=== PATIENT | male | born 1940 | race Caucasian/White ===

== ENCOUNTER 2018-02-21 10:11 | Inpatient (IN) | payer MEDICARE ==
--- NOTE | 2018-02-21 11:05 | ED ---
General Adult HPI - General Chief complaint: Chest Pain Stated complaint: Abnormal EKG Time Seen by Provider: 02/21/18 10:15 Source: patient, RN notes reviewed Mode of arrival: ambulatory Limitations: no limitations - History of Present Illness Initial comments: This is a 77-year-old male who presents emergency Department complaining of shortness of breath over a week. Patient states she is no medical history. Patient states he comes in today because of shortness of breath got worse and his primary medical care doctor told him go to the hospital. Patient was also noticed increased edema in his legs. Patient states shortness of breath is much worse with exertion. Patient denies any chest pain palpitations. Patient denies any abdominal pain patient denies nausea vomiting diarrhea. Patient denies headache patient denies numbness weakness. Patient denies any near syncopal or syncopal episodes. - Related Data Home Medications Medication Instructions Recorded Confirmed Finasteride 1 mg PO DAILY 07/13/16 07/13/16 Previous Rx's Medication Instructions Recorded Cephalexin [Keflex] 500 mg PO Q12HR 7 Days cap 07/14/16 Allergies Allergy/AdvReac Type Severity Reaction Status Date / Time No Known Allergies Allergy Verified 02/21/18 10:25 Review of Systems ROS Statement: Those systems with pertinent positive or pertinent negative responses have been documented in the HPI. ROS Other: All systems not noted in ROS Statement are negative. Past Medical History Past Medical History: Prostate Disorder History of Any Multi-Drug Resistant Organisms: None Reported Past Surgical History: Appendectomy Past Psychological History: No Psychological Hx Reported Smoking Status: Never smoker Past Alcohol Use History: Rare Past Drug Use History: None Reported General Exam - General Exam Comments Initial Comments: GENERAL: Patient is well-developed and well-nourished. Patient is nontoxic and well- hydrated and is in mild distress. ENT: Neck is soft and supple. No significant lymphadenopathy is noted. Oropharynx is clear. Moist mucous membranes. Neck has full range of motion without eliciting any pain. EYES: The sclera were anicteric and conjunctiva were pink and moist. Extraocular movements were intact and pupils were equal round and reactive to light. Eyelids were unremarkable. PULMONARY: Unlabored respirations. Good breath sounds bilaterally. No audible rales rhonchi or wheezing was noted. CARDIOVASCULAR: There is a regular rate and rhythm without any murmurs gallops or rubs. ABDOMEN: Soft and nontender with normal bowel sounds. No palpable organomegaly was noted. There is no palpable pulsatile mass. SKIN: Skin is clear with no lesions or rashes and otherwise unremarkable. NEUROLOGIC: Patient is alert and oriented x3. Cranial nerves II through XII are grossly intact. Motor and sensory are also intact. Normal speech, volume and content. Symmetrical smile. MUSCULOSKELETAL: Normal extremities with adequate strength and full range of motion. 2+ bilateral edema LYMPHATICS: No significant lymphadenopathy is noted PSYCHIATRIC: Normal psychiatric evaluation. Normal interpersonal interactions appears functionally intact in deals appropriately with others. No signs of depression. No signs of anxiety. Limitations: no limitations Course Vital Signs 02/21/18 02/21/18 10:21 10:41 Temperature 97.1 F L Pulse Rate 67 65 Respiratory 24 24 Rate Blood Pressure 200/100 192/94 O2 Sat by Pulse 91 L 95 Oximetry Medical Decision Making - Medical Decision Making EKG shows normal sinus rhythm at 73 bpm NE interval 240 QRS is 114 QT interval 420 QTC is 462. Patient's EKG shows no ST segment elevation or depression or T wave abnormalities are noted. Chest x-ray shows pulmonary edema. I gave the patient Lasix and placed Nitropaste on his chest. I spoke with Dr. Lombardo he agreed to admit the patient admitted I wrote admitting orders and I gave the patient Lasix and Nitropaste on the floor as well - Lab Data Result diagrams: 02/21/18 10:30 02/21/18 10:30 Lab Results 02/21/18 02/21/18 02/21/18 Range/Units 10:30 10:30 10:30 WBC 6.8 (3.8-10.6) k/uL RBC 4.22 L (4.30-5.90) m/uL Hgb 12.8 L (13.0-17.5) gm/dL Hct 37.6 L (39.0-53.0) % MCV 89.2 (80.0-100.0) fL MCH 30.2 (25.0-35.0) pg MCHC 33.9 (31.0-37.0) g/dL RDW 14.5 (11.5-15.5) % Plt Count 232 (150-450) k/uL Neutrophils % 75 % Lymphocytes % 15 % Monocytes % 7 % Eosinophils % 1 % Basophils % 0 % Neutrophils # 5.1 (1.3-7.7) k/uL Lymphocytes # 1.0 (1.0-4.8) k/uL Monocytes # 0.5 (0-1.0) k/uL Eosinophils # 0.1 (0-0.7) k/uL Basophils # 0.0 (0-0.2) k/uL PT (9.0-12.0) sec INR (<1.2) APTT (22.0-30.0) sec Sodium 147 H (137-145) mmol/L Potassium 4.1 (3.5-5.1) mmol/L Chloride 110 H (98-107) mmol/L Carbon Dioxide 24 (22-30) mmol/L Anion Gap 13 mmol/L BUN 25 H (9-20) mg/dL Creatinine 0.78 (0.66-1.25) mg/dL Est GFR (CKD-EPI)AfAm >90 (>60 ml/min/1.73 sqM) Est GFR (CKD-EPI)NonAf 87 (>60 ml/min/1.73 sqM) Glucose 99 (74-99) mg/dL Calcium 9.4 (8.4-10.2) mg/dL Magnesium 2.0 (1.6-2.3) mg/dL Total Bilirubin 1.5 H (0.2-1.3) mg/dL AST 26 (17-59) U/L ALT 37 (21-72) U/L Alkaline Phosphatase 68 (38-126) U/L Total Creatine Kinase 331 H (55-170) U/L CK-MB (CK-2) 4.2 H* (0.0-2.4) ng/mL CK-MB (CK-2) Rel Index 1.3 Troponin I 0.047 H* (0.000-0.034) ng/mL NT-Pro-B Natriuret Pep pg/mL Total Protein 6.6 (6.3-8.2) g/dL Albumin 3.8 (3.5-5.0) g/dL 02/21/18 02/21/18 Range/Units 10:30 10:30 WBC (3.8-10.6) k/uL RBC (4.30-5.90) m/uL Hgb (13.0-17.5) gm/dL Hct (39.0-53.0) % MCV (80.0-100.0) fL MCH (25.0-35.0) pg MCHC (31.0-37.0) g/dL RDW (11.5-15.5) % Plt Count (150-450) k/uL Neutrophils % % Lymphocytes % % Monocytes % % Eosinophils % % Basophils % % Neutrophils # (1.3-7.7) k/uL Lymphocytes # (1.0-4.8) k/uL Monocytes # (0-1.0) k/uL Eosinophils # (0-0.7) k/uL Basophils # (0-0.2) k/uL PT 13.2 H (9.0-12.0) sec INR 1.4 H (<1.2) APTT 24.8 (22.0-30.0) sec Sodium (137-145) mmol/L Potassium (3.5-5.1) mmol/L Chloride (98-107) mmol/L Carbon Dioxide (22-30) mmol/L Anion Gap mmol/L BUN (9-20) mg/dL Creatinine (0.66-1.25) mg/dL Est GFR (CKD-EPI)AfAm (>60 ml/min/1.73 sqM) Est GFR (CKD-EPI)NonAf (>60 ml/min/1.73 sqM) Glucose (74-99) mg/dL Calcium (8.4-10.2) mg/dL Magnesium (1.6-2.3) mg/dL Total Bilirubin (0.2-1.3) mg/dL AST (17-59) U/L ALT (21-72) U/L Alkaline Phosphatase (38-126) U/L Total Creatine Kinase (55-170) U/L CK-MB (CK-2) (0.0-2.4) ng/mL CK-MB (CK-2) Rel Index Troponin I (0.000-0.034) ng/mL NT-Pro-B Natriuret Pep 4100 pg/mL Total Protein (6.3-8.2) g/dL Albumin (3.5-5.0) g/dL Critical Care Time Critical Care Time: Yes Total Critical Care Time: 35 Disposition Clinical Impression: Acute pulmonary edema Disposition: ADMITTED IP TO THIS HOSP Referrals: Trino Muñoz MD [Primary Care Provider] - 1-2 days Time of Disposition: 12:59
[2018-02-21 11:13] LABS: Basophils % (A) 0 %; Eosinophils # (A) 0.1 k/uL (0-0.7); Eosinophils % (A) 1 %; HCT 37.6 % (39.0-53.0); HGB 12.8 gm/dL (13.0-17.5); Lymphocytes % (A) 15 %; MCH 30.2 pg (25.0-35.0); MCHC 33.9 g/dL (31.0-37.0); MCV 89.2 fL (80.0-100.0); Mean Platelet Volume 7.5; Monocytes # (A) 0.5 k/uL (0-1.0); Monocytes % (A) 7 %; Neutrophils # (A) 5.1 k/uL (1.3-7.7); Neutrophils % (A) 75 %; Platelet Count 232 k/uL (150-450); RBC 4.22 m/uL (4.30-5.90); RDW 14.5 % (11.5-15.5); WBC 6.8 k/uL (3.8-10.6)
[2018-02-21 11:23] LABS: ALT 37 U/L (21-72); AST 26 U/L (17-59); Albumin 3.8 g/dL (3.5-5.0); Alkaline Phosphatase 68 U/L (38-126); Anion Gap 13 mmol/L; Blood Urea Nitrogen 25 mg/dL (9-20); Calcium 9.4 mg/dL (8.4-10.2); Carbon Dioxide 24 mmol/L (22-30); Chloride 110 mmol/L (98-107); Glucose 99 mg/dL (74-99); Potassium 4.1 mmol/L (3.5-5.1); Sodium 147 mmol/L (137-145); Total Bilirubin 1.5 mg/dL (0.2-1.3); Total Protein 6.6 g/dL (6.3-8.2)
[2018-02-21 11:40] LABS: Partial Thromboplastin Time 24.8 sec (22.0-30.0)
[2018-02-21 11:42] LABS: INR 1.4 (<1.2); Prothrombin Time 13.2 sec (9.0-12.0)
[2018-02-21 11:48] LABS: Creatine Kinase MB 4.2 ng/mL (0.0-2.4); Troponin I 0.047 ng/mL (0.000-0.034)
[2018-02-21] MEDS ORDERED: NITROGLYCERIN OINT 1 INCH/GM PACKET TOPICAL STA (12:16)
[2018-02-21] MEDS: FUROSEMIDE 10 MG/ML 2 ML VIAL IV STA ×2 (12:35→13:02)
[2018-02-21] MEDS ORDERED: FUROSEMIDE 10 MG/ML 2 ML VIAL IV ONE (12:39)
--- NOTE | 2018-02-21 12:41 | XR ---
EXAMINATION TYPE: XR chest 2V DATE OF EXAM: 02/21/2018 COMPARISON: Prior chest 04/03/2013 HISTORY: Difficulty breathing TECHNIQUE: Frontal and lateral views of the chest are obtained. FINDINGS: Prominent lung volumes suggest underlying COPD. There is patchy basilar density present po steriorly, the interstitium is diffusely increased. Thoracic aorta appears is dense. No evident pneum othorax. Heart size is borderline increased, there is blunting of the costophrenic angles. IMPRESSION: Correlate for pulmonary venous hypertension and interstitial edema patient with pre-exis ting COPD. Follow up recommended. There may be small effusions.
[2018-02-21] MEDS ORDERED: ASPIRIN 325 MG TAB PO STA (12:59)
[2018-02-21] MEDS ORDERED: FUROSEMIDE 10 MG/ML 4 ML VIAL IV SCH (13:00)
[2018-02-21] MEDS: NITROGLYCERIN OINT 1 INCH/GM PACKET TOPICAL SCH ×3 (13:02→22:30)
[2018-02-21] MEDS: FUROSEMIDE 10 MG/ML 4 ML VIAL IV SCH (18:00)
[2018-02-21] MEDS: TAMSULOSIN 0.4 MG CAP.ER.24H PO SCH (19:00)
[2018-02-21] MEDS ORDERED: ALBUTEROL NEBULIZED 2.5 MG/3 ML INHALATION PRN (19:14)
[2018-02-21] MEDS ORDERED: HEPARIN SODIUM,PORCINE 5,000 UNIT/ML 1 ML VIAL IV PRN (19:16)
--- NOTE | 2018-02-21 19:23 | P.HPIM ---
History of Present Illness patient is a very pleasant 77-year-old gentleman came in with complaints of shortness of breath has been going on for about a month much worse for last couple days patient was also complaining of chest pressure-like sensation for about a week denied any diaphoresis denied any nausea vomiting patient was also comparing of orthopnea for last 3 days and the proximal nocturnal dyspnea for the last 3 days. Patient is found to have pulmonary edema with elevated BNP and also JVD patient apparently complained upper lid edema which I did not see on my evaluation. Patient has minimally elevated the troponin of 0.047 patient was started on IV heparin patient was started on IV Lasix. Echocardiogram will be ordered cardiology was consulted. Patient apparently has benign prostatic hypertrophy unable to urinate with Lasix because of which only catheter was placed patient will be started on Flomax patient is being treated for bronchitis with levofloxacin which I do not believe he has on levofloxacin will be discontinued patient was never smoker but does have emphysematous changes on the chest x-ray Review of Systems REVIEW OF SYSTEMS: CONSTITUTIONAL: No fever, no malaise, no fatigue. HEENT: No recent visual problems or hearing problems. Denied any sore throat. CARDIOVASCULAR: as mentioned in HPI PULMONARY: , no cough, no hemoptysis. GASTROINTESTINAL: No diarrhea, no nausea, no vomiting, no abdominal pain. Normoactive bowel sounds. NEUROLOGICAL: No headaches, no weakness, no numbness. HEMATOLOGICAL: Denies any bleeding or petechiae. GENITOURINARY: Denies any burning micturition, frequency, or urgency. MUSCULOSKELETAL/RHEUMATOLOGICAL: Denies any joint pain, swelling, or any muscle pain. ENDOCRINE: Denies any polyuria or polydipsia. The rest of the 14-point review of systems is negative. Past Medical History Past Medical History: Prostate Disorder History of Any Multi-Drug Resistant Organisms: None Reported Past Surgical History: Appendectomy, Heart Catheterization Past Anesthesia/Blood Transfusion Reactions: No Reported Reaction Past Psychological History: No Psychological Hx Reported Smoking Status: Never smoker Past Alcohol Use History: Rare Past Drug Use History: None Reported Medications and Allergies Home Medications Medication Instructions Recorded Confirmed Type Albuterol Inhaler [Ventolin Hfa 1 - 2 puff INHALATION RT-Q4H PRN 02/21/18 History Inhaler] Finasteride [Proscar] 1 tab PO DAILY 02/21/18 02/21/18 History Fluticasone/Umeclidin/Vilanter 1 puff INHALATION RT-DAILY 02/21/18 02/21/18 History [Trelegy Ellipta 100-62.5-25] Levofloxacin [Levaquin] 500 mg PO DAILY 02/21/18 02/21/18 History Allergies Allergy/AdvReac Type Severity Reaction Status Date / Time No Known Allergies Allergy Verified 02/21/18 13:08 Physical Exam Vitals: Vital Signs Temp Pulse Pulse Resp BP BP Pulse Ox 02/21/18 18:41 98.1 F 53 L 18 148/71 96 02/21/18 17:22 98.6 F 51 L 20 154/87 98 02/21/18 16:28 58 L 16 156/80 98 02/21/18 15:00 65 16 165/78 98 02/21/18 14:00 63 16 174/91 98 02/21/18 13:00 98.0 F 65 18 153/75 96 02/21/18 10:41 65 24 192/94 95 02/21/18 10:21 97.1 F L 67 24 200/100 91 L Intake and Output 02/21/18 02/21/18 02/21/18 06:59 14:59 22:59 Output Total 1598 1800 Balance -1598 -1800 Output: Urine 800 1800 Post Void Residual 798 Stool 0 Other: Voiding Method Indwelling Catheter # Voids 0 # Bowel Movements 0 Weight 102.512 kg PHYSICAL EXAMINATION: GENERAL: The patient is alert and oriented x3, not in any acute distress. Well developed, well nourished. HEENT: Pupils are round and equally reacting to light. EOMI. No scleral icterus. No conjunctival pallor. Normocephalic, atraumatic. No pharyngeal erythema. No thyromegaly. CARDIOVASCULAR: S1 and S2 present. No murmurs, rubs, or gallops. patient does have elevated JVD PULMONARY: Chest is clear to auscultation, no wheezing, does have crackles bilateral lower lung bases. ABDOMEN: Soft, nontender, nondistended, normoactive bowel sounds. No palpable organomegaly. MUSCULOSKELETAL: No joint swelling or deformity. EXTREMITIES: No cyanosis, clubbing, or pedal edema. NEUROLOGICAL: Gross neurological examination did not reveal any focal deficits. SKIN: No rashes. Results CBC & Chem 7: 02/21/18 10:30 02/21/18 10:30 Labs: Abnormal Lab Results - Last 24 Hours (Table) 02/21/18 02/21/18 02/21/18 Range/Units 10:30 10:30 10:30 RBC 4.22 L (4.30-5.90) m/uL Hgb 12.8 L (13.0-17.5) gm/dL Hct 37.6 L (39.0-53.0) % PT (9.0-12.0) sec INR (<1.2) Sodium 147 H (137-145) mmol/L Chloride 110 H (98-107) mmol/L BUN 25 H (9-20) mg/dL Total Bilirubin 1.5 H (0.2-1.3) mg/dL Total Creatine Kinase 331 H (55-170) U/L CK-MB (CK-2) 4.2 H* (0.0-2.4) ng/mL Troponin I 0.047 H* (0.000-0.034) ng/mL 02/21/18 Range/Units 10:30 RBC (4.30-5.90) m/uL Hgb (13.0-17.5) gm/dL Hct (39.0-53.0) % PT 13.2 H (9.0-12.0) sec INR 1.4 H (<1.2) Sodium (137-145) mmol/L Chloride (98-107) mmol/L BUN (9-20) mg/dL Total Bilirubin (0.2-1.3) mg/dL Total Creatine Kinase (55-170) U/L CK-MB (CK-2) (0.0-2.4) ng/mL Troponin I (0.000-0.034) ng/mL Thrombosis Risk Factor Assmnt - Choose All That Apply Each Risk Factor Represents 3 Points: Age 75 years or older Thrombosis Risk Factor Assessment Total Risk Factor Score: 3 Thrombosis Risk Factor Assessment Level: Moderate Risk Assessment and Plan Plan: pulmonary edema: Probably related to acute systolic dysfunction with acute exacerbation. Patient was started on IV Lasix which will be continued. -possible non-ST elevation microinfarction leading to acute pulmonary edema: Echocardiogram will be obtained patient has nitro patch in place and patient will will be started on IV heparin cardiology was consulted. -Benign prostatic hypertrophy. -Acute respiratory failure secondary to congestive heart failure exacerbation.
[2018-02-21] MEDS ORDERED: HEPARIN SODIUM,PORCINE 5,000 UNIT/ML 1 ML VIAL IV ONE (19:30)
[2018-02-21 19:58] LABS: Basophils % (A) 0 %; Eosinophils # (A) 0.1 k/uL (0-0.7); Eosinophils % (A) 1 %; HCT 36.7 % (39.0-53.0); HGB 12.4 gm/dL (13.0-17.5); Lymphocytes # (A) 1.2 k/uL (1.0-4.8); Lymphocytes % (A) 14 %; MCH 30.2 pg (25.0-35.0); MCHC 33.8 g/dL (31.0-37.0); MCV 89.5 fL (80.0-100.0); Mean Platelet Volume 7.6; Monocytes # (A) 0.7 k/uL (0-1.0); Monocytes % (A) 7 %; Neutrophils # (A) 6.7 k/uL (1.3-7.7); Neutrophils % (A) 76 %; Platelet Count 232 k/uL (150-450); RDW 14.4 % (11.5-15.5); WBC 8.8 k/uL (3.8-10.6)
[2018-02-21 20:23] LABS: INR 1.4 (<1.2); Partial Thromboplastin Time 25.5 sec (22.0-30.0); Prothrombin Time 13.3 sec (9.0-12.0)
[2018-02-21] MEDS: HEPARIN SOD,PORK IN 0.45% NACL 25,000 UNIT in 0.45% NACL 1 500ML.BAG IV SCH (21:13)
[2018-02-22 04:00] LABS: Basophils % (A) 0 %; Eosinophils # (A) 0.2 k/uL (0-0.7); Eosinophils % (A) 2 %; HCT 37.5 % (39.0-53.0); HGB 11.8 gm/dL (13.0-17.5); Lymphocytes # (A) 1.2 k/uL (1.0-4.8); Lymphocytes % (A) 16 %; MCH 28.4 pg (25.0-35.0); MCHC 31.5 g/dL (31.0-37.0); MCV 90.3 fL (80.0-100.0); Mean Platelet Volume 8.1; Monocytes # (A) 0.6 k/uL (0-1.0); Monocytes % (A) 8 %; Neutrophils # (A) 5.3 k/uL (1.3-7.7); Neutrophils % (A) 72 %; Platelet Count 220 k/uL (150-450); RBC 4.16 m/uL (4.30-5.90); RDW 14.5 % (11.5-15.5); WBC 7.3 k/uL (3.8-10.6)
[2018-02-22 04:16] LABS: Anion Gap 10 mmol/L; Blood Urea Nitrogen 22 mg/dL (9-20); Calcium 9.4 mg/dL (8.4-10.2); Carbon Dioxide 28 mmol/L (22-30); Chloride 105 mmol/L (98-107); Glucose 102 mg/dL (74-99); Potassium 3.9 mmol/L (3.5-5.1); Sodium 143 mmol/L (137-145)
[2018-02-22] MEDS: FUROSEMIDE 10 MG/ML 4 ML VIAL IV SCH ×2 (05:09→18:42)
[2018-02-22] MEDS: UMECLIDIN INHALATION SCH (08:03)
[2018-02-22] MEDS: VILANTER INHALATION SCH (08:03)
[2018-02-22] MEDS: FLUTICASONE INHALATION SCH (08:03)
[2018-02-22] MEDS: NITROGLYCERIN OINT 1 INCH/GM PACKET TOPICAL SCH ×4 (08:17→20:52)
[2018-02-22] MEDS: ASPIRIN 325 MG TAB PO SCH (08:17)
[2018-02-22] MEDS: FINASTERIDE 5 MG TAB PO SCH (08:17)
[2018-02-22 09:09] LABS: Cholesterol 147 mg/dL (<200); HDL Cholesterol 40 mg/dL (40-60); LDL Cholesterol,Calculated 95 mg/dL (0-99); Triglycerides 61 mg/dL (<150)
--- NOTE | 2018-02-22 09:22 | CONS ---
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 He also has intermittent episodes of chest pressure. His shortness of breath is moderate in intensity, comes on with exertion and is relieved with rest. Over the last 24-48 hours, this has gotten worse. He was evaluated by his primary care physician who felt that the patient had a recent myocardial infarction and hence sent him to hospital. EKG shows sinus rhythm with evidence of anteroseptal myocardial infarction. Cardiac enzymes are elevated with troponin of 0.04, 06 and 06. BNP is elevated at 4100. His potassium is 3.9, creatinine is 0.9. Hemoglobin is 11.8. His clinical presentation is consistent with acute onset congestive heart failure, probably secondary to LV systolic dysfunction in a patient with myocardial infarction and ischemic heart disease. I advised the patient to undergo cardiac catheterization to evaluate his coronary anatomy and streamline his management. I am going to do this tomorrow. I will obtain a 2D echo on him to document his LV function. In the meantime, I will treat him with aspirin, intravenous Lasix, heparin, continue the nitro paste that he is currently on. Blood pressure is poorly controlled. I am going to add RAIZA inhibitors and we will obtain a lipid profile and start him on statins. PAST MEDICAL HISTORY: Negative for hypertension, diabetes, dyslipidemia. CURRENT MEDICATIONS: Include inhaler, Levaquin, Proscar and Proscar is the only medicine that he regularly takes and the others have been recently started. ALLERGIES: No known drug allergies. FAMILY HISTORY: Negative for premature coronary artery disease. SOCIAL HISTORY: Negative for smoking, ETOH abuse and drug abuse. REVIEW OF SYSTEMS: HEENT is unremarkable. Cardiac as described above. RESPIRATORY: As described above. GI negative. negative. Allergy none. Skin negative. Musculoskeletal significant for arthritis. Hematological: Negative. Endocrine: Negative. CONSTITUTIONAL: Negative. Derm: Negative. ONCOLOGICAL: Negative. Rest of the system review is not relevant. PHYSICAL EXAM: Heart rate is 50 beats per minute, blood pressure is 156/74, respirations 18. There is no jugular venous distention. Carotid upstroke is diminished. There is no bruit. Chest exam reveals good air entry bilaterally. Heart exam reveals first and second heart sounds. No gallop. No murmur. No rub. Abdomen is soft, nontender. Exam of the extremities did not reveal any edema. Pulses palpable. Extremities reveals bilateral 1+ edema. Peripheral pulses are felt. LAB: Showed a hemoglobin of 11.8, potassium is 3.9, creatinine is 0.9. Three sets of tropes are mildly elevated. BNP is elevated at 4100. EKG is abnormal, shows evidence of prior anteroseptal myocardial infarction. Chest x-ray shows pulmonary congestion. ASSESSMENT: 1. Acute onset congestive heart failure, probably systolic. 2. Non ST-segment elevation myocardial infarction. 3. Hypertension. 4. History of pulmonary embolism. PLAN: I am going to treat the patient with aspirin, nitrates, RAIZA inhibitors, statins, intravenous heparin and continue the IV Lasix. Schedule him for cardiac catheterization tomorrow. Obtain a 2D echo. I am not going to start him on beta blockers given the bradycardia that the patient has. Thank you for allowing us to participate in the care of this pleasant gentleman. MMMERCEDL / IJN: [id number] /
--- NOTE | 2018-02-22 12:44 | P.PN ---
Subjective Patient was admitted for acute systolic dysfunction from possible acute myocardial infarction. Patient's creatinine remained stable patient is receiving IV Lasix which will be continued possibly of cardiac catheterization tomorrow. Patient is feeling much better today patient respiratory status improved significantly compared to yesterday. Constitutional: Denied any fatigue denied any fever. Cardio vascular: denied any chest pain, palpitations Gastrointestinal denied any nausea vomiting Pulmonary: Denied any shortness of breath cough Neurologic denied any new focal deficits Objective - Vital Signs Vital signs: Vital Signs Temp 98.2 F 02/22/18 12:00 Pulse 56 L 02/22/18 12:00 Resp 18 02/22/18 12:00 BP 166/69 02/22/18 12:00 Pulse Ox 96 02/22/18 12:00 Intake & Output 02/21/18 02/22/18 02/22/18 18:59 06:59 18:59 Intake Total 145.667 433.924 Output Total 3398 2950 5700 Balance -3398 -2804.333 -5266.076 Weight 102.512 kg 101.2 kg Intake: Intake, IV Titration 145.667 193.924 Amount Heparin Sod,Pork in 0.45% 145.667 193.924 NaCl 25,000 unit In 0.45 % NaCl 1 500ml.bag @ 9. 755 UNITS/KG/HR 20 mls/hr IV .Q24H [facility] Rx#: [id number] Oral 240 Output: Urine 2600 2950 5700 Post Void Residual 798 Stool 0 0 0 Other: Voiding Method Indwelling Catheter Indwelling Catheter Indwelling Catheter # Voids 0 0 0 # Bowel Movements 0 - Exam PHYSICAL EXAMINATION: GENERAL: The patient is alert and oriented x3, not in any acute distress. Well developed, well nourished. HEENT: Pupils are round and equally reacting to light. EOMI. No scleral icterus. No conjunctival pallor. Normocephalic, atraumatic. No pharyngeal erythema. No thyromegaly. CARDIOVASCULAR: S1 and S2 present. No murmurs, rubs, still has elevated JVD PULMONARY: Patient still has bibasilar crackles fairly good air entry into bilateral lung woodson ABDOMEN: Soft, nontender, nondistended, normoactive bowel sounds. No palpable organomegaly. MUSCULOSKELETAL: No joint swelling or deformity. EXTREMITIES: No cyanosis, clubbing, or pedal edema. NEUROLOGICAL: Gross neurological examination did not reveal any focal deficits. SKIN: No rashes. - Labs CBC & Chem 7: 02/22/18 03:43 02/22/18 03:43 Labs: Abnormal Lab Results - Last 24 Hours (Table) 02/21/18 02/21/18 02/21/18 Range/Units 19:28 19:28 19:28 RBC 4.10 L (4.30-5.90) m/uL Hgb 12.4 L (13.0-17.5) gm/dL Hct 36.7 L (39.0-53.0) % PT 13.3 H (9.0-12.0) sec INR 1.4 H (<1.2) APTT (22.0-30.0) sec BUN (9-20) mg/dL Glucose (74-99) mg/dL Troponin I 0.063 H* (0.000-0.034) ng/mL 02/22/18 02/22/18 02/22/18 Range/Units 00:39 03:43 03:43 RBC 4.16 L (4.30-5.90) m/uL Hgb 11.8 L (13.0-17.5) gm/dL Hct 37.5 L (39.0-53.0) % PT (9.0-12.0) sec INR (<1.2) APTT (22.0-30.0) sec BUN 22 H (9-20) mg/dL Glucose 102 H (74-99) mg/dL Troponin I 0.063 H* (0.000-0.034) ng/mL 02/22/18 Range/Units 10:44 RBC (4.30-5.90) m/uL Hgb (13.0-17.5) gm/dL Hct (39.0-53.0) % PT (9.0-12.0) sec INR (<1.2) APTT 30.3 H (22.0-30.0) sec BUN (9-20) mg/dL Glucose (74-99) mg/dL Troponin I (0.000-0.034) ng/mL Assessment and Plan Plan: pulmonary edema: Probably related to acute systolic dysfunction with acute exacerbation. Patient is on IV Lasix which will be continued. -possible non-ST elevation microinfarction leading to acute pulmonary edema: Echocardiogram will be obtained patient has nitro patch in place and patient will will be started on IV heparin cardiology was consulted. -Benign prostatic hypertrophy. -Acute respiratory failure secondary to congestive heart failure exacerbation.
[2018-02-22] MEDS: FAMOTIDINE 20 MG TAB PO SCH ×2 (13:41→20:51)
[2018-02-22] MEDS: ATORVASTATIN 20 MG TAB PO SCH (13:41)
[2018-02-22] MEDS: TAMSULOSIN 0.4 MG CAP.ER.24H PO SCH (18:43)
[2018-02-22] MEDS: HEPARIN SOD,PORK IN 0.45% NACL 25,000 UNIT in 0.45% NACL 1 500ML.BAG IV SCH (20:52)
[2018-02-23 06:20] LABS: Basophils % (A) 0 %; Eosinophils # (A) 0.2 k/uL (0-0.7); Eosinophils % (A) 2 %; HCT 40.7 % (39.0-53.0); HGB 13.7 gm/dL (13.0-17.5); Lymphocytes # (A) 1.3 k/uL (1.0-4.8); Lymphocytes % (A) 17 %; MCH 29.8 pg (25.0-35.0); MCHC 33.6 g/dL (31.0-37.0); MCV 88.7 fL (80.0-100.0); Mean Platelet Volume 7.3; Monocytes # (A) 0.7 k/uL (0-1.0); Monocytes % (A) 9 %; Neutrophils # (A) 5.4 k/uL (1.3-7.7); Neutrophils % (A) 70 %; Platelet Count 245 k/uL (150-450); RBC 4.59 m/uL (4.30-5.90); RDW 14.2 % (11.5-15.5); WBC 7.8 k/uL (3.8-10.6)
[2018-02-23 06:30] LABS: Calcium 9.5 mg/dL (8.4-10.2); Potassium 4.3 mmol/L (3.5-5.1)
[2018-02-23] MEDS: FUROSEMIDE 10 MG/ML 4 ML VIAL IV SCH (06:41)
[2018-02-23] MEDS ORDERED: ALPRAZolam 0.25 MG TAB PO PRN (07:53)
[2018-02-23] MEDS ORDERED: ATORVASTATIN 80 MG TAB PO STA (07:53)
[2018-02-23] MEDS ORDERED: SODIUM CHLORIDE 0.9% 1,000 ML in EMPTY BAG 1 BAG IV ONE (07:53)
[2018-02-23] MEDS ORDERED: ASPIRIN 325 MG TAB PO STA (07:53)
[2018-02-23] MEDS ORDERED: NITROGLYCERIN SL TABS 0.4 MG TAB SUBLINGUAL PRN ×2 (07:53→13:26)
[2018-02-23] MEDS ORDERED: ALPRAZolam 0.5 MG TAB PO PRN (07:53)
[2018-02-23] MEDS: FINASTERIDE 5 MG TAB PO SCH (08:10)
[2018-02-23] MEDS: FAMOTIDINE 20 MG TAB PO SCH ×2 (08:10→21:51)
[2018-02-23] MEDS: ATORVASTATIN 20 MG TAB PO SCH (08:10)
[2018-02-23] MEDS: ASPIRIN 325 MG TAB PO SCH (08:11)
[2018-02-23] MEDS: NITROGLYCERIN OINT 1 INCH/GM PACKET TOPICAL SCH (08:12)
[2018-02-23] MEDS: UMECLIDIN INHALATION SCH (08:18)
[2018-02-23] MEDS: FLUTICASONE INHALATION SCH (08:18)
[2018-02-23] MEDS: VILANTER INHALATION SCH (08:18)
[2018-02-23] MEDS ORDERED: MIDAZOLAM 2 MG/2 ML VIAL IV ONE (10:42)
[2018-02-23] MEDS ORDERED: IV FLUID CONTINUATION 1,000 ML IV ONE (10:47)
[2018-02-23] MEDS ORDERED: LIDOCAINE 2% INJ 20 MG/ML SQ ONE (10:47)
[2018-02-23] MEDS ORDERED: fentaNYL (PF) 50 MCG/ML 2 ML AMP IV ONE (11:25)
--- NOTE | 2018-02-23 12:05 | CC ---
CARDIAC CATHETERIZATION REPORT INDICATION: Non ST-segment elevation myocardial infarction. After obtaining informed consent, left heart catheterization, coronary angiogram are performed via the right femoral artery using standard Napoleon catheters. The patient tolerated the procedure well without any obvious immediate complications. Patient received moderate conscious sedation. Total sedation time was 30 minutes. The patient has a very tortuous aorta. I could not engage the left coronary artery using the size 4 or size 5 Napoleon catheter, but was able to engage it using a multipurpose catheter. Right coronary artery was engaged using a Agustin posterior catheter after trying Napoleon and bill catheters. FINDINGS: 1. RIGHT CORONARY ARTERY: Right coronary artery is a large dominant vessel and is free of significant stenosis. There is a mild atherosclerotic plaque in its proximal portion. 2. Left main coronary artery is a normal-sized vessel and is free of stenosis appears calcified, but is free of significant disease. Divides into circumflex coronary artery and left anterior descending coronary artery. 3. and its branches are free of significant stenosis. Left anterior descending coronary artery appears subtotally occluded just after the origin of the large septal can washer, but is the large vessel that seems to wrap around the apex of the heart. CONCLUSIONS: 1. 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 2. 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 PLAN: I am going to have Dr. Hurtado the on-call hospital orderly attempt angioplasty of the LAD. MMMERCEDL / ROBERTN: [id number] /
[2018-02-23] MEDS ORDERED: BIVALIRUDIN BOLUS 250 MG/50 ML IV ONE (12:44)
[2018-02-23] MEDS ORDERED: BIVALIRUDIN 250 MG in SODIUM CHLORIDE 0.9% 50 ML IV ONE (12:45)
[2018-02-23] MEDS ORDERED: CLOPIDOGREL 75 MG TAB PO ONE (12:47)
[2018-02-23] MEDS ORDERED: NITROGLYCERIN 1000MCG/10ML SYRINGE INTRACORON ONE (12:52)
--- NOTE | 2018-02-23 12:52 | ECHOF ---
Referral Reason:CHF MEASUREMENTS -------- HEIGHT: 180.3 cm WEIGHT: 101.2 kg BP: 128/82 IVSd: 1.2 cm (0.6 - 1.1) LVIDd: 4.4 cm (3.9 - 5.3) LVPWd: 1.2 cm (0.6 - 1.1) IVSs: 1.6 cm LVIDs: 3.5 cm LVPWs: 1.5 cm LAESV Index (A-L): 24.67 ml/m Ao Diam: 3.8 cm (2.0 - 3.7) AV Cusp: 1.9 cm (1.5 - 2.6) LA Diam: 4.6 cm (2.7 - 3.8) MV EXCURSION: 14.577 mm (> 18.000) MV EF SLOPE: 30 mm/s (70 - 150) EPSS: 2.7 cm MV E Pool: 0.45 m/s MV DecT: 215 ms MV A Pool: 0.68 m/s MV E/A Ratio: 0.66 AR PHT: 652 ms RAP: 5.00 mmHg RVSP: 9.86 mmHg FINDINGS -------- Sinus rhythm. Resting bradycardia (HR<60bpm). This was a technically good study. The left ventricular size is normal. There is mild concentric left ventricular hypertrophy. Overa ll left ventricular systolic function is mild-moderately impaired with, an EF between 40 - 45 %. Ap ical anterior LV wall motion is hypokinetic. Apical inferior LV wall motion is hypokinetic. The right ventricle is normal in size and function. The left atrium is mildly dilated. The right atrium is normal in size. Aortic valve is trileaflet and is mildly thickened. There is mild aortic regurgitation. The mitral valve leaflets are mildly thickened. There is trace mitral regurgitation. Trace tricuspid regurgitation present. The right ventricular systolic pressure, as measured by Dopp ler, is 9.86mmHg. Pulmonic valve appears structurally normal. The aortic root is mildy dilated. Normal inferior vena cava with normal inspiratory collapse consistent with estimated right atrial pre ssure of 5 mmHg. The pericardium is normal. CONCLUSIONS -------- 1. Sinus rhythm. 2. Resting bradycardia (HR<60bpm). 3. This was a technically good study. 4. The left ventricular size is normal. 5. There is mild concentric left ventricular hypertrophy. 6. Overall left ventricular systolic function is mild-moderately impaired with, an EF between 40 - 45 %. 7. The right ventricle is normal in size and function. 8. The left atrium is mildly dilated. 9. The right atrium is normal in size. 10. Aortic valve is trileaflet and is mildly thickened. 11. There is mild aortic regurgitation. 12. The mitral valve leaflets are mildly thickened. 13. There is trace mitral regurgitation. 14. Trace tricuspid regurgitation present. 15. The right ventricular systolic pressure, as measured by Doppler, is 9.86mmHg. 16. Pulmonic valve appears structurally normal. 17. The aortic root is mildy dilated. 18. Normal inferior vena cava with normal inspiratory collapse consistent with estimated right atrial pressure of 5 mmHg. 19. The pericardium is normal. TECHNICAL PUBLICATIONS WRITER: Re Lagos RDCS
--- NOTE | 2018-02-23 13:06 | P.PN ---
Subjective Patient was admitted for acute systolic dysfunction from possible acute myocardial infarction. Patient's creatinine remained stable patient is receiving IV Lasix which will be continued possibly of cardiac catheterization tomorrow. Patient is feeling much better today patient respiratory status improved significantly compared to yesterday. 02/23/2018 Patient has genitourinary bleeding because of which heparin was discontinued. Patient has ejection fraction of 40-45% underwent cardiac catheterization showed LAD occlusion will undergo stenting of proximal LAD today. Constitutional: Denied any fatigue denied any fever. Cardio vascular: denied any chest pain, palpitations Gastrointestinal denied any nausea vomiting Pulmonary: Denied any shortness of breath cough Neurologic denied any new focal deficits Objective - Vital Signs Vital signs: Vital Signs Temp 97.1 F L 02/23/18 08:00 Pulse 57 L 02/23/18 08:00 Resp 24 02/23/18 08:00 BP 120/69 02/23/18 08:00 Pulse Ox 92 L 02/23/18 08:00 Intake & Output 02/22/18 02/23/18 02/23/18 18:59 06:59 18:59 Intake Total 910.924 160 Output Total 6300 2600 800 Balance -5389.076 -2600 -640 Weight 103.2 kg Intake: IV 160 Sodium Chloride 0.9% 1, 160 000 ml In Empty Bag 1 bag @ 1 ML/KG/HR 103.2 mls/ hr IV .Q9H42M ONE Rx#: [id number] Intake, IV Titration 193.924 Amount Heparin Sod,Pork in 0.45% 193.924 NaCl 25,000 unit In 0.45 % NaCl 1 500ml.bag @ 9. 755 UNITS/KG/HR 20 mls/hr IV .Q24H [facility] Rx#: [id number] Oral 717 Output: Urine 6300 2600 800 Uretheral (Hair) 750 Stool 0 0 Other: Voiding Method Indwelling Catheter Indwelling Catheter Indwelling Catheter # Voids 0 - Exam PHYSICAL EXAMINATION: GENERAL: The patient is alert and oriented x3, not in any acute distress. Well developed, well nourished. HEENT: Pupils are round and equally reacting to light. EOMI. No scleral icterus. No conjunctival pallor. Normocephalic, atraumatic. No pharyngeal erythema. No thyromegaly. CARDIOVASCULAR: S1 and S2 present. No murmurs, rubs, still has elevated JVD PULMONARY: Patient still has bibasilar crackles fairly good air entry into bilateral lung woodson ABDOMEN: Soft, nontender, nondistended, normoactive bowel sounds. No palpable organomegaly. MUSCULOSKELETAL: No joint swelling or deformity. EXTREMITIES: No cyanosis, clubbing, or pedal edema. NEUROLOGICAL: Gross neurological examination did not reveal any focal deficits. SKIN: No rashes. - Labs CBC & Chem 7: 02/23/18 05:52 02/23/18 05:52 Labs: Abnormal Lab Results - Last 24 Hours (Table) 02/23/18 Range/Units 05:52 Carbon Dioxide 33 H (22-30) mmol/L BUN 25 H (9-20) mg/dL Glucose 109 H (74-99) mg/dL Assessment and Plan Plan: pulmonary edema: Probably related to acute systolic dysfunction with acute exacerbation. Patient is on IV Lasix which will be continued. And has EF of 40-45% -possible non-ST elevation microinfarction leading to acute pulmonary edema: Patient has occlusion of LAD will undergo stenting of LAD today -Benign prostatic hypertrophy. -Acute respiratory failure secondary to congestive heart failure exacerbation.
[2018-02-23] MEDS ORDERED: IOHEXOL 350 MG/ML 125ML BOTTLE INJ ONE (13:17)
[2018-02-23] MEDS ORDERED: ATROPINE SULFATE 0.1 MG/ML 10ML SYRINGE IV PRN (13:26)
[2018-02-23] MEDS ORDERED: ZOLPIDEM 5 MG TAB PO PRN (13:26)
[2018-02-23] MEDS ORDERED: RX INFO: IV CONTRAST WAS GIVEN 1 EACH MISC MISCELLANE PRN (13:26)
[2018-02-23] MEDS ORDERED: MAG HYDROX/AL HYDROX/SIMETH 30 ML CUP PO PRN (13:26)
[2018-02-23] MEDS ORDERED: SODIUM CHLORIDE 0.9% 1,000 ML IV SCH (13:30)
[2018-02-23 13:55] VITALS: BMI 32.6
[2018-02-23] MEDS ORDERED: LISINOPRIL 5 MG TAB PO STA (14:16)
--- NOTE | 2018-02-23 14:56 | AN ---
ANGIOGRAPHY REPORT CORONARY ANGIOPLASTY PROCEDURE NOTE: Mr. Cook is a 77-year-old male who presented with symptoms of dyspnea and mild elevation of the troponin. He is also complaining of chest discomfort that he has been having for a while. He underwent cardiac catheterization by Dr. Alejo and was found to have subtotally occluded mid LAD at the takeoff of the first septal fixed interest dealer. In view of that, recommendation made regarding angioplasty and stenting. The procedures, risks and complication were discussed with the patient who is in full understanding and agreement. PROCEDURE: Initially a 6-Danish EBU 3.75 guiding catheter introduced into the system. That catheter was exchanged to a 6-Danish LBU 4 and after cannulating the left main, a 0.014 advanced medium weight J-wire was advanced in the vessel but could not cross the lesion. That wire was removed and subsequently 0.014 whisper J-wire with the addition of a Fine Cross catheter were used to cross the total occlusion. After crossing the total occlusion, the Fine Cross catheter was removed and a 2.5 x 12 mm Trek balloon was advanced. Multiple inflations at 10 atmospheres were done, following that the balloon was removed and a 2.5 x 23 mm Xience Alpine stent was deployed, postdilated to 16 atmospheres. Following that, a 2.5 x 12 mm Xience Alpine stent was deployed proximal to the first one, post-dilated at 16 atmospheres. Following that, an inflation in the overlap segment at 16 atmospheres were done. Following that, the wire and the balloon was removed back in the guiding catheter. Images were obtained, repeated. Those images reveal stable successful stenting. At that point, the guiding catheter, the balloon and the guidewire were removed. The sheath was sutured in place. The patient is returned to his room in stable condition. Of note, the patient received Angiomax per protocol as well as oral loading dose of clopidogrel. He had chest discomfort with the inflation that improved at the end of the procedure. RESULT: Successful stenting of the totally occluded mid left anterior descending artery at the takeoff of the first septal fixed interest dealer with reduction of stenosis from 90% to 0%. RECOMMENDATION: The patient will be continued on aspirin, Plavix RAIZA inhibitor, and statin. The importance of dual antiplatelet treatment was discussed with the patient and he is in full understanding and agreement. Duration of the procedure is 55 minutes. MMODL / IJN: [id number] /
--- NOTE | 2018-02-23 14:59 | LTR ---
DATE OF SERVICE: 02/23/2018 RE: Rafiq Cook Dear Dr. Muñoz; I had the pleasure to perform coronary angioplasty on Mr. Cook at [facility] on February 23, 2018 and a full copy of the procedure note will be forwarded to you. In brief, he underwent successful stenting of his totally occluded LAD. I am hopeful that this procedure will stabilize his status and thank you again for allowing me to participate in this patient's care. Please feel free to call for any questions. Sincerely yours, Marine Hurtado MD MMMERCEDL / IJN: [id number] /
--- NOTE | 2018-02-23 16:45 | P.GSCN ---
History of Present Illness Consult date: 02/23/18 History of present illness: This 77-year-old gentleman is in the hospital with acute pulmonary edema, congestive heart failure and coronary artery blockage. He ended up having a cardiac cath with stent placement today. He went into urinary retention during his initial hospitalization during diuresis for his pulmonary edema. The patient admits to some difficulty with urination over the last week. He has had frequency and urgency as well as an increased nighttime urination. He is a patient urologically of Dr. Donnie Mckee at [facility]. He has been on finasteride. He recently was placed on tamsulosin during this hospitalization. He has not had previous urologic surgery. There is been no hematuria or incontinence. Review of Systems - Respiratory Reports dyspnea - Genitourinary Reports as per HPI - Musculoskeletal bilateral: ankle swelling Past Medical History Past Medical History: Prostate Disorder History of Any Multi-Drug Resistant Organisms: None Reported Past Surgical History: Appendectomy, Heart Catheterization Past Anesthesia/Blood Transfusion Reactions: No Reported Reaction Past Psychological History: No Psychological Hx Reported Smoking Status: Never smoker Past Alcohol Use History: Rare Past Drug Use History: None Reported Medications and Allergies Home Medications Medication Instructions Recorded Confirmed Type Albuterol Inhaler [Ventolin Hfa 1 - 2 puff INHALATION RT-Q4H PRN 02/21/18 History Inhaler] Finasteride [Proscar] 1 tab PO DAILY 02/21/18 02/21/18 History Fluticasone/Umeclidin/Vilanter 1 puff INHALATION RT-DAILY 02/21/18 02/21/18 History [Trelegy Ellipta 100-62.5-25] Levofloxacin [Levaquin] 500 mg PO DAILY 02/21/18 02/21/18 History Allergies Allergy/AdvReac Type Severity Reaction Status Date / Time No Known Allergies Allergy Verified 02/21/18 13:08 Surgical - Exam Vital Signs Temp Pulse Resp BP Pulse Ox 97.1 F L 67 24 200/100 91 L 02/21/18 10:21 02/21/18 10:21 02/21/18 10:21 02/21/18 10:21 02/21/18 10:21 - General well developed, well nourished, no distress - Eyes PERRL - ENT no hearing loss - Neck no masses - Respiratory normal expansion, normal respiratory effort - Abdomen Abdomen: soft, non tender - Genitourinary Indwelling catheter, normal scrotum testes epididymis. The 30-50 g soft benign prostate - Neurologic normal coordination, normal sensation - Musculoskeletal normal posture - Psychiatric oriented to time, oriented to person, oriented to place, speech is normal, memory intact Results - Labs 02/23/18 05:52 02/23/18 05:52 Abnormal Lab Results - Last 24 Hours (Table) 02/23/18 Range/Units 05:52 Carbon Dioxide 33 H (22-30) mmol/L BUN 25 H (9-20) mg/dL Glucose 109 H (74-99) mg/dL Diabetes panel 02/23/18 Range/Units 05:52 Sodium 142 (137-145) mmol/L Potassium 4.3 (3.5-5.1) mmol/L Chloride 99 (98-107) mmol/L Carbon Dioxide 33 H (22-30) mmol/L BUN 25 H (9-20) mg/dL Creatinine 1.00 (0.66-1.25) mg/dL Glucose 109 H (74-99) mg/dL Calcium 9.5 (8.4-10.2) mg/dL Calcium panel 02/23/18 Range/Units 05:52 Calcium 9.5 (8.4-10.2) mg/dL Pituitary panel 02/23/18 Range/Units 05:52 Sodium 142 (137-145) mmol/L Potassium 4.3 (3.5-5.1) mmol/L Chloride 99 (98-107) mmol/L Carbon Dioxide 33 H (22-30) mmol/L BUN 25 H (9-20) mg/dL Creatinine 1.00 (0.66-1.25) mg/dL Glucose 109 H (74-99) mg/dL Calcium 9.5 (8.4-10.2) mg/dL Adrenal panel 02/23/18 Range/Units 05:52 Sodium 142 (137-145) mmol/L Potassium 4.3 (3.5-5.1) mmol/L Chloride 99 (98-107) mmol/L Carbon Dioxide 33 H (22-30) mmol/L BUN 25 H (9-20) mg/dL Creatinine 1.00 (0.66-1.25) mg/dL Glucose 109 H (74-99) mg/dL Calcium 9.5 (8.4-10.2) mg/dL Assessment and Plan Assessment: Impression: Acute pulmonary edema with coronary artery blockage. Acute urinary retention during diuretic phase of pulmonary edema. BPH with obstruction Recommendations: The patient obviously has enlarged prostate by the fact that he has been on fast tried for some time. His urine retention was during the diuretic phase of his pulmonary edema. It is quite common see urine retention during this period of time especially in gentleman with large prostates. He has been started on tamsulosin. Soon as he is stable medically the catheter can be removed for a voiding trial. If is unable to go he may need an indwelling catheter with a second voiding trial as an outpatient either here in [place] or by his urologist at [facility]. Hopefully he won't need a surgical procedure. I'll follow this patient with you.
[2018-02-23] MEDS: TAMSULOSIN 0.4 MG CAP.ER.24H PO SCH (17:31)
[2018-02-23] MEDS ORDERED: ATORVASTATIN 80 MG TAB PO SCH (21:00)
[2018-02-24 04:33] VITALS: RESP 16
[2018-02-24] MEDS: NITROGLYCERIN OINT 1 INCH/GM PACKET TOPICAL SCH (04:49)
[2018-02-24 06:57] LABS: Basophils % (A) 0 %; Eosinophils # (A) 0.1 k/uL (0-0.7); Eosinophils % (A) 1 %; HGB 13.4 gm/dL (13.0-17.5); Lymphocytes # (A) 0.9 k/uL (1.0-4.8); Lymphocytes % (A) 11 %; MCH 29.1 pg (25.0-35.0); MCHC 32.7 g/dL (31.0-37.0); MCV 89.1 fL (80.0-100.0); Mean Platelet Volume 7.4; Monocytes # (A) 0.7 k/uL (0-1.0); Monocytes % (A) 9 %; Neutrophils # (A) 6.3 k/uL (1.3-7.7); Neutrophils % (A) 76 %; Platelet Count 268 k/uL (150-450); RDW 14.1 % (11.5-15.5); WBC 8.3 k/uL (3.8-10.6)
[2018-02-24 07:24] LABS: Calcium 8.9 mg/dL (8.4-10.2)
[2018-02-24] MEDS: FAMOTIDINE 20 MG TAB PO SCH (08:10)
[2018-02-24] MEDS: FINASTERIDE 5 MG TAB PO SCH (08:10)
[2018-02-24 08:17] VITALS: TEMP 97.6
[2018-02-24] MEDS ORDERED: LISINOPRIL 5 MG TAB PO SCH (09:00)
[2018-02-24] MEDS ORDERED: ASPIRIN 81 MG PO SCH (09:00)
[2018-02-24 12:33] VITALS: BP 111/68; PULSE 65
[2018-02-24] MEDS: FLUTICASONE INHALATION SCH (13:22)
[2018-02-24] MEDS: VILANTER INHALATION SCH (13:22)
[2018-02-24] MEDS: UMECLIDIN INHALATION SCH (13:22)
[2018-02-24] MEDS ORDERED: CLOPIDOGREL 75 MG TAB PO SCH (13:27)
--- NOTE | 2018-02-24 14:02 | P.DS ---
Providers Date of admission: 02/21/18 12:59 Attending physician: Emmie Lombardo Consults: 02/21/18 12:59 Consult Physician Routine Consulting Provider: Gail Toscano Consult Reason/Comments: Acute pulmonary edema Do you want consulting provider notified?: Yes 02/23/18 12:23 Consult Physician Routine Consulting Provider: Rafat Wills Reason/Comments: urine retention required peralta Do you want consulting provider notified?: Yes 02/23/18 13:26 Consult Physician Routine Consulting Provider: Gail Toscano Consult Reason/Comments: Post Interventional patient Do you want consulting provider notified?: Already Contacted Primary care physician: Wanda Ferreira [facility] Course: Patient was admitted for acute systolic dysfunction from possible acute myocardial infarction. Patient's creatinine remained stable patient is receiving IV Lasix which will be continued possibly of cardiac catheterization tomorrow. Patient is feeling much better today patient respiratory status improved significantly compared to yesterday. 02/23/2018 Patient has genitourinary bleeding because of which heparin was discontinued. Patient has ejection fraction of 40-45% underwent cardiac catheterization showed LAD occlusion will undergo stenting of proximal LAD today 02/24/2018 Patient had stenting of LAD patient is clinically doing well will be discharged today neurology evaluated the patient because of urinary retention patient was started on Flomax voiding trail today before discharge. Patient has EF of 40-45 % PHYSICAL EXAMINATION: GENERAL: The patient is alert and oriented x3, not in any acute distress. Well developed, well nourished. HEENT: Pupils are round and equally reacting to light. EOMI. No scleral icterus. No conjunctival pallor. Normocephalic, atraumatic. No pharyngeal erythema. No thyromegaly. CARDIOVASCULAR: S1 and S2 present. No murmurs, rubs, or gallops. PULMONARY: Chest is clear to auscultation, no wheezing or crackles. ABDOMEN: Soft, nontender, nondistended, normoactive bowel sounds. No palpable organomegaly. MUSCULOSKELETAL: No joint swelling or deformity. EXTREMITIES: No cyanosis, clubbing, or pedal edema. NEUROLOGICAL: Gross neurological examination did not reveal any focal deficits. SKIN: No rashes. pulmonary edema: Due to to acute systolic dysfunction with acute exacerbation. Patient is being discharged on lisinopril and Lasix . And has EF of 40-45% -possible non-ST elevation microinfarction leading to acute pulmonary edema: Patient has occlusion of LAD will undergo stenting of LAD today -Benign prostatic hypertrophy. -Acute respiratory failure secondary to congestive heart failure exacerbation. Plan - Discharge Summary Discharge Rx Participant: Yes New Discharge Prescriptions: New Aspirin 81 mg PO DAILY #30 chew Atorvastatin [Lipitor] 80 mg PO HS #30 tab Clopidogrel [Plavix] 75 mg PO DAILY #30 tab Furosemide [Lasix] 40 mg PO DAILY #30 tablet Lisinopril [Zestril] 5 mg PO DAILY #30 tab Nitroglycerin Sl Tabs [Nitrostat] 0.4 mg SUBLINGUAL Q5M PRN #30 tab PRN Reason: Chest Pain Tamsulosin [Flomax] 0.4 mg PO PC-SUPPER #30 cap.er.24h Continue Finasteride [Proscar] 1 tab PO DAILY Albuterol Inhaler [Ventolin Hfa Inhaler] 1 - 2 puff INHALATION RT-Q4H PRN PRN Reason: Shortness Of Breath Fluticasone/Umeclidin/Vilanter [Trelegy Ellipta 100-62.5-25] 1 puff INHALATION RT-DAILY Discontinued Levofloxacin [Levaquin] 500 mg PO DAILY Discharge Medication List Albuterol Inhaler [Ventolin Hfa Inhaler] 1 - 2 puff INHALATION RT-Q4H PRN [History] Finasteride [Proscar] 1 tab PO DAILY 02/21/18 [History] Fluticasone/Umeclidin/Vilanter [Trelegy Ellipta 100-62.5-25] 1 puff INHALATION RT-DAILY 02/21/18 [History] Aspirin 81 mg PO DAILY #30 chew 02/24/18 [Rx] Atorvastatin [Lipitor] 80 mg PO HS #30 tab 02/24/18 [Rx] Clopidogrel [Plavix] 75 mg PO DAILY #30 tab 02/24/18 [Rx] Furosemide [Lasix] 40 mg PO DAILY #30 tablet 02/24/18 [Rx] Lisinopril [Zestril] 5 mg PO DAILY #30 tab 02/24/18 [Rx] Nitroglycerin Sl Tabs [Nitrostat] 0.4 mg SUBLINGUAL Q5M PRN #30 tab 02/24/18 [Rx ] Tamsulosin [Flomax] 0.4 mg PO PC-SUPPER #30 cap.er.24h 02/24/18 [Rx] Follow up Appointment(s)/Referral(s): Trino Muñoz MD [Primary Care Provider] - 03/10/18 1:00 pm (Friday) Tera Alejo MD [STAFF PHYSICIAN] - 03/04/18 4:30 pm (friday) Ambulatory/Diagnostic Orders: Basic Metabolic Panel [LAB.AMB] Time Frame: 3 Days, Location: Determined By Patient Patient Instructions/Handouts: *Surgery [facility] - After Heart Catheterization - Sack Sewer Machine Instructions, Left Heart Catheterization (DC) Discharge Disposition: HOME SELF-CARE
--- NOTE | 2018-02-24 14:52 | P.PN ---
Subjective Progress Note Date: 02/24/18 This is a pleasant 77-year-old gentleman who presented with symptoms of dyspnea on mild elevation of troponin. He was also complaining of some chest discomfort. Underwent cardiac catheterization by Dr. Lancaster was found to have subtotally occluded mid LAD. He subsequently underwent successful stenting of the totally occluded mid LAD at the takeoff of the first septal body liner with reduction of stenosis from 90% to 0% by Dr. Hurtado. Patient did have some urinary retention and was seen by urology. He currently has a Hair catheter in place which is to be discontinued and if patient is unable to void he will currently be discharged with a catheter in place. From cardiac standpoint he's feeling well. Denies complaints of shortness of breath or chest discomfort. Objective - Vital Signs Vital signs: Vital Signs Temp 97.6 F 02/24/18 12:00 Pulse 65 02/24/18 12:00 Resp 16 02/24/18 12:00 BP 111/68 02/24/18 12:00 Pulse Ox 98 02/24/18 12:00 Intake & Output 02/23/18 02/24/18 02/24/18 18:59 06:59 18:59 Intake Total 930.84 402 Output Total 800 5400 600 Balance 130.84 -5400 -198 Weight 103.2 kg 101 kg Intake: IV 708.84 Sodium Chloride 0.9% 1, 572 000 ml In Empty Bag 1 bag @ 1 ML/KG/HR 103.2 mls/ hr IV .Q9H42M ONE Rx#: [id number] Oral 222 402 Output: Urine 800 5400 600 Uretheral (Hair) 600 Stool 0 0 Other: Voiding Method Indwelling Catheter Indwelling Catheter Indwelling Catheter # Voids 0 - Exam PHYSICAL EXAMINATION: HEENT: Head is atraumatic, normocephalic. Pupils equal, round. Neck is supple. There is no elevated jugular venous pressure. HEART EXAMINATION: Heart sounds regular, S1 and S2 normal. No murmur or gallop heard. CHEST EXAMINATION: Lungs are clear to auscultation and precussion. No chest wall tenderness is noted on palpation or with deep breathing. ABDOMEN: Soft, nontender. Bowel sounds are heard. No organomegaly noted. Hair catheter in place at the time of my exam. EXTREMITIES: 2+ peripheral pulses with no evidence of peripheral edema and no calf tenderness noted. NEUROLOGIC patient is awake, alert and oriented x3. . - Labs CBC & Chem 7: 02/24/18 06:08 02/24/18 06:08 Labs: Abnormal Lab Results - Last 24 Hours (Table) 02/24/18 02/24/18 Range/Units 06:08 06:08 Lymphocytes # 0.9 L (1.0-4.8) k/uL BUN 29 H (9-20) mg/dL Glucose 103 H (74-99) mg/dL Assessment and Plan Assessment: #1 acute on chronic systolic congestive heart failure #[address] elevation [place], status post stenting of the mid LAD 3 hypertension #4 history of PE Plan: From cardiology perspective, patient is stable for discharge home. Continue aspirin 81 mg by mouth daily, Lipitor 80 mg by mouth daily at bedtime, Plavix 75 mg by mouth daily and lisinopril 5 mg by mouth daily. Follow-up in the office with Dr. Alejo in about a week. The above dictated assessment and findings were discussed with signing physician. The impression and plan of care have been directed as dictated. Charo Trevizo, Nurse Practitioner, acting as scribe for signing physician.
== END 2018-02-24 17:02 | disposition home or self-care (01) | DRG 246 ==
LOC: EC 10:11 → 6SEL 12:59
PROVIDERS: ADMIT Internal Medicine; ATTEND Internal Medicine
PROC: 027035Z Dilation of Coronary Artery, One Artery with Two Drug-eluting Intraluminal Devices, Percutaneous Approach (ICD-10-PCS; principal; 2018-02-23 10:30)
PROC: B2111ZZ Fluoroscopy of Multiple Coronary Arteries using Low Osmolar Contrast (ICD-10-PCS; 2018-02-23 10:30)
PROC: 4A023N7 Measurement of Cardiac Sampling and Pressure, Left Heart, Percutaneous Approach (ICD-10-PCS; 2018-02-23 10:30)
DX: I21.4 Non-ST elevation (NSTEMI) myocardial infarction (principal); I50.23 Acute on chronic systolic (congestive) heart failure; N13.8 Other obstructive and reflux uropathy; R06.03 Acute respiratory distress; J43.9 Emphysema, unspecified; I11.0 Hypertensive heart disease with heart failure; J40 Bronchitis, not specified as acute or chronic; N40.1 Benign prostatic hyperplasia with lower urinary tract symptoms; I25.10 Atherosclerotic heart disease of native coronary artery without angina pectoris; Z86.711 Personal history of pulmonary embolism; Z90.49 Acquired absence of other specified parts of digestive tract; Z79.899 Other long term (current) drug therapy
CPT/HCPCS: 36415; 51702; 51798; 71046; 80048; 80053; 80061; 82550; 82553; 83735; 83880; 84484; 85025; 85610; 85730; 93005; 93306; 93458; 96374; 99291

== ENCOUNTER 2018-03-30 09:10 | Emergency (ER) | payer MEDICARE ==
--- NOTE | 2018-03-30 10:19 | ED ---
Male Urogenital HPI - General Chief complaint: Urogenital Stated complaint: Catheter needs to be removed Time Seen by Provider: 03/30/18 09:41 Source: patient, RN notes reviewed Mode of arrival: ambulatory Limitations: no limitations - History of Present Illness Initial comments: This a 77-year-old male presents emergency Department with chief complaint of needing Hair catheter removed. Patient states he had a placed on Friday in [place]. Patient states that he's had problem with urinary retention the past. He states he does take BPH medications. Patient states he feels well at this time is no complaints. Patient wants PCP who sent him here to have the Hair removed. - Related Data Home Medications Medication Instructions Recorded Confirmed Albuterol Inhaler [Ventolin Hfa 1 - 2 puff INHALATION RT-Q4H PRN 02/21/18 Inhaler] Finasteride [Proscar] 5 mg PO DAILY 02/21/18 03/30/18 Fluticasone/Umeclidin/Vilanter 1 puff INHALATION RT-DAILY 02/21/18 03/30/18 [Trelegy Ellipta 100-62.5-25] Previous Rx's Medication Instructions Recorded Aspirin 81 mg PO DAILY #30 chew 02/24/18 Atorvastatin [Lipitor] 80 mg PO HS #30 tab 02/24/18 Clopidogrel [Plavix] 75 mg PO DAILY #30 tab 02/24/18 Furosemide [Lasix] 40 mg PO DAILY #30 tablet 02/24/18 Lisinopril [Zestril] 5 mg PO DAILY #30 tab 02/24/18 Nitroglycerin Sl Tabs [Nitrostat] 0.4 mg SUBLINGUAL Q5M PRN #30 tab 02/24/18 Tamsulosin [Flomax] 0.4 mg PO PC-SUPPER #30 cap.er.24h 02/24/18 Allergies Allergy/AdvReac Type Severity Reaction Status Date / Time No Known Allergies Allergy Verified 03/30/18 10:57 Review of Systems ROS Statement: Those systems with pertinent positive or pertinent negative responses have been documented in the HPI. ROS Other: All systems not noted in ROS Statement are negative. Past Medical History Past Medical History: Prostate Disorder History of Any Multi-Drug Resistant Organisms: None Reported Past Surgical History: Appendectomy, Heart Catheterization Past Anesthesia/Blood Transfusion Reactions: No Reported Reaction Past Psychological History: No Psychological Hx Reported Smoking Status: Never smoker Past Alcohol Use History: Rare Past Drug Use History: None Reported General Exam Limitations: no limitations General appearance: alert, in no apparent distress Head exam: Present: atraumatic, normocephalic, normal inspection Eye exam: Present: normal appearance, PERRL, EOMI. Absent: scleral icterus, conjunctival injection, periorbital swelling ENT exam: Present: normal exam, normal oropharynx, mucous membranes moist Neck exam: Present: normal inspection, full ROM. Absent: tenderness, meningismus, lymphadenopathy Respiratory exam: Present: normal lung sounds bilaterally. Absent: respiratory distress, wheezes, rales, rhonchi, stridor Cardiovascular Exam: Present: regular rate, normal rhythm, normal heart sounds. Absent: systolic murmur, diastolic murmur, rubs, gallop, clicks GI/Abdominal exam: Present: soft, normal bowel sounds. Absent: distended, tenderness, guarding, rebound, rigid exam: Absent: normal inspection (Hair catheter in place) Back exam: Absent: CVA tenderness (R), CVA tenderness (L) Skin exam: Present: warm, dry, intact, normal color. Absent: rash Course Vital Signs 03/30/18 09:19 Temperature 96.7 F L Pulse Rate 57 L Respiratory 18 Rate Blood Pressure 122/85 O2 Sat by Pulse 98 Oximetry Medical Decision Making - Medical Decision Making 77-year-old male present to have his Hair catheter removed. Patient's Hair catheter is removed return parameters were discussed. No complications. Disposition Clinical Impression: Encounter for Hair catheter removal, Urinary retention Disposition: HOME SELF-CARE Condition: Stable Instructions: Urinary Retention in Men (ED) Additional Instructions: Please return to the Emergency Department if symptoms worsen or any other concerns. Is patient prescribed a controlled substance at d/c from ED?: No Referrals: Trino Muñoz MD [Primary Care Provider] - 1-2 days
[2018-03-30 11:22] VITALS: BP 134/56; PULSE 77; RESP 15; TEMP 98.3
== END 2018-03-30 11:20 | disposition home or self-care (01) ==
LOC: EC 09:10
DX: Z46.6 Encounter for fitting and adjustment of urinary device (principal); R33.9 Retention of urine, unspecified; N40.0 Benign prostatic hyperplasia without lower urinary tract symptoms; Z95.818 Presence of other cardiac implants and grafts; Z79.899 Other long term (current) drug therapy; Z79.51 Long term (current) use of inhaled steroids
CPT/HCPCS: 99283

== ENCOUNTER 2018-04-29 21:58 | Inpatient (IN) | payer MEDICARE ==
[2018-04-29] MEDS ORDERED: RX INFO: IV CONTRAST WAS GIVEN 1 EACH MISC MISCELLANE PRN (22:53)
[2018-04-29] MEDS ORDERED: SODIUM CHLORIDE 0.9% 500 ML IV STA (22:53)
[2018-04-29] MEDS ORDERED: MORPHINE SULFATE 2 MG/ML SYRINGE IV STA (22:53)
[2018-04-29] MEDS ORDERED: SODIUM CHLORIDE 0.9% 1,000 ML IV STA (22:53)
[2018-04-29] MEDS ORDERED: cefTRIAXone 2,000 MG in SODIUM CHLORIDE 0.9% 100 ML IVPB STA (22:57)
[2018-04-29] MEDS ORDERED: cefTRIAXone IN SWFI 2,000 MG/20 ML SYRINGE IVP ONE (23:15)
[2018-04-29 23:27] LABS: Appearance,Urine Cloudy (Clear); Bacteria,Urine Rare /hpf; Bilirubin,Urine Negative (Negative); Blood,Urine Large (Negative); Color,Urine Yellow; Glucose,Urine (UA) Negative (Negative); Ketones,Urine Trace (Negative); Leukocyte Esterase,Urine Large (Negative); Mucus,Urine Rare /hpf; Nitrite,Urine Positive (Negative); Protein,Urine 1+ (Negative); RBC,Urine 179 /hpf (0-5); Specific Gravity,Urine 1.014 (1.001-1.035); Urobilinogen,Urine <2.0 mg/dL (<2.0); WBC,Urine >182 /hpf (0-5)
[2018-04-29 23:49] LABS: Basophils % (A) 0 %; Eosinophils % (A) 0 %; HCT 32.7 % (39.0-53.0); HGB 10.9 gm/dL (13.0-17.5); Lymphocytes # (A) 0.4 k/uL (1.0-4.8); Lymphocytes % (A) 6 %; MCH 29.6 pg (25.0-35.0); MCHC 33.2 g/dL (31.0-37.0); MCV 89.1 fL (80.0-100.0); Mean Platelet Volume 7.5; Monocytes # (A) 0.5 k/uL (0-1.0); Monocytes % (A) 8 %; Neutrophils # (A) 5.5 k/uL (1.3-7.7); Neutrophils % (A) 85 %; Platelet Count 180 k/uL (150-450); RBC 3.67 m/uL (4.30-5.90); RDW 15.2 % (11.5-15.5); WBC 6.4 k/uL (3.8-10.6)
[2018-04-30] LABS: INR 1.4 (<1.2); Partial Thromboplastin Time 23.4 sec (22.0-30.0); Prothrombin Time 13.1 sec (9.0-12.0)
[2018-04-30 00:04] LABS: Albumin 3.9 g/dL (3.5-5.0); Calcium 9.5 mg/dL (8.4-10.2); Potassium 3.2 mmol/L (3.5-5.1); Total Bilirubin 1.5 mg/dL (0.2-1.3); Total Protein 6.5 g/dL (6.3-8.2)
[2018-04-30] MEDS ORDERED: POTASSIUM BICARBONATE/CIT AC 20 MEQ TABLET.EFF PO ONE (00:24)
--- NOTE | 2018-04-30 00:27 | ED ---
Male Urogenital HPI - General Chief complaint: Urogenital Stated complaint: trouble urinating Time Seen by Provider: 04/29/18 22:46 Source: patient Mode of arrival: ambulatory Limitations: no limitations - History of Present Illness Initial comments: 77 years old male presents with a fever chills or shakes in the lower abdominal pain, he has not been able to void well for the last year and a half he feels his bladder is distended he does have a history of firm urinary retention in the past he denies any bladder cancer he denies any radiation he denies any bladder tumor. Denies any headache no neck stiffness no chest pain or shortness of breath , eyes any sinus symptoms of TIA or CVA - Related Data Home Medications Medication Instructions Recorded Confirmed Albuterol Inhaler [Ventolin Hfa 1 - 2 puff INHALATION RT-Q4H PRN 02/21/18 Inhaler] Finasteride [Proscar] 5 mg PO DAILY 02/21/18 04/29/18 Fluticasone/Umeclidin/Vilanter 1 puff INHALATION RT-DAILY 02/21/18 04/29/18 [Trelegy Ellipta 100-62.5-25] Previous Rx's Medication Instructions Recorded Aspirin 81 mg PO DAILY #30 chew 02/24/18 Atorvastatin [Lipitor] 80 mg PO HS #30 tab 02/24/18 Clopidogrel [Plavix] 75 mg PO DAILY #30 tab 02/24/18 Furosemide [Lasix] 40 mg PO DAILY #30 tablet 02/24/18 Lisinopril [Zestril] 5 mg PO DAILY #30 tab 02/24/18 Nitroglycerin Sl Tabs [Nitrostat] 0.4 mg SUBLINGUAL Q5M PRN #30 tab 02/24/18 Tamsulosin [Flomax] 0.4 mg PO PC-SUPPER #30 cap.er.24h 02/24/18 Allergies Allergy/AdvReac Type Severity Reaction Status Date / Time No Known Allergies Allergy Verified 04/29/18 23:01 Review of Systems ROS Statement: Those systems with pertinent positive or pertinent negative responses have been documented in the HPI. ROS Other: All systems not noted in ROS Statement are negative. Past Medical History Past Medical History: Prostate Disorder History of Any Multi-Drug Resistant Organisms: None Reported Past Surgical History: Appendectomy, Heart Catheterization, Heart Catheterization With Stent Past Anesthesia/Blood Transfusion Reactions: No Reported Reaction Past Psychological History: No Psychological Hx Reported Smoking Status: Never smoker Past Alcohol Use History: None Reported, Rare Past Drug Use History: None Reported General Exam Limitations: no limitations Course Vital Signs 04/29/18 04/30/18 22:14 00:29 Temperature 101.5 F H 100.1 F H Pulse Rate 77 61 Respiratory 20 18 Rate Blood Pressure 204/92 153/70 O2 Sat by Pulse 96 97 Oximetry Noticed a troponin is elevated, though he had no chest pain he did complain about abdominal pain but is to be admitted regardless with the fever with a cystitis. Urosepsis Medical Decision Making - Lab Data Result diagrams: 04/29/18 23:20 04/29/18 23:20 Lab Results 04/29/18 04/29/18 04/29/18 Range/Units 23:11 23:20 23:20 WBC 6.4 (3.8-10.6) k/uL RBC 3.67 L (4.30-5.90) m/uL Hgb 10.9 L (13.0-17.5) gm/dL Hct 32.7 L (39.0-53.0) % MCV 89.1 (80.0-100.0) fL MCH 29.6 (25.0-35.0) pg MCHC 33.2 (31.0-37.0) g/dL RDW 15.2 (11.5-15.5) % Plt Count 180 (150-450) k/uL Neutrophils % 85 % Lymphocytes % 6 % Monocytes % 8 % Eosinophils % 0 % Basophils % 0 % Neutrophils # 5.5 (1.3-7.7) k/uL Lymphocytes # 0.4 L (1.0-4.8) k/uL Monocytes # 0.5 (0-1.0) k/uL Eosinophils # 0.0 (0-0.7) k/uL Basophils # 0.0 (0-0.2) k/uL PT (9.0-12.0) sec INR (<1.2) APTT (22.0-30.0) sec Sodium 149 H (137-145) mmol/L Potassium 3.2 L (3.5-5.1) mmol/L Chloride 112 H (98-107) mmol/L Carbon Dioxide 22 (22-30) mmol/L Anion Gap 15 mmol/L BUN 31 H (9-20) mg/dL Creatinine 1.30 H (0.66-1.25) mg/dL Est GFR (CKD-EPI)AfAm 61 (>60 ml/min/1.73 sqM) Est GFR (CKD-EPI)NonAf 53 (>60 ml/min/1.73 sqM) Glucose 133 H (74-99) mg/dL Plasma Lactic Acid Jensen (0.7-2.0) mmol/L Calcium 9.5 (8.4-10.2) mg/dL Total Bilirubin 1.5 H (0.2-1.3) mg/dL AST 47 (17-59) U/L ALT 50 (21-72) U/L Alkaline Phosphatase 58 (38-126) U/L Troponin I (0.000-0.034) ng/mL Total Protein 6.5 (6.3-8.2) g/dL Albumin 3.9 (3.5-5.0) g/dL Urine Color Yellow Urine Appearance Cloudy (Clear) Urine pH 7.0 (5.0-8.0) Ur Specific [place] 1.014 (1.001-1.035) Urine Protein 1+ H (Negative) Urine Glucose (UA) Negative (Negative) Urine Ketones Trace H (Negative) Urine Blood Large H (Negative) Urine Nitrite Positive (Negative) Urine Bilirubin Negative (Negative) Urine Urobilinogen <2.0 (<2.0) mg/dL Ur Leukocyte Esterase Large H (Negative) Urine RBC 179 H (0-5) /hpf Urine WBC >182 H (0-5) /hpf Urine Bacteria Rare H (None) /hpf Urine Mucus Rare H (None) /hpf 04/29/18 04/29/18 04/29/18 Range/Units 23:20 23:20 23:20 WBC (3.8-10.6) k/uL RBC (4.30-5.90) m/uL Hgb (13.0-17.5) gm/dL Hct (39.0-53.0) % MCV (80.0-100.0) fL MCH (25.0-35.0) pg MCHC (31.0-37.0) g/dL RDW (11.5-15.5) % Plt Count (150-450) k/uL Neutrophils % % Lymphocytes % % Monocytes % % Eosinophils % % Basophils % % Neutrophils # (1.3-7.7) k/uL Lymphocytes # (1.0-4.8) k/uL Monocytes # (0-1.0) k/uL Eosinophils # (0-0.7) k/uL Basophils # (0-0.2) k/uL PT 13.1 H (9.0-12.0) sec INR 1.4 H (<1.2) APTT 23.4 (22.0-30.0) sec Sodium (137-145) mmol/L Potassium (3.5-5.1) mmol/L Chloride (98-107) mmol/L Carbon Dioxide (22-30) mmol/L Anion Gap mmol/L BUN (9-20) mg/dL Creatinine (0.66-1.25) mg/dL Est GFR (CKD-EPI)AfAm (>60 ml/min/1.73 sqM) Est GFR (CKD-EPI)NonAf (>60 ml/min/1.73 sqM) Glucose (74-99) mg/dL Plasma Lactic Acid Jensen 1.0 (0.7-2.0) mmol/L Calcium (8.4-10.2) mg/dL Total Bilirubin (0.2-1.3) mg/dL AST (17-59) U/L ALT (21-72) U/L Alkaline Phosphatase (38-126) U/L Troponin I 0.130 H* (0.000-0.034) ng/mL Total Protein (6.3-8.2) g/dL Albumin (3.5-5.0) g/dL Urine Color Urine Appearance (Clear) Urine pH (5.0-8.0) Ur Specific [place] (1.001-1.035) Urine Protein (Negative) Urine Glucose (UA) (Negative) Urine Ketones (Negative) Urine Blood (Negative) Urine Nitrite (Negative) Urine Bilirubin (Negative) Urine Urobilinogen (<2.0) mg/dL Ur Leukocyte Esterase (Negative) Urine RBC (0-5) /hpf Urine WBC (0-5) /hpf Urine Bacteria (None) /hpf Urine Mucus (None) /hpf Disposition Clinical Impression: Fever, Urine retention, Hypertension, Troponin level elevated Disposition: ADMITTED IP TO THIS HOSP Condition: Good Referrals: Trino Muñoz MD [Primary Care Provider] - 1-2 days
[2018-04-30] MEDS: SODIUM CHLORIDE 0.9% 500 ML IV SCH ×3 (00:31→06:09)
[2018-04-30] MEDS ORDERED: MORPHINE SULFATE 2 MG/ML SYRINGE IVP PRN (00:57)
[2018-04-30] MEDS ORDERED: NITROGLYCERIN SL TABS 0.4 MG TAB SUBLINGUAL PRN ×2 (00:57→11:58)
[2018-04-30] MEDS ORDERED: ALBUTEROL NEBULIZED 2.5 MG/3 ML INHALATION PRN (01:01)
[2018-04-30 06:04] VITALS: BMI 29.3
[2018-04-30] MEDS ORDERED: ACETAMINOPHEN TAB 325 MG TAB PO PRN (06:23)
[2018-04-30] MEDS ORDERED: ONDANSETRON 4 MG/2 ML VIAL IVP PRN (06:24)
--- NOTE | 2018-04-30 06:25 | CT ---
EXAM: CT Abdomen and Pelvis With Intravenous Contrast CLINICAL HISTORY: Lower abd pain, catheter problems. TECHNIQUE: Axial computed tomography images of the abdomen and pelvis with intravenous contrast. Coronal and sagittal reformatted images were created and reviewed. CTDI is 15.15, 15.50 mGy and DLP is 1255.30 mGy-cm. This CT exam was performed using one or more of the following dose reduction techniques: automated exposure control, adjustment of the mA and/or kV according to patient size, and/or use of iterative reconstruction technique. CONTRAST: 30 mL of Isovue 300 administered intravenously. COMPARISON: No prior imaging available for comparison. FINDINGS: Visualized lower chest: No mass. No consolidation. Mild cardiomegaly. ABDOMEN: Liver: Multiple hypodense liver lesions, largest measuring 6.7 cm. Gallbladder and bile ducts: No radiopaque calculi. No biliary ductal dilation. Pancreas: Unremarkable. No ductal dilation. No mass. No adjacent inflammatory changes. Spleen: Unremarkable. No splenomegaly. Adrenals: Unremarkable. No mass. Kidneys and ureters: Right renal cyst. Mild nonspecific perinephric stranding. No hydronephrosis or ureteral calculus. Mild right periureteral stranding. Stomach and bowel: Colonic diverticula without evidence of acute diverticulitis. No evidence of bowel obstruction. No evidence of significant bowel wall thickening. PELVIS: Appendix: No findings to suggest acute appendicitis. Bladder: Hair catheter is present within the bladder. Bladder is decompressed with thickened wall and adjacent stranding. Coarse calcifications/calculi are present in the posterior aspect of the bladder surrounding Hair balloon. Reproductive: Marked prostatomegaly. ABDOMEN and PELVIS: Intraperitoneal space: No free air. No significant fluid collection. Bones/joints: Osseous degenerative changes. No acute fracture. No dislocation. Soft tissues: Unremarkable. Vasculature: Scattered atherosclerosis. No abdominal aortic aneurysm. Lymph nodes: Unremarkable. No enlarged lymph nodes. IMPRESSION: 1. Hair catheter within decompressed, thick-walled bladder with mild adjacent stranding. Coarse calcifications/calculi are present in the posterior aspect of the bladder surrounding Hair balloon. Correlate with urinalysis to exclude cystitis. 2. Marked prostatomegaly. 3. Colonic diverticula without evidence of acute diverticulitis. 4. Multiple hypodense liver lesions, largest measuring 6.7 cm. These may represent hepatic cysts although other etiologies are not excluded. 5. Nonspecific perinephric stranding and mild right periureteral stranding. No hydronephrosis or ureteral calculus. Recommend clinical correlation and correlation with urinalysis to exclude ascending infection on the right.
[2018-04-30 06:54] LABS: HCT 30.7 % (39.0-53.0); MCH 29.3 pg (25.0-35.0); MCHC 32.7 g/dL (31.0-37.0); MCV 89.8 fL (80.0-100.0); Mean Platelet Volume 7.8; Platelet Count 167 k/uL (150-450); RBC 3.42 m/uL (4.30-5.90); RDW 15.4 % (11.5-15.5); WBC 5.5 k/uL (3.8-10.6)
[2018-04-30 07:17] LABS: Anion Gap 10 mmol/L; Blood Urea Nitrogen 25 mg/dL (9-20); Calcium 8.7 mg/dL (8.4-10.2); Carbon Dioxide 26 mmol/L (22-30); Chloride 111 mmol/L (98-107); Glucose 119 mg/dL (74-99); Potassium 3.6 mmol/L (3.5-5.1); Sodium 147 mmol/L (137-145)
[2018-04-30 07:44] LABS: Troponin I 0.192 ng/mL (0.000-0.034)
[2018-04-30] MEDS ORDERED: NON-FORMULARY DRUG (Fluticasone/Umeclidin/Vilanter [Trelegy Ellipta 100-62.5-25] 1 PUFF) INHALATION SCH (08:00)
[2018-04-30] MEDS: FINASTERIDE 5 MG TAB PO SCH (08:11)
[2018-04-30] MEDS: FUROSEMIDE 40 MG TAB PO SCH (08:11)
[2018-04-30] MEDS: LISINOPRIL 5 MG TAB PO SCH (08:11)
[2018-04-30] MEDS: CLOPIDOGREL 75 MG TAB PO SCH (08:11)
--- NOTE | 2018-04-30 09:02 | P.CRDCN ---
History of Present Illness Consult date: 04/30/18 Requesting physician: Melissa Dubon Consult reason: chest pain Chief complaint: Inability to urinate, abdominal pain, chest discomfort History of present illness: Is a pleasant 77-year-old gentleman who follows regularly with Dr. Alejo in the office. He has a known history of coronary artery disease and most recently was in the hospital in January of this year at which time he underwent successful stenting of the totally occluded mid LAD by Dr. Hurtado. Cardiac catheterization at that time also showed mild nonobstructive disease in the right coronary artery. Patient does have chronic issues with his prostate for which she follows at [facility], he has to self catheterize himself frequently. Since Friday, patient has had an incredibly difficult time urinating, has had to straight cath himself with not much urine residual. He presents to the hospital on this occasion with symptoms of lower abdominal discomfort with inability to urinate, patient also has been experiencing chest pressure and heaviness. Cardiology consultation was requested because of symptoms of chest heaviness, pressure, and shortness of breath. A CAT scan of the abdomen and pelvis was performed on admission here which revealed marked prostate or megaly, multiple hypodense liver lesions largest measuring 6.7, these may represent hepatic cysts. No hydronephrosis or ureteral calculus noted. EKG on presentation here showed a normal sinus rhythm with incomplete right bundle branch block pattern, nonspecific ST-T wave changes. Subsequent EKG performed this morning showed normal sinus rhythm with nonspecific ST-T wave changes in the anterior lateral leads. No chest x-ray was performed. Blood pressure on arrival here 204/92, temperature 101.5. Blood pressure this morning 158/80 with a heart rate in the 50s, afebrile this morning. White blood cell count is normal, hemoglobin 10.0, platelet count 167. The patient's hemoglobin in January when he was discharge was 13.4. Sodium 147, potassium 3.6, it was 3.2 on admission, BUN 25, creatinine 0.9. BUN on admission 31 and creatinine 1.3. Troponins 0.13, 0.19. Urine shows large amount leukocyte Estrace. Patient was initiated on IV antibiotics on admission here, no heparin was initiated. He is currently on aspirin 325 mg daily, Lipitor 80 mg daily, Plavix 75 mg daily, Lasix 40 mg daily, lisinopril 5 mg daily, Flomax 0.4 mg daily. Patient is not on a beta brendan at this time, likely secondary to bradycardia. At the time of my examination this morning, patient does complain of mild chest pressure, he states it comes and goes, much worse with exertion, subsides with rest. Past Medical History Past Medical History: Heart Failure, Deep Vein Thrombosis (DVT), Pneumonia, Prostate Disorder, Pulmonary Embolus (PE) History of Any Multi-Drug Resistant Organisms: None Reported Past Surgical History: Appendectomy, Heart Catheterization, Heart Catheterization With Stent Past Anesthesia/Blood Transfusion Reactions: No Reported Reaction Date of Last Stent Placement:: January 2018 Past Psychological History: No Psychological Hx Reported Smoking Status: Never smoker Past Alcohol Use History: None Reported, Rare Past Drug Use History: None Reported Medications and Allergies Home Medications Medication Instructions Recorded Confirmed Type Albuterol Inhaler [Ventolin Hfa 1 - 2 puff INHALATION RT-Q4H PRN 02/21/18 History Inhaler] Finasteride [Proscar] 5 mg PO DAILY 02/21/18 04/29/18 History Fluticasone/Umeclidin/Vilanter 1 puff INHALATION RT-DAILY 02/21/18 04/29/18 History [Trelegy Ellipta 100-62.5-25] Aspirin 81 mg PO DAILY #30 chew 02/24/18 04/29/18 Rx Atorvastatin [Lipitor] 80 mg PO HS #30 tab 02/24/18 04/29/18 Rx Clopidogrel [Plavix] 75 mg PO DAILY #30 tab 02/24/18 04/29/18 Rx Furosemide [Lasix] 40 mg PO DAILY #30 tablet 02/24/18 04/29/18 Rx Lisinopril [Zestril] 5 mg PO DAILY #30 tab 02/24/18 04/29/18 Rx Nitroglycerin Sl Tabs [Nitrostat] 0.4 mg SUBLINGUAL Q5M PRN #30 tab 02/24/18 Rx Tamsulosin [Flomax] 0.4 mg PO PC-SUPPER #30 cap.er.24h 02/24/18 04/29/18 Rx Allergies Allergy/AdvReac Type Severity Reaction Status Date / Time No Known Allergies Allergy Verified 04/29/18 23:01 Physical Exam Vitals: Vital Signs Temp Pulse Pulse Resp BP BP Pulse Ox 04/30/18 05:49 56 L 20 159/80 96 04/30/18 00:29 100.1 F H 61 18 153/70 97 04/29/18 22:14 101.5 F H 77 20 204/92 96 Intake and Output 04/29/18 04/30/18 04/30/18 22:59 06:59 14:59 Output Total 400 Balance -400 Output: Urine 400 Other: Weight 92.986 kg 99.4 kg PHYSICAL EXAMINATION: GENERAL: This is a 77-year-old gentleman, complaining of mild chest pressure at the time of my examination. No abdominal discomfort. HEENT: Head is atraumatic, normocephalic. Pupils equal, round. Sclera anicteric. Conjunctiva are clear. Mucous membranes of the mouth are moist. Neck is supple. There is no elevated jugular venous pressure.] bruit is heard. HEART EXAMINATION: Heart S1, S2 normal. No murmur or gallop heard. CHEST EXAMINATION: Lungs reveal mild diminished air entry to the bases. ABDOMEN: Soft, nontender. Bowel sounds are heard. No organomegaly noted. EXTREMITIES: 2+ peripheral pulses with trace evidence of peripheral edema and no calf tenderness noted. NEUROLOGIC patient is awake, alert and oriented -3. . Results 04/30/18 06:34 04/30/18 06:34 Cardiac Enzymes 04/29/18 04/29/18 04/30/18 Range/Units 23:20 23:20 06:34 AST 47 (17-59) U/L CK-MB (CK-2) 4.0 H* (0.0-2.4) ng/mL Troponin I 0.130 H* 0.192 H* (0.000-0.034) ng/mL Coagulation 04/29/18 Range/Units 23:20 PT 13.1 H (9.0-12.0) sec APTT 23.4 (22.0-30.0) sec CBC 04/29/18 04/30/18 Range/Units 23:20 06:34 WBC 6.4 5.5 (3.8-10.6) k/uL RBC 3.67 L 3.42 L (4.30-5.90) m/uL Hgb 10.9 L 10.0 L (13.0-17.5) gm/dL Hct 32.7 L 30.7 L (39.0-53.0) % Plt Count 180 167 (150-450) k/uL Comprehensive Metabolic Panel 04/29/18 04/30/18 Range/Units 23:20 06:34 Sodium 149 H 147 H (137-145) mmol/L Potassium 3.2 L 3.6 (3.5-5.1) mmol/L Chloride 112 H 111 H (98-107) mmol/L Carbon Dioxide 22 26 (22-30) mmol/L BUN 31 H 25 H (9-20) mg/dL Creatinine 1.30 H 0.93 (0.66-1.25) mg/dL Glucose 133 H 119 H (74-99) mg/dL Calcium 9.5 8.7 (8.4-10.2) mg/dL AST 47 (17-59) U/L ALT 50 (21-72) U/L Alkaline Phosphatase 58 (38-126) U/L Total Protein 6.5 (6.3-8.2) g/dL Albumin 3.9 (3.5-5.0) g/dL Current Medications Generic Name Dose Route Start Last Admin Trade Name Freq PRN Reason Stop Dose Admin Acetaminophen 650 mg 04/30/18 06:23 Tylenol Tab PO Q6HR PRN Fever and/ or Pain Albuterol Sulfate 2.5 mg 04/30/18 01:01 Ventolin Nebulized INHALATION RT-Q4H PRN Shortness Of Breath Aspirin 325 mg 05/01/18 09:00 Aspirin PO DAILY MARTÍN Atorvastatin Calcium 80 mg 04/30/18 21:00 Lipitor PO HS MARTÍN Clopidogrel Bisulfate 75 mg 04/30/18 09:00 04/30/18 08:11 Plavix PO 75 mg DAILY MARTÍN Administration Finasteride 5 mg 04/30/18 09:00 04/30/18 08:11 Proscar PO 5 mg DAILY MARTÍN Administration Furosemide 40 mg 04/30/18 09:00 04/30/18 08:11 Lasix PO 40 mg DAILY MARTÍN Administration Sodium Chloride 1,000 mls @ 100 mls/hr 04/29/18 22:53 04/30/18 06:08 Saline 0.9% IV 04/30/18 08:52 Not Given .Q10H STA Lisinopril 5 mg 04/30/18 09:00 04/30/18 08:11 Zestril PO 5 mg DAILY MARTÍN Administration Miscellaneous Information 1 each 04/29/18 22:53 Rx Info: Iv Contrast Was Given MISCELLANE 05/01/18 22:56 DAILY PRN Per Protocol Morphine Sulfate 2 mg 04/30/18 00:57 Morphine Sulfate (Inj) IVP Q5M PRN Chest Pain Nitroglycerin 0.4 mg 04/30/18 00:57 Nitrostat SUBLINGUAL Q5M PRN Chest Pain Non-Formulary Medication 1 puff 04/30/18 08:00 Fluticasone/Umeclidin/Vilanter [Trelegy Ellipta 100-62.5-25] INHALATION RT-DAILY MARTÍN Ondansetron HCl 4 mg 04/30/18 06:24 Zofran IVP Q24HR PRN Nausea And Vomiting Tamsulosin HCl 0.4 mg 04/30/18 18:30 Flomax PO PC-SUPPER MARTÍN Intake and Output 04/29/18 04/30/18 04/30/18 22:59 06:59 14:59 Output Total 400 Balance -400 Output: Urine 400 Other: Weight 92.986 kg 99.4 kg 04/30/18 06:34 04/30/18 06:34 EKG Interpretations (text) EKG shows normal sinus rhythm with ST-T wave changes noted in the anterior lateral leads. Assessment and Plan Plan: Assessment and plan #1 symptoms of chest pressure and heaviness, mostly exertional in nature, however occurring at rest as well. Troponins 0.13, 0.19. EKG shows normal sinus rhythm with anterior lateral ST-T wave changes, clinical picture suggesting acute coronary syndrome. Patient has known history of coronary artery disease with recent LAD stenting in January of this year #2 history of enlarged prostate #3 inability to urinate with associated abdominal pain, Hair catheter in place at this time. Febrile on admission, 101 temperature. Afebrile this morning, positive UTI, on antibiotics #4 anemia # 5 hyperlipidemia #6 hypokalemia, replaced #7 accelerated hypertension Plan We will repeat an echocardiogram with Doppler study. We will also initiate IV heparin and obtain a chest x-ray. Decrease aspirin 81 mg daily, continue Plavix , lisinopril, and Lipitor. Patient not currently on beta brendan secondary to bradycardia Patient does currently have an active urinary tract infection is being treated, he may require repeat cardiac catheterization. Further recommendations to follow. DNP note has been reviewed, I agree with a documented findings and plan of care. Patient was seen and examined.
[2018-04-30] MEDS ORDERED: HEPARIN SODIUM,PORCINE 5,000 UNIT/ML 1 ML VIAL IV PRN ×2 (09:06→17:20)
[2018-04-30] MEDS ORDERED: HEPARIN SODIUM,PORCINE/D5W PMX 25,000 UNIT in DEXTROSE/WATER 1 500ML.BAG IV SCH (09:30)
--- NOTE | 2018-04-30 09:31 | XR ---
EXAMINATION TYPE: XR chest 2V DATE OF EXAM: 04/30/2018 COMPARISON: Prior chest x-ray 02/21/[address] scan 04/30/2018 HISTORY: Chest pain TECHNIQUE: Frontal and lateral views of the chest are obtained. FINDINGS: The heart is enlarged. There is no pneumothorax or pleural effusion. Interstitium is incre ased. Prominence of the pulmonary artery could be indicative of pulmonary artery hypertension. Increa sed AP diameter chest could be indicative of COPD. Aorta is dense. Patient is rotated and there are o verlying cardiac leads. IMPRESSION: Cardiomegaly. There may be component of interstitial lung disease. Additional findings a mona.
[2018-04-30] MEDS: ASPIRIN 81 MG PO SCH (10:49)
[2018-04-30] MEDS ORDERED: SODIUM CHLORIDE 0.9% 1,000 ML in EMPTY BAG 1 BAG IV ONE (11:58)
[2018-04-30] MEDS ORDERED: ASPIRIN 325 MG TAB PO STA (11:58)
[2018-04-30] MEDS ORDERED: ATORVASTATIN 80 MG TAB PO STA (11:58)
[2018-04-30] MEDS ORDERED: ALPRAZolam 0.25 MG TAB PO PRN (11:58)
[2018-04-30] MEDS ORDERED: ALPRAZolam 0.5 MG TAB PO PRN (11:58)
[2018-04-30 13:14] LABS: Creatine Kinase MB 5.3 ng/mL (0.0-2.4)
[2018-04-30 13:15] LABS: Troponin I 0.168 ng/mL (0.000-0.034)
--- NOTE | 2018-04-30 13:20 | P.HPIM ---
History of Present Illness 77-year-old that came in with a high-grade fever last night fever chills patient does straight catheterize himself denied any chest pain cough runny nose chest x-ray did not show any significant abnormality urine is significant abnormal no previous cultures are available patient was started on Rocephin. Patient was also complaining of pressure-like chest pain which started yesterday on and off exertional, which is heaviness 5/in severity nonradiating substernal Association shortness of breath. CAT scan of the abdomen was obtained which showed hepatic cysts prostatomegaly. Patient follows up with the urology outside of the town. Patient is found to have minimally elevated troponins of 0.13 and 0.19. EKG did not show any significant ST-T wave changes. Review of Systems REVIEW OF SYSTEMS: CONSTITUTIONAL: no malaise, no fatigue. HEENT: No recent visual problems or hearing problems. Denied any sore throat. CARDIOVASCULAR: No orthopnea, PND, no palpitations, no syncope. PULMONARY: No shortness of breath, no cough, no hemoptysis. GASTROINTESTINAL: No diarrhea, no nausea, no vomiting, no abdominal pain. Normoactive bowel sounds. NEUROLOGICAL: No headaches, no weakness, no numbness. HEMATOLOGICAL: Denies any bleeding or petechiae. GENITOURINARY: Denies any burning micturition, frequency, or urgency. MUSCULOSKELETAL/RHEUMATOLOGICAL: Denies any joint pain, swelling, or any muscle pain. ENDOCRINE: Denies any polyuria or polydipsia. The rest of the 14-point review of systems is negative. Past Medical History Past Medical History: Heart Failure, Deep Vein Thrombosis (DVT), Pneumonia, Prostate Disorder, Pulmonary Embolus (PE) History of Any Multi-Drug Resistant Organisms: None Reported Past Surgical History: Appendectomy, Heart Catheterization, Heart Catheterization With Stent Past Anesthesia/Blood Transfusion Reactions: No Reported Reaction Date of Last Stent Placement:: January 2018 Past Psychological History: No Psychological Hx Reported Smoking Status: Never smoker Past Alcohol Use History: None Reported, Rare Past Drug Use History: None Reported Medications and Allergies Home Medications Medication Instructions Recorded Confirmed Type Albuterol Inhaler [Ventolin Hfa 1 - 2 puff INHALATION RT-Q4H PRN 02/21/18 History Inhaler] Finasteride [Proscar] 5 mg PO DAILY 02/21/18 04/29/18 History Fluticasone/Umeclidin/Vilanter 1 puff INHALATION RT-DAILY 02/21/18 04/29/18 History [Janki Milner 100-62.5-25] Aspirin 81 mg PO DAILY #30 chew 02/24/18 04/29/18 Rx Atorvastatin [Lipitor] 80 mg PO HS #30 tab 02/24/18 04/29/18 Rx Clopidogrel [Plavix] 75 mg PO DAILY #30 tab 02/24/18 04/29/18 Rx Furosemide [Lasix] 40 mg PO DAILY #30 tablet 02/24/18 04/29/18 Rx Lisinopril [Zestril] 5 mg PO DAILY #30 tab 02/24/18 04/29/18 Rx Nitroglycerin Sl Tabs [Nitrostat] 0.4 mg SUBLINGUAL Q5M PRN #30 tab 02/24/18 Rx Tamsulosin [Flomax] 0.4 mg PO PC-SUPPER #30 cap.er.24h 02/24/18 04/29/18 Rx Allergies Allergy/AdvReac Type Severity Reaction Status Date / Time No Known Allergies Allergy Verified 04/29/18 23:01 Physical Exam Vitals: Vital Signs Temp Pulse Pulse Resp BP BP Pulse Ox 04/30/18 12:00 97.4 F L 52 L 18 168/78 99 04/30/18 11:56 52 L 04/30/18 08:39 95 04/30/18 08:00 97.9 F 51 L 18 145/63 100 04/30/18 05:49 56 L 20 159/80 96 04/30/18 00:29 100.1 F H 61 18 153/70 97 04/29/18 22:14 101.5 F H 77 20 204/92 96 Intake and Output 04/29/18 04/30/18 04/30/18 22:59 06:59 14:59 Intake Total 480 Output Total 400 Balance -400 480 Intake: Oral 480 Output: Urine 400 Other: Weight 92.986 kg 99.4 kg PHYSICAL EXAMINATION: GENERAL: The patient is alert and oriented x3, not in any acute distress. Well developed, well nourished. HEENT: Pupils are round and equally reacting to light. EOMI. No scleral icterus. No conjunctival pallor. Normocephalic, atraumatic. No pharyngeal erythema. No thyromegaly. CARDIOVASCULAR: S1 and S2 present. No murmurs, rubs, or gallops. PULMONARY: Chest is clear to auscultation, no wheezing or crackles. ABDOMEN: Soft, nontender, nondistended, normoactive bowel sounds. No palpable organomegaly. MUSCULOSKELETAL: No joint swelling or deformity. EXTREMITIES: No cyanosis, clubbing, or pedal edema. Patient has a Hair catheter in place which will be continued NEUROLOGICAL: Gross neurological examination did not reveal any focal deficits. SKIN: No rashes. Results CBC & Chem 7: 04/30/18 06:34 04/30/18 06:34 Labs: Abnormal Lab Results - Last 24 Hours (Table) 04/29/18 04/29/18 04/29/18 Range/Units 23:11 23:20 23:20 RBC 3.67 L (4.30-5.90) m/uL Hgb 10.9 L (13.0-17.5) gm/dL Hct 32.7 L (39.0-53.0) % Lymphocytes # 0.4 L (1.0-4.8) k/uL PT (9.0-12.0) sec INR (<1.2) Sodium 149 H (137-145) mmol/L Potassium 3.2 L (3.5-5.1) mmol/L Chloride 112 H (98-107) mmol/L BUN 31 H (9-20) mg/dL Creatinine 1.30 H (0.66-1.25) mg/dL Glucose 133 H (74-99) mg/dL Total Bilirubin 1.5 H (0.2-1.3) mg/dL Total Creatine Kinase (55-170) U/L CK-MB (CK-2) (0.0-2.4) ng/mL Troponin I (0.000-0.034) ng/mL Urine Protein 1+ H (Negative) Urine Ketones Trace H (Negative) Urine Blood Large H (Negative) Ur Leukocyte Esterase Large H (Negative) Urine RBC 179 H (0-5) /hpf Urine WBC >182 H (0-5) /hpf Urine Bacteria Rare H (None) /hpf Urine Mucus Rare H (None) /hpf 04/29/18 04/29/1818 Range/Units 23:20 23:20 06:34 RBC (4.30-5.90) m/uL Hgb (13.0-17.5) gm/dL Hct (39.0-53.0) % Lymphocytes # (1.0-4.8) k/uL PT 13.1 H (9.0-12.0) sec INR 1.4 H (<1.2) Sodium (137-145) mmol/L Potassium (3.5-5.1) mmol/L Chloride (98-107) mmol/L BUN (9-20) mg/dL Creatinine (0.66-1.25) mg/dL Glucose (74-99) mg/dL Total Bilirubin (0.2-1.3) mg/dL Total Creatine Kinase 585 H (55-170) U/L CK-MB (CK-2) 4.0 H* (0.0-2.4) ng/mL Troponin I 0.130 H* 0.192 H* (0.000-0.034) ng/mL Urine Protein (Negative) Urine Ketones (Negative) Urine Blood (Negative) Ur Leukocyte Esterase (Negative) Urine RBC (0-5) /hpf Urine WBC (0-5) /hpf Urine Bacteria (None) /hpf Urine Mucus (None) /hpf 04/30/18 04/30/18 Range/Units 06:34 06:34 RBC 3.42 L (4.30-5.90) m/uL Hgb 10.0 L (13.0-17.5) gm/dL Hct 30.7 L (39.0-53.0) % Lymphocytes # (1.0-4.8) k/uL PT (9.0-12.0) sec INR (<1.2) Sodium 147 H (137-145) mmol/L Potassium (3.5-5.1) mmol/L Chloride 111 H (98-107) mmol/L BUN 25 H (9-20) mg/dL Creatinine (0.66-1.25) mg/dL Glucose 119 H (74-99) mg/dL Total Bilirubin (0.2-1.3) mg/dL Total Creatine Kinase (55-170) U/L CK-MB (CK-2) (0.0-2.4) ng/mL Troponin I (0.000-0.034) ng/mL Urine Protein (Negative) Urine Ketones (Negative) Urine Blood (Negative) Ur Leukocyte Esterase (Negative) Urine RBC (0-5) /hpf Urine WBC (0-5) /hpf Urine Bacteria (None) /hpf Urine Mucus (None) /hpf Microbiology - Last 24 Hours (Table) 04/30/18 06:30 Urine Culture - Preliminary Urine,Catheterized Thrombosis Risk Factor Assmnt - Choose All That Apply Each Factor Represents 1 point: Medical pt on bed rest, Obesity (BMI >25), Sepsis (< 1month) Other Risk Factors: Yes Each Risk Factor Represents 3 Points: Age 75 years or older, History of DVT/PE Other congenital or acquired thrombophilia - If yes, enter type in comment: No Thrombosis Risk Factor Assessment Total Risk Factor Score: 9 Thrombosis Risk Factor Assessment Level: High Risk Assessment and Plan Plan: -Possible sepsis secondary to urinary tract infection patient does do straight catheterization at home patient does have benign prostatic hypertrophic Rocephin will be continued awaiting urine cultures. -Possibility of non-ST elevation microinfarction: Elevated troponins can be from sepsis considering his symptoms cardiology was consulted and further management depending on their evaluation. Patient had stenting to LAD in the past -Benign prostatic hypertrophy -Hyperlipidemia -Hypertension -Congestive heart failure chronic systolic dysfunction without any acute exacerbation patient is fairly euvolemic IV fluids were discontinued and patient is on oral Lasix which will be continued.
[2018-04-30] MEDS: TAMSULOSIN 0.4 MG CAP.ER.24H PO SCH (17:33)
--- NOTE | 2018-04-30 19:47 | ECHOF ---
Referral Reason:chest pain MEASUREMENTS -------- HEIGHT: 177.8 cm WEIGHT: 99.3 kg BP: 159/80 RVIDd: 3.9 cm (< 3.3) IVSd: 1.6 cm (0.6 - 1.1) LVIDd: 5.1 cm (3.9 - 5.3) LVPWd: 1.5 cm (0.6 - 1.1) IVSs: 2.1 cm LVIDs: 3.6 cm LVPWs: 1.9 cm LA Diam: 4.1 cm (2.7 - 3.8) LAESV Index (A-L): 48.65 ml/m Ao Diam: 4.1 cm (2.0 - 3.7) AV Cusp: 2.2 cm (1.5 - 2.6) MV EXCURSION: 15.488 mm (> 18.000) MV EF SLOPE: 16 mm/s (70 - 150) EPSS: 1.4 cm MV E Pool: 0.76 m/s MV DecT: 465 ms MV A Pool: 0.44 m/s MV E/A Ratio: 1.71 AR PHT: 630 ms RAP: 15.00 mmHg RVSP: 47.62 mmHg FINDINGS -------- Sinus rhythm. This was a technically good study. The left ventricular size is normal. There is moderate concentric left ventricular hypertrophy. O verall left ventricular systolic function is normal with, an EF between 55 - 60 %. The right ventricle is moderately enlarged. LA is severely dilated >40 ml/m2 The right atrium is normal in size. Aortic valve is trileaflet and is mildly thickened. There is mild aortic regurgitation. The mitral valve leaflets are mildly thickened. Mild mitral regurgitation is present. Mild tricuspid regurgitation present. There is moderate pulmonary hypertension. The right ventric ular systolic pressure, as measured by Doppler, is 47.62mmHg. Trace/mild (physiologic) pulmonic regurgitation. The aortic root is dilated measuring 4.1cm. The inferior vena cava is dilated with poor inspiratory collapse which is consistent with estimated r ight atrial pressure of 15 mmHg. There is no pericardial effusion. CONCLUSIONS -------- 1. Sinus rhythm. 2. This was a technically good study. 3. The left ventricular size is normal. 4. There is moderate concentric left ventricular hypertrophy. 5. Overall left ventricular systolic function is normal with, an EF between 55 - 60 %. 6. The right ventricle is moderately enlarged. 7. LA is severely dilated >40 ml/m2 8. Aortic valve is trileaflet and is mildly thickened. 9. There is mild aortic regurgitation. 10. The mitral valve leaflets are mildly thickened. 11. Mild mitral regurgitation is present. 12. Mild tricuspid regurgitation present. 13. There is moderate pulmonary hypertension. 14. Trace/mild (physiologic) pulmonic regurgitation. 15. The aortic root is dilated measuring 4.1cm. 16. The inferior vena cava is dilated with poor inspiratory collapse which is consistent with estimat ed right atrial pressure of 15 mmHg. 17. There is no pericardial effusion. NURSES' REGISTRY DIRECTOR: Kelsie Zhou RDCS
[2018-04-30] MEDS: cefTRIAXone IN SWFI 2,000 MG/20 ML SYRINGE IVP SCH (22:20)
[2018-04-30 23:02] LABS: Cholesterol 103 mg/dL (<200); HDL Cholesterol 39 mg/dL (40-60); LDL Cholesterol,Calculated 56 mg/dL (0-99); Triglycerides 41 mg/dL (<150)
[2018-05-01] MEDS ORDERED: SODIUM CHLORIDE 0.9% 1,000 ML in EMPTY BAG 1 BAG IV ONE (06:00)
[2018-05-01] MEDS ORDERED: ATORVASTATIN 80 MG TAB PO ONE (06:00)
[2018-05-01] MEDS ORDERED: ASPIRIN 325 MG TAB PO ONE (06:00)
[2018-05-01] MEDS: ASPIRIN 81 MG PO SCH (06:15)
[2018-05-01] MEDS: FINASTERIDE 5 MG TAB PO SCH (06:15)
[2018-05-01] MEDS: LISINOPRIL 5 MG TAB PO SCH (06:15)
[2018-05-01] MEDS: CLOPIDOGREL 75 MG TAB PO SCH (06:15)
[2018-05-01] MEDS ORDERED: MIDAZOLAM 2 MG/2 ML VIAL ONE (07:40)
[2018-05-01] MEDS ORDERED: diphenhydrAMINE 50 MG/ML 1 ML VIAL ONE (07:40)
[2018-05-01] MEDS ORDERED: IV FLUID CONTINUATION 875 ML IV ONE (07:52)
[2018-05-01] MEDS ORDERED: diphenhydrAMINE 50 MG/ML 1 ML VIAL IVP ONE (07:53)
[2018-05-01] MEDS ORDERED: MIDAZOLAM 2 MG/2 ML VIAL IVP ONE (07:53)
[2018-05-01] MEDS ORDERED: LIDOCAINE 2% INJ 20 MG/ML SQ ONE (07:58)
[2018-05-01] MEDS ORDERED: RX INFO: IV CONTRAST WAS GIVEN 1 EACH MISC MISCELLANE PRN (08:29)
[2018-05-01] MEDS ORDERED: IOPAMIDOL-370 125ML BTL INJ ONE (08:34)
[2018-05-01] MEDS ORDERED: ASPIRIN 325 MG TAB PO SCH (09:00)
--- NOTE | 2018-05-01 09:03 | CC ---
CARDIAC CATHETERIZATION REPORT INDICATION: [id number] elevation IN. PROCEDURE NOTE: After obtaining informed consent, left heart catheterization, coronary angiogram are performed via the right femoral artery using standard Napoleon catheters. The left coronary artery was engaged using a size 5 Napoleon catheter after being unsuccessful with size 4 and multipurpose catheter. The right coronary artery was engaged using a Agustin posterior catheter. The patient tolerated the procedure well without any obvious immediate complications. He received moderate conscious sedation and total sedation time was 20 minutes. FINDINGS: 1. HEMODYNAMICS: Left ventricular end-diastolic pressure is 16 mm. There is no significant gradient across the aortic valve. 2. LEFT VENTRICULOGRAM: Left ventriculogram is not performed. 3. ANGIOGRAPHIC DATA: 4. Left Main Coronary Artery: Left main coronary artery is a normal-sized vessel and is free of stenosis. Divides into left anterior descending coronary artery and circumflex coronary artery. LAD was previously stented in the midportion, appears patent. There is a diagonal branch coming off the stent that appears jailed and has an ostial stenosis. Right coronary artery is a large dominant vessel and is free of significant disease. CONCLUSIONS: Patent stent within the left anterior descending artery, ostial stenosis involving the diagonal branch. PLAN: The elevated troponin is of unclear clinical significance. The patient will continue with optimal medical therapy. MMODL / IJN: [id number] /
[2018-05-01] MEDS: SODIUM CHLORIDE 0.9% 1,000 ML IV SCH ×2 (09:35→22:30)
[2018-05-01] MEDS: FUROSEMIDE 40 MG TAB PO SCH (10:27)
--- NOTE | 2018-05-01 15:18 | PN ---
PROGRESS NOTE Mr. Cook is doing well today, underwent cardiac cath by Dr. Alejo which did not reveal any significant obstructive CAD. He is resting comfortably without symptoms. His right groin is clean and dry. Vital signs are stable. S1-S2 heard normally. Lungs are clear. Abdomen and lower exam is unchanged. Plan is to continue current medications. Increase activity. Hopefully can be discharged soon from a cardiac standpoint. MMODL / IJN: [id number] /
--- NOTE | 2018-05-01 15:44 | P.PN ---
Subjective 77-year-old gentleman is being treated for sepsis secondary to urinary tract infection and patient does straight catheterizations urine microbiology and urine cultures are pending. Patient had minimally elevated troponins because of which underwent cardiac catheterization which did not show any significant atherosclerotic stentable vascular disease. Constitutional: Denied any fatigue denied any fever. Cardio vascular: denied any chest pain, palpitations Gastrointestinal denied any nausea vomiting Pulmonary: Denied any shortness of breath cough Neurologic denied any new focal deficits Objective - Vital Signs Vital signs: Vital Signs Temp 97.3 F L 05/01/18 12:14 Pulse 43 L 05/01/18 12:14 Resp 18 05/01/18 12:14 BP 127/62 05/01/18 12:14 Pulse Ox 95 05/01/18 12:14 Intake & Output 04/30/18 05/01/18 05/01/18 18:59 06:59 18:59 Intake Total 855.667 831.741 415 Output Total 2177 600 1250 Balance -1321.333 231.741 -835 Weight 99.6 kg Intake: IV 75 Intake, IV Titration 135.667 181.741 100 Amount Heparin Sodium,Porcine/ 135.667 181.741 D5w Pmx 25,000 unit In Dextrose/Water 1 500ml. bag @ 10.061 UNITS/KG/HR 20 mls/hr IV .Q24H [facility] Rx #:[id number] Sodium Chloride 0.9% 1, 100 000 ml In Empty Bag 1 bag @ 1 ML/KG/HR 99.4 mls/hr IV .Q10H4M ONE Rx#: [id number] Oral 720 650 240 Output: Urine 2177 600 1250 Uretheral (Hair) 600 Other: Voiding Method Indwelling Catheter Indwelling Catheter Indwelling Catheter # Voids 550 - Exam PHYSICAL EXAMINATION: GENERAL: The patient is alert and oriented x3, not in any acute distress. Well developed, well nourished. HEENT: Pupils are round and equally reacting to light. EOMI. No scleral icterus. No conjunctival pallor. Normocephalic, atraumatic. No pharyngeal erythema. No thyromegaly. CARDIOVASCULAR: S1 and S2 present. No murmurs, rubs, or gallops. PULMONARY: Chest is clear to auscultation, no wheezing or crackles. ABDOMEN: Soft, nontender, nondistended, normoactive bowel sounds. No palpable organomegaly. MUSCULOSKELETAL: No joint swelling or deformity. EXTREMITIES: No cyanosis, clubbing, or pedal edema. Patient has a Hair catheter in place which will be continued NEUROLOGICAL: Gross neurological examination did not reveal any focal deficits. SKIN: No rashes. - Labs CBC & Chem 7: 04/30/18 06:34 04/30/18 06:34 Labs: Abnormal Lab Results - Last 24 Hours (Table) 04/30/18 04/30/18 Range/Units 06:23 23:25 APTT 31.7 H (22.0-30.0) sec HDL Cholesterol 39 L (40-60) mg/dL Microbiology - Last 24 Hours (Table) 04/30/18 12:09 Blood Culture - Preliminary Blood No Growth after 24 hours 04/30/18 06:30 Urine Culture - Preliminary Urine,Catheterized Coagulase Negative Staph 04/29/18 23:20 Blood Culture - Preliminary Blood No Growth after 24 hours Assessment and Plan Plan: -Possible sepsis secondary to urinary tract infection patient does do straight catheterization at home patient does have benign prostatic hypertrophic Rocephin will be continued awaiting urine cultures. - Elevated troponins can be from sepsis considering his symptoms, patient underwent cardia catheterization patient had previous stenting to LAD which was patent -Benign prostatic hypertrophy -Hyperlipidemia -Hypertension -Congestive heart failure chronic systolic dysfunction without any acute exacerbation patient is fairly euvolemic IV fluids were discontinued and patient is on oral Lasix which will be continued.
[2018-05-01] MEDS: TAMSULOSIN 0.4 MG CAP.ER.24H PO SCH (16:10)
[2018-05-01] MEDS: cefTRIAXone IN SWFI 2,000 MG/20 ML SYRINGE IVP SCH (20:29)
[2018-05-01] MEDS ORDERED: ATORVASTATIN 80 MG TAB PO SCH (21:00)
[2018-05-02 06:33] LABS: HCT 29.8 % (39.0-53.0); HGB 9.5 gm/dL (13.0-17.5); MCV 90.7 fL (80.0-100.0); Mean Platelet Volume 7.5; Platelet Count 167 k/uL (150-450); RBC 3.29 m/uL (4.30-5.90); RDW 15.4 % (11.5-15.5); WBC 5.7 k/uL (3.8-10.6)
[2018-05-02 06:43] LABS: Anion Gap 9 mmol/L; Blood Urea Nitrogen 17 mg/dL (9-20); Calcium 8.2 mg/dL (8.4-10.2); Carbon Dioxide 28 mmol/L (22-30); Chloride 105 mmol/L (98-107); Glucose 106 mg/dL (74-99); Potassium 3.4 mmol/L (3.5-5.1); Sodium 142 mmol/L (137-145)
[2018-05-02 08:15] VITALS: RESP 18
[2018-05-02] MEDS: ASPIRIN 81 MG PO SCH (09:06)
[2018-05-02] MEDS: FUROSEMIDE 40 MG TAB PO SCH (09:06)
[2018-05-02] MEDS: LISINOPRIL 5 MG TAB PO SCH (09:06)
[2018-05-02] MEDS: FINASTERIDE 5 MG TAB PO SCH (09:06)
[2018-05-02] MEDS: CLOPIDOGREL 75 MG TAB PO SCH (09:06)
[2018-05-02] MEDS ORDERED: Potassium Replacement Protocol 1 EACH MISC MISCELLANE PRN (10:16)
[2018-05-02] MEDS ORDERED: FUROSEMIDE 10 MG/ML 4 ML VIAL IV STA (10:40)
[2018-05-02] MEDS: POTASSIUM CHLORIDE ER 20 MEQ TAB.ER PO SCH ×2 (11:13→12:15)
[2018-05-02 11:50] VITALS: BP 152/85; PULSE 48; TEMP 97
--- NOTE | 2018-05-02 13:53 | P.DS ---
Providers Date of admission: 04/30/18 02:20 Attending physician: Melissa Dubon Consults: 04/30/18 00:57 Consult Physician Urgent Consulting Provider: Tera Alejo Consult Reason/Comments: Elevated troponin Do you want consulting provider notified?: Yes Primary care physician: Wanda Jameson [facility] Course: 77-year-old gentleman is being treated for sepsis secondary to urinary tract infection and patient does straight catheterizations urine microbiology and urine cultures are pending. Patient had minimally elevated troponins because of which underwent cardiac catheterization which did not show any significant atherosclerotic stentable vascular disease. 05/02/2018 Urine cultures are showing coagulase-negative staph, this finding is insignificant as patient improved with the Rocephin patient will be discharged on Ceftin for a week Hair catheter will be removed and patient will lead to the straight catheterizations. Patient does have some crackles in the lung exam although patient does have pulmonary fibrosis crackles may be related to pulmonary fibrosis but patient is EF is low clinically patient does not have any elevated JVD. We'll give an additional dose of Lasix before discharge in IV form. PHYSICAL EXAMINATION: GENERAL: The patient is alert and oriented x3, not in any acute distress. Well developed, well nourished. HEENT: Pupils are round and equally reacting to light. EOMI. No scleral icterus. No conjunctival pallor. Normocephalic, atraumatic. No pharyngeal erythema. No thyromegaly. CARDIOVASCULAR: S1 and S2 present. No murmurs, rubs, or gallops. PULMONARY: Crackles in the left lower lung bases ABDOMEN: Soft, nontender, nondistended, normoactive bowel sounds. No palpable organomegaly. MUSCULOSKELETAL: No joint swelling or deformity. EXTREMITIES: No cyanosis, clubbing, or pedal edema. Patient has a Hair catheter in place which will be continued NEUROLOGICAL: Gross neurological examination did not reveal any focal deficits. SKIN: No rashes. Assessment and Plan Plan: -Possible sepsis secondary to urinary tract infection patient does do straight catheterization at home patient does have benign prostatic hypertrophic hypertrophy and patient will follow with Dr. Zuñiga. - Elevated troponins probably from sepsis patient underwent cardia catheterization which showed patent stents in LAD -Benign prostatic hypertrophy -Hyperlipidemia -Hypertension -Congestive heart failure chronic systolic dysfunction without any acute exacerbation patient is fairly euvolemic Patient Condition at Discharge: Good Plan - Discharge Summary Discharge Rx Participant: No New Discharge Prescriptions: New Cefuroxime Axetil [Ceftin] 500 mg PO BID #14 tab Continue Finasteride [Proscar] 5 mg PO DAILY Albuterol Inhaler [Ventolin Hfa Inhaler] 1 - 2 puff INHALATION RT-Q4H PRN PRN Reason: Shortness Of Breath Fluticasone/Umeclidin/Vilanter [Trelegy Ellipta 100-62.5-25] 1 puff INHALATION RT-DAILY Aspirin 81 mg PO DAILY #30 chew Atorvastatin [Lipitor] 80 mg PO HS #30 tab Clopidogrel [Plavix] 75 mg PO DAILY #30 tab Furosemide [Lasix] 40 mg PO DAILY #30 tablet Lisinopril [Zestril] 5 mg PO DAILY #30 tab Nitroglycerin Sl Tabs [Nitrostat] 0.4 mg SUBLINGUAL Q5M PRN #30 tab PRN Reason: Chest Pain Tamsulosin [Flomax] 0.4 mg PO PC-SUPPER #30 cap.er.24h Discharge Medication List Albuterol Inhaler [Ventolin Hfa Inhaler] 1 - 2 puff INHALATION RT-Q4H PRN [History] Finasteride [Proscar] 5 mg PO DAILY 02/21/18 [History] Fluticasone/Umeclidin/Vilanter [Trelegy Ellipta 100-62.5-25] 1 puff INHALATION RT-DAILY 02/21/18 [History] Aspirin 81 mg PO DAILY #30 chew 02/24/18 [Rx] Atorvastatin [Lipitor] 80 mg PO HS #30 tab 02/24/18 [Rx] Clopidogrel [Plavix] 75 mg PO DAILY #30 tab 02/24/18 [Rx] Furosemide [Lasix] 40 mg PO DAILY #30 tablet 02/24/18 [Rx] Lisinopril [Zestril] 5 mg PO DAILY #30 tab 02/24/18 [Rx] Nitroglycerin Sl Tabs [Nitrostat] 0.4 mg SUBLINGUAL Q5M PRN #30 tab 02/24/18 [Rx ] Tamsulosin [Flomax] 0.4 mg PO PC-SUPPER #30 cap.er.24h 02/24/18 [Rx] Cefuroxime Axetil [Ceftin] 500 mg PO BID #14 tab 05/02/18 [Rx] Follow up Appointment(s)/Referral(s): Trino Muñoz MD [Primary Care Provider] - 3 Days Tera Alejo MD [STAFF PHYSICIAN] - 1 Week Cam Ryan MD [STAFF PHYSICIAN] - 1 Week (office will call for appointment within 1 week.)
--- NOTE | 2018-05-02 21:57 | PN ---
PROGRESS NOTE Mr. Cook underwent cardiac cath yesterday. He sees Dr. Alejo in the outpatient setting. Cardiac cath did not reveal obstructive CAD, but this morning he is in a sinus rhythm with episodes of what seems to be 2:1 block with a narrow QRS without any symptoms. I had this patient walk up and down the hallway and heart rate went up to 70 and the heart block vanished. He is not on any rate-lowering agents. I recommended that he can be discharged today with a clear understanding that he should not be on any rate-lowering agents. He will follow up with Dr. Alejo as an outpatient in about a week. If he has any questions, concerns or problems, he was encouraged to call us. MMMERCEDL / ROBERTN: [id number] /
== END 2018-05-02 16:44 | disposition home or self-care (01) | DRG 872 ==
LOC: EC 21:58 → 6SEL 04-30 02:20
PROVIDERS: ADMIT Hospitalist; ATTEND Hospitalist
PROC: B2111ZZ Fluoroscopy of Multiple Coronary Arteries using Low Osmolar Contrast (ICD-10-PCS; principal; 2018-04-30)
PROC: 4A023N7 Measurement of Cardiac Sampling and Pressure, Left Heart, Percutaneous Approach (ICD-10-PCS; principal; 2018-04-30)
DX: A41.9 Sepsis, unspecified organism (principal); I50.22 Chronic systolic (congestive) heart failure; N39.0 Urinary tract infection, site not specified; D64.9 Anemia, unspecified; E78.5 Hyperlipidemia, unspecified; E87.6 Hypokalemia; I11.0 Hypertensive heart disease with heart failure; I25.10 Atherosclerotic heart disease of native coronary artery without angina pectoris; I45.10 Unspecified right bundle-branch block; K76.89 Other specified diseases of liver; N40.0 Benign prostatic hyperplasia without lower urinary tract symptoms; Z79.02 Long term (current) use of antithrombotics/antiplatelets; Z79.82 Long term (current) use of aspirin; Z79.899 Other long term (current) drug therapy; Z86.711 Personal history of pulmonary embolism; Z95.5 Presence of coronary angioplasty implant and graft; R77.8 Other specified abnormalities of plasma proteins
CPT/HCPCS: 36415; 71046; 74177; 80048; 80053; 80061; 81001; 82550; 82553; 83605; 84443; 84484; 85025; 85027; 85610; 85730; 87040; 87077; 87086; 87186; 93005; 93306; 93458; 94640; 94760; 96361; 96374; 99284

== ENCOUNTER → 2018-08-18 | Outpatient (CLI) | payer MEDICARE ==
--- NOTE | 2018-08-18 14:00 | XR ---
EXAM TYPE: LUMBAR SPINE X RAY SERIES COMPARISON: NONE HISTORY: Pain TECHNIQUE: 4 views are submitted. FINDINGS: Alignment is anatomic. The pedicles are intact. The transverse processes are intact. There is no s pondylolysis or spondylolisthesis. Hypertrophic and degenerative changes are seen throughout the lum bar spine with multilevel facet arthropathy. Vascular calcifications are seen. IMPRESSION: 1. Severe degenerative disc disease and hypertrophic changes at all levels.
--- NOTE | 2018-08-18 14:01 | XR ---
EXAMINATION TYPE: XR Hip Bilateral Complete DATE OF EXAM: 08/18/2018 COMPARISON: NONE HISTORY: Pain TECHNIQUE: 2 views submitted of each hip FINDINGS: There is no evidence of erosive change or acute fracture. Hypertrophic spurring involving the trochanter is noted bilaterally. There is mild to moderate axial narrowing of the joint space bilaterally. IMPRESSION: 1. 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
--- NOTE | 2018-08-18 14:04 | XR ---
EXAMINATION TYPE: XR KUB DATE OF EXAM: 08/18/2018 COMPARISON: NONE HISTORY: Pain TECHNIQUE: One view abdominal series FINDINGS: The osseous structures are intact. The bowel gas pattern is nonspecific. Hypertrophic and degenerati ve changes of the spine. Osteitis pubis condensans. Arthropathy of the hips. Vascular calcifications noted. IMPRESSION: 1. Nonspecific abdomen.
== END | disposition home or self-care (01) ==
LOC: RADXRMAIN 12:47
PROVIDERS: ATTEND Physician Assistant
DX: M51.36 Other intervertebral disc degeneration, lumbar region (principal); M53.86 Other specified dorsopathies, lumbar region; M16.0 Bilateral primary osteoarthritis of hip; N20.0 Calculus of kidney
CPT/HCPCS: 72110; 73521; 74018

== ENCOUNTER 2018-08-24 09:37 | Emergency (ER) | payer MEDICARE ==
[2018-08-24 09:45] VITALS: PULSE 60; RESP 18
[2018-08-24] MEDS ORDERED: SODIUM CHLORIDE 0.9% 1,000 ML IV STA ×2 (10:10)
[2018-08-24] MEDS ORDERED: ONDANSETRON 4 MG/2 ML VIAL IVP STA (10:10)
[2018-08-24] MEDS ORDERED: MORPHINE SULFATE 4 MG/ML SYRINGE IV STA (10:10)
--- NOTE | 2018-08-24 10:14 | ED ---
Abdominal Pain HPI - General Chief Complaint: Abdominal Pain Stated Complaint: Abd/back pain Time Seen by Provider: 08/24/18 10:02 Source: patient, RN notes reviewed, old records reviewed Mode of arrival: wheelchair Limitations: no limitations - History of Present Illness Initial Comments: 70-year-old male presents emergency room CO2 but a 6-8 weeks of intermittent progressive left-sided abdominal pain. He reports it seems after he had his bladder stone removal. He reports he's on rounds of antibiotics from his PCP and his urologist for [facility]. Patient states that he is continue to have these pains. He reports over the past week and has had multiple episodes of vomiting having a hard time keeping down fluids. He reports that he had some outpatient x-rays earlier in the week which were unremarkable. Patient states that he has pain from the left lower quadrant radiating towards his back. He states he feels like he has an "air pocket" in his abdomen. Patient states that he's had bowel movements every 3 days, this is typical for Patient. Patient reports no hematemesis or melena. Patient also reports these been having some intermittent chest discomfort, nothing recently. He reports he is an outpatient stress test For September 06. Patient states that she's had multiple stents and is currently on blood thinners. - Related Data Home Medications Medication Instructions Recorded Confirmed Finasteride [Proscar] 5 mg PO DAILY 02/21/18 08/24/18 Cephalexin [Keflex] 500 mg PO Q12HR 08/24/18 08/24/18 Gabapentin [Neurontin] 300 mg PO TID 08/24/18 08/24/18 Loratadine [Claritin] 10 mg PO DAILY 08/24/18 08/24/18 Previous Rx's Medication Instructions Recorded Aspirin 81 mg PO DAILY #30 chew 02/24/18 Atorvastatin [Lipitor] 80 mg PO HS #30 tab 02/24/18 Clopidogrel [Plavix] 75 mg PO DAILY #30 tab 02/24/18 Furosemide [Lasix] 40 mg PO DAILY #30 tablet 02/24/18 Lisinopril [Zestril] 5 mg PO DAILY #30 tab 02/24/18 Nitroglycerin Sl Tabs [Nitrostat] 0.4 mg SUBLINGUAL Q5M PRN #30 tab 02/24/18 Tamsulosin [Flomax] 0.4 mg PO PC-SUPPER #30 cap.er.24h 05/02/18 Acetaminophen-Codeine 300-30mg 1 tab PO Q4H PRN 3 Days #18 tablet 08/24/18 [Tylenol w/codeine #3] Amoxic-Pot Clav 875-125Mg 1 tab PO Q12HR #20 tablet 08/24/18 [Augmentin 875-125] Ondansetron [Zofran] 4 mg PO Q8HR PRN #12 tab 08/24/18 Allergies Allergy/AdvReac Type Severity Reaction Status Date / Time No Known Allergies Allergy Verified 08/24/18 09:40 Review of Systems ROS Statement: Those systems with pertinent positive or pertinent negative responses have been documented in the HPI. ROS Other: All systems not noted in ROS Statement are negative. Past Medical History Past Medical History: Heart Failure, Deep Vein Thrombosis (DVT), Pneumonia, Prostate Disorder, Pulmonary Embolus (PE) History of Any Multi-Drug Resistant Organisms: None Reported Past Surgical History: Appendectomy, Heart Catheterization, Heart Catheterization With Stent Additional Past Surgical History / Comment(s): Bladder stone removal Past Anesthesia/Blood Transfusion Reactions: No Reported Reaction Date of Last Stent Placement:: January 2018 Past Psychological History: No Psychological Hx Reported Smoking Status: Never smoker Past Alcohol Use History: None Reported Past Drug Use History: None Reported General Exam - General Exam Comments Initial Comments: 78-year-old male. Alert and oriented. Patient appears in no significant distress at this time. Limitations: no limitations General appearance: alert, in no apparent distress Head exam: Present: atraumatic, normocephalic, normal inspection Eye exam: Present: normal appearance, PERRL, EOMI. Absent: scleral icterus, conjunctival injection, periorbital swelling ENT exam: Present: normal exam, mucous membranes dry, mucous membranes moist. Absent: normal oropharynx Neck exam: Present: normal inspection. Absent: tenderness, meningismus, lymphadenopathy Respiratory exam: Present: normal lung sounds bilaterally. Absent: respiratory distress, wheezes, rales, rhonchi, stridor Cardiovascular Exam: Present: regular rate, normal rhythm, normal heart sounds. Absent: systolic murmur, diastolic murmur, rubs, gallop, clicks GI/Abdominal exam: Present: soft, tenderness (Left lower quadrant tenderness.), normal bowel sounds. Absent: distended, guarding, rebound, rigid Extremities exam: Present: normal inspection, full ROM, normal capillary refill. Absent: tenderness, pedal edema, joint swelling, calf tenderness Back exam: Present: normal inspection, CVA tenderness (L) Neurological exam: Present: alert, oriented X3, CN II-XII intact Psychiatric exam: Present: normal affect, normal mood Skin exam: Present: warm, dry, intact, normal color. Absent: rash Course Vital Signs 08/24/18 09:40 Temperature 98 F Pulse Rate 60 Respiratory 18 Rate Blood Pressure 145/74 O2 Sat by Pulse 97 Oximetry Medical Decision Making - Medical Decision Making 78-year-old male presents today with intermittent left-sided abdominal pain. Patient has had multiple kidney stones in the past. He does report that he's been taking Keflex recently for his urologist. Take some today. At this time patient's mother was reviewed her medical except significant hematuria and blood in his urine. Patient does report that he's had a history of chest pain, nothing recently within the past week. Does have an outpatient stress test scheduled. At this and his EKG shows no acute changes. Troponin is compared to his previous troponins and this has actually been decreased from his last troponin. Patient at this time did have a CT of his abdomen pelvis. Multiple bladder stones. Evidence of diverticulosis without diverticulitis. No evidence of any obstructing stones at this time. Most likely Patient recently passed out due to significant blood within his urine. I discussed his help with his urologist Dr. Mckee at [place]. We'll start the Patient on antibiotics, nausea medication and pain medication he does pass it. He also has a prescription for Flomax at this time. We will culture the urine. I did discuss close follow-up with PCP. All questions answered return parameters were discussed. - Lab Data Result diagrams: 08/24/18 10:00 08/24/18 10:00 Lab Results 08/24/18 08/24/18 08/24/18 Range/Units 10:00 10:00 10:00 WBC 6.5 (3.8-10.6) k/uL RBC 4.26 L (4.30-5.90) m/uL Hgb 12.5 L (13.0-17.5) gm/dL Hct 39.1 (39.0-53.0) % MCV 91.6 (80.0-100.0) fL MCH 29.3 (25.0-35.0) pg MCHC 32.0 (31.0-37.0) g/dL RDW 14.2 (11.5-15.5) % Plt Count 257 (150-450) k/uL Neutrophils % 74 % Lymphocytes % 18 % Monocytes % 6 % Eosinophils % 1 % Basophils % 0 % Neutrophils # 4.8 (1.3-7.7) k/uL Lymphocytes # 1.2 (1.0-4.8) k/uL Monocytes # 0.4 (0-1.0) k/uL Eosinophils # 0.1 (0-0.7) k/uL Basophils # 0.0 (0-0.2) k/uL PT 11.6 (9.0-12.0) sec INR 1.2 H (<1.2) APTT 25.9 (22.0-30.0) sec Sodium 143 (137-145) mmol/L Potassium 4.2 (3.5-5.1) mmol/L Chloride 108 H (98-107) mmol/L Carbon Dioxide 26 (22-30) mmol/L Anion Gap 9 mmol/L BUN 29 H (9-20) mg/dL Creatinine 0.79 (0.66-1.25) mg/dL Est GFR (CKD-EPI)AfAm >90 (>60 ml/min/1.73 sqM) Est GFR (CKD-EPI)NonAf 86 (>60 ml/min/1.73 sqM) Glucose 105 H (74-99) mg/dL Calcium 9.3 (8.4-10.2) mg/dL Total Bilirubin 1.2 (0.2-1.3) mg/dL AST 34 (17-59) U/L ALT 33 (21-72) U/L Alkaline Phosphatase 60 (38-126) U/L Troponin I (0.000-0.034) ng/mL Total Protein 7.0 (6.3-8.2) g/dL Albumin 3.8 (3.5-5.0) g/dL Amylase 32 (30-110) U/L Lipase 81 (23-300) U/L Urine Color Urine Appearance (Clear) Urine pH (5.0-8.0) Ur Specific [place] (1.001-1.035) Urine Protein (Negative) Urine Glucose (UA) (Negative) Urine Ketones (Negative) Urine Blood (Negative) Urine Nitrite (Negative) Urine Bilirubin (Negative) Urine Urobilinogen (<2.0) mg/dL Ur Leukocyte Esterase (Negative) Urine RBC (0-5) /hpf Urine WBC (0-5) /hpf Urine Mucus (None) /hpf Urine Yeast (Budding) (None) /hpf 08/24/18 08/24/18 Range/Units 10:00 10:25 WBC (3.8-10.6) k/uL RBC (4.30-5.90) m/uL Hgb (13.0-17.5) gm/dL Hct (39.0-53.0) % MCV (80.0-100.0) fL MCH (25.0-35.0) pg MCHC (31.0-37.0) g/dL RDW (11.5-15.5) % Plt Count (150-450) k/uL Neutrophils % % Lymphocytes % % Monocytes % % Eosinophils % % Basophils % % Neutrophils # (1.3-7.7) k/uL Lymphocytes # (1.0-4.8) k/uL Monocytes # (0-1.0) k/uL Eosinophils # (0-0.7) k/uL Basophils # (0-0.2) k/uL PT (9.0-12.0) sec INR (<1.2) APTT (22.0-30.0) sec Sodium (137-145) mmol/L Potassium (3.5-5.1) mmol/L Chloride (98-107) mmol/L Carbon Dioxide (22-30) mmol/L Anion Gap mmol/L BUN (9-20) mg/dL Creatinine (0.66-1.25) mg/dL Est GFR (CKD-EPI)AfAm (>60 ml/min/1.73 sqM) Est GFR (CKD-EPI)NonAf (>60 ml/min/1.73 sqM) Glucose (74-99) mg/dL Calcium (8.4-10.2) mg/dL Total Bilirubin (0.2-1.3) mg/dL AST (17-59) U/L ALT (21-72) U/L Alkaline Phosphatase (38-126) U/L Troponin I 0.036 H* (0.000-0.034) ng/mL Total Protein (6.3-8.2) g/dL Albumin (3.5-5.0) g/dL Amylase (30-110) U/L Lipase (23-300) U/L Urine Color Dark Brown Urine Appearance Cloudy (Clear) Urine pH 5.5 (5.0-8.0) Ur Specific [place] 1.020 (1.001-1.035) Urine Protein 2+ H (Negative) Urine Glucose (UA) Negative (Negative) Urine Ketones Negative (Negative) Urine Blood Large H (Negative) Urine Nitrite Negative (Negative) Urine Bilirubin Negative (Negative) Urine Urobilinogen <2.0 (<2.0) mg/dL Ur Leukocyte Esterase Small H (Negative) Urine RBC >182 H (0-5) /hpf Urine WBC 31 H (0-5) /hpf Urine Mucus Moderate H (None) /hpf Urine Yeast (Budding) Occasional H (None) /hpf 08/24/18 12:20 EKG shows atrial fib. Voltage criteria for left ventricular hypertrophy. Nonspecific ST and T-wave abnormality. Abnormal EKG. Ventricular rate 49 bpm. MS interval is undetectable. QRS duration is 114. QTQTC's 506/47. - Radiology Data Radiology results: report reviewed Prostate markedly enlarged and there are numerous bladder colliculi without evidence of hydronephrosis. Bladder wall thickening to be associated with cystitis. Mucosal lesion not excluded to correlate clinically. Nonobstructing left renal 2 mm calculus. Stable hepatic lesions compatible cyst. Diverticulosis of the colon. Disposition Clinical Impression: UTI (urinary tract infection), Bladder stone Disposition: HOME SELF-CARE Condition: Good Instructions: Bladder Stones (ED) Additional Instructions: Patient has follow-up with your urologist. Return to the emergency department if any alarming signs or symptoms occur. Prescriptions: Acetaminophen-Codeine 300-30mg [Tylenol w/codeine #3] 1 tab PO Q4H PRN 3 Days # 18 tablet PRN Reason: Pain Amoxic-Pot Clav 875-125Mg [Augmentin 875-125] 1 tab PO Q12HR #20 tablet Ondansetron [Zofran] 4 mg PO Q8HR PRN #12 tab PRN Reason: Pain Is patient prescribed a controlled substance at d/c from ED?: No Referrals: Trino Muñoz MD [Primary Care Provider] - 1-2 days Donnie Mckee MD [REFERRING] - 1-2 days Time of Disposition: 12:18
[2018-08-24 10:34] LABS: Basophils % (A) 0 %; Eosinophils # (A) 0.1 k/uL (0-0.7); Eosinophils % (A) 1 %; HCT 39.1 % (39.0-53.0); HGB 12.5 gm/dL (13.0-17.5); Lymphocytes # (A) 1.2 k/uL (1.0-4.8); Lymphocytes % (A) 18 %; MCH 29.3 pg (25.0-35.0); MCV 91.6 fL (80.0-100.0); Mean Platelet Volume 6.8; Monocytes # (A) 0.4 k/uL (0-1.0); Monocytes % (A) 6 %; Neutrophils # (A) 4.8 k/uL (1.3-7.7); Neutrophils % (A) 74 %; Platelet Count 257 k/uL (150-450); RBC 4.26 m/uL (4.30-5.90); RDW 14.2 % (11.5-15.5); WBC 6.5 k/uL (3.8-10.6)
[2018-08-24 10:39] LABS: ALT 33 U/L (21-72); AST 34 U/L (17-59); Albumin 3.8 g/dL (3.5-5.0); Alkaline Phosphatase 60 U/L (38-126); Amylase 32 U/L (30-110); Anion Gap 9 mmol/L; Blood Urea Nitrogen 29 mg/dL (9-20); Calcium 9.3 mg/dL (8.4-10.2); Carbon Dioxide 26 mmol/L (22-30); Chloride 108 mmol/L (98-107); Glucose 105 mg/dL (74-99); Lipase 81 U/L (23-300); Potassium 4.2 mmol/L (3.5-5.1); Sodium 143 mmol/L (137-145); Total Bilirubin 1.2 mg/dL (0.2-1.3)
[2018-08-24 10:44] LABS: INR 1.2 (<1.2); Partial Thromboplastin Time 25.9 sec (22.0-30.0); Prothrombin Time 11.6 sec (9.0-12.0)
[2018-08-24 11:02] LABS: Appearance,Urine Cloudy (Clear); Bilirubin,Urine Negative (Negative); Blood,Urine Large (Negative); Budding Yeast,Urine Occasional /hpf; Color,Urine Dark Brown; Glucose,Urine (UA) Negative (Negative); Ketones,Urine Negative (Negative); Leukocyte Esterase,Urine Small (Negative); Mucus,Urine Moderate /hpf; Nitrite,Urine Negative (Negative); PH, Urine 5.5 (5.0-8.0); Protein,Urine 2+ (Negative); RBC,Urine >182 /hpf (0-5); Urobilinogen,Urine <2.0 mg/dL (<2.0); WBC,Urine 31 /hpf (0-5)
--- NOTE | 2018-08-24 11:29 | CT ---
EXAMINATION TYPE: CT abdomen pelvis w con DATE OF EXAM: 08/24/2018 COMPARISON: 04/30/2018 HISTORY: LLQ pain CT DLP: 1027.9 mGycm Automated exposure control for dose reduction was used. CONTRAST: CT scan of the abdomen pelvis is performed with IV Contrast, patient injected with 100 mL of Isovue 3 00. FINDINGS- LUNG BASES- No significant abnormality is appreciated. LIVER/GB- Liver: Multiple hypodense liver lesions, largest measuring 6.7 cm. Gallbladder and bile d ucts: No radiopaque calculi. No biliary ductal dilation. PANCREAS- No gross abnormality is seen. SPLEEN- No gross abnormality is seen. ADRENALS- No gross abnormality is seen. KIDNEYS/BLADDER-no hydronephrosis. There is cortical loss involving the kidney suggestive of chronic medical renal disease. Nonobstructing 2 mm left renal calculus.. Stable right-sided renal cyst noted. . BOWEL-bowel gas pattern is nonspecific with no diagnostic evidence of obstruction. Small hiatal herni a noted. Diverticulosis of the colon. LYMPH NODES- No greater than 1cm abdominal or pelvic lymph nodes areappreciated. OSSEOUS STRUCTURES-hypertrophic and degenerative change of the spine. OTHER- fat-containing periumbilical hernia noted. Prostate markedly enlarged and there are numerous bladder calculi again noted. IMPRESSION- 1. Prostate markedly enlarged and there are numerous bladder calculi without evidence of hydronephros is. Bladder wall thickening can be associated with cystitis. Mucosal lesion is not excluded correlate clinically. 2. Nonobstructing left renal 2 mm calculus. 3. Stable hepatic lesions compatible with cysts. 4. Diverticulosis of the colon.
[2018-08-24 12:58] VITALS: BP 158/82; TEMP 98.1
== END 2018-08-24 12:57 | disposition home or self-care (01) ==
LOC: EC 09:37
DX: N21.0 Calculus in bladder (principal); N39.0 Urinary tract infection, site not specified; K57.30 Diverticulosis of large intestine without perforation or abscess without bleeding; N40.0 Benign prostatic hyperplasia without lower urinary tract symptoms; N20.0 Calculus of kidney; K76.89 Other specified diseases of liver; I48.91 Unspecified atrial fibrillation; I51.7 Cardiomegaly; R94.31 Abnormal electrocardiogram [ECG] [EKG]; Z79.899 Other long term (current) drug therapy; Z90.49 Acquired absence of other specified parts of digestive tract; Z95.5 Presence of coronary angioplasty implant and graft; Z98.890 Other specified postprocedural states
CPT/HCPCS: 36415; 93005; 80053; 82150; 83690; 84484; 85025; 85610; 85730; 81001; 87086; 74177; 99285; 96374; 96375; 96361 ×3; J2270; J2405; Q9967

== ENCOUNTER 2018-09-01 16:44 | Emergency (ER) | payer MEDICARE ==
[2018-09-01] MEDS ORDERED: SODIUM CHLORIDE 0.9% 1,000 ML IV STA (17:19)
[2018-09-01] MEDS ORDERED: MORPHINE SULFATE 2 MG/ML SYRINGE IVP STA (17:19)
[2018-09-01] MEDS ORDERED: ONDANSETRON 4 MG/2 ML VIAL IVP STA (17:19)
--- NOTE | 2018-09-01 17:26 | ED ---
General Adult HPI - General Source: patient, RN notes reviewed, old records reviewed Mode of arrival: wheelchair Limitations: no limitations <Shiv Zimmerman - Last Filed: 09/01/18 17:23> <Ihsan Pizano - Last Filed: 09/01/18 21:16> - General Chief complaint: Abdominal Pain Stated complaint: Abd pain Time Seen by Provider: 09/01/18 17:10 - History of Present Illness Initial comments: Patient 78-year-old male presented to the emergency room today with chief complaint of increased abdominal pain. Patient does admit that over the last 2 weeks been experiencing some discomfort in the lower abdomen. He has history of kidney stones. This was seen here from the emergency room had a CT performed. This was advised follow-up with his urologist. States he saw the urologist following day who advised him to see a muck miner. He states awaiting this appointment. Patient does admit that he still experiencing pain in the lower abdomen. Patient states that it starts in the left lower side radiates to the right and into the back. Patient denies any recent fever, chills, shortness of breath, chest pain, back pain, numbness or tingling, headaches or visual changes, or any other complaints. (Shiv Zimmerman) - Related Data Home Medications Medication Instructions Recorded Confirmed Finasteride [Proscar] 5 mg PO DAILY 02/21/18 09/01/18 Gabapentin [Neurontin] 300 mg PO TID 08/24/18 09/01/18 Loratadine [Claritin] 10 mg PO DAILY 08/24/18 09/01/18 Previous Rx's Medication Instructions Recorded Aspirin 81 mg PO DAILY #30 chew 02/24/18 Atorvastatin [Lipitor] 80 mg PO HS #30 tab 02/24/18 Clopidogrel [Plavix] 75 mg PO DAILY #30 tab 02/24/18 Furosemide [Lasix] 40 mg PO DAILY #30 tablet 02/24/18 Lisinopril [Zestril] 5 mg PO DAILY #30 tab 02/24/18 Nitroglycerin Sl Tabs [Nitrostat] 0.4 mg SUBLINGUAL Q5M PRN #30 tab 02/24/18 Tamsulosin [Flomax] 0.4 mg PO PC-SUPPER #30 cap.er.24h 05/02/18 Allergies Allergy/AdvReac Type Severity Reaction Status Date / Time No Known Allergies Allergy Verified 09/01/18 17:56 Review of Systems ROS Other: All systems not noted in ROS Statement are negative. <Shiv Zimmerman - Last Filed: 09/01/18 17:23> ROS Other: All systems not noted in ROS Statement are negative. <Ihsan Pizano - Last Filed: 09/01/18 21:16> ROS Statement: Those systems with pertinent positive or pertinent negative responses have been documented in the HPI. Past Medical History Past Medical History: Heart Failure, Deep Vein Thrombosis (DVT), Pneumonia, Prostate Disorder, Pulmonary Embolus (PE) History of Any Multi-Drug Resistant Organisms: None Reported Past Surgical History: Appendectomy, Heart Catheterization, Heart Catheterization With Stent Additional Past Surgical History / Comment(s): Bladder stone removal Past Anesthesia/Blood Transfusion Reactions: No Reported Reaction Date of Last Stent Placement:: January 2018 Past Psychological History: No Psychological Hx Reported Smoking Status: Never smoker Past Alcohol Use History: None Reported Past Drug Use History: None Reported <Shiv Zimmerman - Last Filed: 09/01/18 17:23> General Exam Limitations: no limitations <Shiv Zimmerman - Last Filed: 09/01/18 17:23> <Ihsan Pizano - Last Filed: 09/01/18 21:16> - General Exam Comments Initial Comments: General: The patient is awake and alert, in no distress, and does not appear acutely ill. Eye: Pupils are equal, round and reactive to light. Extra-ocular movements are intact. No nystagmus. There is normal conjunctiva bilaterally. No signs of icterus. Ears, nose, mouth and throat: There are moist mucous membranes and no oral lesions. Neck: The neck is supple, there is no tenderness or JVD. Cardiovascular: There is a regular rate and rhythm. No murmur, rub or gallop is appreciated. Respiratory: Lungs are clear to auscultation, respirations are non-labored, breath sounds are equal. No wheezes, stridor, rales, or rhonchi. Gastrointestinal: Abdomen soft on palpation. Patient does have tenderness both left and right lower quadrant. No rebound or guarding. Musculoskeletal: Normal ROM, no tenderness. Sensation intact. Strength 5/5. Pulses equal bilaterally 2+. Neurological: A&O x 3. CN II-XII intact, There are no obvious motor or sensory deficits. Coordination appears grossly intact. Speech is normal. Skin: Skin is warm and dry and no rashes or lesions are noted. Psychiatric: Cooperative, appropriate mood & affect, normal judgment. (Shiv Zimmerman) Course <Shiv Zimmerman - Last Filed: 09/01/18 17:23> <Ihsan Pizano - Last Filed: 09/01/18 21:16> Vital Signs 09/01/18 09/01/18 16:46 18:40 Temperature 98.4 F Pulse Rate 71 60 Respiratory 18 18 Rate Blood Pressure 161/73 185/99 O2 Sat by Pulse 97 99 Oximetry - Reevaluation(s) Reevaluation #1: 09/01/18 21:15 Hair catheter with approximately 600 mL output. (Ihsan Pizano) Medical Decision Making <Shiv Zimmerman - Last Filed: 09/01/18 17:23> - Lab Data Result diagrams: 09/01/18 17:35 09/01/18 17:35 - Radiology Data Radiology results: report reviewed (Computed tomography scan of the abdomen pelvis shows no definite acute process. Urinary bladder is moderately distended. Bladder calcifications. Prostate enlargement.), image reviewed ( KUB shows no acute process) <Ihsan Pizano - Last Filed: 09/01/18 21:16> - Medical Decision Making Patient reevaluated. Patient and family updated. Patient does have suprapubic fullness and tenderness. (Ihsan Pizano) - Lab Data Lab Results 09/01/18 09/01/18 09/01/18 Range/Units 17:35 17:35 17:35 WBC 6.8 (3.8-10.6) k/uL RBC 3.99 L (4.30-5.90) m/uL Hgb 11.8 L (13.0-17.5) gm/dL Hct 35.8 L (39.0-53.0) % MCV 89.9 (80.0-100.0) fL MCH 29.6 (25.0-35.0) pg MCHC 32.9 (31.0-37.0) g/dL RDW 13.7 (11.5-15.5) % Plt Count 287 (150-450) k/uL Neutrophils % 73 % Lymphocytes % 17 % Monocytes % 7 % Eosinophils % 1 % Basophils % 0 % Neutrophils # 5.0 (1.3-7.7) k/uL Lymphocytes # 1.2 (1.0-4.8) k/uL Monocytes # 0.5 (0-1.0) k/uL Eosinophils # 0.1 (0-0.7) k/uL Basophils # 0.0 (0-0.2) k/uL PT (9.0-12.0) sec INR (<1.2) APTT (22.0-30.0) sec Sodium 143 (137-145) mmol/L Potassium 3.5 (3.5-5.1) mmol/L Chloride 107 (98-107) mmol/L Carbon Dioxide 28 (22-30) mmol/L Anion Gap 8 mmol/L BUN 18 (9-20) mg/dL Creatinine 0.84 (0.66-1.25) mg/dL Est GFR (CKD-EPI)AfAm >90 (>60 ml/min/1.73 sqM) Est GFR (CKD-EPI)NonAf 84 (>60 ml/min/1.73 sqM) Glucose 104 H (74-99) mg/dL Plasma Lactic Acid [place] 1.1 (0.7-2.0) mmol/L Calcium 8.9 (8.4-10.2) mg/dL Total Bilirubin 1.0 (0.2-1.3) mg/dL AST 28 (17-59) U/L ALT 31 (21-72) U/L Alkaline Phosphatase 65 (38-126) U/L Total Protein 6.6 (6.3-8.2) g/dL Albumin 3.5 (3.5-5.0) g/dL Amylase 30 (30-110) U/L Lipase 110 (23-300) U/L Urine Color Urine Appearance (Clear) Urine pH (5.0-8.0) Ur Specific [place] (1.001-1.035) Urine Protein (Negative) Urine Glucose (UA) (Negative) Urine Ketones (Negative) Urine Blood (Negative) Urine Nitrite (Negative) Urine Bilirubin (Negative) Urine Urobilinogen (<2.0) mg/dL Ur Leukocyte Esterase (Negative) Urine RBC (0-5) /hpf Urine WBC (0-5) /hpf Hyaline Casts (0-2) /lpf Urine Mucus (None) /hpf 09/01/18 09/01/18 Range/Units 17:35 20:05 WBC (3.8-10.6) k/uL RBC (4.30-5.90) m/uL Hgb (13.0-17.5) gm/dL Hct (39.0-53.0) % MCV (80.0-100.0) fL MCH (25.0-35.0) pg MCHC (31.0-37.0) g/dL RDW (11.5-15.5) % Plt Count (150-450) k/uL Neutrophils % % Lymphocytes % % Monocytes % % Eosinophils % % Basophils % % Neutrophils # (1.3-7.7) k/uL Lymphocytes # (1.0-4.8) k/uL Monocytes # (0-1.0) k/uL Eosinophils # (0-0.7) k/uL Basophils # (0-0.2) k/uL PT 12.4 H (9.0-12.0) sec INR 1.3 H (<1.2) APTT 24.8 (22.0-30.0) sec Sodium (137-145) mmol/L Potassium (3.5-5.1) mmol/L Chloride (98-107) mmol/L Carbon Dioxide (22-30) mmol/L Anion Gap mmol/L BUN (9-20) mg/dL Creatinine (0.66-1.25) mg/dL Est GFR (CKD-EPI)AfAm (>60 ml/min/1.73 sqM) Est GFR (CKD-EPI)NonAf (>60 ml/min/1.73 sqM) Glucose (74-99) mg/dL Plasma Lactic Acid [place] (0.7-2.0) mmol/L Calcium (8.4-10.2) mg/dL Total Bilirubin (0.2-1.3) mg/dL AST (17-59) U/L ALT (21-72) U/L Alkaline Phosphatase (38-126) U/L Total Protein (6.3-8.2) g/dL Albumin (3.5-5.0) g/dL Amylase (30-110) U/L Lipase (23-300) U/L Urine Color Yellow Urine Appearance Cloudy (Clear) Urine pH 5.5 (5.0-8.0) Ur Specific [place] >1.050 H (1.001-1.035) Urine Protein Trace H (Negative) Urine Glucose (UA) Negative (Negative) Urine Ketones Negative (Negative) Urine Blood Moderate H (Negative) Urine Nitrite Negative (Negative) Urine Bilirubin Negative (Negative) Urine Urobilinogen <2.0 (<2.0) mg/dL Ur Leukocyte Esterase Small H (Negative) Urine RBC 24 H (0-5) /hpf Urine WBC 18 H (0-5) /hpf Hyaline Casts 4 H (0-2) /lpf Urine Mucus Few H (None) /hpf Disposition <Shiv Zimmerman - Last Filed: 09/01/18 17:23> Is patient prescribed a controlled substance at d/c from ED?: No Time of Disposition: 21:08 <Ihsan Pizano - Last Filed: 09/01/18 21:16> Clinical Impression: Urinary retention, Bladder stone Disposition: HOME SELF-CARE Condition: Stable Instructions: Urinary Retention in Men (ED), Enlarged Prostate (BPH) (ED) Additional Instructions: Please follow-up with urology and primary care physician in the next day or 2 for recheck. Return for fevers, increased pain, worsening symptoms or other concerns. Referrals: Trino Muñoz MD [Primary Care Provider] - 1-2 days Cam Ryan MD [STAFF PHYSICIAN] - 1-2 days
[2018-09-01 17:52] LABS: Basophils % (A) 0 %; Eosinophils # (A) 0.1 k/uL (0-0.7); Eosinophils % (A) 1 %; HCT 35.8 % (39.0-53.0); HGB 11.8 gm/dL (13.0-17.5); Lymphocytes # (A) 1.2 k/uL (1.0-4.8); Lymphocytes % (A) 17 %; MCH 29.6 pg (25.0-35.0); MCHC 32.9 g/dL (31.0-37.0); MCV 89.9 fL (80.0-100.0); Mean Platelet Volume 6.9; Monocytes # (A) 0.5 k/uL (0-1.0); Monocytes % (A) 7 %; Neutrophils % (A) 73 %; Platelet Count 287 k/uL (150-450); RBC 3.99 m/uL (4.30-5.90); RDW 13.7 % (11.5-15.5); WBC 6.8 k/uL (3.8-10.6)
[2018-09-01 18:02] LABS: ALT 31 U/L (21-72); AST 28 U/L (17-59); Albumin 3.5 g/dL (3.5-5.0); Alkaline Phosphatase 65 U/L (38-126); Amylase 30 U/L (30-110); Anion Gap 8 mmol/L; Blood Urea Nitrogen 18 mg/dL (9-20); Calcium 8.9 mg/dL (8.4-10.2); Carbon Dioxide 28 mmol/L (22-30); Chloride 107 mmol/L (98-107); Glucose 104 mg/dL (74-99); INR 1.3 (<1.2); Lipase 110 U/L (23-300); Partial Thromboplastin Time 24.8 sec (22.0-30.0); Potassium 3.5 mmol/L (3.5-5.1); Prothrombin Time 12.4 sec (9.0-12.0); Sodium 143 mmol/L (137-145); Total Protein 6.6 g/dL (6.3-8.2)
[2018-09-01] MEDS ORDERED: HYDROmorphone 0.5 MG/0.5 ML SYRINGE IVP STA (18:24)
[2018-09-01] MEDS ORDERED: HYDROmorphone 1 MG/ML 1 ML SYRINGE IVP STA (18:34)
--- NOTE | 2018-09-01 18:37 | XR ---
EXAMINATION TYPE: XR KUB-2 views DATE OF EXAM: 09/01/2018 COMPARISON: 08/18/2018 HISTORY: Pain TECHNIQUE: 2 upright views FINDINGS: There is no pneumoperitoneum or pneumatosis. The bowel gas pattern is normal. The visualized lung bases and pleural spaces are negative for definite acute findings. No definite acute abdominopelvic soft tissue or skeletal findings. IMPRESSION: Negative examination.
--- NOTE | 2018-09-01 20:24 | CT ---
EXAMINATION TYPE: CT abdomen pelvis w con DATE OF EXAM: 09/01/2018 COMPARISON: CT 08/24/2018 HISTORY: Lower abdominal pain CT DLP: 1319 mGycm Automated exposure control for dose reduction was used. TECHNIQUE: Helical acquisition of images was performed from the lung bases through the pelvis. CONTRAST: Performed without Oral Contrast and with IV Contrast, patient injected with 100ml mL of Isovue 300. FINDINGS: LUNG BASES: Moderate cardiomegaly with panchamber enlargement and marked coronary calcifications. LIVER/GB: No significant abnormality is appreciated. Multifocal hepatic cysts redemonstrated. PANCREAS: No significant abnormality is seen. SPLEEN: No significant abnormality is seen. ADRENALS: No significant abnormality is seen. KIDNEYS: No significant abnormality is seen. PERITONEAL CAVITY: No free air is visualized. ABDOMINAL ADENOPATHY: None visualized REPRODUCTIVE ORGANS: No significant abnormality is seen KIDNEYS AND URETERS AND URINARY BLADDER: Urinary bladder is moderately-marked distended - rising bertrand ost to the level of the umbilicus. Redemonstrated numerous bladder calcifications, associated with bl adder wall thickening; concurrent mucosal lesion can only be excluded clinically. Multifocal bladder wall calcifications are redemonstrated, as is massive prostate enlargement. Differential for multifoc al bladder wall calcifications includes schistosomiasis, but the calcifications are usually secondary to long-term bladder outlet obstruction. The kidneys and upper and lower collecting systems are unremarkable. PELVIC ADENOPATHY: None visualized. OSSEOUS STRUCTURES: No significant abnormality is seen. BOWEL: No significant abnormality is seen. VASCULATURE: No acute findings. However, nonaneurysmal generalized atherosclerotic changes are seen t hroughout the visualized arterial anatomy. IMPRESSION: 1. NO DEFINITE ACUTE PROCESS. 2. URINARY BLADDER FINDINGS DISCUSSED.
[2018-09-01 20:28] LABS: Appearance,Urine Cloudy (Clear); Bilirubin,Urine Negative (Negative); Blood,Urine Moderate (Negative); Color,Urine Yellow; Glucose,Urine (UA) Negative (Negative); Hyaline Casts,Urine 4 /lpf (0-2); Ketones,Urine Negative (Negative); Leukocyte Esterase,Urine Small (Negative); Mucus,Urine Few /hpf; Nitrite,Urine Negative (Negative); PH, Urine 5.5 (5.0-8.0); Protein,Urine Trace (Negative); RBC,Urine 24 /hpf (0-5); Urobilinogen,Urine <2.0 mg/dL (<2.0); WBC,Urine 18 /hpf (0-5)
[2018-09-01 21:08] LABS: Specific Gravity,Urine >1.050 (1.001-1.035)
[2018-09-01 22:35] VITALS: TEMP 98.8
[2018-09-01] MEDS ORDERED: MORPHINE SULFATE 4 MG/ML SYRINGE IVP STA (22:35)
[2018-09-01] MEDS ORDERED: HYOSCYAMINE SULFATE 0.125 MG TAB PO STA (23:16)
[2018-09-02 00:29] VITALS: BP 189/84; PULSE 51; RESP 18
== END 2018-09-02 01:00 | disposition home or self-care (01) ==
LOC: EC 16:44
DX: N21.0 Calculus in bladder (principal); R33.9 Retention of urine, unspecified; N42.9 Disorder of prostate, unspecified; Z86.711 Personal history of pulmonary embolism; Z86.718 Personal history of other venous thrombosis and embolism; Z90.49 Acquired absence of other specified parts of digestive tract; Z95.5 Presence of coronary angioplasty implant and graft; Z98.890 Other specified postprocedural states; Z79.899 Other long term (current) drug therapy
CPT/HCPCS: 51798; 36415; 80053; 82150; 83605; 83690; 85025; 85610; 85730; 81001; 87086; 74018; 74177; 99285; 51702; 96374; 96375 ×2; 96376; 96361 ×7; J2270 ×2; J2405; J1170; Q9967

== ENCOUNTER 2018-09-09 09:50 | Emergency (ER) | payer MEDICARE ==
[2018-09-09 09:55] VITALS: RESP 18
--- NOTE | 2018-09-09 10:21 | ED ---
General Adult HPI - General Chief complaint: Urogenital Stated complaint: URINE RETENTION Source: patient Mode of arrival: wheelchair Limitations: no limitations - History of Present Illness Initial comments: Dictation was produced using [employer] dictation software. please excuse any grammatical, word or spelling errors. Chief Complaint: 78-year-old male past medical history of heart failure, DVT, pneumonia, prostate disorder presents with urinary retention. History of Present Illness: She is 78-year-old male with multiple comorbidities. He has a history of prostate disease. Patient had a fully catheter placed approximately one week ago for urinary retention. He was seen by his outpatient urologist who recommended that patient keep the Hair catheter in place until the 14 of this month for possible removal. Patient has a history of prostatic disease. Patient reports that he normally drinks his Hair catheter bag 3-4 times a day. The last time he emptied his bag was approximately 8 PM last night. He does complain of suprapubic fullness. The ROS documented in this emergency department record has been reviewed and confirmed by me. Those systems with pertinent positive or negative responses have been documented in the HPI. All other systems are other negative and/or noncontributory. - Related Data Home Medications Medication Instructions Recorded Confirmed Finasteride [Proscar] 5 mg PO DAILY 02/21/18 09/09/18 Gabapentin [Neurontin] 300 mg PO TID 08/24/18 09/09/18 Loratadine [Claritin] 10 mg PO DAILY PRN 08/24/18 09/09/18 Tamsulosin [Flomax] 0.4 mg PO BID 09/09/18 09/09/18 Previous Rx's Medication Instructions Recorded Aspirin 81 mg PO DAILY #30 chew 02/24/18 Atorvastatin [Lipitor] 80 mg PO HS #30 tab 02/24/18 Clopidogrel [Plavix] 75 mg PO DAILY #30 tab 02/24/18 Furosemide [Lasix] 40 mg PO DAILY #30 tablet 02/24/18 Lisinopril [Zestril] 5 mg PO DAILY #30 tab 02/24/18 Nitroglycerin Sl Tabs [Nitrostat] 0.4 mg SUBLINGUAL Q5M PRN #30 tab 02/24/18 Allergies Allergy/AdvReac Type Severity Reaction Status Date / Time No Known Allergies Allergy Verified 10/10/18 10:14 Review of Systems ROS Statement: Those systems with pertinent positive or pertinent negative responses have been documented in the HPI. ROS Other: All systems not noted in ROS Statement are negative. Past Medical History Past Medical History: Heart Failure, Deep Vein Thrombosis (DVT), Pneumonia, Prostate Disorder, Pulmonary Embolus (PE) History of Any Multi-Drug Resistant Organisms: None Reported Past Surgical History: Appendectomy, Heart Catheterization, Heart Catheterization With Stent Additional Past Surgical History / Comment(s): Bladder stone removal Past Anesthesia/Blood Transfusion Reactions: No Reported Reaction Date of Last Stent Placement:: January 2018 Past Psychological History: No Psychological Hx Reported Smoking Status: Never smoker Past Alcohol Use History: None Reported Past Drug Use History: None Reported General Exam - General Exam Comments Initial Comments: PHYSICAL EXAM: General Impression: Alert and oriented x3, not in acute distress HEENT: Normocephalic atraumatic, extra-ocular movements intact, pupils equal and reactive to light bilaterally, mucous membranes moist. Cardiovascular: Heart regular rate and rhythm, S1&S2 audible, no murmurs, rubs or gallops Chest: Lungs clear to auscultation bilaterally, no rhonchi, no wheeze, no rales Abdomen: Mild tenderness to suprapubic region Musculoskeletal: Pulses present and equal in all extremities, no peripheral edema Motor: Power 5/5 bilaterally, no focal deficits noted Neurological: CN II-XII grossly intact, no focal motor or sensory deficits noted Skin: Intact with no visualized rashes Psych: Normal affect and mood Limitations: no limitations Course Vital Signs 09/09/18 09/09/18 09:51 12:19 Temperature 97.8 F 98.1 F Pulse Rate 62 51 L Respiratory 18 18 Rate Blood Pressure 154/71 152/78 O2 Sat by Pulse 95 98 Oximetry Medical Decision Making - Medical Decision Making ED course: 78-year-old male with past medical history prosthetic disease along with multiple other comorbidities presents with concerns of urinary retention. Signs upon arrival are within acceptable limits. Patient is no acute distress. He does have some suprapubic tenderness and fullness. Bladder scan showed retention of approximately 450 mL of urine. We'll attempt was made by myself and nurses to place Hair catheter. We were unsuccessful. Urology was consulted who placed Hair catheter. Urology recommends discharge with follow- up to outpatient neurology. Laboratory evaluation obtained showing no signs of renal failure. Pending urinalysis. Patient to be discharged. He still to follow-up with urine culture results in 2 days for follow-up of urine culture results or to possible need for antibiotics. No clear indication for antibiotics given that patient had traumatic Hair catheter placement. - Lab Data Result diagrams: 09/09/18 10:51 Lab Results 09/09/18 Range/Units 10:51 Sodium 145 (137-145) mmol/L Potassium 3.6 (3.5-5.1) mmol/L Chloride 107 (98-107) mmol/L Carbon Dioxide 30 (22-30) mmol/L Anion Gap 8 mmol/L BUN 37 H (9-20) mg/dL Creatinine 1.05 (0.66-1.25) mg/dL Est GFR (CKD-EPI)AfAm 79 (>60 ml/min/1.73 sqM) Est GFR (CKD-EPI)NonAf 68 (>60 ml/min/1.73 sqM) Glucose 98 (74-99) mg/dL Calcium 9.0 (8.4-10.2) mg/dL Disposition Clinical Impression: Urinary retention Disposition: HOME SELF-CARE Condition: Good Instructions: Urinary Retention in Men (ED) Is patient prescribed a controlled substance at d/c from ED?: No Referrals: Trino Muñoz MD [Primary Care Provider] - 1-2 days Cam Ryan MD [STAFF PHYSICIAN] - 1-2 days Time of Disposition: 13:14
[2018-09-09 11:51] LABS: Potassium 3.6 mmol/L (3.5-5.1)
--- NOTE | 2018-09-09 12:45 | P.GSCN ---
History of Present Illness Consult date: 09/09/18 History of present illness: The patient is a 78-year-old gentleman in urinary retention. This is gone on a few weeks. He was seen by Dr. Wendie Mckee at [facility] and placed on intermittent catheterization. He had problems with that and last Friday had an indwelling catheter. The indwelling catheter is at work since last night. For that reason he came in the emergency room. In the emergency room the nursing staff was unable irrigate or replace the catheter. I've been asked to see the patient. The patient was seen by me last spring for urine retention while in the hospital for pulmonary edema. He ended up following at [facility] with his urologist there that he is seen for many years. Apparently the patient has bladder stones. I reviewed his computed tomography scan here and indeed he does. He does have a notably enlarged prostate. I will change his catheter. He did have stopped cardiac stents placed in January. Review of Systems - Constitutional Reports chronic pain, Reports lethargy Past Medical History Past Medical History: Heart Failure, Deep Vein Thrombosis (DVT), Pneumonia, Prostate Disorder, Pulmonary Embolus (PE) History of Any Multi-Drug Resistant Organisms: None Reported Past Surgical History: Appendectomy, Heart Catheterization, Heart Catheterization With Stent Additional Past Surgical History / Comment(s): Bladder stone removal Past Anesthesia/Blood Transfusion Reactions: No Reported Reaction Date of Last Stent Placement:: January 2018 Past Psychological History: No Psychological Hx Reported Smoking Status: Never smoker Past Alcohol Use History: None Reported Past Drug Use History: None Reported Medications and Allergies Home Medications Medication Instructions Recorded Confirmed Type Finasteride [Proscar] 5 mg PO DAILY 02/21/18 09/09/18 History Aspirin 81 mg PO DAILY #30 chew 02/24/18 09/09/18 Rx Atorvastatin [Lipitor] 80 mg PO HS #30 tab 02/24/18 09/09/18 Rx Clopidogrel [Plavix] 75 mg PO DAILY #30 tab 02/24/18 09/09/18 Rx Furosemide [Lasix] 40 mg PO DAILY #30 tablet 02/24/18 09/09/18 Rx Lisinopril [Zestril] 5 mg PO DAILY #30 tab 02/24/18 09/09/18 Rx Nitroglycerin Sl Tabs [Nitrostat] 0.4 mg SUBLINGUAL Q5M PRN #30 tab 02/24/1809/17 Rx Gabapentin [Neurontin] 300 mg PO TID 08/24/18 09/09/18 History Loratadine [Claritin] 10 mg PO DAILY PRN 08/24/18 09/09/18 History Tamsulosin [Flomax] 0.4 mg PO BID 09/09/18 09/09/18 History Allergies Allergy/AdvReac Type Severity Reaction Status Date / Time No Known Allergies Allergy Verified 09/09/18 10:14 Surgical - Exam Vital Signs Temp Pulse Resp BP Pulse Ox 97.8 F 62 18 154/71 95 09/09/18 09:51 09/09/18 09:51 09/09/18 09:51 09/09/18 09:51 09/09/18 09:51 - General well developed, well nourished, no distress - Eyes PERRL - ENT no hearing loss - Neck no masses - Respiratory normal expansion, normal respiratory effort - Abdomen Abdomen: soft, non tender - Genitourinary normal penis with no external lesions, testicles present - Integumentary no rash, no growths - Neurologic normal coordination, normal sensation - Musculoskeletal normal posture - Psychiatric oriented to time, oriented to person, oriented to place, speech is normal, memory intact Results - Labs 09/09/18 10:51 Abnormal Lab Results - Last 24 Hours (Table) 09/09/18 Range/Units 10:51 BUN 37 H (9-20) mg/dL Diabetes panel 09/09/18 Range/Units 10:51 Sodium 145 (137-145) mmol/L Potassium 3.6 (3.5-5.1) mmol/L Chloride 107 (98-107) mmol/L Carbon Dioxide 30 (22-30) mmol/L BUN 37 H (9-20) mg/dL Creatinine 1.05 (0.66-1.25) mg/dL Glucose 98 (74-99) mg/dL Calcium 9.0 (8.4-10.2) mg/dL Calcium panel 09/09/18 Range/Units 10:51 Calcium 9.0 (8.4-10.2) mg/dL Pituitary panel 09/09/18 Range/Units 10:51 Sodium 145 (137-145) mmol/L Potassium 3.6 (3.5-5.1) mmol/L Chloride 107 (98-107) mmol/L Carbon Dioxide 30 (22-30) mmol/L BUN 37 H (9-20) mg/dL Creatinine 1.05 (0.66-1.25) mg/dL Glucose 98 (74-99) mg/dL Calcium 9.0 (8.4-10.2) mg/dL Adrenal panel 09/09/18 Range/Units 10:51 Sodium 145 (137-145) mmol/L Potassium 3.6 (3.5-5.1) mmol/L Chloride 107 (98-107) mmol/L Carbon Dioxide 30 (22-30) mmol/L BUN 37 H (9-20) mg/dL Creatinine 1.05 (0.66-1.25) mg/dL Glucose 98 (74-99) mg/dL Calcium 9.0 (8.4-10.2) mg/dL - Imaging CT scan - abdomen: report reviewed, image reviewed CT scan - pelvis: report reviewed, image reviewed Assessment and Plan Assessment: Impression: Urine retention secondary to enlarged prostate. Bladder stone secondary to urine retention and large prostate. Cardiac disease. Recommendations replace Hair catheter.
--- NOTE | 2018-09-09 12:46 | P.PCN ---
Date of Procedure: 09/09/18 Preoperative Diagnosis: Urine retention secondary to enlarged prostate, inability to replace catheter Postoperative Diagnosis: Same Procedure(s) Performed: Difficult catheterization Anesthesia: local Surgeon: Cam Ryan Estimated Blood Loss (ml): 0 Indications for Procedure: The patient has been in urine retention. He has an indwelling catheter that is unable to drain. The nursing staff is been unable to irrigate it or exchange it. I will place a catheter. Description of Procedure: The patient is prepped and draped sterilely. A 16 coud-tip catheters passed into the bladder. The prostate is enlarged noted by the amount of catheter emanating from the bladder. It then irrigate freely with a 16 coud-tip catheter.
--- NOTE | 2018-09-09 12:47 | P.PN ---
Subjective Progress Note Date: 09/09/18 The patient can be discharged home. He'll go home with an indwelling catheter. I'll make an appointment for him to see me here in [place] next week as he prefers not to go down to [place]. We'll proceed with assessment for possible lower urinary tract prostate workup. We'll have to discuss with Dr. Alejo when it is appropriate with regards to his cardiac status. Objective - Vital Signs Vital signs: Vital Signs Temp 98.1 F 09/09/18 12:19 Pulse 51 L 09/09/18 12:19 Resp 18 09/09/18 12:19 BP 152/78 09/09/18 12:19 Pulse Ox 98 09/09/18 12:19 Intake & Output 09/08/18 09/09/18 09/09/18 18:59 06:59 18:59 Weight 90.718 kg - Labs CBC & Chem 7: 09/09/18 10:51 Labs: Abnormal Lab Results - Last 24 Hours (Table) 09/09/18 Range/Units 10:51 BUN 37 H (9-20) mg/dL
[2018-09-09 14:42] VITALS: BP 159/83; PULSE 50; TEMP 98.5
== END 2018-09-09 14:41 | disposition home or self-care (01) ==
LOC: EC 09:50
DX: R33.9 Retention of urine, unspecified (principal); I50.9 Heart failure, unspecified; N42.9 Disorder of prostate, unspecified; Z86.73 Personal history of transient ischemic attack (TIA), and cerebral infarction without residual deficits; Z86.711 Personal history of pulmonary embolism; Z87.01 Personal history of pneumonia (recurrent); Z90.49 Acquired absence of other specified parts of digestive tract; Z95.5 Presence of coronary angioplasty implant and graft; Z98.890 Other specified postprocedural states; Z79.899 Other long term (current) drug therapy
CPT/HCPCS: 36415; 51702; 80048; 99284

== ENCOUNTER 2018-09-24 02:46 | Emergency (ER) | payer MEDICARE ==
[2018-09-24 03:08] VITALS: BP 144/69; PULSE 57; RESP 20; TEMP 97.7
--- NOTE | 2018-09-24 03:49 | ED ---
Male Urogenital HPI - General Chief complaint: Urogenital Stated complaint: Male Time Seen by Provider: 09/24/18 03:08 Source: patient Mode of arrival: ambulatory Limitations: no limitations - History of Present Illness Initial comments: This patient is 78-year-old man who presents to be evaluated for a problem with his indwelling Hair catheter. The patient states that he stopped having drainage and is having an intense urge to urinate as well as suprapubic pressure type pain. He denied any preceding fever or chills. No other symptoms. MD Complaint: other -: hour(s) Location: abdomen (Suprapubic) Severity: moderate Quality: other (Sure) Consistency: constant Improves with: none Worsens with: palpation indwelling catheter Reports: blood in urine - Related Data Home Medications Medication Instructions Recorded Confirmed Finasteride [Proscar] 5 mg PO DAILY 02/21/18 09/24/18 Gabapentin [Neurontin] 300 mg PO TID 08/24/18 09/24/18 Loratadine [Claritin] 10 mg PO DAILY PRN 08/24/18 09/24/18 Tamsulosin [Flomax] 0.4 mg PO BID 09/09/18 09/24/18 Previous Rx's Medication Instructions Recorded Aspirin 81 mg PO DAILY #30 chew 02/24/18 Atorvastatin [Lipitor] 80 mg PO HS #30 tab 02/24/18 Clopidogrel [Plavix] 75 mg PO DAILY #30 tab 02/24/18 Furosemide [Lasix] 40 mg PO DAILY #30 tablet 02/24/18 Lisinopril [Zestril] 5 mg PO DAILY #30 tab 02/24/18 Nitroglycerin Sl Tabs [Nitrostat] 0.4 mg SUBLINGUAL Q5M PRN #30 tab 02/24/18 Allergies Allergy/AdvReac Type Severity Reaction Status Date / Time No Known Allergies Allergy Verified 09/09/18 10:14 Review of Systems ROS Statement: Those systems with pertinent positive or pertinent negative responses have been documented in the HPI. ROS Other: All systems not noted in ROS Statement are negative. Constitutional: Denies: fever, chills Respiratory: Denies: cough, dyspnea Cardiovascular: Denies: chest pain, palpitations, edema Gastrointestinal: Reports: as per HPI, abdominal pain Genitourinary: Reports: as per HPI Musculoskeletal: Denies: back pain Skin: Denies: rash Past Medical History Past Medical History: Heart Failure, Deep Vein Thrombosis (DVT), Pneumonia, Prostate Disorder, Pulmonary Embolus (PE) History of Any Multi-Drug Resistant Organisms: None Reported Past Surgical History: Appendectomy, Heart Catheterization, Heart Catheterization With Stent Additional Past Surgical History / Comment(s): Bladder stone removal Past Anesthesia/Blood Transfusion Reactions: No Reported Reaction Date of Last Stent Placement:: January 2018 Past Psychological History: No Psychological Hx Reported Smoking Status: Never smoker Past Alcohol Use History: None Reported Past Drug Use History: None Reported General Exam Limitations: no limitations General appearance: alert, in no apparent distress Head exam: Present: atraumatic, normocephalic Respiratory exam: Present: normal lung sounds bilaterally. Absent: respiratory distress, wheezes, rales, rhonchi, stridor Cardiovascular Exam: Present: regular rate, normal rhythm, normal heart sounds. Absent: systolic murmur, diastolic murmur, rubs, gallop GI/Abdominal exam: Present: soft, tenderness, guarding, other (The patient has suprapubic fullness and guarding, consistent with bladder) exam: Present: other (Hair catheter present) Extremities exam: Present: normal inspection Back exam: Absent: CVA tenderness (R), CVA tenderness (L) Skin exam: Present: warm, dry, intact, normal color. Absent: rash Course Vital Signs 09/24/18 03:03 Temperature 97.7 F Pulse Rate 57 L Respiratory 20 Rate Blood Pressure 144/69 O2 Sat by Pulse 96 Oximetry Medical Decision Making - Medical Decision Making Patient's Hair catheter was irrigated by nursing staff and then he did have drainage. The patient had resolution of his symptoms, stating he feels better and wants go home. Will follow with urology, we discussed return parameters. Disposition Clinical Impression: Hair catheter problem Disposition: HOME SELF-CARE Condition: Good Instructions: Urinary Retention in Men (ED) Is patient prescribed a controlled substance at d/c from ED?: No Referrals: Trino Muñoz MD [Primary Care Provider] - 1-2 days Cam Ryan MD [STAFF PHYSICIAN] - 1-2 days
--- NOTE | 2018-09-25 06:05 | CDI ---
Documentation Clarification OP Dear Dr. Paxton Sears Please do addendum to ED report for missing HPI and Physical examination. Thank you, Karena Rose [employer] If you have any questions, please contact [employer] at [phone] [facility]
== END 2018-09-24 03:56 | disposition home or self-care (01) ==
LOC: EC 02:46
DX: T83.098A Other mechanical complication of other urinary catheter, initial encounter (principal); R39.15 Urgency of urination; R31.9 Hematuria, unspecified; Z87.438 Personal history of other diseases of male genital organs; Z90.49 Acquired absence of other specified parts of digestive tract; Z95.5 Presence of coronary angioplasty implant and graft; Z95.818 Presence of other cardiac implants and grafts; Z79.899 Other long term (current) drug therapy; Y84.6 Urinary catheterization as the cause of abnormal reaction of the patient, or of later complication, without mention of misadventure at the time of the procedure
CPT/HCPCS: 99283

== ENCOUNTER → 2018-10-16 | Outpatient (CLI) | payer MEDICARE ==
--- NOTE | 2018-10-16 12:23 | US ---
EXAMINATION TYPE: US kidneys/renal and bladder DATE OF EXAM: 10/16/2018 COMPARISON: CT 2018 CLINICAL HISTORY: N40.1 BPH. BPH, history of kidney stones EXAM MEASUREMENTS: Right Kidney: 10.1 x 4.7 x 5.2 cm Left Kidney: 10.8 x 6.1 x 4.5 cm Right Kidney: 2.3 x 1.9 x 2.2cm cyst inferior pole Left Kidney: 0.5cm echogenic focus inferior pole Bladder: limited evaluation, not fully distended, peralta catheter in place Liver: 5.0 x 4.3 x 4.1cm cyst right lobe Prostate: enlarged at 5.7 x 4.7 x 6.2cm IMPRESSION: 1. 5 mm nonobstructing left lower renal calculus. 2. 2.3 cm right renal cyst. 3. Prostate is enlarged and heterogeneous correlate clinically. 4. Incidental note made of a hepatic cyst. 5. Bladder is decompressed containing a Peralta catheter and not adequately evaluated by ultrasound
--- NOTE | 2018-10-16 12:36 | US ---
EXAMINATION TYPE: US prostate transrectal DATE OF EXAM: 10/16/2018 COMPARISON: CT 2018 CLINICAL HISTORY: N40.1 BPH. BPH This examination was performed using the transrectal probe. EXAM MEASUREMENTS: Gland Size: 7.0 x 5.2 x 6.8cm Volume: 128.1ml Predicted PSA: 15.4 Enlarged heterogeneous gland without any definite lesions seen at this time. IMPRESSION: Prostate glandular enlargement without suspicious lesion identified. Predicted PSA = volume x 0.12 ng/ml Calculated Volume = 0.5236 x L x W x H
== END | disposition home or self-care (01) ==
LOC: RADUSMAIN 11:20
PROVIDERS: ATTEND Urology
DX: N40.0 Benign prostatic hyperplasia without lower urinary tract symptoms (principal); N20.0 Calculus of kidney; N28.1 Cyst of kidney, acquired; N32.89 Other specified disorders of bladder
CPT/HCPCS: 76770; 76872

== ENCOUNTER 2019-02-16 06:51 | Inpatient (IN) | payer MEDICARE ==
[2019-02-16] MEDS ORDERED: ACETAMINOPHEN TAB 500 MG TAB PO STA (07:26)
--- NOTE | 2019-02-16 07:29 | ED ---
General Adult HPI - General Chief complaint: Chest Pain Stated complaint: Chest Pain Time Seen by Provider: 02/16/19 07:03 Source: patient, RN notes reviewed Mode of arrival: wheelchair Limitations: no limitations - History of Present Illness Initial comments: Patient is a pleasant 78-year-old male presenting to the emergency department with fever and chest discomfort. Patient had some chest discomfort around midnight. Patient has had subjective fever since this morning. Patient does agree that he feels somewhat short of breath. No significant cough. No history of chronic lung problems. Patient did have cardiac stent placement around 1 month ago. Patient was recently placed on Macrobid for urinary tract infection approximately 3 days ago. - Related Data Home Medications Medication Instructions Recorded Confirmed Gabapentin [Neurontin] 300 mg PO TID 08/24/18 02/16/19 Loratadine [Claritin] 10 mg PO DAILY PRN 08/24/18 02/16/19 Tamsulosin [Flomax] 0.4 mg PO BID 09/09/18 02/16/19 Nitrofurantoin Monohyd/M-Cryst 100 mg PO Q12HR 02/16/19 02/16/19 [Macrobid] Previous Rx's Medication Instructions Recorded Aspirin 81 mg PO DAILY #30 chew 02/24/18 Atorvastatin [Lipitor] 80 mg PO HS #30 tab 02/24/18 Clopidogrel [Plavix] 75 mg PO DAILY #30 tab 02/24/18 Nitroglycerin Sl Tabs [Nitrostat] 0.4 mg SUBLINGUAL Q5M PRN #30 tab 02/24/18 Allergies Allergy/AdvReac Type Severity Reaction Status Date / Time No Known Allergies Allergy Verified 02/16/19 08:18 Review of Systems ROS Statement: Those systems with pertinent positive or pertinent negative responses have been documented in the HPI. ROS Other: All systems not noted in ROS Statement are negative. Constitutional: Reports: fever, chills Eyes: Denies: eye pain ENT: Denies: ear pain Respiratory: Reports: dyspnea Cardiovascular: Reports: chest pain Endocrine: Reports: fatigue Gastrointestinal: Denies: abdominal pain Genitourinary: Denies: dysuria Musculoskeletal: Denies: back pain Skin: Denies: rash Neurological: Denies: weakness Past Medical History Past Medical History: Heart Failure, Deep Vein Thrombosis (DVT), Pneumonia, Prostate Disorder, Pulmonary Embolus (PE) History of Any Multi-Drug Resistant Organisms: None Reported Past Surgical History: Appendectomy, Heart Catheterization, Heart Catheterization With Stent, Prostate Surgery Additional Past Surgical History / Comment(s): Bladder stone removal Past Anesthesia/Blood Transfusion Reactions: No Reported Reaction Date of Last Stent Placement:: January 2018 Past Psychological History: No Psychological Hx Reported Smoking Status: Never smoker Past Alcohol Use History: None Reported Past Drug Use History: None Reported General Exam Limitations: no limitations General appearance: alert Head exam: Present: atraumatic Eye exam: Present: normal appearance, PERRL ENT exam: Present: mucous membranes dry Neck exam: Present: normal inspection Respiratory exam: Present: normal lung sounds bilaterally Cardiovascular Exam: Present: regular rate, normal rhythm GI/Abdominal exam: Present: soft. Absent: tenderness Extremities exam: Present: pedal edema (Trace bilateral). Absent: calf tenderness Back exam: Present: normal inspection Neurological exam: Present: alert Psychiatric exam: Present: normal affect, normal mood Skin exam: Present: normal color Course Vital Signs 02/16/19 02/16/19 02/16/19 06:53 07:07 07:17 Temperature 98.5 F 101.6 F H Pulse Rate 91 86 Respiratory 22 45 H Rate Blood Pressure 167/77 O2 Sat by Pulse 91 L 86 L Oximetry 02/16/19 02/16/19 02/16/19 07:30 07:41 08:00 Temperature Pulse Rate 78 82 84 Respiratory 45 H 30 H 43 H Rate Blood Pressure 157/68 151/84 151/84 O2 Sat by Pulse 95 98 93 L Oximetry 02/16/19 02/16/19 02/16/19 08:30 09:00 09:30 Temperature Pulse Rate 85 82 79 Respiratory 15 39 H 39 H Rate Blood Pressure 150/78 157/84 132/64 O2 Sat by Pulse 89 L 96 98 Oximetry 02/16/19 09:49 Temperature 98.6 F Pulse Rate Respiratory Rate Blood Pressure O2 Sat by Pulse Oximetry EKG Findings - EKG Comments: EKG Findings:: Sinus rhythm with an 89. NC 166. QRS 122. QT 410. QTc 498. Left axis. LVH. Repolarization changes. Medical Decision Making - Medical Decision Making Patient reevaluated and somewhat improved. Patient still appears somewhat short of breath following fever control. D-dimer will be added. Patient and family updated. Dr. Dubon has been paged for admission for Dr. camara. - Lab Data Result diagrams: 02/16/19 07:10 02/16/19 07:10 Lab Results 02/16/19 02/16/19 02/16/19 Range/Units 07:10 07:10 07:10 WBC 15.3 H (3.8-10.6) k/uL RBC 3.89 L (4.30-5.90) m/uL Hgb 11.0 L (13.0-17.5) gm/dL Hct 33.8 L (39.0-53.0) % MCV 87.1 (80.0-100.0) fL MCH 28.2 (25.0-35.0) pg MCHC 32.4 (31.0-37.0) g/dL RDW 15.6 H (11.5-15.5) % Plt Count 221 (150-450) k/uL Neutrophils % 91 % Lymphocytes % 3 % Monocytes % 4 % Eosinophils % 1 % Basophils % 0 % Neutrophils # 13.9 H (1.3-7.7) k/uL Lymphocytes # 0.5 L (1.0-4.8) k/uL Monocytes # 0.6 (0-1.0) k/uL Eosinophils # 0.2 (0-0.7) k/uL Basophils # 0.0 (0-0.2) k/uL PT (9.0-12.0) sec INR (<1.2) APTT (22.0-30.0) sec Sodium 143 (137-145) mmol/L Potassium 3.7 (3.5-5.1) mmol/L Chloride 106 (98-107) mmol/L Carbon Dioxide 27 (22-30) mmol/L Anion Gap 10 mmol/L BUN 31 H (9-20) mg/dL Creatinine 1.05 (0.66-1.25) mg/dL Est GFR (CKD-EPI)AfAm 79 (>60 ml/min/1.73 sqM) Est GFR (CKD-EPI)NonAf 68 (>60 ml/min/1.73 sqM) Glucose 149 H (74-99) mg/dL Plasma Lactic Acid Jensen (0.7-2.0) mmol/L Calcium 9.2 (8.4-10.2) mg/dL Total Bilirubin 1.5 H (0.2-1.3) mg/dL AST 22 (17-59) U/L ALT 26 (21-72) U/L Alkaline Phosphatase 88 (38-126) U/L Creatine Kinase 239 H (55-170) U/L CK-MB (CK-2) 1.8 (0.0-2.4) ng/mL Troponin I 0.067 H* (0.000-0.034) ng/mL NT-Pro-B Natriuret Pep pg/mL Total Protein 7.4 (6.3-8.2) g/dL Albumin 4.1 (3.5-5.0) g/dL Urine Color Urine Appearance (Clear) Urine pH (5.0-8.0) Ur Specific [place] (1.001-1.035) Urine Protein (Negative) Urine Glucose (UA) (Negative) Urine Ketones (Negative) Urine Blood (Negative) Urine Nitrite (Negative) Urine Bilirubin (Negative) Urine Urobilinogen (<2.0) mg/dL Ur Leukocyte Esterase (Negative) Urine RBC (0-5) /hpf Urine WBC (0-5) /hpf Urine WBC Clumps (None) /hpf Hyaline Casts (0-2) /lpf Urine Mucus (None) /hpf Influenza Type A RNA (Not Detectd) Influenza Type B (PCR) (Not Detectd) 02/16/19 02/16/19 02/16/19 Range/Units 07:10 07:10 07:10 WBC (3.8-10.6) k/uL RBC (4.30-5.90) m/uL Hgb (13.0-17.5) gm/dL Hct (39.0-53.0) % MCV (80.0-100.0) fL MCH (25.0-35.0) pg MCHC (31.0-37.0) g/dL RDW (11.5-15.5) % Plt Count (150-450) k/uL Neutrophils % % Lymphocytes % % Monocytes % % Eosinophils % % Basophils % % Neutrophils # (1.3-7.7) k/uL Lymphocytes # (1.0-4.8) k/uL Monocytes # (0-1.0) k/uL Eosinophils # (0-0.7) k/uL Basophils # (0-0.2) k/uL PT 12.6 H (9.0-12.0) sec INR 1.2 H (<1.2) APTT 24.0 (22.0-30.0) sec Sodium (137-145) mmol/L Potassium (3.5-5.1) mmol/L Chloride (98-107) mmol/L Carbon Dioxide (22-30) mmol/L Anion Gap mmol/L BUN (9-20) mg/dL Creatinine (0.66-1.25) mg/dL Est GFR (CKD-EPI)AfAm (>60 ml/min/1.73 sqM) Est GFR (CKD-EPI)NonAf (>60 ml/min/1.73 sqM) Glucose (74-99) mg/dL Plasma Lactic Acid Jensen 1.8 (0.7-2.0) mmol/L Calcium (8.4-10.2) mg/dL Total Bilirubin (0.2-1.3) mg/dL AST (17-59) U/L ALT (21-72) U/L Alkaline Phosphatase (38-126) U/L Creatine Kinase (55-170) U/L CK-MB (CK-2) (0.0-2.4) ng/mL Troponin I (0.000-0.034) ng/mL NT-Pro-B Natriuret Pep pg/mL Total Protein (6.3-8.2) g/dL Albumin (3.5-5.0) g/dL Urine Color Urine Appearance (Clear) Urine pH (5.0-8.0) Ur Specific [place] (1.001-1.035) Urine Protein (Negative) Urine Glucose (UA) (Negative) Urine Ketones (Negative) Urine Blood (Negative) Urine Nitrite (Negative) Urine Bilirubin (Negative) Urine Urobilinogen (<2.0) mg/dL Ur Leukocyte Esterase (Negative) Urine RBC (0-5) /hpf Urine WBC (0-5) /hpf Urine WBC Clumps (None) /hpf Hyaline Casts (0-2) /lpf Urine Mucus (None) /hpf Influenza Type A RNA Not Detected (Not Detectd) Influenza Type B (PCR) Not Detected (Not Detectd) 02/16/19 02/16/19 Range/Units 07:10 09:32 WBC (3.8-10.6) k/uL RBC (4.30-5.90) m/uL Hgb (13.0-17.5) gm/dL Hct (39.0-53.0) % MCV (80.0-100.0) fL MCH (25.0-35.0) pg MCHC (31.0-37.0) g/dL RDW (11.5-15.5) % Plt Count (150-450) k/uL Neutrophils % % Lymphocytes % % Monocytes % % Eosinophils % % Basophils % % Neutrophils # (1.3-7.7) k/uL Lymphocytes # (1.0-4.8) k/uL Monocytes # (0-1.0) k/uL Eosinophils # (0-0.7) k/uL Basophils # (0-0.2) k/uL PT (9.0-12.0) sec INR (<1.2) APTT (22.0-30.0) sec Sodium (137-145) mmol/L Potassium (3.5-5.1) mmol/L Chloride (98-107) mmol/L Carbon Dioxide (22-30) mmol/L Anion Gap mmol/L BUN (9-20) mg/dL Creatinine (0.66-1.25) mg/dL Est GFR (CKD-EPI)AfAm (>60 ml/min/1.73 sqM) Est GFR (CKD-EPI)NonAf (>60 ml/min/1.73 sqM) Glucose (74-99) mg/dL Plasma Lactic Acid Jensen (0.7-2.0) mmol/L Calcium (8.4-10.2) mg/dL Total Bilirubin (0.2-1.3) mg/dL AST (17-59) U/L ALT (21-72) U/L Alkaline Phosphatase (38-126) U/L Creatine Kinase (55-170) U/L CK-MB (CK-2) (0.0-2.4) ng/mL Troponin I (0.000-0.034) ng/mL NT-Pro-B Natriuret Pep 2530 pg/mL Total Protein (6.3-8.2) g/dL Albumin (3.5-5.0) g/dL Urine Color Yellow Urine Appearance Turbid (Clear) Urine pH 5.0 (5.0-8.0) Ur Specific [place] 1.013 (1.001-1.035) Urine Protein 1+ H (Negative) Urine Glucose (UA) Negative (Negative) Urine Ketones Negative (Negative) Urine Blood Moderate H (Negative) Urine Nitrite Negative (Negative) Urine Bilirubin Negative (Negative) Urine Urobilinogen <2.0 (<2.0) mg/dL Ur Leukocyte Esterase Large H (Negative) Urine RBC 53 H (0-5) /hpf Urine WBC >182 H (0-5) /hpf Urine WBC Clumps Few H (None) /hpf Hyaline Casts 10 H (0-2) /lpf Urine Mucus Occasional H (None) /hpf Influenza Type A RNA (Not Detectd) Influenza Type B (PCR) (Not Detectd) - Radiology Data Radiology results: image reviewed (Chest x-ray shows no acute process) Disposition Clinical Impression: Chest pain, Fever, Urinary tract infection Disposition: ADMITTED IP TO THIS HOSP Is patient prescribed a controlled substance at d/c from ED?: No Referrals: Trino Camara MD [Primary Care Provider] - 1-2 days Decision Time: 10:55
[2019-02-16] MEDS ORDERED: SODIUM CHLORIDE 0.9% 500 ML 500 ML IV SCH (07:30)
[2019-02-16 07:40] LABS: Basophils % (A) 0 %; Eosinophils # (A) 0.2 k/uL (0-0.7); Eosinophils % (A) 1 %; HCT 33.8 % (39.0-53.0); Lymphocytes # (A) 0.5 k/uL (1.0-4.8); Lymphocytes % (A) 3 %; MCH 28.2 pg (25.0-35.0); MCHC 32.4 g/dL (31.0-37.0); MCV 87.1 fL (80.0-100.0); Mean Platelet Volume 7.1; Monocytes # (A) 0.6 k/uL (0-1.0); Monocytes % (A) 4 %; Neutrophils # (A) 13.9 k/uL (1.3-7.7); Neutrophils % (A) 91 %; Platelet Count 221 k/uL (150-450); RBC 3.89 m/uL (4.30-5.90); RDW 15.6 % (11.5-15.5); WBC 15.3 k/uL (3.8-10.6)
[2019-02-16 07:49] LABS: Albumin 4.1 g/dL (3.5-5.0); Calcium 9.2 mg/dL (8.4-10.2); INR 1.2 (<1.2); Potassium 3.7 mmol/L (3.5-5.1); Prothrombin Time 12.6 sec (9.0-12.0); Total Bilirubin 1.5 mg/dL (0.2-1.3); Total Protein 7.4 g/dL (6.3-8.2)
--- NOTE | 2019-02-16 08:10 | XR ---
EXAMINATION TYPE: XR chest 2V DATE OF EXAM: 02/16/2019 COMPARISON: Prior chest x-ray 01/21/[address] 09/01/2018 HISTORY: Fever and shortness of breath TECHNIQUE: Frontal and lateral views of the chest are obtained. FINDINGS: Prominent lung volumes and increased AP diameter of the chest are suggestive of underlying COPD. 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 No pneumothorax or pleural effusion. Cardiomediastinal silhouette, pulm onary vascularity and ambrocio are stable. There are cardiac leads. Prominence of the pulmonary arteries may be indicative of pulmonary artery hypertension. IMPRESSION: No acute cardiopulmonary process. Additional findings above.
[2019-02-16 08:18] LABS: Creatine Kinase MB 1.8 ng/mL (0.0-2.4)
[2019-02-16 08:23] LABS: Troponin I 0.067 ng/mL (0.000-0.034)
[2019-02-16 10:22] LABS: Appearance,Urine Turbid (Clear); Bilirubin,Urine Negative (Negative); Blood,Urine Moderate (Negative); Color,Urine Yellow; Glucose,Urine (UA) Negative (Negative); Hyaline Casts,Urine 10 /lpf (0-2); Ketones,Urine Negative (Negative); Leukocyte Esterase,Urine Large (Negative); Mucus,Urine Occasional /hpf; Nitrite,Urine Negative (Negative); Protein,Urine 1+ (Negative); RBC,Urine 53 /hpf (0-5); Specific Gravity,Urine 1.013 (1.001-1.035); Urobilinogen,Urine <2.0 mg/dL (<2.0); WBC,Urine >182 /hpf (0-5)
[2019-02-16] MEDS ORDERED: NITROGLYCERIN SL TABS 0.4 MG TAB SUBLINGUAL PRN ×2 (10:55→14:43)
[2019-02-16] MEDS ORDERED: ASPIRIN 81 MG PO STA (10:55)
[2019-02-16] MEDS ORDERED: cefTRIAXone IN SWFI 1,000 MG/10 ML SYRINGE IVP STA ×2 (10:57→11:46)
[2019-02-16] MEDS ORDERED: IPRATROPIUM-ALBUTEROL 3 ML NEB INHALATION STA (11:36)
[2019-02-16] MEDS ORDERED: VANCOMYCIN IV PER PHARMACY 1 EACH MISC MISCELLANE PRN (11:46)
--- NOTE | 2019-02-16 11:51 | CT ---
"EXAMINATION TYPE: CT angio chest DATE OF EXAM: 02/16/2019 COMPARISON: Prior CT chest 04/03/2013 HISTORY: SOB, elevated d dimer, history of PE CT DLP: 322.1 mGycm Automated exposure control for dose reduction was used. CONTRAST: CTA scan of the thorax is performed with IV Contrast, patient injected with 100 mL of Isovue 370, pul monary embolism protocol. MIP images are created and reviewed. 3D reconstructed images are created on an independent workstation and reviewed. FINDINGS: LUNGS: The lungs are stable, there is nodularity present within the left upper lobe similar to prior exam consistent with old granulomatous disease. There is no pleural effusion or pneumothorax seen. T he tracheobronchial tree is patent. AORTA: Proximal descending aorta is ectatic and 3.3 cm, atheromatous changes are present within the aorta which is tortuous. MEDIASTINUM: There is suboptimal enhancement of the pulmonary artery branches possibly due to motion and artifact, there is no CT evidence for pulmonary embolism. There are no greater than 1 cm hilar o r mediastinal lymph nodes. Prominent pulmonary artery is present, consider pulmonary artery hypertens ion. There are coronary calcifications. No pericardial effusion is seen. OTHER: Multiple cystic foci are present within the liver, largest measuring approximately 7.2 cm in t he right lobe. There is endplate erosion, sclerosis, bone destruction seen at the disc space of what is believed to be T11-12 IMPRESSION: CORRELATE FOR POSSIBLE DISCITIS T11-12. NO EVIDENT PULMONARY EMBOLISM. Exam somewhat limited to exclu de pulmonary embolism, pulmonary embolism is not evident however. Exam discussed with referring clini liliya at the time of interpretation. Additional findings above. A Document Only message has been documented for Ihsan Pizano in the [employer] | Critical Result s ystem on 02/16/2019 11:47 AM, Message ID [id number]."
[2019-02-16] MEDS ORDERED: VANCOMYCIN 1,500 MG in SODIUM CHLORIDE 0.9% 250 ML IVPB ONE (12:00)
[2019-02-16] MEDS: NITROGLYCERIN OINT 1 INCH/GM PACKET TOPICAL SCH ×3 (12:48→22:52)
[2019-02-16] MEDS ORDERED: LORATADINE 10 MG TAB PO PRN (14:43)
[2019-02-16] MEDS: ONDANSETRON 4 MG/2 ML VIAL IVP PRN (14:44)
[2019-02-16] MEDS: IPRATROPIUM-ALBUTEROL 3 ML NEB INHALATION SCH ×3 (15:24→23:46)
--- NOTE | 2019-02-16 15:39 | P.CRDCN ---
History of Present Illness Consult date: 02/16/19 Reason for Consult (text): Shortness of breath/elevated troponins. Chief complaint: Shortness of breath/elevated troponins History of present illness: HISTORY OF PRESENT ILLNESS AND PLAN: This is a 78-year-old [male] with history of CAD with PCI to the mid LAD on 02/23/2018, DVT, PE, elevated cholesterol, atrial fibrillation, kidney stones, BPH. Presents in the emergency department for [fever, shortness of breath and chest pain. Patient follows with Dr. Alejo in the office in a regular basis. Most recent cath 01/21/2019, by Dr. Hurtado, shows patent mid LAD stent. Patient recently being treated for urinary tract infection placed on Macrobid approxi mately re-days ago. She currently complaints of severe shortness of breath and chest pain with ambulation. SIGNIFICANT PAST MEDICAL HISTORY: [CAD with PCI to the mid LAD on 02/23/2018, DVT, PE, elevated cholesterol, atrial fibrillation, kidney stones, BPH] PAST SURGICAL HISTORY: See list. EKG shows [SR], heart rate [76] beats per minute. Troponins positive x [2]. 0.067, 0.1-1 SIGNIFICANT LABORATORY VALUES: [Negative flu swab. CBC WNL except for white blood cell count 15.3. BMP WNL. D-dimer = 3.22. BNP = 2430]. Chest x-ray [ Negative. Positive for COPD]. CTa chest = old granulomatous disease. Proximal descending aorta is ectactic, 3.3cm. Suboptimal views but negative for PE. Discitis T11 through T12. CAD with PCI to the mid LAD on 02/23/2018. Most recent cath 01/21/2019 patent stent of LAD. Most recent echo dated = [04/30/18] indicates [EF 55-60%, right ventricle moderately enlarged. Left atrium severely dilated. Mild aortic regurgitation. Mild MR. Mild TR. Moderate pulmonary hypertension, for 47.62. Aortic root dilated 4.1 cm]. REVIEW OF SYSTEMS: CONSTITUTIONAL: [Denies fever. Denies chills.] EYES: Denies blurred vision. [Denies blurred vision or vision changes. Denies eye pain.] EARS, NOSE, MOUTH & THROAT: [Denies headache. Denies sore throat. Denies ear pain Denies hemoptysis.] CARDIOVASCULAR: [Complains of chest pain, shortness of breath. Denies orthopnea. Denies PND. Denies palpitations.] RESPIRATORY: [Complains of cough and shortness of breath. ] GASTROINTESTINAL: [Denies abdominal pain or distention. Denies diarrhea. Denies constipation. Complains of nausea. Denies vomiting.] MUSCULOSKELETAL: [Complains of myalgias.] INTEGUMENTARY: [Denies pruitis. Denies rash.] ENDOCRINE: [Denies fatigue. Denies weight change. Denies polydipsia. Denies polyurina Denies heat/cold intolerance.] GENITOURINARY:[ Denies burning, hematuria or urgency with micturation.] HEMATOLOGIC: [Denies history of anemia. Denies bleeding.] NEUROLOGIC: [Denies numbness. Denies tingling. Denies weakness.] PSYCHIATRIC: [Denies anxiety. Denies depression.] PHYSICAL EXAM: VITAL SIGNS: 144/82, heart rate 82. RR 28. 3L NC, 97%. 98.5 TEMP GENERAL: Well developed, YES acute distress. HEENT: Head is atraumatic, normocephalic. Pupils are equal, round. Extra ocular movements intact. Mucous membranes moist. Neck supple. No JVD. No carotid bruit. No thyromegaly. LUNGS: Auscultation reveals wheezes and diminshed airway movement. No chest wall tenderness on palpation or with deep breathing. HEART: Regular rate and rhythm, no rubs or gallops. S1 and S2 heard. No murmur. Distant heart sounds ABDOMEN: Abdominal exam, WNL. Bowel sounds x4 quads. Soft, non-tender, without masses, organomegaly, or abdominal aorta enlargement. EXTREMITIES/VASCULAR: Extremities have easily palpable radial, femoral, dorsalis pedis and posterior tibial pulses. No cyanosis, calf tenderness. No BLE edema. NEUROLOGIC: Patient is awake, alert and oriented x3. No focal neurologic abnormalities. 1. UTI versus sepsis, awaiting blood cultures 2. Shortness of breath 3. Elevated troponins 4. CAD with PCI to LAD PLAN: [Second troponin elevated. Will start heparin drip/am ECG. In light of recent cardiac cath with patent stent, troponin elevation probably due to oxygen mismatch. Duo-Neb breathing treatment ordered. Pulmonary consult advised. UA versus sepsis, awaiting blood cultures. We'll follow along, please call if concerns or questions. Thannk you kindly for this consult] Nurse Practitioner note has been reviewed by Physician. Signing provider agrees with the documented findings, assessment and plan of care. Past Medical History Past Medical History: Coronary Artery Disease (CAD), Heart Failure, Deep Vein Thrombosis (DVT), Hyperlipidemia, Pneumonia, Prostate Disorder, Pulmonary Embolus (PE) Additional Past Medical History / Comment(s): R leg DVT, urinary retention, BPH with surgery, UTI with sepsis, bladder stones with surgery, chronic anemia, chronic low back pain, neuropathy R foot, recent sinus problems. History of Any Multi-Drug Resistant Organisms: None Reported Past Surgical History: Appendectomy, Heart Catheterization, Heart Catheterization With Stent, Prostate Surgery Additional Past Surgical History / Comment(s): Bladder stone removal, TURP, colonoscopy, cardiac caths with last one done 01/25/19 treat medically. Past Anesthesia/Blood Transfusion Reactions: No Reported Reaction Date of Last Stent Placement:: February 23, 2018 Smoking Status: Never smoker - Past Family History Father Family Medical History: No Reported History Additional Family Medical History / Comment(s): Father was healthy and lived to be 95 yrs old. Mother Family Medical History: Hypertension Additional Family Medical History / Comment(s): Mother of a brain tumor at the age of 75yrs. Pt states they never found out if it was cancerous. Medications and Allergies Home Medications Medication Instructions Recorded Confirmed Type Aspirin 81 mg PO DAILY #30 chew 02/24/18 02/16/19 Rx Atorvastatin [Lipitor] 80 mg PO HS #30 tab 02/24/18 02/16/19 Rx Clopidogrel [Plavix] 75 mg PO DAILY #30 tab 02/24/18 02/16/19 Rx Nitroglycerin Sl Tabs [Nitrostat] 0.4 mg SUBLINGUAL Q5M PRN #30 tab 02/24/18 02/16/19 Rx Gabapentin [Neurontin] 300 mg PO TID 08/24/18 02/16/19 History Loratadine [Claritin] 10 mg PO DAILY PRN 08/24/18 02/16/19 History Tamsulosin [Flomax] 0.4 mg PO BID 09/09/18 02/16/19 History Nitrofurantoin Monohyd/M-Cryst 100 mg PO Q12HR 02/16/19 02/16/19 History [Macrobid] Allergies Allergy/AdvReac Type Severity Reaction Status Date / Time No Known Allergies Allergy Verified 02/16/19 08:18 Physical Exam Vitals: Vital Signs Temp Pulse Pulse Resp BP BP Pulse Ox 02/16/19 12:35 97.5 F L 81 20 138/65 96 02/16/19 12:14 84 02/16/19 12:02 77 02/16/19 11:29 98.5 F 82 28 H 144/82 97 02/16/19 10:46 81 30 H 132/81 96 02/16/19 09:49 98.6 F 02/16/19 09:30 79 39 H 132/64 98 02/16/19 09:00 82 39 H 157/84 96 02/16/19 08:30 85 15 150/78 89 L 02/16/19 08:00 84 43 H 151/84 93 L 02/16/19 07:41 82 30 H 151/84 98 02/16/19 07:30 78 45 H 157/68 95 02/16/19 07:17 101.6 F H 02/16/19 07:07 86 45 H 86 L 02/16/19 06:53 98.5 F 91 22 167/77 91 L Intake and Output 02/15/19 02/16/19 02/16/19 22:59 06:59 14:59 Intake Total 472 Output Total 600 Balance -128 Intake: Intake, IV Titration 250 Amount Vancomycin 1,500 mg In 250 Sodium Chloride 0.9% 250 ml @ 125 mls/hr IVPB Q16H [facility] Rx#:[id number] Oral 222 Output: Urine 600 Other: Weight 90.718 kg 93 kg Results 02/16/19 07:10 02/16/19 07:10 Cardiac Enzymes 02/16/19 02/16/19 02/16/19 Range/Units 07:10 07:10 13:19 AST 22 (17-59) U/L CK-MB (CK-2) 1.8 (0.0-2.4) ng/mL Troponin I 0.067 H* 0.121 H* (0.000-0.034) ng/mL Coagulation 02/16/19 Range/Units 07:10 PT 12.6 H (9.0-12.0) sec APTT 24.0 (22.0-30.0) sec CBC 02/16/19 Range/Units 07:10 WBC 15.3 H (3.8-10.6) k/uL RBC 3.89 L (4.30-5.90) m/uL Hgb 11.0 L (13.0-17.5) gm/dL Hct 33.8 L (39.0-53.0) % Plt Count 221 (150-450) k/uL Comprehensive Metabolic Panel 02/16/19 Range/Units 07:10 Sodium 143 (137-145) mmol/L Potassium 3.7 (3.5-5.1) mmol/L Chloride 106 (98-107) mmol/L Carbon Dioxide 27 (22-30) mmol/L BUN 31 H (9-20) mg/dL Creatinine 1.05 (0.66-1.25) mg/dL Glucose 149 H (74-99) mg/dL Calcium 9.2 (8.4-10.2) mg/dL AST 22 (17-59) U/L ALT 26 (21-72) U/L Alkaline Phosphatase 88 (38-126) U/L Total Protein 7.4 (6.3-8.2) g/dL Albumin 4.1 (3.5-5.0) g/dL Current Medications Generic Name Dose Route Start Last Admin Trade Name Freq PRN Reason Stop Dose Admin Albuterol/Ipratropium 3 ml 02/16/19 16:00 Duoneb 0.5 Mg-3 Mg/3 Ml Soln INHALATION RT-Q4H [facility] Aspirin 325 mg 02/17/19 09:00 Aspirin PO DAILY [facility] Atorvastatin Calcium 80 mg 02/16/19 21:00 Lipitor PO HS [facility] Clopidogrel Bisulfate 75 mg 02/17/19 09:00 Plavix PO DAILY [facility] Gabapentin 300 mg 02/16/19 16:00 Neurontin PO TID [facility] Ceftriaxone Sodium 1 gm/ 50 mls @ 100 mls/hr 02/16/19 21:00 Sodium Chloride IVPB Q12HR [facility] Vancomycin HCl 1,500 mg/ 250 mls @ 125 mls/hr 02/17/19 00:00 Sodium Chloride IVPB Q16H [facility] Loratadine 10 mg 02/16/19 14:43 Claritin PO DAILY PRN Allergy Symptoms Nitroglycerin 1 inch 02/16/19 12:00 02/16/19 12:48 Nitro-Bid Oint TOPICAL 1 inch Q6HR [facility] Administration Nitroglycerin 0.4 mg 02/16/19 10:55 Nitrostat SUBLINGUAL Q5M PRN Chest Pain Ondansetron HCl 4 mg 02/16/19 14:34 02/16/19 14:44 Zofran IVP 4 mg Q6HR PRN Administration Nausea And Vomiting Tamsulosin HCl 0.4 mg 02/16/19 21:00 Flomax PO BID [facility] Intake and Output 02/15/19 02/16/19 02/16/19 22:59 06:59 14:59 Intake Total 472 Output Total 600 Balance -128 Intake: Intake, IV Titration 250 Amount Vancomycin 1,500 mg In 250 Sodium Chloride 0.9% 250 ml @ 125 mls/hr IVPB Q16H [facility] Rx#:[id number] Oral 222 Output: Urine 600 Other: Weight 90.718 kg 93 kg Patient Weight 02/17/19 06:59 Weight 93 kg 02/16/19 07:10 02/16/19 07:10 - EKG Interpretation EKG: sinus rhythm (, HR 70's)
[2019-02-16] MEDS ORDERED: HEPARIN SODIUM,PORCINE 5,000 UNIT/ML 1 ML VIAL IV PRN (15:41)
[2019-02-16] MEDS ORDERED: HEPARIN SODIUM,PORCINE 5,000 UNIT/ML 1 ML VIAL IV ONE (15:41)
[2019-02-16] MEDS ORDERED: traMADol 50 MG TAB PO PRN (16:27)
--- NOTE | 2019-02-16 16:34 | P.HPIM ---
History of Present Illness Patient is a very pleasant 78-year-old gentleman came in with complaints of fever high-grade was recently treated for urinary tract infection patient is comparing of UTI symptoms including dysuria patient was treated with Macrobid pa tient in the past enterococcus in the urine . Patient was also complaining of shortness of breath denied any orthopnea paroxysmal nocturnal dyspnea was complaining of chest pain sharp in nature patient has one set of troponin that was 0.06 and the second one 0.121 patient had recent cardiac catheterization at that time patient is found to have patent stents in LAD. Cardiology evaluated the patient regarding his chest pain. Patient apparently had some wheezing earlier today which improved with breathing treatments, and I evaluated there is no significant wheezing at but since he is still complaining of shortness of breath there is no evidence of pulmonary embolism or pulmonary edema, ordered the inhaled steroids. Patient had a CAT scan of the chest rule out pulmonary embolism because of elevated d-dimer which showed possible discitis at T11-T12 level because of which I consulted infectious disease blood cultures were obtained patient is already in vancomycin patient is already also on Rocephin was of which will be continued at this time. Patient did complain of increasing back pain although denied any increased weakness. Patient denied any cough. Does have urinary retention does follow with urology as an outpatient. Review of Systems REVIEW OF SYSTEMS: CONSTITUTIONAL: No fever, no malaise, no fatigue. HEENT: No recent visual problems or hearing problems. Denied any sore throat. CARDIOVASCULAR: No , orthopnea, PND, no palpitations, no syncope. PULMONARY: , no cough, no hemoptysis. GASTROINTESTINAL: No diarrhea, no nausea, no vomiting, no abdominal pain. NEUROLOGICAL: No headaches, no weakness, no numbness. HEMATOLOGICAL: Denies any bleeding or petechiae. GENITOURINARY: As mentioned in HPI MUSCULOSKELETAL/RHEUMATOLOGICAL: Denies any joint pain, swelling, or any muscle pain. ENDOCRINE: Denies any polyuria or polydipsia. The rest of the 14-point review of systems is negative. Past Medical History Past Medical History: Coronary Artery Disease (CAD), Heart Failure, Deep Vein Thrombosis (DVT), Hyperlipidemia, Pneumonia, Prostate Disorder, Pulmonary Embolus (PE) Additional Past Medical History / Comment(s): R leg DVT, urinary retention, BPH with surgery, UTI with sepsis, bladder stones with surgery, chronic anemia, chronic low back pain, neuropathy R foot, recent sinus problems. History of Any Multi-Drug Resistant Organisms: None Reported Past Surgical History: Appendectomy, Heart Catheterization, Heart Catheterization With Stent, Prostate Surgery Additional Past Surgical History / Comment(s): Bladder stone removal, TURP, colonoscopy, cardiac caths with last one done 01/25/19 treat medically. Past Anesthesia/Blood Transfusion Reactions: No Reported Reaction Date of Last Stent Placement:: February 23, 2018 Smoking Status: Never smoker - Past Family History Father Family Medical History: No Reported History Additional Family Medical History / Comment(s): Father was healthy and lived to be 95 yrs old. Mother Family Medical History: Hypertension Additional Family Medical History / Comment(s): Mother of a brain tumor at the age of 75yrs. Pt states they never found out if it was cancerous. Medications and Allergies Home Medications Medication Instructions Recorded Confirmed Type Aspirin 81 mg PO DAILY #30 chew 02/24/18 02/16/19 Rx Atorvastatin [Lipitor] 80 mg PO HS #30 tab 02/24/18 02/16/19 Rx Clopidogrel [Plavix] 75 mg PO DAILY #30 tab 02/24/18 02/16/19 Rx Nitroglycerin Sl Tabs [Nitrostat] 0.4 mg SUBLINGUAL Q5M PRN #30 tab 02/24/18 02/16/19 Rx Gabapentin [Neurontin] 300 mg PO TID 08/24/18 02/16/19 History Loratadine [Claritin] 10 mg PO DAILY PRN 08/24/18 02/16/19 History Tamsulosin [Flomax] 0.4 mg PO BID 09/09/18 02/16/19 History Nitrofurantoin Monohyd/M-Cryst 100 mg PO Q12HR 02/16/19 02/16/19 History [Macrobid] Allergies Allergy/AdvReac Type Severity Reaction Status Date / Time No Known Allergies Allergy Verified 02/16/19 08:18 Physical Exam Vitals: Vital Signs Temp Pulse Pulse Resp BP BP Pulse Ox 02/16/19 15:34 80 02/16/19 15:26 80 02/16/19 14:57 24 02/16/19 14:56 24 140/78 94 L 02/16/19 12:35 97.5 F L 81 20 138/65 96 02/16/19 12:14 84 02/16/19 12:02 77 02/16/19 11:29 98.5 F 82 28 H 144/82 97 02/16/19 10:46 81 30 H 132/81 96 02/16/19 09:49 98.6 F 02/16/19 09:30 79 39 H 132/64 98 02/16/19 09:00 82 39 H 157/84 96 02/16/19 08:30 85 15 150/78 89 L 02/16/19 08:00 84 43 H 151/84 93 L 02/16/19 07:41 82 30 H 151/84 98 02/16/19 07:30 78 45 H 157/68 95 02/16/19 07:17 101.6 F H 02/16/19 07:07 86 45 H 86 L 02/16/19 06:53 98.5 F 91 22 167/77 91 L Intake and Output 02/16/19 02/16/19 02/16/19 06:59 14:59 22:59 Intake Total 472 Output Total 600 Balance -128 Intake: Intake, IV Titration 250 Amount Vancomycin 1,500 mg In 250 Sodium Chloride 0.9% 250 ml @ 125 mls/hr IVPB Q16H [facility] Rx#:[id number] Oral 222 Output: Urine 600 Other: Weight 90.718 kg 93 kg PHYSICAL EXAMINATION: GENERAL: The patient is alert and oriented x3, not in any acute distress. Well developed, well nourished. HEENT: Pupils are round and equally reacting to light. EOMI. No scleral icterus. No conjunctival pallor. Normocephalic, atraumatic. No pharyngeal erythema. No thyromegaly. CARDIOVASCULAR: S1 and S2 present. No murmurs, rubs, or gallops. PULMONARY: Chest is clear to auscultation, no wheezing or crackles. ABDOMEN: Soft, nontender, nondistended, normoactive bowel sounds. No palpable organomegaly. MUSCULOSKELETAL: No joint swelling or deformity. EXTREMITIES: No cyanosis, clubbing, or pedal edema. NEUROLOGICAL: Gross neurological examination did not reveal any focal deficits. SKIN: No rashes. Results CBC & Chem 7: 02/16/19 07:10 02/16/19 07:10 Labs: Abnormal Lab Results - Last 24 Hours (Table) 02/16/19 02/16/1919 Range/Units 07:10 07:10 07:10 WBC 15.3 H (3.8-10.6) k/uL RBC 3.89 L (4.30-5.90) m/uL Hgb 11.0 L (13.0-17.5) gm/dL Hct 33.8 L (39.0-53.0) % RDW 15.6 H (11.5-15.5) % Neutrophils # 13.9 H (1.3-7.7) k/uL Lymphocytes # 0.5 L (1.0-4.8) k/uL PT (9.0-12.0) sec INR (<1.2) D-Dimer (<0.60) mg/L FEU BUN 31 H (9-20) mg/dL Glucose 149 H (74-99) mg/dL Total Bilirubin 1.5 H (0.2-1.3) mg/dL Creatine Kinase 239 H (55-170) U/L Troponin I 0.067 H* (0.000-0.034) ng/mL Urine Protein (Negative) Urine Blood (Negative) Ur Leukocyte Esterase (Negative) Urine RBC (0-5) /hpf Urine WBC (0-5) /hpf Urine WBC Clumps (None) /hpf Hyaline Casts (0-2) /lpf Urine Mucus (None) /hpf 02/16/19 02/16/19 02/16/19 Range/Units 07:10 07:10 09:32 WBC (3.8-10.6) k/uL RBC (4.30-5.90) m/uL Hgb (13.0-17.5) gm/dL Hct (39.0-53.0) % RDW (11.5-15.5) % Neutrophils # (1.3-7.7) k/uL Lymphocytes # (1.0-4.8) k/uL PT 12.6 H (9.0-12.0) sec INR 1.2 H (<1.2) D-Dimer 3.22 H (<0.60) mg/L FEU BUN (9-20) mg/dL Glucose (74-99) mg/dL Total Bilirubin (0.2-1.3) mg/dL Creatine Kinase (55-170) U/L Troponin I (0.000-0.034) ng/mL Urine Protein 1+ H (Negative) Urine Blood Moderate H (Negative) Ur Leukocyte Esterase Large H (Negative) Urine RBC 53 H (0-5) /hpf Urine WBC >182 H (0-5) /hpf Urine WBC Clumps Few H (None) /hpf Hyaline Casts 10 H (0-2) /lpf Urine Mucus Occasional H (None) /hpf 02/16/19 Range/Units 13:19 WBC (3.8-10.6) k/uL RBC (4.30-5.90) m/uL Hgb (13.0-17.5) gm/dL Hct (39.0-53.0) % RDW (11.5-15.5) % Neutrophils # (1.3-7.7) k/uL Lymphocytes # (1.0-4.8) k/uL PT (9.0-12.0) sec INR (<1.2) D-Dimer (<0.60) mg/L FEU BUN (9-20) mg/dL Glucose (74-99) mg/dL Total Bilirubin (0.2-1.3) mg/dL Creatine Kinase (55-170) U/L Troponin I 0.121 H* (0.000-0.034) ng/mL Urine Protein (Negative) Urine Blood (Negative) Ur Leukocyte Esterase (Negative) Urine RBC (0-5) /hpf Urine WBC (0-5) /hpf Urine WBC Clumps (None) /hpf Hyaline Casts (0-2) /lpf Urine Mucus (None) /hpf Thrombosis Risk Factor Assmnt - Choose All That Apply Any of the Below Risk Factors Present?: Yes Each Factor Represents 1 point: Abnormal pulmonary function (COPD), Obesity (BMI >25), Swollen legs (current) Other Risk Factors: Yes Each Risk Factor Represents 3 Points: Age 75 years or older Other congenital or acquired thrombophilia - If yes, enter type in comment: No Thrombosis Risk Factor Assessment Total Risk Factor Score: 6 Thrombosis Risk Factor Assessment Level: High Risk Assessment and Plan Plan: Sepsis: Secondary to possible urinary tract infection and discitis from enterococcal bacteriuria from urinary tract infection. Infectious disease was consulted continued vancomycin also continued the Rocephin until we get the cultures sensitivities. Patient may need an MRI -Possible non-ST elevation myocardial infarction: Cardiology evaluated the patient patient is on IV heparin at this time -Chronic urinary retention: Patient will be resumed on Flomax, patient may need a Hair catheter. Follow-up with urology as an outpatient -Coronary Artery disease -DVT in the past presently not on any anticoagulation as an outpatient -Hyperlipidemia -Benign prostatic hypertrophy Patient will need oncology prophylaxis and is on IV heparin for non-ST elevation myocardial infarction.
[2019-02-16] MEDS: HEPARIN SOD,PORK IN 0.45% NACL 25,000 UNIT in 0.45% NACL 1 250ML.BAG IV SCH (17:45)
[2019-02-16] MEDS: GABAPENTIN 300 MG CAP PO SCH ×2 (17:45→20:06)
[2019-02-16] MEDS: ACETAMINOPHEN TAB 325 MG TAB PO PRN (18:10)
[2019-02-16] MEDS: SYMBICORT 160-4.5 MCG INHALER INHALATION SCH ×2 (19:41→19:55)
[2019-02-16] MEDS: ATORVASTATIN 80 MG TAB PO SCH (20:06)
[2019-02-16] MEDS: TAMSULOSIN 0.4 MG CAP.ER.24H PO SCH (20:06)
[2019-02-17] MEDS ORDERED: VANCOMYCIN 1,500 MG in SODIUM CHLORIDE 0.9% 250 ML IVPB SCH ×2
[2019-02-17] MEDS: IPRATROPIUM-ALBUTEROL 3 ML NEB INHALATION SCH ×5 (04:15→20:27)
[2019-02-17] MEDS: HYDROcodone/APAP 5-325MG 1 EACH TAB PO PRN (04:42)
[2019-02-17] MEDS: NITROGLYCERIN OINT 1 INCH/GM PACKET TOPICAL SCH ×3 (06:26→17:04)
[2019-02-17 08:25] LABS: Cholesterol 107 mg/dL (<200); HDL Cholesterol 42 mg/dL (40-60); LDL Cholesterol,Calculated 55 mg/dL (0-99); Triglycerides 48 mg/dL (<150)
[2019-02-17 08:26] LABS: Basophils % (A) 0 %; Eosinophils # (A) 0.3 k/uL (0-0.7); Eosinophils % (A) 3 %; HCT 29.2 % (39.0-53.0); Hypochromasia Slight; Lymphocytes # (A) 0.5 k/uL (1.0-4.8); Lymphocytes % (A) 6 %; MCH 27.9 pg (25.0-35.0); MCV 89.8 fL (80.0-100.0); Mean Platelet Volume 7.3; Monocytes # (A) 0.5 k/uL (0-1.0); Monocytes % (A) 6 %; Neutrophils # (A) 7.1 k/uL (1.3-7.7); Neutrophils % (A) 85 %; Platelet Count 185 k/uL (150-450); RBC 3.25 m/uL (4.30-5.90); RDW 15.8 % (11.5-15.5); WBC 8.3 k/uL (3.8-10.6)
[2019-02-17 08:27] LABS: HGB 9.1 gm/dL (13.0-17.5)
[2019-02-17] MEDS: SYMBICORT 160-4.5 MCG INHALER INHALATION SCH ×3 (08:45→20:40)
[2019-02-17] MEDS: CLOPIDOGREL 75 MG TAB PO SCH (09:36)
[2019-02-17] MEDS: SENNOSIDES-DOCUSATE SODIUM 1 EACH TAB PO SCH (09:36)
[2019-02-17] MEDS: ASPIRIN 325 MG TAB PO SCH (09:36)
[2019-02-17] MEDS: GABAPENTIN 300 MG CAP PO SCH ×3 (09:36→21:21)
[2019-02-17] MEDS: TAMSULOSIN 0.4 MG CAP.ER.24H PO SCH ×2 (09:37→21:21)
[2019-02-17] MEDS: ACETAMINOPHEN TAB 325 MG TAB PO PRN (09:39)
--- NOTE | 2019-02-17 09:49 | MR ---
EXAMINATION TYPE: MR thoracic spine wo/w con DATE OF EXAM: 02/17/2019 COMPARISON: Correlation CT chest 02/16/2019 and abdomen pelvis 09/01/2018 HISTORY: 78-year-old male T11/T12 discitis seen on CT Technique: Multiplanar, multisequence images of the thoracic spine were obtained before and after adm inistration of 9.5 mL intravenous Gadavist gadolinium contrast. FINDINGS: We note that the disc and endplate changes centered at T11-T12 are new from the 09/01/2018 CT. There is extensive corresponding endplate erosion and irregularity with some fluid in the intervening space. There is associated sclerosis along the margins of erosion and only mild associated enhanceme nt. Aside from a large anterior endplate spur, no significant paraspinal abnormality is seen. There is mild posterior disc bulge at T11-T12 with impression on the ventral thecal sac but additiona l levels of small posterior disc protrusion such as at T5-T6, T12-L1, and L1-L2. No spinal canal sten osis. No abnormal enhancement within the spinal canal. Dependent bilateral opacities in the lungs appear to have increased from the patient's recent CT. Mild multilevel degenerative disc disease with accentuated midthoracic kyphosis. On the right, there is moderate neuroforaminal narrowing at T1-T2, T2-T3, and mild at T10-T11 and T11 -T12. On the left, there is mild neuroforaminal narrowing at T1-T2 and T11-T12. There is normal cord signal. No abnormal enhancement within the spinal canal. IMPRESSION: 1. T11-T12 endplate erosions, intradiscal fluid, and associated mild endplate enhancement. Findings a re new from the patient's 09/01/2018 CT. No paravertebral or epidural abscess. Findings suggestive of discitis osteomyelitis. 2. Mild posterior disc bulge at T11-12 mildly narrowing the spinal canal. 3. Additional levels of mild degenerative disc disease and variable mild neuroforaminal narrowing as outlined above. More moderate on the right at T1-T2, T2-T3, T10-T11, and T11-T12. 4. Dependent opacities in the lungs have increased from the patient's CT performed yesterday. Promine nt atelectasis or underlying pneumonitis are considerations.
[2019-02-17] MEDS: HEPARIN SOD,PORK IN 0.45% NACL 25,000 UNIT in 0.45% NACL 1 250ML.BAG IV SCH (11:52)
[2019-02-17] MEDS: AMPICILLIN 2,000 MG in SODIUM CHLORIDE 0.9% 100 ML IVPB SCH ×3 (11:57→20:09)
--- NOTE | 2019-02-17 12:01 | ECHOF ---
Referral Reason: MEASUREMENTS -------- HEIGHT: 172.7 cm WEIGHT: 95.3 kg BP: IVSd: 1.6 cm (0.6 - 1.1) LVIDd: 2.3 cm (3.9 - 5.3) LVPWd: 1.6 cm (0.6 - 1.1) IVSs: 2.0 cm LVIDs: 1.3 cm LVPWs: 1.9 cm LAESV Index (A-L): 38.44 ml/m Ao Diam: 3.5 cm (2.0 - 3.7) AV Cusp: 2.1 cm (1.5 - 2.6) LA Diam: 3.8 cm (2.7 - 3.8) MV EXCURSION: 19.913 mm (> 18.000) MV EF SLOPE: 55 mm/s (70 - 150) EPSS: 0.8 cm MV E Pool: 0.72 m/s MV DecT: 254 ms MV A Pool: 0.85 m/s MV E/A Ratio: 0.85 AR PHT: 352 ms RAP: 5.00 mmHg RVSP: 33.18 mmHg FINDINGS -------- Sinus rhythm. This was a technically good study. The left ventricular size is normal. There is moderate concentric left ventricular hypertrophy. O verall left ventricular systolic function is normal with, an EF between 55 - 60 %. The right ventricle is normal in size. LA is moderately dilated 34-39 ml/m2 The right atrial size is normal. Aortic valve is trileaflet and is mildly thickened. There is mild aortic regurgitation. Mild mitral annular calcification present. There is trace mitral regurgitation. Trace tricuspid regurgitation present. The right ventricular systolic pressure, as measured by Dopp ler, is 33.18mmHg. Pulmonic valve appears structurally normal. The aortic root size is normal. IVC Not well visulized. There is no pericardial effusion. CONCLUSIONS -------- 1. Sinus rhythm. 2. This was a technically good study. 3. The left ventricular size is normal. 4. There is moderate concentric left ventricular hypertrophy. 5. Overall left ventricular systolic function is normal with, an EF between 55 - 60 %. 6. The right ventricle is normal in size. 7. LA is moderately dilated 34-39 ml/m2 8. The right atrial size is normal. 9. Aortic valve is trileaflet and is mildly thickened. 10. There is mild aortic regurgitation. 11. Mild mitral annular calcification present. 12. There is trace mitral regurgitation. 13. Trace tricuspid regurgitation present. 14. The right ventricular systolic pressure, as measured by Doppler, is 33.18mmHg. 15. Pulmonic valve appears structurally normal. 16. The aortic root size is normal. 17. IVC Not well visulized. 18. There is no pericardial effusion. [employer]: Re Lagos RDCS
--- NOTE | 2019-02-17 12:24 | CONS ---
CONSULTATION DATE OF SERVICE: 02/16/2019 REASON FOR CONSULTATION: Discitis and sepsis. HISTORY OF PRESENT ILLNESS: The patient is a 78-year-old, male presenting to the ER with chief complaints of fevers and chest discomfort. Apparently the patient started having chest pain around midnight. The patient's pain has been mostly in the left lower chest area, more of a dull achy to sharp intensity of 6 to 7 out of 10 noted and no radiation with associated shortness of breath. The patient denies having cough or sputum production. The patient also had been running a fever with recent cardiac stent placement about a month ago and apparently the patient also having hematuria and was treated in outpatient by his urologist with oral Macrobid. With these multiple symptoms, the patient did present to the ER where the patient was evaluated by the ER physician. The patient did have a chest x-ray which was negative for any acute cardiopulmonary process. The patient did have a CT angiogram that was negative for PE or any pneumonia; however, did show a possible discitis T11 to T12. Patient on presentation did have a fever of 101.6 degrees Fahrenheit. Patient did have tachycardia, heart rate in the 90s and hypertensive. The patient's white count elevated to 15.3. Urine has been positive with large leukocyte esterase with more than 182 WBCs. Influenza serology was negative. The patient was started on vancomycin and Rocephin and admitted to the hospital. Infectious Disease was consulted for further management. The patient with chronic back pain mostly in the mid back area that apparently has been getting worse for the last week or two. Patient denies having any history of trauma. Pain to the mid back area described to be more of a dull aching pain with intensity about 6 to 7 out of 10, and no radiation. Patient denies having any abdominal pain or any weakness in the legs. REVIEW OF SYSTEMS: CONSTITUTIONAL: Positive for weakness along with the fever. EYES: No complaint. ENT: No complaint. RESPIRATORY: As per HPI. CARDIOVASCULAR: As per HPI. : As per HPI. GASTROINTESTINAL: No complaint. MUSCULOSKELETAL: As per HPI. PSYCHOLOGICAL: No complaint. ENDOCRINE: No complaint. NEUROLOGIC: No complaint. PAST MEDICAL HISTORY: Coronary artery disease, heart failure with DVT, pneumonia, pulmonary embolism, recurrent UTIs, and prostate disorder. PAST SURGICAL HISTORY: Appendectomy, heart catheterization with stent, prostate surgery, bladder stone removed. SOCIAL HISTORY: No history of smoking, drinking or drug use. , lives with . FAMILY HISTORY: No pertinent findings noticed. ALLERGIES: No known drug allergies. MEDICATIONS: Medications include the patient is currently on Tylenol, [place], DuoNeb, aspirin, Lipitor, Symbicort, Rocephin 1 gram daily, Plavix, Neurontin, heparin, Claritin, Nitrostat, Nitro-bid, Zofran, Senokot, Flomax, Ultram, vancomycin 1500 q.16 hours. PHYSICAL EXAMINATION: On examination, blood pressure 99/50 with a pulse of 77, temperature 98.4, T-max 101.6. He is 95% on 3 L nasal cannula. General description is an elderly male lying in bed in no distress. No tachypnea or accessory muscle of respiration use. HEENT examination shows pallor, no scleral icterus. Oral mucous membrane is dry. No pharyngeal erythema or thrush. NECK: Trachea central. No thyromegaly. LUNGS: Unlabored breathing with decreased breath sounds at the bases, no wheeze. HEART: S1, S2. Regular rate and rhythm. ABDOMEN: Soft, no tenderness. No guarding or rigidity. EXTREMITIES: No edema of feet. SKIN EXAMINATION: No rash or mass palpable. NEUROLOGICALLY: The patient is awake, alert, oriented x3. Mood and affect normal. LABS: Hemoglobin is 11, white count 15.3. Troponin has been elevated. BUN of 31, creatinine 1.05. White count has been normal. Bilirubin was 1.5. UA has been positive with large leukocyte esterase, more than 182 WBCs. Influenza serology was negative. CT angiogram report as mentioned above. DIAGNOSTIC IMPRESSION AND PLAN: Patient admitted to the hospital with sepsis in this patient who did have a fever, tachycardia and elevated white count source is likely complicated urinary tract infection; also T11-T12 for discitis as the patient has been complaining of more pain to the mid back area for the last week or two. Patient who does have a history of recurrent urinary tract infection and on review of his microbiology data, the patient has grown the same Enterococcus in his urine in October of 2018, in December and early January of 2018. Unfortunately, there were no blood cultures done during those times to see if the patient has got bacteremic of the thoracic spine. Ideally, would have requested a CT-guided aspirate of this lesion which should have been sent for culture for definitive microbiological diagnosis. Unfortunately, the patient is on Plavix which the patient needs because of recent cardiac stent placement and to significant in any of the anticoagulant that the patient is currently on. PLAN: 1. We will obtain an MRI of the thoracic spine with contrast to better define the abnormality described on the CT that revealed no evidence of any paraspinal abscess that may need surgical procedure. 2. Vancomycin pharmacy to dose, , watching his kidney function closely. 3. Blood cultures x2, repeat in addition to blood culture done yesterday. I will check baseline CRP and sed rate. 4. We will follow up on clinical condition and investigations to further adjust medication if needed. His care was discussed with the admitting physician as well as family present at the bedside. All questions were answered . MMDELLA / ROBERTN: [id number] /
--- NOTE | 2019-02-17 13:56 | P.CNPUL ---
History of Present Illness Consult date: 02/17/19 Requesting physician: Emmie Lombardo Reason for consult: dyspnea Chief complaint: Shortness of breath, chest pain History of present illness: This is a very pleasant 78-year-old gentleman who follows with Dr. Muñoz as his primary care physician. He has a history of coronary artery disease with previous stent placements most recently in December 2018, prior to that January 2018, congestive heart failure preserved left ventricular systolic function ejection fraction 55-60%, PE/DVT, frequent urinary tract infections and dysuria. He's been treated with Macrobid and has a history of enterococcus. He presented here to the emergency room yesterday with complaints of increasing shortness of breath and chest discomfort. Troponin 0.163, 0.187. ProBNP 2530. CT angiogram ruled out pulmonary embolism but there was noted discitis at T11 and 12. Influenza screen was negative. Blood and urine cultures pending. White count 8.3. Hemoglobin 9.1. Creatinine 1.05. Lactic acid 1.8. He has h ad a T-max of 100.5. He is maintaining good O2 saturations in the 90s on 3 L/m per nasal cannula. The patient is seen today in consultation on the selective care unit. He is awake and alert in no acute distress. The patient is a lifelong nonsmoker. He has not been seen by a director of planning in the past. No home oxygen. No home inhalers. Shortness of breath less likely to be pulmonary related. Chest x-ray shows no acute cardiopulmonary process. Review of Systems REVIEW OF SYSTEMS: CONSTITUTIONAL: Denies any recent significant weight loss or weight gain. EYES: Denies change in vision. EARS, NOSE, MOUTH, THROAT: Denies headaches, denies sore throat. CARDIOVASCULAR: Positive for chest pain, no palpitations or syncopal episodes. RESPIRATORY: Positive for shortness of breath, no cough, congestion or hemoptysis. GASTROINTESTINAL: Denies change in appetite, denies abdominal pain GENITOURINARY: Positive infections. Dysuria.. MUSKULOSKELETAL: Denies pain, denies swelling. INTEGUMENTARY: Denies rash, denies eczema. NEUROLOGICAL: Denies recent memory loss, no recent seizure activity. PSYCHIATRIC: Denies anxiety, denies depression. HEMATOLOGIC/LYMPHATIC: Denies anemia, denies enlarged lymph nodes. Past Medical History Past Medical History: Coronary Artery Disease (CAD), Heart Failure, Deep Vein Thrombosis (DVT), Hyperlipidemia, Pneumonia, Prostate Disorder, Pulmonary Embolus (PE) Additional Past Medical History / Comment(s): R leg DVT, urinary retention, BPH with surgery, UTI with sepsis, bladder stones with surgery, chronic anemia, chronic low back pain, neuropathy R foot, recent sinus problems. History of Any Multi-Drug Resistant Organisms: None Reported Past Surgical History: Appendectomy, Heart Catheterization, Heart Catheteriz ation With Stent, Prostate Surgery Additional Past Surgical History / Comment(s): Bladder stone removal, TURP, colonoscopy, cardiac caths with last one done 01/25/19 treat medically. Past Anesthesia/Blood Transfusion Reactions: No Reported Reaction Date of Last Stent Placement:: February 23, 2018 Smoking Status: Never smoker - Past Family History Father Family Medical History: No Reported History Additional Family Medical History / Comment(s): Father was healthy and lived to be 95 yrs old. Mother Family Medical History: Hypertension Additional Family Medical History / Comment(s): Mother of a brain tumor at the age of 75yrs. Pt states they never found out if it was cancerous. Medications and Allergies Home Medications Medication Instructions Recorded Confirmed Type Aspirin 81 mg PO DAILY #30 chew 02/24/18 02/16/19 Rx Atorvastatin [Lipitor] 80 mg PO HS #30 tab 02/24/18 02/16/19 Rx Clopidogrel [Plavix] 75 mg PO DAILY #30 tab 02/24/18 02/16/19 Rx Nitroglycerin Sl Tabs [Nitrostat] 0.4 mg SUBLINGUAL Q5M PRN #30 tab 02/24/18 02/16/19 Rx Gabapentin [Neurontin] 300 mg PO TID 08/24/18 02/16/19 History Loratadine [Claritin] 10 mg PO DAILY PRN 08/24/18 02/16/19 History Tamsulosin [Flomax] 0.4 mg PO BID 09/09/18 02/16/19 History Nitrofurantoin Monohyd/M-Cryst 100 mg PO Q12HR 02/16/19 02/16/19 History [Macrobid] Allergies Allergy/AdvReac Type Severity Reaction Status Date / Time No Known Allergies Allergy Verified 02/16/19 08:18 Physical Exam Vitals: Vital Signs Temp Pulse Pulse Resp BP Pulse Ox 02/17/19 11:42 64 02/17/19 11:34 62 02/17/19 11:29 99 F 65 18 125/61 97 02/17/19 08:00 99.6 F 74 18 111/58 93 L 02/17/19 07:54 72 18 02/17/19 04:48 99.4 F 72 18 122/56 97 02/17/19 04:24 72 02/17/19 04:15 76 02/16/19 23:55 68 02/16/19 23:47 68 02/16/19 22:55 98.2 F 66 16 96/54 95 02/16/19 20:00 98.4 F 77 18 99/50 95 02/16/19 19:55 81 02/16/19 19:43 81 02/16/19 19:20 99.2 F 02/16/19 18:12 100.5 F H 02/16/19 16:00 98.4 F 78 18 143/63 96 02/16/19 15:34 80 02/16/19 15:26 80 02/16/19 14:57 24 02/16/19 14:56 24 140/78 94 L Intake and Output 02/16/19 02/17/19 02/17/19 22:59 06:59 14:59 Intake Total 79.317 613.387 Output Total 850 Balance -850 79.317 613.387 Intake: Intake, IV Titration 79.317 133.387 Amount Heparin Sod,Pork in 0.45% 79.317 133.387 NaCl 25,000 unit In 0.45 % NaCl 1 250ml.bag @ 10. 75 UNITS/KG/HR 9.998 mls/ hr IV .Q24H [facility] Rx#: [id number] Oral 480 Output: Urine 850 Uretheral (Hair) 325 Other: Voiding Method Indwelling Catheter Indwelling Catheter Indwelling Catheter Weight 93.8 kg GENERAL EXAM: Alert, fairly comfortable in no apparent distress. On 3 L nasal cannula. HEAD: Normocephalic. EYES: Normal reaction of pupils, equal size. NOSE: Clear with pink turbinates. THROAT: No erythema or exudates. NECK: No masses, no JVD. CHEST: No chest wall deformity. LUNGS: Equal air entry with no crackles, wheeze, rhonchi or dullness. CVS: S1 and S2 normal with no audible murmur, regular rhythm. ABDOMEN: No hepatosplenomegaly, normal bowel sounds, no guarding or rigidity. SPINE: No scoliosis or deformity SKIN: No rashes CENTRAL NERVOUS SYSTEM: No focal deficits, tone is normal in all 4 extremities. EXTREMITIES: There is no peripheral edema. No clubbing, no cyanosis. Peripheral pulses are intact. Results - Laboratory Findings CBC and BMP: 02/17/19 07:26 02/16/19 07:10 PT/INR, D-dimer PT 12.6 sec (9.0-12.0) H 02/16/19 07:10 INR 1.2 (<1.2) H 02/16/19 07:10 D-Dimer 3.22 mg/L FEU (<0.60) H 02/16/19 07:10 Abnormal lab findings: Abnormal Labs 02/16/19 02/16/19 02/16/19 07:10 07:10 07:10 WBC 15.3 H RBC 3.89 L Hgb 11.0 L Hct 33.8 L RDW 15.6 H Neutrophils # 13.9 H Lymphocytes # 0.5 L ESR PT INR APTT D-Dimer BUN 31 H Glucose 149 H Total Bilirubin 1.5 H Creatine Kinase 239 H Troponin I 0.067 H* C-Reactive Protein Urine Protein Urine Blood Ur Leukocyte Esterase Urine RBC Urine WBC Urine WBC Clumps Hyaline Casts Urine Mucus 02/16/19 02/16/19 02/16/19 07:10 07:10 09:32 WBC RBC Hgb Hct RDW Neutrophils # Lymphocytes # ESR PT 12.6 H INR 1.2 H APTT D-Dimer 3.22 H BUN Glucose Total Bilirubin Creatine Kinase Troponin I C-Reactive Protein Urine Protein 1+ H Urine Blood Moderate H Ur Leukocyte Esterase Large H Urine RBC 53 H Urine WBC >182 H Urine WBC Clumps Few H Hyaline Casts 10 H Urine Mucus Occasional H 02/16/19 02/16/19 02/16/19 13:19 17:28 17:28 WBC RBC Hgb Hct RDW Neutrophils # Lymphocytes # ESR 41 H PT INR APTT D-Dimer BUN Glucose Total Bilirubin Creatine Kinase Troponin I 0.121 H* C-Reactive Protein 148.0 H Urine Protein Urine Blood Ur Leukocyte Esterase Urine RBC Urine WBC Urine WBC Clumps Hyaline Casts Urine Mucus 02/16/19 02/16/19 02/17/19 18:47 23:41 07:26 WBC RBC 3.25 L Hgb 9.1 L D Hct 29.2 L RDW 15.8 H Neutrophils # Lymphocytes # 0.5 L ESR PT INR APTT 36.9 H D-Dimer BUN Glucose Total Bilirubin Creatine Kinase Troponin I 0.163 H* C-Reactive Protein Urine Protein Urine Blood Ur Leukocyte Esterase Urine RBC Urine WBC Urine WBC Clumps Hyaline Casts Urine Mucus 02/17/19 02/17/19 07:26 07:26 WBC RBC Hgb Hct RDW Neutrophils # Lymphocytes # ESR PT INR APTT 40.8 H D-Dimer BUN Glucose Total Bilirubin Creatine Kinase Troponin I 0.187 H* C-Reactive Protein Urine Protein Urine Blood Ur Leukocyte Esterase Urine RBC Urine WBC Urine WBC Clumps Hyaline Casts Urine Mucus - Diagnostic Findings Chest x-ray: image reviewed CT scan - chest: image reviewed Assessment and Plan Assessment: Impression: #1 Sepsis secondary to suspected urinary tract infection and possible discitis noted on CT angiogram. Patient is currently on vancomycin and ceftriaxone. 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 There are endplate erosions and intradiscal fluid and associated mild endplate enhancement and T11- T12. #2 Chest pain in a patient with known history of coronary artery disease and recent stent placements. #3 Previous history of PE/DVT. Current CT angiogram ruled out acute pulmonary embolism. #4 Benign prosthetic hypertrophy. Previous TURP #5 Urinary retention requiring indwelling Hair catheter. #6 Previous history of UTI/sepsis. #7 Chronic anemia. Thank: The patient was seen and evaluated by Dr. Conde. Chest x-ray, CT angiogram and labs all reviewed. The patient is a lifelong nonsmoker. No evidence of COPD. We'll continue with his current treatment plan including antibiotics in the form of vancomycin and Rocephin. ID is on the case. Cardiology is on the case regarding possible non-ST segment elevation myocardial infarction. The patient does follow with urology in the outpatient setting regarding his urinary retention. We will continue to follow make further recommendations based on his clinical status. I, the cosigning physician, performed a history & physical examination of the patient. Lungs sounds are clear. Maintaining good O2 saturations in the 90s on 3 L/m per nasal cannula. I discussed the assessment and plan of care with my nurse practitioner, Keila Alvarez. I attest to the above note as dictated by her. Time with Patient: Greater than 30
[2019-02-17] MEDS: SIMETHICONE 80 MG CHEWABLE PO SCH ×3 (14:43→21:21)
[2019-02-17] MEDS: SODIUM CHLORIDE 0.9% 1,000 ML IV SCH (14:43)
--- NOTE | 2019-02-17 15:30 | PN ---
PROGRESS NOTE Mr. Cook is a patient who came in with shortness of breath, fever, and there is a question of some inflammation of his discs. He is having septic workup performed an MRI. He has had stent of mid LAD performed about a year ago. Recent cardiac cath in the last month revealed that this area was widely patent with a diagonal disease for which no intervention is necessary. Vitals are stable. He has no further chest pain. Breathing is easier, denies chest pain, S1-S2 heard normally, short systolic murmur noted. Lungs reveal improved air entry. Abdomen and lower extremity exam unchanged. Plan is to continue current medications and see what the MRI shows regarding this inflammation or infection of the disc. Prognosis remains guarded. MMODL / IJN: [id number] /
--- NOTE | 2019-02-17 16:58 | P.CNOR ---
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 Patient presented to the emergency department yesterday, 02/16/2019, after having increased shortness of breath and chest pain. At that time he was found to have an elevated d-dimer. CT of the chest was performed. CT was negative for pulmonary embolism. He was found to have suspected discitis at T11-12 with bony endplate changes and erosion. He was also found to have elevated level of troponin which continued to increase during his presentation to the emergency department. He does have history of recent stent placement approximately [address] Beckman. Cardiac catheterization was performed which showed patent LAD stent. Patient does have history of 2 previous stent placements performed in January [address] Alejo. Patient was also found to have a significant urinary tract infection. He states he has been battling urinary tract infections over the past 2 years. He follows with Dr. Ryan in urology. Over the past several days prior to admission he has been urinating blood. Prior to his presentation emergency department he had been placed on Macrobid. Patient has been seen and examined by cardiology during this admission as well as infectious disease. He continues to have elevated troponin which is elevated further to 0.187 this morning. He is currently on vancomycin and Rocephin. He was able to have an MRI of the thoracic spine performed this morning. Patient denies any lower extremity weakness or radiculopathy bilaterally. He states his pain is most significant at the lower lumbar spine. He is not currently complaining of significant thoracic back pain. Hair catheter is intact. Urine culture has been obtained. He does not have an elevated WBC.. Past Medical History Past Medical History: Coronary Artery Disease (CAD), Heart Failure, Deep Vein Thrombosis (DVT), Hyperlipidemia, Pneumonia, Prostate Disorder, Pulmonary Embolus (PE) Additional Past Medical History / Comment(s): R leg DVT, urinary retention, BPH with surgery, UTI with sepsis, bladder stones with surgery, chronic anemia, ch ronic low back pain, neuropathy R foot, recent sinus problems. History of Any Multi-Drug Resistant Organisms: None Reported Past Surgical History: Appendectomy, Heart Catheterization, Heart Catheterization With Stent, Prostate Surgery Additional Past Surgical History / Comment(s): Bladder stone removal, TURP, colonoscopy, cardiac caths with last one done 01/25/19 treat medically. Past Anesthesia/Blood Transfusion Reactions: No Reported Reaction Date of Last Stent Placement:: February 23, 2018 Smoking Status: Never smoker - Past Family History Father Family Medical History: No Reported History Additional Family Medical History / Comment(s): Father was healthy and lived to be 95 yrs old. Mother Family Medical History: Hypertension Additional Family Medical History / Comment(s): Mother of a brain tumor at the age of 75yrs. Pt states they never found out if it was cancerous. Medications and Allergies Home Medications Medication Instructions Recorded Confirmed Type Aspirin 81 mg PO DAILY #30 chew 02/24/18 02/16/19 Rx Atorvastatin [Lipitor] 80 mg PO HS #30 tab 02/24/18 02/16/19 Rx Clopidogrel [Plavix] 75 mg PO DAILY #30 tab 02/24/18 02/16/19 Rx Nitroglycerin Sl Tabs [Nitrostat] 0.4 mg SUBLINGUAL Q5M PRN #30 tab 02/24/18 02/16/19 Rx Gabapentin [Neurontin] 300 mg PO TID 08/24/18 02/16/19 History Loratadine [Claritin] 10 mg PO DAILY PRN 08/24/18 02/16/19 History Tamsulosin [Flomax] 0.4 mg PO BID 09/09/18 02/16/19 History Nitrofurantoin Monohyd/M-Cryst 100 mg PO Q12HR 02/16/19 02/16/19 History [Macrobid] Allergies Allergy/AdvReac Type Severity Reaction Status Date / Time No Known Allergies Allergy Verified 02/16/19 08:18 Physical Examination Physical exam: Patient is awake, alert, and oriented 3 Vital signs stable Good chest excursion with deep inspiration and expiration Examination of lumbar spine reveals skin is intact with no abrasions, lacerations, or bruises; no erythema, purulence or signs of infection No pain with palpation along the midline of the thoracic spine Mild pain with palpation along the midline of the lower lumbar spine Dorsiflexion, plantarflexion, and extensor hallucis longus positive sustained bilaterally Lower extremity strength 5/5 bilaterally Patient is able to lift legs independently off bed without significant difficulty No lower extremity hyperreflexia bilaterally Straight leg test negative bilateral lower extremities No signs or symptoms of DVT; no calf pain No pain with internal and external rotation of the hips bilaterally Neurovascularly intact Results Pertinent studies: MRI of the thoracic spine taken on 02/17/2019: T11-T12 endplate erosions, intradiscal fluid, and associated mild endplate enhancement which are new as compared to previous CT taken on 09/01/2018 in which these findings are suggestive of discitis osteomyelitis; no paravertebral or epidural abscess; multilevel thoracic mild degenerative disc disease with mild neural foraminal narrowing with narrowing more moderate at T1-2, T2-3, T10-T11, and T11-T12; opacities in the lungs have increased as compared to CT performed yesterday; prominent atelectasis or underlining pneumonitis are considerations CT of the chest performed on 02/16/2019: Correlate for possible discitis at T11- 12; no evidence of pulmonary embolism - Labs Labs: Abnormal Lab Results - Last 24 Hours (Table) 02/16/19 02/16/19 02/16/19 Range/Units 07:10 09:32 13:19 RBC (4.30-5.90) m/uL Hgb (13.0-17.5) gm/dL Hct (39.0-53.0) % RDW (11.5-15.5) % Lymphocytes # (1.0-4.8) k/uL ESR (0-15) mm/hr APTT (22.0-30.0) sec D-Dimer 3.22 H (<0.60) mg/L FEU Troponin I 0.121 H* (0.000-0.034) ng/mL C-Reactive Protein (<10.0) mg/L Urine Protein 1+ H (Negative) Urine Blood Moderate H (Negative) Ur Leukocyte Esterase Large H (Negative) Urine RBC 53 H (0-5) /hpf Urine WBC >182 H (0-5) /hpf Urine WBC Clumps Few H (None) /hpf Hyaline Casts 10 H (0-2) /lpf Urine Mucus Occasional H (None) /hpf 02/16/19 02/16/19 02/16/19 Range/Units 17:28 17:28 18:47 RBC (4.30-5.90) m/uL Hgb (13.0-17.5) gm/dL Hct (39.0-53.0) % RDW (11.5-15.5) % Lymphocytes # (1.0-4.8) k/uL ESR 41 H (0-15) mm/hr APTT (22.0-30.0) sec D-Dimer (<0.60) mg/L FEU Troponin I 0.163 H* (0.000-0.034) ng/mL C-Reactive Protein 148.0 H (<10.0) mg/L Urine Protein (Negative) Urine Blood (Negative) Ur Leukocyte Esterase (Negative) Urine RBC (0-5) /hpf Urine WBC (0-5) /hpf Urine WBC Clumps (None) /hpf Hyaline Casts (0-2) /lpf Urine Mucus (None) /hpf 02/16/19 02/17/19 02/17/19 Range/Units 23:41 07:26 07:26 RBC 3.25 L (4.30-5.90) m/uL Hgb 9.1 L D (13.0-17.5) gm/dL Hct 29.2 L (39.0-53.0) % RDW 15.8 H (11.5-15.5) % Lymphocytes # 0.5 L (1.0-4.8) k/uL ESR (0-15) mm/hr APTT 36.9 H 40.8 H (22.0-30.0) sec D-Dimer (<0.60) mg/L FEU Troponin I (0.000-0.034) ng/mL C-Reactive Protein (<10.0) mg/L Urine Protein (Negative) Urine Blood (Negative) Ur Leukocyte Esterase (Negative) Urine RBC (0-5) /hpf Urine WBC (0-5) /hpf Urine WBC Clumps (None) /hpf Hyaline Casts (0-2) /lpf Urine Mucus (None) /hpf 02/17/19 Range/Units 07:26 RBC (4.30-5.90) m/uL Hgb (13.0-17.5) gm/dL Hct (39.0-53.0) % RDW (11.5-15.5) % Lymphocytes # (1.0-4.8) k/uL ESR (0-15) mm/hr APTT (22.0-30.0) sec D-Dimer (<0.60) mg/L FEU Troponin I 0.187 H* (0.000-0.034) ng/mL C-Reactive Protein (<10.0) mg/L Urine Protein (Negative) Urine Blood (Negative) Ur Leukocyte Esterase (Negative) Urine RBC (0-5) /hpf Urine WBC (0-5) /hpf Urine WBC Clumps (None) /hpf Hyaline Casts (0-2) /lpf Urine Mucus (None) /hpf Microbiology - Last 24 Hours (Table) 02/16/19 07:35 Blood Culture - Preliminary Blood No Growth after 24 hours 02/16/19 09:32 Urine Culture - Preliminary Urine,Voided H & H 02/16/19 02/17/19 Range/Units 07:10 07:26 Hgb 11.0 L 9.1 L D (13.0-17.5) gm/dL Hct 33.8 L 29.2 L (39.0-53.0) % Coagulation 02/16/19 Range/Units 07:10 INR 1.2 H (<1.2) Result Diagrams: 02/17/19 07:26 02/16/19 07:10 Assessment and Plan Assessment: Assessment: 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 degenerative disc disease Sealy pain Urinary tract infection History of recent cardiac stent placement in January 2019 History of previous cardiac stent placement January 2018 Elevated troponin Elevated d-dimer History of prostate disorder History of hypertension History of coronary artery disease (1) Osteomyelitis of thoracic spine Current Visit: Yes Status: Acute Code(s): M46.24 - OSTEOMYELITIS OF VERTEBRA, THORACIC REGION SNOMED Code(s): 90810675 (2) Low back pain Current Visit: Yes Status: Acute Code(s): M54.5 - LOW BACK PAIN SNOMED Code(s): 287647641 (3) Thoracic degenerative disc disease Current Visit: Yes Status: Acute Code(s): M51.34 - OTHER INTERVERTEBRAL DISC DEGENERATION, THORACIC REGION SNOMED Code(s): 03105249 (4) History of heart artery stent Current Visit: Yes Status: Acute Code(s): Z95.5 - PRESENCE OF CORONARY ANGIOPLASTY IMPLANT AND GRAFT SNOMED Code(s): 610711626 (5) Chest pain Current Visit: Yes Status: Acute Code(s): R07.9 - CHEST PAIN, UNSPECIFIED SNOMED Code(s): 41305614 (6) Urinary tract infection Current Visit: Yes Status: Acute Code(s): N39.0 - URINARY TRACT INFECTION, SITE NOT SPECIFIED SNOMED Code(s): 17914496 (7) Hypertension Current Visit: No Status: Acute Code(s): I10 - ESSENTIAL (PRIMARY) HYPER TENSION SNOMED Code(s): 14641378 (8) Troponin level elevated Current Visit: No Status: Acute Code(s): R74.8 - ABNORMAL LEVELS OF OTHER SERUM ENZYMES SNOMED Code(s): 890912543 Plan: Plan: 1. Patient has been discussed in detail with Dr. Pedro Buckner. Imaging has been reviewed including CT of the chest and MRI of the thoracic spine. 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 At this time, we'll plan to continue with conservative treatment. Patient is currently being seen and examined by infectious disease and is currently on vancomycin and Rocephin. Patient does have other significant medical diagnoses including urinary tract infection and recent cardiac stent placement. During his treatment and evaluation he was found to have elevated cardiac enzymes. He continues to be seen and examined by cardiology. We are not currently planning for acute surgical intervention in regards to his thoracic discitis osteomyelitis. We did discussed if he were to fail conservative treatment options and needed to undergo surgical intervention, this would be performed at tertiary facility given the approach necessary for the appropriate surgery. At this time, we discussed patient should continue to follow with infectious disease and continue with their recommendations for IV antibiotic treatment. We will continue to follow patient. 2. Patient will continue to be seen examined by medicine and cardiology for his other medical conditions including urinary tract infection, recent cardiac stent placement, and elevated troponin levels Time with Patient: Greater than 30 (Including obtaining history, physical examination, reviewing of imaging, and dictation.) <Devante Buckner - Last Filed: 02/18/19 09:29> Physical Examination Osteopathic Statement: *. No significant issues noted on an osteopathic structural exam other than those noted in the History and Physical/Consult. Results - Labs Labs: Abnormal Lab Results - Last 24 Hours (Table) 02/17/19 02/17/19 02/18/19 Range/Units 07:26 16:03 00:22 RBC (4.30-5.90) m/uL Hgb (13.0-17.5) gm/dL Hct (39.0-53.0) % MCHC (31.0-37.0) g/dL RDW (11.5-15.5) % Lymphocytes # (1.0-4.8) k/uL APTT 45.8 H 51.1 H (22.0-30.0) sec Chloride (98-107) mmol/L BUN (9-20) mg/dL Glucose (74-99) mg/dL Calcium (8.4-10.2) mg/dL Troponin I 0.187 H* (0.000-0.034) ng/mL 02/18/19 02/18/19 02/18/19 Range/Units 06:07 06:07 06:07 RBC 3.15 L (4.30-5.90) m/uL Hgb 8.7 L (13.0-17.5) gm/dL Hct 28.2 L (39.0-53.0) % MCHC 30.9 L (31.0-37.0) g/dL RDW 15.7 H (11.5-15.5) % Lymphocytes # 0.7 L (1.0-4.8) k/uL APTT 47.9 H (22.0-30.0) sec Chloride 108 H (98-107) mmol/L BUN 24 H (9-20) mg/dL Glucose 126 H (74-99) mg/dL Calcium 8.1 L (8.4-10.2) mg/dL Troponin I (0.000-0.034) ng/mL Microbiology - Last 24 Hours (Table) 02/16/19 17:28 Blood Culture - Preliminary Blood No Growth after 24 hours 02/16/19 09:32 Urine Culture - Preliminary Urine,Voided Group D Enterococcus 02/16/19 07:35 Blood Culture - Preliminary Blood No Growth after 24 hours H & H 02/16/19 02/17/19 02/18/19 Range/Units 07:10 07:26 06:07 Hgb 11.0 L 9.1 L D 8.7 L (13.0-17.5) gm/dL Hct 33.8 L 29.2 L 28.2 L (39.0-53.0) % Coagulation 02/16/19 Range/Units 07:10 INR 1.2 H (<1.2) Result Diagrams: 02/18/19 06:07 02/18/19 06:07 Assessment and Plan Assessment: The patient is seen and examined today at bedside. I reviewed his images yesterday on 02/17/2019 and discussed the case with our physician ice cream freezer assistant and I agree with the dictation above. I reviewed his chart and saw the patient today. He is having pain over his lower back. He is not complaining of any lower extremity numbness tingling or weakness. He feels his chest tightness is improved since his been in Hospital. He still having significant troubles with his urine and he has a Hair intact with significant red blood in his urine. He is continue medical management. The computed tomography scan of the spine and the MRI of thoracic spine is reviewed. It shows significant inflammation and increased signal at T11 12 indicating discitis. There is no epidural abscess. There is no significant stenosis. There is no spinal cord signal change. There is some bony erosion at T 11 and 12. Assessment and plan T11 12 discitis without neurologic decline. No epidural abscess Thoracic and lower back pain Elevated troponins with history of coronary artery disease Chronic any tract infection with history of prostate disorder In terms of his discitis at T11 12 the plan will be to manage his medically. Infectious disease is involved and he will be on long-term IV antibiotics for his T11 12 discitis. He is not having neurologic decline and does not have an acute indication for surgical intervention for his spine at this point. We'll plan to continue conservative management and medical care for him. We do not have any surgical plans in terms of his spine. I discussed this with the patient discuss his findings and treatment plan. He's continuing medical management for his numerous other issues including his elevated troponins cardiac disease and urinary tract infection prostate disorder appropriately. We can see him essentially on an as-needed basis.
[2019-02-17] MEDS: ATORVASTATIN 80 MG TAB PO SCH (21:21)
--- NOTE | 2019-02-17 22:03 | PN ---
PROGRESS NOTE DATE OF SERVICE: 02/17/2019. REASON FOR FOLLOWUP: Sepsis, UTI, and the diskitis. INTERVAL HISTORY: The patient is currently afebrile. The patient has been breathing comfortably. The patient did have pain to the mid back area, though no worsening. No abdominal pain. No diarrhea. PHYSICAL EXAMINATION: Blood pressure 134/63 with a pulse of 74, temperature 98.2. He is 99% on 2 L nasal cannula. General description is an elderly male lying in bed in no distress. Respiratory system: Unlabored breathing. Clear to auscultation anteriorly. Heart S1, S2. Regular rate and rhythm. Abdomen soft, no tenderness. Extremities: No edema of the feet. LABS: Hemoglobin 9.1, white count 8.3. CRP is 140 sed rate is 41. Blood culture has been negative so far. Urine showing group D Enterococcus. DIAGNOSTIC IMPRESSION AND PLAN: Patient admitted to the hospital with sepsis source is a combination of urinary tract infection and also T9-12 diskitis in this patient who has grown the same Enterococcus for the last few months, questionably same pathogen. Unfortunately unable to do a biopsy or aspirate of the area for microbiological diagnosis as the patient is on Plavix. The patient antibiotic will be adjusted to ampicillin 2 g q.4 for diskitis. The patient continues to be high risk of nephrotoxicity from added gentamicin for now as the patient is not bacteremic and monitor his clinical course closely. Questions and concerns were answered. MMODL / IJN: [id number] /
[2019-02-18] MEDS: IPRATROPIUM-ALBUTEROL 3 ML NEB INHALATION SCH ×6 (00:25→20:31)
[2019-02-18] MEDS: NITROGLYCERIN OINT 1 INCH/GM PACKET TOPICAL SCH ×4 (01:05→19:05)
[2019-02-18] MEDS: AMPICILLIN 2,000 MG in SODIUM CHLORIDE 0.9% 100 ML IVPB SCH ×6 (01:05→21:28)
[2019-02-18 06:22] LABS: Basophils % (A) 0 %; Eosinophils # (A) 0.3 k/uL (0-0.7); Eosinophils % (A) 6 %; HCT 28.2 % (39.0-53.0); HGB 8.7 gm/dL (13.0-17.5); Hypochromasia Slight; Lymphocytes # (A) 0.7 k/uL (1.0-4.8); Lymphocytes % (A) 12 %; MCH 27.7 pg (25.0-35.0); MCHC 30.9 g/dL (31.0-37.0); MCV 89.8 fL (80.0-100.0); Mean Platelet Volume 8.4; Monocytes # (A) 0.4 k/uL (0-1.0); Monocytes % (A) 8 %; Neutrophils # (A) 3.8 k/uL (1.3-7.7); Neutrophils % (A) 71 %; Platelet Count 161 k/uL (150-450); RBC 3.15 m/uL (4.30-5.90); RDW 15.7 % (11.5-15.5); WBC 5.3 k/uL (3.8-10.6)
[2019-02-18 07:20] LABS: Anion Gap 5 mmol/L; Blood Urea Nitrogen 24 mg/dL (9-20); Calcium 8.1 mg/dL (8.4-10.2); Carbon Dioxide 28 mmol/L (22-30); Chloride 108 mmol/L (98-107); Glucose 126 mg/dL (74-99); Potassium 3.5 mmol/L (3.5-5.1); Sodium 141 mmol/L (137-145)
[2019-02-18] MEDS: SYMBICORT 160-4.5 MCG INHALER INHALATION SCH ×2 (07:25→20:32)
[2019-02-18] MEDS: ASPIRIN 325 MG TAB PO SCH (08:42)
[2019-02-18] MEDS: CLOPIDOGREL 75 MG TAB PO SCH (08:42)
[2019-02-18] MEDS: GABAPENTIN 300 MG CAP PO SCH ×3 (08:42→21:28)
[2019-02-18] MEDS: TAMSULOSIN 0.4 MG CAP.ER.24H PO SCH ×2 (08:42→21:28)
[2019-02-18] MEDS: SENNOSIDES-DOCUSATE SODIUM 1 EACH TAB PO SCH (08:42)
[2019-02-18] MEDS: SIMETHICONE 80 MG CHEWABLE PO SCH ×4 (08:48→21:28)
--- NOTE | 2019-02-18 12:14 | P.PN ---
Subjective Progress Note Date: 02/18/19 This is a very pleasant 78-year-old gentleman who follows with Dr. Lancaster as his doll eye setter . He has a history of coronary artery disease with previous stent placements most recently in December 2018, prior to that January 2018, congestive heart failure preserved left ventricular systolic function ejection fraction 55- 60%, PE/DVT, frequent urinary tract infections and dysuria. He's been treated with Macrobid and has a history of enterococcus. He presented here to the emergency room yesterday with complaints of increasing shortness of breath and chest discomfort. Troponin 0.163, 0.187. ProBNP 2530. CT angiogram ruled out pulmonary embolism but there was noted discitis at T11 and 12. Influenza screen was negative. Blood and urine cultures pending. Patient underwent a thoracic MRI which revealed evidence suggestive of discitis and osteomyelitis, he has been initiated on antibiotics and infectious disease is following. His troponin abnormality was not consistent with any acute coronary syndrome. He was also noted today to have some hematuria for which his IV heparin has been discontinu ed. Objective - Vital Signs Vital signs: Vital Signs Temp 98.8 F 02/18/19 11:34 Pulse 61 02/18/19 11:34 Resp 20 02/18/19 11:34 BP 122/58 02/18/19 11:34 Pulse Ox 99 02/18/19 11:34 Intake & Output 02/17/19 02/18/19 02/18/19 18:59 06:59 18:59 Intake Total 714.946 840 240 Output Total 1400 900 Balance 714.946 -560 -660 Weight 94.7 kg Intake: Intake, IV Titration 234.946 600 Amount Ampicillin 2,000 mg In 200 Sodium Chloride 0.9% 100 ml @ 200 mls/hr IVPB Q4HR [facility] Rx#:[id number] Heparin Sod,Pork in 0.45% 234.946 NaCl 25,000 unit In 0.45 % NaCl 1 250ml.bag @ 10. 75 UNITS/KG/HR 9.998 mls/ hr IV .Q24H [facility] Rx#: [id number] Sodium Chloride 0.9% 1, 400 000 ml @ 40 mls/hr IV . Q24H [facility] Rx#:[id number] Oral 480 240 240 Output: Urine 1400 900 Other: Voiding Method Indwelling Catheter Indwelling Catheter Indwelling Catheter - Exam GENERAL EXAM: Alert, fairly comfortable in no apparent distress. On 3 L nasal cannula. HEAD: Normocephalic. EYES: Normal reaction of pupils, equal size. NOSE: Clear with pink turbinates. THROAT: No erythema or exudates. NECK: No masses, no JVD. CHEST: No chest wall deformity. LUNGS: Equal air entry with no crackles, wheeze, rhonchi or dullness. CVS: S1 and S2 normal with no audible murmur, regular rhythm. ABDOMEN: No hepatosplenomegaly, normal bowel sounds, no guarding or rigidity. SPINE: No scoliosis or deformity SKIN: No rashes CENTRAL NERVOUS SYSTEM: No focal deficits, tone is normal in all 4 extremities. EXTREMITIES: There is no peripheral edema. No clubbing, no cyanosis. Sury pheral pulses are intact. - Labs CBC & Chem 7: 02/18/19 06:07 02/18/19 06:07 Labs: Abnormal Lab Results - Last 24 Hours (Table) 02/17/19 02/18/19 02/18/19 Range/Units 16:03 00:22 06:07 RBC 3.15 L (4.30-5.90) m/uL Hgb 8.7 L (13.0-17.5) gm/dL Hct 28.2 L (39.0-53.0) % MCHC 30.9 L (31.0-37.0) g/dL RDW 15.7 H (11.5-15.5) % Lymphocytes # 0.7 L (1.0-4.8) k/uL APTT 45.8 H 51.1 H (22.0-30.0) sec Chloride (98-107) mmol/L BUN (9-20) mg/dL Glucose (74-99) mg/dL Calcium (8.4-10.2) mg/dL 02/18/19 02/18/19 Range/Units 06:07 06:07 RBC (4.30-5.90) m/uL Hgb (13.0-17.5) gm/dL Hct (39.0-53.0) % MCHC (31.0-37.0) g/dL RDW (11.5-15.5) % Lymphocytes # (1.0-4.8) k/uL APTT 47.9 H (22.0-30.0) sec Chloride 108 H (98-107) mmol/L BUN 24 H (9-20) mg/dL Glucose 126 H (74-99) mg/dL Calcium 8.1 L (8.4-10.2) mg/dL Microbiology - Last 24 Hours (Table) 02/16/19 07:35 Blood Culture - Preliminary Blood No Growth after 48 hours 02/16/19 17:28 Blood Culture - Preliminary Blood No Growth after 24 hours 02/16/19 09:32 Urine Culture - Preliminary Urine,Voided Group D Enterococcus Assessment and Plan Plan: Impression: #1 Sepsis secondary to suspected urinary tract infection and discitis noted on MRI and CT angiogram. 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 There are endplate erosions and intradiscal fluid and associated mild endplate enhancement and T11-T12. #2 Chest pain in a patient with known history of coronary artery disease and recent stent placements. Stenting of the mid LAD about a year ago, recent heart cath last month revealed the stented area to be widely patent. #3 Previous history of PE/DVT. Current CT angiogram ruled out acute pulmonary embolism. #4 Benign prosthetic hypertrophy. Previous TURP #5 Urinary retention requiring indwelling Hair catheter. #6 Previous history of UTI/sepsis. #7 Chronic anemia. #8 abnormality in troponin not consistent with acute coronary syndrome. Plan We'll discontinue the IV heparin today, we will follow him along with you now on an as-needed basis only, please don't hesitate to call with any questions. DNP note has been reviewed, I agree with a documented findings and plan of care. Patient was seen and examined.
--- NOTE | 2019-02-18 13:21 | P.PN ---
Subjective 70-year-old pleasant gentleman was admitted secondary to sepsis from possible discitis as well as urinary tract infection both of which probably from enterococcus. Patient started having hematuria again today IV heparin is being discontinued and patient will be switched 81 mg of aspirin and Plavix will be continued as well. Patient did have mildly elevated troponins, no further intervention from cardiology perspective is being planned and patient had MRI of the spine which did show significant discitis with T11-T12 endplate erosions mildly narrowed spinal canal, no epidural abscess was evident on MRI. He continues to have significant back pain Constitutional: Denied any fatigue denied any fever. Cardio vascular: denied any chest pain, palpitations Gastrointestinal denied any nausea vomiting Pulmonary: Denied any shortness of breath cough Neurologic denied any new focal deficits All inpatient medications were reviewed and appropriate changes in these medications as dictated in the interval history and assessment and plan. Objective - Vital Signs Vital signs: Vital Signs Temp 98.8 F 02/18/19 11:34 Pulse 61 02/18/19 11:34 Resp 20 02/18/19 11:34 BP 122/58 02/18/19 11:34 Pulse Ox 99 02/18/19 11:34 Intake & Output 02/17/19 02/18/19 02/18/19 18:59 06:59 18:59 Intake Total 714.946 840 340 Output Total 1400 900 Balance 714.946 -560 -560 Weight 94.7 kg Intake: Intake, IV Titration 234.946 600 Amount Ampicillin 2,000 mg In 200 Sodium Chloride 0.9% 100 ml @ 200 mls/hr IVPB Q4HR [facility] Rx#:[id number] Heparin Sod,Pork in 0.45% 234.946 NaCl 25,000 unit In 0.45 % NaCl 1 250ml.bag @ 10. 75 UNITS/KG/HR 9.998 mls/ hr IV .Q24H [facility] Rx#: [id number] Sodium Chloride 0.9% 1, 400 000 ml @ 40 mls/hr IV . Q24H [facility] Rx#:[id number] Oral 480 240 340 Output: Urine 1400 900 Other: Voiding Method Indwelling Catheter Indwelling Catheter Indwelling Catheter - Exam PHYSICAL EXAMINATION: GENERAL: The patient is alert and oriented x3, not in any acute distress. Well developed, well nourished. HEENT: Pupils are round and equally reacting to light. EOMI. No scleral icterus. No conjunctival pallor. Normocephalic, atraumatic. No pharyngeal erythema. No thyromegaly. CARDIOVASCULAR: S1 and S2 present. No murmurs, rubs, or gallops. PULMONARY: Chest is clear to auscultation, no wheezing or crackles. ABDOMEN: Soft, nontender, nondistended, normoactive bowel sounds. No palpable organomegaly. MUSCULOSKELETAL: No joint swelling or deformity. EXTREMITIES: No cyanosis, clubbing, or pedal edema. NEUROLOGICAL: Gross neurological examination did not reveal any focal deficits. SKIN: No rashes. - Labs CBC & Chem 7: 02/18/19 06:07 02/18/19 06:07 Labs: Abnormal Lab Results - Last 24 Hours (Table) 02/17/19 02/18/19 02/18/19 Range/Units 16:03 00:22 06:07 RBC 3.15 L (4.30-5.90) m/uL Hgb 8.7 L (13.0-17.5) gm/dL Hct 28.2 L (39.0-53.0) % MCHC 30.9 L (31.0-37.0) g/dL RDW 15.7 H (11.5-15.5) % Lymphocytes # 0.7 L (1.0-4.8) k/uL APTT 45.8 H 51.1 H (22.0-30.0) sec Chloride (98-107) mmol/L BUN (9-20) mg/dL Glucose (74-99) mg/dL Calcium (8.4-10.2) mg/dL 02/18/19 02/18/19 Range/Units 06:07 06:07 RBC (4.30-5.90) m/uL Hgb (13.0-17.5) gm/dL Hct (39.0-53.0) % MCHC (31.0-37.0) g/dL RDW (11.5-15.5) % Lymphocytes # (1.0-4.8) k/uL APTT 47.9 H (22.0-30.0) sec Chloride 108 H (98-107) mmol/L BUN 24 H (9-20) mg/dL Glucose 126 H (74-99) mg/dL Calcium 8.1 L (8.4-10.2) mg/dL Microbiology - Last 24 Hours (Table) 02/16/19 07:35 Blood Culture - Preliminary Blood No Growth after 48 hours 02/16/19 17:28 Blood Culture - Preliminary Blood No Growth after 24 hours 02/16/19 09:32 Urine Culture - Preliminary Urine,Voided Group D Enterococcus Assessment and Plan Plan: Sepsis: Secondary urinary tract infection and discitis of T11-T12 thoracic vertebrae, continue with ampicillin 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 -Possible non-ST elevation myocardial infarction: Cardiology evaluated the patient, continued on aspirin and Plavix IV heparin is being discontinued continue with the rest of his medications for coronary artery disease -Chronic urinary retention: Patient will be resumed on Flomax, patient may need a Hair catheter. Follow-up with urology as an outpatient -Coronary Artery disease -DVT in the past presently not on any anticoagulation as an outpatient -Hyperlipidemia -Benign prostatic hypertrophy Patient will need oncology prophylaxis and is on IV heparin for non-ST elevation myocardial infarction.
--- NOTE | 2019-02-18 14:55 | P.PN ---
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 Muñoz as his primary care physician. He has a history of coronary artery disease with previous stent placements most recently in December 2018, prior to that January 2018, congestive heart failure preserved left ventricular systolic function ejection fraction 55-60%, PE/DVT, frequent urinary tract infections and dysuria. He's been treated with Macrobid and has a history of enterococcus. He presented here to the emergency room yesterday with complaints of increasing shortness of breath and chest discomfort. Troponin 0.163, 0.187. ProBNP 2530. CT angiogram ruled out pulmonary embolism but there was noted discitis at T11 and 12. Influenza screen was negative. Blood and urine cultures pending. White count 8.3. Hemoglobin 9.1. Creatinine 1.05. Lactic acid 1.8. He has had a T-max of 100.5. He is maintaining good O2 saturations in the 90s on 3 L/m per nasal cannula. The patient is seen today in consultation on the selective care unit. He is awake and alert in no acute distress. The patient is a lifelong nonsmoker. He has not been seen by a ground water pump installer in the past. No home oxygen. No home inhalers. Shortness of breath less likely to be pulmonary related. Chest x-ray shows no acute cardiopulmonary process. The patient is seen today 02/18/2019 in follow-up on the selective care unit. He is awake and alert in no acute distress. He is resting fairly comfortably in bed. He is maintaining O2 saturations in the upper 90s on 2 L/m per nasal cannula. He is afebrile. Hemodynamically stable. Urine cultures positive for group D enterococcus. The cultures are pending. There is thick MRI did reveal discitis osteomyelitis and T11-12. Count 5.3. Hemoglobin 8.7. Creatinine 0.86. He has been having hematuria and he is currently off the aspirin, Plavix and heparin drip. He is being followed by infectious disease and is currently o n ampicillin. Objective - Vital Signs Vital signs: Vital Signs Temp 98.8 F 02/18/19 11:34 Pulse 61 02/18/19 11:34 Resp 20 02/18/19 11:34 BP 122/58 02/18/19 11:34 Pulse Ox 99 02/18/19 11:34 Intake & Output 02/17/19 02/18/19 02/18/19 18:59 06:59 18:59 Intake Total 714.946 840 340 Output Total 1400 900 Balance 714.946 -560 -560 Weight 94.7 kg Intake: Intake, IV Titration 234.946 600 Amount Ampicillin 2,000 mg In 200 Sodium Chloride 0.9% 100 ml @ 200 mls/hr IVPB Q4HR [facility] Rx#:[id number] Heparin Sod,Pork in 0.45% 234.946 NaCl 25,000 unit In 0.45 % NaCl 1 250ml.bag @ 10. 75 UNITS/KG/HR 9.998 mls/ hr IV .Q24H [facility] Rx#: [id number] Sodium Chloride 0.9% 1, 400 000 ml @ 40 mls/hr IV . Q24H [facility] Rx#:[id number] Oral 480 240 340 Output: Urine 1400 900 Other: Voiding Method Indwelling Catheter Indwelling Catheter Indwelling Catheter - Exam GENERAL EXAM: Alert, fairly comfortable in no apparent distress. On 2 L nasal cannula. HEAD: Normocephalic. EYES: Normal reaction of pupils, equal size. NOSE: Clear with pink turbinates. THROAT: No erythema or exudates. NECK: No masses, no JVD. CHEST: No chest wall deformity. LUNGS: Equal air entry with no crackles, wheeze, rhonchi or dullness. CVS: S1 and S2 normal with no audible murmur, regular rhythm. ABDOMEN: No hepatosplenomegaly, normal bowel sounds, no guarding or rigidity. SPINE: No scoliosis or deformity SKIN: No rashes CENTRAL NERVOUS SYSTEM: No focal deficits, tone is normal in all 4 extremities. EXTREMITIES: There is no peripheral edema. No clubbing, no cyanosis. Peripheral pulses are intact. - Labs CBC & Chem 7: 02/18/19 06:07 02/18/19 06:07 Labs: Abnormal Lab Results - Last 24 Hours (Table) 02/17/19 02/18/19 02/18/19 Range/Units 16:03 00:22 06:07 RBC 3.15 L (4.30-5.90) m/uL Hgb 8.7 L (13.0-17.5) gm/dL Hct 28.2 L (39.0-53.0) % MCHC 30.9 L (31.0-37.0) g/dL RDW 15.7 H (11.5-15.5) % Lymphocytes # 0.7 L (1.0-4.8) k/uL APTT 45.8 H 51.1 H (22.0-30.0) sec Chloride (98-107) mmol/L BUN (9-20) mg/dL Glucose (74-99) mg/dL Calcium (8.4-10.2) mg/dL 02/18/19 02/18/19 Range/Units 06:07 06:07 RBC (4.30-5.90) m/uL Hgb (13.0-17.5) gm/dL Hct (39.0-53.0) % MCHC (31.0-37.0) g/dL RDW (11.5-15.5) % Lymphocytes # (1.0-4.8) k/uL APTT 47.9 H (22.0-30.0) sec Chloride 108 H (98-107) mmol/L BUN 24 H (9-20) mg/dL Glucose 126 H (74-99) mg/dL Calcium 8.1 L (8.4-10.2) mg/dL Microbiology - Last 24 Hours (Table) 02/16/19 07:35 Blood Culture - Preliminary Blood No Growth after 48 hours 02/16/19 17:28 Blood Culture - Preliminary Blood No Growth after 24 hours 02/16/19 09:32 Urine Culture - Preliminary Urine,Voided Group D Enterococcus Assessment and Plan Assessment: Impression: #1 Sepsis secondary to suspected group D enterococcus urinary tract infection and discitis osteomyelitis. There are endplate erosions and intradiscal fluid and associated mild endplate enhancement and T11-T12. Patient is currently on ampicillin. #2 Chest pain in a patient with known history of coronary artery disease and recent stent placements. #3 Previous history of PE/DVT. Current CT angiogram ruled out acute pulmonary embolism. #4 Benign prosthetic hypertrophy. Previous TURP #5 Urinary retention requiring indwelling Hair catheter. #6 Previous history of UTI/sepsis. #7 Chronic anemia. #8 Hematuria. Aspirin, Plavix and heparin drip on hold. Plan: The patient was seen and evaluated by Dr. Conde. He is currently off heparin drip, Plavix, aspirin due to the hematuria. He is currently on ampicillin per ID for the discitis osteomyelitis and group D enterococcus urinary tract infection. No pulmonary complaints today. We will continue to follow make further recommendations based on his clinical status. I, the cosigning physician, performed a history & physical examination of the patient. Lungs sounds are clear. Maintaining good O2 saturations in the 90s on 2 L/m per nasal cannula. I discussed the assessment and plan of care with my nurse practitioner, Keila Alvarez. I attest to the above note as dictated by her.
[2019-02-18] MEDS: SODIUM CHLORIDE 0.9% 1,000 ML IV SCH (20:25)
[2019-02-18] MEDS: ATORVASTATIN 80 MG TAB PO SCH (21:28)
[2019-02-19] MEDS: NITROGLYCERIN OINT 1 INCH/GM PACKET TOPICAL SCH ×4 (00:02→18:47)
[2019-02-19] MEDS: HYDROcodone/APAP 5-325MG 1 EACH TAB PO PRN (00:02)
--- NOTE | 2019-02-19 00:04 | PN ---
PROGRESS NOTE DATE OF SERVICE: 02/18/2019 REASON FOR FOLLOWUP: 1. Thoracic spine diskitis. 2. UTI with Enterococcus faecalis. INTERVAL HISTORY: The patient is afebrile. The patient has been breathing slightly comfortably. Denies having any chest pain. Occasional cough. Pain to the mid back is currently controlled. No nausea, no vomiting or diarrhea. Patient significant hematuria. PHYSICAL EXAMINATION: Blood pressure is 134/67 with a pulse of 83, temperature 98.4. He is 98% on 2 L nasal cannula. General description is an elderly male lying in bed in no distress. RESPIRATORY SYSTEM: Unlabored breathing. Clear to auscultation anteriorly. HEART: S1, S2. Regular rate and rhythm. ABDOMEN: Soft. No tenderness. EXTREMITIES: No edema of the feet. LABS: Hemoglobin 8.7, white count 5.3 with a BUN of 24, creatinine 0.86. Blood culture has been negative. Urine showing Enterococcus faecalis. The patient had Enterococcus faecalis in the urine on November 10, December 22 and February 03, 2019. DIAGNOSTIC IMPRESSION AND PLAN: Patient admitted to hospital with sepsis which is likely multifactorial in this patient who did have a urinary tract infection, urine showing Enterococcus faecalis. Patient also with evidence of diskitis in T11 to T12 levels. This is confirmed on the MRI with no evidence of any abscess or paraspinal fluid collection that could be drained. Unfortunately we were not able to get a microbiological diagnosis. The patient has been on Plavix and a CT-guided aspirate of the area could have been done. Antibiotic could not be withheld because the patient was in the hospital with sepsis. We are presuming that Enterococcus faecalis is the likely pathogen, as he has grown this pathogen consistently since October of 2018. This was explained to the patient and both his and his daughter in layman's terms. A significant amount of time was spent to describe all these condition. Patient is currently on ampicillin 2 grams q.4. Gentamicin was on presentation has found nephrotoxicity. Total amount of time spent was 25 minutes, with more than 50% spent [id number] and counseling. Questions and concerns were answered. MMODL / IJN: [id number] /
[2019-02-19] MEDS: AMPICILLIN 2,000 MG in SODIUM CHLORIDE 0.9% 100 ML IVPB SCH ×7 (00:05→23:39)
[2019-02-19] MEDS: IPRATROPIUM-ALBUTEROL 3 ML NEB INHALATION SCH ×6 (00:08→20:10)
[2019-02-19 07:05] LABS: Basophils % (A) 0 %; Eosinophils # (A) 0.4 k/uL (0-0.7); Eosinophils % (A) 9 %; HCT 25.6 % (39.0-53.0); HGB 8.3 gm/dL (13.0-17.5); Hypochromasia Slight; Lymphocytes # (A) 0.8 k/uL (1.0-4.8); Lymphocytes % (A) 17 %; MCHC 32.3 g/dL (31.0-37.0); MCV 89.8 fL (80.0-100.0); Mean Platelet Volume 6.8; Monocytes # (A) 0.3 k/uL (0-1.0); Monocytes % (A) 7 %; Neutrophils # (A) 2.9 k/uL (1.3-7.7); Neutrophils % (A) 64 %; Platelet Count 171 k/uL (150-450); RBC 2.85 m/uL (4.30-5.90); RDW 15.4 % (11.5-15.5); WBC 4.6 k/uL (3.8-10.6)
[2019-02-19 07:27] LABS: Anion Gap 2 mmol/L; Blood Urea Nitrogen 19 mg/dL (9-20); Calcium 8.3 mg/dL (8.4-10.2); Carbon Dioxide 28 mmol/L (22-30); Chloride 111 mmol/L (98-107); Glucose 112 mg/dL (74-99); Potassium 3.5 mmol/L (3.5-5.1); Sodium 141 mmol/L (137-145)
[2019-02-19] MEDS: SYMBICORT 160-4.5 MCG INHALER INHALATION SCH ×2 (07:34→20:11)
[2019-02-19] MEDS: GABAPENTIN 300 MG CAP PO SCH ×3 (09:13→22:03)
[2019-02-19] MEDS: SENNOSIDES-DOCUSATE SODIUM 1 EACH TAB PO SCH (09:13)
[2019-02-19] MEDS: TAMSULOSIN 0.4 MG CAP.ER.24H PO SCH ×2 (09:14→22:03)
[2019-02-19] MEDS: SIMETHICONE 80 MG CHEWABLE PO SCH ×4 (09:14→22:04)
[2019-02-19] MEDS: ASPIRIN 81 MG PO SCH (09:22)
[2019-02-19] MEDS: CLOPIDOGREL 75 MG TAB PO SCH (09:22)
--- NOTE | 2019-02-19 15:23 | PN ---
PROGRESS NOTE DATE OF SERVICE: 02/19/2019 REASON FOR FOLLOW UP: 1. Thoracic spine diskitis. 2. Urinary tract infection with Enterococcus. INTERVAL HISTORY: The patient is currently afebrile with no fever has been recorded in last 72 hours. The patient is sitting comfortably, still having pain in the mid back area, but no worsening, complaining of some shortness of breath and wheezing. No nausea, no vomiting. No abdominal pain and no diarrhea. PHYSICAL EXAMINATION: Blood pressure 144/70 with pulse of 60, temperature 97.6, he is 99% on 3 L nasal cannula description is an elderly male up in the bed in no distress. RESPIRATORY SYSTEM: Unlabored breathing, occasional wheeze. HEART: S1, S2. Regular rate and rhythm. No murmur ABDOMEN: Soft, no tenderness. EXTREMITIES: No edema of the feet. LABS: Hemoglobin 8.1, white count of 4.6, with a BUN of 19, creatinine 0.85. DIAGNOSTIC IMPRESSION AND PLAN: Patient with Enterococcus faecalis urinary tract infection, recurrent as the patient has had the same pathogen since October. The patient did have mid back pain with CT as well as MRI suspicious for the abdomen, diskitis with no evidence of any paraspinal abscess or fluid collection. Ideally, would have done a CT-guided aspirate of this area for the microbiologic diagnosis: Patient at 3 the level has to be hold for 5 days, which could not be done as the patient recently did have a cardiac stent placement. The patient is in view of the patient's fever responding to the infant more likely the same pathogen responsible for the diskitis and keep the patient on ampicillin 2 g q.4 hours. The patient is high risk of nephrotoxicity from the gentamicin that has not been put on hold. He did have baseline sedimentation rate and CRP. #3 moderate to severely total was present at bedside. Her questions and concerns were answered in layman's terms. MMODL / IJN: [id number] /
--- NOTE | 2019-02-19 15:37 | P.PN ---
Subjective 70-year-old pleasant gentleman was admitted secondary to sepsis from possible discitis as well as urinary tract infection both of which probably from enterococcus. Patient started having hematuria again today IV heparin is being discontinued and patient will be switched 81 mg of aspirin and Plavix will be continued as well. Patient did have mildly elevated troponins, no further intervention from cardiology perspective is being planned and patient had MRI of the spine which did show significant discitis with T11-T12 endplate erosions mildly narrowed spinal canal, no epidural abscess was evident on MRI. He continues to have significant back pain 02/19/2019 Patient's pain is better family has a lot of concerns and questions regarding the his clinical condition aspirin extensive length of time explaining them the plan patient can use to have which area patient's Plavix was held today patient received to his aspirin. Although we cannot hold Plavix too long I'll consult urology. If his hematuria improves patient need to be resumed on Plavix as soon as possible patient will be continued on aspirin patient had a recent stent 2 weeks ago. Patient is a high risk for in-stent stenosis. Ideally infectious disease wanted cultures from the thoracic intervertebral disc but since patient is in aspirin and Plavix, after obtaining cultures will lead to high risk for bleeding into the thoracic spine because of that reason the probable better idea is to continue antibiotics for discitis 8-12 weeks. Same thing was discussed with infectious disease and cardiology along with family. Once his hematuria improves patient need a PICC line need to be discharged to subacute rehabilitation most probably on Friday Constitutional: Denied any fatigue denied any fever. Cardio vascular: denied any chest pain, palpitations Gastrointestinal denied any nausea vomiting Pulmonary: Denied any shortness of breath cough Neurologic denied any new focal deficits All inpatient medications were reviewed and appropriate changes in these medications as dictated in the interval history and assessment and plan. Objective - Vital Signs Vital signs: Vital Signs Temp 97.6 F 02/19/19 11:15 Pulse 76 02/19/19 12:16 Resp 24 02/19/19 11:15 BP 144/71 02/19/19 11:15 Pulse Ox 99 02/19/19 11:15 Intake & Output 02/18/19 02/19/19 02/19/19 18:59 06:59 18:59 Intake Total 580 1000 340 Output Total 1475 900 Balance -895 100 340 Weight 98.5 kg Intake: Intake, IV Titration 520 100 Amount Ampicillin 2,000 mg In 200 100 Sodium Chloride 0.9% 100 ml @ 200 mls/hr IVPB Q4HR [facility] Rx#:[id number] Sodium Chloride 0.9% 1, 320 000 ml @ 40 mls/hr IV . Q24H [facility] Rx#:[id number] Oral 580 480 240 Output: Urine 1475 900 Other: Voiding Method Indwelling Catheter Indwelling Catheter Indwelling Catheter # Bowel Movements 0 - Exam PHYSICAL EXAMINATION: GENERAL: The patient is alert and oriented x3, not in any acute distress. Well developed, well nourished. HEENT: Pupils are round and equally reacting to light. EOMI. No scleral icterus. No conjunctival pallor. Normocephalic, atraumatic. No pharyngeal erythema. No thyromegaly. CARDIOVASCULAR: S1 and S2 present. No murmurs, rubs, or gallops. PULMONARY: Chest is clear to auscultation, no wheezing or crackles. ABDOMEN: Soft, nontender, nondistended, normoactive bowel sounds. No palpable organomegaly. MUSCULOSKELETAL: No joint swelling or deformity. EXTREMITIES: No cyanosis, clubbing, or pedal edema. NEUROLOGICAL: Gross neurological examination did not reveal any focal deficits. SKIN: No rashes. - Labs CBC & Chem 7: 02/19/19 06:22 02/19/19 06:22 Labs: Abnormal Lab Results - Last 24 Hours (Table) 02/19/19 02/19/19 Range/Units 06:22 06:22 RBC 2.85 L (4.30-5.90) m/uL Hgb 8.3 L (13.0-17.5) gm/dL Hct 25.6 L (39.0-53.0) % Lymphocytes # 0.8 L (1.0-4.8) k/uL Chloride 111 H (98-107) mmol/L Glucose 112 H (74-99) mg/dL Calcium 8.3 L (8.4-10.2) mg/dL Microbiology - Last 24 Hours (Table) 02/16/19 07:35 Blood Culture - Preliminary Blood No Growth after 72 hours 02/16/19 17:28 Blood Culture - Preliminary Blood No Growth after 48 hours 02/16/19 09:32 Urine Culture - Final Urine,Voided Enterococcus faecalis Assessment and Plan Plan: Sepsis: Secondary urinary tract infection and discitis of T11-T12 thoracic vertebrae, continue with ampicillin 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 Patient is presently on Unasyn Hematuria because of which heparin was discontinued and management regarding antiplatelet therapy as mentioned above -Possible non-ST elevation myocardial infarction: Patient had a recent stent because of which we cannot hold a dual antiplatelet therapy for to long -Chronic urinary retention: Patient will be resumed on Flomax, patient may need a Hair catheter. ALLERGIES being consulted because of hematuria -Coronary Artery disease -DVT in the past presently not on any anticoagulation as an outpatient -Hyperlipidemia -Benign prostatic hypertrophy No pharmacologic DVT prophylaxis at this time because of significant hematuria
[2019-02-19] MEDS: SODIUM CHLORIDE 0.9% 1,000 ML IV SCH (16:59)
[2019-02-19] MEDS: ATORVASTATIN 80 MG TAB PO SCH (22:03)
[2019-02-20] MEDS: IPRATROPIUM-ALBUTEROL 3 ML NEB INHALATION SCH ×7 (00:14→23:24)
[2019-02-20] MEDS: NITROGLYCERIN OINT 1 INCH/GM PACKET TOPICAL SCH ×4 (00:57→16:52)
[2019-02-20] MEDS: AMPICILLIN 2,000 MG in SODIUM CHLORIDE 0.9% 100 ML IVPB SCH ×5 (04:54→20:24)
[2019-02-20 06:58] LABS: Basophils % (A) 0 %; Eosinophils # (A) 0.5 k/uL (0-0.7); Eosinophils % (A) 10 %; HCT 24.7 % (39.0-53.0); HGB 7.8 gm/dL (13.0-17.5); Hypochromasia Slight; Lymphocytes % (A) 21 %; MCH 28.6 pg (25.0-35.0); MCHC 31.8 g/dL (31.0-37.0); MCV 89.9 fL (80.0-100.0); Mean Platelet Volume 6.8; Monocytes # (A) 0.4 k/uL (0-1.0); Monocytes % (A) 8 %; Neutrophils # (A) 2.9 k/uL (1.3-7.7); Neutrophils % (A) 58 %; Platelet Count 178 k/uL (150-450); RBC 2.74 m/uL (4.30-5.90); RDW 15.5 % (11.5-15.5)
[2019-02-20] MEDS: SYMBICORT 160-4.5 MCG INHALER INHALATION SCH ×3 (08:20→20:33)
[2019-02-20] MEDS: SENNOSIDES-DOCUSATE SODIUM 1 EACH TAB PO SCH (08:38)
[2019-02-20] MEDS: SIMETHICONE 80 MG CHEWABLE PO SCH ×4 (08:38→20:27)
[2019-02-20] MEDS: CLOPIDOGREL 75 MG TAB PO SCH (08:38)
[2019-02-20] MEDS: ASPIRIN 81 MG PO SCH (08:38)
[2019-02-20] MEDS: GABAPENTIN 300 MG CAP PO SCH ×3 (08:38→20:29)
[2019-02-20] MEDS: HYDROcodone/APAP 5-325MG 1 EACH TAB PO PRN ×2 (08:39→20:29)
[2019-02-20] MEDS: TAMSULOSIN 0.4 MG CAP.ER.24H PO SCH ×2 (08:39→20:29)
[2019-02-20] MEDS ORDERED: FUROSEMIDE 10 MG/ML 4 ML VIAL IV STA (09:52)
--- NOTE | 2019-02-20 09:57 | P.GSCN ---
History of Present Illness Consult date: 02/20/19 Reason for Consult: Hematuria History of present illness: The patient is a 78-year-old male admitted through the emergency room on 02/16 for evaluation of chest pain and shortness of breath. He has a history of coronary artery disease and had undergone coronary stent placement in December of this year. There was initially some concern that he might have a pulmonary embolus but a CT arteriogram of the chest showed no abnormality. The patient's shortness of breath and chest pain have improved since admission. He was voiding at the time of admission but the following day was noted to have a postvoid residual of over 400 mL and a catheter was inserted. Patient was also noted to have a fever and a urine culture has grown Enterococcus faecalis. Patient is currently on IV amoxicillin and his fever had resolved. White blood count today was 2740. The patient has a long history of BPH and bladder calculi. He underwent cystoscopy lithotripsy at [facility] in 03/2018. He developed urinary retention in 08/2018 and was evaluated by at that time. His prostate was too large to perform TURP and he was referred to Dr. Perez who performed a green light laser TUR vaporization of the prostate in 10/2018. The patient was able to void following the procedure. He was last seen by Dr. Ryan on 02/03/2019. At that time he had an Enterococcus faecalis urinary tract infection and was started on Macrobid. Since then the patient said he has had intermittent gross hematuria which was worse since he was admitted. His cathete r was changed a few days ago as it had occluded by clots but since that time his urine has gradually cleared and at the present time he is only pink tinged. The patient has had several Enterococcus faecalis urinary tract infections over the last year according to our office records. Renal ultrasound on 10/16/2018 suggested a nonobstructive calculus in the lower pole left kidney. Review of Systems - Constitutional Reports as per HPI - Cardiovascular Reports shortness of breath, Denies chest pain - Respiratory Denies wheezing - Gastrointestinal Denies abdominal pain - Genitourinary Reports as per HPI Past Medical History Past Medical History: Coronary Artery Disease (CAD), Heart Failure, Deep Vein Thrombosis (DVT), Hyperlipidemia, Pneumonia, Prostate Disorder, Pulmonary Embolus (PE) Additional Past Medical History / Comment(s): R leg DVT, urinary retention, BPH with surgery, UTI with sepsis, bladder stones with surgery, chronic anemia, chronic low back pain, neuropathy R foot, recent sinus problems. History of Any Multi-Drug Resistant Organisms: None Reported Past Surgical History: Appendectomy, Heart Catheterization, Heart Catheterization With Stent, Prostate Surgery (Laser TUR vaporization of prortate 10/2018) Additional Past Surgical History / Comment(s): Bladder stone removal 03/2018, TURVP, colonoscopy, cardiac caths with last one done 01/25/19 treat medically. Past Anesthesia/Blood Transfusion Reactions: No Reported Reaction Date of Last Stent Placement:: February 23, 2018 Smoking Status: Never smoker - Past Family History Father Family Medical History: No Reported History Additional Family Medical History / Comment(s): Father was healthy and lived to be 95 yrs old. Mother Family Medical History: Hypertension Additional Family Medical History / Comment(s): Mother of a brain tumor at the age of 75yrs. Pt states they never found out if it was cancerous. Medications and Allergies Home Medications Medication Instructions Recorded Confirmed Type Aspirin 81 mg PO DAILY #30 chew 02/24/18 02/16/19 Rx Atorvastatin [Lipitor] 80 mg PO HS #30 tab 02/24/18 02/16/19 Rx Clopidogrel [Plavix] 75 mg PO DAILY #30 tab 02/24/18 02/16/19 Rx Nitroglycerin Sl Tabs [Nitrostat] 0.4 mg SUBLINGUAL Q5M PRN #30 tab 02/24/18 02/16/19 Rx Gabapentin [Neurontin] 300 mg PO TID 08/24/18 02/16/19 History Loratadine [Claritin] 10 mg PO DAILY PRN 08/24/18 02/16/19 History Tamsulosin [Flomax] 0.4 mg PO BID 09/09/18 02/16/19 History Nitrofurantoin Monohyd/M-Cryst 100 mg PO Q12HR 02/16/19 02/16/19 History [Macrobid] Allergies Allergy/AdvReac Type Severity Reaction Status Date / Time No Known Allergies Allergy Verified 02/16/19 08:18 Surgical - Exam Vital Signs Temp Pulse Resp BP Pulse Ox 98.5 F 91 22 167/77 91 L 02/16/19 06:53 02/16/19 06:53 02/16/19 06:53 02/16/19 06:53 02/16/19 06:53 - General well developed, well nourished, no distress - ENT no hearing loss - Neck no masses, no lymphadectomy - Abdomen Abdomen: soft, non tender Hernia: none - Genitourinary normal penis with no external lesions, testicles non-tender, other (Hair catheters in place and is draining slightly pink tinged urine) Results - Labs 02/20/19 05:43 02/19/19 06:22 Abnormal Lab Results - Last 24 Hours (Table) 02/20/19 Range/Units 05:43 RBC 2.74 L (4.30-5.90) m/uL Hgb 7.8 L (13.0-17.5) gm/dL Hct 24.7 L (39.0-53.0) % Microbiology - Last 24 Hours (Table) 02/16/19 17:28 Blood Culture - Preliminary Blood No Growth after 72 hours 02/16/19 07:35 Blood Culture - Preliminary Blood No Growth after 72 hours Assessment and Plan (1) Gross hematuria Narrative/Plan: The cause of this is most likely related to a combination of the patient's enterococcus urine or tract infection, underlying BPH and the use of aspirin and Plavix. It seems to be resolving and in view of this no specific treatment is necessary at this time. The patient had been taking finasteride prior to 2 weeks ago and I suggested that he restart this is theoretically this may help reduce the likelihood of future episodes of bleeding. Current Visit: Yes Status: Acute Code(s): R31.0 - GROSS HEMATURIA SNOMED Code(s): 808549838 (2) Urinary tract infection Narrative/Plan: The patient was noted to have an Enterococcus faecalis urinary tract infection at the time of admission. He had the same organism at least 2 times in 2018. He has had bladder calculi and it is possible that he has some residual calculus debris in his bladder as he said that some calculus was removed at the time of his TUR vaporization of the prostate in 10/2018. He also had a nonobstructive calculus in the lower pole of his left kidney on renal ultrasound in 10/2018. It is possible that the persistent infection could be related to an infected calculus. Current Visit: Yes Status: Acute Code(s): N39.0 - URINARY TRACT INFECTION, SITE NOT SPECIFIED SNOMED Code(s): 68978519 (3) Urine retention Narrative/Plan: The patient most likely has had some element of incomplete bladder emptying for years. His postvoid residual checked in our office on 02/03 was 206 mL but the patient was not symptomatic at that time. His Hair catheter should be left in place until early next week when he can have another voiding trial. Dr. Ryan will reevaluate him at that time. Current Visit: No Status: Acute Code(s): R33.9 - RETENTION OF URINE, UNSPECIFIED SNOMED Code(s): 869432378
[2019-02-20] MEDS: SODIUM CHLORIDE 0.9% 1,000 ML IV SCH (14:24)
--- NOTE | 2019-02-20 16:35 | P.PN ---
Subjective 70-year-old pleasant gentleman was admitted secondary to sepsis from possible discitis as well as urinary tract infection both of which probably from enterococcus. Patient started having hematuria again today IV heparin is being discontinued and patient will be switched 81 mg of aspirin and Plavix will be continued as well. Patient did have mildly elevated troponins, no further intervention from cardiology perspective is being planned and patient had MRI of the spine which did show significant discitis with T11-T12 endplate erosions mildly narrowed spinal canal, no epidural abscess was evident on MRI. He continues to have significant back pain 02/19/2019 Patient's pain is better family has a lot of concerns and questions regarding th e his clinical condition aspirin extensive length of time explaining them the plan patient can use to have which area patient's Plavix was held today patient received to his aspirin. Although we cannot hold Plavix too long I'll consult urology. If his hematuria improves patient need to be resumed on Plavix as soon as possible patient will be continued on aspirin patient had a recent stent 2 weeks ago. Patient is a high risk for in-stent stenosis. Ideally infectious disease wanted cultures from the thoracic intervertebral disc but since patient is in aspirin and Plavix, after obtaining cultures will lead to high risk for bleeding into the thoracic spine because of that reason the probable better idea is to continue antibiotics for discitis 8-12 weeks. Same thing was discussed with infectious disease and cardiology along with family. Once his hematuria improves patient need a PICC line need to be discharged to subacute rehabilitation most probably on Friday Subjective 02/20/2019, prostate taking care of the patient Patient presents with acute back pain, which is better controlled with pain medication. Patient denies weakness in his lower extremity and he told me he went for a walk today which was normal but slow. He denies chest pain currently and his pain is rated as 0/10. Adarsh has hematuria and his been evaluated by Dr. Dubon today, his hematuria most related to enterococcus UTI, BPH as well as aspirin and Plavix. Resolving now. Restart finasteride., He recommended also to keep the Hair catheter in and follow-up with his urologist Dr. Zuñiga as an outpatient. Infectious disease team also has been consulted for his discitis and UTI Objective - Vital Signs Vital signs: Vital Signs Temp 98.1 F 02/20/19 12:00 Pulse 68 02/20/19 12:41 Resp 20 02/20/19 12:00 BP 156/59 02/20/19 12:00 Pulse Ox 98 02/20/19 12:00 Intake & Output 02/19/19 02/20/19 02/20/19 18:59 06:59 18:59 Intake Total 940 320 80 Output Total 700 1300 Balance 240 320 -1220 Weight 99.9 kg Intake: IV 320 Sodium Chloride 0.9% 1, 320 000 ml @ 40 mls/hr IV . Q24H [facility] Rx#:[id number] Intake, IV Titration 100 Amount Ampicillin 2,000 mg In 100 Sodium Chloride 0.9% 100 ml @ 200 mls/hr IVPB Q4HR [facility] Rx#:[id number] Oral 840 80 Output: Urine 700 1300 Uretheral (Hair) 650 Other: Voiding Method Indwelling Catheter Indwelling Catheter Indwelling Catheter # Bowel Movements 1 - Exam GENERAL: The patient is alert and oriented x3, not in any acute distress. Well developed, well nourished. HEENT: Pupils are round and equally reacting to light. EOMI. No scleral icterus. No conjunctival pallor. Normocephalic, atraumatic. No pharyngeal erythema. No thyromegaly. CARDIOVASCULAR: S1 and S2 present. No murmurs, rubs, or gallops. PULMONARY: Chest is clear to auscultation, no wheezing or crackles. -ABDOMEN: Soft, nontender, nondistended, normoactive bowel sounds. No palpable organomegaly. Hair catheter in place, with little dark urine in the back MUSCULOSKELETAL: No joint swelling or deformity. EXTREMITIES: No cyanosis, clubbing, or pedal edema. NEUROLOGICAL: Gross neurological examination did not reveal any focal deficits. SKIN: No rashes. 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 Patient is presently on ampicillin -Hematuria because of which heparin was discontinued -Possibly infected renal calculus. Microorganism is enterococcus. Continue with antibiotic -Recent history of Possible non-ST elevation myocardial infarction: Patient had a recent stent because of which we cannot hold a dual antiplatelet therapy for to long -Chronic urinary retention: Patient will be resumed on Flomax, patient may need a Hair catheter. -History of Coronary Artery disease -History of DVT in the past presently not on any anticoagulation as an outpatient -Hyperlipidemia -Benign prostatic hypertrophy
[2019-02-20] MEDS: ATORVASTATIN 80 MG TAB PO SCH (20:29)
[2019-02-20] MEDS: GENTAMICIN 90 MG in SODIUM CHLORIDE 0.9% 100 ML IVPB SCH (22:33)
--- NOTE | 2019-02-20 22:50 | PN ---
PROGRESS NOTE DATE OF SERVICE: 02/20/2019. REASON FOR FOLLOWUP: 1. T11/12 diskitis. 2. Enterococcus urinary tract infection. INTERVAL HISTORY: The patient is currently afebrile, has been breathing comfortably. Denies having any chest pain or shortness of breath. No cough. The patient back pain has improved. No nausea, vomiting or diarrhea. The patient's Hair catheter has been replaced and his temperature seems to have resolved. PHYSICAL EXAMINATION: Blood pressure is 127/59 with a pulse of 53, temperature 98.1. He is 95% on 2 L nasal cannula. General description is an elderly male lying in bed in no distress. Respiratory system: Unlabored breathing. Clear to auscultation anteriorly. Heart S1, S2. Regular rate and rhythm. Abdomen soft, no tenderness. Extremities: No edema of the feet. LABS: Hemoglobin 7.5, white count 5.0 with a BUN of 19, creatinine 0.85. Blood culture has been negative. Urine with enterococcus faecalis. DIAGNOSTIC IMPRESSION AND PLAN: Patient admitted to the hospital with sepsis, likely multifactorial in this patient who did have a component of Enterococcus faecalis urinary tract infection. Evidence of T11/12 diskitis in this patient who has grown the same pathogen in the urine for a couple months now with presumptive pathogen responsible for diskitis. Unfortunately, the aspirate of the area could not be done for cultures as the patient has been on aspirin, Plavix with recent cardiac stent placement. The patient seemed to have responded to in view of improvement in his kidney function. We will add gentamicin for synergistic activity while in hospital as Levaquin and monitor closely. The patient will get a PICC line for outpatient antibiotic therapy on discharge. Continue supportive care. MMODL / IJN: [id number] /
[2019-02-21] MEDS: NITROGLYCERIN OINT 1 INCH/GM PACKET TOPICAL SCH ×5 (00:26→23:15)
[2019-02-21] MEDS: AMPICILLIN 2,000 MG in SODIUM CHLORIDE 0.9% 100 ML IVPB SCH ×6 (00:30→21:38)
[2019-02-21] MEDS: IPRATROPIUM-ALBUTEROL 3 ML NEB INHALATION SCH ×5 (03:25→19:51)
[2019-02-21] MEDS: GENTAMICIN 90 MG in SODIUM CHLORIDE 0.9% 100 ML IVPB SCH ×3 (06:07→23:15)
[2019-02-21 06:47] LABS: Basophils % (A) 0 %; Eosinophils # (A) 0.5 k/uL (0-0.7); Eosinophils % (A) 10 %; HCT 25.5 % (39.0-53.0); HGB 7.8 gm/dL (13.0-17.5); Hypochromasia Slight; Lymphocytes % (A) 18 %; MCH 27.2 pg (25.0-35.0); MCHC 30.5 g/dL (31.0-37.0); MCV 88.9 fL (80.0-100.0); Mean Platelet Volume 7.5; Monocytes # (A) 0.4 k/uL (0-1.0); Monocytes % (A) 8 %; Neutrophils # (A) 3.3 k/uL (1.3-7.7); Neutrophils % (A) 62 %; Platelet Count 178 k/uL (150-450); RBC 2.87 m/uL (4.30-5.90); RDW 15.6 % (11.5-15.5); WBC 5.3 k/uL (3.8-10.6)
[2019-02-21] MEDS: SYMBICORT 160-4.5 MCG INHALER INHALATION SCH ×2 (07:56→19:51)
[2019-02-21] MEDS: HYDROcodone/APAP 5-325MG 1 EACH TAB PO PRN ×2 (08:27→21:39)
[2019-02-21] MEDS: CLOPIDOGREL 75 MG TAB PO SCH (08:27)
[2019-02-21] MEDS: SIMETHICONE 80 MG CHEWABLE PO SCH ×4 (08:27→21:38)
[2019-02-21] MEDS: TAMSULOSIN 0.4 MG CAP.ER.24H PO SCH ×2 (08:27→21:38)
[2019-02-21] MEDS: ASPIRIN 81 MG PO SCH (08:27)
[2019-02-21] MEDS: GENTAMICIN PER PHARMACY MISCELLANE SCH ×2 (08:27→22:51)
[2019-02-21] MEDS: SENNOSIDES-DOCUSATE SODIUM 1 EACH TAB PO SCH (08:27)
[2019-02-21] MEDS: GABAPENTIN 300 MG CAP PO SCH ×3 (08:27→21:38)
[2019-02-21 09:54] LABS: ALT 80 U/L (21-72); AST 58 U/L (17-59); Albumin 2.5 g/dL (3.5-5.0); Alkaline Phosphatase 64 U/L (38-126); Anion Gap 4 mmol/L; Blood Urea Nitrogen 17 mg/dL (9-20); Calcium 8.3 mg/dL (8.4-10.2); Carbon Dioxide 31 mmol/L (22-30); Chloride 106 mmol/L (98-107); Glucose 105 mg/dL (74-99); Potassium 3.5 mmol/L (3.5-5.1); Sodium 141 mmol/L (137-145); Total Bilirubin 0.4 mg/dL (0.2-1.3)
--- NOTE | 2019-02-21 11:40 | XR ---
EXAMINATION TYPE: XR chest 1V DATE OF EXAM: 02/21/2019 COMPARISON: 02/16/2019 HISTORY: 78 year-old male shortness of breath TECHNIQUE: Single frontal view of the chest is obtained. FINDINGS: Low lung volumes and crowded vascular markings. Interstitial prominence is present. Heart borderline enlarged. Patchy left basilar opacity and blunted costophrenic angle. IMPRESSION: 1. Hypoventilatory changes, possible mild pulmonary vascular congestion. 2. Some patchy left basilar opacity could represent a trace effusion with adjacent atelectasis and/or consolidation.
[2019-02-21] MEDS: FUROSEMIDE 40 MG TAB PO SCH (12:20)
[2019-02-21] MEDS: SODIUM CHLORIDE 0.9% 1,000 ML IV SCH (12:20)
--- NOTE | 2019-02-21 20:47 | P.PN ---
Subjective 70-year-old pleasant gentleman was admitted secondary to sepsis from possible discitis as well as urinary tract infection both of which probably from enterococcus. Patient started having hematuria again today IV heparin is being discontinued and patient will be switched 81 mg of aspirin and Plavix will be continued as well. Patient did have mildly elevated troponins, no further intervention from cardiology perspective is being planned and patient had MRI of the spine which did show significant discitis with T11-T12 endplate erosions mildly narrowed spinal canal, no epidural abscess was evident on MRI. He continues to have significant back pain 02/19/2019 Patient's pain is better family has a lot of concerns and questions regarding th e his clinical condition aspirin extensive length of time explaining them the plan patient can use to have which area patient's Plavix was held today patient received to his aspirin. Although we cannot hold Plavix too long I'll consult urology. If his hematuria improves patient need to be resumed on Plavix as soon as possible patient will be continued on aspirin patient had a recent stent 2 weeks ago. Patient is a high risk for in-stent stenosis. Ideally infectious disease wanted cultures from the thoracic intervertebral disc but since patient is in aspirin and Plavix, after obtaining cultures will lead to high risk for bleeding into the thoracic spine because of that reason the probable better idea is to continue antibiotics for discitis 8-12 weeks. Same thing was discussed with infectious disease and cardiology along with family. Once his hematuria improves patient need a PICC line need to be discharged to subacute rehabilitation most probably on Friday Subjective 02/20/2019, today is first day I am taking care of the patient Patient presents with acute back pain, which is better controlled with pain medication. Patient denies weakness in his lower extremity and he told me he went for a walk today which was normal but slow. He denies chest pain currently and his pain is rated as 0/10. Adarsh has hematuria and his been evaluated by Dr. Dubon today, his hematuria most related to enterococcus UTI, BPH as well as aspirin and Plavix. Resolving now. Restart finasteride., He recommended also to keep the Hair catheter in and follow-up with his urologist Dr. Zuñiga as an outpatient. Infectious disease team also has been consulted for his discitis and UTI 02/21/2019 Patient still complaining of from back pain, he still have hematuria. But is improving slightly. Vitas is stable. Hemoglobin today is stable at 7.8. 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 Recheck chest x-ray shows mild pulmonary congestion and atelectasis, he has mild bilateral leg edema, patient was started on Lasix 40 mg daily. Creatinine 0.9 today. Patient on ampicillin and gentamicin was added by infectious disease team who following the case. Hair catheter is in place. Patient is on aspirin and Plavix. Patient will be discharged to [facility] when ready Objective - Vital Signs Vital signs: Vital Signs Temp 98.3 F 02/21/19 08:00 Pulse 76 02/21/19 11:44 Resp 20 02/21/19 08:00 BP 151/73 02/21/19 08:00 Pulse Ox 96 02/21/19 08:00 Intake & Output 02/20/19 02/21/19 02/21/19 18:59 06:59 18:59 Intake Total 180 820 584 Output Total 2700 900 600 Balance -2520 -80 -16 Weight 100.1 kg Intake: IV 720 0.9 @ 20 mL 320 Ampicillin 2,000 mg In 400 Sodium Chloride 0.9% 100 ml @ 200 mls/hr IVPB Q4HR [facility] Rx#:[id number] Intake, IV Titration 100 Amount Gentamicin 90 mg In 100 Sodium Chloride 0.9% 100 ml @ 102.25 mls/hr IVPB Q8H [facility] Rx#:[id number] Oral 180 584 Output: Urine 2700 900 600 Uretheral (Hair) 2050 375 Other: Voiding Method Indwelling Catheter Indwelling Catheter Indwelling Catheter - Exam GENERAL: The patient is alert and oriented x3, not in any acute distress. Well developed, well nourished. HEENT: Pupils are round and equally reacting to light. EOMI. No scleral icterus. No conjunctival pallor. Normocephalic, atraumatic. No pharyngeal erythema. No thyromegaly. CARDIOVASCULAR: S1 and S2 present. No murmurs, rubs, or gallops. PULMONARY: Chest is clear to auscultation, no wheezing or crackles. -ABDOMEN: Soft, nontender, nondistended, normoactive bowel sounds. No palpable organomegaly. Hair catheter in place, with little dark urine in the back MUSCULOSKELETAL: No joint swelling or deformity. EXTREMITIES: No cyanosis, clubbing, or pedal edema. NEUROLOGICAL: Gross neurological examination did not reveal any focal deficits. SKIN: No rashes. - Labs CBC & Chem 7: 02/21/19 05:56 02/21/19 05:56 Labs: Abnormal Lab Results - Last 24 Hours (Table) 02/21/19 02/21/19 Range/Units 05:56 05:56 RBC 2.87 L (4.30-5.90) m/uL Hgb 7.8 L (13.0-17.5) gm/dL Hct 25.5 L (39.0-53.0) % MCHC 30.5 L (31.0-37.0) g/dL RDW 15.6 H (11.5-15.5) % Carbon Dioxide 31 H (22-30) mmol/L Glucose 105 H (74-99) mg/dL Calcium 8.3 L (8.4-10.2) mg/dL ALT 80 H (21-72) U/L Total Protein 5.0 L (6.3-8.2) g/dL Albumin 2.5 L (3.5-5.0) g/dL Microbiology - Last 24 Hours (Table) 02/16/19 07:35 Blood Culture - Preliminary Blood No Growth after 120 hours 02/16/19 17:28 Blood Culture - Preliminary Blood No Growth after 96 hours Assessment and Plan Assessment: Assessment and plan -Sepsis: Secondary urinary tract infection and discitis of T11-T12 thoracic vertebrae, continue with ampicillin 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 Patient is presently on ampicillin -Hematuria because of which heparin was discontinued -Possibly infected renal calculus. Microorganism is enterococcus. Continue with antibiotic -Recent history of Possible non-ST elevation myocardial infarction: Patient had a recent stent because of which we cannot hold a dual antiplatelet therapy for to long -Chronic urinary retention: Patient will be resumed on Flomax, patient may need a Hair catheter. -History of Coronary Artery disease -History of DVT in the past presently not on any anticoagulation as an outpatient -Hyperlipidemia -Benign prostatic hypertrophy
[2019-02-21] MEDS: ATORVASTATIN 80 MG TAB PO SCH (21:38)
--- NOTE | 2019-02-21 22:28 | PN ---
PROGRESS NOTE DATE OF SERVICE: 02/21/2019 REASON FOR FOLLOWUP: 1. Thoracic spine diskitis. 2. Enterococcus urinary tract infection. INTERVAL HISTORY: The patient is currently afebrile. Patient has been breathing more comfortably. Denies having any chest pain or cough. No abdominal pain. Back pain is currently improved and no diarrhea. No further hematuria. PHYSICAL EXAMINATION: Blood pressure 143/73 with a pulse of 52, temperature 97.7 he is 99% on room air. General description is an elderly male lying in bed in no distress. Respiratory system: Unlabored breathing, clear to auscultation anteriorly. Heart S1, S2. Regular rate and rhythm. Abdomen soft. Extremities: No edema of the feet. LABS: Hemoglobin 7.8, white count 5.3 with a BUN of 17, creatinine 0.90. DIAGNOSTIC IMPRESSION AND PLAN: 1. Patient with Enterococcus faecalis urinary tract infection, currently covered with ampicillin. 2. The patient with T11-12 diskitis without evidence of any abscess. Patient currently covered with ampicillin and ( ) Enterococcus being the likely pathogen which has grown in his urine multiple times. We will get a PICC line tomorrow for outpatient IV antibiotic therapy with weekly CBC, BMP and sed rate. His questions were answered. MMODL / IJN: [id number] /
[2019-02-22] MEDS: IPRATROPIUM-ALBUTEROL 3 ML NEB INHALATION SCH ×6 (00:10→20:27)
[2019-02-22] MEDS: AMPICILLIN 2,000 MG in SODIUM CHLORIDE 0.9% 100 ML IVPB SCH ×7 (00:51→23:09)
[2019-02-22] MEDS ORDERED: GENTAMICIN TROUGH DUE 1 EACH MISC MISCELLANE ONE (06:00)
[2019-02-22] MEDS: GENTAMICIN 90 MG in SODIUM CHLORIDE 0.9% 100 ML IVPB SCH (06:37)
[2019-02-22] MEDS: NITROGLYCERIN OINT 1 INCH/GM PACKET TOPICAL SCH ×4 (06:37→23:10)
[2019-02-22 06:50] LABS: Basophils % (A) 0 %; Eosinophils # (A) 0.5 k/uL (0-0.7); Eosinophils % (A) 9 %; HCT 26.1 % (39.0-53.0); Hypochromasia Slight; Lymphocytes # (A) 1.3 k/uL (1.0-4.8); Lymphocytes % (A) 22 %; MCH 27.5 pg (25.0-35.0); MCHC 30.6 g/dL (31.0-37.0); MCV 89.8 fL (80.0-100.0); Mean Platelet Volume 7.3; Monocytes # (A) 0.4 k/uL (0-1.0); Monocytes % (A) 7 %; Neutrophils # (A) 3.5 k/uL (1.3-7.7); Neutrophils % (A) 61 %; Platelet Count 203 k/uL (150-450); RBC 2.91 m/uL (4.30-5.90); RDW 15.7 % (11.5-15.5); WBC 5.8 k/uL (3.8-10.6)
[2019-02-22 06:58] LABS: Anion Gap 4 mmol/L; Blood Urea Nitrogen 18 mg/dL (9-20); Calcium 8.5 mg/dL (8.4-10.2); Carbon Dioxide 32 mmol/L (22-30); Chloride 102 mmol/L (98-107); Glucose 98 mg/dL (74-99); Sodium 138 mmol/L (137-145)
[2019-02-22] MEDS: SYMBICORT 160-4.5 MCG INHALER INHALATION SCH ×2 (07:26→20:27)
[2019-02-22] MEDS ORDERED: GENTAMICIN PEAK DUE 1 EACH MISC MISCELLANE ONE (08:30)
[2019-02-22] MEDS: SIMETHICONE 80 MG CHEWABLE PO SCH ×4 (09:21→23:10)
[2019-02-22] MEDS: FUROSEMIDE 40 MG TAB PO SCH (09:21)
[2019-02-22] MEDS: TAMSULOSIN 0.4 MG CAP.ER.24H PO SCH ×2 (09:21→19:55)
[2019-02-22] MEDS: CLOPIDOGREL 75 MG TAB PO SCH (09:22)
[2019-02-22] MEDS: ASPIRIN 81 MG PO SCH (09:22)
[2019-02-22] MEDS: GABAPENTIN 300 MG CAP PO SCH ×3 (09:22→23:10)
[2019-02-22] MEDS: SENNOSIDES-DOCUSATE SODIUM 1 EACH TAB PO SCH (09:22)
[2019-02-22] MEDS: HYDROcodone/APAP 5-325MG 1 EACH TAB PO PRN ×2 (09:24→19:54)
[2019-02-22] MEDS ORDERED: LIDOCAINE 1% INJ 10MG/ML (20 ML MDV) SQ ONE (13:07)
[2019-02-22] MEDS: SODIUM CHLORIDE 0.9% 1,000 ML IV SCH (15:20)
--- NOTE | 2019-02-22 17:18 | P.PN ---
Subjective Progress Note Date: 02/22/19 Interval history:70-year-old pleasant gentleman was admitted secondary to sepsis from possible discitis as well as urinary tract infection both of which probably from enterococcus. Patient started having hematuria again today IV heparin is being discontinued and patient will be switched 81 mg of aspirin and Plavix will be continued as well. Patient did have mildly elevated troponins, no further intervention from cardiology perspective is being planned and patient had MRI of the spine which did show significant discitis with T11-T12 endplate erosions mildly narrowed spinal canal, no epidural abscess was evident on MRI. He continues to have significant back pain 02/19/2019 Patient's pain is better family has a lot of concerns and questions regarding the his clinical condition aspirin extensive length of time explaining them the plan patient can use to have which area patient's Plavix was held today patient received to his aspirin. Although we cannot hold Plavix too long I'll consult urology. If his hematuria improves patient need to be resumed on Plavix as soon as possible patient will be continued on aspirin patient had a recent stent 2 weeks ago. Patient is a high risk for in-stent stenosis. Ideally infectious disease wanted cultures from the thoracic intervertebral disc but since patient is in aspirin and Plavix, after obtaining cultures will lead to high risk for bleeding into the thoracic spine because of that reason the probable better idea is to continue antibiotics for discitis 8-12 weeks. Same thing was discussed with infectious disease and cardiology along with family. Once his hematuria improves patient need a PICC line need to be discharged to subacute rehab ilitation most probably on Friday Subjective 02/20/2019, today is first day I am taking care of the patient Patient presents with acute back pain, which is better controlled with pain medication. Patient denies weakness in his lower extremity and he told me he went for a walk today which was normal but slow. He denies chest pain currently and his pain is rated as 0/10. Adarsh has hematuria and his been evaluated by Dr. Dubon today, his hematuria most related to enterococcus UTI, BPH as well as aspirin and Plavix. Resolving now. Restart finasteride., He recommended also to keep the Hair catheter in and follow-up with his urologist Dr. Zuñiga as an outpatient. Infectious disease team also has been consulted for his discitis and UTI 02/21/2019 Patient still complaining of from back pain, he still have hematuria. But is improving slightly. Vitas is stable. Hemoglobin today is stable at 7.8. Patient states he was on Lasix by his early childhood director, family at bedside insisting on patient taken Lasix. Recheck chest x-ray shows mild pulmonary congestion and atelectasis, he has mild bilateral leg edema, patient was started on Lasix 40 mg daily. Creatinine 0.9 today. Patient on ampicillin and gentamicin was added by infectious disease team who following the case. Hair catheter is in place. Patient is on aspirin and Plavix. Patient will be discharged to [facility] when ready 02/22/2019 maintained on IV antibiotics as per infectious disease. PICC line pending. Complains of back pain, mildly improved. Afebrile, normal WBC. Hematuria improving ,hemoglobin 8. Discharge planning in progress for subacute rehab. Objective - Vital Signs Vital signs: Vital Signs Temp 97.7 F 02/22/19 15:15 Pulse 58 L 02/22/19 16:49 Resp 18 02/22/19 15:15 BP 111/57 02/22/19 15:15 Pulse Ox 92 L 02/22/19 15:15 Intake & Output 02/21/19 02/22/19 02/22/19 18:59 06:59 18:59 Intake Total 644 980 Output Total 800 2100 Balance -156 -2100 980 Weight 100.1 kg Intake: IV 260 0.9 @ 20 mL 160 Ampicillin 2,000 mg In 100 Sodium Chloride 0.9% 100 ml @ 200 mls/hr IVPB Q4HR [facility] Rx#:[id number] Oral 644 720 Output: Urine 800 2100 Uretheral (Hair) 575 850 Other: Voiding Method Indwelling Catheter Indwelling Catheter Indwelling Catheter - Exam GENERAL: Sitting up at side of bed, alert and oriented x3, no acute distress. HEENT: Pupils are round and equally reacting to light. EOMI. No scleral icterus. No conjunctival pallor. Normocephalic, atraumatic. CARDIOVASCULAR: S1 and S2 present. No murmurs, rubs, or gallops. PULMONARY: Chest is clear to auscultation, no wheezing or crackles. -ABDOMEN: Soft, nontender, nondistended, normoactive bowel sounds. No palpable organomegaly. MUSCULOSKELETAL: No joint swelling or deformity. EXTREMITIES: No cyanosis, clubbing, or pedal edema. NEUROLOGICAL: Gross neurological examination did not reveal any focal deficits. SKIN: No rashes. Microbiology 02/16/19 07:35 Blood Blood Culture - Final No Growth after 144 hours 02/16/19 17:28 Blood Blood Culture - Preliminary No Growth after 120 hours 02/16/19 09:32 Urine,Voided Urine Culture - Final Enterococcus faecalis - Labs CBC & Chem 7: 02/22/19 05:17 02/22/19 05:17 Labs: Abnormal Lab Results - Last 24 Hours (Table) 02/22/19 02/22/19 Range/Units 05:17 05:17 RBC 2.91 L (4.30-5.90) m/uL Hgb 8.0 L (13.0-17.5) gm/dL Hct 26.1 L (39.0-53.0) % MCHC 30.6 L (31.0-37.0) g/dL RDW 15.7 H (11.5-15.5) % Carbon Dioxide 32 H (22-30) mmol/L Microbiology - Last 24 Hours (Table) 02/16/19 07:35 Blood Culture - Final Blood No Growth after 144 hours 02/16/19 17:28 Blood Culture - Preliminary Blood No Growth after 120 hours Assessment and Plan Assessment: -Sepsis: Secondary to enterococcus urinary tract infection and discitis of T11- T12 thoracic vertebrae -Hematuria,heparin was discontinued -Possibly infected renal calculus. Microorganism is enterococcus. -Recent history of Possible non-ST elevation myocardial infarction: Patient had a recent stent because of which we cannot hold a dual antiplatelet therapy too long -Chronic urinary retention: Patient will be resumed on Flomax, Hair catheter placed as per urology recommendations. -Coronary Artery disease -History of DVT in the past presently not on any anticoagulation as an outpa tient -Hyperlipidemia -Benign prostatic hypertrophy Plan: Continue on current medication regime ,monitoring and symptomatic treatment. Hair catheter management as per urology. Resume anticoagulation as soon as possible related to recent stent-cardiology following prn.. Maintain IV antibiotics as per ID. PICC line placement pending-scheduled for today. Discharge planning in progress for subacute rehab today pending pre- authorization. The impression and plan of care has been dictated as directed. : I performed a history and examination of this patient, discussed the same with the dictator. I agree with the dictator's note ,documented as a scribe. Any additional findings or plans will be noted.
[2019-02-22] MEDS: GENTAMICIN 120 MG in SODIUM CHLORIDE 0.9% 100 ML IVPB SCH (18:32)
[2019-02-22] MEDS: ATORVASTATIN 80 MG TAB PO SCH (19:55)
[2019-02-23] MEDS: IPRATROPIUM-ALBUTEROL 3 ML NEB INHALATION SCH ×6 (00:21→19:29)
--- NOTE | 2019-02-23 00:28 | PN ---
PROGRESS NOTE DATE OF SERVICE: 02/22/2019. REASON FOR FOLLOWUP: Enterococcus urinary tract infection, T11-12 diskitis. INTERVAL HISTORY: The patient is currently afebrile, has been breathing comfortably. Denies having any chest pain. No cough. No abdominal pain. The patient's hematuria has resolved. The mid back pain is improved. PHYSICAL EXAMINATION: Blood pressure 124/65 with a pulse of 61, temperature 98.2, he is 95% on room air. GENERAL DESCRIPTION: An elderly male lying in bed in no distress. RESPIRATORY SYSTEM: Unlabored breathing. Clear to auscultation anteriorly. HEART: S1, S2. Regular rate and rhythm. ABDOMEN: Soft. EXTREMITIES: No edema of the feet. LABS: Hemoglobin , BUN of 18, creatinine 0.83. Blood culture has been negative. DIAGNOSTIC IMPRESSION AND PLAN: 1. Patient with Enterococcus drug infection, adequately treated. 2. The patient with T11-12 diskitis. The patient is a currently on ampicillin 2 g every 4 hours as well as gentamicin. We will be planning on getting PICC line and transition to ampicillin 2 g every 6 hours for 6 weeks with weekly monitoring of CBC and BMP and sed rate. present at bedside. Questions were answered. MMODL / IJN: [id number] /
[2019-02-23] MEDS: AMPICILLIN 2,000 MG in SODIUM CHLORIDE 0.9% 100 ML IVPB SCH ×6 (03:56→23:26)
[2019-02-23] MEDS: NITROGLYCERIN OINT 1 INCH/GM PACKET TOPICAL SCH ×2 (06:21→08:20)
[2019-02-23] MEDS: GENTAMICIN 120 MG in SODIUM CHLORIDE 0.9% 100 ML IVPB SCH ×2 (06:23→18:18)
[2019-02-23 07:04] LABS: Basophils % (A) 0 %; Eosinophils # (A) 0.7 k/uL (0-0.7); Eosinophils % (A) 10 %; HCT 25.9 % (39.0-53.0); HGB 8.3 gm/dL (13.0-17.5); Hypochromasia Slight; Lymphocytes # (A) 1.3 k/uL (1.0-4.8); Lymphocytes % (A) 18 %; MCH 28.3 pg (25.0-35.0); MCHC 31.9 g/dL (31.0-37.0); MCV 88.8 fL (80.0-100.0); Mean Platelet Volume 7.5; Monocytes # (A) 0.5 k/uL (0-1.0); Monocytes % (A) 7 %; Neutrophils # (A) 4.5 k/uL (1.3-7.7); Neutrophils % (A) 63 %; Platelet Count 240 k/uL (150-450); RBC 2.92 m/uL (4.30-5.90); RDW 15.3 % (11.5-15.5)
[2019-02-23 07:15] LABS: Anion Gap 4 mmol/L; Blood Urea Nitrogen 21 mg/dL (9-20); C Reactive Protein 51.9 mg/L (<10.0); Calcium 8.6 mg/dL (8.4-10.2); Carbon Dioxide 33 mmol/L (22-30); Chloride 102 mmol/L (98-107); Glucose 94 mg/dL (74-99); Potassium 4.2 mmol/L (3.5-5.1); Sodium 139 mmol/L (137-145)
[2019-02-23] MEDS: ASPIRIN 81 MG PO SCH (08:18)
[2019-02-23] MEDS: CLOPIDOGREL 75 MG TAB PO SCH (08:18)
[2019-02-23] MEDS: SENNOSIDES-DOCUSATE SODIUM 1 EACH TAB PO SCH (08:19)
[2019-02-23] MEDS: HYDROcodone/APAP 5-325MG 1 EACH TAB PO PRN ×2 (08:19→21:04)
[2019-02-23] MEDS: FUROSEMIDE 40 MG TAB PO SCH (08:19)
[2019-02-23] MEDS: TAMSULOSIN 0.4 MG CAP.ER.24H PO SCH ×2 (08:19→21:04)
[2019-02-23] MEDS: SIMETHICONE 80 MG CHEWABLE PO SCH ×4 (08:19→22:19)
[2019-02-23] MEDS: GABAPENTIN 300 MG CAP PO SCH ×3 (08:19→22:19)
[2019-02-23] MEDS: SYMBICORT 160-4.5 MCG INHALER INHALATION SCH ×2 (08:32→19:30)
[2019-02-23 11:42] LABS: Erythrocyte Sedimentation Rate 60 mm/hr (0-15)
--- NOTE | 2019-02-23 12:04 | P.DS ---
<Rain Babcock - Last Filed: 02/23/19 12:00> Providers Expected date of discharge: 02/23/19 Attending physician: Dr. Diane Hospital Course: Final DIagnoses: -Sepsis: Secondary to enterococcus urinary tract infection and discitis of T11- T12 thoracic vertebrae -Hematuria,heparin was discontinued -Possibly infected renal calculus. Microorganism is enterococcus. -Recent history of Possible non-ST elevation myocardial infarction, recent stents -Chronic urinary retention: Patient will be resumed on Flomax, Peralta catheter management as per urology recommendations, . -Coronary Artery disease -History of DVT in the past presently not on any anticoagulation as an o utpatient -Hyperlipidemia -Benign prostatic hypertrophy Interval history:70-year-old pleasant gentleman was admitted secondary to sepsis from possible discitis as well as urinary tract infection both of which probably from enterococcus. Patient started having hematuria again today IV heparin is being discontinued and patient will be switched 81 mg of aspirin and Plavix will be continued as well. Patient did have mildly elevated troponins, no further intervention from cardiology perspective is being planned and patient had MRI of the spine which did show significant discitis with T11-T12 endplate erosions mildly narrowed spinal canal, no epidural abscess was evident on MRI. He continues to have significant back pain 02/19/2019 Patient's pain is better family has a lot of concerns and questions regarding the his clinical condition aspirin extensive length of time explaining them the plan patient can use to have which area patient's Plavix was held today patient received to his aspirin. Although we cannot hold Plavix too long I'll consult urology. If his hematuria improves patient need to be resumed on Plavix as soon as possible patient will be continued on aspirin patient had a recent stent 2 weeks ago. Patient is a high risk for in-stent stenosis. Ideally infectious disease wanted cultures from the thoracic intervertebral disc but since patient is in aspirin and Plavix, after obtaining cultures will lead to high risk for bleeding into the thoracic spine because of that reason the probable better idea is to continue antibiotics for discitis 8-12 weeks. Same thing was discussed with infectious disease and cardiology along with family. Once his hematuria improves patient need a PICC line need to be discharged to subacute rehabilitation most probably on Friday Subjective 02/20/2019, today is first day I am taking care of the patient Patient presents with acute back pain, which is better controlled with pain medication. Patient denies weakness in his lower extremity and he told me he went for a walk today which was normal but slow. He denies chest pain currently and his pain is rated as 0/10. Adarsh has hematuria and his been evaluated by Dr. Dubon today, his hematuria most related to enterococcus UTI, BPH as well as aspirin and Plavix. Resolving now. Restart finasteride., He recommended also to keep the Peralta catheter in and follow-up with his urologist Dr. Zuñiga as an outpatient. Infectious disease team also has been consulted for his discitis and UTI 02/21/2019 Patient still complaining of from back pain, he still have hematuria. But is improving slightly. Vitas is stable. Hemoglobin today is stable at 7.8. 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 Recheck chest x-ray shows mild pulmonary congestion and atelectasis, he has mild bilateral leg edema, patient was started on Lasix 40 mg daily. Creatinine 0.9 today. Patient on ampicillin and gentamicin was added by infectious disease team who following the case. Peralta catheter is in place. Patient is on aspirin and Plavix. Patient will be discharged to [facility] when ready 02/22/2019 maintained on IV antibiotics as per infectious disease. PICC line pending. Complains of back pain, mildly improved. Afebrile, normal WBC. Hematuria improving ,hemoglobin 8. Discharge planning in progress for subacute rehab. 02/23/2019 VSS. No overnight events. Discharge planning in progress for subacute rehab today pending preauthorization. Patient has been cleared by all consults for discharge. Patient is being discharged to [facility] in a stable condition with guarded prognosis. - Exam GENERAL: alert and oriented x3, no acute distress. CARDIOVASCULAR: S1 and S2 present. No murmurs, rubs, or gallops. PULMONARY: Chest is clear to auscultation, no wheezing or crackles. -ABDOMEN: Soft, nontender, nondistended, normoactive bowel sounds. No palpable organomegaly. NEUROLOGICAL: Gross neurological examination did not reveal any focal deficits. Microbiology 02/16/19 07:35 Blood Blood Culture - Final No Growth after 144 hours 02/16/19 17:28 Blood Blood Culture - Preliminary No Growth after 120 hours 02/16/19 09:32 Urine,Voided Urine Culture - Final Enterococcus faecalis The impression and plan of care has been dictated as directed. : I performed a history and examination of this patient, discussed the same with the dictator. I agree with the dictator's note ,documented as a scribe. Any additional findings or plans will be noted. Time taken: 35 minutes Patient Condition at Discharge: Stable Plan - Discharge Summary Discharge Rx Participant: No New Discharge Prescriptions: New Ipratropium-Albuterol Nebulize [Duoneb 0.5 mg-3 mg/3 ml Soln] 3 ml INHALATION RT-Q4H ampul.neb Furosemide [Lasix] 40 mg PO DAILY tab Simethicone Chew [Mylicon Chew] 80 mg PO QID chew Sennosides-Docusate Sodium [Senokot-S] 1 each PO DAILY tab Budesonide-Formot 160-4.5 Mcg [Symbicort 160-4.5 Mcg Inhaler] 2 puff INHALATION RT-BID puff HYDROcodone/APAP 5-325MG [Calion 5-325] 2 each PO Q4HR PRN #20 tab PRN Reason: Severe Pain Continue Aspirin 81 mg PO DAILY #30 chew Atorvastatin [Lipitor] 80 mg PO HS #30 tab Clopidogrel [Plavix] 75 mg PO DAILY #30 tab Nitroglycerin Sl Tabs [Nitrostat] 0.4 mg SUBLINGUAL Q5M PRN #30 tab PRN Reason: Chest Pain Loratadine [Claritin] 10 mg PO DAILY PRN PRN Reason: Allergy Symptoms Gabapentin [Neurontin] 300 mg PO TID Tamsulosin [Flomax] 0.4 mg PO BID Discharge Medication List Aspirin 81 mg PO DAILY #30 chew 02/24/18 [Rx] Atorvastatin [Lipitor] 80 mg PO HS #30 tab 02/24/18 [Rx] Clopidogrel [Plavix] 75 mg PO DAILY #30 tab 02/24/18 [Rx] Nitroglycerin Sl Tabs [Nitrostat] 0.4 mg SUBLINGUAL Q5M PRN #30 tab 02/24/18 [Rx] Gabapentin [Neurontin] 300 mg PO TID 08/24/18 [History] Loratadine [Claritin] 10 mg PO DAILY PRN 08/24/18 [History] Tamsulosin [Flomax] 0.4 mg PO BID 09/09/18 [History] Budesonide-Formot 160-4.5 Mcg [Symbicort 160-4.5 Mcg Inhaler] 2 puff INHALATION RT-BID puff 02/23/19 [Rx] Furosemide [Lasix] 40 mg PO DAILY tab 02/23/19 [Rx] HYDROcodone/APAP 5-325MG [Calion 5-325] 2 each PO Q4HR PRN #20 tab 02/23/19 [Rx] Ipratropium-Albuterol Nebulize [Duoneb 0.5 mg-3 mg/3 ml Soln] 3 ml INHALATION RT-Q4H ampul.neb 02/23/19 [Rx] Sennosides-Docusate Sodium [Senokot-S] 1 each PO DAILY tab 02/23/19 [Rx] Simethicone Chew [Mylicon Chew] 80 mg PO QID chew 02/23/19 [Rx] Follow up Appointment(s)/Referral(s): Trino Muñoz MD [Primary Care Provider] - 02/26/19 1:30 pm (Friday) Devante Buckner DO [Doctor of Osteopathic Medicine] - 03/19/19 9:00 am (Friday) Kuldeep Cooper MD [STAFF PHYSICIAN] - 03/02/19 2:45 pm (Friday) Cam Ryan MD [STAFF PHYSICIAN] - 03/08/19 8:20 am (Friday) Ambulatory/Diagnostic Orders: Basic Metabolic Panel [LAB.AMB] Location: None Selected C Reactive Protein [LAB.AMB] Location: None Selected Complete Blood Count w/diff [LAB.AMB] Location: None Selected Erythrocyte Sedimentation Rate [LAB.AMB] Location: None Selected Patient Instructions/Handouts: Peralta Catheter Placement and Care (DC) Activity/Diet/Wound Care/Special Instructions: D/C antibiotics per Dr. Cooper - Ampicillin 2grams IVPB q6hrs x 6 weeks; Weekly CMB/BMP/ESR confirm cardiology follow-up appointment prior to discharge <Benedicto,Edison E - Last Filed: 02/24/19 21:08> Providers Date of admission: 02/16/19 10:55 Attending physician: Melissa Dubon Consults: 02/16/19 10:55 Consult Physician Urgent Consulting Provider: Aldo Beckman Consult Reason/Comments: cp Do you want consulting provider notified?: Yes 02/16/19 11:46 Consult Physician Urgent Consulting Provider: Devante Buckner Consult Reason/Comments: Evaluate for discitis Do you want consulting provider notified?: Yes 02/16/19 15:57 Consult Physician Routine Consulting Provider: Kuldeep Cooper Consult Reason/Comments: diskitis Do you want consulting provider notified?: Yes 02/16/19 16:54 Consult Physician Urgent Consulting Provider: Garcia Conde Consult Reason/Comments: copd exacerbation Do you want consulting provider notified?: Yes 02/19/19 14:30 Consult Physician Routine Consulting Provider: Cam Ryan Consult Reason/Comments: Hematuria Do you want consulting provider notified?: Yes Primary care physician: Wanda Jameson [facility] Course: please consider this as progress note rather than discharge summary pt was going to be discharge. however he could not pee after his peralta catheter was removed under the recommendation of urology team . it has to be replaced back under urology supervision later on . still has hematuria
--- NOTE | 2019-02-23 15:56 | PN ---
PROGRESS NOTE DATE OF SERVICE: 02/23/2019 REASON FOR FOLLOWUP: 1. Enterococcus UTI. 2. T11-12 diskitis. INTERVAL HISTORY: The patient is currently afebrile. He is feeling better, breathing comfortably. Slightly upset, as the patient was unable to urinate after his Hair catheter was discontinued. Denies having any chest pain, shortness of breath or cough and no worsening pain in the mid back area. PHYSICAL EXAMINATION: Blood pressure 133/91 with a pulse of 64. Temperature 97.8. He is 99% on room air. General description is an elderly male lying in bed in no distress. RESPIRATORY SYSTEM: Unlabored breathing. Clear to auscultation anteriorly. HEART: S1, S2. Regular rate and rhythm. ABDOMEN: Soft. No tenderness. EXTREMITIES: No edema of the feet. LABS: Hemoglobin 8.3, white count 7.0 with a BUN of 21, creatinine 0.89. Sedimentation rate is 60. The CRP is down to 51.9 from admission high of 148. DIAGNOSTIC IMPRESSION AND PLAN: 1. Patient with Enterococcus faecalis urinary tract infection, adequately treated. 2. Patient with T11-12 diskitis, concern for possibly same pathogen that patient grew for a couple of months in his urine. Blood culture has been negative. The patient is currently on That will be transitioned to ampicillin 2 grams q.6 for 6 weeks with weekly monitoring of CBC, BMP and sed rate and close outpatient followup. Family present at the bedside. Their questions were answered. MMODL / IJN: [id number] /
[2019-02-23] MEDS: SODIUM CHLORIDE 0.9% 1,000 ML IV SCH (16:15)
[2019-02-23 20:23] LABS: HCT 26.2 % (39.0-53.0); HGB 8.4 gm/dL (13.0-17.5); Hypochromasia Moderate; MCH 28.7 pg (25.0-35.0); MCV 89.6 fL (80.0-100.0); Mean Platelet Volume 7.4; Platelet Count 253 k/uL (150-450); RBC 2.92 m/uL (4.30-5.90); RDW 15.4 % (11.5-15.5); WBC 8.7 k/uL (3.8-10.6)
[2019-02-23] MEDS: ATORVASTATIN 80 MG TAB PO SCH (22:18)
[2019-02-24 00:51] LABS: HCT 22.5 % (39.0-53.0); Hypochromasia Marked; MCHC 30.6 g/dL (31.0-37.0); MCV 91.6 fL (80.0-100.0); Mean Platelet Volume 7.4; Platelet Count 245 k/uL (150-450); RBC 2.45 m/uL (4.30-5.90); RDW 15.4 % (11.5-15.5)
[2019-02-24 01:07] LABS: HGB 6.9 gm/dL (13.0-17.5)
[2019-02-24] MEDS: IPRATROPIUM-ALBUTEROL 3 ML NEB INHALATION SCH ×6 (02:20→19:52)
[2019-02-24] MEDS: HYDROcodone/APAP 5-325MG 1 EACH TAB PO PRN ×3 (03:46→15:31)
[2019-02-24] MEDS: AMPICILLIN 2,000 MG in SODIUM CHLORIDE 0.9% 100 ML IVPB SCH ×6 (03:51→23:55)
[2019-02-24] MEDS ORDERED: GENTAMICIN TROUGH DUE 1 EACH MISC MISCELLANE ONE (05:30)
[2019-02-24] MEDS: SYMBICORT 160-4.5 MCG INHALER INHALATION SCH ×3 (05:36→19:52)
[2019-02-24] MEDS: GENTAMICIN 120 MG in SODIUM CHLORIDE 0.9% 100 ML IVPB SCH ×2 (06:52→18:06)
--- NOTE | 2019-02-24 07:01 | P.PN ---
Subjective Progress Note Date: 02/24/19 The patient has been in the hospital with an enterococcus urinary tract infection. He has a known history of urinary retention with a very large prostate. He had a green light laser prostate surgery by in [place] several weeks ago. He has remained in retention unfortunately. His catheter is removed yesterday for a voiding trial but he was unable to go and has had problems with bleeding and clot retention ever since. The nursing staff is worked aggressively trying to get him out of clot retention and this has failed. He is dropped his hemoglobin over a gram. This reason he'll be set up for cystoscopy evacuation of clot and fulguration of bleeding as well as reassessment of the prostate to determine the next step to see if we can help him with spontaneous voiding. This has been discussed with the patient and his family. Objective - Vital Signs Vital signs: Vital Signs Temp 98.1 F 02/24/19 04:40 Pulse 62 02/24/19 05:48 Resp 18 02/24/19 04:11 BP 101/57 02/24/19 04:40 Pulse Ox 94 L 02/24/19 05:38 Intake & Output 02/23/19 02/23/19 02/24/19 06:59 18:59 06:59 Intake Total 100 480 590 Output Total 7127 374 8935 Balance -8946 -420 -2081 Weight 100.1 kg Intake: IV 100 280 0.9 @ 20 mL 160 Ampicillin 2,000 mg In 100 100 Sodium Chloride 0.9% 100 ml @ 200 mls/hr IVPB Q4HR [facility] Rx#:[id number] Invasive Line 4 10 Invasive Line 5 10 Oral 480 Blood Product 310 Rc Pheresis 2 As3 Unit 310 [id number] Output: Urine 6298 718 2631 Uretheral (Hair) 425 Post Void Residual 1350 Other: Voiding Method Indwelling Catheter Urinal Indwelling Catheter # Voids 0 # Bowel Movements 1 - Labs CBC & Chem 7: 02/24/19 00:25 02/23/19 05:53 Labs: Abnormal Lab Results - Last 24 Hours (Table) 02/23/19 02/23/19 02/23/19 Range/Units 05:53 05:53 20:03 RBC 2.92 L 2.92 L (4.30-5.90) m/uL Hgb 8.3 L 8.4 L (13.0-17.5) gm/dL Hct 25.9 L 26.2 L (39.0-53.0) % MCHC (31.0-37.0) g/dL ESR 60 H (0-15) mm/hr Carbon Dioxide 33 H (22-30) mmol/L BUN 21 H (9-20) mg/dL C-Reactive Protein 51.9 H (<10.0) mg/L Crossmatch 02/24/19 02/24/19 Range/Units 00:25 01:44 RBC 2.45 L (4.30-5.90) m/uL Hgb 6.9 L* D (13.0-17.5) gm/dL Hct 22.5 L (39.0-53.0) % MCHC 30.6 L (31.0-37.0) g/dL ESR (0-15) mm/hr Carbon Dioxide (22-30) mmol/L BUN (9-20) mg/dL C-Reactive Protein (<10.0) mg/L Crossmatch See Detail
[2019-02-24] MEDS: SIMETHICONE 80 MG CHEWABLE PO SCH ×4 (07:52→23:56)
[2019-02-24] MEDS: GABAPENTIN 300 MG CAP PO SCH ×3 (07:53→20:32)
[2019-02-24] MEDS ORDERED: ISOSORBIDE MONONITRATE ER 30 MG TAB.ER.24H PO SCH (09:00)
[2019-02-24 09:51] LABS: Basophils % (A) 0 %; Eosinophils # (A) 0.6 k/uL (0-0.7); Eosinophils % (A) 9 %; HCT 22.5 % (39.0-53.0); HGB 7.2 gm/dL (13.0-17.5); Hypochromasia Slight; Lymphocytes # (A) 1.2 k/uL (1.0-4.8); Lymphocytes % (A) 19 %; MCH 28.1 pg (25.0-35.0); MCHC 31.9 g/dL (31.0-37.0); MCV 88.2 fL (80.0-100.0); Mean Platelet Volume 7.5; Monocytes # (A) 0.4 k/uL (0-1.0); Monocytes % (A) 7 %; Neutrophils # (A) 4.3 k/uL (1.3-7.7); Neutrophils % (A) 64 %; Platelet Count 247 k/uL (150-450); RBC 2.55 m/uL (4.30-5.90); RDW 15.6 % (11.5-15.5); WBC 6.7 k/uL (3.8-10.6)
[2019-02-24 10:04] LABS: Calcium 8.2 mg/dL (8.4-10.2)
[2019-02-24] MEDS ORDERED: IV FLUID CONTINUATION 1,000 ML IV ONE (11:05)
[2019-02-24] MEDS: ONDANSETRON 4 MG/2 ML VIAL IVP PRN (11:14)
[2019-02-24] MEDS ORDERED: PHENYLEPHRINE-0.9% NACL SYG 1 MG/10 ML SYRINGE ONE (11:36)
[2019-02-24] MEDS ORDERED: LIDOCAINE 1% INJ 10MG/ML (20 ML MDV) ONE (11:36)
[2019-02-24] MEDS ORDERED: PROPOFOL 10 MG/ML 20 ML VIAL IV ONE (11:36)
--- NOTE | 2019-02-24 12:54 | P.OP ---
Date of Procedure: 02/24/19 Preoperative Diagnosis: Gross hematuria with clot urinary retention, history of BPH and TURP. History of persistent urinary retention. History of urinary tract infection. History of anticoagulation Postoperative Diagnosis: Same, prostate bleeding, bladder stone Procedure(s) Performed: Cystoscopy, evacuation of large volume of clot, fulguration of prostatic bleeding, cystoscopy lithotripsy to bladder stone Anesthesia: ALTA Surgeon: Cam Ryan Estimated Blood Loss (ml): 50 Pathology: other (Stone) Condition: stable Disposition: PACU Indications for Procedure: The patient is 78. He is on anticoagulation for her stents placed a month ago. He has a history of very large prostate and underwent greenlight prostatectomy in [place] several months ago. He remains in persistent urine retention. He is on anticoagulation. He came in the hospital with a urine infection. He had his catheter removed for a voiding trial and he failed this. He then developed gross hematuria that developed into a large volume of clot urine retention. He comes for cystoscopy evacuation of clot and cauterization of bleeding. Description of Procedure: The patient is brought to the operating suite he is given a successful general endotracheal anesthesia. The catheters removed. It has not been draining. The bladder is palpably full. Cystoscopy Foroblique lens and 25 inch sheath identifies obstructing prostate apically but an open prostate proximally. There is some bleeding on the edges of the prostate as I entered the bladder. The bladder is severely trabeculated. There is a large volume of clot that has to be evacuated with the Ellik evacuator. Approximately 2 units of old blood was evacuated. At this point time the urine is relatively clear. I inspect the bladder neck in its entirety. There are multiple cellules. In one of the cellule there is a 2-1/2 cm bladder stone. There is bleeding on the edges of the prostate. I Evacuated all the clot out of the bladder. I then introduced the 500 and laser probe to break the stone into tiny pieces and flushed it out of the bladder. I then take the 8-Somali Bugbee and cauterize the prostate that is bleeding. At the end of the procedure and 18-Somali Hair catheters introduced with clear to very light pink urine return. The patient is awakened and returned recovery room good condition. He tolerated procedure well be kept in the hospital overnight.
[2019-02-24] MEDS: FUROSEMIDE 40 MG TAB PO SCH (14:25)
[2019-02-24] MEDS: SENNOSIDES-DOCUSATE SODIUM 1 EACH TAB PO SCH (14:25)
[2019-02-24] MEDS: TAMSULOSIN 0.4 MG CAP.ER.24H PO SCH ×2 (14:25→20:32)
[2019-02-24] MEDS: SODIUM CHLORIDE 0.9% 1,000 ML IV SCH (14:27)
--- NOTE | 2019-02-24 16:10 | P.PN ---
<Rain Babcock - Last Filed: 02/24/19 16:04> Subjective Progress Note Date: 02/24/19 Interval history:70-year-old pleasant gentleman was admitted secondary to sepsis from possible discitis as well as urinary tract infection both of which probably from enterococcus. Patient started having hematuria again today IV heparin is being discontinued and patient will be switched 81 mg of aspirin and Plavix will be continued as well. Patient did have mildly elevated troponins, no further intervention from cardiology perspective is being planned and patient had MRI of the spine which did show significant discitis with T11-T12 endplate erosions mildly narrowed spinal canal, no epidural abscess was evident on MRI. He con tinues to have significant back pain 02/19/2019 Patient's pain is better family has a lot of concerns and questions regarding the his clinical condition aspirin extensive length of time explaining them the plan patient can use to have which area patient's Plavix was held today patient received to his aspirin. Although we cannot hold Plavix too long I'll consult urology. If his hematuria improves patient need to be resumed on Plavix as soon as possible patient will be continued on aspirin patient had a recent stent 2 weeks ago. Patient is a high risk for in-stent stenosis. Ideally infectious disease wanted cultures from the thoracic intervertebral disc but since patient is in aspirin and Plavix, after obtaining cultures will lead to high risk for bleeding into the thoracic spine because of that reason the probable better idea is to continue antibiotics for discitis 8-12 weeks. Same thing was discussed with infectious disease and cardiology along with family. Once his hematuria i mproves patient need a PICC line need to be discharged to subacute rehabilitation most probably on Friday Subjective 02/20/2019, today is first day I am taking care of the patient Patient presents with acute back pain, which is better controlled with pain medication. Patient denies weakness in his lower extremity and he told me he went for a walk today which was normal but slow. He denies chest pain currently and his pain is rated as 0/10. Adarsh has hematuria and his been evaluated by Dr. Dubon today, his hematuria most related to enterococcus UTI, BPH as well as aspirin and Plavix. Resolving now. Restart finasteride., He recommended also to keep the Peralta catheter in and follow-up with his urologist Dr. Zuñiga as an outpatient. Infectious disease team also has been consulted for his discitis and UTI 02/21/2019 Patient still complaining of from back pain, he still have hematuria. But is improving slightly. Vitas is stable. Hemoglobin today is stable at 7.8. Patient states he was on Lasix by his manager risk, family at bedside insisting on patient taken Lasix. Recheck chest x-ray shows mild pulmonary congestion and atelectasis, he has mild bilateral leg edema, patient was started on Lasix 40 mg daily. Creatinine 0.9 today. Patient on ampicillin and gentamicin was added by infectious disease team who following the case. Peralta catheter is in place. Patient is on aspirin and Plavix. Patient will be discharged to [facility]CF when ready 02/22/2019 maintained on IV antibiotics as per infectious disease. PICC line pending. Complains of back pain, mildly improved. Afebrile, normal WBC. Hematuria improving ,hemoglobin 8. Discharge planning in progress for subacute rehab. 02/24/2019 yesterday patient failed voiding trial, peralta reinserted, developed hematuria with clots. Irrigated as recommended per urology. Gross Hematuria persists,scheduled for cystoscopy, evacuation of clots, lithotripsy of bladder stone today. Received 1 unit of packed RBCs earlier this morning for hemoglobin 6.7 ,Hemoglobin 7.4. Anticoagulation remains on hold. Continues on IV antibiotics of gentamicin. Afebrile. Objective - Vital Signs Vital signs: Vital Signs Temp 97.6 F 02/24/19 08:00 Pulse 66 02/24/19 08:00 Resp 18 02/24/19 08:00 BP 105/50 02/24/19 08:00 Pulse Ox 99 02/24/19 08:00 Intake & Output 02/23/19 02/24/19 02/24/19 18:59 06:59 18:59 Intake Total 480 590 20 Output Total 900 2675 Balance -420 -2089 20 Intake: IV 280 20 0.9 @ 20 mL 160 Ampicillin 2,000 mg In 100 Sodium Chloride 0.9% 100 ml @ 200 mls/hr IVPB Q4HR [facility] Rx#:[id number] Invasive Line 4 10 10 Invasive Line 5 10 10 Oral 480 Blood Product 310 Rc Pheresis 2 As3 Unit 310 [id number] Output: Urine 900 1325 Uretheral (Peralta) 425 Post Void Residual 1350 Other: Voiding Method Urinal Indwelling Catheter Indwelling Catheter # Voids 0 # Bowel Movements 1 - Exam GENERAL: Sitting up at in bed, alert and oriented x3, no acute distress. HEENT: Pupils are round and equally reacting to light. EOMI. No scleral icterus. No conjunctival pallor. Normocephalic, atraumatic. CARDIOVASCULAR: S1 and S2 present. No murmurs, rubs, or gallops. PULMONARY: Chest is clear to auscultation, no wheezing or crackles. -ABDOMEN: Soft, nontender, nondistended, normoactive bowel sounds. No palpable organomegaly. MUSCULOSKELETAL: No joint swelling or deformity. EXTREMITIES: No cyanosis, clubbing, or pedal edema. NEUROLOGICAL: Gross neurological examination did not reveal any focal deficits. SKIN: No rashes. Microbiology 02/16/19 07:35 Blood Blood Culture - Final No Growth after 144 hours 02/16/19 17:28 Blood Blood Culture - Preliminary No Growth after 120 hours 02/16/19 09:32 Urine,Voided Urine Culture - Final Enterococcus faecalis - Labs CBC & Chem 7: 02/24/19 09:06 02/24/19 09:06 Labs: Abnormal Lab Results - Last 24 Hours (Table) 02/23/19 02/23/19 02/24/19 Range/Units 05:53 20:03 00:25 RBC 2.92 L 2.45 L (4.30-5.90) m/uL Hgb 8.4 L 6.9 L* D (13.0-17.5) gm/dL Hct 26.2 L 22.5 L (39.0-53.0) % MCHC 30.6 L (31.0-37.0) g/dL ESR 60 H (0-15) mm/hr Crossmatch 02/24/19 Range/Units 01:44 RBC (4.30-5.90) m/uL Hgb (13.0-17.5) gm/dL Hct (39.0-53.0) % MCHC (31.0-37.0) g/dL ESR (0-15) mm/hr Crossmatch See Detail Assessment and Plan Assessment: -Sepsis: Secondary to enterococcus urinary tract infection and discitis of T11- T12 thoracic vertebrae -Hematuria,heparin was discontinued -Possibly infected renal calculus. Microorganism is enterococcus. -Recent history of Possible non-ST elevation myocardial infarction: Patient had a recent stent because of which we cannot hold a dual antiplatelet therapy too long -Chronic urinary retention: Patient will be resumed on Flomax, Peralta catheter placed as per urology recommendations. -Coronary Artery disease -History of DVT in the past presently not on any anticoagulation as an outpatient -Hyperlipidemia -Benign prostatic hypertrophy Plan: Continue on current medication regime ,monitoring and symptomatic treatment. Anticoagulation remains on hold. Scheduled for cystoscopy, evacuation of clots, lithotripsy of bladder stone. Continues on IV antibiotics as per ID. prognosis guarded given multiple complex medical issues. PT/OT. The impression and plan of care has been dictated as directed. : I performed a history and examination of this patient, discussed the same with the dictator. I agree with the dictator's note ,documented as a scribe. Any additional findings or plans will be noted. <Sheet,Edison E - Last Filed: 02/24/19 21:12> Subjective I have discussed the plan and I have reviewed the note with Reji Luevano and I agree with it except what is mentioned below Pt is seen and examined by me at bed side pt peralta was successfully reinserted ,, urology team are following the pt closely , he is resting comfortably , his residual is checked and it was 218 ml today , is aware pt needed one uint of blood transfusion for dropping hemoglobin Objective - Vital Signs Vital signs: Vital Signs Temp 97.8 F 02/24/19 12:56 Pulse 64 02/24/19 20:06 Resp 18 02/24/19 15:20 BP 108/63 02/24/19 15:20 Pulse Ox 100 02/24/19 15:20 Intake & Output 02/24/19 02/24/19 02/25/19 06:59 18:59 06:59 Intake Total 590 1060 Output Total 2675 1520 Balance -2085 -460 Weight 96.8 kg Intake: IV 280 820 0.9 @ 20 mL 160 Ampicillin 2,000 mg In 100 Sodium Chloride 0.9% 100 ml @ 200 mls/hr IVPB Q4HR [facility] Rx#:[id number] Invasive Line 4 10 10 Invasive Line 5 10 10 Oral 240 Blood Product 310 Rc Pheresis 2 As3 Unit 310 [id number] Output: Urine 1325 1500 Uretheral (Peralta) 425 50 Post Void Residual 1350 Estimated Blood Loss 20 Other: Voiding Method Indwelling Catheter Indwelling Catheter - Labs CBC & Chem 7: 02/24/19 16:35 02/24/19 09:06 Labs: Abnormal Lab Results - Last 24 Hours (Table) 02/24/19 02/24/19 02/24/19 Range/Units 00:25 01:44 09:06 RBC 2.45 L (4.30-5.90) m/uL Hgb 6.9 L* D (13.0-17.5) gm/dL Hct 22.5 L (39.0-53.0) % MCHC 30.6 L (31.0-37.0) g/dL RDW (11.5-15.5) % Carbon Dioxide 31 H (22-30) mmol/L BUN 25 H (9-20) mg/dL Calcium 8.2 L (8.4-10.2) mg/dL Crossmatch See Detail 02/24/19 02/24/19 Range/Units 09:06 16:35 RBC 2.55 L 2.58 L (4.30-5.90) m/uL Hgb 7.2 L 7.2 L (13.0-17.5) gm/dL Hct 22.5 L 23.1 L (39.0-53.0) % MCHC (31.0-37.0) g/dL RDW 15.6 H 15.9 H (11.5-15.5) % Carbon Dioxide (22-30) mmol/L BUN (9-20) mg/dL Calcium (8.4-10.2) mg/dL Crossmatch
[2019-02-24 16:52] LABS: Basophils % (A) 0 %; Eosinophils # (A) 0.5 k/uL (0-0.7); Eosinophils % (A) 6 %; HCT 23.1 % (39.0-53.0); HGB 7.2 gm/dL (13.0-17.5); Hypochromasia Moderate; Lymphocytes # (A) 1.5 k/uL (1.0-4.8); Lymphocytes % (A) 16 %; MCH 27.7 pg (25.0-35.0); MCV 89.4 fL (80.0-100.0); Mean Platelet Volume 7.7; Monocytes # (A) 0.6 k/uL (0-1.0); Monocytes % (A) 7 %; Neutrophils # (A) 6.5 k/uL (1.3-7.7); Neutrophils % (A) 70 %; Platelet Count 238 k/uL (150-450); RBC 2.58 m/uL (4.30-5.90); RDW 15.9 % (11.5-15.5); WBC 9.3 k/uL (3.8-10.6)
[2019-02-24] MEDS: ATORVASTATIN 80 MG TAB PO SCH (20:32)
--- NOTE | 2019-02-24 23:27 | PN ---
PROGRESS NOTE DATE OF SERVICE: 02/24/2019 REASON FOR FOLLOWUP: 1. Enterococcus urinary tract infection. 2. T11-12 diskitis. INTERVAL HISTORY: The patient's discharge has been put on hold; the patient has developed significant hematuria. The patient is status post cystoscopy. Patient did have evidence of large clots, status post evacuation of the bladder clots, fulguration of the prostatic bleeding and cystoscopy lithotripsy to bladder stone. The patient tolerated the procedure. Prior to the procedure, the patient was breathing comfortably. No nausea, vomiting or any diarrhea. PHYSICAL EXAMINATION: Blood pressure is 102/63 with a pulse of 65, temperature of 98. He is 100% on room air. General description is an elderly male lying in bed in no distress. RESPIRATORY SYSTEM: Unlabored breathing with decreased breath sounds at the base. No wheeze. HEART: S1, S2. Regular rate and rhythm. ABDOMEN: Soft. No tenderness. EXTREMITIES: No edema of the feet. LABS: Hemoglobin 7.2 with a white count 9.3, BUN of 25, creatinine 0.98. DIAGNOSTIC IMPRESSION AND PLAN: 1. Patient with Enterococcus faecalis urinary tract infection, currently on ampicillin and adequately treated. 2. Patient with T11-12 diskitis, possibly the same pathogen as he grew in his urine for a couple of months now, though his blood culture has been negative. The patient's fever responded to the ampicillin as well as his neck pain, more likely the same pathogen. Will continue the patient on ampicillin while in the hospital and continue ampicillin in the outpatient setting with weekly monitoring of CBC, BMP and sed rate. Family was present at the bedside. Their questions and concerns were answered. MMODL / IJN: [id number] /
[2019-02-25] MEDS: IPRATROPIUM-ALBUTEROL 3 ML NEB INHALATION SCH ×7 (00:40→23:38)
[2019-02-25] MEDS: AMPICILLIN 2,000 MG in SODIUM CHLORIDE 0.9% 100 ML IVPB SCH ×5 (04:50→20:17)
[2019-02-25] MEDS ORDERED: GENTAMICIN TROUGH DUE 1 EACH MISC MISCELLANE ONE (05:30)
[2019-02-25] MEDS: GENTAMICIN 120 MG in SODIUM CHLORIDE 0.9% 100 ML IVPB SCH ×2 (06:00→18:11)
[2019-02-25 06:57] LABS: Anisocytosis Slight; Basophils % (A) 0 %; Eosinophils # (A) 0.6 k/uL (0-0.7); Eosinophils % (A) 9 %; HCT 20.2 % (39.0-53.0); Hypochromasia Slight; Lymphocytes # (A) 1.4 k/uL (1.0-4.8); Lymphocytes % (A) 20 %; MCH 27.3 pg (25.0-35.0); MCHC 30.7 g/dL (31.0-37.0); MCV 88.9 fL (80.0-100.0); Mean Platelet Volume 7.6; Monocytes # (A) 0.5 k/uL (0-1.0); Monocytes % (A) 7 %; Neutrophils # (A) 4.3 k/uL (1.3-7.7); Neutrophils % (A) 62 %; Platelet Count 240 k/uL (150-450); RBC 2.27 m/uL (4.30-5.90); RDW 16.1 % (11.5-15.5)
--- NOTE | 2019-02-25 07:22 | P.PN ---
Subjective Progress Note Date: 02/25/19 The poatient underwent cysto with clot evacuation, fulgaration of prostate bleeding and cystolithotripsy yesterday to a large stone in a diverticula THe urine is still pink this am I am not surprised because of chronic anticoagulation and a large prostate. He did have a laser turp in [place] a few months back He remains in retention he may need a cmg followed by a turp at a later date. I would observe him 24 hours longer. Objective - Vital Signs Vital signs: Vital Signs Temp 97.8 F 02/25/19 04:40 Pulse 64 02/25/19 04:52 Resp 18 02/25/19 04:40 BP 103/53 02/25/19 04:40 Pulse Ox 93 L 02/25/19 04:40 Intake & Output 02/24/19 02/25/19 02/25/19 18:59 06:59 18:59 Intake Total 1060 300 Output Total 1520 1075 Balance -460 -775 Weight 96.8 kg Intake: IV 820 Invasive Line 4 10 Invasive Line 5 10 Oral 240 300 Output: Urine 1500 1075 Uretheral ([place]) 50 Estimated Blood Loss 20 Other: Voiding Method Indwelling Catheter Indwelling Catheter - Labs CBC & Chem 7: 02/24/19 16:35 02/24/19 09:06 Labs: Abnormal Lab Results - Last 24 Hours (Table) 02/24/19 02/24/19 02/24/19 Range/Units 09:06 09:06 16:35 RBC 2.55 L 2.58 L (4.30-5.90) m/uL Hgb 7.2 L 7.2 L (13.0-17.5) gm/dL Hct 22.5 L 23.1 L (39.0-53.0) % RDW 15.6 H 15.9 H (11.5-15.5) % Carbon Dioxide 31 H (22-30) mmol/L BUN 25 H (9-20) mg/dL Calcium 8.2 L (8.4-10.2) mg/dL
[2019-02-25 07:23] LABS: HGB 6.2 gm/dL (13.0-17.5)
[2019-02-25 07:24] LABS: Calcium 7.7 mg/dL (8.4-10.2); Potassium 4.1 mmol/L (3.5-5.1)
[2019-02-25] MEDS: SYMBICORT 160-4.5 MCG INHALER INHALATION SCH ×3 (07:35→21:26)
[2019-02-25] MEDS ORDERED: FUROSEMIDE 10 MG/ML 2 ML VIAL IV ONE (09:00)
[2019-02-25] MEDS: SIMETHICONE 80 MG CHEWABLE PO SCH ×4 (09:02→22:34)
[2019-02-25] MEDS: TAMSULOSIN 0.4 MG CAP.ER.24H PO SCH ×2 (09:02→22:34)
[2019-02-25] MEDS: GABAPENTIN 300 MG CAP PO SCH ×3 (09:02→22:34)
[2019-02-25] MEDS: SENNOSIDES-DOCUSATE SODIUM 1 EACH TAB PO SCH (09:02)
--- NOTE | 2019-02-25 10:18 | IR ---
PICC LINE PLACEMENT: HISTORY: Infection requiring long-term antibiotic therapy PROCEDURE: Ultrasound and fluoroscopic guidance of PICC line placement. COMPLICATIONS: None ANESTHESIA: 1. 1% Lidocaine locally. FINDINGS/TECHNIQUE: The procedure was explained to the patient. The risks, complications, benefits and alternatives were discussed and any questions were answered. Informed consent was obtained. The patient was placed supine on the fluoroscopic table and prepped and draped in the usual sterile fash ion. Utilizing a 21 gauge needle and sonographic and fluoroscopic guidance, access in the left basi lic vein was achieved and there is placement of a 0.018 guidewire. The vein is patent. A 4-F sheath was placed over the guidewire. The guidewire and dilator were removed and a 4-F. PICC line was plac ed through the sheath with the tip at the level of the SVC. The sheath was removed, the catheter was flushed and sutured into position. The patient was stable throughout the procedure and remained sta ble upon discharge from the Department of Radiology. The vein puncture was patent under ultrasound. A nuno scale image was obtained to document patency of the vein punctured. All elements of the maximal barrier technique were utilized. FLUOROSCOPY TIME: 0.4 minutes and one submitted IMPRESSION: Successful PICC line placement under ultrasound and fluoroscopic guidance.
[2019-02-25] MEDS: FUROSEMIDE 40 MG TAB PO SCH (12:05)
--- NOTE | 2019-02-25 16:38 | P.PN ---
Subjective Progress Note Date: 02/25/19 Interval history:70-year-old pleasant gentleman was admitted secondary to sepsis from possible discitis as well as urinary tract infection both of which probably from enterococcus. Patient started having hematuria again today IV heparin is being discontinued and patient will be switched 81 mg of aspirin and Plavix will be continued as well. Patient did have mildly elevated troponins, no further intervention from cardiology perspective is being planned and patient had MRI of the spine which did show significant discitis with T11-T12 endplate erosions mildly narrowed spinal canal, no epidural abscess was evident on MRI. He continues to have significant back pain 02/19/2019 Patient's pain is better family has a lot of concerns and questions regarding the his clinical condition aspirin extensive length of time explaining them the plan patient can use to have which area patient's Plavix was held today patient received to his aspirin. Although we cannot hold Plavix too long I'll consult urology. If his hematuria improves patient need to be resumed on Plavix as soon as possible patient will be continued on aspirin patient had a recent stent 2 weeks ago. Patient is a high risk for in-stent stenosis. Ideally infectious disease wanted cultures from the thoracic intervertebral disc but since patient is in aspirin and Plavix, after obtaining cultures will lead to high risk for bleeding into the thoracic spine because of that reason the probable better idea is to continue antibiotics for discitis 8-12 weeks. Same thing was discussed with infectious disease and cardiology along with family. Once his hematuria improves patient need a PICC line need to be discharged to subacute rehab ilitation most probably on Friday Subjective 02/20/2019, today is first day I am taking care of the patient Patient presents with acute back pain, which is better controlled with pain medication. Patient denies weakness in his lower extremity and he told me he went for a walk today which was normal but slow. He denies chest pain currently and his pain is rated as 0/10. Adarsh has hematuria and his been evaluated by Dr. Dubon today, his hematuria most related to enterococcus UTI, BPH as well as aspirin and Plavix. Resolving now. Restart finasteride., He recommended also to keep the Peralta catheter in and follow-up with his urologist Dr. Zuñiga as an outpatient. Infectious disease team also has been consulted for his discitis and UTI 02/21/2019 Patient still complaining of from back pain, he still have hematuria. But is improving slightly. Vitas is stable. Hemoglobin today is stable at 7.8. Patient states he was on Lasix by his pump tester, family at bedside insisting on patient taken Lasix. Recheck chest x-ray shows mild pulmonary congestion and atelectasis, he has mild bilateral leg edema, patient was started on Lasix 40 mg daily. Creatinine 0.9 today. Patient on ampicillin and gentamicin was added by infectious disease team who following the case. Peralta catheter is in place. Patient is on aspirin and Plavix. Patient will be discharged to [facility] when ready 02/22/2019 maintained on IV antibiotics as per infectious disease. PICC line pending. Complains of back pain, mildly improved. Afebrile, normal WBC. Hematuria improving ,hemoglobin 8. Discharge planning in progress for subacute rehab. 02/24/2019 yesterday patient failed voiding trial, peralta reinserted, developed hematuria with clots. Irrigated as recommended per urology. Gross Hematuria per sists,scheduled for cystoscopy, evacuation of clots, lithotripsy of bladder stone today. Received 1 unit of packed RBCs earlier this morning for hemoglobin 6.7 ,Hemoglobin 7.4. Anticoagulation remains on hold. Continues on IV antibiotics of gentamicin. Afebrile. 02/25/2019 underwent cystoscopy yesterday with clot evacuation, fulgaration of prostetic bleeding ,lithrotripsy of large bladder stone. Continues to have hematuria. Irrigated throughout night with no further clots reported. Creatinine mildly elevated, 1.17. Hemoglobin 6.2, receiving one unit of packed RBCs. Pain controlled. Continues on IV antibiotics as per ID. Afebrile, normal WBC. Objective - Vital Signs Vital signs: Vital Signs Temp 98.2 F 02/25/19 15:59 Pulse 63 02/25/19 15:59 Resp 24 02/25/19 15:59 BP 117/54 02/25/19 15:59 Pulse Ox 96 02/25/19 15:59 Intake & Output 02/24/19 02/25/19 02/25/19 18:59 06:59 18:59 Intake Total 8821 585 4711 Output Total 1520 1075 680 Balance -460 -919 812 Weight 96.8 kg Intake: IV 820 520 0.9 @ 20 mL 320 Ampicillin 2,000 mg In 200 Sodium Chloride 0.9% 100 ml @ 200 mls/hr IVPB Q4HR [facility] Rx#:[id number] Invasive Line 4 10 Invasive Line 5 10 Oral 240 300 322 Blood Product 310 Rc Pheresis 2 As3 Unit 310 [id number] Output: Urine 1500 1075 680 Uretheral (Peralta) 50 Estimated Blood Loss 20 Other: Voiding Method Indwelling Catheter Indwelling Catheter Indwelling Catheter - Exam GENERAL: Sitting up at in bed, alert and oriented x3, no acute distress. HEENT: Pupils are round and equally reacting to light. EOMI. No scleral icterus. No conjunctival pallor. Normocephalic, atraumatic. CARDIOVASCULAR: S1 and S2 present. No murmurs, rubs, or gallops. PULMONARY: Chest is clear to auscultation, no wheezing or crackles. -ABDOMEN: Soft, nontender, nondistended, normoactive bowel sounds. No palpable organomegaly. MUSCULOSKELETAL: No joint swelling or deformity. EXTREMITIES: No cyanosis, clubbing, or pedal edema. NEUROLOGICAL: Gross neurological examination did not reveal any focal deficits. SKIN: No rashes. Microbiology 02/16/19 07:35 Blood Blood Culture - Final No Growth after 144 hours 02/16/19 17:28 Blood Blood Culture - Preliminary No Growth after 120 hours 02/16/19 09:32 Urine,Voided Urine Culture - Final Enterococcus faecalis - Labs CBC & Chem 7: 02/25/19 06:00 02/25/19 06:00 Labs: Abnormal Lab Results - Last 24 Hours (Table) 02/24/19 02/24/19 02/25/19 Range/Units 01:44 16:35 06:00 RBC 2.58 L (4.30-5.90) m/uL Hgb 7.2 L (13.0-17.5) gm/dL Hct 23.1 L (39.0-53.0) % MCHC (31.0-37.0) g/dL RDW 15.9 H (11.5-15.5) % BUN 28 H (9-20) mg/dL Glucose 105 H (74-99) mg/dL Calcium 7.7 L (8.4-10.2) mg/dL Crossmatch See Detail 02/25/19 Range/Units 06:00 RBC 2.27 L (4.30-5.90) m/uL Hgb 6.2 L* (13.0-17.5) gm/dL Hct 20.2 L (39.0-53.0) % MCHC 30.7 L (31.0-37.0) g/dL RDW 16.1 H (11.5-15.5) % BUN (9-20) mg/dL Glucose (74-99) mg/dL Calcium (8.4-10.2) mg/dL Crossmatch Assessment and Plan Assessment: -Sepsis: Secondary to enterococcus urinary tract infection and discitis of T11- T12 thoracic vertebrae -Hematuria,heparin was discontinued.status post cystoscopy with clot evacuation, fulgaration of prostate bleeding , cystoscopy lithrotripsy of large bladder stone. -Acute on chronic blood loss anemia secondary to hematuria, multifactorial related to infection, urinary retention, large prostate, clot retention, stones. Status post transfusion of packed RBCs. -Possibly infected renal calculus. Microorganism is enterococcus. -Recent history of Possible non-ST elevation myocardial infarction: Patient had a recent stent because of which we cannot hold a dual antiplatelet therapy too long. -Chronic urinary retention: Patient will be resumed on Flomax, Peralta catheter placed as per urology recommendations. -Coronary Artery disease -History of DVT in the past presently not on any anticoagulation as an outpatient -Hyperlipidemia -Benign prostatic hypertrophy Plan: Continue on current medication regime ,monitoring and symptomatic treatment. Anticoagulation remains on hold, postprocedure; hematuria currently. Continues on IV antibiotics as per ID. PT.one unit of packed RBCs ordered and transfusing currently .close monitoring of CBC, electrolyte with repeat labs ordered for a.m. prognosis guarded given multiple complex medical issues. The impression and plan of care has been dictated as directed. : I performed a history and examination of this patient, discussed the same with the dictator. I agree with the dictator's note ,documented as a scribe. Any additional findings or plans will be noted.
--- NOTE | 2019-02-25 17:24 | P.PN ---
Subjective Progress Note Date: 02/17/19 Interval history:Patient is a very pleasant 78-year-old gentleman came in with complaints of fever high-grade was recently treated for urinary tract infection patient is comparing of UTI symptoms including dysuria patient was treated with Macrobid patient in the past enterococcus in the urine . Patient was also complaining of shortness of breath denied any orthopnea paroxysmal nocturnal dyspnea was complaining of chest pain sharp in nature patient has one set of troponin that was 0.06 and the second one 0.121 patient had recent cardiac catheterization at that time patient is found to have patent stents in LAD. Cardiology evaluated the patient regarding his chest pain. Patient apparently had some wheezing earlier today which improved with breathing treatments, and I evaluated there is no significant wheezing at but since he is still complaining of shortness of breath there is no evidence of pulmonary embolism or pulmonary edema, ordered the inhaled steroids. Patient had a CAT scan of the chest rule out pulmonary embolism because of elevated d-dimer which showed possible discitis at T11-T12 level because of which I consulted infectious disease blood cultures were obtained patient is alr jagdeep in vancomycin patient is already also on Rocephin was of which will be continued at this time. Patient did complain of increasing back pain although denied any increased weakness. Patient denied any cough. Does have urinary retention does follow with urology as an outpatient. 02/17/2019 Continues to have significant back pain, denies worsening. Evaluated by orthopedics. MRI completed suggesting significant discitis/osteomyelitis T11 through T12 endplate erosions mildly narrowed spinal canal, no epidural abscess . Continues on IV antibiotics as per infectious disease .Maintaining O2 sats of high 90s on 3 L nasal cannula. T-max 100.5, preliminary blood cultures currently negative, urine culture reporting enterococcus group D. Hair catheter placed for urinary retention. Troponins trending up, currently 0.187. Evaluated by cardiology, recommendations noted .Fourth troponin pending. Constitutional: Denied any fatigue denied any fever. Cardio vascular: denied any chest pain, palpitations Gastrointestinal denied any nausea vomiting Pulmonary: Denied any shortness of breath cough Neurologic denied any new focal deficits All inpatient medications were reviewed and appropriate changes in these medications as dictated in the interval history and assessment and plan. Objective - Vital Signs Vital signs: Vital Signs Temp 98.2 F 02/17/19 16:00 Pulse 60 03/20/19 16:18 Resp 18 02/17/19 16:00 BP 134/63 02/17/19 16:00 Pulse Ox 99 02/17/19 16:00 Intake & Output 02/16/19 02/17/19 02/17/19 18:59 06:59 18:59 Intake Total 472 79.317 714.946 Output Total 925 525 Balance -453 -445.683 714.946 Weight 93 kg 93.8 kg Intake: Intake, IV Titration 250 79.317 234.946 Amount Heparin Sod,Pork in 0.45% 79.317 234.946 NaCl 25,000 unit In 0.45 % NaCl 1 250ml.bag @ 10. 75 UNITS/KG/HR 9.998 mls/ hr IV .Q24H [facility] Rx#: [id number] Vancomycin 1,500 mg In 250 Sodium Chloride 0.9% 250 ml @ 125 mls/hr IVPB Q16H [facility] Rx#:[id number] Oral 222 480 Output: Urine 925 525 Uretheral (Hair) 325 Other: Voiding Method Indwelling Catheter Indwelling Catheter Indwelling Catheter - Exam GENERAL: Sitting up at in bed, alert and oriented x3, no acute distress. HEENT: Pupils are round and equally reacting to light. EOMI. No scleral icterus. No conjunctival pallor. Normocephalic, atraumatic. CARDIOVASCULAR: S1 and S2 present. No murmurs, rubs, or gallops. PULMONARY: Chest is clear to auscultation, no wheezing or crackles. No rhonchi -ABDOMEN: Soft, nontender, nondistended, normoactive bowel sounds. No palpable organomegaly. MUSCULOSKELETAL: No joint swelling or deformity. EXTREMITIES: No cyanosis, clubbing, or pedal edema. NEUROLOGICAL: Gross neurological examination did not reveal any focal deficits. SKIN: No rashes. - Labs CBC & Chem 7: 02/25/19 06:00 02/25/19 06:00 Labs: Abnormal Lab Results - Last 24 Hours (Table) 02/16/19 02/16/19 02/17/19 Range/Units 18:47 23:41 07:26 RBC 3.25 L (4.30-5.90) m/uL Hgb 9.1 L D (13.0-17.5) gm/dL Hct 29.2 L (39.0-53.0) % RDW 15.8 H (11.5-15.5) % Lymphocytes # 0.5 L (1.0-4.8) k/uL APTT 36.9 H (22.0-30.0) sec Troponin I 0.163 H* (0.000-0.034) ng/mL 02/17/19 02/17/19 02/17/19 Range/Units 07:26 07:26 16:03 RBC (4.30-5.90) m/uL Hgb (13.0-17.5) gm/dL Hct (39.0-53.0) % RDW (11.5-15.5) % Lymphocytes # (1.0-4.8) k/uL APTT 40.8 H 45.8 H (22.0-30.0) sec Troponin I 0.187 H* (0.000-0.034) ng/mL Microbiology - Last 24 Hours (Table) 02/16/19 09:32 Urine Culture - Preliminary Urine,Voided Group D Enterococcus 02/16/19 07:35 Blood Culture - Preliminary Blood No Growth after 24 hours Assessment and Plan Assessment: -Sepsis: Secondary to enterococcus urinary tract infection and discitis of T11- T12 thoracic vertebrae -Possible non-ST elevation myocardial infarction, in a patient with history of CAD, recent stents. Workup in progress as per cardiology. -Chronic Urinary retention, requiring Hair catheter -History of UTI,sepsis -Benign prostatic hypertrophy, history of TURP- -History of DVT in the past presently not on any anticoagulation as an outpatient. -Hyperlipidemia -Ongoing nicotine dependence -Chronic anemia Plan: Continue on current medication regime , Flomax, monitoring and symptomatic treatment. Maintain IV antibiotics of Rocephin, vancomycin as per infectious disease. Troponins trending up, fourth troponin pending. Close monitoring of renal function, electrolytes, hemoglobin with repeat labs ordered for a.m. continue following cultures closely. Prognosis guarded given multiple complex medical issues. The impression and plan of care has been dictated as directed. : I performed a history and examination of this patient, discussed the same with the dictator. I agree with the dictator's note ,documented as a scribe. Any additional findings or plans will be noted.
--- NOTE | 2019-02-25 22:19 | PN ---
PROGRESS NOTE DATE OF SERVICE: 02/25/2019 REASON FOR FOLLOWUP: 1. Enterococcus urinary tract infection. 2. Patient with T11/12 diskitis. INTERVAL HISTORY: The patient is currently afebrile, has been breathing comfortably. The patient's urine is getting less bloody. Denies any abdominal pain. No nausea, vomiting. No chest pain, shortness of breath or cough. No pain to the mid back area. PHYSICAL EXAMINATION: Blood pressure 117/54 with a pulse of 63, temperature 98.2. He is 96% on room air. General description is an elderly male lying in bed in no distress. RESPIRATORY SYSTEM: Unlabored breathing with decreased breath sounds at the base. No wheeze. HEART: S1, S2. Regular rate and rhythm. ABDOMEN: Soft. No tenderness. EXTREMITIES: No edema of the feet. LABS: Hemoglobin is 6.8, white count 7, with a BUN of 28, creatinine 1.17. DIAGNOSTIC IMPRESSION AND PLAN: 1. Patient with Enterococcus faecalis urinary tract infection, currently covered with ampicillin. 2. Patient with T11/12 diskitis with concern for likely same pathogen which he grew over the last 4 months. Disc could not be done, as the patient was on Plavix, which could not be put on hold because the patient recently had a cardiac stent placement. Patient to continue with . Will need to monitor his kidney function very closely as well as levels. Continue with supportive care. MMODL / IJN: [id number] /
[2019-02-25] MEDS: ATORVASTATIN 80 MG TAB PO SCH (22:34)
[2019-02-26] MEDS: AMPICILLIN 2,000 MG in SODIUM CHLORIDE 0.9% 100 ML IVPB SCH ×7 (00:09→23:14)
[2019-02-26] MEDS: SODIUM CHLORIDE 0.9% 1,000 ML IV SCH ×2 (00:11→07:38)
[2019-02-26] MEDS: IPRATROPIUM-ALBUTEROL 3 ML NEB INHALATION SCH ×6 (03:48→19:23)
[2019-02-26 06:47] LABS: Potassium 4.1 mmol/L (3.5-5.1)
[2019-02-26 06:56] LABS: Anisocytosis Slight; Basophils % (A) 1 %; Eosinophils # (A) 0.5 k/uL (0-0.7); Eosinophils % (A) 8 %; HCT 20.6 % (39.0-53.0); Hypochromasia Moderate; Lymphocytes # (A) 1.2 k/uL (1.0-4.8); Lymphocytes % (A) 18 %; MCHC 32.3 g/dL (31.0-37.0); MCV 89.7 fL (80.0-100.0); Mean Platelet Volume 7.5; Monocytes # (A) 0.6 k/uL (0-1.0); Monocytes % (A) 9 %; Neutrophils # (A) 4.2 k/uL (1.3-7.7); Neutrophils % (A) 62 %; Platelet Count 230 k/uL (150-450); RDW 16.4 % (11.5-15.5); WBC 6.8 k/uL (3.8-10.6)
[2019-02-26 07:09] LABS: HGB 6.7 gm/dL (13.0-17.5)
--- NOTE | 2019-02-26 07:43 | P.PN ---
Subjective Progress Note Date: 02/26/19 The patient urine is cleared enough that he may be discharged home from a urologic standpoint. He should be seen in the office in a couple weeks for a voiding trial. If he is unable to void he would need urodynamic studies to see the function of his bladder. He may need a secondary TURP to completely relieve the obstruction. Objective - Vital Signs Vital signs: Vital Signs Temp 98.3 F 02/26/19 07:21 Pulse 61 02/26/19 07:21 Resp 18 02/26/19 07:21 BP 118/57 02/26/19 07:21 Pulse Ox 92 L 02/26/19 07:21 Intake & Output 02/25/19 02/26/19 02/26/19 18:59 06:59 18:59 Intake Total 1252 Output Total 680 1700 Balance 572 -1700 Weight 89.5 kg Intake: IV 520 0.9 @ 20 mL 320 Ampicillin 2,000 mg In 200 Sodium Chloride 0.9% 100 ml @ 200 mls/hr IVPB Q4HR [facility] Rx#:[id number] Oral 422 Blood Product 310 Rc Pheresis 2 As3 Unit 310 [id number] Output: Urine 680 1700 Other: Voiding Method Indwelling Catheter Indwelling Catheter - Labs CBC & Chem 7: 02/26/19 05:58 02/26/19 05:58 Labs: Abnormal Lab Results - Last 24 Hours (Table) 02/24/19 02/26/19 02/26/19 Range/Units 01:44 05:58 05:58 RBC 2.30 L (4.30-5.90) m/uL Hgb 6.7 L* (13.0-17.5) gm/dL Hct 20.6 L (39.0-53.0) % RDW 16.4 H (11.5-15.5) % BUN 23 H (9-20) mg/dL Glucose 110 H (74-99) mg/dL Calcium 8.0 L (8.4-10.2) mg/dL Crossmatch See Detail
[2019-02-26] MEDS: SIMETHICONE 80 MG CHEWABLE PO SCH ×4 (08:00→21:41)
[2019-02-26] MEDS: TAMSULOSIN 0.4 MG CAP.ER.24H PO SCH ×2 (08:00→21:41)
[2019-02-26] MEDS: GABAPENTIN 300 MG CAP PO SCH ×3 (08:00→21:41)
[2019-02-26] MEDS: FUROSEMIDE 40 MG TAB PO SCH (08:00)
[2019-02-26] MEDS: SENNOSIDES-DOCUSATE SODIUM 1 EACH TAB PO SCH (08:00)
[2019-02-26] MEDS: SYMBICORT 160-4.5 MCG INHALER INHALATION SCH ×2 (08:50→19:22)
[2019-02-26] MEDS: GENTAMICIN 120 MG in SODIUM CHLORIDE 0.9% 100 ML IVPB SCH (09:31)
--- NOTE | 2019-02-26 17:32 | P.PN ---
<Rain Babcock - Last Filed: 02/26/19 17:29> Subjective Progress Note Date: 02/26/19 Interval history:Patient is a very pleasant 78-year-old gentleman came in with complaints of fever high-grade was recently treated for urinary tract infection patient is comparing of UTI symptoms including dysuria patient was treated with Macrobid patient in the past enterococcus in the urine . Patient was also complaining of shortness of breath denied any orthopnea paroxysmal nocturnal dyspnea was complaining of chest pain sharp in nature patient has one set of troponin that was 0.06 and the second one 0.121 patient had recent cardiac catheterization at that time patient is found to have patent stents in LAD. Cardiology evaluated the patient regarding his chest pain. Patient apparently had some wheezing earlier today which improved with breathing treatments, and I evaluated there is no significant wheezing at but since he is still complaining of shortness of breath there is no evidence of pulmonary embolism or pulmonary edema, ordered the inhaled steroids. Patient had a CAT scan of the chest rule out pulmonary embolism because of elevated d-dimer which showed possible discitis at T11-T12 level because of which I consulted infectious disease blood cultures were obtained patient is already in vancomycin patient is already also on Rocephin was of which will be continued at this time. Patient did complain of increasing back pain although denied any increased weakness. Patient denied any cough. Does have urinary retention does follow with urology as an outpatient. 02/17/2019 Continues to have significant back pain, denies worsening. Evaluated by orthopedics. MRI completed suggesting significant discitis/osteomyelitis T11 through T12 endplate erosions mildly narrowed spinal canal, no epidural abscess . Continues on IV antibiotics as per infectious disease .Maintaining O2 sats of high 90s on 3 L nasal cannula. T-max 100.5, preliminary blood cultures currently negative, urine culture reporting enterococcus group D. Peralta catheter placed for urinary retention. Troponins trending up, currently 0.187. Evaluated by cardiology, recommendations noted .Fourth troponin pending. 02/18/2019 78-year-old pleasant gentleman was admitted secondary to sepsis from possible discitis as well as urinary tract infection both of which probably from enterococcus. Patient started having hematuria again today IV heparin is being discontinued and patient will be switched 81 mg of aspirin and Plavix will be continued as well. Patient did have mildly elevated troponins, no further intervention from cardiology perspective is being planned and patient had MRI of the spine which did show significant discitis with T11-T12 endplate erosions mildly narrowed spinal canal, no epidural abscess was evident on MRI. He continues to have significant back pain 02/19/2019 Patient's pain is better family has a lot of concerns and questions regarding the his clinical condition aspirin extensive length of time explaining them the plan patient can use to have which area patient's Plavix was held today patient received to his aspirin. Although we cannot hold Plavix too long I'll consult urology. If his hematuria improves patient need to be resumed on Plavix as soon as possible patient will be continued on aspirin patient had a recent stent 2 weeks ago. Patient is a high risk for in-stent stenosis. Ideally infectious disease wanted cultures from the thoracic intervertebral disc but since patient is in aspirin and Plavix, after obtaining cultures will lead to high risk for bleeding into the thoracic spine because of that reason the probable better idea is to continue antibiotics for discitis 8-12 weeks. Same thing was discussed with infectious disease and cardiology along with family. Once his hematuria improves patient need a PICC line need to be discharged to subacute rehabilitation most probably on Friday Subjective 02/20/2019, today is first day I am taking care of the patient Patient presents with acute back pain, which is better controlled with pain medication. Patient denies weakness in his lower extremity and he told me he went for a walk today which was normal but slow. He denies chest pain currently and his pain is rated as 0/10. Adarsh has hematuria and his been evaluated by Dr. Dubon today, his hematuria most related to enterococcus UTI, BPH as well as aspirin and Plavix. Resolving now. Restart finasteride., He recommended also to keep the Peralta catheter in and follow-up with his urologist Dr. Zuñiga as an outpatient. Infectious disease team also has been consulted for his discitis and UTI 02/21/2019 Patient still complaining of from back pain, he still have hematuria. But is improving slightly. Vitas is stable. Hemoglobin today is stable at 7.8. 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 Recheck chest x-ray shows mild pulmonary congestion and atelectasis, he has mild bilateral leg edema, patient was started on Lasix 40 mg daily. Creatinine 0.9 today. Patient on ampicillin and gentamicin was added by infectious disease team who following the case. Peralta catheter is in place. Patient is on aspirin and Plavix. Patient will be discharged to [facility] when ready 02/22/2019 maintained on IV antibiotics as per infectious disease. PICC line pending. Complains of back pain, mildly improved. Afebrile, normal WBC. Hematuria improving ,hemoglobin 8. Discharge planning in progress for subacute rehab. 02/24/2019 yesterday patient failed voiding trial, peralta reinserted, developed hematuria with clots. Irrigated as recommended per urology. Gross Hematuria persists,scheduled for cystoscopy, evacuation of clots, lithotripsy of bladder stone today. Received 1 unit of packed RBCs earlier this morning for hemoglobin 6.7 ,Hemoglobin 7.4. Anticoagulation remains on hold. Continues on IV antibiotics of gentamicin. Afebrile. 02/25/2019 underwent cystoscopy yesterday with clot evacuation, fulgaration of prostetic bleeding ,lithrotripsy of large bladder stone. Continues to have hematuria. Irrigated throughout night with no further clots reported. Creatinine mildly elevated, 1.17. Hemoglobin 6.2, receiving one unit of packed RBCs. Pain controlled. Continues on IV antibiotics as per ID. Afebrile, normal WBC. 02/26/2019 hematuria clearing. Hemoglobin 6.7, receiving a unit of packed RBCs. Anticoagulation remains on hold as discussed with cardiology. Denies chest pain, palpitations or increasing shortness of breath. Maintained on IV antibiotics. Afebrile. Objective - Vital Signs Vital signs: Vital Signs Temp 98.1 F 02/26/19 15:42 Pulse 60 02/26/19 16:23 Resp 20 02/26/19 16:00 BP 121/66 02/26/19 15:42 Pulse Ox 96 02/26/19 15:42 Intake & Output 02/25/19 02/26/19 02/26/19 18:59 06:59 18:59 Intake Total 1252 1090 Output Total 680 1700 2000 Balance 382 1700 910 Weight 89.5 kg Intake: IV 520 420 0.9 @ 20 mL 320 320 Ampicillin 2,000 mg In 200 100 Sodium Chloride 0.9% 100 ml @ 200 mls/hr IVPB Q4HR [facility] Rx#:[id number] Oral 422 360 Blood Product 310 310 Rc Pheresis 2 As3 Unit 310 [id number] Rc Pheresis As-3 Unit 310 [id number] Output: Urine 680 1700 2000 Other: Voiding Method Indwelling Catheter Indwelling Catheter Indwelling Catheter - Exam GENERAL: Sitting up at in bed, alert and oriented x3, no acute distress. HEENT: Pupils are round and equally reacting to light. EOMI. No scleral icterus. No conjunctival pallor. atraumatic. CARDIOVASCULAR: S1 and S2 present. No murmurs, rubs, or gallops. PULMONARY: Chest is clear to auscultation, no wheezing or crackles. No rhonchi -ABDOMEN: Soft, nontender, nondistended, normoactive bowel sounds. No palpable organomegaly. MUSCULOSKELETAL: No joint swelling or deformity. EXTREMITIES: No cyanosis, clubbing, or pedal edema. NEUROLOGICAL: No focal deficits. - Labs CBC & Chem 7: 02/26/19 05:58 02/26/19 05:58 Labs: Abnormal Lab Results - Last 24 Hours (Table) 02/24/19 02/26/19 02/26/19 Range/Units 01:44 05:58 05:58 RBC 2.30 L (4.30-5.90) m/uL Hgb 6.7 L* (13.0-17.5) gm/dL Hct 20.6 L (39.0-53.0) % RDW 16.4 H (11.5-15.5) % BUN 23 H (9-20) mg/dL Glucose 110 H (74-99) mg/dL Calcium 8.0 L (8.4-10.2) mg/dL Crossmatch See Detail Assessment and Plan Assessment: -Sepsis: Secondary to enterococcus urinary tract infection and discitis of T11- T12 thoracic vertebrae -Possible non-ST elevation myocardial infarction, in a patient with history of CAD, recent stents. Workup in progress as per cardiology. -Chronic Urinary retention, requiring Peralta catheter -History of UTI,sepsis -Benign prostatic hypertrophy, history of TURP- -History of DVT in the past presently not on any anticoagulation as an outpatient. -Hyperlipidemia -Ongoing nicotine dependence -Chronic anemia Plan: Continue on current medication regime , Flomax, monitoring and symptomatic treatment. Anticoagulation discussed further with cardiology; continue to hold anticoagulation as patient receiving another unit of packed RBCs as recommended per cardiology, in a patient with recent stents. IV antibiotics as per infectious disease. Close monitoring of renal function, hemoglobin with repeat labs ordered for a.m. continue following cultures closely. Prognosis guarded given multiple complex medical issues. Prognosis guarded Multiple complex medical issues. The impression and plan of care has been dictated as directed. : I performed a history and examination of this patient, discussed the same with the dictator. I agree with the dictator's note ,documented as a scribe. Any additional findings or plans will be noted. <Benedicto,Edison E - Last Filed: 02/26/19 19:07> Subjective I have discussed the case with cardiology team, they recommended to hold aspirin and Plavix currently as patient is actively bleeding and he needed more than 2 units of blood transfusion. This puts him at risk heart attack however in view of his active bleeding his anti-platelets therapy has to be stopped. Objective - Vital Signs Vital signs: Vital Signs Temp 98.1 F 02/26/19 15:42 Pulse 64 02/26/19 17:40 Resp 16 02/26/19 17:40 BP 121/66 02/26/19 15:42 Pulse Ox 96 02/26/19 15:42 Intake & Output 02/26/19 02/26/19 02/27/19 06:59 18:59 06:59 Intake Total 1190 Output Total 1700 2000 Balance -1700 -810 Weight 89.5 kg Intake: IV 420 0.9 @ 20 mL 320 Ampicillin 2,000 mg In 100 Sodium Chloride 0.9% 100 ml @ 200 mls/hr IVPB Q4HR [facility] Rx#:[id number] Oral 460 Blood Product 310 Rc Pheresis As-3 Unit 310 [id number] Output: Urine 1700 2000 Other: Voiding Method Indwelling Catheter Indwelling Catheter - Labs CBC & Chem 7: 02/26/19 05:58 02/26/19 05:58 Labs: Abnormal Lab Results - Last 24 Hours (Table) 02/24/19 02/26/19 02/26/19 Range/Units 01:44 05:58 05:58 RBC 2.30 L (4.30-5.90) m/uL Hgb 6.7 L* (13.0-17.5) gm/dL Hct 20.6 L (39.0-53.0) % RDW 16.4 H (11.5-15.5) % BUN 23 H (9-20) mg/dL Glucose 110 H (74-99) mg/dL Calcium 8.0 L (8.4-10.2) mg/dL Crossmatch See Detail
[2019-02-26] MEDS: ATORVASTATIN 80 MG TAB PO SCH (21:41)
--- NOTE | 2019-02-27 00:20 | PN ---
PROGRESS NOTE DATE OF SERVICE: 02/26/2019. REASON FOR FOLLOW UP: Enterococcus urinary tract infection, T11 to 12 diskitis. INTERVAL HISTORY: The patient is currently afebrile. He is breathing comfortably. Denies any chest pain or shortness of breath or cough. The back pain has improved. No nausea, vomiting or diarrhea. PHYSICAL EXAMINATION: Blood pressure 124/52 with a pulse of 73, temperature 98.6. He is 97% on room air. GENERAL DESCRIPTION: An elderly male lying in bed in no distress. RESPIRATORY SYSTEM: Unlabored breathing. Clear to auscultation anteriorly. HEART: S1, S2. Regular rate and rhythm. ABDOMEN: Soft, no tenderness. LABS: Hemoglobin 6.7, white count 6.8 with a BUN of 23, creatinine 1.07. DIAGNOSTIC IMPRESSION AND PLAN: 1. Patient with Enterococcus faecalis urinary infection, adequately treated. 2. The patient with T1 to 12 diskitis with concern for possible pathogen as he has grown the same Enterococcus faecalis in the summer of 2018 in the urine. The patient is currently covered with amp and gent. We are monitoring his kidney function closely. Continue supportive care. MMODL / IJN: [id number] /
[2019-02-27] MEDS: IPRATROPIUM-ALBUTEROL 3 ML NEB INHALATION SCH ×6 (01:06→19:18)
[2019-02-27] MEDS: GENTAMICIN 120 MG in SODIUM CHLORIDE 0.9% 100 ML IVPB SCH ×2 (04:23→21:05)
[2019-02-27] MEDS: AMPICILLIN 2,000 MG in SODIUM CHLORIDE 0.9% 100 ML IVPB SCH ×6 (04:23→22:56)
[2019-02-27 07:55] LABS: Anisocytosis Slight; Basophils % (A) 1 %; Eosinophils # (A) 0.6 k/uL (0-0.7); Eosinophils % (A) 8 %; HCT 23.2 % (39.0-53.0); HGB 7.5 gm/dL (13.0-17.5); Hypochromasia Moderate; Lymphocytes # (A) 1.2 k/uL (1.0-4.8); Lymphocytes % (A) 16 %; MCH 29.2 pg (25.0-35.0); MCHC 32.3 g/dL (31.0-37.0); MCV 90.4 fL (80.0-100.0); Mean Platelet Volume 7.8; Monocytes # (A) 0.6 k/uL (0-1.0); Monocytes % (A) 8 %; Neutrophils % (A) 66 %; Platelet Count 241 k/uL (150-450); RBC 2.56 m/uL (4.30-5.90); RDW 16.3 % (11.5-15.5); WBC 7.6 k/uL (3.8-10.6)
[2019-02-27] MEDS: SYMBICORT 160-4.5 MCG INHALER INHALATION SCH ×3 (07:58→19:33)
[2019-02-27 08:14] LABS: Calcium 8.4 mg/dL (8.4-10.2); Potassium 4.7 mmol/L (3.5-5.1)
[2019-02-27] MEDS: SIMETHICONE 80 MG CHEWABLE PO SCH ×4 (08:28→20:23)
[2019-02-27] MEDS: SENNOSIDES-DOCUSATE SODIUM 1 EACH TAB PO SCH (08:29)
[2019-02-27] MEDS: FUROSEMIDE 40 MG TAB PO SCH (08:29)
[2019-02-27] MEDS: TAMSULOSIN 0.4 MG CAP.ER.24H PO SCH ×2 (08:29→20:22)
[2019-02-27] MEDS: GABAPENTIN 300 MG CAP PO SCH ×3 (08:29→20:22)
--- NOTE | 2019-02-27 11:15 | P.PN ---
Subjective Progress Note Date: 02/27/19 The patient's urine has cleared. From a urologic standpoint he can be discharged home or transferred to the rehab facility whenever is recommended. From urologic standpoint I will try his catheter out in a week or so for her final voiding trial. If he is unable to void then he will need a urodynamic st udy to see if the bladder function. If it doesn't he'll need a secondary TURP to complete the green light laser prostatectomy done in [place]. Objective - Vital Signs Vital signs: Vital Signs Temp 98 F 02/27/19 11:11 Pulse 58 L 02/27/19 11:11 Resp 18 02/27/19 11:11 BP 114/57 02/27/19 11:11 Pulse Ox 96 02/27/19 11:11 Intake & Output 02/26/19 02/27/19 02/27/19 18:59 06:59 18:59 Intake Total 1190 240 Output Total 1999 2300 Balance -810 -2300 240 Weight 90 kg Intake: IV 420 0.9 @ 20 mL 320 Ampicillin 2,000 mg In 100 Sodium Chloride 0.9% 100 ml @ 200 mls/hr IVPB Q4HR [facility] Rx#:[id number] Oral 460 240 Blood Product 310 Rc Pheresis As-3 Unit 310 [id number] Output: Urine 1999 2300 Other: Voiding Method Indwelling Catheter Indwelling Catheter Indwelling Catheter - Labs CBC & Chem 7: 02/27/19 06:53 02/27/19 06:53 Labs: Abnormal Lab Results - Last 24 Hours (Table) 02/24/19 02/27/19 02/27/19 Range/Units 01:44 06:53 06:53 RBC 2.56 L (4.30-5.90) m/uL Hgb 7.5 L (13.0-17.5) gm/dL Hct 23.2 L (39.0-53.0) % RDW 16.3 H (11.5-15.5) % BUN 21 H (9-20) mg/dL Glucose 106 H (74-99) mg/dL Crossmatch See Detail
[2019-02-27] MEDS: SODIUM CHLORIDE 0.9% 1,000 ML IV SCH (11:19)
[2019-02-27] MEDS: ATORVASTATIN 80 MG TAB PO SCH (20:23)
--- NOTE | 2019-02-27 23:17 | P.PN ---
Subjective I have discussed the case with cardiology team, they recommended to hold aspirin and Plavix currently as patient is actively bleeding and he needed more than 2 units of blood transfusion. This puts him at risk heart attack however in view of his active bleeding his anti-platelets therapy has to be stopped. subjective pt is stable , his back pain is about 5-6 , it is stable, pt has hematuria which is resolving throught hte peralta catheter. i discussed the case with the sequencing machine operator team today, still recommending holding asa and plavix given his sever recent bleeding and need more than one unit of blood transfusion . pt was cleared by urology team for discharge. Objective - Vital Signs Vital signs: Vital Signs Temp 98 F 02/27/19 20:00 Pulse 65 02/27/19 20:00 Resp 18 02/27/19 20:00 BP 121/56 02/27/19 20:00 Pulse Ox 97 02/27/19 20:00 Intake & Output 02/27/19 02/27/19 02/28/19 06:59 18:59 06:59 Intake Total 480 Output Total 2300 600 Balance -2300 -120 Weight 90 kg Intake: Oral 480 Output: Urine 2300 600 Other: Voiding Method Indwelling Catheter Indwelling Catheter Indwelling Catheter - Exam GENERAL: The patient is alert and oriented x3, not in any acute distress. Well developed, well nourished. HEENT: Pupils are round and equally reacting to light. EOMI. No scleral icterus. No conjunctival pallor. Normocephalic, atraumatic. No pharyngeal erythema. No thyromegaly. CARDIOVASCULAR: S1 and S2 present. No murmurs, rubs, or gallops. PULMONARY: Chest is clear to auscultation, no wheezing or crackles. -ABDOMEN: Soft, nontender, nondistended, normoactive bowel sounds. No palpable organomegaly. Peralta catheter in place, with little dark urine in the back MUSCULOSKELETAL: No joint swelling or deformity. EXTREMITIES: No cyanosis, clubbing, or pedal edema. NEUROLOGICAL: Gross neurological examination did not reveal any focal deficits. SKIN: No rashes. 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 Patient is presently on ampicillin -Hematuria because of which heparin was discontinued -Possibly infected renal calculus. Microorganism is enterococcus. Continue with antibiotic -Recent history of Possible non-ST elevation myocardial infarction: Patient had a recent stent because of which we cannot hold a dual antiplatelet therapy for to long -Chronic urinary retention: Patient will be resumed on Flomax, patient may need a Peralta catheter. -History of Coronary Artery disease -History of DVT in the past presently not on any anticoagulation as an outpatient -Hyperlipidemia -Benign prostatic hypertrophy
[2019-02-28] MEDS: IPRATROPIUM-ALBUTEROL 3 ML NEB INHALATION SCH ×7 (00:23→23:39)
[2019-02-28] MEDS: AMPICILLIN 2,000 MG in SODIUM CHLORIDE 0.9% 100 ML IVPB SCH ×5 (03:53→20:22)
[2019-02-28 06:54] LABS: Anisocytosis Slight; Basophils % (A) 1 %; Eosinophils # (A) 0.5 k/uL (0-0.7); Eosinophils % (A) 7 %; HGB 7.7 gm/dL (13.0-17.5); Hypochromasia Moderate; Lymphocytes # (A) 1.2 k/uL (1.0-4.8); Lymphocytes % (A) 17 %; MCH 29.1 pg (25.0-35.0); MCV 90.9 fL (80.0-100.0); Monocytes # (A) 0.5 k/uL (0-1.0); Monocytes % (A) 8 %; Neutrophils # (A) 4.5 k/uL (1.3-7.7); Neutrophils % (A) 65 %; Platelet Count 273 k/uL (150-450); RBC 2.64 m/uL (4.30-5.90); RDW 16.6 % (11.5-15.5); WBC 6.9 k/uL (3.8-10.6)
[2019-02-28 07:00] LABS: Calcium 8.4 mg/dL (8.4-10.2); Potassium 4.5 mmol/L (3.5-5.1)
[2019-02-28] MEDS: FUROSEMIDE 40 MG TAB PO SCH (07:53)
[2019-02-28] MEDS: SENNOSIDES-DOCUSATE SODIUM 1 EACH TAB PO SCH (07:53)
[2019-02-28] MEDS: SIMETHICONE 80 MG CHEWABLE PO SCH ×4 (07:53→23:53)
[2019-02-28] MEDS: GABAPENTIN 300 MG CAP PO SCH ×3 (07:54→23:53)
[2019-02-28] MEDS: TAMSULOSIN 0.4 MG CAP.ER.24H PO SCH ×2 (07:54→23:53)
[2019-02-28] MEDS: SYMBICORT 160-4.5 MCG INHALER INHALATION SCH ×2 (08:31→19:54)
[2019-02-28] MEDS: SODIUM CHLORIDE 0.9% 1,000 ML IV SCH (13:08)
[2019-02-28] MEDS: GENTAMICIN 120 MG in SODIUM CHLORIDE 0.9% 100 ML IVPB SCH (16:08)
--- NOTE | 2019-02-28 16:55 | P.PN ---
Subjective I have discussed the case with cardiology team, they recommended to hold aspirin and Plavix currently as patient is actively bleeding and he needed more than 2 units of blood transfusion. This puts him at risk heart attack however in view of his active bleeding his anti-platelets therapy has to be stopped. subjective pt is stable , his back pain is about 5-6 , it is stable, pt has hematuria which is resolving throught hte peralta catheter. i discussed the case with the instructional systems specialist team today, still recommending holding asa and plavix given his sever recent bleeding and need more than one unit of blood transfusion . pt was cleared by urology team for discharge. 02/28/2019 Patient looks clinically stable, he was lying bed comfortable and also seen moving around with a walker . He says that his back pain is 7/10 in severity today however he feels comfortable about it and he is not in distress. His vitals looks his stable. Hemoglobin is stable at 7.7. His hematuria has cleared off. Peralta catheter remains in place. A Long discussion with the patient and to gather regarding the plan. They risks of holding aspirin and Plavix are explained to them including the risk of recurrent [place] and sudden . They verbalized understanding and acceptance. They also understand the importance of follow-up with cardiology for restarting these medication. Also they agree with the appointment with urology. Review of systems CONSTITUTIONAL: No fever, no malaise, no fatigue. HEENT: No recent visual problems or hearing problems. Denied any sore throat. CARDIOVASCULAR: No orthopnea, PND, no palpitations, no syncope. PULMONARY: No shortness of breath, no cough, no hemoptysis. GASTROINTESTINAL: No diarrhea, no nausea, no vomiting, no abdominal pain. Normoactive bowel sounds. NEUROLOGICAL: No headaches, no weakness, no numbness. HEMATOLOGICAL: Denies any bleeding or petechiae. GENITOURINARY: Denies any burning micturition, frequency, or urgency. MUSCULOSKELETAL/RHEUMATOLOGICAL: Denies any joint pain, swelling, or any muscle pain. ENDOCRINE: Denies any polyuria or polydipsia. Medication: Albuterol, Tylenol, ampicillin, Lipitor, Lasix, Neurontin, gentamicin, [place], Claritin, nitroglycerin, Zofran, Senokot, simethicone, Flomax, Ultram. Objective - Vital Signs Vital signs: Vital Signs Temp 97.9 F 02/28/19 16:00 Pulse 63 02/28/19 16:00 Resp 18 02/28/19 16:00 BP 133/75 02/28/19 16:00 Pulse Ox 97 02/28/19 16:00 Intake & Output 02/27/19 02/28/19 02/28/19 18:59 06:59 18:59 Intake Total 480 Output Total 3100 1650 1999 Balance -2619 Weight 90.2 kg Intake: Oral 480 Output: Urine 3100 1650 1999 Other: Voiding Method Indwelling Catheter Indwelling Catheter Indwelling Catheter - Exam GENERAL: The patient is alert and oriented x3, not in any acute distress. Well developed, well nourished. HEENT: Pupils are round and equally reacting to light. EOMI. No scleral icterus. No conjunctival pallor. Normocephalic, atraumatic. No pharyngeal erythema. No thyromegaly. CARDIOVASCULAR: S1 and S2 present. No murmurs, rubs, or gallops. PULMONARY: Chest is clear to auscultation, no wheezing or crackles. -ABDOMEN: Soft, nontender, nondistended, normoactive bowel sounds. No palpable organomegaly. Peralta catheter in place, with little dark urine in the back MUSCULOSKELETAL: No joint swelling or deformity. EXTREMITIES: No cyanosis, clubbing, or pedal edema. NEUROLOGICAL: Gross neurological examination did not reveal any focal deficits. SKIN: No rashes. 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 Patient is presently on ampicillin -Hematuria because of which heparin was discontinued -Possibly infected renal calculus. Microorganism is enterococcus. Continue with antibiotic -Recent history of Possible non-ST elevation myocardial infarction: Patient had a recent stent because of which we cannot hold a dual antiplatelet therapy for to long -Chronic urinary retention: Patient will be resumed on Flomax, patient may need a Peralta catheter. -History of Coronary Artery disease -History of DVT in the past presently not on any anticoagulation as an outpatient -Hyperlipidemia -Benign prostatic hypertrophy
[2019-02-28] MEDS: HYDROcodone/APAP 5-325MG 1 EACH TAB PO PRN (19:01)
[2019-02-28] MEDS: ATORVASTATIN 80 MG TAB PO SCH (23:53)
[2019-03-01] MEDS: AMPICILLIN 2,000 MG in SODIUM CHLORIDE 0.9% 100 ML IVPB SCH ×6 (00:15→22:34)
[2019-03-01] MEDS: IPRATROPIUM-ALBUTEROL 3 ML NEB INHALATION SCH ×6 (03:24→23:40)
[2019-03-01 07:21] LABS: Calcium 8.1 mg/dL (8.4-10.2); Potassium 4.3 mmol/L (3.5-5.1)
[2019-03-01 08:22] LABS: Anisocytosis Slight; Basophils % (A) 0 %; Eosinophils # (A) 0.5 k/uL (0-0.7); Eosinophils % (A) 8 %; HCT 24.6 % (39.0-53.0); HGB 7.7 gm/dL (13.0-17.5); Hypochromasia Slight; Lymphocytes # (A) 1.3 k/uL (1.0-4.8); Lymphocytes % (A) 20 %; MCH 27.8 pg (25.0-35.0); MCHC 31.2 g/dL (31.0-37.0); Monocytes # (A) 0.5 k/uL (0-1.0); Monocytes % (A) 8 %; Neutrophils # (A) 4.1 k/uL (1.3-7.7); Neutrophils % (A) 62 %; Platelet Count 273 k/uL (150-450); RBC 2.76 m/uL (4.30-5.90); RDW 16.4 % (11.5-15.5); WBC 6.6 k/uL (3.8-10.6)
[2019-03-01] MEDS: SYMBICORT 160-4.5 MCG INHALER INHALATION SCH ×3 (08:22→19:17)
[2019-03-01] MEDS: FUROSEMIDE 40 MG TAB PO SCH (09:16)
[2019-03-01] MEDS: TAMSULOSIN 0.4 MG CAP.ER.24H PO SCH ×2 (09:16→22:35)
[2019-03-01] MEDS: SIMETHICONE 80 MG CHEWABLE PO SCH ×3 (09:16→22:35)
[2019-03-01] MEDS: SENNOSIDES-DOCUSATE SODIUM 1 EACH TAB PO SCH (09:16)
[2019-03-01] MEDS: GABAPENTIN 300 MG CAP PO SCH ×3 (09:16→22:35)
[2019-03-01] MEDS: HYDROcodone/APAP 5-325MG 1 EACH TAB PO PRN (10:17)
[2019-03-01] MEDS: GENTAMICIN 120 MG in SODIUM CHLORIDE 0.9% 100 ML IVPB SCH (10:21)
[2019-03-01 10:36] VITALS: BMI 30.2
--- NOTE | 2019-03-01 12:38 | CT ---
EXAMINATION TYPE: CT abdomen pelvis wo con DATE OF EXAM: 03/01/2019 COMPARISON: CT 09/01/2018 HISTORY: Right flank pain CT DLP: 768.3 mGycm Automated exposure control for dose reduction was used. TECHNIQUE: Helical acquisition of images from the lung bases through the pelvis. FINDINGS: Lack of contrast could compromise sensitivity. There are coronary artery calcifications pre sent. Suspect a hiatal hernia. Small umbilical hernia contains fat. Suspect postop changes to the rig ht groin. LUNG BASES: Possible chronic pleural reaction the left lung base, appearing calcifications are noted, there is likely associated atelectatic change or scarring AORTA: No significant abnormality is appreciated. LIVER/GB: Extensive cystic changes again noted within the liver, gallbladder is unremarkable. PANCREAS: No significant abnormality is seen. SPLEEN: No significant abnormality is seen. ADRENALS: No significant abnormality is seen. KIDNEYS: 3 punctate calcifications are present within the left kidney, there is no hydronephrosis. Right kidney shows a cystic focus at the midpole measuring approximately 2.2 cm. No ureteral calcific ation. Retroaortic left renal vein is noted incidentally REPRODUCTIVE ORGANS: Prostate is markedly enlarged. Hair catheter is in place. URINARY BLADDER: Bladder wall thickening could be due to chronic bladder outlet obstruction, small a mount of air within the urinary bladder likely due to patient's instrumentation. Calcifications are p resent in the posterior wall of the bladder, difficult to exclude free bladder stones. BOWEL: Some diverticular changes associated with the colon is present. FREE AIR: No Free Air is visible. ASCITES: None visible. PELVIC ADENOPATHY: None visualized. RETROPERITONEAL ADENOPATHY: No Retroperitoneal Adenopathy visible. OSSEOUS STRUCTURES: Multilevel facet arthropathy, degenerative disc change, there is a spinal curvat ure present. Suspect spinal stenosis at the lower lumbar spine. IMPRESSION: NONOBSTRUCTIVE NEPHROLITHIASIS. PROBABLE CHRONIC BLADDER OUTLET OBSTRUCTION WITH PROSTATIC ENLARGEMEN T, ABNORMAL THICKENING OF THE URINARY BLADDER WALL MAY BE DUE TO MUSCULAR HYPERTROPHY, DIFFICULT TO E XCLUDE UNDERLYING MASS. BLADDER CALCIFICATIONS DESCRIBED. NONCONTRAST EXAM. DIVERTICULOSIS. Additi onal findings above, spinal stenosis, see dictated report CT scan 09/01/2018
[2019-03-01] MEDS: MORPHINE SULFATE 4 MG/ML SYRINGE IVP PRN (13:53)
--- NOTE | 2019-03-01 16:57 | PN ---
PROGRESS NOTE DATE OF SERVICE: 03/01/2019. REASON FOR FOLLOWUP: 1. Enterococcus urinary tract infection. 2. T1-12 diskitis. INTERVAL HISTORY: The patient is currently afebrile. Patient complaining of pain in the right upper quadrant area. The patient denies having any chest pain or shortness of breath or cough. The urine currently with no evidence of any hematuria. No nausea, no vomiting, no diarrhea. PHYSICAL EXAMINATION: Blood pressure 112/57 with a pulse of 56, temperature 98.1. He is 95% on room air. General description is an elderly male lying in bed in no distress. Respiratory system: Unlabored breathing. Clear to auscultation anteriorly. Heart S1, S2. Regular rate and rhythm. ABDOMEN: Soft, no tenderness. LABS: Hemoglobin is 7.7, white count 6.6. BUN of 23, creatinine 0.96. DIAGNOSTIC IMPRESSION AND PLAN: 1. Patient with Enterococcus urinary tract infection adequately treated. 2. The patient T11 diskitis for which the patient will continue on the ampicillin and gentamicin to be discontinued on discharge. Continue ampicillin 2 g q.6h for total of 6 weeks with close outpatient followup. Plan of care discussed with the nurse practitioner for the primary team. MMODL / IJN: [id number] /
--- NOTE | 2019-03-01 18:26 | P.PN ---
Subjective I have discussed the case with cardiology team, they recommended to hold aspirin and Plavix currently as patient is actively bleeding and he needed more than 2 units of blood transfusion. This puts him at risk heart attack however in view of his active bleeding his anti-platelets therapy has to be stopped. subjective pt is stable , his back pain is about 5-6 , it is stable, pt has hematuria which is resolving throught hte peralta catheter. i discussed the case with the storage worker team today, still recommending holding asa and plavix given his sever recent bleeding and need more than one unit of blood transfusion . pt was cleared by urology team for discharge. 02/28/2019 Patient looks clinically stable, he was lying bed comfortable and also seen moving around with a walker . He says that his back pain is 7/10 in severity today however he feels comfortable about it and he is not in distress. His vitals looks his stable. Hemoglobin is stable at 7.7. His hematuria has cleared off. Peralta catheter remains in place. A Long discussion with the patient and to gather regarding the plan. They risks of holding aspirin and Plavix are explained to them including the risk of recurrent [place] and sudden . They verbalized understanding and acceptance. They also understand the importance of follow-up with cardiology for restarting these medication. Also they agree with the appointment with urology. 03/01/2019 Patient with day was planned to be discharged to his rehab however last night he started having significant abdominal pain mainly in the right and left flank area radiating to the groin, on examination patient has tenderness but no rebound tenderness or guarding. and patient was on the [place] then was in distre ss due to pain. CAT scan of the abdomen without contrast showing right kidney stone, nonobstructing. Pain management has provided. Urology team have been contacted by staff. After pain control patient was able to eat and he has regular bowel movements as per staff Review of systems CONSTITUTIONAL: No fever, no malaise, no fatigue. HEENT: No recent visual problems or hearing problems. Denied any sore throat. CARDIOVASCULAR: No orthopnea, PND, no palpitations, no syncope. PULMONARY: No shortness of breath, no cough, no hemoptysis. GASTROINTESTINAL: No diarrhea, no nausea, no vomiting, no abdominal pain. Normoactive bowel sounds. NEUROLOGICAL: No headaches, no weakness, no numbness. HEMATOLOGICAL: Denies any bleeding or petechiae. MUSCULOSKELETAL/RHEUMATOLOGICAL: Denies any joint pain, swelling, or any muscle pain. ENDOCRINE: Denies any polyuria or polydipsia. Medication: Albuterol, Tylenol, ampicillin, Lipitor, Lasix, Neurontin, gentamicin, [place], Claritin, nitroglycerin, Zofran, Senokot, simethicone, Flomax, Ultram. Objective - Vital Signs Vital signs: Vital Signs Temp 98.1 F 03/01/19 15:37 Pulse 56 L 03/01/19 15:37 Resp 16 03/01/19 15:37 BP 112/57 03/01/19 15:37 Pulse Ox 95 03/01/19 15:37 Intake & Output 02/28/19 03/01/19 03/01/19 18:59 06:59 18:59 Intake Total 118 880 Output Total 1999 1600 1000 Balance -1882 -1600 -120 Weight 90.2 kg 90.2 kg Intake: IV 420 0.9 @ 20 mL 320 Ampicillin 2,000 mg In 100 Sodium Chloride 0.9% 100 ml @ 200 mls/hr IVPB Q4HR [facility] Rx#:[id number] Intake, IV Titration 100 Amount Gentamicin 120 mg In 100 Sodium Chloride 0.9% 100 ml @ 103 mls/hr IVPB Q18H [facility] Rx#:[id number] Oral 118 360 Output: Urine 1999 1600 1000 Other: Voiding Method Indwelling Catheter Indwelling Catheter Indwelling Catheter # Voids 0 - Exam GENERAL: The patient is alert and oriented x3, not in any acute distress. Well developed, well nourished. HEENT: Pupils are round and equally reacting to light. EOMI. No scleral icterus. No conjunctival pallor. Normocephalic, atraumatic. No pharyngeal erythema. No thyromegaly. CARDIOVASCULAR: S1 and S2 present. No murmurs, rubs, or gallops. PULMONARY: Chest is clear to auscultation, no wheezing or crackles. -ABDOMEN: Soft, right flank pain and tenderness, no rebound tenderness. nondistended, normoactive bowel sounds. No palpable organomegaly. Peralta catheter in place, with little dark urine in the back MUSCULOSKELETAL: No joint swelling or deformity. EXTREMITIES: No cyanosis, clubbing, or pedal edema. NEUROLOGICAL: Gross neurological examination did not reveal any focal deficits. SKIN: No rashes. 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 Patient is presently on ampicillin -Hematuria because of which heparin was discontinued -Possibly infected renal calculus. Microorganism is enterococcus. Continue with antibiotic -Recent history of Possible non-ST elevation myocardial infarction: Patient had a recent stent because of which we cannot hold a dual antiplatelet therapy for to long -Chronic urinary retention: Patient will be resumed on Flomax, patient may need a Peralta catheter. -History of Coronary Artery disease -History of DVT in the past presently not on any anticoagulation as an outpatient -Hyperlipidemia -Benign prostatic hypertrophy
[2019-03-01] MEDS: ATORVASTATIN 80 MG TAB PO SCH (22:35)
[2019-03-02] MEDS: SIMETHICONE 80 MG CHEWABLE PO SCH ×5 (00:30→22:20)
[2019-03-02] MEDS: SODIUM CHLORIDE 0.9% 1,000 ML IV SCH ×2 (00:31→17:45)
[2019-03-02] MEDS: AMPICILLIN 2,000 MG in SODIUM CHLORIDE 0.9% 100 ML IVPB SCH ×6 (02:19→19:50)
[2019-03-02] MEDS: IPRATROPIUM-ALBUTEROL 3 ML NEB INHALATION SCH ×5 (03:46→21:40)
[2019-03-02] MEDS: MORPHINE SULFATE 4 MG/ML SYRINGE IVP PRN (03:51)
[2019-03-02] MEDS: GENTAMICIN 120 MG in SODIUM CHLORIDE 0.9% 100 ML IVPB SCH ×2 (04:12→22:20)
[2019-03-02 06:09] LABS: Anisocytosis Slight; Basophils % (A) 1 %; Eosinophils # (A) 0.5 k/uL (0-0.7); Eosinophils % (A) 7 %; HCT 23.5 % (39.0-53.0); HGB 7.7 gm/dL (13.0-17.5); Hypochromasia Slight; Lymphocytes # (A) 1.1 k/uL (1.0-4.8); Lymphocytes % (A) 16 %; MCH 29.2 pg (25.0-35.0); MCHC 32.8 g/dL (31.0-37.0); MCV 88.9 fL (80.0-100.0); Mean Platelet Volume 7.4; Monocytes # (A) 0.5 k/uL (0-1.0); Monocytes % (A) 7 %; Neutrophils # (A) 4.9 k/uL (1.3-7.7); Neutrophils % (A) 69 %; Platelet Count 290 k/uL (150-450); Poikilocytosis Slight; RBC 2.64 m/uL (4.30-5.90); RDW 16.1 % (11.5-15.5); WBC 7.1 k/uL (3.8-10.6)
[2019-03-02 06:17] LABS: Calcium 8.2 mg/dL (8.4-10.2); Potassium 4.5 mmol/L (3.5-5.1)
[2019-03-02] MEDS: SYMBICORT 160-4.5 MCG INHALER INHALATION SCH ×2 (06:54→21:40)
[2019-03-02] MEDS: FUROSEMIDE 40 MG TAB PO SCH (09:47)
[2019-03-02] MEDS: TAMSULOSIN 0.4 MG CAP.ER.24H PO SCH ×2 (09:47→22:21)
[2019-03-02] MEDS: GABAPENTIN 300 MG CAP PO SCH ×3 (09:47→22:20)
[2019-03-02] MEDS: SENNOSIDES-DOCUSATE SODIUM 1 EACH TAB PO SCH (09:47)
[2019-03-02] MEDS: HYDROcodone/APAP 10-325MG 1 EACH TAB PO PRN ×2 (09:52→14:51)
--- NOTE | 2019-03-02 11:20 | XR ---
AP pelvis HISTORY: Right flank pain Frontal view of the pelvis submitted and correlated to prior CT abdomen pelvis 03/01/2019 There is degenerative disc change noted in the visualized spine, there is osteoarthritic change withi n the hips. The calcifications seen on CT within the bladder wall are not seen definitively. There ar e vascular calcifications present. Bone mineralization is maintained. Hair catheter has been removed . IMPRESSION: Nonspecific findings.
[2019-03-02] MEDS: CLOPIDOGREL 75 MG TAB PO SCH (11:33)
[2019-03-02] MEDS: ASPIRIN 81 MG PO SCH (11:33)
--- NOTE | 2019-03-02 12:55 | XR ---
Lumbar spine HISTORY: Low back pain, right flank pain 3 views of the lumbar spine Correlation to prior exam 08/18/2018 Exam shows a similar appearance. There is a mild dextroscoliosis centered at the mid lumbar spine. Ameena mbar vertebral bodies show preserved height and bone mineralization. There is multilevel spondylosis. Multilevel facet arthropathy changes are present, alignment is stable, minimal anterolisthesis grade 1 L4-5, retrolisthesis grade 1 L3-4. Loss of disc height is present at the intervertebral levels, mu ltilevel vacuum phenomenon at the intervertebral levels is noted. There may be some loss of height of superior endplate of T12, irregularity is thought to persist T11-12. Vascular calcifications are not ed incidentally. IMPRESSION: Degenerative disc disease and facet arthropathy, there may be underlying spinal stenosis, endplate irregularity at T11-T12 compatible with patient's history of discitis.
[2019-03-02] MEDS: ATORVASTATIN 80 MG TAB PO SCH (22:19)
--- NOTE | 2019-03-02 23:40 | PN ---
PROGRESS NOTE DATE OF SERVICE: 03/02/2019. REASON FOR FOLLOWUP: 1. Enterococcus urinary tract infection. 2. Cervical spine diskitis. INTERVAL HISTORY: The patient is currently afebrile, has been breathing comfortably. He has been complaining of pain in the abdominal area. No nausea, no vomiting. No diarrhea and no further hematuria. PHYSICAL EXAMINATION: Blood pressure 101/56, pulse of 82, temperature 97.9. He is 97% on room air. General description is an elderly male lying in bed in no distress. HEENT: Shows pallor. No scleral icterus. Oral mucosal membranes are dry. LUNGS: Unlabored breathing. Clear to auscultation anteriorly. Heart S1, S2. Regular rate and rhythm. Abdomen soft, no tenderness. Extremities: No edema of the feet. LABS: Hemoglobin 7.7, white count 7.1. BUN of 21, creatinine is 1.15. Blood culture has been negative. Abdomen and pelvis CT, nonobstructive nephrolithiasis, probably chronic bladder outlet obstruction, abnormal thickening of the bladder wall and diverticulosis. Also have a CT of the lumbar spine degenerative disc disease, spinal stenosis. DIAGNOSTIC IMPRESSION AND PLAN: Patient with T11-12 diskitis, possible related to Enterococcus faecalis as the patient responded to ampicillin and with resolution of fever and did have improvement in his CRP. The patient continue with Ampicillin 2 grams q.6 hours for another 4-5 weeks to finish a 6 week course of therapy. Gentamicin to be discontinued at discharge to decrease risk of nephrotoxicity. Family was present at bedside. Their questions and concerns were answered. MMODL / IJN: [id number] /
--- NOTE | 2019-03-02 23:46 | P.PN ---
Subjective I have discussed the case with cardiology team, they recommended to hold aspirin and Plavix currently as patient is actively bleeding and he needed more than 2 units of blood transfusion. This puts him at risk heart attack however in view of his active bleeding his anti-platelets therapy has to be stopped. subjective pt is stable , his back pain is about 5-6 , it is stable, pt has hematuria which is resolving throught hte peralta catheter. i discussed the case with the chemical supervisor team today, still recommending holding asa and plavix given his sever recent bleeding and need more than one unit of blood transfusion . pt was cleared by urology team for discharge. 02/28/2019 Patient looks clinically stable, he was lying bed comfortable and also seen moving around with a walker . He says that his back pain is 7/10 in severity today however he feels comfortable about it and he is not in distress. His vitals looks his stable. Hemoglobin is stable at 7.7. His hematuria has cleared off. Peralta catheter remains in place. A Long discussion with the patient and to gather regarding the plan. They risks of holding aspirin and Plavix are explained to them including the risk of recurrent TX and sudden . They verbalized understanding and acceptance. They also understand the importance of follow-up with cardiology for restarting these medication. Also they agree with the appointment with urology. 03/01/2019 Patient with day was planned to be discharged to his rehab however last night he started having significant abdominal pain mainly in the right and left flank area radiating to the groin, on examination patient has tenderness but no rebound tenderness or guarding. and patient was on the [place] then was in distre ss due to pain. CAT scan of the abdomen without contrast showing right kidney stone, nonobstructing. Pain management has provided. Urology team have been contacted by staff. After pain control patient was able to eat and he has regular bowel movements as per staff 03/02/2019 pt right side pain is better controlled with pain medicaition , pt has been evaluated by dr. kirkpatrick and i discussed the case withe him , he confirmed to me pt can restart asa and plavix. whoever he believe his pain is not related to urological system. pt refers to the back more when he points to his pain. lumbar xray showed degnerative disc disease and facet arthropathy , there may be underlying spinal steosis, at T11-T12 compatible with h/o discitis . i discussed with staff and bed side RN to call orthopedic team for f/u Review of systems CONSTITUTIONAL: No fever, no malaise, no fatigue. HEENT: No recent visual problems or hearing problems. Denied any sore throat. CARDIOVASCULAR: No orthopnea, PND, no palpitations, no syncope. PULMONARY: No shortness of breath, no cough, no hemoptysis. GASTROINTESTINAL: No diarrhea, no nausea, no vomiting, no abdominal pain. Normo active bowel sounds. NEUROLOGICAL: No headaches, no weakness, no numbness. HEMATOLOGICAL: Denies any bleeding or petechiae. MUSCULOSKELETAL/RHEUMATOLOGICAL: Denies any joint pain, swelling, or any muscle pain. ENDOCRINE: Denies any polyuria or polydipsia. Medication: Albuterol, Tylenol, ampicillin, Lipitor, Lasix, Neurontin, gentamicin, [place], Claritin, nitroglycerin, Zofran, Senokot, simethicone, Flomax, Ultram. Objective - Vital Signs Vital signs: Vital Signs Temp 98.2 F 03/02/19 23:28 Pulse 58 L 03/02/19 23:28 Resp 16 03/02/19 23:28 BP 112/60 03/02/19 23:28 Pulse Ox 95 03/02/19 23:28 Intake & Output 03/02/19 03/02/19 03/03/19 06:59 18:59 06:59 Intake Total 480 Output Total 1800 100 750 Balance -1800 380 -750 Weight 93.9 kg Intake: Oral 480 Output: Urine 1800 100 750 Other: Voiding Method Indwelling Catheter Indwelling Catheter Indwelling Catheter # Voids 600 - Exam GENERAL: The patient is alert and oriented x3, not in any acute distress. Well developed, well nourished. HEENT: Pupils are round and equally reacting to light. EOMI. No scleral icterus. No conjunctival pallor. Normocephalic, atraumatic. No pharyngeal erythema. No thyromegaly. CARDIOVASCULAR: S1 and S2 present. No murmurs, rubs, or gallops. PULMONARY: Chest is clear to auscultation, no wheezing or crackles. -ABDOMEN: Soft, right flank pain and tenderness, no rebound tenderness. nondistended, normoactive bowel sounds. No palpable organomegaly. Peralta catheter in place, with little dark urine in the back MUSCULOSKELETAL: No joint swelling or deformity. EXTREMITIES: No cyanosis, clubbing, or pedal edema. NEUROLOGICAL: Gross neurological examination did not reveal any focal deficits. SKIN: No rashes. 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 Patient is presently on ampicillin -Hematuria because of which heparin was discontinued -Possibly infected renal calculus. Microorganism is enterococcus. Continue with antibiotic -Recent history of Possible non-ST elevation myocardial infarction: Patient had a recent stent because of which we cannot hold a dual antiplatelet therapy for to long -Chronic urinary retention: Patient will be resumed on Flomax, patient may need a Peralta catheter. -History of Coronary Artery disease -History of DVT in the past presently not on any anticoagulation as an outpatient -Hyperlipidemia -Benign prostatic hypertrophy
[2019-03-03] MEDS: IPRATROPIUM-ALBUTEROL 3 ML NEB INHALATION SCH ×4 (00:01→11:57)
[2019-03-03] MEDS: AMPICILLIN 2,000 MG in SODIUM CHLORIDE 0.9% 100 ML IVPB SCH ×4 (00:27→11:24)
[2019-03-03 07:19] LABS: Basophils # (A) 0.1 k/uL (0-0.2); Basophils % (A) 1 %; Eosinophils # (A) 0.4 k/uL (0-0.7); Eosinophils % (A) 7 %; HCT 24.6 % (39.0-53.0); Hypochromasia Moderate; Lymphocytes # (A) 1.1 k/uL (1.0-4.8); Lymphocytes % (A) 19 %; MCH 29.1 pg (25.0-35.0); MCHC 32.6 g/dL (31.0-37.0); MCV 89.2 fL (80.0-100.0); Mean Platelet Volume 7.4; Monocytes # (A) 0.4 k/uL (0-1.0); Monocytes % (A) 7 %; Neutrophils # (A) 3.7 k/uL (1.3-7.7); Neutrophils % (A) 65 %; Platelet Count 312 k/uL (150-450); Poikilocytosis Slight; RBC 2.76 m/uL (4.30-5.90); RDW 15.9 % (11.5-15.5); WBC 5.6 k/uL (3.8-10.6)
[2019-03-03 07:34] LABS: Calcium 8.6 mg/dL (8.4-10.2); Potassium 4.6 mmol/L (3.5-5.1)
[2019-03-03] MEDS: SYMBICORT 160-4.5 MCG INHALER INHALATION SCH (08:28)
[2019-03-03] MEDS: CLOPIDOGREL 75 MG TAB PO SCH (08:52)
[2019-03-03] MEDS: GABAPENTIN 300 MG CAP PO SCH (08:52)
[2019-03-03] MEDS: FUROSEMIDE 40 MG TAB PO SCH (08:52)
[2019-03-03] MEDS: SENNOSIDES-DOCUSATE SODIUM 1 EACH TAB PO SCH (08:52)
[2019-03-03] MEDS: SIMETHICONE 80 MG CHEWABLE PO SCH ×2 (08:52→12:39)
[2019-03-03] MEDS: TAMSULOSIN 0.4 MG CAP.ER.24H PO SCH (08:52)
[2019-03-03] MEDS: ASPIRIN 81 MG PO SCH (08:52)
[2019-03-03 10:49] VITALS: RESP 18
[2019-03-03] MEDS: HYDROcodone/APAP 10-325MG 1 EACH TAB PO PRN (12:42)
--- NOTE | 2019-03-03 13:04 | P.DS ---
Providers Date of admission: 02/16/19 10:55 Attending physician: Melissa Dubon Consults: 02/16/19 10:55 Consult Physician Urgent Consulting Provider: Aldo Beckman Consult Reason/Comments: cp Do you want consulting provider notified?: Yes 02/16/19 15:57 Consult Physician Routine Consulting Provider: Kuldeep Cooper Consult Reason/Comments: diskitis Do you want consulting provider notified?: Yes 02/16/19 16:54 Consult Physician Urgent Consulting Provider: Garcia Conde Consult Reason/Comments: copd exacerbation Do you want consulting provider notified?: Yes 02/19/19 14:30 Consult Physician Routine Consulting Provider: Cam Ryan Consult Reason/Comments: Hematuria Do you want consulting provider notified?: Yes Primary care physician: Wanda Jameson [facility] Course: Final diagnoses: -Sepsis: Secondary to enterococcus urinary tract infection and discitis of T11- T12 thoracic vertebrae -discitis of T11-T12 thoracic vertebrae, on ampicillin X4 more weeks. -Hematuria, with urinary retention. Hair catheter is in place -Possibly infected renal calculus. Microorganism is enterococcus. -Recent history of Possible non-ST elevation myocardial infarction, recent stents. Discharge on aspirin and Plavix -Chronic urinary retention: Patient will be resumed on Flomax, Hair catheter management as per urology recommendations, . -Coronary Artery disease -History of DVT in the past presently not on any anticoagulation as an outpatient -Hyperlipidemia -Benign prostatic hypertrophy Hospital course: Interval history:70-year-old pleasant gentleman was admitted secondary to sepsis from discitis as well as urinary tract infection both of which probably from enterococcus. Patient started having hematuria again today IV heparin is being discontinued and patient will be switched 81 mg of aspirin and Plavix will be continued as well. Patient did have mildly elevated troponins, no further intervention from cardiology perspective is being planned and patient had MRI of the spine which did show significant discitis with T11-T12 endplate erosions mildly narrowed spinal canal, no epidural abscess was evident on MRI. He continues to have significant back pain. Patient has been evaluated by many consultants including cardiology, orthopedic surgery, urology and infectious disease specialist. Set up to receive ampicillin and gentamicin, for 6 weeks. Gentamicin was discontinued on discharge to decrease the risk of nephrotoxicity, while ampicillin need to be continued for 4 more weeks. Aspirin was held due to patient's significant hematuria and needed multiple blood transfusion. However hematuria was cleared for more than 48 hours and neurologist recommended to resume his aspirin and Plavix yesterday. Repeat hemoglobin today is a stable at 7.7 and 8.0 respectively. Patient was also also stable. Patient started to have right side back pain radiating to the right flank and to the groin and abdomen. Neurologist evaluated the patient and did not believe that this pain coming from renal system, CAT scan of the abdomen was done, patient having normal bowel movement and hysterectomy diet well and abdominal exam is benign. Repeat x-ray of the lumbar spine showed (degenerative disc disease and facet arthropathy, there may be underlying spinal stenosis, endplate irregularity at T11 to T12 compatible with patient history of discitis.) Orthopedic team has been contacted, Dr. Buckner recommended since patient is ambulating well he can follow-up in the office. Appointment has been set up with the orthopedic surgeon on 03/19/2019 and patient and made aware of it. Patient today was walking in the hallway using her walker as usual. Patient denies weakness and or abnormal sensation in the lower extremities. Hair catheter is in place. No bowel difficulties or incontinence. Patient was cleared for discharge by all consultants including cardiology, nephrology, infectious disease and orthopedic Problems and management plan was discussed with the patient and at bedside upon his request and they verbalized understanding and acceptance Patient was found stable and can be discharged to [facility] for rehab, and guarded prognosis. However he needs follow-up as an outpatient. Patient agrees and underwent with the appointments made for him Gen: patient is a AAOx3, no distress CVS: S1-S2, RRR, no murmur Lungs: B/L CTA, no wheezing Abdomen: soft, no distention, no tenderness, positive bowel sounds. Hair catheter is in place, clear urine with no overt Extremity: no leg edema or induration Back: Right paraspinal tenderness, pain radiating to the right flank Time spent more than 35 minutes Patient Condition at Discharge: Stable Plan - Discharge Summary Discharge Rx Participant: No New Discharge Prescriptions: New Ipratropium-Albuterol Nebulize [Duoneb 0.5 mg-3 mg/3 ml Soln] 3 ml INHALATION RT-Q4H ampul.neb Furosemide [Lasix] 40 mg PO DAILY tab Simethicone Chew [Mylicon Chew] 80 mg PO QID chew Sennosides-Docusate Sodium [Senokot-S] 1 each PO DAILY tab Budesonide-Formot 160-4.5 Mcg [Symbicort 160-4.5 Mcg Inhaler] 2 puff INHALATION RT-BID puff HYDROcodone/APAP 5-325MG [[place] 5-325] 2 each PO Q4HR PRN #20 tab PRN Reason: Severe Pain Acetaminophen Tab [Tylenol] 650 mg PO Q4HR PRN tab PRN Reason: Fever and/ or Mild Pain Continue Aspirin 81 mg PO DAILY #30 chew Atorvastatin [Lipitor] 80 mg PO HS #30 tab Clopidogrel [Plavix] 75 mg PO DAILY #30 tab Nitroglycerin Sl Tabs [Nitrostat] 0.4 mg SUBLINGUAL Q5M PRN #30 tab PRN Reason: Chest Pain Loratadine [Claritin] 10 mg PO DAILY PRN PRN Reason: Allergy Symptoms Gabapentin [Neurontin] 300 mg PO TID Tamsulosin [Flomax] 0.4 mg PO BID Discharge Medication List Aspirin 81 mg PO DAILY #30 chew 02/24/18 [Rx] Atorvastatin [Lipitor] 80 mg PO HS #30 tab 02/24/18 [Rx] Clopidogrel [Plavix] 75 mg PO DAILY #30 tab 02/24/18 [Rx] Nitroglycerin Sl Tabs [Nitrostat] 0.4 mg SUBLINGUAL Q5M PRN #30 tab 02/24/18 [Rx] Gabapentin [Neurontin] 300 mg PO TID 08/24/18 [History] Loratadine [Claritin] 10 mg PO DAILY PRN 08/24/18 [History] Tamsulosin [Flomax] 0.4 mg PO BID 09/09/18 [History] Budesonide-Formot 160-4.5 Mcg [Symbicort 160-4.5 Mcg Inhaler] 2 puff INHALATION RT-BID puff 02/23/19 [Rx] Furosemide [Lasix] 40 mg PO DAILY tab 02/23/19 [Rx] HYDROcodone/APAP 5-325MG [[place] 5-325] 2 each PO Q4HR PRN #20 tab 02/23/19 [Rx] Ipratropium-Albuterol Nebulize [Duoneb 0.5 mg-3 mg/3 ml Soln] 3 ml INHALATION RT-Q4H ampul.neb 02/23/19 [Rx] Sennosides-Docusate Sodium [Senokot-S] 1 each PO DAILY tab 02/23/19 [Rx] Simethicone Chew [Mylicon Chew] 80 mg PO QID chew 02/23/19 [Rx] Acetaminophen Tab [Tylenol] 650 mg PO Q4HR PRN tab 03/03/19 [Rx] Follow up Appointment(s)/Referral(s): Trino Muñoz MD [Primary Care Provider] - 3 Days () Devante Buckner DO [Doctor of Osteopathic Medicine] - 03/19/19 9:00 am () Kuldeep Cooper MD [STAFF PHYSICIAN] - 03/08/19 10:15 am () Tera Alejo MD [STAFF PHYSICIAN] - 03/04/19 11:15 am Cam Ryan MD [STAFF PHYSICIAN] - 03/08/19 8:20 am () Ambulatory/Diagnostic Orders: Basic Metabolic Panel [LAB.AMB] Location: None Selected C Reactive Protein [LAB.AMB] Location: None Selected Complete Blood Count w/diff [LAB.AMB] Location: None Selected Erythrocyte Sedimentation Rate [LAB.AMB] Location: None Selected Patient Instructions/Handouts: Hair Catheter Placement and Care (DC) Activity/Diet/Wound Care/Special Instructions: [facility] on discharge. D/C antibiotics per Dr. Cooper - Ampicillin 2grams IVPB q6hrs x 6 weeks; Weekly CMB/BMP/ESR confirm cardiology follow-up appointment prior to discharge Discharge Disposition: TRANSFER TO SNF/ECF
[2019-03-03 13:24] VITALS: BP 136/67; PULSE 59; TEMP 98.7
--- NOTE | 2019-03-03 14:56 | PN ---
PROGRESS NOTE DATE OF SERVICE: 03/03/2019 REASON FOR FOLLOWUP: 1. Enterococcus urinary tact infection,complicated. 2. T11-12 diskitis. INTERVAL HISTORY: The patient is currently afebrile. The patient is breathing comfortably. Denies having any chest pain. No shortness of breath or cough. No abdominal pain. No nausea, vomiting, or any diarrhea. PHYSICAL EXAMINATION: Blood pressure is 92/52 with pulse of 60, temperature is 91. He is 97% on room air. General description is an elderly male lying in bed in no distress. RESPIRATORY SYSTEM: Unlabored breathing, clear to auscultation anteriorly. HEART: S1, S2. Regular rate and rhythm. ABDOMEN: Soft, no tenderness. LABS: Hemoglobin is 8 with white count 5.3, BUN of 22, creatinine 1.11. DIAGNOSTIC IMPRESSION AND PLAN: 1. Patient with Enterococcus faecalis negative urinary tract infection, currently on ampicillin. 2. Patient with T11-12 diskitis, likely same pathogen as the patient's fever, resolved. Did have a normal drain in the CRP. He will continue on ampicillin q.6 for another 4 to 5 weeks. Closely monitor CBC, BMP, SED rate. Follow up in the office in 1 week. Continue supportive care. MMODL / IJN: [id number] /
== END 2019-03-03 15:26 | DRG 853 ==
LOC: EC 06:51 → 3SCARD 10:55
PROVIDERS: ADMIT Hospitalist; ATTEND Hospitalist
PROC: 0V508ZZ Destruction of Prostate, Via Natural or Artificial Opening Endoscopic (ICD-10-PCS; principal; 2019-02-16)
PROC: 0T9B8ZZ Drainage of Bladder, Via Natural or Artificial Opening Endoscopic (ICD-10-PCS; 2019-02-16)
PROC: 0TCB8ZZ Extirpation of Matter from Bladder, Via Natural or Artificial Opening Endoscopic (ICD-10-PCS; 2019-02-16)
PROC: 30233N1 Transfusion of Nonautologous Red Blood Cells into Peripheral Vein, Percutaneous Approach (ICD-10-PCS; 2019-02-24)
PROC: 02HV33Z Insertion of Infusion Device into Superior Vena Cava, Percutaneous Approach (ICD-10-PCS; 2019-02-25)
DX: A41.81 Sepsis due to Enterococcus (principal); I21.4 Non-ST elevation (NSTEMI) myocardial infarction; D62 Acute posthemorrhagic anemia; I50.32 Chronic diastolic (congestive) heart failure; J44.1 Chronic obstructive pulmonary disease with (acute) exacerbation; J98.11 Atelectasis; M46.24 Osteomyelitis of vertebra, thoracic region; N39.0 Urinary tract infection, site not specified; G62.9 Polyneuropathy, unspecified; I11.0 Hypertensive heart disease with heart failure; I27.20 Pulmonary hypertension, unspecified; I48.91 Unspecified atrial fibrillation; I08.3 Combined rheumatic disorders of mitral, aortic and tricuspid valves; E78.00 Pure hypercholesterolemia, unspecified; E78.5 Hyperlipidemia, unspecified; F17.200 Nicotine dependence, unspecified, uncomplicated; G89.29 Other chronic pain; I25.10 Atherosclerotic heart disease of native coronary artery without angina pectoris; M46.44 Discitis, unspecified, thoracic region; M51.36 Other intervertebral disc degeneration, lumbar region; N40.1 Benign prostatic hyperplasia with lower urinary tract symptoms; R33.8 Other retention of urine; R10.11 Right upper quadrant pain; N20.0 Calculus of kidney; N21.0 Calculus in bladder; N42.1 Congestion and hemorrhage of prostate; R79.1 Abnormal coagulation profile; N32.3 Diverticulum of bladder; I77.819 Aortic ectasia, unspecified site; Z79.02 Long term (current) use of antithrombotics/antiplatelets; Z79.82 Long term (current) use of aspirin; Z79.899 Other long term (current) drug therapy; Z95.5 Presence of coronary angioplasty implant and graft; Z90.79 Acquired absence of other genital organ(s); Z87.442 Personal history of urinary calculi; Z87.440 Personal history of urinary (tract) infections; Z86.718 Personal history of other venous thrombosis and embolism; Z86.711 Personal history of pulmonary embolism; Z90.49 Acquired absence of other specified parts of digestive tract; Z87.01 Personal history of pneumonia (recurrent); Z82.49 Family history of ischemic heart disease and other diseases of the circulatory system
CPT/HCPCS: 36415; 36573; 71045; 71046; 71275; 72100; 72157; 72170; 74176; 80048; 80053; 80061; 80170; 81001; 82365; 82550; 82553; 83605; 83880; 84484; 85025; 85027; 85379; 85610; 85652; 85730; 86140; 86850; 86900; 86901; 86920; 87040; 87077; 87086; 87186; 87502; 93005; 93306; 94640; 94760; 96374; 96376; 99285

== ENCOUNTER 2019-03-08 20:11 | Emergency (ER) | payer MEDICARE ==
[2019-03-08 20:20] VITALS: TEMP 97.3
[2019-03-08 21:14] LABS: Albumin 3.3 g/dL (3.5-5.0); Calcium 8.7 mg/dL (8.4-10.2); INR 1.2 (<1.2); Partial Thromboplastin Time 23.9 sec (22.0-30.0); Potassium 4.1 mmol/L (3.5-5.1); Prothrombin Time 12.6 sec (9.0-12.0); Total Bilirubin 0.6 mg/dL (0.2-1.3); Total Protein 6.1 g/dL (6.3-8.2)
[2019-03-08 21:37] LABS: Basophils # (A) 0.1 k/uL (0-0.2); Basophils % (A) 1 %; Eosinophils # (A) 0.5 k/uL (0-0.7); Eosinophils % (A) 9 %; HCT 24.1 % (39.0-53.0); HGB 8.2 gm/dL (13.0-17.5); Hypochromasia Slight; Lymphocytes # (A) 1.3 k/uL (1.0-4.8); Lymphocytes % (A) 22 %; MCH 28.8 pg (25.0-35.0); MCHC 33.9 g/dL (31.0-37.0); MCV 85.1 fL (80.0-100.0); Mean Platelet Volume 7.9; Monocytes # (A) 0.4 k/uL (0-1.0); Monocytes % (A) 7 %; Neutrophils # (A) 3.6 k/uL (1.3-7.7); Neutrophils % (A) 59 %; Platelet Count 370 k/uL (150-450); Poikilocytosis Slight; RBC 2.83 m/uL (4.30-5.90); RDW 15.5 % (11.5-15.5); WBC 6.1 k/uL (3.8-10.6)
--- NOTE | 2019-03-08 21:37 | ED ---
Male Urogenital HPI - General Chief complaint: Urogenital Stated complaint: Hematuria Time Seen by Provider: 03/08/19 20:30 Source: patient, RN notes reviewed, old records reviewed Mode of arrival: EMS Limitations: physical limitation - History of Present Illness Initial comments: This Patient is a 70-year-old male presents emergency department today from extended care facility concerns for low hemoglobin. She reportedly had Hair catheter removed by Dr. Zuñiga today. He subsequently developed a secondary urinary retention after his Hair cath was removed. It was re-instilled by nursing care facility at [facility] and [facility]. Patient states he has some blood in his urine. He complains of no pain. Patient reportedly had blood work drawn at [facility] after his catheter was initiated again. They reported a low hemoglobin and were sent the Patient here for possible transfusion. He states he had hemoglobin drawn on Friday today is 8.1. He denies any complaints at this time. He will see Dr. Zuñiga tomorrow. - Related Data Home Medications Medication Instructions Recorded Confirmed Gabapentin [Neurontin] 300 mg PO TID 08/24/18 03/08/19 Loratadine [Claritin] 10 mg PO DAILY PRN 08/24/18 03/08/19 Tamsulosin [Flomax] 0.4 mg PO BID 09/09/18 03/08/19 Ampicillin Sodium 2,000 mg INTRAVENTR Q6H 03/08/19 03/08/19 HYDROcodone/APAP 5-325MG [[place] 2 tab PO Q4HR PRN 03/08/19 03/08/19 5-325] Lactobacillus Acidophilus 1 tab PO TID 03/08/19 03/08/19 [Acidophilus] Sennosides-Docusate Sodium 1 tab PO DAILY 03/08/19 03/08/19 [Senokot-S] Simethicone [Gas-X] 125 mg PO QID 03/08/19 03/08/19 Sodium Chloride 0.9% Irrigatio 10 ml INTRAVENTR Q6H 03/08/19 03/08/19 [Saline 0.9% Irrigation] Previous Rx's Medication Instructions Recorded Aspirin 81 mg PO DAILY #30 chew 02/24/18 Atorvastatin [Lipitor] 80 mg PO HS #30 tab 02/24/18 Clopidogrel [Plavix] 75 mg PO DAILY #30 tab 02/24/18 Nitroglycerin Sl Tabs [Nitrostat] 0.4 mg SUBLINGUAL Q5M PRN #30 tab 02/24/18 Furosemide [Lasix] 40 mg PO DAILY tab 02/23/19 Ipratropium-Albuterol Nebulize 3 ml INHALATION RT-Q4H ampul.neb 02/23/19 [Duoneb 0.5 mg-3 mg/3 ml Soln] Acetaminophen Tab [Tylenol] 650 mg PO Q4HR PRN tab 03/03/19 Allergies Allergy/AdvReac Type Severity Reaction Status Date / Time No Known Allergies Allergy Verified 03/08/19 20:40 Review of Systems ROS Statement: Those systems with pertinent positive or pertinent negative responses have been documented in the HPI. ROS Other: All systems not noted in ROS Statement are negative. Past Medical History Past Medical History: Coronary Artery Disease (CAD), Heart Failure, Deep Vein Thrombosis (DVT), Hyperlipidemia, Pneumonia, Prostate Disorder, Pulmonary Embolus (PE) Additional Past Medical History / Comment(s): R leg DVT, urinary retention, BPH with surgery, UTI with sepsis, bladder stones with surgery, chronic anemia, chronic low back pain, neuropathy R foot, recent sinus problems. History of Any Multi-Drug Resistant Organisms: None Reported Past Surgical History: Appendectomy, Heart Catheterization, Heart Catheterization With Stent, Prostate Surgery Additional Past Surgical History / Comment(s): Bladder stone removal 03/2018, TURVP, colonoscopy, cardiac caths with last one done 01/25/19 treat medically. Past Anesthesia/Blood Transfusion Reactions: No Reported Reaction Date of Last Stent Placement:: February 23, 2018 Past Psychological History: No Psychological Hx Reported Smoking Status: Never smoker - Past Family History Father Family Medical History: No Reported History Additional Family Medical History / Comment(s): Father was healthy and lived to be 95 yrs old. Mother Family Medical History: Hypertension Additional Family Medical History / Comment(s): Mother of a brain tumor at the age of 75yrs. Pt states they never found out if it was cancerous. General Exam - General Exam Comments Initial Comments: Alert and oriented 70-year-old male. No significant distress. Limitations: physical limitation General appearance: alert, in no apparent distress Head exam: Present: atraumatic, normocephalic, normal inspection Eye exam: Present: normal appearance, PERRL, EOMI. Absent: scleral icterus, conjunctival injection, periorbital swelling ENT exam: Present: normal exam, mucous membranes moist Neck exam: Present: normal inspection. Absent: tenderness, meningismus, lymphadenopathy Respiratory exam: Present: normal lung sounds bilaterally. Absent: respiratory distress, wheezes, rales, rhonchi, stridor Cardiovascular Exam: Present: regular rate, normal rhythm, normal heart sounds. Absent: systolic murmur, diastolic murmur, rubs, gallop, clicks GI/Abdominal exam: Present: soft, normal bowel sounds. Absent: distended, ten derness, guarding, rebound, rigid exam: Present: other (Hematuria noted on the leg bag from Hair catheter.). Absent: normal inspection (Blood noted at urethral meatus.), testicular tenderness, urethral discharge Extremities exam: Present: normal inspection, full ROM, normal capillary refill. Absent: tenderness, pedal edema, joint swelling, calf tenderness Back exam: Present: normal inspection Neurological exam: Present: alert, oriented X3, CN II-XII intact Psychiatric exam: Present: normal affect, normal mood Skin exam: Present: warm, dry, intact, normal color. Absent: rash Course Vital Signs 03/08/19 20:16 Temperature 97.3 F L Pulse Rate 55 L Respiratory 18 Rate Blood Pressure 146/78 O2 Sat by Pulse 96 Oximetry Medical Decision Making - Medical Decision Making Patient is a 70-year-old male who presents emergency Department today with complaints of hematuria after having a Hair catheter initiated from urinary retention. He had his initial fully catheter removed statement Dr. Zuñiga. He was sent in for concerns for low hemoglobin. At this time patient's hemoglobin is 8.2. This increased from 8.1 earlier this week. Patient otherwise appears well. I informed patient's family the results. They state they wanted to transfer him back home to [facility] in the leg. Patient will be discharged at this time with follow-up with Dr. Zuñiga tomorrow. - Lab Data Result diagrams: 03/08/19 20:47 03/08/19 20:47 Lab Results 03/08/19 03/08/19 03/08/19 Range/Units 20:47 20:47 20:47 WBC 6.1 (3.8-10.6) k/uL RBC 2.83 L (4.30-5.90) m/uL Hgb 8.2 L (13.0-17.5) gm/dL Hct 24.1 L (39.0-53.0) % MCV 85.1 (80.0-100.0) fL MCH 28.8 (25.0-35.0) pg MCHC 33.9 (31.0-37.0) g/dL RDW 15.5 (11.5-15.5) % Plt Count 370 (150-450) k/uL Neutrophils % 59 % Lymphocytes % 22 % Monocytes % 7 % Eosinophils % 9 % Basophils % 1 % Neutrophils # 3.6 (1.3-7.7) k/uL Lymphocytes # 1.3 (1.0-4.8) k/uL Monocytes # 0.4 (0-1.0) k/uL Eosinophils # 0.5 (0-0.7) k/uL Basophils # 0.1 (0-0.2) k/uL Hypochromasia Slight Poikilocytosis Slight PT (9.0-12.0) sec INR (<1.2) APTT (22.0-30.0) sec Sodium 142 (137-145) mmol/L Potassium 4.1 (3.5-5.1) mmol/L Chloride 108 H (98-107) mmol/L Carbon Dioxide 26 (22-30) mmol/L Anion Gap 8 mmol/L BUN 27 H (9-20) mg/dL Creatinine 1.25 (0.66-1.25) mg/dL Est GFR (CKD-EPI)AfAm 64 (>60 ml/min/1.73 sqM) Est GFR (CKD-EPI)NonAf 55 (>60 ml/min/1.73 sqM) Glucose 110 H (74-99) mg/dL Calcium 8.7 (8.4-10.2) mg/dL Total Bilirubin 0.6 (0.2-1.3) mg/dL AST 26 (17-59) U/L ALT 39 (21-72) U/L Alkaline Phosphatase 103 (38-126) U/L Total Protein 6.1 L (6.3-8.2) g/dL Albumin 3.3 L (3.5-5.0) g/dL Blood Type O Negative Blood Type Recheck No Antibody Screen NEGATIVE Spec Expiration Date 03/11/2019 - 234603/08/19 Range/Units 20:47 WBC (3.8-10.6) k/uL RBC (4.30-5.90) m/uL Hgb (13.0-17.5) gm/dL Hct (39.0-53.0) % MCV (80.0-100.0) fL MCH (25.0-35.0) pg MCHC (31.0-37.0) g/dL RDW (11.5-15.5) % Plt Count (150-450) k/uL Neutrophils % % Lymphocytes % % Monocytes % % Eosinophils % % Basophils % % Neutrophils # (1.3-7.7) k/uL Lymphocytes # (1.0-4.8) k/uL Monocytes # (0-1.0) k/uL Eosinophils # (0-0.7) k/uL Basophils # (0-0.2) k/uL Hypochromasia Poikilocytosis PT 12.6 H (9.0-12.0) sec INR 1.2 H (<1.2) APTT 23.9 (22.0-30.0) sec Sodium (137-145) mmol/L Potassium (3.5-5.1) mmol/L Chloride (98-107) mmol/L Carbon Dioxide (22-30) mmol/L Anion Gap mmol/L BUN (9-20) mg/dL Creatinine (0.66-1.25) mg/dL Est GFR (CKD-EPI)AfAm (>60 ml/min/1.73 sqM) Est GFR (CKD-EPI)NonAf (>60 ml/min/1.73 sqM) Glucose (74-99) mg/dL Calcium (8.4-10.2) mg/dL Total Bilirubin (0.2-1.3) mg/dL AST (17-59) U/L ALT (21-72) U/L Alkaline Phosphatase (38-126) U/L Total Protein (6.3-8.2) g/dL Albumin (3.5-5.0) g/dL Blood Type Blood Type Recheck Antibody Screen Spec Expiration Date Disposition Clinical Impression: Hematuria Disposition: DC/TRNS INTERMEDIATE CARE FAC Condition: Good Is patient prescribed a controlled substance at d/c from ED?: No Referrals: Trino Muñoz MD [Primary Care Provider] - 1-2 days Time of Disposition: 22:19 - Out of Hospital Transfer - Req. Specs Out of Hospital Transfer - Requested Specifics: Other Non-Acute ([facility])
[2019-03-08 22:58] VITALS: BP 147/69; PULSE 78; RESP 16
== END 2019-03-08 22:56 ==
LOC: EC 20:11
DX: R31.9 Hematuria, unspecified (principal); R33.9 Retention of urine, unspecified; D64.9 Anemia, unspecified; I25.10 Atherosclerotic heart disease of native coronary artery without angina pectoris; N40.0 Benign prostatic hyperplasia without lower urinary tract symptoms; Z86.711 Personal history of pulmonary embolism; Z86.718 Personal history of other venous thrombosis and embolism; Z90.49 Acquired absence of other specified parts of digestive tract; Z95.5 Presence of coronary angioplasty implant and graft; Z98.890 Other specified postprocedural states; Z79.899 Other long term (current) drug therapy
CPT/HCPCS: 36415; 80053; 85025; 85610; 85730; 86850; 86900; 86901; 99284

== ENCOUNTER 2019-03-17 09:09 | Inpatient (IN) | payer MEDICARE ==
--- NOTE | 2019-03-16 12:30 | P.GSHP ---
History of Present Illness H&P Date: 03/16/19 78 yo male with urine retention due to a large prostate He had greenlight laser in [place] in the fall that failed to liberate him from his retention He has failed voiding trials several times He had gross hematuria with clot retention secondary to a uti that required cysto with clot evacuation The cysto identified persistence of apical obstructing tissue. He had a cmg that showed his bladder worked He comes for a turp - Constitutional Constitutional: Denies chills, Denies fever - EENT Eyes: denies blurred vision, denies pain Ears, nose, mouth and throat: Denies headache, Denies sore throat - Cardiovascular Cardiovascular: Denies chest pain, Denies shortness of breath - Respiratory Respiratory: Denies cough, Denies 7 - Gastrointestinal Gastrointestinal: Denies abdominal pain, Denies diarrhea, Denies nausea, Denies vomiting - Genitourinary (Female) Genitourinary: Denies dysuria, Denies hematuria - Genitourinary (Male) Genitourinary: Denies dysuria, Denies hematuria - Musculoskeletal Musculoskeletal: Denies myalgias - Integumentary Integumentary: Denies pruritus, Denies rash - Neurological Neurological: Denies numbness, Denies weakness - Psychiatric Psychiatric: Denies anxiety, Denies depression - Endocrine Endocrine: Denies fatigue, Denies weight change Past Medical History Past Medical History: Blood Disorder, Coronary Artery Disease (CAD), Heart Failure, Deep Vein Thrombosis (DVT), Hyperlipidemia, Musculoskeletal Disorder, Osteoarthritis (OA), Pneumonia, Prostate Disorder, Pulmonary Embolus (PE) Additional Past Medical History / Comment(s): R leg DVT 2007, urinary retention, BPH with surgery, bladder stones w/ surgery, Chronic Anemia, chronic low back pain, neuropathy R foot. 02/16/19 UTI W/ SEPSIS, HAS VELEZ, DISCHARGED TO [facility] 03/03/19-03/13/19; GETTING IV AB AT DR PLEITEZ'Micheline DAILY. RECEIVED 1 U RBC'S 03/11/19 (3 UNITS DURING [facility]ST [facility] STAY). History of Any Multi-Drug Resistant Organisms: None Reported Past Surgical History: Appendectomy, Heart Catheterization, Heart Catheterization With Stent, Prostate Surgery Additional Past Surgical History / Comment(s): Bladder stone removal 03/2018, TURVP, colonoscopy, cardiac caths with last one done 01/25/19, treat medically. PTCA W/ STENTS X3. 02/22/19 PICC LINE. CYSTO, LITHOTRIPSY, EVAC CLOTS 02/24/19. Past Anesthesia/Blood Transfusion Reactions: No Reported Reaction Date of Last Stent Placement:: 01/2019 Smoking Status: Never smoker - Past Family History Father Family Medical History: No Reported History Additional Family Medical History / Comment(s): Father was healthy and lived to be 95 yrs old. Mother Family Medical History: Hypertension Additional Family Medical History / Comment(s): Mother of a brain tumor at the age of 75yrs. Pt states they never found out if it was cancerous. Medications and Allergies Home Medications Medication Instructions Recorded Confirmed Type Aspirin 81 mg PO DAILY #30 chew 02/24/18 03/15/19 Rx Atorvastatin [Lipitor] 80 mg PO HS #30 tab 02/24/18 03/15/19 Rx Clopidogrel [Plavix] 75 mg PO DAILY #30 tab 02/24/18 03/15/19 Rx Nitroglycerin Sl Tabs [Nitrostat] 0.4 mg SUBLINGUAL Q5M PRN #30 tab 02/24/18 03/15/19 Rx Gabapentin [Neurontin] 300 mg PO TID 08/24/18 03/15/19 History Tamsulosin [Flomax] 0.4 mg PO BID 09/09/18 03/15/19 History Furosemide [Lasix] 40 mg PO DAILY tab 02/23/19 03/15/19 Rx Acetaminophen Tab [Tylenol] 650 mg PO Q4HR PRN tab 03/03/19 03/15/19 Rx Docusate Sodium [Dok] 100 mg PO DAILY PRN 03/15/19 03/15/19 History Zantac Otc 1 tab PO DAILY PRN 03/15/19 History DAPTOmycin [Daptomycin] 750 mg IV DAILY 03/16/19 03/16/19 History Allergies Allergy/AdvReac Type Severity Reaction Status Date / Time No Known Allergies Allergy Verified 03/15/19 17:24 Surgical - Exam - General well developed, well nourished, no distress - Eyes PERRL - ENT no hearing loss - Neck no masses, trachea midline - Respiratory normal expansion, normal respiratory effort - Cardiovascular Rhythm: irregularly irregular - Abdomen Abdomen: soft, non tender - Genitourinary indwelling catheter. normal penis with no external lesions, testicles present - Rectum large prostate. - Integumentary no rash, no growths - Neurologic normal coordination, normal sensation - Musculoskeletal normal gait, normal posture - Psychiatric oriented to time, oriented to person, oriented to place, speech is normal, memory intact Assessment and Plan Assessment: Impression: Persitent urine retention secondary to bph. Multiple medical illnesses. Plan Bipolar turp
[~2019-03-17 09:09] MED LIST: AMPICILLIN 1,000 MG in SODIUM CHLORIDE 0.9% 50 ML IVPB ONE; GENTAMICIN 140 MG in SODIUM CHLORIDE 0.9% 100 ML IVPB ONE; HYDROmorphone 0.5 MG/0.5 ML SYRINGE IVP PRN; LIDOCAINE 1% 20 ML VIAL (10MG/ML) FOR IV START INTRADERMA PRN; ONDANSETRON 4 MG/2 ML VIAL IVP ONE
[2019-03-17] MEDS: LACTATED RINGERS 1,000 ML IV SCH (10:00)
[2019-03-17] MEDS ORDERED: MIDAZOLAM 2 MG/2 ML VIAL ONE (11:34)
[2019-03-17] MEDS ORDERED: PHENYLEPHRINE-0.9% NACL SYG 1 MG/10 ML SYRINGE ONE (11:34)
[2019-03-17] MEDS ORDERED: LIDOCAINE 1% INJ 10MG/ML (20 ML MDV) ONE (11:34)
[2019-03-17] MEDS ORDERED: PROPOFOL 10 MG/ML 20 ML VIAL IV ONE (11:34)
[2019-03-17] MEDS ORDERED: ROCURONIUM BROMIDE 10 MG/ML 10 ML VIAL IV ONE (11:34)
[2019-03-17] MEDS ORDERED: fentaNYL (PF) 50 MCG/ML 2 ML AMP ONE (11:34)
[2019-03-17] MEDS ORDERED: FAMOTIDINE 20 MG TAB PO PRN (13:09)
[2019-03-17] MEDS ORDERED: DOCUSATE 100 MG CAP PO PRN (13:09)
[2019-03-17] MEDS ORDERED: ACETAMINOPHEN TAB 325 MG TAB PO PRN ×2 (13:09→13:10)
[2019-03-17] MEDS ORDERED: NITROGLYCERIN SL TABS 0.4 MG TAB SUBLINGUAL PRN (13:09)
[2019-03-17] MEDS ORDERED: BELLADONNA-OPIUM 16.2-60 MG 1 EACH SUPP RECTAL PRN (13:10)
[2019-03-17] MEDS ORDERED: MAG HYDROX/AL HYDROX/SIMETH 30 ML CUP PO PRN (13:10)
--- NOTE | 2019-03-17 13:14 | P.OP ---
Date of Procedure: 03/17/19 Preoperative Diagnosis: urine retention secondary to BPH Postoperative Diagnosis: same Procedure(s) Performed: bipolar TURP Anesthesia: ALTA Surgeon: Cma Ryan Pathology: other (prostate) Condition: stable Disposition: PACU Indications for Procedure: the patient is 78. He has a known history of a very large prostate. He had a green light laser prostatectomy in [place] several months ago that did not liberate him for urine retention. He unfortunately developed cardiac issues that required coronary bypass stents. He then developed a urine infection with gross hematuria and clot retention. I did cystoscopy identified and persistent obstruction of apical and lateral tissue. He comes for TURP of the remaining tissue. Description of Procedure: patient brought In suite. He is given a general anesthesia. He is prepped and draped sterilely. Under direct vision the 25-S[place] Arabian sheath direct vision obturator and Foroblique lenses introduced in urethra is normal the prostate shows marked lateral lobe obstruction right greater than left in particular mid prostate to verumontanum. The bladder is inspected shows severe trabeculation with cellules. The bladder and prostate are irrigated out thoroughly. I first resect the mid to apical tissue on the right side from 12:00 to 6:00 from mid prostate to verumontanum I do the same on the left side and then resect the redundant floor tissue. Bleeding was controlled electrocautery. I evacuate the prostatatic chips from the bladder with the Nuris evacuator. I reinspected the prostate there is no significant bleeding. An 18-Saudi Arabian coud-tip catheter is introduced in the bladder with light pink urine return. Blood loss is 100 mL. He tolerated procedure well be observed in the hospital overnight.
[2019-03-17 15:15] VITALS: BMI 31.1
[2019-03-17] MEDS ORDERED: DAPTOMYCIN 750 MG IV SCH (16:00)
[2019-03-17] MEDS: DEXTROSE 5%-0.45% NACL 1,000 ML IV SCH (17:22)
[2019-03-17] MEDS: GABAPENTIN 300 MG CAP PO SCH ×2 (17:22→20:00)
[2019-03-17] MEDS: DAPTOmycin 750 MG in SODIUM CHLORIDE 0.9% 50 ML IVPB SCH (17:23)
[2019-03-17] MEDS: ATORVASTATIN 80 MG TAB PO SCH ×2 (20:00→20:02)
[2019-03-17] MEDS: TAMSULOSIN 0.4 MG CAP.ER.24H PO SCH (20:01)
[2019-03-18] MEDS: DEXTROSE 5%-0.45% NACL 1,000 ML IV SCH ×2 (03:55→16:20)
[2019-03-18] MEDS: LACTATED RINGERS 1,000 ML IV SCH (03:56)
--- NOTE | 2019-03-18 06:42 | P.PN ---
Subjective Progress Note Date: 03/18/19 The patient is in his first postoperative day from a bipolar TURP to a very large prostate. He had a previous greenlight laser that remained in retention. He had a moderate amount of bleeding requiring irrigations and change of catheter. The urine is clearing this morning. There is old blood in the ca theter drainage. I will observe him to make sure that he continues to drain freely before his discharge home. I do not want him to go home and come back for repeat irrigations her catheter change. His vital signs are stable and he is otherwise doing well. Objective - Vital Signs Vital signs: Vital Signs Temp 98.8 F 03/18/19 01:39 Pulse 52 L 03/18/19 01:39 Resp 16 03/18/19 01:39 BP 107/58 03/18/19 01:39 Pulse Ox 97 03/18/19 01:39 Intake & Output 03/17/19 03/17/19 03/18/19 06:59 18:59 06:59 Intake Total 1453.5 1200 Output Total 890 625 Balance 563.5 575 Intake: IV 1273.5 Oral 180 1200 Output: Urine 790 625 Coude 740 300 Estimated Blood Loss 100 Other: Voiding Method Indwelling Catheter Indwelling Catheter
[2019-03-18] MEDS: GABAPENTIN 300 MG CAP PO SCH ×3 (08:37→20:27)
[2019-03-18] MEDS: FUROSEMIDE 40 MG TAB PO SCH (08:37)
[2019-03-18] MEDS: TAMSULOSIN 0.4 MG CAP.ER.24H PO SCH ×2 (08:37→20:27)
[2019-03-18 11:53] LABS: Basophils % (A) 0 %; Eosinophils # (A) 0.5 k/uL (0-0.7); Eosinophils % (A) 5 %; HCT 29.5 % (39.0-53.0); HGB 9.3 gm/dL (13.0-17.5); Hypochromasia Moderate; Lymphocytes # (A) 1.3 k/uL (1.0-4.8); Lymphocytes % (A) 16 %; MCH 28.7 pg (25.0-35.0); MCHC 31.6 g/dL (31.0-37.0); MCV 90.7 fL (80.0-100.0); Mean Platelet Volume 7.7; Monocytes # (A) 0.5 k/uL (0-1.0); Monocytes % (A) 6 %; Neutrophils # (A) 5.9 k/uL (1.3-7.7); Neutrophils % (A) 71 %; Platelet Count 237 k/uL (150-450); RBC 3.26 m/uL (4.30-5.90); RDW 15.5 % (11.5-15.5); WBC 8.3 k/uL (3.8-10.6)
[2019-03-18 11:55] LABS: Calcium 8.6 mg/dL (8.4-10.2); Magnesium 1.9 mg/dL (1.6-2.3); Potassium 4.4 mmol/L (3.5-5.1)
[2019-03-18] MEDS: ASPIRIN 81 MG PO SCH (12:19)
[2019-03-18] MEDS: CLOPIDOGREL 75 MG TAB PO SCH (12:19)
--- NOTE | 2019-03-18 14:14 | P.CRDCN ---
History of Present Illness History of present illness: This is a pleasant 78-year-old male past medical history significant for coronary artery disease status post stent placement to the mid LAD January 2019 with drug eluting stent, hypertension, dyslipidemia, recent discitis septicemia, dyslipidemia, history of PE and DVT, BPH and is status post TURP procedure. He follows in the office with Dr. Alejo. His initial heart cath in 2017 revealed a sub totally occluded LAD and he underwent successful stent placement by Dr. Hurtado. Then he had a repeat cath in January 2019 revealing severe in-stent restenosis. We have been asked to see him in consultation secondary to low heart rate after procedure. The patient is seen and examined resting comfortably in bed in no acute distress. He has an indwelling Velez catheter in place of which bright red blood is noted in the drainage bag. He denies symptoms of chest discomfort, shortness of breath, dizziness, palpitations, nausea, vomiting or diaphoresis. Blood pressure is 128/64 heart rate is 57 afebrile maintaining oxygen saturation on room air. Prior to admission he was maintained on dual antiplatelet therapy in the form of aspirin 81 mg daily and Plavix 75 mg daily. This has not been resumed due to hematuria. Dr. Loaiza did speak with Dr. Ryan and informed him of the importance of resuming the dual antiplatelet therapy secondary to recent stent placement as soon as possible. Laboratory data reviewed, WBC 8.3, hemoglobin 9.3, platelets 237, sodium 137, potassium 4.4, creatinine 1.0, magnesium 1.9, TSH 0.052 and free T4 is pending. At the time of my exam: CONSTITUTIONAL: Denies fever. Denies chills. EYES: Denies blurred vision. Denies vision changes. Denies eye pain. EARS, NOSE, MOUTH & THROAT: Denies headache. Denies sore throat. Denies ear pain. CARDIOVASCULAR: Denies chest pain. Denies shortness of breath. Denies orthopnea. Denies PND. Denies palpitations. RESPIRATORY: Denies cough. GASTROINTESTINAL: Denies abdominal pain. Denies diarrhea. Denies constipation. Denies nausea. Denies vomiting. MUSCULOSKELETAL: Denies myalgias. INTEGUMENTARY: Denies pruitis. Denies rash. NEUROLOGIC: Denies numbness. Denies tingling. Denies weakness. PSYCHIATRIC: Denies anxiety. Denies depression. ENDOCRINE: Denies fatigue. Denies weight change. Denies polydipsia. Denies polyurina. GENITOURINARY: Denies burning or urgency with micturation. Complains of he maturia HEMATOLOGIC: Denies history of anemia. Denies bleeding. GENERAL: This is a 78-year-old male in no apparent distress at the time of my examination. HEENT: Head is atraumatic, normocephalic. Pupils are equal, round. Sclerae anicteric. Conjunctivae are clear. Mucous membranes of the mouth are moist. Neck is supple. There is no jugular venous distention. No carotid bruit is heard. LUNGS: Clear to auscultation no wheezes, rales or rhonchi. No chest wall tenderness is noted on palpation or with deep breathing. HEART: Regular rate and rhythm with short systolic murmur at the base, no rubs or gallops. S1 and S2 heard. ABDOMEN: Soft, nontender. Bowel sounds are heard. No organomegaly noted. Indwelling Velez catheter in place with bright red blood noted in the drainage bag. EXTREMITIES: No evidence of peripheral edema and no calf tenderness noted. VASCULAR: Radial and dorsalis pedis pulses palpated, no evidence of clubbing. NEUROLOGIC: Patient is awake, alert and oriented x3. ASSESSMENT Status post TURP secondary to BPH with subsequent hematuria Asymptomatic bradycardia Coronary artery disease status post recent stent placement to the mid LAD for in-stent restenosis in January 22, 2019 was maintained on dual antiplatelet therapy. This has been stopped per urology. Hypertension Dyslipidemia Recent admission for discitis causing septicemia PLAN Obtain EKG. Check thyroid profile. Apply designer architect. Dr. Loaiza has spoken to Dr. Ryan this morning and discussed the importance of resuming the plavix and aspirin JOLANTA due to recent stent placement. Further recommendations to follow based on clinical course. Thank you kindly for this consultation. Nurse Practitioner note has been reviewed, I agree with a documented findings and plan of care. Patient was seen and examined. Past Medical History Past Medical History: Blood Disorder, Coronary Artery Disease (CAD), Heart Failure, Deep Vein Thrombosis (DVT), Hyperlipidemia, Musculoskeletal Disorder, Osteoarthritis (OA), Pneumonia, Prostate Disorder, Pulmonary Embolus (PE) Additional Past Medical History / Comment(s): R leg DVT 2007, urinary retention, BPH with surgery, bladder stones w/ surgery, Chronic Anemia, chronic low back p ain, neuropathy R foot. 02/16/19 UTI W/ SEPSIS, HAS VELEZ, DISCHARGED TO [facility] 03/03/19-03/13/19; GETTING IV AB AT DR PLEITEZ'S DAILY. RECEIVED 1 U RBC'S 03/11/19 (3 UNITS DURING [facility]ST [facility] STAY). History of Any Multi-Drug Resistant Organisms: None Reported Past Surgical History: Appendectomy, Heart Catheterization, Heart Catheterization With Stent, Prostate Surgery Additional Past Surgical History / Comment(s): Bladder stone removal 03/2018, TURVP, colonoscopy, cardiac caths with last one done 01/25/19, treat medically. PTCA W/ STENTS X3. 02/22/19 PICC LINE. CYSTO, LITHOTRIPSY, EVAC CLOTS 02/24/19. Past Anesthesia/Blood Transfusion Reactions: No Reported Reaction Date of Last Stent Placement:: 01/2019 Past Psychological History: No Psychological Hx Reported Additional Psychological History / Comment(s): Pt resides with his spouse. He uses no assistive device but they do own a cane and a walker. 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 Smoking Status: Never smoker Past Alcohol Use History: None Reported Past Drug Use History: None Reported - Past Family History Father Family Medical History: No Reported History Additional Family Medical History / Comment(s): Father was healthy and lived to be 95 yrs old. Mother Family Medical History: Hypertension Additional Family Medical History / Comment(s): Mother of a brain tumor at the age of 75yrs. Pt states they never found out if it was cancerous. Medications and Allergies Home Medications Medication Instructions Recorded Confirmed Type Aspirin 81 mg PO DAILY #30 chew 02/24/18 03/17/19 Rx Clopidogrel [Plavix] 75 mg PO DAILY #30 tab 02/24/18 03/17/19 Rx Nitroglycerin Sl Tabs [Nitrostat] 0.4 mg SUBLINGUAL Q5M PRN #30 tab 02/24/18 03/17/19 Rx Gabapentin [Neurontin] 300 mg PO TID 08/24/18 03/17/19 History Tamsulosin [Flomax] 0.4 mg PO BID 09/09/18 03/17/19 History Furosemide [Lasix] 40 mg PO DAILY tab 02/23/19 03/17/19 Rx Acetaminophen Tab [Tylenol] 650 mg PO Q4HR PRN tab 03/03/19 03/17/19 Rx Docusate Sodium [Dok] 100 mg PO DAILY PRN 03/15/19 03/17/19 History Zantac Otc 1 tab PO DAILY PRN 03/15/19 03/17/19 History DAPTOmycin [Daptomycin] 750 mg IV DAILY 03/16/19 03/17/19 History Allergies Allergy/AdvReac Type Severity Reaction Status Date / Time No Known Allergies Allergy Verified 03/15/19 17:24 Physical Exam Vitals: Vital Signs Temp Pulse Pulse Resp BP Pulse Ox 03/18/19 07:00 98.3 F 57 L 16 128/64 95 03/18/19 01:39 98.8 F 52 L 16 107/58 97 03/17/19 19:34 98.1 F 51 L 16 122/57 99 03/17/19 16:30 55 L 102/45 03/17/19 16:15 49 L 133/75 03/17/19 16:00 50 L 145/80 03/17/19 15:45 48 L 127/70 03/17/19 15:30 49 L 134/64 03/17/19 15:15 50 L 138/58 03/17/19 15:00 51 L 128/74 03/17/19 14:45 48 L 139/67 03/17/19 14:30 51 L 127/66 99 03/17/19 14:00 50 L 16 131/63 100 Intake and Output 03/17/19 03/18/19 03/18/19 22:59 06:59 14:59 Intake Total 780 600 896 Output Total 1415 700 Balance -635 600 196 Intake: IV 600 Dextrose 5%-0.45% NaCl 1, 600 000 ml @ 75 mls/hr IV . [id number] [facility] Rx#:[id number] Oral 780 600 296 Output: Urine 1415 700 Coude 1040 Other: Voiding Method Indwelling Catheter Indwelling Catheter Indwelling Catheter Results 03/18/19 11:28 03/18/19 11:28 CBC 03/18/19 Range/Units 11:28 WBC 8.3 (3.8-10.6) k/uL RBC 3.26 L (4.30-5.90) m/uL Hgb 9.3 L (13.0-17.5) gm/dL Hct 29.5 L (39.0-53.0) % Plt Count 237 (150-450) k/uL Comprehensive Metabolic Panel 03/18/19 Range/Units 11:28 Sodium 137 (137-145) mmol/L Potassium 4.4 (3.5-5.1) mmol/L Chloride 103 (98-107) mmol/L Carbon Dioxide 28 (22-30) mmol/L BUN 24 H (9-20) mg/dL Creatinine 1.00 (0.66-1.25) mg/dL Glucose 112 H (74-99) mg/dL Calcium 8.6 (8.4-10.2) mg/dL Current Medications Generic Name Dose Route Start Last Admin Trade Name Freq PRN Reason Stop Dose Admin Acetaminophen 650 mg 03/17/19 13:09 Tylenol Tab PO Q4HR PRN Fever and/ or Mild Pain Acetaminophen 650 mg 03/17/19 13:10 Tylenol Tab PO Q4HR PRN Fever and/ or Pain Al Hydroxide/Mg Hydroxide 30 ml 03/17/19 13:10 Maalox PO DAILY PRN Indigestion Aspirin 81 mg 03/18/19 11:15 03/18/19 12:19 Aspirin PO Not Given DAILY [facility] Atorvastatin Calcium 80 mg 03/17/19 21:00 03/17/19 20:02 Lipitor PO Not Given HS [facility] Belladonna Alkaloids/Opium 1 each 03/17/19 13:10 B&O Suppository RECTAL Q6HR PRN Spasms Clopidogrel Bisulfate 75 mg 03/18/19 11:15 03/18/19 12:19 Plavix PO Not Given DAILY [facility] Docusate Sodium 100 mg 03/17/19 13:09 Colace PO DAILY PRN Constipation Famotidine 20 mg 03/17/19 13:09 Pepcid PO DAILY PRN GERD Furosemide 40 mg 03/18/19 09:00 03/18/19 08:37 Lasix PO 40 mg DAILY MART[facility]N Administration Gabapentin 300 mg 03/17/19 16:00 03/18/19 08:37 Neurontin PO 300 mg TID MART[facility]N Administration Lactated Ringer's 1,000 mls @ 20 mls/hr 03/17/19 06:11 03/18/19 03:56 Lactated Ringers IV Not Given .Q24H MART[facility]N Dextrose/Sodium Chloride 1,000 mls @ 75 mls/hr 03/17/19 13:15 03/18/19 03:55 Dextrose 5%-1/2ns Iv Soln IV 75 mls/hr .[id number] MART[facility]N Administration Daptomycin 750 mg/ Sodium 50 mls @ 100 mls/hr 03/17/19 16:00 03/17/19 17:23 Chloride IVPB 100 mls/hr Q24H MARTÍN Administration Lidocaine HCl 0.1 ml 03/17/19 06:11 03/17/19 10:00 .Xylocaine 1% Inj (10mg/Ml) For Iv Start INTRADERMA 0.1 ml PER PROTOCOL PRN Administration IV Start Nitroglycerin 0.4 mg 03/17/19 13:09 Nitrostat SUBLINGUAL Q5M PRN Chest Pain Tamsulosin HCl 0.4 mg 03/17/19 21:00 03/18/19 08:37 Flomax PO 0.4 mg BID MARTÍN Administration Intake and Output 03/17/19 03/18/19 03/18/19 22:59 06:59 14:59 Intake Total 780 600 896 Output Total 1415 700 Balance -635 600 196 Intake: IV 600 Dextrose 5%-0.45% NaCl 1, 600 000 ml @ 75 mls/hr IV . [id number] [facility] Rx#:[id number] Oral 780 600 296 Output: Urine 1415 700 Coude 1040 Other: Voiding Method Indwelling Catheter Indwelling Catheter Indwelling Catheter 03/18/19 11:28 03/18/19 11:28
[2019-03-18 14:42] LABS: T4, Free (Free Thyroxine) 1.15 ng/dL (0.78-2.19)
[2019-03-18] MEDS: DAPTOmycin 750 MG in SODIUM CHLORIDE 0.9% 50 ML IVPB SCH (16:20)
[2019-03-18] MEDS: ATORVASTATIN 80 MG TAB PO SCH (20:59)
[2019-03-19] MEDS: DEXTROSE 5%-0.45% NACL 1,000 ML IV SCH (04:42)
--- NOTE | 2019-03-19 07:05 | P.DS ---
Providers Date of admission: 03/18/19 13:36 Attending physician: aCm Ryan Consults: 03/17/19 15:51 Consult Physician Urgent Consulting Provider: Tera Alejo Consult Reason/Comments: Low heart rate, known to you Do you want consulting provider notified?: Yes Primary care physician: Wanda Jameson [facility] Course: The patient is 78. He has a very large prostate. He underwent a greenlight laser prostatectomy in the fall in [place] the did not relieve him of his urine retention. He was in the hospital recently where he had a clot urinary retention during the urine infection. Cystoscopy at that point in time aside from removing the clot identified persistent enlargement of the prostate in particular apically. He underwent a TURP 48 hours ago. He was admitted the hospital overnight because of bleeding and clot. This is subsided over the last 24 hours. He is ready for discharge home. His urine is cleared nicely. He'll follow-up in the office on Friday for catheter removal. Pathology report is pending. He may resume his aspirin and Plavix tomorrow urine remains clear. His condition is good Patient Condition at Discharge: Good Plan - Discharge Summary Discharge Rx Participant: No New Discharge Prescriptions: No Action RX: Aspirin 81 mg PO DAILY #30 chew RX: Clopidogrel [Plavix] 75 mg PO DAILY #30 tab RX: Nitroglycerin Sl Tabs [Nitrostat] 0.4 mg SUBLINGUAL Q5M PRN #30 tab PRN Reason: Chest Pain RX: Gabapentin [Neurontin] 300 mg PO TID RX: Tamsulosin [Flomax] 0.4 mg PO BID RX: Furosemide [Lasix] 40 mg PO DAILY tab RX: Acetaminophen Tab [Tylenol] 650 mg PO Q4HR PRN tab PRN Reason: Fever and/ or Mild Pain Zantac Otc 1 tab PO DAILY PRN PRN Reason: GERD Docusate Sodium [Dok] 100 mg PO DAILY PRN PRN Reason: Constipation DAPTOmycin [Daptomycin] 750 mg IV DAILY Discharge Medication List RX: Aspirin 81 mg PO DAILY #30 chew 02/24/18 [Rx] RX: Clopidogrel [Plavix] 75 mg PO DAILY #30 tab 02/24/18 [Rx] RX: Nitroglycerin Sl Tabs [Nitrostat] 0.4 mg SUBLINGUAL Q5M PRN #30 tab 02/24/18 [Rx] RX: Gabapentin [Neurontin] 300 mg PO TID 08/24/18 [History] RX: Tamsulosin [Flomax] 0.4 mg PO BID 09/09/18 [History] RX: Furosemide [Lasix] 40 mg PO DAILY tab 02/23/19 [Rx] RX: Acetaminophen Tab [Tylenol] 650 mg PO Q4HR PRN tab 03/03/19 [Rx] Docusate Sodium [Dok] 100 mg PO DAILY PRN 03/15/19 [History] Zantac Otc 1 tab PO DAILY PRN 03/15/19 [History] DAPTOmycin [Daptomycin] 750 mg IV DAILY 03/16/19 [History] Follow up Appointment(s)/Referral(s): Cam Ryan MD [STAFF PHYSICIAN] - 03/29/19 Activity/Diet/Wound Care/Special Instructions: May resume aspirin and Plavix tomorrow if urine is clear Discharge Disposition: HOME SELF-CARE
[2019-03-19 07:36] VITALS: BP 149/76; PULSE 60; RESP 14; TEMP 98.3
[2019-03-19] MEDS: CLOPIDOGREL 75 MG TAB PO SCH (08:26)
[2019-03-19] MEDS: ASPIRIN 81 MG PO SCH (08:26)
[2019-03-19] MEDS: FUROSEMIDE 40 MG TAB PO SCH (08:27)
[2019-03-19] MEDS: GABAPENTIN 300 MG CAP PO SCH (08:27)
[2019-03-19] MEDS: TAMSULOSIN 0.4 MG CAP.ER.24H PO SCH (08:27)
[2019-03-19 10:15] LABS: HGB 9.4 gm/dL (13.0-17.5); Hypochromasia Moderate; MCH 28.2 pg (25.0-35.0); MCHC 31.5 g/dL (31.0-37.0); MCV 89.5 fL (80.0-100.0); Mean Platelet Volume 7.4; Platelet Count 238 k/uL (150-450); RBC 3.35 m/uL (4.30-5.90); RDW 15.3 % (11.5-15.5); WBC 7.9 k/uL (3.8-10.6)
[2019-03-19] MEDS: DAPTOmycin 750 MG in SODIUM CHLORIDE 0.9% 50 ML IVPB SCH (11:00)
== END 2019-03-19 12:00 | disposition home or self-care (01) | DRG 714 ==
LOC: OR 09:09 → 4SSUR 13:02 → OR 03-18 15:51
PROVIDERS: ADMIT Urology; ATTEND Urology
PROC: 0VB08ZZ Excision of Prostate, Via Natural or Artificial Opening Endoscopic (ICD-10-PCS; principal; 2019-03-17 11:15)
DX: N40.1 Benign prostatic hyperplasia with lower urinary tract symptoms (principal); R33.8 Other retention of urine; I25.10 Atherosclerotic heart disease of native coronary artery without angina pectoris; I50.9 Heart failure, unspecified; I11.0 Hypertensive heart disease with heart failure; E78.5 Hyperlipidemia, unspecified; R31.0 Gross hematuria; G62.9 Polyneuropathy, unspecified; G89.29 Other chronic pain; M19.90 Unspecified osteoarthritis, unspecified site; Z79.82 Long term (current) use of aspirin; Z79.02 Long term (current) use of antithrombotics/antiplatelets; Z79.899 Other long term (current) drug therapy; Z86.711 Personal history of pulmonary embolism; Z86.718 Personal history of other venous thrombosis and embolism; Z95.5 Presence of coronary angioplasty implant and graft; Z87.440 Personal history of urinary (tract) infections; Z87.442 Personal history of urinary calculi; Z90.49 Acquired absence of other specified parts of digestive tract; Z87.01 Personal history of pneumonia (recurrent); Z82.49 Family history of ischemic heart disease and other diseases of the circulatory system
CPT/HCPCS: 80048; 83735; 84439; 84443; 84481; 85025; 85027; 88305; 93005

== ENCOUNTER 2019-05-05 16:54 | Inpatient (IN) | payer MEDICARE ==
[2019-05-05 18:38] LABS: Basophils % (A) 1 %; Eosinophils # (A) 0.3 k/uL (0-0.7); Eosinophils % (A) 5 %; HCT 32.1 % (39.0-53.0); HGB 10.1 gm/dL (13.0-17.5); Hypochromasia Moderate; Lymphocytes # (A) 1.5 k/uL (1.0-4.8); Lymphocytes % (A) 27 %; MCH 26.9 pg (25.0-35.0); MCHC 31.6 g/dL (31.0-37.0); MCV 85.1 fL (80.0-100.0); Mean Platelet Volume 7.7; Monocytes # (A) 0.4 k/uL (0-1.0); Monocytes % (A) 7 %; Neutrophils # (A) 3.2 k/uL (1.3-7.7); Neutrophils % (A) 59 %; Platelet Count 249 k/uL (150-450); RBC 3.77 m/uL (4.30-5.90); RDW 15.9 % (11.5-15.5); WBC 5.4 k/uL (3.8-10.6)
[2019-05-05 18:44] LABS: INR 1.1 (<1.2); Partial Thromboplastin Time 26.8 sec (22.0-30.0)
[2019-05-05 18:54] LABS: Albumin 3.9 g/dL (3.5-5.0); Calcium 9.3 mg/dL (8.4-10.2); Potassium 4.6 mmol/L (3.5-5.1); Total Bilirubin 0.7 mg/dL (0.2-1.3); Total Protein 6.9 g/dL (6.3-8.2)
[2019-05-05] MEDS ORDERED: VANCOMYCIN IV PER PHARMACY 1 EACH MISC MISCELLANE PRN (19:04)
[2019-05-05] MEDS ORDERED: VANCOMYCIN 1,500 MG in SODIUM CHLORIDE 0.9% 250 ML IVPB STA (19:09)
[2019-05-05] MEDS ORDERED: SODIUM CHLORIDE 0.9% 500 ML 500 ML IV STA (19:52)
--- NOTE | 2019-05-05 19:55 | ED ---
General Adult HPI - General Source: patient, RN notes reviewed Mode of arrival: ambulatory Limitations: no limitations <Mustapha Warren - Last Filed: 05/05/19 20:24> <Ihsan Pizano - Last Filed: 05/05/19 20:59> - General Chief complaint: Recheck/Abnormal Lab/Rx Stated complaint: Abn MRI, Sent by physician Time Seen by Provider: 05/05/19 18:02 - History of Present Illness Initial comments: 78-year-old male With past medical history of CAD, heart failure, DVT, hyperlipidemia, depressive disorder, PE, pneumonia presents to the emergency department for a chief complaint of abnormal MRI. Patient states he has had a history of discitis since March. States they believe that this is secondary to a urosepsis incident. He did receive ampicillin and gentamicin initially while admitted in the hospital. Patient has been on daptomycin through PICC line outpatient with Dr Cooper, Patient states that they were thinking the discitis was improving and he was going to go to oral medication soon. However he had an MRI today which showed progression of wedged deformity of T11. Findings appear to be compatible with progression compression deformities with discitis at T11 to T12. Due to these findings patient states he was sent into the ER.Patient has no other complaints at this time including shortness of breath, chest pain, abdominal pain, nausea or vomiting, headache, or visual changes. (Mustapha Warren) - Related Data Home Medications Medication Instructions Recorded Confirmed Gabapentin [Neurontin] 300 mg PO TID 08/24/18 03/18/19 Tamsulosin [Flomax] 0.4 mg PO BID 09/09/18 03/18/19 Docusate Sodium [Dok] 100 mg PO DAILY PRN 03/15/19 03/18/19 Zantac Otc 1 tab PO DAILY PRN 03/15/19 03/18/19 DAPTOmycin [Daptomycin] 750 mg IV DAILY 03/16/19 03/18/19 Previous Rx's Medication Instructions Recorded Aspirin 81 mg PO DAILY #30 chew 02/24/18 Clopidogrel [Plavix] 75 mg PO DAILY #30 tab 02/24/18 Nitroglycerin Sl Tabs [Nitrostat] 0.4 mg SUBLINGUAL Q5M PRN #30 tab 02/24/18 Furosemide [Lasix] 40 mg PO DAILY tab 02/23/19 Acetaminophen Tab [Tylenol] 650 mg PO Q4HR PRN tab 03/03/19 Allergies Allergy/AdvReac Type Severity Reaction Status Date / Time No Known Allergies Allergy Verified 05/05/19 17:18 Review of Systems ROS Other: All systems not noted in ROS Statement are negative. <Mustapha Warren - Last Filed: 05/05/19 20:24> ROS Other: All systems not noted in ROS Statement are negative. <Ihsan Pizano - Last Filed: 05/05/19 20:59> ROS Statement: Those systems with pertinent positive or pertinent negative responses have been documented in the HPI. Past Medical History Past Medical History: Coronary Artery Disease (CAD), Heart Failure, Deep Vein Thrombosis (DVT), Hyperlipidemia, Pneumonia, Prostate Disorder, Pulmonary Embolus (PE) Additional Past Medical History / Comment(s): R leg DVT, urinary retention, BPH with surgery, UTI with sepsis, bladder stones with surgery, chronic anemia, chronic low back pain, neuropathy R foot, recent sinus problems. History of Any Multi-Drug Resistant Organisms: None Reported Past Surgical History: Appendectomy, Heart Catheterization, Heart Catheterization With Stent, Prostate Surgery Additional Past Surgical History / Comment(s): Bladder stone removal 03/2018, TURVP, colonoscopy, cardiac caths with last one done 01/25/19 treat medically. Past Anesthesia/Blood Transfusion Reactions: No Reported Reaction Date of Last Stent Placement:: February 23, 2018 Past Psychological History: No Psychological Hx Reported Smoking Status: Never smoker Past Alcohol Use History: None Reported Past Drug Use History: None Reported - Past Family History Father Family Medical History: No Reported History Additional Family Medical History / Comment(s): Father was healthy and lived to be 95 yrs old. Mother Family Medical History: Hypertension Additional Family Medical History / Comment(s): Mother of a brain tumor at the age of 75yrs. Pt states they never found out if it was cancerous. <Mustapha Warren - Last Filed: 05/05/19 20:24> General Exam Limitations: no limitations General appearance: alert, in no apparent distress Head exam: Present: atraumatic, normocephalic, normal inspection Eye exam: Present: normal appearance, PERRL, EOMI. Absent: scleral icterus, conjunctival injection, periorbital swelling ENT exam: Present: normal exam, mucous membranes moist Neck exam: Present: normal inspection, full ROM. Absent: tenderness, meningismus, lymphadenopathy Respiratory exam: Present: normal lung sounds bilaterally. Absent: respiratory distress, wheezes, rales, rhonchi, stridor Cardiovascular Exam: Present: regular rate, normal rhythm, normal heart sounds. Absent: systolic murmur, diastolic murmur, rubs, gallop, clicks GI/Abdominal exam: Present: soft, normal bowel sounds. Absent: distended, tenderness, guarding, rebound, rigid Extremities exam: Present: normal capillary refill (Refill less than 2 seconds in bilateral lower extremities), other (Strength 5 out of 5 in bilateral lower extremities) Neurological exam: Present: alert, oriented X3, CN II-XII intact, normal gait Psychiatric exam: Present: normal affect, normal mood <Mustapha Warren - Last Filed: 05/05/19 20:24> Course Vital Signs 05/05/19 05/05/19 17:15 19:43 Temperature 98.3 F Pulse Rate 57 L 54 L Respiratory 16 18 Rate Blood Pressure 115/64 150/86 O2 Sat by Pulse 96 100 Oximetry EKG Findings - EKG Comments: EKG Findings:: Sinus bradycardia, ventricular rate 53, CT interval 142, QTC 454 <Mustapha Warren - Last Filed: 05/05/19 20:24> Medical Decision Making - Lab Data Result diagrams: 05/05/19 18:27 05/05/19 18:27 <Mustapha Warren - Last Filed: 05/05/19 20:24> - Lab Data Result diagrams: 05/05/19 18:27 05/05/19 18:27 <Ihsan Pizano - Last Filed: 05/05/19 20:59> - Medical Decision Making 78-year-old male with complicated past medical history presents for abnormal MRI. Patient was diagnosed with discitis and March and has been receiving daptomycin by PICC line. However today patient had an MRI which showed a progression compression deformities with discitis at T11 to T12. Mild anterior thecal sac compression. Patient was notified to come into the ER for further evaluation. Patient was found to be neurologically intact in the bilateral lower extremities. Ambulatory without difficulty. Vitals are stable. CBC unremarkable. Hemoglobin 10.1 which is improved. Creatinine 1.54, patient given fluids. Patient was started on vancomycin and Rocephin. Patient will be admitted for further management. Patient's ID specialist Dr Cooper will be consu lted. (Mustapha Warren) Patient reevaluated and reexamined by myself, Dr. Pizano. Patient is resting comfortably in bed. Patient and family are updated on results and plan. Case was discussed with Dr. Nunez, who will admit covering for Dr. yu. Case was also discussed in detail with Dr. Castaneda who will consult. He recommends daptomycin as well as consult with Dr. Buckner. I do agree with PA findings. This includes diagnostic interpretation and treatment plan. (Ihsan Pizano) - Lab Data Lab Results 05/05/19 05/05/19 05/05/19 Range/Units 18:27 18:27 18:27 WBC 5.4 (3.8-10.6) k/uL RBC 3.77 L (4.30-5.90) m/uL Hgb 10.1 L (13.0-17.5) gm/dL Hct 32.1 L (39.0-53.0) % MCV 85.1 (80.0-100.0) fL MCH 26.9 (25.0-35.0) pg MCHC 31.6 (31.0-37.0) g/dL RDW 15.9 H (11.5-15.5) % Plt Count 249 (150-450) k/uL Neutrophils % 59 % Lymphocytes % 27 % Monocytes % 7 % Eosinophils % 5 % Basophils % 1 % Neutrophils # 3.2 (1.3-7.7) k/uL Lymphocytes # 1.5 (1.0-4.8) k/uL Monocytes # 0.4 (0-1.0) k/uL Eosinophils # 0.3 (0-0.7) k/uL Basophils # 0.0 (0-0.2) k/uL Hypochromasia Moderate PT (9.0-12.0) sec INR (<1.2) APTT (22.0-30.0) sec Sodium 142 (137-145) mmol/L Potassium 4.6 (3.5-5.1) mmol/L Chloride 111 H (98-107) mmol/L Carbon Dioxide 25 (22-30) mmol/L Anion Gap 6 mmol/L BUN 34 H (9-20) mg/dL Creatinine 1.54 H (0.66-1.25) mg/dL Est GFR (CKD-EPI)AfAm 49 (>60 ml/min/1.73 sqM) Est GFR (CKD-EPI)NonAf 43 (>60 ml/min/1.73 sqM) Glucose 103 H (74-99) mg/dL Plasma Lactic Acid Jensen 0.8 (0.7-2.0) mmol/L Calcium 9.3 (8.4-10.2) mg/dL Total Bilirubin 0.7 (0.2-1.3) mg/dL AST 30 (17-59) U/L ALT 20 L (21-72) U/L Alkaline Phosphatase 81 (38-126) U/L Total Protein 6.9 (6.3-8.2) g/dL Albumin 3.9 (3.5-5.0) g/dL 05/05/19 Range/Units 18:27 WBC (3.8-10.6) k/uL RBC (4.30-5.90) m/uL Hgb (13.0-17.5) gm/dL Hct (39.0-53.0) % MCV (80.0-100.0) fL MCH (25.0-35.0) pg MCHC (31.0-37.0) g/dL RDW (11.5-15.5) % Plt Count (150-450) k/uL Neutrophils % % Lymphocytes % % Monocytes % % Eosinophils % % Basophils % % Neutrophils # (1.3-7.7) k/uL Lymphocytes # (1.0-4.8) k/uL Monocytes # (0-1.0) k/uL Eosinophils # (0-0.7) k/uL Basophils # (0-0.2) k/uL Hypochromasia PT 12.0 (9.0-12.0) sec INR 1.1 (<1.2) APTT 26.8 (22.0-30.0) sec Sodium (137-145) mmol/L Potassium (3.5-5.1) mmol/L Chloride (98-107) mmol/L Carbon Dioxide (22-30) mmol/L Anion Gap mmol/L BUN (9-20) mg/dL Creatinine (0.66-1.25) mg/dL Est GFR (CKD-EPI)AfAm (>60 ml/min/1.73 sqM) Est GFR (CKD-EPI)NonAf (>60 ml/min/1.73 sqM) Glucose (74-99) mg/dL Plasma Lactic Acid Jensen (0.7-2.0) mmol/L Calcium (8.4-10.2) mg/dL Total Bilirubin (0.2-1.3) mg/dL AST (17-59) U/L ALT (21-72) U/L Alkaline Phosphatase (38-126) U/L Total Protein (6.3-8.2) g/dL Albumin (3.5-5.0) g/dL Disposition Is patient prescribed a controlled substance at d/c from ED?: No Time of Disposition: 20:25 <Mustapha Warren - Last Filed: 05/05/19 20:24> <Ihsan Pizano - Last Filed: 05/05/19 20:59> Clinical Impression: Discitis of thoracic region, Failure of outpatient treatment Disposition: ADMITTED IP TO THIS HOSP Condition: Fair
[2019-05-05] MEDS ORDERED: NALOXONE 0.4 MG/ML 1 ML VIAL IV PRN (20:20)
[2019-05-05] MEDS ORDERED: ACETAMINOPHEN TAB 325 MG TAB PO PRN (20:20)
[2019-05-05] MEDS ORDERED: MORPHINE SULFATE 4 MG/ML SYRINGE IV PRN (20:20)
[2019-05-05] MEDS ORDERED: SODIUM CHLORIDE 0.9% 1,000 ML IV SCH (20:30)
[2019-05-05] MEDS ORDERED: DAPTOmycin 500 MG in SODIUM CHLORIDE 0.9% 50 ML IVPB SCH (21:00)
[2019-05-06] MEDS ORDERED: VANCOMYCIN 1,500 MG in SODIUM CHLORIDE 0.9% 250 ML IVPB SCH (06:00)
[2019-05-06 07:44] VITALS: RESP 16
--- NOTE | 2019-05-06 11:44 | P.CNOR ---
History of Present Illness - HPI Consult date: 05/06/19 Consult reason: other (Discitis T11 12) History of present illness: Patient's very pleasant 78-year-old male who seen and examined today at bedside. He is comfortable with his daughter. Apparently he is admitted to the hospital after he had a follow-up MRI done yesterday of his thoracic spine which showed changes at T 11-12. The patient was not having any new fevers or chills. He is not having any new symptoms lower extremities. He has some moderate pain at his back which has been stable for him over the past few weeks. Patient has a known history of discitis at T11 12 and has been treated with IV antibiotics over the past 2 months since the beginning of March. He has been managed with Dr. Cooper. He's been followed closely with his IV antibiotics with periodic lab work and follow-up. He is having some fluctuation in his lab work and Apparently he underwent a repeat MRI of his thoracic spine which showed some changes T 11 and T12. I reviewed the report any images myself. Patient says that he is ambulatory. He has been able to void well. He is not having change in bowel bladder function. He has not changed having changes in his lower extremity in terms of numbness tingling or strength or function. Review of Systems As stated per HPI. No lower extremity changes. No changes about her function. He is able to ambulate well. Past Medical History Past Medical History: Coronary Artery Disease (CAD), Heart Failure, Deep Vein Thrombosis (DVT), Hyperlipidemia, Pneumonia, Prostate Disorder, Pulmonary Embolus (PE) Additional Past Medical History / Comment(s): R leg DVT, urinary retention, BPH with surgery, UTI with sepsis, bladder stones with surgery, chronic anemia, chronic low back pain, neuropathy R foot, recent sinus problems. Recent history of discitis T 1112 with active IV antibiotic treatment History of Any Multi-Drug Resistant Organisms: None Reported Past Surgical History: Appendectomy, Heart Catheterization, Heart Catheterizat ion With Stent, Prostate Surgery Additional Past Surgical History / Comment(s): Bladder stone removal 03/2018, TURVP, colonoscopy, cardiac caths with last one done 01/25/19 treat medically. Past Anesthesia/Blood Transfusion Reactions: No Reported Reaction Date of Last Stent Placement:: February 23, 2018 Past Psychological History: No Psychological Hx Reported Additional Psychological History / Comment(s): Pt resides with his spouse. He uses no assistive device but they do own a cane and a walker. 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 Smoking Status: Never smoker Past Alcohol Use History: None Reported Past Drug Use History: None Reported - Past Family History Father Family Medical History: No Reported History Additional Family Medical History / Comment(s): Father was healthy and lived to be 95 yrs old. Mother Family Medical History: Hypertension Additional Family Medical History / Comment(s): Mother of a brain tumor at the age of 75yrs. Pt states they never found out if it was cancerous. Medications and Allergies Home Medications Medication Instructions Recorded Confirmed Type Aspirin 81 mg PO DAILY #30 chew 02/24/18 05/06/19 Rx Clopidogrel [Plavix] 75 mg PO DAILY #30 tab 02/24/18 05/06/19 Rx Furosemide [Lasix] 40 mg PO DAILY tab 02/23/19 05/06/19 Rx Atorvastatin [Lipitor] 80 mg PO DAILY 05/06/19 05/06/19 History Allergies Allergy/AdvReac Type Severity Reaction Status Date / Time No Known Allergies Allergy Verified 05/05/19 17:18 Physical Examination Osteopathic Statement: *. No significant issues noted on an osteopathic structural exam other than those noted in the History and Physical/Consult. - L Spine: dermatomal strength & reflexes bilateral Strength: hip flexion: 5/5 (At the patient's thoracic and lumbar spine there is no open wounds lacerations or abrasions. He is able get in and out of bed adequately. He is no pain with palpation of the midline as some paravertebral spasm and soreness globally. His chest has good excursion deep and space expiration abdomen soft nontender. His lower extremities have sustained dorsal flexion plantarflexion and extensor hallucis longus intact. He has 5 over 5 strength throughout. No pain with internal/external rotation of his hips. His no saddle paresthesias.) Results - Labs Labs: Abnormal Lab Results - Last 24 Hours (Table) 05/05/19 05/05/19 05/06/19 Range/Units 18:27 18:27 06:43 RBC 3.77 L (4.30-5.90) m/uL Hgb 10.1 L (13.0-17.5) gm/dL Hct 32.1 L (39.0-53.0) % RDW 15.9 H (11.5-15.5) % ESR 56 H (0-15) mm/hr Chloride 111 H (98-107) mmol/L BUN 34 H (9-20) mg/dL Creatinine 1.54 H (0.66-1.25) mg/dL Glucose 103 H (74-99) mg/dL ALT 20 L (21-72) U/L H & H 05/05/19 Range/Units 18:27 Hgb 10.1 L (13.0-17.5) gm/dL Hct 32.1 L (39.0-53.0) % Coagulation 05/05/19 Range/Units 18:27 INR 1.1 (<1.2) Result Diagrams: 05/05/19 18:27 05/05/19 18:27 - Diagnostic results Lumbar MRI with contrast: report reviewed, image reviewed (There is a thoracic MRI done here on 05/05/2019 which I reviewed the images and the report. There appears to be evidence of a chronic discitis at T 11/T12. There is no significant fluid within the disc. There is some wedging deformities at T11 and T12. There is no edema within the vertebral bodies. There is no evidence of neural compression. There is no evidence of abscess.) Assessment and Plan Assessment: Subacute discitis T11-T12 which appears to be making adequate progress with antibiotic treatment. Thoracic or lumbar back pain, chronic No neurologic changes Recent history of urosepsis Compression deformities T11 and T12 Plan: Subacute discitis T11-T12 which appears to be making adequate progress with antibiotic treatment. Thoracic or lumbar back pain, chronic No neurologic changes Recent history of urosepsis Compression deformities T11 and T12 The patient has been treated over the past 2 months for his discitis at T11 and T12. His inflammatory markers have not responded as well as they would have expected and the follow-up MRI was completed. There is some compression of the wedging at T11 and T12 however the disc itself appears to be healing appropriately. There is no significant fluid within the disc or significant edema within the vertebral bodies to suggest worsening infection or inflammation. There is no evidence of abscess and there is no significant spinal cord compromise. He is not having any neurologic decline. It seems that the antibiotic has been working appropriately in terms of improving the status of the discitis infection. I discussed this with Dr. Cooper. I do not think that he requires any surgical intervention. He has been able to mobilize well and I think that is okay for him to continue to mobilize without bracing at this point. He is not having neurologic decline and we didn't have any plans for surgical intervention. Depending on infectious disease decision it is okay to convert oral over to oral medications or continue IV medications as they see fit. I discussed this with the patient and his daughter. From an orthopedic spine standpoint is okay for them to discharge when he stable from infectious disease and he can follow-up with our office in approximately 2 weeks' time for recheck evaluation. I tried answered the patient's questions to the best my ability in a language that they can can understand and they are agreeable.
--- NOTE | 2019-05-06 12:04 | P.HPIM ---
History of Present Illness Patient is a pleasant a 72-year-old gentleman well-known to me is being treated for discitis and dysuria reported a couple months of for daptomycin MRI was obtained which showed worsening as per the radiologist's reading. Because of which patient was admitted to the hospital. Patient was started on daptomycin. Patient denied any symptoms patient still has back pain when he on the legs but much better than it was. Patient was evaluated by Dr. Buckner spinal surgeon and the the MRI images were reviewed by Dr. Cooper with the radiologist and apparently there is an improvement and expected changes in his discitis. Patient is clinically doing well no fever no signs or symptoms of sepsis. Discussed with infectious disease patient was started on oral anti-Videx will be discharged home. Patient is only taking extra strength Tylenol for pain which will be continued Review of Systems REVIEW OF SYSTEMS: CONSTITUTIONAL: No fever, no malaise, no fatigue. HEENT: No recent visual problems or hearing problems. Denied any sore throat. CARDIOVASCULAR: No chest pain, orthopnea, PND, no palpitations, no syncope. PULMONARY: No shortness of breath, no cough, no hemoptysis. GASTROINTESTINAL: No diarrhea, no nausea, no vomiting, no abdominal pain. NEUROLOGICAL: No headaches, no weakness, no numbness. HEMATOLOGICAL: Denies any bleeding or petechiae. GENITOURINARY: Denies any burning micturition, frequency, or urgency. MUSCULOSKELETAL/RHEUMATOLOGICAL: Denies any joint pain, swelling, or any muscle pain. ENDOCRINE: Denies any polyuria or polydipsia. The rest of the 14-point review of systems is negative. Past Medical History Past Medical History: Coronary Artery Disease (CAD), Heart Failure, Deep Vein Thrombosis (DVT), Hyperlipidemia, Pneumonia, Prostate Disorder, Pulmonary Embolus (PE) Additional Past Medical History / Comment(s): R leg DVT, urinary retention, BPH with surgery, UTI with sepsis, bladder stones with surgery, chronic anemia, chronic low back pain, neuropathy R foot, recent sinus problems. Recent history of discitis T 1112 with active IV antibiotic treatment History of Any Multi-Drug Resistant Organisms: None Reported Past Surgical History: Appendectomy, Heart Catheterization, Heart Catheterization With Stent, Prostate Surgery Additional Past Surgical History / Comment(s): Bladder stone removal 03/2018, TURVP, colonoscopy, cardiac caths with last one done 01/25/19 treat medically. Past Anesthesia/Blood Transfusion Reactions: No Reported Reaction Date of Last Stent Placement:: February 23, 2018 Past Psychological History: No Psychological Hx Reported Additional Psychological History / Comment(s): Pt resides with his spouse. He uses no assistive device but they do own a cane and a walker. 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 Smoking Status: Never smoker Past Alcohol Use History: None Reported Past Drug Use History: None Reported - Past Family History Father Family Medical History: No Reported History Additional Family Medical History / Comment(s): Father was healthy and lived to be 95 yrs old. Mother Family Medical History: Hypertension Additional Family Medical History / Comment(s): Mother of a brain tumor at the age of 75yrs. Pt states they never found out if it was cancerous. Medications and Allergies Home Medications Medication Instructions Recorded Confirmed Type Aspirin 81 mg PO DAILY #30 chew 02/24/18 05/06/19 Rx Clopidogrel [Plavix] 75 mg PO DAILY #30 tab 02/24/18 05/06/19 Rx Furosemide [Lasix] 40 mg PO DAILY tab 02/23/19 05/06/19 Rx Amoxicillin 500 mg PO Q8H #42 capsule 05/06/19 Rx Atorvastatin [Lipitor] 80 mg PO DAILY 05/06/19 05/06/19 History Allergies Allergy/AdvReac Type Severity Reaction Status Date / Time No Known Allergies Allergy Verified 05/05/19 17:18 Physical Exam Vitals: Vital Signs Temp Pulse Pulse Resp BP BP Pulse Ox 05/06/19 08:00 50 L 16 05/06/19 07:10 97.7 F 50 L 16 144/75 98 05/06/19 01:25 98.0 F 46 L 17 147/71 98 05/05/19 22:16 97.7 F 50 L 17 143/65 97 05/05/19 19:43 54 L 18 150/86 100 05/05/19 17:15 98.3 F 57 L 16 115/64 96 Intake and Output 05/05/19 05/06/19 05/06/19 22:59 06:59 14:59 Intake Total 340 Output Total 675 Balance 340 -675 Intake: Intake, IV Titration 100 Amount DAPTOmycin 500 mg In 50 Sodium Chloride 0.9% 50 ml @ 100 mls/hr IVPB HS MARTÍN Rx#:[id number] cefTRIAXone 2 gm In 50 Sodium Chloride 0.9% 50 ml @ 100 mls/hr IVPB ONCE STA Rx#:[id number] Oral 240 Output: Urine 675 Other: Weight 92.986 kg 93.1 kg PHYSICAL EXAMINATION: GENERAL: The patient is alert and oriented x3, not in any acute distress. Well developed, well nourished. HEENT: Pupils are round and equally reacting to light. EOMI. No scleral icterus. No conjunctival pallor. Normocephalic, atraumatic. No pharyngeal erythema. No thyromegaly. CARDIOVASCULAR: S1 and S2 present. No murmurs, rubs, or gallops. PULMONARY: Chest is clear to auscultation, no wheezing or crackles. ABDOMEN: Soft, nontender, nondistended, normoactive bowel sounds. No palpable organomegaly. MUSCULOSKELETAL: No joint swelling or deformity. EXTREMITIES: No cyanosis, clubbing, or pedal edema. NEUROLOGICAL: Gross neurological examination did not reveal any focal deficits. SKIN: No rashes. Results CBC & Chem 7: 05/05/19 18:27 05/05/19 18:27 Labs: Abnormal Lab Results - Last 24 Hours (Table) 05/05/19 05/05/19 05/06/19 Range/Units 18:27 18:27 06:43 RBC 3.77 L (4.30-5.90) m/uL Hgb 10.1 L (13.0-17.5) gm/dL Hct 32.1 L (39.0-53.0) % RDW 15.9 H (11.5-15.5) % ESR 56 H (0-15) mm/hr Chloride 111 H (98-107) mmol/L BUN 34 H (9-20) mg/dL Creatinine 1.54 H (0.66-1.25) mg/dL Glucose 103 H (74-99) mg/dL ALT 20 L (21-72) U/L Thrombosis Risk Factor Assmnt - Choose All That Apply Any of the Below Risk Factors Present?: Yes Each Factor Represents 1 point: Heart failure (<1month) Other Risk Factors: Yes Each Risk Factor Represents 3 Points: Age 75 years or older, History of DVT/PE Thrombosis Risk Factor Assessment Total Risk Factor Score: 7 Thrombosis Risk Factor Assessment Level: High Risk Assessment and Plan Plan: Discitis subacute T11-T12 improving, patient will be discharged today. 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
--- NOTE | 2019-05-06 12:07 | P.DS ---
Providers Date of admission: 05/05/19 20:41 Attending physician: Rayshawn Pino MD Consults: 05/05/19 20:21 Consult Physician Routine Consulting Provider: Kuldeep Cooper Consult Reason/Comments: discitis, failure of outpatient treatment Do you want consulting provider notified?: Yes 05/05/19 20:41 Consult Physician Urgent Consulting Provider: Devante Buckner Consult Reason/Comments: diskitis Do you want consulting provider notified?: Yes Primary care physician: Wanda Jameson [facility] Course: As mentioned in HPI Patient Condition at Discharge: Fair Plan - Discharge Summary Discharge Rx Participant: No New Discharge Prescriptions: New Amoxicillin 500 mg PO Q8H #42 capsule Continue Aspirin 81 mg PO DAILY #30 chew Clopidogrel [Plavix] 75 mg PO DAILY #30 tab Atorvastatin [Lipitor] 80 mg PO DAILY Discontinued Furosemide [Lasix] 40 mg PO DAILY tab Discharge Medication List Aspirin 81 mg PO DAILY #30 chew 02/24/18 [Rx] Clopidogrel [Plavix] 75 mg PO DAILY #30 tab 02/24/18 [Rx] Amoxicillin 500 mg PO Q8H #42 capsule 05/06/19 [Rx] Atorvastatin [Lipitor] 80 mg PO DAILY 05/06/19 [History] Follow up Appointment(s)/Referral(s): Trino Muñoz MD [Primary Care Provider] - 1-2 days Kuldeep Cooper MD [STAFF PHYSICIAN] - 05/18/19 Ambulatory/Diagnostic Orders: Basic Metabolic Panel [LAB.AMB] Location: None Selected C Reactive Protein [LAB.AMB] Location: None Selected Comprehensive Metabolic Panel [LAB.AMB] Location: None Selected Erythrocyte Sedimentation Rate [LAB.AMB] Location: None Selected
[2019-05-06] MEDS: DAPTOmycin 500 MG in SODIUM CHLORIDE 0.9% 50 ML IVPB ONE ×2 (12:48→13:06)
[2019-05-06 14:42] VITALS: BP 115/67; PULSE 53; TEMP 97.5
[2019-05-07] MEDS ORDERED: CLOPIDOGREL 75 MG TAB PO SCH (09:00)
[2019-05-07] MEDS ORDERED: ASPIRIN 81 MG PO SCH (09:00)
[2019-05-07] MEDS ORDERED: ATORVASTATIN 80 MG TAB PO SCH (09:00)
== END 2019-05-06 14:58 | disposition home or self-care (01) | DRG 552 ==
LOC: EC 16:54 → 4SSUR 20:41
PROVIDERS: ADMIT Internal Medicine; ATTEND Internal Medicine
DX: M46.44 Discitis, unspecified, thoracic region (principal); N17.9 Acute kidney failure, unspecified; M48.54XA Collapsed vertebra, not elsewhere classified, thoracic region, initial encounter for fracture; E78.5 Hyperlipidemia, unspecified; I25.10 Atherosclerotic heart disease of native coronary artery without angina pectoris; I50.9 Heart failure, unspecified; G89.29 Other chronic pain; D64.9 Anemia, unspecified; G62.9 Polyneuropathy, unspecified; T50.1X5A Adverse effect of loop [high-ceiling] diuretics, initial encounter; Z86.718 Personal history of other venous thrombosis and embolism; Z87.01 Personal history of pneumonia (recurrent); Z87.440 Personal history of urinary (tract) infections; Z86.19 Personal history of other infectious and parasitic diseases; Z98.890 Other specified postprocedural states; Z79.82 Long term (current) use of aspirin; Z79.02 Long term (current) use of antithrombotics/antiplatelets; Z79.899 Other long term (current) drug therapy; Z86.711 Personal history of pulmonary embolism; Z95.5 Presence of coronary angioplasty implant and graft; Z82.49 Family history of ischemic heart disease and other diseases of the circulatory system
CPT/HCPCS: 36415; 80053; 83605; 85025; 85610; 85652; 85730; 86140; 87040; 93005; 96365; 96368; 99285

== ENCOUNTER → 2019-05-05 | Outpatient (CLI) | payer MEDICARE ==
--- NOTE | 2019-05-05 12:08 | MR ---
EXAMINATION TYPE: MR thoracic spine wo/w con DATE OF EXAM: 05/05/2019 COMPARISON: 02/17/2019 HISTORY: Discitis, unspecified, site unspecified CONTRAST: Performed utilizing 9.5 mL intravenous Gadavist gadolinium contrast. TECHNIQUE: Multiplanar, multiecho imaging on a 3.0 Sil magnet is performed through the thoracic spi ne. FINDINGS: There is loss of disc height T11-T12. There is superior endplate destruction of T12 and inf erior endplate destruction at T11. There is increasing wedge deformity of T11. There is enhancement t hrough this disc level. Endplate changes and residual disc material has moderate anterior thecal sac flattening. No cord contact is evident. No AP spinal canal stenosis present. Facet hypertrophy is pre sent. No abnormal enhancement within the spinal canal at this level. Spinal cord maintains normal signal through its visualized course. Remaining vertebral body heights appear preserved. There is diffuse disc space narrowing through the mid to lower thoracic spine. No spinal canal stenosis is evident. IMPRESSIONS: 1. Progression of wedge deformity of T11 with loss of the anterior vertebral body height. 2. Enhancement through the T11-12 disc level with some posterior wall and/or disc material impression on the intrathecal sac causing mild anterior thecal sac compression. No cord contact is evident. 3. Findings appear to be compatible with progression compression deformities with discitis at T11-12. A Red level critical message alert has been initiated for Kuldeep Cooper MD via the My Single Point Critical Results System on 05/05/2019 12:05 PM. This message alert has been sent to Kuldeep Cooper MD v ia the preferences provided by the clinician for the receipt of Radiology Critical Findings. Message ID [id number].
== END ==
LOC: RADMRIMAIN 09:30
PROVIDERS: ATTEND Internal Medicine Infectious Disease
DX: M43.8X4 Other specified deforming dorsopathies, thoracic region (principal); G95.29 Other cord compression
CPT/HCPCS: 72157; A9585

== ENCOUNTER 2019-10-05 07:27 | Day surgery (SDC) | payer MEDICARE ==
[2019-10-04 09:14] VITALS: BMI 32.5
[~2019-10-05 07:27] MED LIST changes: -AMPICILLIN 1,000 MG in SODIUM CHLORIDE 0.9% 50 ML IVPB ONE; +DEXAMETHASONE SOD PHOSPHATE 10 MG/ML 1 ML VIAL IV ONE; -GENTAMICIN 140 MG in SODIUM CHLORIDE 0.9% 100 ML IVPB ONE; +HEPARIN SODIUM,PORCINE 5,000 UNIT/ML 1 ML VIAL SQ ONE; -HYDROmorphone 0.5 MG/0.5 ML SYRINGE IVP PRN; +MIDAZOLAM 2 MG/2 ML VIAL IV PRN; +SCOPOLAMINE 1.5MG/72HR PATCH TRANSDERM ONE
[2019-10-05] MEDS ORDERED: LIDOCAINE 1% 20 ML VIAL (10MG/ML) FOR IV START INTRADERMA ONE (08:20)
[2019-10-05] MEDS: LACTATED RINGERS 1,000 ML IV SCH ×2 (08:20→09:24)
[2019-10-05] MEDS ORDERED: fentaNYL (PF) 50 MCG/ML 2 ML AMP IV ONE (08:34)
--- NOTE | 2019-10-05 08:57 | P.GSHP ---
History of Present Illness H&P Date: 10/05/19 Chief Complaint: Left inguinal hernia This a 79-year-old male who presents today for laparoscopic robotic-assisted repair of left internal hernia. Patient developed a tender mass in his left groin. Past Medical History Past Medical History: Coronary Artery Disease (CAD), Heart Failure, Deep Vein Thrombosis (DVT), Hyperlipidemia, Pneumonia, Prostate Disorder, Pulmonary Embolus (PE) Additional Past Medical History / Comment(s): R leg DVT, urinary retention, BPH with surgery, UTI with sepsis, bladder stones with surgery, chronic anemia, chronic low back pain, neuropathy R foot, recent sinus problems. Recent history of discitis T 1112 with active IV antibiotic treatment History of Any Multi-Drug Resistant Organisms: ESBL Date of last positivie culture/infection: 05/17/19 MDRO Source:: ESBL URINE Past Surgical History: Appendectomy, Heart Catheterization, Heart Catheterization With Stent, Prostate Surgery Additional Past Surgical History / Comment(s): Bladder stone removal 03/2018, TURP, colonoscopy, . Past Anesthesia/Blood Transfusion Reactions: No Reported Reaction Date of Last Stent Placement:: January 2019 Smoking Status: Never smoker - Past Family History Father Family Medical History: No Reported History Additional Family Medical History / Comment(s): Father was healthy and lived to be 95 yrs old. Mother Family Medical History: Hypertension Additional Family Medical History / Comment(s): Mother of a brain tumor at the age of 75yrs. Pt states they never found out if it was cancerous. Medications and Allergies Home Medications Medication Instructions Recorded Confirmed Type Aspirin 81 mg PO DAILY #30 chew 02/24/18 10/04/19 Rx Clopidogrel [Plavix] 75 mg PO DAILY #30 tab 02/24/18 10/04/19 Rx Atorvastatin [Lipitor] 80 mg PO DAILY 05/06/19 10/04/19 History Tamsulosin HCl [Flomax] 0.4 mg PO DAILY 10/04/19 10/04/19 History Allergies Allergy/AdvReac Type Severity Reaction Status Date / Time No Known Allergies Allergy Verified 10/05/19 07:59 Surgical - Exam Vital Signs Temp Pulse Resp BP Pulse Ox 97.9 F 45 L 16 177/86 98 10/05/19 08:04 10/05/19 08:04 10/05/19 08:04 10/05/19 08:04 10/05/19 08:04 - General well developed, well nourished, no distress - Eyes PERRL - ENT normal pinna - Neck no masses - Respiratory normal expansion - Cardiovascular Rhythm: regular - Abdomen Abdomen: soft, non tender Assessment and Plan Assessment: Left inguinal hernia. We'll perform laparoscopic robotic-assisted repair.
--- NOTE | 2019-10-05 09:20 | P.ANPRN ---
Procedure Note - Anesthesia - Nerve Block Performed Bilateral Transversus Abdominis Single Time Out Performed: Yes Date of Procedure: 10/05/19 Procedure Start Time: 08:34 Procedure Stop Time: 08:44 Location of Patient Procedure: PreOp Indication: Acute Post-Operative Pain, Requested by Surgeon Sedation Type: Sedate with meaningful contact maintained Preparation: Sterile Prep Position: Supine Catheter: None Needle Types: Pajunk Needle Gauge: 21 Ultrasound used to visualize needle placement: Yes Ultrasound used to observe medication spread: Yes Injectate: 0.5% Ropivacaine (see comment for volume) (Ropivacaine 0.5% 20 mL plus Decadron 4 mg per side) Blood Aspirated: No Pain Paresthesia on Injection Noted: No Resistance on Injection: Normal Image Stored and Saved: Yes Events: Uneventful and Well Tolerated
[2019-10-05] MEDS ORDERED: ROCURONIUM BROMIDE 10 MG/ML 10 ML VIAL IV ONE (09:25)
[2019-10-05] MEDS ORDERED: MIDAZOLAM 2 MG/2 ML VIAL ONE (09:25)
[2019-10-05] MEDS ORDERED: LIDOCAINE 1% INJ 10MG/ML (20 ML MDV) ONE (09:25)
[2019-10-05] MEDS ORDERED: GLYCOPYRROLATE 0.2 MG/ML 2 ML VIAL ONE (09:25)
[2019-10-05] MEDS ORDERED: PROPOFOL 10 MG/ML 20 ML VIAL IV ONE (09:25)
[2019-10-05] MEDS ORDERED: ROPIVACAINE 5 MG/ML 30 ML VIAL ONE (09:25)
[2019-10-05] MEDS ORDERED: PHENYLEPHRINE-0.9% NACL SYG 1 MG/10 ML SYRINGE ONE (09:25)
[2019-10-05] MEDS ORDERED: fentaNYL (PF) 50 MCG/ML 2 ML AMP ONE (09:25)
[2019-10-05] MEDS ORDERED: NEOSTIGMINE 1 MG/ML 10 ML VIAL ONE (09:25)
[2019-10-05] MEDS ORDERED: DEXAMETHASONE SOD PHOSPHATE 4 MG/ML 1 ML VIAL ONE (09:25)
[2019-10-05] MEDS ORDERED: KETAMINE 10 MG/ML 20 ML VIAL ONE (09:25)
[2019-10-05] MEDS ORDERED: BUPIVACAINE (PF) 0.25% 30 ML VIAL SQ ONE (09:49)
--- NOTE | 2019-10-05 10:22 | P.OP ---
Date of Procedure: 10/05/19 Preoperative Diagnosis: Left inguinal hernia Postoperative Diagnosis: Left inguinal hernia Procedure(s) Performed: Laparoscopic robotic system repair of left inguinal hernia Anesthesia: ALTA Surgeon: Angel Patel Estimated Blood Loss (ml): 5 Pathology: none sent Condition: stable Disposition: PACU Description of Procedure: MThe patient's placed on the operating table in the supine position. The patient received general anesthesia. The patient's abdomen was prepped and draped in usual sterile fashion. The skin was anesthetized 1% local Xylocaine at the incision sites. Using an 11 blade a skin incision was made at the umbilicus. The fascia was grasped with a Nidia and then the peritoneal cavity was entered with the Veress needle. Position of the Veress needle was confirmed with a positive drop test. After adequate insufflation a 5 mm trocar was placed into the peritoneal cavity. The Laparoscope was placed the peritoneal cavity. And a robotic 8 mm trocar was placed in the right lateral position and then another 8 mm robotic trochars placed in the left lateral position. The original 5 mm trocar was exchanged for a 12 mm trocar. The patient was placed in reverse Trendelenburg and then the patient was docked to the robot. Next the peritoneum over top of the hernia was incised and then using blunt and sharp dissection and electrocautery the hernia sac was dissected free from the floor of the inguinal canal. The hernia sac was completely reduced into the peritoneal cavity. And then using the Pro regional rehabilitation director mesh the hernia was repaired. The peritoneum was then sutured with 20V lock suture. The patient was then undocked the robot. The needle was withdrawn from the peritoneal cavity. The umbilical trocar site was closed with 0 Ethibond suture. The skin was closed interrupted 3-0 Monocryl suture. Dermabond dressing was applied. Patient was sent to recovery in stable condition.
[2019-10-05 10:33] VITALS: TEMP 96.8
[2019-10-05 10:39] VITALS: RESP 16
[2019-10-05] MEDS: HYDROmorphone 0.5 MG/0.5 ML SYRINGE IVP PRN ×2 (10:50→10:57)
[2019-10-05] MEDS ORDERED: TAMSULOSIN 0.4 MG CAP.ER.24H PO ONE (11:24)
[2019-10-05] MEDS ORDERED: HYDROcodone/APAP 5-325MG 1 EACH TAB PO ONE (11:44)
[2019-10-05 12:53] VITALS: BP 123/79; PULSE 46
== END 2019-10-05 13:52 | disposition home or self-care (01) ==
LOC: OR 07:27
PROVIDERS: ATTEND Surgery
DX: K40.90 Unilateral inguinal hernia, without obstruction or gangrene, not specified as recurrent (principal); I25.10 Atherosclerotic heart disease of native coronary artery without angina pectoris; I50.9 Heart failure, unspecified; E78.5 Hyperlipidemia, unspecified; N40.0 Benign prostatic hyperplasia without lower urinary tract symptoms; Z87.01 Personal history of pneumonia (recurrent); Z86.711 Personal history of pulmonary embolism; Z86.718 Personal history of other venous thrombosis and embolism; R33.9 Retention of urine, unspecified; D64.9 Anemia, unspecified; G89.29 Other chronic pain; M54.5 Low back pain; G62.9 Polyneuropathy, unspecified; M46.40 Discitis, unspecified, site unspecified; Z86.19 Personal history of other infectious and parasitic diseases; Z95.5 Presence of coronary angioplasty implant and graft; Z82.49 Family history of ischemic heart disease and other diseases of the circulatory system; Z79.02 Long term (current) use of antithrombotics/antiplatelets; Z79.82 Long term (current) use of aspirin; Z79.899 Other long term (current) drug therapy; N28.9 Disorder of kidney and ureter, unspecified; Z87.440 Personal history of urinary (tract) infections; Z97.2 Presence of dental prosthetic device (complete) (partial)
CPT/HCPCS: 64488; 49650; C1781; J2250; J1644; J1100 ×2; J2710; J0690; J2405; J2001; J3010; J2795; J2370; J2704; J1170

== ENCOUNTER → 2019-11-22 | Outpatient (CLI) | payer MEDICARE ==
--- NOTE | 2019-11-22 10:47 | CT ---
EXAMINATION TYPE: CT pelvis w con DATE OF EXAM: 11/22/2019 COMPARISON: 03/01/2019 HISTORY: Left sided groin pain for [address] DLP: 1330 mGycm CONTRAST: CT scan of the pelvis is performed with Oral Contrast and with IV Contrast, patient injected with 100 mL of Isovue 300. FINDINGS: LIVER/GB: Partially imaged liver demonstrates hypoattenuating lesions which are nonspecific and may r eflect cysts. PANCREAS: No inflammation. No distinct mass. SPLEEN: No splenic enlargement. No lesion seen. ADRENALS: No nodule. No thickening. KIDNEYS/BLADDER: Renal cystic changes identified. Nonobstructing calculus mid pole left kidney. Moder ate circumferential urinary bladder wall thickening is identified. Calculus again noted at the level of the left UPJ measuring 8 mm. No definite hydronephrosis. BOWEL: Normal appendix. Normal bowel caliber. No inflammation. GENITAL ORGANS: No gross abnormality. LYMPH NODES: No greater than 1cm abdominal or pelvic lymph nodes are appreciated. AORTA: No significant abnormality. OSSEOUS STRUCTURES: Severe degenerative change lumbar spine with vacuum disc at multiple levels. OTHER: No significant additional abnormality is seen. IMPRESSION: 1. Persistent urinary bladder wall thickening with calculus in the region of the left UVJ. No hydrone phrosis identified. 2. Renal cystic and hepatic cystic changes partially imaged. 3. Severe degenerative change lumbar spine with vacuum disc at multiple levels.
== END | disposition home or self-care (01) ==
LOC: RADCTMAIN 07:41
PROVIDERS: ATTEND Surgery
DX: N28.1 Cyst of kidney, acquired (principal); K76.89 Other specified diseases of liver
CPT/HCPCS: 82565; 84520; 72193; 36415; Q9967

== ENCOUNTER → 2019-11-26 | Outpatient (CLI) | payer MEDICARE ==
[2019-11-26 11:18] LABS: Anisocytosis Slight; Basophils % (A) 1 %; Eosinophils # (A) 0.2 k/uL (0-0.7); Eosinophils % (A) 3 %; HCT 35.9 % (39.0-53.0); Hypochromasia Slight; Lymphocytes # (A) 1.1 k/uL (1.0-4.8); Lymphocytes % (A) 22 %; MCHC 30.5 g/dL (31.0-37.0); MCV 88.5 fL (80.0-100.0); Mean Platelet Volume 7.8; Monocytes # (A) 0.6 k/uL (0-1.0); Monocytes % (A) 12 %; Neutrophils # (A) 3.1 k/uL (1.3-7.7); Neutrophils % (A) 60 %; Platelet Count 204 k/uL (150-450); RBC 4.06 m/uL (4.30-5.90); RDW 16.4 % (11.5-15.5); WBC 5.1 k/uL (3.8-10.6)
[2019-11-26 11:21] LABS: Potassium 3.9 mmol/L (3.5-5.1)
== END | disposition home or self-care (01) ==
LOC: LABPAT 10:28
PROVIDERS: ATTEND Urology
DX: Z01.812 Encounter for preprocedural laboratory examination (principal); N20.1 Calculus of ureter
CPT/HCPCS: 36415; 80048; 85025

== ENCOUNTER 2019-12-08 06:15 | Day surgery (SDC) | payer MEDICARE ==
[2019-12-03 10:13] VITALS: BMI 31.6
--- NOTE | 2019-12-07 19:41 | P.GSHP ---
History of Present Illness H&P Date: 12/07/19 79 yo gentleman sp inguinal hernia repair with persistent inguinal pain He had a fu ct scan identifying an 8 mm left uvj stone We discussed causes of groin pain Based on his description the pain sound more post surgical than stone related the patient wants the stone out He understands it may not relieve his pain He comes for a left ureteroscopy with lser lithotripsy. - Constitutional Constitutional: Denies chills, Denies fever - EENT Eyes: denies blurred vision, denies pain Ears, nose, mouth and throat: Denies headache, Denies sore throat - Cardiovascular Cardiovascular: Denies chest pain, Denies shortness of breath - Respiratory Respiratory: Denies cough, Denies 7 - Gastrointestinal Gastrointestinal: Denies abdominal pain, Denies diarrhea, Denies nausea, Denies vomiting - Genitourinary (Female) Genitourinary: Denies dysuria, Denies hematuria - Genitourinary (Male) Genitourinary: Denies dysuria, Denies hematuria - Musculoskeletal Musculoskeletal: Denies myalgias - Integumentary Integumentary: Denies pruritus, Denies rash - Neurological Neurological: Denies numbness, Denies weakness - Psychiatric Psychiatric: Denies anxiety, Denies depression - Endocrine Endocrine: Denies fatigue, Denies weight change Past Medical History Past Medical History: Coronary Artery Disease (CAD), Heart Failure, Deep Vein Thrombosis (DVT), Hyperlipidemia, Pneumonia, Prostate Disorder, Pulmonary Embolus (PE) Additional Past Medical History / Comment(s): UTI with sepsis, kidney stones , chronic anemia, chronic low back pain, neuropathy R foot, discitis with iv abx History of Any Multi-Drug Resistant Organisms: ESBL Date of last positivie culture/infection: 05/17/19 MDRO Source:: ESBL URINE Past Surgical History: Appendectomy, Heart Catheterization, Heart Catheterization With Stent, Prostate Surgery Additional Past Surgical History / Comment(s): Bladder stone removal 03/2018, TURP, colonoscopy, . Past Anesthesia/Blood Transfusion Reactions: No Reported Reaction Date of Last Stent Placement:: January 2019 Smoking Status: Never smoker - Past Family History Father Family Medical History: No Reported History Additional Family Medical History / Comment(s): Father was healthy and lived to be 95 yrs old. Mother Family Medical History: Hypertension Additional Family Medical History / Comment(s): Mother of a brain tumor at the age of 75yrs. Pt states they never found out if it was cancerous. Medications and Allergies Home Medications Medication Instructions Recorded Confirmed Type Aspirin 81 mg PO DAILY #30 chew 02/24/18 12/03/19 Rx Clopidogrel [Plavix] 75 mg PO DAILY #30 tab 02/24/18 12/03/19 Rx Atorvastatin [Lipitor] 80 mg PO DAILY 05/06/19 12/03/19 History Tamsulosin HCl [Flomax] 0.4 mg PO DAILY 10/04/19 12/03/19 History Allergies Allergy/AdvReac Type Severity Reaction Status Date / Time No Known Allergies Allergy Verified 12/03/19 10:08 Surgical - Exam - General well developed, well nourished, no distress - Eyes PERRL - ENT no hearing loss - Neck no masses - Respiratory normal expansion, normal respiratory effort - Cardiovascular Rhythm: regular - Abdomen Abdomen: soft, tender - Genitourinary normal penis with no external lesions, testicles present - Integumentary no rash, no growths - Neurologic normal coordination, normal sensation - Musculoskeletal normal gait, normal posture - Psychiatric oriented to time, oriented to person, oriented to place, speech is normal, memory intact Assessment and Plan Assessment: Impression: Left inguinal pain Left ureteral stone plan: Left ureteroscopy with laser lithotripsy
[~2019-12-08 06:15] MED LIST changes: +AMPICILLIN 1,000 MG in SODIUM CHLORIDE 0.9% 50 ML IVPB ONE; +GENTAMICIN 120 MG in SODIUM CHLORIDE 0.9% 100 ML IVPB ONE; -HEPARIN SODIUM,PORCINE 5,000 UNIT/ML 1 ML VIAL SQ ONE; +LACTATED RINGERS 1,000 ML IV SCH; -SCOPOLAMINE 1.5MG/72HR PATCH TRANSDERM ONE
[2019-12-08] MEDS ORDERED: LIDOCAINE 1% INJ 10MG/ML (20 ML MDV) ONE (07:22)
[2019-12-08] MEDS ORDERED: SUCCINYLCHOLINE CHLORIDE 100 MG/5 ML SYR IV ONE (07:22)
[2019-12-08] MEDS ORDERED: ePHEDrine SULFATE/0.9% NACL/PF 50 MG/5 ML SYRINGE IV ONE (07:22)
[2019-12-08] MEDS ORDERED: PROPOFOL 10 MG/ML 20 ML VIAL IV ONE (07:22)
[2019-12-08] MEDS ORDERED: MIDAZOLAM 2 MG/2 ML VIAL ONE (07:22)
[2019-12-08] MEDS ORDERED: fentaNYL (PF) 50 MCG/ML 2 ML AMP ONE (07:22)
[2019-12-08] MEDS ORDERED: IOPAMIDOL-370 50ML BTL MISCELLANE ONE (07:27)
[2019-12-08 08:38] VITALS: TEMP 97.6
--- NOTE | 2019-12-08 08:44 | P.OP ---
Date of Procedure: 12/08/19 Preoperative Diagnosis: Left inguinal pain, left ureteral calculus Postoperative Diagnosis: Left inguinal pain, impacted bladder calculus Procedure(s) Performed: Cystoscopy, left retrograde pyelogram, laser incision of bladder diverticular neck, laser lithotripsy to impacted bladder calculus, Hair catheter placement Anesthesia: BIBA Surgeon: Cam Ryan Estimated Blood Loss (ml): 0 Pathology: other (Stone) Condition: stable Disposition: PACU Indications for Procedure: The patient is 79. He had a left inguinal herniorrhaphy recently. He had persistent pain postoperatively. A computed tomography scan of the pelvis identified what appeared to be a distal ureteral stone on the left. The pain although it sounds more postsurgical persisted. Because of the x-ray findings we'll remove the stone to see if her relieves his pain. Description of Procedure: Patient is brought to the operating suite. He's placed on the operating table in supine position. He is given a successful general endotracheal anesthesia. He's placed lithotomy position with sterile prep and drape. Fluoroscopy identifies a calcification in the region of the distal ureter on the left consistent with the computed tomography scan. Cystoscopy Foroblique lens and 23-[place] sheath identifies a normal anterior urethra. The prostatic urethra shows previous resection. I entered the bladder wall shows severe trabeculation throughout. The left ureteral orifice was finally identified. Within a cone- tipped catheter retrograde pyelograms performed. The ureter is significantly J- hook. There is no filling defect in the ureter. There is narrowing of the distal ureter. The calcification seen on fluoroscopy appears to be just outside the ureter. I passed an 035 wire through the ureter and it passes without difficulty. Therefore I do not think there is any stone. Whether he passed a stone or not is difficult to say. I look into the bladder near the ureteral orifice and there is a stone impacted in a diverticulum near the left ureteral orifice. Whether this is the cause of the pain or not is difficult to say. I have to incise the neck of the diverticula on 2 sides in order to access the stone. The stone is about a centimeter. With the 365 probe and 6 mckeon of energy the stone was broken up into tiny pieces and flushed out of the bladder. I elect to place a Hair catheter for several days to allow the neck of the diverticulitis heal. A 16-[place] Hair catheters placed without difficulty. The patient's awake and returned recovery in good condition Impression:: successful removal of an impacted bladder stone in a diverticula. Normal retrograde pyelogram other than a J-hook ureter ureter. Plan: The catheter will remain in place till next Friday. This will allow the neck of the diverticula to heal.
[2019-12-08] MEDS: HYDROmorphone 0.5 MG/0.5 ML SYRINGE IVP PRN ×4 (08:46→09:22)
[2019-12-08] MEDS ORDERED: MIDAZOLAM 2 MG/2 ML VIAL IVP ONE (09:04)
[2019-12-08 09:35] VITALS: RESP 16
[2019-12-08] MEDS ORDERED: LACTATED RINGERS 1,000 ML IV ONE (09:35)
--- NOTE | 2019-12-08 09:35 | XR ---
EXAMINATION TYPE: XR KUB DATE OF EXAM: 12/08/2019 COMPARISON: 09/01/2018 HISTORY: Preop kidney stone TECHNIQUE: One view abdominal series FINDINGS: The osseous structures are intact. The bowel gas pattern is nonspecific. Bowel content obscures asse ssment for renal calcifications. Degenerative change of the spine noted. Calcification the pelvis joseph suring 8 mm is stable. Arthropathy of the hips with severe changes on the left. IMPRESSION: 1. Left hemipelvic calcification measuring 8 mm is stable.
[2019-12-08 10:07] VITALS: PULSE 61
[2019-12-08 10:35] VITALS: BP 150/74
--- NOTE | 2019-12-08 10:41 | FL ---
EXAMINATION TYPE: FL urography retrograde DATE OF EXAM: 12/08/2019 COMPARISON: NONE HISTORY: Fluoroscopy TECHNIQUE: Fluoroscopy. FINDINGS: Fluoroscopic guidance was provided during procedure of 1 minute and 5 seconds. IMPRESSION: As Above.
== END 2019-12-08 10:58 | disposition home or self-care (01) ==
LOC: OR 06:15
PROVIDERS: ATTEND Urology
DX: N21.0 Calculus in bladder (principal); N32.89 Other specified disorders of bladder; I25.10 Atherosclerotic heart disease of native coronary artery without angina pectoris; I50.9 Heart failure, unspecified; E78.5 Hyperlipidemia, unspecified; D53.9 Nutritional anemia, unspecified; G89.29 Other chronic pain; M54.5 Low back pain; N40.0 Benign prostatic hyperplasia without lower urinary tract symptoms; N20.1 Calculus of ureter; Z86.718 Personal history of other venous thrombosis and embolism; G62.9 Polyneuropathy, unspecified; Z87.01 Personal history of pneumonia (recurrent); Z86.711 Personal history of pulmonary embolism; Z87.440 Personal history of urinary (tract) infections; Z87.442 Personal history of urinary calculi; Z79.82 Long term (current) use of aspirin; Z79.02 Long term (current) use of antithrombotics/antiplatelets; Z79.899 Other long term (current) drug therapy; Z95.5 Presence of coronary angioplasty implant and graft
CPT/HCPCS: 82365; 74420; 74018; 52317; C1758; C1769 ×2; J2250; J1100; J2405; J2001; J3010; J1580; J0290; J0330; J2704; J1170; Q9967

== ENCOUNTER 2019-12-30 07:30 | Day surgery (SDC) | payer MEDICARE ==
[2019-12-29 12:42] VITALS: BMI 31.4
[2019-12-30 08:13] VITALS: RESP 16; TEMP 97.9
[2019-12-30 08:36] VITALS: BP 147/72; PULSE 52
== END 2019-12-30 08:36 | disposition home or self-care (01) ==
LOC: CATHCVL 07:30
PROVIDERS: ATTEND Internal Medicine Infectious Disease
DX: N39.0 Urinary tract infection, site not specified (principal); I25.10 Atherosclerotic heart disease of native coronary artery without angina pectoris; M46.40 Discitis, unspecified, site unspecified; I50.9 Heart failure, unspecified; E66.9 Obesity, unspecified; Z87.442 Personal history of urinary calculi; Z86.19 Personal history of other infectious and parasitic diseases; Z79.82 Long term (current) use of aspirin; Z79.02 Long term (current) use of antithrombotics/antiplatelets; Z79.899 Other long term (current) drug therapy; Z86.718 Personal history of other venous thrombosis and embolism; Z87.01 Personal history of pneumonia (recurrent); Z86.711 Personal history of pulmonary embolism; Z68.31 Body mass index [BMI] 31.0-31.9, adult
CPT/HCPCS: 36410; 76937; C1751

== ENCOUNTER → 2020-02-04 | Outpatient (CLI) | payer MEDICARE ==
[2020-02-04 11:55] LABS: HCT 36.2 % (39.0-53.0); HGB 11.7 gm/dL (13.0-17.5); MCH 28.6 pg (25.0-35.0); MCHC 32.2 g/dL (31.0-37.0); MCV 88.8 fL (80.0-100.0); Mean Platelet Volume 7.6; Platelet Count 236 k/uL (150-450); RBC 4.07 m/uL (4.30-5.90); RDW 15.5 % (11.5-15.5); WBC 6.6 k/uL (3.8-10.6)
[2020-02-04 16:20] LABS: African American GFR (CKD) 73.6 (60.0-200.0); Anion Gap 7.8 mmol/L (4.00-12.00); Carbon Dioxide 27.2 mmol/L (21.6-31.8); Non-African American GFR(CKD) 63.5 (60.0-200.0); Potassium 4.4 mmol/L (3.5-5.5)
[2020-02-05 16:47] LABS: % Iron Saturation 10.06 (15.00-50.00)
== END | disposition home or self-care (01) ==
LOC: LABWHC1 10:33
PROVIDERS: ATTEND Internal Medicine Cardiovascular Disease
DX: E03.9 Hypothyroidism, unspecified (principal); R06.02 Shortness of breath
CPT/HCPCS: 36415; 80051; 82565; 83540; 83550; 83880; 84443; 84520; 85027

== ENCOUNTER 2020-05-08 18:39 | Inpatient (IN) | payer MEDICARE ==
--- NOTE | 2020-05-08 19:02 | ED ---
Dizziness HPI - General Chief Complaint: Dizziness Stated Complaint: weakness, dizzy Time Seen by Provider: 05/08/20 18:55 Source: patient, family, RN notes reviewed, old records reviewed Mode of arrival: wheelchair Limitations: no limitations - History of Present Illness Initial Comments: This is a 79-year-old male To the ER for evaluation persistent weakness and persistent chest pain and history of heart disease not feeling well significant weakness. Patient scheduled for heart catheterization on Friday. Patient is appears cough or congestion no recent travel history no sick contacts MD Complaint: dizziness, lightheadedness -: days(s) Timing: gradual onset, intermittent, waxing/waning Description: nausea, other (Chest pain) History of Same: Yes History of Trauma: No Severity: mild Worsens With: nothing Associated Symptoms: chest pain, loss of appetite, shortness of breath, weakness - Related Data Home Medications Medication Instructions Recorded Confirmed Atorvastatin [Lipitor] 80 mg PO DAILY 05/06/19 05/08/20 Furosemide [Lasix] 40 mg PO DAILY 05/08/20 05/08/20 Isosorbide Dinitrate 30 mg PO DAILY 05/08/20 05/08/20 Previous Rx's Medication Instructions Recorded Aspirin 81 mg PO DAILY #30 chew 02/24/18 Allergies Allergy/AdvReac Type Severity Reaction Status Date / Time No Known Allergies Allergy Verified 05/08/20 19:36 Review of Systems ROS Statement: Those systems with pertinent positive or pertinent negative responses have been documented in the HPI. ROS Other: All systems not noted in ROS Statement are negative. Past Medical History Past Medical History: Coronary Artery Disease (CAD), Heart Failure, Deep Vein Thrombosis (DVT), Hyperlipidemia, Pneumonia, Prostate Disorder, Pulmonary Embolus (PE) Additional Past Medical History / Comment(s): recurrent UTIs,UTI with sepsis, bladder stones and kidney stones, chronic anemia, chronic low back pain, neuropathy R foot,discitis T 11 12 w/ iv abx History of Any Multi-Drug Resistant Organisms: ESBL Date of last positivie culture/infection: 12/20/19 ESBL Klebsiella MDRO Source:: Urine Past Surgical History: Appendectomy, Heart Catheterization, Heart Catheterization With Stent, Prostate Surgery Additional Past Surgical History / Comment(s): lithotripsy 12-08-19,Bladder stone removal 03/2018, TURP, colonoscopy, . Past Anesthesia/Blood Transfusion Reactions: No Reported Reaction Date of Last Stent Placement:: January 2019 Past Psychological History: No Psychological Hx Reported Smoking Status: Never smoker Past Alcohol Use History: None Reported Past Drug Use History: None Reported - Past Family History Father Family Medical History: No Reported History Additional Family Medical History / Comment(s): Father was healthy and lived to be 95 yrs old. Mother Family Medical History: Hypertension Additional Family Medical History / Comment(s): Mother of a brain tumor at the age of 75yrs. Pt states they never found out if it was cancerous. General Exam Limitations: no limitations General appearance: alert, in no apparent distress Head exam: Present: atraumatic, normocephalic, normal inspection Eye exam: Present: normal appearance, PERRL, EOMI. Absent: scleral icterus, conjunctival injection, periorbital swelling ENT exam: Present: normal exam, mucous membranes moist Neck exam: Present: normal inspection. Absent: tenderness, meningismus, lymphadenopathy Respiratory exam: Present: normal lung sounds bilaterally. Absent: respiratory distress, wheezes, rales, rhonchi, stridor Cardiovascular Exam: Present: regular rate, normal rhythm, normal heart sounds. Absent: systolic murmur, diastolic murmur, rubs, gallop, clicks GI/Abdominal exam: Present: soft, normal bowel sounds. Absent: distended, tenderness, guarding, rebound, rigid Extremities exam: Present: normal inspection, full ROM, normal capillary refill. Absent: tenderness, pedal edema, joint swelling, calf tenderness Back exam: Present: normal inspection Neurological exam: Present: alert, oriented X3, CN II-XII intact Psychiatric exam: Present: normal affect, normal mood Skin exam: Present: warm, dry, intact, normal color. Absent: rash Course Vital Signs 05/08/20 18:51 Temperature 98 F Pulse Rate 63 Respiratory 18 Rate Blood Pressure 71/45 O2 Sat by Pulse 94 L Oximetry - Reevaluation(s) Reevaluation #1: 05/08/20 21:59 Medical record is reviewed Reevaluation #2: 05/08/20 21:59 Patient still having persistent chest pain - Consultations Consultation #1: Spoke with Dr. Dubon agreeable for admission EKG Findings - EKG Comments: EKG Findings:: EKG is sinus rhythm of 65. On a for QRS 116 QTc 544 Medical Decision Making - Lab Data Result diagrams: 05/08/20 19:04 05/08/20 19:04 Lab Results 05/08/20 05/08/20 05/08/20 Range/Units 19:04 19:04 19:04 WBC 12.9 H (3.8-10.6) k/uL RBC 3.31 L (4.30-5.90) m/uL Hgb 9.1 L (13.0-17.5) gm/dL Hct 28.1 L (39.0-53.0) % MCV 85.0 (80.0-100.0) fL MCH 27.5 (25.0-35.0) pg MCHC 32.3 (31.0-37.0) g/dL RDW 17.7 H (11.5-15.5) % Plt Count 255 (150-450) k/uL Neutrophils % 79 % Lymphocytes % 10 % Monocytes % 8 % Eosinophils % 0 % Basophils % 0 % Neutrophils # 10.2 H (1.3-7.7) k/uL Lymphocytes # 1.3 (1.0-4.8) k/uL Monocytes # 1.0 (0-1.0) k/uL Eosinophils # 0.0 (0-0.7) k/uL Basophils # 0.0 (0-0.2) k/uL Anisocytosis Slight PT 12.4 H (9.0-12.0) sec INR 1.2 H (<1.2) APTT 25.8 (22.0-30.0) sec Sodium 136 L (137-145) mmol/L Potassium 3.3 L (3.5-5.1) mmol/L Chloride 96 L (98-107) mmol/L Carbon Dioxide 31 H (22-30) mmol/L Anion Gap 9 mmol/L BUN 34 H (9-20) mg/dL Creatinine 1.53 H (0.66-1.25) mg/dL Est GFR (CKD-EPI)AfAm 49 (>60 ml/min/1.73 sqM) Est GFR (CKD-EPI)NonAf 43 (>60 ml/min/1.73 sqM) Glucose 118 H (74-99) mg/dL Lactic Ac Sepsis Rflx Plasma Lactic Acid Jensen (0.7-2.0) mmol/L Calcium 8.7 (8.4-10.2) mg/dL Phosphorus 3.2 (2.5-4.5) mg/dL Magnesium 2.2 (1.6-2.3) mg/dL Total Bilirubin 1.7 H (0.2-1.3) mg/dL AST 25 (17-59) U/L ALT 14 (4-49) U/L Alkaline Phosphatase 92 (38-126) U/L Troponin I (0.000-0.034) ng/mL NT-Pro-B Natriuret Pep pg/mL Total Protein 7.2 (6.3-8.2) g/dL Albumin 3.7 (3.5-5.0) g/dL 05/08/20 05/08/20 05/08/20 Range/Units 19:04 19:04 19:04 WBC (3.8-10.6) k/uL RBC (4.30-5.90) m/uL Hgb (13.0-17.5) gm/dL Hct (39.0-53.0) % MCV (80.0-100.0) fL MCH (25.0-35.0) pg MCHC (31.0-37.0) g/dL RDW (11.5-15.5) % Plt Count (150-450) k/uL Neutrophils % % Lymphocytes % % Monocytes % % Eosinophils % % Basophils % % Neutrophils # (1.3-7.7) k/uL Lymphocytes # (1.0-4.8) k/uL Monocytes # (0-1.0) k/uL Eosinophils # (0-0.7) k/uL Basophils # (0-0.2) k/uL Anisocytosis PT (9.0-12.0) sec INR (<1.2) APTT (22.0-30.0) sec Sodium (137-145) mmol/L Potassium (3.5-5.1) mmol/L Chloride (98-107) mmol/L Carbon Dioxide (22-30) mmol/L Anion Gap mmol/L BUN (9-20) mg/dL Creatinine (0.66-1.25) mg/dL Est GFR (CKD-EPI)AfAm (>60 ml/min/1.73 sqM) Est GFR (CKD-EPI)NonAf (>60 ml/min/1.73 sqM) Glucose (74-99) mg/dL Lactic Ac Sepsis Rflx Plasma Lactic Acid Jensen 2.5 H* (0.7-2.0) mmol/L Calcium (8.4-10.2) mg/dL Phosphorus (2.5-4.5) mg/dL Magnesium (1.6-2.3) mg/dL Total Bilirubin (0.2-1.3) mg/dL AST (17-59) U/L ALT (4-49) U/L Alkaline Phosphatase (38-126) U/L Troponin I 0.235 H* (0.000-0.034) ng/mL NT-Pro-B Natriuret Pep 3560 pg/mL Total Protein (6.3-8.2) g/dL Albumin (3.5-5.0) g/dL 05/08/20 Range/Units 19:48 WBC (3.8-10.6) k/uL RBC (4.30-5.90) m/uL Hgb (13.0-17.5) gm/dL Hct (39.0-53.0) % MCV (80.0-100.0) fL MCH (25.0-35.0) pg MCHC (31.0-37.0) g/dL RDW (11.5-15.5) % Plt Count (150-450) k/uL Neutrophils % % Lymphocytes % % Monocytes % % Eosinophils % % Basophils % % Neutrophils # (1.3-7.7) k/uL Lymphocytes # (1.0-4.8) k/uL Monocytes # (0-1.0) k/uL Eosinophils # (0-0.7) k/uL Basophils # (0-0.2) k/uL Anisocytosis PT (9.0-12.0) sec INR (<1.2) APTT (22.0-30.0) sec Sodium (137-145) mmol/L Potassium (3.5-5.1) mmol/L Chloride (98-107) mmol/L Carbon Dioxide (22-30) mmol/L Anion Gap mmol/L BUN (9-20) mg/dL Creatinine (0.66-1.25) mg/dL Est GFR (CKD-EPI)AfAm (>60 ml/min/1.73 sqM) Est GFR (CKD-EPI)NonAf (>60 ml/min/1.73 sqM) Glucose (74-99) mg/dL Lactic Ac Sepsis Rflx Y Plasma Lactic Acid Jensen (0.7-2.0) mmol/L Calcium (8.4-10.2) mg/dL Phosphorus (2.5-4.5) mg/dL Magnesium (1.6-2.3) mg/dL Total Bilirubin (0.2-1.3) mg/dL AST (17-59) U/L ALT (4-49) U/L Alkaline Phosphatase (38-126) U/L Troponin I (0.000-0.034) ng/mL NT-Pro-B Natriuret Pep pg/mL Total Protein (6.3-8.2) g/dL Albumin (3.5-5.0) g/dL Critical Care Time Critical Care Time: Yes Total Critical Care Time: 31 Disposition Clinical Impression: Unstable angina, Chest pain, NSTEMI (non-ST elevated myocardial infarction) Disposition: ADMITTED IP TO THIS HOSP Condition: Serious Is patient prescribed a controlled substance at d/c from ED?: No Referrals: Trino Muñoz MD [Primary Care Provider] - 1-2 days
[2020-05-08] MEDS ORDERED: SODIUM CHLORIDE 0.9% 1,000 ML IV ONE (19:10)
[2020-05-08] MEDS ORDERED: SODIUM CHLORIDE 0.9% 1,000 ML IV STA (19:13)
[2020-05-08 19:25] LABS: Anisocytosis Slight; Basophils % (A) 0 %; Eosinophils % (A) 0 %; HCT 28.1 % (39.0-53.0); HGB 9.1 gm/dL (13.0-17.5); Lymphocytes # (A) 1.3 k/uL (1.0-4.8); Lymphocytes % (A) 10 %; MCH 27.5 pg (25.0-35.0); MCHC 32.3 g/dL (31.0-37.0); Mean Platelet Volume 7.2; Monocytes % (A) 8 %; Neutrophils # (A) 10.2 k/uL (1.3-7.7); Neutrophils % (A) 79 %; Platelet Count 255 k/uL (150-450); RBC 3.31 m/uL (4.30-5.90); RDW 17.7 % (11.5-15.5); WBC 12.9 k/uL (3.8-10.6)
[2020-05-08 19:32] LABS: Albumin 3.7 g/dL (3.5-5.0); Calcium 8.7 mg/dL (8.4-10.2); Magnesium 2.2 mg/dL (1.6-2.3); Phosphorus 3.2 mg/dL (2.5-4.5); Potassium 3.3 mmol/L (3.5-5.1); Total Bilirubin 1.7 mg/dL (0.2-1.3); Total Protein 7.2 g/dL (6.3-8.2)
[2020-05-08 19:42] LABS: INR 1.2 (<1.2); Partial Thromboplastin Time 25.8 sec (22.0-30.0); Prothrombin Time 12.4 sec (9.0-12.0)
--- NOTE | 2020-05-08 19:48 | XR ---
EXAMINATION TYPE: XR chest 2V DATE OF EXAM: 05/08/2020 COMPARISON: 02/21/2019 HISTORY: Weakness TECHNIQUE: FINDINGS: There is some linear density at the left lung base. Right lung is clear. There is no heart failure. Heart size is normal. Thoracic aorta is atheromatous. There is no evidence of pleural effusi on. IMPRESSION: There is some mild atelectasis left lung base improved compared to old exam. No heart emanuel lure seen.
[2020-05-08] MEDS ORDERED: NITROGLYCERIN SL TABS 0.4 MG TAB SUBLINGUAL PRN (21:48)
[2020-05-08] MEDS ORDERED: HEPARIN SODIUM,PORCINE 5,000 UNIT/ML 1 ML VIAL IV ONE (21:48)
[2020-05-08] MEDS ORDERED: MORPHINE SULFATE 4 MG/ML SYRINGE IV PRN (21:53)
[2020-05-08] MEDS ORDERED: HEPARIN SODIUM,PORCINE 5,000 UNIT/ML 1 ML VIAL IV PRN (21:53)
[2020-05-08] MEDS ORDERED: HEPARIN SOD,PORK IN 0.45% NACL 25,000 UNIT in 0.45% NACL 1 250ML.BAG IV SCH (22:00)
[2020-05-08] MEDS ORDERED: ALPRAZolam 0.25 MG TAB PO PRN (23:29)
[2020-05-08] MEDS ORDERED: HYDROcodone/APAP 5-325MG 1 EACH TAB PO PRN (23:29)
[2020-05-09 00:48] LABS: Appearance,Urine Cloudy (Clear); Bilirubin,Urine Negative (Negative); Blood,Urine Trace (Negative); Color,Urine Yellow; Glucose,Urine (UA) Negative (Negative); Ketones,Urine Negative (Negative); Leukocyte Esterase,Urine Large (Negative); Mucus,Urine Rare /hpf; Nitrite,Urine Negative (Negative); Protein,Urine Trace (Negative); RBC,Urine 4 /hpf (0-5); Specific Gravity,Urine 1.013 (1.001-1.035); Urobilinogen,Urine <2.0 mg/dL (<2.0); WBC,Urine >182 /hpf (0-5)
[2020-05-09 00:55] LABS: Glucose,Whole Blood 140 mg/dL (75-99)
[2020-05-09 03:59] LABS: Anisocytosis Slight; Basophils % (A) 0 %; Eosinophils # (A) 0.1 k/uL (0-0.7); Eosinophils % (A) 1 %; HCT 27.8 % (39.0-53.0); HGB 8.7 gm/dL (13.0-17.5); Lymphocytes # (A) 1.4 k/uL (1.0-4.8); Lymphocytes % (A) 13 %; MCHC 31.3 g/dL (31.0-37.0); MCV 86.5 fL (80.0-100.0); Mean Platelet Volume 7.1; Monocytes # (A) 0.8 k/uL (0-1.0); Monocytes % (A) 8 %; Neutrophils # (A) 7.7 k/uL (1.3-7.7); Neutrophils % (A) 75 %; Platelet Count 206 k/uL (150-450); RBC 3.22 m/uL (4.30-5.90); RDW 17.9 % (11.5-15.5); WBC 10.3 k/uL (3.8-10.6)
[2020-05-09 04:16] LABS: Albumin 3.1 g/dL (3.5-5.0); Calcium 8.1 mg/dL (8.4-10.2); Potassium 3.4 mmol/L (3.5-5.1); Total Bilirubin 1.7 mg/dL (0.2-1.3); Total Protein 6.5 g/dL (6.3-8.2)
--- NOTE | 2020-05-09 04:48 | HP ---
HISTORY AND PHYSICAL DATE OF SERVICE: 05/08/2020 CHIEF COMPLAINTS: Chest pain and weakness. HISTORY OF PRESENT ILLNESS: This 79-year-old gentleman with a past medical history of multiple medical problems including history of CAD, history of CHF, DVT, hypertension, hyperlipidemia, history of pulmonary embolism, history of recurrent UTIs, history of appendectomy, history of CAD stent being followed by Dr. Muñoz in the outpatient setting is complaining of chest discomfort that is felt in the anterior part of the chest which was most like a pressure-type intensity and the patient is scheduled for cardiac catheterization on Friday. Because of increasing difficulties and some weakness, patient came to [facility] and admitted for further evaluation. The patient also had some lower abdominal pain subsequently which relieved after urination according to him. The initial evaluation in the ER showed multiple lab abnormalities also. Lactic acid is 2.5 and troponin 0.235 and WBC 12.9. EKG showed PACs and ST-T changes and the patient admitted for further evaluation and treatment. There is no history of fever or rigors. No history of headache, loss of consciousness or seizures at this time. PAST MEDICAL HISTORY: History of CHF, DVT, history of hypertension, hyperlipidemia, history of pulmonary embolus, recurrent UTIs, UTI with sepsis, appendectomy. MEDICATIONS: Medications prior to admission include home medications: 1. Aspirin 81 mg p.o. daily. 2. Imdur 30 mg p.o. 3. Lasix 40 mg p.o. daily. 4. Lipitor 80 mg p.o. daily. ALLERGIES: None. FAMILY HISTORY: No history of heart disease or strokes in the family. SOCIAL HISTORY: No history of smoking. No history of alcohol intake. REVIEW OF SYSTEMS: ENT: Diminished hearing, diminished vision. CARDIOVASCULAR SYSTEM: As mentioned earlier. RESPIRATORY SYSTEM: As mentioned earlier. GI: No nausea. : No dysuria. NERVOUS SYSTEM: No numbness or weakness. ALLERGY/IMMUNOLOGY: No asthma or hayfever. MUSCULOSKELETAL: As mentioned earlier. HEMATOLOGY/ONCOLOGY: No history of anemia. ENDOCRINE: No history of diabetes or hypothyroidism. CONSTITUTIONAL: As mentioned earlier. DERMATOLOGY: Negative. RHEUMATOLOGY: Negative. PSYCHIATRY: As mentioned earlier. PHYSICAL EXAMINATION: The patient is alert and oriented x3. Pulse is 56, blood pressure 121/69, respiration 18, temperature 98 degrees, pulse ox 98% on 2 L. HEENT: Conjunctivae normal. Oral mucosa moist. NECK: No jugular venous distention. No carotid bruit. No lymph node enlargement. CARDIOVASCULAR: S1, S2 muffled. No S3, no S4. RESPIRATORY: Breath sounds diminished in the bases. No rhonchi. No crackles. ABDOMEN: Soft, nontender. No mass palpable. No ascites. LEGS: No edema, no swelling. NERVOUS SYSTEM: Higher function mentioned earlier. Moves all 4 limbs. No focal motor or sensory deficit. LYMPHATICS: No lymphadenopathy of the neck, axillae or groin. SKIN: No ulcer, rash or bleeding. JOINTS: No active deforming arthropathy. LABS: WBC 12.9, hemoglobin 9.1. INR is 1.2. Sodium 136, potassium 3.3. Creatinine is 1.53. Lactic acid is 2.5. Troponin 0.235. ASSESSMENT: 1. Chest pain possible acute lto-[id number]-elevation myocardial infarction. 2. Troponin 0.235. 3. Lower abdominal pain, rule out urinary tract infection. 4. Elevated creatinine with possibly acute renal failure and acute prerenal renal failure. 5. Hyponatremia. 6. Hypokalemia. 7. Increased WBC. 8. Anemia, normocytic anemia of chronic disease. 9. History of coronary artery disease. 10.History of congestive heart failure. 11.Deep venous thrombosis. 12.Hyperlipidemia. 13.History of pneumonia. 14.History of prostate disorder. 15.History of pulmonary embolism. 16.History of recurrent urinary tract infection with sepsis. 17.History of bladder stones. 18.History of chronic low back pain. 19.History ESBL Klebsiella. 20.History of coronary artery disease, stent. 21.History of lithotripsy. 22.Obesity with body mass index 31.5. RECOMMENDATIONS AND DISCUSSION: This 79-year-old gentleman presented with multiple complex medical issues, we will monitor the patient closely. Continue with the current medications. Continue symptomatic treatment. Otherwise, the patient has elevated troponins suggestive of acute coronary event. Acute coronary syndrome protocol will be followed. Cardiology consultation. Patient also has concerns for urinary tract infection. I would recommend a UA with micro and urine culture also. If the UA is abnormal, I would also recommend antibiotics as well. Otherwise, resume the home medications. Prognosis extremely guarded because of multiple complex medical issues. Further recommendations to follow. A copy of dictation forwarded to Dr. Muñoz who is the primary physician. MMODL / IJN: [id number] /
[2020-05-09] MEDS: POTASSIUM CHLORIDE 20 MEQ in WATER FOR INJECTION 1 100ML.BAG IVPB SCH ×3 (06:00→15:34)
[2020-05-09] MEDS ORDERED: NITROGLYCERIN SL TABS 0.4 MG TAB SUBLINGUAL PRN (07:03)
[2020-05-09] MEDS ORDERED: ATORVASTATIN 80 MG TAB PO STA (07:03)
[2020-05-09] MEDS ORDERED: ALPRAZolam 0.25 MG TAB PO PRN (07:03)
[2020-05-09] MEDS ORDERED: SODIUM CHLORIDE 0.9% 1,000 ML in EMPTY BAG 1 BAG IV ONE (07:03)
[2020-05-09] MEDS ORDERED: ASPIRIN 325 MG TAB PO STA (07:03)
[2020-05-09] MEDS ORDERED: ALPRAZolam 0.5 MG TAB PO PRN (07:03)
--- NOTE | 2020-05-09 07:28 | CONS ---
CONSULTATION Mr. Cook is a 79-year-old male followed by Dr. Alejo with a history of coronary artery disease, status post percutaneous revascularization of his LAD done by Dr. Beckman in January of last year. The patient was evaluated by Dr. Alejo recently and was scheduled to undergo elective cardiac catheterization tomorrow. He presents with symptoms of worsening exertional chest discomfort as well as dyspnea on exertion. His symptoms reminds him somewhat of the way he felt at the time of his prior percutaneous revascularization. The patient underwent a cardiac catheterization in January 2019 and at that time was found to have significant obstructive disease involving the LAD. The right coronary artery had mild obstructive disease. The left circumflex had mild obstructive disease and received a 3.0 x 15 mm stent into the LAD. He underwent repeat cardiac catheterization a few days after because of recurrent chest discomfort and had no evidence of in-stent thrombosis or restenosis. The patient has been having progressive worsening of his symptoms with the progressive chest discomfort and dyspnea. He has the peripheral edema on and off. He denies any dizziness or palpitation. He denies any syncope. The patient has a known history of chronic anemia. His coronary risk factors are remarkable for hyperlipidemia and hypertension. He is a nonsmoker. MEDICATIONS: His medications include isosorbide, Lasix 40 mg daily, Lipitor 80 mg daily and aspirin once a day. REVIEW OF SYSTEMS: RESPIRATORY SYSTEM: He had dyspnea on exertion. He has no recent wheezing, cough. No fever. GI SYSTEM: No recent GI bleed. No peptic ulcer disease. SYSTEM: No dysuria or hematuria. NERVOUS SYSTEM: No history of stroke or seizure. PHYSICAL EXAMINATION: He is a 79-year-old male, alert, oriented, in no apparent distress. Blood pressure 133/70 with the heart rate in the 60s. HEAD: Normocephalic. EYES: Sclerae nonicteric. NECK: Good upstroke. No bruit. No jugular venous distention. LUNGS: Clear to auscultation. HEART: Regular rate and rhythm. S1, S2. No S3 with systolic ejection murmur at the base. No diastolic murmur. No rub. ABDOMEN: Soft, nontender. Positive bowel sounds. No organomegaly. EXTREMITIES: No edema. LAB DATA: Lab data revealed a hemoglobin of 8.7, potassium 3.4, BUN and creatinine 29 and 1.3. Troponin of 0.235 and 0.231. EKG shows a sinus mechanism with QS in the lead III and AVF with the PACs and nonspecific ST-T wave changes. Chest x-ray shows no acute infiltrate. IMPRESSION: 1. Chest discomfort with evidence suggestive of non ST-segment elevation myocardial infarction which the patient has a prior history of percutaneous revascularization of the LAD. 2. History of hypertension. 3. Hyperlipidemia. 4. Chronic anemia. 5. Abnormal renal function. RECOMMENDATION: I would recommend to proceed with the cardiac catheterization that was scheduled tomorrow to further assess his status and guide the treatment. The rationale behind the procedure as well as the risks and the complications were discussed with the patient who is in full understanding and agreement. Thank you for this consult. We will follow with you. LUKASZL / IJN: [id number] /
[2020-05-09] MEDS ORDERED: FUROSEMIDE 40 MG TAB PO SCH (09:00)
[2020-05-09] MEDS ORDERED: ASPIRIN 325 MG TAB PO SCH (09:00)
[2020-05-09] MEDS: ISOSORBIDE MONONITRATE ER 30 MG TAB.ER.24H PO SCH (09:36)
[2020-05-09] MEDS: ATORVASTATIN 80 MG TAB PO SCH (09:37)
[2020-05-09] MEDS: PANTOPRAZOLE 40 MG TABLET PO SCH (09:37)
[2020-05-09] MEDS ORDERED: Potassium Replacement Protocol 1 EACH MISC MISCELLANE PRN (10:04)
[2020-05-09] MEDS ORDERED: LIDOCAINE 1% INJ 10MG/ML (20 ML MDV) ONE (10:12)
[2020-05-09] MEDS ORDERED: fentaNYL (PF) 50 MCG/ML 2 ML AMP ONE (10:13)
[2020-05-09] MEDS ORDERED: IV FLUID CONTINUATION 600 ML IV ONE (10:14)
[2020-05-09] MEDS ORDERED: fentaNYL (PF) 50 MCG/ML 2 ML AMP IV ONE (10:33)
[2020-05-09] MEDS ORDERED: MIDAZOLAM 2 MG/2 ML VIAL IV ONE (10:33)
[2020-05-09] MEDS ORDERED: LIDOCAINE 1% INJ 10MG/ML (20 ML MDV) SQ ONE (10:37)
[2020-05-09] MEDS ORDERED: RX INFO: IV CONTRAST WAS GIVEN 1 EACH MISC MISCELLANE PRN (11:01)
[2020-05-09] MEDS ORDERED: IOPAMIDOL-370 125ML BTL INJ ONE (11:03)
--- NOTE | 2020-05-09 11:41 | CC ---
CARDIAC CATHETERIZATION REPORT INDICATION: Unstable angina. This is a 79-year-old gentleman with history of coronary artery disease, status post prior angioplasty of LAD, who is admitted to hospital with shortness of breath, chest pain and had mild troponin elevation. His troponin does not really have any pattern to it and has remained at 0.2 throughout. He is also anemic with a low hemoglobin. I was supposed to do a heart catheterization on him tomorrow. Hence, it was decided to go ahead and do it today. PROCEDURE NOTE: After obtaining informed consent, left heart catheterization and coronary angiogram were performed via the right femoral artery using standard Napoleon catheters. We used a long 23 cm sheath because of a tortuous right iliac artery and a previous cardiac cath. The patient tolerated the procedure well without any obvious immediate complications. A femoral angiogram was performed and decision was made for manual hemostasis. He received moderate conscious sedation. Total sedation time was 21 minute. FINDINGS: 1. HEMODYNAMICS: Left ventricular end-diastolic pressure is 6-8 mm. There is no significant gradient across the aortic valve. 2. LEFT VENTRICULOGRAM: Left ventriculogram was not performed. 3. ANGIOGRAPHIC DATA: LEFT MAIN CORONARY ARTERY: Left main coronary artery is a normal-sized vessel and is free of stenosis. Divides into left anterior descending coronary artery and circumflex coronary artery. Circumflex coronary artery and its branches show mild nonobstructive CAD. LAD was previously stented in the midportion and the stent appears patent. Distal to the stent there is a mild to moderate narrowing at its worst it seems to be a 40% to 50% stenosis. This remained unchanged compared to a cardiac cath done in 2018. The patient also has a diagonal branch that has an ostial narrowing which again was noted on a previous cardiac cath. 1. Right coronary artery is a large dominant vessel that shows mild nonobstructive CAD. CONCLUSION: Patent stent within the LAD with a moderate area of stenosis distal to the stent, which has remained unchanged over the last 2 years and the diagonal branch that is being jailed GA I lad jailed with the stent. PLAN: Patient's symptoms are probably not related to the coronary artery disease. They are more likely related to the anemia. 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 However, his hematuria has resolved and the exact etiology for his anemia is unclear. I am going to consult GI to see if the patient needs to have EGD and colonoscopy to evaluate his anemia. Hopefully this can be done on this admission. MMODL / IJN: [id number] /
--- NOTE | 2020-05-09 11:44 | LTR ---
DATE OF SERVICE: 05/09/2020 RE: Rafiq Cook Dear Trino; I performed cardiac catheterization on Rafiq Cook. A detail catheterization note is enclosed for your records. The cardiac catheterization revealed patent stent within the LAD. I believe his symptoms are not related to the coronary artery disease. He is anemic and needs further evaluation for the same. Thank you for giving us the privilege to participate with this pleasant gentleman. Sincerely yours, MD REUBEN Moody / JOSE: [id number] /
--- NOTE | 2020-05-09 16:04 | P.PN ---
Subjective 79-year-old male is admitted for possible non-ST elevation microinfarction with mildly elevated troponin,underwent diagnostic catheterization which did not require any intervention Constitutional: Denied any fatigue denied any fever. Cardio vascular: denied any chest pain, palpitations Gastrointestinal denied any nausea vomiting Pulmonary: Denied any shortness of breath cough Neurologic denied any new focal deficits All inpatient medications were reviewed and appropriate changes in these medications as dictated in the interval history and assessment and plan. Objective - Vital Signs Vital signs: Vital Signs Temp 97.4 F L 05/09/20 12:46 Pulse 58 L 05/09/20 13:46 Resp 16 05/09/20 13:46 BP 98/55 05/09/20 13:46 Pulse Ox 93 L 05/09/20 13:46 Intake & Output 05/08/20 05/09/20 05/09/20 18:59 06:59 18:59 Intake Total 63.865 272 Output Total 500 1100 Balance -436.135 -828 Weight 93.894 kg 89.9 kg Intake: IV 50 Intake, IV Titration 63.865 Amount Heparin Sod,Pork in 0.45% 63.865 NaCl 25,000 unit In 0.45 % NaCl 1 250ml.bag @ 10.6 UNITS/KG/HR 9.953 mls/hr IV .Q24H [facility] Rx#: [id number] Oral 222 Output: Urine 500 1100 Other: Voiding Method Urinal Urinal # Voids 2 - Exam PHYSICAL EXAMINATION: GENERAL: The patient is alert and oriented x3, not in any acute distress. Well developed, well nourished. HEENT: Pupils are round and equally reacting to light. EOMI. No scleral icterus. No conjunctival pallor. Normocephalic, atraumatic. No pharyngeal erythema. No thyromegaly. CARDIOVASCULAR: S1 and S2 present. No murmurs, rubs, or gallops. PULMONARY: Chest is clear to auscultation, no wheezing or crackles. ABDOMEN: Soft, nontender, nondistended, normoactive bowel sounds. No palpable organomegaly. MUSCULOSKELETAL: No joint swelling or deformity. EXTREMITIES: No cyanosis, clubbing, or pedal edema. NEUROLOGICAL: Gross neurological examination did not reveal any focal deficits. SKIN: No rashes. - Labs CBC & Chem 7: 05/09/20 03:32 05/09/20 03:32 Labs: Abnormal Lab Results - Last 24 Hours (Table) 05/08/20 05/08/20 05/08/20 Range/Units 19:04 19:04 19:04 WBC 12.9 H (3.8-10.6) k/uL RBC 3.31 L (4.30-5.90) m/uL Hgb 9.1 L (13.0-17.5) gm/dL Hct 28.1 L (39.0-53.0) % RDW 17.7 H (11.5-15.5) % Neutrophils # 10.2 H (1.3-7.7) k/uL PT 12.4 H (9.0-12.0) sec INR 1.2 H (<1.2) APTT (22.0-30.0) sec Sodium 136 L (137-145) mmol/L Potassium 3.3 L (3.5-5.1) mmol/L Chloride 96 L (98-107) mmol/L Carbon Dioxide 31 H (22-30) mmol/L BUN 34 H (9-20) mg/dL Creatinine 1.53 H (0.66-1.25) mg/dL Glucose 118 H (74-99) mg/dL POC Glucose (mg/dL) (75-99) mg/dL Plasma Lactic Acid Jensen (0.7-2.0) mmol/L Calcium (8.4-10.2) mg/dL Total Bilirubin 1.7 H (0.2-1.3) mg/dL Troponin I (0.000-0.034) ng/mL Albumin (3.5-5.0) g/dL HDL Cholesterol (40-60) mg/dL Urine Protein (Negative) Urine Blood (Negative) Ur Leukocyte Esterase (Negative) Urine WBC (0-5) /hpf Urine Mucus (None) /hpf 05/08/20 05/08/20 05/09/20 Range/Units 19:04 19:04 00:25 WBC (3.8-10.6) k/uL RBC (4.30-5.90) m/uL Hgb (13.0-17.5) gm/dL Hct (39.0-53.0) % RDW (11.5-15.5) % Neutrophils # (1.3-7.7) k/uL PT (9.0-12.0) sec INR (<1.2) APTT (22.0-30.0) sec Sodium (137-145) mmol/L Potassium (3.5-5.1) mmol/L Chloride (98-107) mmol/L Carbon Dioxide (22-30) mmol/L BUN (9-20) mg/dL Creatinine (0.66-1.25) mg/dL Glucose (74-99) mg/dL POC Glucose (mg/dL) (75-99) mg/dL Plasma Lactic Acid Jensen 2.5 H* (0.7-2.0) mmol/L Calcium (8.4-10.2) mg/dL Total Bilirubin (0.2-1.3) mg/dL Troponin I 0.235 H* (0.000-0.034) ng/mL Albumin (3.5-5.0) g/dL HDL Cholesterol (40-60) mg/dL Urine Protein Trace H (Negative) Urine Blood Trace H (Negative) Ur Leukocyte Esterase Large H (Negative) Urine WBC >182 H (0-5) /hpf Urine Mucus Rare H (None) /hpf 05/09/20 05/09/20 05/09/20 Range/Units 00:44 00:44 03:32 WBC (3.8-10.6) k/uL RBC (4.30-5.90) m/uL Hgb (13.0-17.5) gm/dL Hct (39.0-53.0) % RDW (11.5-15.5) % Neutrophils # (1.3-7.7) k/uL PT (9.0-12.0) sec INR (<1.2) APTT 42.4 H (22.0-30.0) sec Sodium (137-145) mmol/L Potassium (3.5-5.1) mmol/L Chloride (98-107) mmol/L Carbon Dioxide (22-30) mmol/L BUN (9-20) mg/dL Creatinine (0.66-1.25) mg/dL Glucose (74-99) mg/dL POC Glucose (mg/dL) 140 H (75-99) mg/dL Plasma Lactic Acid Jensen (0.7-2.0) mmol/L Calcium (8.4-10.2) mg/dL Total Bilirubin (0.2-1.3) mg/dL Troponin I 0.231 H* (0.000-0.034) ng/mL Albumin (3.5-5.0) g/dL HDL Cholesterol (40-60) mg/dL Urine Protein (Negative) Urine Blood (Negative) Ur Leukocyte Esterase (Negative) Urine WBC (0-5) /hpf Urine Mucus (None) /hpf 05/09/20 05/09/20 05/09/20 Range/Units 03:32 03:32 06:58 WBC (3.8-10.6) k/uL RBC 3.22 L (4.30-5.90) m/uL Hgb 8.7 L (13.0-17.5) gm/dL Hct 27.8 L (39.0-53.0) % RDW 17.9 H (11.5-15.5) % Neutrophils # (1.3-7.7) k/uL PT (9.0-12.0) sec INR (<1.2) APTT (22.0-30.0) sec Sodium (137-145) mmol/L Potassium 3.4 L (3.5-5.1) mmol/L Chloride (98-107) mmol/L Carbon Dioxide 33 H (22-30) mmol/L BUN 29 H (9-20) mg/dL Creatinine 1.30 H (0.66-1.25) mg/dL Glucose 124 H (74-99) mg/dL POC Glucose (mg/dL) (75-99) mg/dL Plasma Lactic Acid Jensen (0.7-2.0) mmol/L Calcium 8.1 L (8.4-10.2) mg/dL Total Bilirubin 1.7 H (0.2-1.3) mg/dL Troponin I 0.218 H* (0.000-0.034) ng/mL Albumin 3.1 L (3.5-5.0) g/dL HDL Cholesterol 33 L (40-60) mg/dL Urine Protein (Negative) Urine Blood (Negative) Ur Leukocyte Esterase (Negative) Urine WBC (0-5) /hpf Urine Mucus (None) /hpf Microbiology - Last 24 Hours (Table) 06/09/20 00:25 Urine Culture - Preliminary Urine,Voided Assessment and Plan Plan: chest pain with mildly elevated troponins with possibility ofacute non-ST elevation microinfarction: Patient is status post cardiac catheterization which did not require any intervention -hypertension -Hyperlipidemia -mild hypokalemia potassium will be replaced -history of DVT in the past -coronary artery diseasee -History of PE in the past - benign prostatic hypertrophy For above-mentioned chronic medical problems patient will be resumed on appropriate home medications
--- NOTE | 2020-05-09 17:32 | CONS ---
CONSULTATION DATE OF DICTATION: 05/09/2020 REASON FOR CONSULTATION: Anemia and weakness. HISTORY OF PRESENT ILLNESS: The patient is a 79-year-old pleasant white male with history of coronary artery disease, congestive heart failure, hypertension, hyperlipidemia and history of pulmonary embolism in the past, admitted to the hospital with chest pain and weakness. He had slightly elevated troponins and EKG changes that showed ST and T-wave changes and hence Cardiology was consulted. He underwent cardiac catheterization that revealed no significant blockages and a patent stent within the LAD. He was on IV heparin that has been discontinued this morning. At the time of admission to the hospital he was noted to have anemia with a hemoglobin of 8.7 g/dL. On review of his medical records, his baseline hemoglobin is between 8.5 and 10 g/dL over the last one year. He denies any abdominal pain. No nausea or vomiting. No rectal bleeding or melena. His last colonoscopy was approximately 4 years ago and, according to the patient, it was within normal limits. PAST MEDICAL HISTORY: His past medical history is significant for hypertension, coronary artery disease, status post stent placement in the past, hyperlipidemia, degenerative joint disease, congestive heart failure, history of DVT in the past, recurrent UTI. PAST SURGICAL HISTORY: Appendectomy, stent placement, cardiac catheterization this morning, prostate surgery ALLERGIES: NONE. MEDICATIONS: Medications at home include Lipitor, Lasix and SOCIAL HISTORY: No smoking. No alcohol use. FAMILY HISTORY: Unremarkable. REVIEW OF SYSTEMS: CARDIOPULMONARY: He denies any chest pain or shortness of breath. He had some chest pain yesterday, but it resolved. NEUROLOGY: Unremarkable. PSYCHIATRY: Unremarkable. ENT/VISION: Unremarkable. CONSTITUTIONAL: No recent weight loss. No fever, chills, night sweats. HEMATOLOGY: Chronic anemia. ENDOCRINE: Unremarkable. ONCOLOGY: Unremarkable. GI: As mentioned above. FAMILY HISTORY: Father with no reported history and at age 95. Mother had hypertension. PHYSICAL EXAMINATION: He appears comfortable. No apparent distress. Vital signs are stable. Blood pressure is 98/55, pulse rate 58, temperature 97.4. HEENT examination unremarkable. Conjunctivae pink. Sclerae anicteric. Oral cavity no lesions. NECK: No JVD or lymph node enlargement. CHEST: Clear to auscultation. HEART: Regular rate and rhythm. ABDOMEN: Soft. Bowel sounds are positive. No organomegaly. EXTREMITIES: No pedal edema. in the right groin at the site of cardiac catheterization. NEUROLOGIC: Alert and oriented x3. No focal deficits. LABS: Labs done today show WBC 10.3, hemoglobin 8.7. MCV is normal. Platelets are normal. Basic metabolic panel showed a BUN of 29, creatinine 1.30. Troponin 0.21. IMPRESSION: 1. Normocytic anemia. Clinically no evidence of active bleeding. Cannot rule out occult gastrointestinal blood loss. Last colonoscopy was about 4 years ago and, according to the patient, it was within normal limits. 2. Chest pain, status post cardiac catheterization this morning which revealed patent stent in the left anterior descending coronary artery. 3. History of chronic kidney disease. RECOMMENDATIONS: 1. Monitor CBC on a daily basis. 2. Obtain iron studies. 3. Stool for occult blood. 4. If this is iron deficiency anemia, will consider endoscopic workup. Thank you for this consultation. MMODL / IJN: [id number] /
[2020-05-10] MEDS: PANTOPRAZOLE 40 MG TABLET PO SCH (06:15)
[2020-05-10 07:15] LABS: Anisocytosis Slight; Basophils % (A) 0 %; Eosinophils # (A) 0.1 k/uL (0-0.7); Eosinophils % (A) 2 %; HCT 23.6 % (39.0-53.0); HGB 7.5 gm/dL (13.0-17.5); Hypochromasia Slight; Lymphocytes # (A) 1.1 k/uL (1.0-4.8); Lymphocytes % (A) 17 %; MCH 27.9 pg (25.0-35.0); MCHC 31.9 g/dL (31.0-37.0); MCV 87.4 fL (80.0-100.0); Mean Platelet Volume 7.3; Monocytes # (A) 0.6 k/uL (0-1.0); Monocytes % (A) 9 %; Neutrophils # (A) 4.6 k/uL (1.3-7.7); Neutrophils % (A) 70 %; Platelet Count 181 k/uL (150-450); WBC 6.6 k/uL (3.8-10.6)
[2020-05-10 07:25] LABS: Albumin 2.7 g/dL (3.5-5.0); Calcium 7.9 mg/dL (8.4-10.2); Potassium 3.6 mmol/L (3.5-5.1); Total Bilirubin 1.1 mg/dL (0.2-1.3); Total Protein 5.9 g/dL (6.3-8.2)
[2020-05-10 07:47] LABS: Reticulocyte % 3.6 % (0.5-2.0)
[2020-05-10] MEDS: ATORVASTATIN 80 MG TAB PO SCH (09:19)
[2020-05-10] MEDS: ISOSORBIDE MONONITRATE ER 30 MG TAB.ER.24H PO SCH (09:19)
[2020-05-10] MEDS: ASPIRIN 81 MG PO SCH (09:20)
[2020-05-10] MEDS ORDERED: POTASSIUM CHLORIDE ER 20 MEQ TAB.ER PO STA (11:01)
--- NOTE | 2020-05-10 12:07 | P.DS ---
Providers Date of admission: 05/08/20 21:48 Attending physician: Melissa Dubon Consults: 05/08/20 21:48 Consult Physician Urgent Consulting Provider: Marine Hurtado Consult Reason/Comments: nstemi Do you want consulting provider notified?: Yes 05/09/20 11:02 Consult Physician Routine Consulting Provider: Reggie Pryor Consult Reason/Comments: anemia Do you want consulting provider notified?: Yes Primary care physician: Wanda Jameson [facility] Course: 79-year-old male is admitted for possible non-ST elevation microinfarction with mildly elevated troponin,underwent diagnostic catheterization which did not require any intervention 05/10/2020 Patient is stable from cardiac perspective with the patient has low hemoglobin and anemia because of that reason the cardiology consulted gastroenterology patient doesn't have any signs or symptoms of acute GI bleed I'm studies were ordered which can be followed as an outpatient. Patient will be evaluated by physical therapy and occupational therapy if the patient will need subacute rehab workup subacute rehab if he doesn't require any subacute rehab patient will be discharged home with home care. Patient did not require any Lasix here patient doesn't have any systolic dysfunction I cannot completely rule out diastolic heart failure because of that reason I'll cut down the Lasix to 20 mg patient came in with hot renal failure because of diuretics. Patient may or may not need Lasix at all. We'll repeat the basic metabolic profile again in about 3 days C. diff creatinine starts going up Lasix. We discontinued at the time.further evaluation and treatment of his chronic anemia as an outpatient PHYSICAL EXAMINATION: GENERAL: The patient is alert and oriented x3, not in any acute distress. Well developed, well nourished. HEENT: Pupils are round and equally reacting to light. EOMI. No scleral icterus. does have conjunctival pallor. Normocephalic, atraumatic. No pharyngeal erythema. No thyromegaly. CARDIOVASCULAR: S1 and S2 present. No murmurs, rubs, or gallops. PULMONARY: Chest is clear to auscultation, no wheezing or crackles. ABDOMEN: Soft, nontender, nondistended, normoactive bowel sounds. No palpable organomegaly. MUSCULOSKELETAL: No joint swelling or deformity. EXTREMITIES: No cyanosis, clubbing, or pedal edema. NEUROLOGICAL: Gross neurological examination did not reveal any focal deficits. SKIN: No rashes. Assessment and Plan Plan: chest pain with mildly elevated troponins with possibility ofacute non-ST elevation microinfarction: Patient is status post cardiac catheterization which did not require any intervention -hypertension -Hyperlipidemia -history of DVT in the past -coronary artery diseasee -History of PE in the past - benign prostatic hypertrophy anemia chronic etiologies unknown Patient Condition at Discharge: Serious Plan - Discharge Summary Discharge Rx Participant: Yes New Discharge Prescriptions: New Nitroglycerin Sl Tabs [Nitrostat] 0.4 mg SUBLINGUAL Q5M PRN #30 tab PRN Reason: Chest Pain Famotidine [Pepcid] 20 mg PO BID #30 tablet Continue Aspirin 81 mg PO DAILY #30 chew Atorvastatin [Lipitor] 80 mg PO DAILY Isosorbide Dinitrate 30 mg PO DAILY Changed Furosemide [Lasix] 20 mg PO DAILY #0 Discharge Medication List Aspirin 81 mg PO DAILY #30 chew 02/24/18 [Rx] Atorvastatin [Lipitor] 80 mg PO DAILY 05/06/19 [History] Isosorbide Dinitrate 30 mg PO DAILY 05/08/20 [History] Famotidine [Pepcid] 20 mg PO BID #30 tablet 05/10/20 [Rx] Furosemide [Lasix] 20 mg PO DAILY #0 05/10/20 [Rx] Nitroglycerin Sl Tabs [Nitrostat] 0.4 mg SUBLINGUAL Q5M PRN #30 tab 05/10/20 [Rx] Follow up Appointment(s)/Referral(s): Trino Muñoz MD [Primary Care Provider] - 3 Days Ambulatory/Diagnostic Orders: Basic Metabolic Panel [LAB.AMB] Time Frame: 3 Days, Location: None Selected
[2020-05-10 12:46] LABS: % Iron Saturation 11.06 (15.00-50.00); Ferritin 391.9 ng/mL (22.0-322.0); Folate, Serum 12.1 ng/mL
--- NOTE | 2020-05-10 14:00 | P.PN ---
Subjective Progress Note Date: 05/10/20 This pleasant 79-year-old gentleman who follows with Dr. Alejo in the office. He has a history of CAD, status post percutaneous revascularization of the LAD done by Dr. Lynn in January 2019. Was initially evaluated by Dr. Lancaster recently and was scheduled to undergo elective cardiac catheterization but p resented to the hospital with symptoms of worsening exertional chest discomfort as well as dyspnea on exertion. Underwent cardiac catheterization yesterday revealed patent stent in the LAD with mild to moderate narrowing distal to the stent of about 40-50% which is unchanged compared to cardiac catheterization done in 2018. Symptoms felt likely not related to CAD and more likely related to anemia. GI has been consulted. Overall the patient is feeling fairly well today. Denies complaints of chest discomfort and his breathing is stable. Hemoglobin this morning is 7.5 with a BUN of 21 and creatinine 1.17. He was seen in consultation yesterday by Dr. Vivien Alejo who is recommending iron studies, stool for occult blood and possible endoscopic workup depending on the results. Objective - Vital Signs Vital signs: Vital Signs Temp 98.2 F 05/10/20 08:00 Pulse 59 L 05/10/20 08:00 Resp 16 05/10/20 08:00 BP 139/67 05/10/20 08:00 Pulse Ox 97 05/10/20 08:00 Intake & Output 05/09/20 05/10/20 05/10/20 18:59 06:59 18:59 Intake Total 752 100 240 Output Total 1500 700 Balance -748 -600 240 Weight 90 kg Intake: IV 50 Intake, IV Titration 100 Amount Potassium Chloride 20 meq 100 In Water For Injection 1 100ml.bag @ 50 mls/hr IVPB Q2H [facility] Rx#: [id number] Oral 702 240 Output: Urine 1500 700 Other: Voiding Method Urinal Urinal Urinal # Voids 2 1 # Bowel Movements 1 - Exam PHYSICAL EXAMINATION: HEENT: Head is atraumatic, normocephalic. Pupils equal, round. Neck is supple. There is no elevated jugular venous pressure. HEART EXAMINATION: Heart sounds regular, S1 and S2 with a systolic ejection murmur. CHEST EXAMINATION: Lungs are clear to auscultation and precussion. No chest wall tenderness is noted on palpation or with deep breathing. ABDOMEN: Soft, nontender. Bowel sounds are heard. No organomegaly noted. EXTREMITIES: 2+ peripheral pulses with no evidence of peripheral edema and no calf tenderness noted. Right femoral puncture site soft without hematoma or ecchymosis. NEUROLOGIC patient is awake, alert and oriented x3. . - Labs CBC & Chem 7: 05/10/20 05:48 05/10/20 05:48 Labs: Abnormal Lab Results - Last 24 Hours (Table) 05/10/20 05/10/20 05/10/20 Range/Units 05:48 05:48 05:48 RBC 2.70 L (4.30-5.90) m/uL Hgb 7.5 L (13.0-17.5) gm/dL Hct 23.6 L (39.0-53.0) % RDW 18.0 H (11.5-15.5) % Retic Count 3.6 H (0.5-2.0) % BUN 21 H (9-20) mg/dL Glucose 111 H (74-99) mg/dL Calcium 7.9 L (8.4-10.2) mg/dL Total Protein 5.9 L (6.3-8.2) g/dL Albumin 2.7 L (3.5-5.0) g/dL Microbiology - Last 24 Hours (Table) 05/09/20 00:25 Urine Culture - Preliminary Urine,Voided Gram Neg Bacilli Assessment and Plan Assessment: #1 chest discomfort with elevation of troponins, felt to be more related to anemia as cardiac catheterization showed patent stent with no change in 40-50% lesion distal to the stented portion #2 anemia #3 hyperlipidemia #4 hypertension #5 abnormal renal functions Plan: From cardiology's perspective, medications were reviewed and we will continue the same. From our standpoint, patient may be discharged home when cleared by primary and GI. He will follow-up in the office with Dr. Alejo in about a week. PAPER FEEDER note has been reviewed, I agree with a documented findings and plan of care. Patient was seen and examined.
--- NOTE | 2020-05-11 03:45 | PN ---
PROGRESS NOTE DATE OF DICTATION: 05/10/2020 Patient is a 79-year-old pleasant white male admitted to the hospital with chest pain, underwent cardiac catheterization yesterday that did not show any significant blockages. His stent was patent. He was noted to have anemia with a hemoglobin of 8.7. Hence, he was seen on consultation yesterday. He did have iron studies done that showed a serum iron of 23, TIBC of , iron saturation of 11% and ferritin of 391 not consistent with iron deficiency anemia. The patient denies any symptoms. He did not have any bowel movement so far and hence stool for occult blood could not be done. He denies any symptoms. PHYSICAL EXAMINATION: On physical examination, he appears comfortable, in no apparent distress. Vital signs are stable. Blood pressure is 135/65, pulse rate 51, temperature 98. HEENT EXAMINATION: Unremarkable. Conjunctivae pink. Sclerae anicteric. Oral cavity, no lesions. NECK: No JVD or lymph node enlargement. CHEST: Clear to auscultation. HEART: Regular rate and rhythm. ABDOMEN: Soft. Bowel sounds are positive. No organomegaly. EXTREMITIES: No pedal edema. SKIN: No rashes. NEUROLOGIC: Alert and oriented x3. No focal deficits. LABS: Labs from today: WBC 6.6, hemoglobin 7.5, platelets normal. Iron saturation 11% and ferritin is 391. BUN 21, creatinine 1.17. IMPRESSION: 1. Normocytic anemia and , not consistent with iron deficiency anemia most likely dealing with anemia of chronic disease. Clinically no evidence of active bleeding. 2. History of coronary artery disease. 3. Shortness of breath. Chest pain resolved. Status post cardiac catheterization yesterday and no significant coronary artery disease noted. RECOMMENDATION: 1. No plans for any endoscopic intervention at this time. 2. Monitor CBC closely. 3. Consider hematology consultation outpatient basis. Thank you for this consultation. MMODL / IJN: [id number] /
[2020-05-11 06:38] LABS: Anisocytosis Slight; Basophils % (A) 0 %; Eosinophils # (A) 0.2 k/uL (0-0.7); Eosinophils % (A) 4 %; HCT 24.2 % (39.0-53.0); HGB 7.6 gm/dL (13.0-17.5); Hypochromasia Slight; Lymphocytes # (A) 1.1 k/uL (1.0-4.8); Lymphocytes % (A) 20 %; MCH 27.6 pg (25.0-35.0); MCHC 31.4 g/dL (31.0-37.0); MCV 87.9 fL (80.0-100.0); Mean Platelet Volume 7.6; Monocytes # (A) 0.4 k/uL (0-1.0); Monocytes % (A) 7 %; Neutrophils # (A) 3.7 k/uL (1.3-7.7); Neutrophils % (A) 66 %; Platelet Count 182 k/uL (150-450); RBC 2.76 m/uL (4.30-5.90); WBC 5.5 k/uL (3.8-10.6)
[2020-05-11] MEDS: PANTOPRAZOLE 40 MG TABLET PO SCH (06:38)
[2020-05-11 06:50] LABS: Albumin 2.8 g/dL (3.5-5.0); Calcium 8.3 mg/dL (8.4-10.2); Potassium 3.8 mmol/L (3.5-5.1); Total Bilirubin 0.9 mg/dL (0.2-1.3)
[2020-05-11] MEDS: ISOSORBIDE MONONITRATE ER 30 MG TAB.ER.24H PO SCH (08:24)
[2020-05-11] MEDS: ASPIRIN 81 MG PO SCH (08:24)
[2020-05-11] MEDS: ATORVASTATIN 80 MG TAB PO SCH (08:24)
[2020-05-11] MEDS ORDERED: CYANOCOBALAMIN 1,000 MCG/ML 1 ML VIAL IM ONE (09:41)
--- NOTE | 2020-05-11 10:36 | P.PN ---
Subjective Progress Note Date: 05/11/20 This pleasant 79-year-old gentleman who follows with Dr. Alejo in the office. He has a history of CAD, status post percutaneous revascularization of the LAD done by Dr. Lynn in January 2019. Was initially evaluated by Dr. Lancaster recently and was scheduled to undergo elective cardiac catheterization but p resented to the hospital with symptoms of worsening exertional chest discomfort as well as dyspnea on exertion. Underwent cardiac catheterization yesterday revealed patent stent in the LAD with mild to moderate narrowing distal to the stent of about 40-50% which is unchanged compared to cardiac catheterization done in 2018. Symptoms felt likely not related to CAD and more likely related to anemia. GI has been consulted. Overall the patient is feeling fairly well today. Denies complaints of chest discomfort and his breathing is stable. Hemoglobin this morning is 7.5 with a BUN of 21 and creatinine 1.17. He was seen in consultation yesterday by Dr. Vivien Alejo who is recommending iron studies, stool for occult blood and possible endoscopic workup depending on the results. 05/11/2020 Seen and examined this morning resting in bed. This morning he complains of some wheezing, nonproductive cough and some shortness of breath. He feels warm but is afebrile. Vital signs are stable and he's satting 95% on room air. Labs this morning show a hemoglobin of 7.6, BUN 19, creatinine 1.18. Objective - Vital Signs Vital signs: Vital Signs Temp 98 F 05/11/20 08:00 Pulse 54 L 05/11/20 08:00 Resp 16 05/11/20 08:00 BP 123/71 05/11/20 08:00 Pulse Ox 95 05/11/20 08:00 Intake & Output 05/10/20 05/11/20 05/11/20 18:59 06:59 18:59 Intake Total 1080 1350 240 Output Total 450 450 Balance 630 900 240 Weight 93.5 kg Intake: Oral 1080 1350 240 Output: Urine 450 450 Other: Voiding Method Urinal Toilet Urinal # Voids 3 2 # Bowel Movements 1 - Exam PHYSICAL EXAMINATION: HEENT: Head is atraumatic, normocephalic. Pupils equal, round. Neck is supple. There is no elevated jugular venous pressure. HEART EXAMINATION: Heart sounds regular, S1 and S2 with a systolic ejection murmur. CHEST EXAMINATION: Lungs reveal expiratory wheezing throughout. No chest wall tenderness is noted on palpation or with deep breathing. ABDOMEN: Soft, nontender. Bowel sounds are heard. No organomegaly noted. EXTREMITIES: 2+ peripheral pulses with no evidence of peripheral edema and no calf tenderness noted. Right femoral puncture site soft without hematoma or ecchymosis. NEUROLOGIC patient is awake, alert and oriented x3. . - Labs CBC & Chem 7: 05/11/20 05:40 05/11/20 05:40 Labs: Abnormal Lab Results - Last 24 Hours (Table) 05/10/20 05/11/20 05/11/20 Range/Units 05:48 05:40 05:40 RBC 2.76 L (4.30-5.90) m/uL Hgb 7.6 L (13.0-17.5) gm/dL Hct 24.2 L (39.0-53.0) % RDW 18.0 H (11.5-15.5) % Glucose 116 H (74-99) mg/dL Calcium 8.3 L (8.4-10.2) mg/dL Iron 23 L (65-175) ug/dL TIBC 208 L (228-460) ug/dL % Saturation 11.06 L (15.00-50.00) Ferritin 391.9 H (22.0-322.0) ng/mL Total Protein 6.0 L (6.3-8.2) g/dL Albumin 2.8 L (3.5-5.0) g/dL Microbiology - Last 24 Hours (Table) 05/09/20 00:25 Urine Culture - Final Urine,Voided Klebsiella pneumoniae Assessment and Plan Assessment: #1 chest discomfort with elevation of troponins, felt to be more related to anemia as cardiac catheterization showed patent stent with no change in 40-50% lesion distal to the stented portion #2 anemia #3 hyperlipidemia #4 hypertension #5 abnormal renal functions #6 symptoms or shortness of breath and wheezing with cough Plan: From cardiology's perspective, medications were reviewed and we will continue the same. We will obtain a chest x-ray. Give Lasix 40 mg IVP x1. Further recommendations to follow. CENTRAL SUPPLY TECHNICIAN SUPERVISOR note has been reviewed, I agree with a documented findings and plan of care. Patient was seen and examined.
[2020-05-11] MEDS ORDERED: FUROSEMIDE 10 MG/ML 4 ML VIAL IV STA (11:24)
--- NOTE | 2020-05-11 11:32 | XR ---
EXAMINATION TYPE: XR chest 2V DATE OF EXAM: 05/11/2020 COMPARISON: 05/08/2020 TECHNIQUE: PA and lateral views submitted. HISTORY: Redness of breath FINDINGS: Subsegmental changes at both lung bases. Prominent right paratracheal stripe. Atherosclerotic change aorta. No overt failure. Tiny left pleural effusion or thickening. Findings stable. Hypertrophic and degenerative change of the spine. IMPRESSION: 1. Basilar atelectasis or infiltrate with tiny left effusion stable.
[2020-05-11 12:16] LABS: Appearance,Urine Turbid (Clear); Bacteria,Urine Many /hpf; Bilirubin,Urine Negative (Negative); Blood,Urine Small (Negative); Color,Urine Yellow; Glucose,Urine (UA) Negative (Negative); Hyaline Casts,Urine 29 /lpf (0-2); Ketones,Urine Negative (Negative); Leukocyte Esterase,Urine Large (Negative); Mucus,Urine Rare /hpf; Nitrite,Urine Negative (Negative); Protein,Urine 1+ (Negative); RBC,Urine 15 /hpf (0-5); Specific Gravity,Urine 1.018 (1.001-1.035); Urobilinogen,Urine <2.0 mg/dL (<2.0); WBC,Urine >182 /hpf (0-5)
--- NOTE | 2020-05-11 15:32 | P.PN ---
Subjective Progress Note Date: 05/11/20 Principal diagnosis: 79-year-old male is admitted for possible non-ST elevation microinfarction with mildly elevated troponin, underwent diagnostic catheterization which did not re quire any intervention Constitutional: Denied any fatigue denied any fever. Cardio vascular: denied any chest pain, palpitations Gastrointestinal denied any nausea vomiting Pulmonary: Denied any shortness of breath cough Neurologic denied any new focal deficits All inpatient medications were reviewed and appropriate changes in these medications as dictated in the interval history and assessment and plan. 05/11/2020 Patient is seen and evaluated in follow-up and is having some shortness of rocky ath with wheezing noted. Patient had a chest x-ray which shows some basilar atelectasis or infiltrate with tiny left effusion is stable. Patient will be given a dose of IV Lasix and will be resumed on oral Lasix. Patient being evaluated by PT/OT as he was requiring assistance and having trouble with gait. Patient still adamant about going home and does not want to go to rehab although is concerned about safely going home. Patient and family may be agreeable to home care with physical therapy in the outpatient setting. Currently no reports of chest pain or palpitations. Patient is afebrile. No reports of nausea or vomiting and patient is tolerating diet. Cardiology and GI following the patient as well. Objective - Vital Signs Vital signs: Vital Signs Temp 98 F 05/11/20 08:00 Pulse 53 L 05/11/20 12:00 Resp 16 05/11/20 12:00 BP 128/56 05/11/20 12:00 Pulse Ox 96 05/11/20 12:00 Intake & Output 05/10/20 05/11/20 05/11/20 18:59 06:59 18:59 Intake Total 1080 1350 480 Output Total 450 450 375 Balance 630 900 105 Weight 93.5 kg Intake: Oral 1080 1350 480 Output: Urine 450 450 375 Other: Voiding Method Urinal Toilet Toilet Urinal Urinal # Voids 3 2 # Bowel Movements 1 - Exam GENERAL: The patient is alert and oriented x3, not in any acute distress. Well developed, well nourished. HEENT: Pupils are round and equally reacting to light. EOMI. No scleral icterus. No conjunctival pallor. Normocephalic, atraumatic. No pharyngeal erythema. No thyromegaly. CARDIOVASCULAR: S1 and S2 present. No murmurs, rubs, or gallops. PULMONARY: Diminished breath sounds at the bases with audible expiratory wheezi ng noted. ABDOMEN: Soft, nontender, nondistended, normoactive bowel sounds. No palpable organomegaly. MUSCULOSKELETAL: No joint swelling or deformity. EXTREMITIES: No cyanosis, clubbing, or pedal edema. NEUROLOGICAL: Gross neurological examination did not reveal any focal deficits. SKIN: No rashes. - Labs CBC & Chem 7: 05/11/20 05:40 05/11/20 05:40 Labs: Abnormal Lab Results - Last 24 Hours (Table) 05/11/20 05/11/20 05/11/20 Range/Units 05:40 05:40 11:45 RBC 2.76 L (4.30-5.90) m/uL Hgb 7.6 L (13.0-17.5) gm/dL Hct 24.2 L (39.0-53.0) % RDW 18.0 H (11.5-15.5) % Glucose 116 H (74-99) mg/dL Calcium 8.3 L (8.4-10.2) mg/dL Total Protein 6.0 L (6.3-8.2) g/dL Albumin 2.8 L (3.5-5.0) g/dL Urine Protein 1+ H (Negative) Urine Blood Small H (Negative) Ur Leukocyte Esterase Large H (Negative) Urine RBC 15 H (0-5) /hpf Urine WBC >182 H (0-5) /hpf Urine WBC Clumps Many H (None) /hpf Urine Bacteria Many H (None) /hpf Hyaline Casts 29 H (0-2) /lpf Urine Mucus Rare H (None) /hpf Microbiology - Last 24 Hours (Table) 05/09/20 00:25 Urine Culture - Final Urine,Voided Klebsiella pneumoniae Assessment and Plan Assessment: -chest pain with mildly elevated troponins with possibility of acute non-ST elevation myocardial infarction: Status post cardiac catheterization with no further interventions and continue with medical management. Cardiology following -hypertension -Hyperlipidemia -mild hypokalemia, resolved -history of DVT in the past -coronary artery diseasee -History of PE in the past -benign prostatic hypertrophy Plan: Patient to continue with current medications and will resume oral Lasix. Patient was given a dose of IV Lasix as he was having some shortness of breath and wheezing on exam. Patient being evaluated by physical therapy and will reevaluate later today or tomorrow morning as patient continued to require assistance. Patient is refusing rehab at this time but is agreeable to home car e with physical therapy in the outpatient setting. Will repeat a.m. labs and monitor hemoglobin. Patient's hemoglobin is 7.6 today with no bleeding noted. Further recommendations to follow. Anticipate discharge in 24 hours.
[2020-05-11] MEDS: ERTAPENEM 1 GM in SODIUM CHLORIDE 0.9% 50 ML IVPB SCH (16:57)
--- NOTE | 2020-05-11 18:47 | PN ---
PROGRESS NOTE DATE OF DICTATION: 05/11/2020 This patient is a 79-year-old pleasant white male admitted to the hospital with shortness of breath and chest pain. He was noted to have anemia with a hemoglobin of 7.5 g/dL. Iron indices were not consistent with iron deficiency anemia. He denies any abdominal pain. No nausea or vomiting. No rectal bleeding or melena. PHYSICAL EXAMINATION: He appears comfortable. No apparent distress. Vital signs are stable. Blood pressure is 122/86, pulse rate 84 per minute and afebrile. HEENT examination unremarkable. Conjunctivae pink. Sclerae anicteric. Oral cavity no lesions. NECK: No JVD or lymph node enlargement. CHEST: Clear to auscultation. HEART: Regular rate and rhythm. ABDOMEN: Soft. Bowel sounds are positive. No organomegaly. EXTREMITIES: No pedal edema. SKIN: No rashes. NEUROLOGIC: Alert and oriented x3. No focal deficits. LABS: Labs from today show WBC 5.5, hemoglobin 7.6, platelets 182. BUN and creatinine are within normal limits. IMPRESSION: 1. Normocytic anemia. No evidence of iron deficiency. 2. Chest pain with elevated troponins. Cardiology following the patient closely. 3. History of hypertension and hyperlipidemia. RECOMMENDATIONS: 1. Continue current medications. 2. Monitor CBC daily. 3. No plans for any endoscopic intervention at the present time. Will follow with you closely. Thank you for this consultation. MMMERCEDL / ROBERTN: [id number] /
--- NOTE | 2020-05-11 22:48 | P.CONS ---
History of Present Illness - Reason for Consult Consult date: 05/11/20 ESBL uti Requesting physician: Emmie Lombardo - Chief Complaint chest pain x 1 day - History of Present Illness Patient is a 79-year male with a past medical history significant for recurrent dental infection history of for thoracic spine discitis also history of congestive heart failure and coronary disease presenting to the ER at [facility] on May 18, 2020 with chief complaints of chest discomfort which has been mostly anterior part of the chest pressure-like and no significant radiation with associated shortness of breath patient with the symptom has been evaluated by the physician on arrival to the ER patient has been afebrile no fever has been recorded in this patient patient also have a normal white count he did have elevated troponin patient has been diagnosed with non-ST elevated [place] and the patient did have a cardiac catheterization done on May 19, 2020 with evidence of LAD stenosis below the stent with no significant change and thought to be symptom related to his anemia for which GI has been consulted no intervention has been done patient did have a positive urine admission culture has been finalized with ESBL Klebsiella pneumoniae for which infectious disease has been consulted for further management of antibiotic therapy, patient currently denies having any difficulty urination passively burning or frequency suprapubic or flank pain no nausea no vomiting. Review of Systems Positive point has been mentioned in HPI rest of the systems are negative Past Medical History Past Medical History: Coronary Artery Disease (CAD), Heart Failure, Deep Vein Thrombosis (DVT), Hyperlipidemia, Pneumonia, Prostate Disorder, Pulmonary Embolus (PE) Additional Past Medical History / Comment(s): recurrent UTIs,UTI with sepsis, b ladder stones and kidney stones, chronic anemia, chronic low back pain, neuropathy R foot,discitis T 11 12 w/ iv abx History of Any Multi-Drug Resistant Organisms: ESBL Year Discovered:: 12/20/19 ESBL Klebsiella MDRO Source:: Urine Past Surgical History: Appendectomy, Heart Catheterization, Heart Cat heterization With Stent, Prostate Surgery Additional Past Surgical History / Comment(s): lithotripsy 12-08-19,Bladder stone removal 03/2018, TURP, colonoscopy, . Past Anesthesia/Blood Transfusion Reactions: No Reported Reaction Date of Last Stent Placement:: January 2019 Past Psychological History: No Psychological Hx Reported Additional Psychological History / Comment(s): Pt resides with his spouse. He uses no assistive device but they do own a cane and a walker. 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 Smoking Status: Never smoker Past Alcohol Use History: None Reported Past Drug Use History: None Reported - Past Family History Father Family Medical History: No Reported History Additional Family Medical History / Comment(s): Father was healthy and lived to be 95 yrs old. Mother Family Medical History: Hypertension Additional Family Medical History / Comment(s): Mother of a brain tumor at the age of 75yrs. Pt states they never found out if it was cancerous. Medications and Allergies Home Medications Medication Instructions Recorded Confirmed Type Aspirin 81 mg PO DAILY #30 chew 02/24/18 05/08/20 Rx Atorvastatin [Lipitor] 80 mg PO DAILY 05/06/19 05/08/20 History Isosorbide Dinitrate 30 mg PO DAILY 05/08/20 05/08/20 History Famotidine [Pepcid] 20 mg PO BID #30 tablet 05/10/20 Rx Furosemide [Lasix] 20 mg PO DAILY #0 05/10/20 05/08/20 Rx Nitroglycerin Sl Tabs [Nitrostat] 0.4 mg SUBLINGUAL Q5M PRN #30 tab 05/10/20 Rx Potassium Chloride ER [K-Dur 10] 10 meq PO DAILY #30 tab 05/10/20 Rx Allergies Allergy/AdvReac Type Severity Reaction Status Date / Time No Known Allergies Allergy Verified 05/08/20 19:36 Physical Exam Vitals: Vital Signs Temp Pulse Resp BP Pulse Ox 05/11/20 15:07 16 05/11/20 12:00 53 L 16 128/56 96 05/11/20 11:45 16 05/11/20 08:00 98 F 54 L 16 123/71 95 05/11/20 04:00 98.2 F 50 L 18 118/67 96 05/11/20 00:00 98.1 F 52 L 18 125/60 95 05/10/20 20:00 98.8 F 52 L 18 103/55 93 L Intake and Output 05/11/20 05/11/20 05/11/20 06:59 14:59 22:59 Intake Total 450 480 Output Total 250 375 Balance 200 105 Intake: Oral 450 480 Output: Urine 250 375 Other: Voiding Method Toilet Toilet Toilet Urinal Urinal Urinal # Voids 2 1 Weight 93.5 kg GENERAL DESCRIPTION: Elderly male lying in bed, no distress. No tachypnea or accessory muscle of respiration use. HEENT: Shows Pallor , no scleral icterus. Oral mucous membrane is dry. NECK: Trachea central, no thyromegaly. LUNGS: Unlabored breathing. Decreased breath sound at the base. No wheeze or crackle. HEART: S1, S2, regular rate and rhythm. ABDOMEN: Soft, no tenderness , guarding or rigidity EXTREMITIES: No edema of feet. SKIN: No rash, no masses palpable. NEUROLOGICAL: The patient is awake, alert, oriented x3, mood and affect normal. Results CBC & Chem 7: 05/11/20 05:40 05/11/20 05:40 Labs: Abnormal Lab Results - Last 24 Hours (Table) 05/11/20 05/11/20 05/11/20 Range/Units 05:40 05:40 11:45 RBC 2.76 L (4.30-5.90) m/uL Hgb 7.6 L (13.0-17.5) gm/dL Hct 24.2 L (39.0-53.0) % RDW 18.0 H (11.5-15.5) % Glucose 116 H (74-99) mg/dL Calcium 8.3 L (8.4-10.2) mg/dL Total Protein 6.0 L (6.3-8.2) g/dL Albumin 2.8 L (3.5-5.0) g/dL Urine Protein 1+ H (Negative) Urine Blood Small H (Negative) Ur Leukocyte Esterase Large H (Negative) Urine RBC 15 H (0-5) /hpf Urine WBC >182 H (0-5) /hpf Urine WBC Clumps Many H (None) /hpf Urine Bacteria Many H (None) /hpf Hyaline Casts 29 H (0-2) /lpf Urine Mucus Rare H (None) /hpf Microbiology - Last 24 Hours (Table) 05/09/20 00:25 Urine Culture - Final Urine,Voided Klebsiella pneumoniae Assessment and Plan Assessment: 1-patient with a positive UA with multidrug-resistant Klebsiella pneumoniae this patient did have history of recurrent UTIs and complicated history of thoracic spine discitis that may have started as UTI with Enterococcus faecalis the patient currently not have any symptoms of urinary burning or frequency has no pain and did not have any fever or elevated white count possible asymptomatic bacteriuria versus mild cystitis (1) Urinary tract infection Current Visit: No Status: Acute Code(s): N39.0 - URINARY TRACT INFECTION, SITE NOT SPECIFIED SNOMED Code(s): 57318155 Plan: 1-in view of his complicated history of UTIs recommend a short 3-day course of IV Invanz 1 g daily which will be started today and this has been discussed and reviewed with the admitting physician We will follow on clinical condition and cultures to further adjust medication if needed Thank you for this consultation we will follow the patient along with you Time with Patient: Greater than 30
[2020-05-12] MEDS: PANTOPRAZOLE 40 MG TABLET PO SCH (05:49)
[2020-05-12 07:03] LABS: Anisocytosis Slight; Basophils % (A) 0 %; Eosinophils # (A) 0.2 k/uL (0-0.7); Eosinophils % (A) 3 %; HCT 26.4 % (39.0-53.0); HGB 8.3 gm/dL (13.0-17.5); Hypochromasia Slight; Lymphocytes # (A) 1.1 k/uL (1.0-4.8); Lymphocytes % (A) 14 %; MCH 27.6 pg (25.0-35.0); MCHC 31.5 g/dL (31.0-37.0); MCV 87.7 fL (80.0-100.0); Mean Platelet Volume 7.3; Monocytes # (A) 0.5 k/uL (0-1.0); Monocytes % (A) 6 %; Neutrophils # (A) 5.9 k/uL (1.3-7.7); Neutrophils % (A) 74 %; Platelet Count 191 k/uL (150-450); RBC 3.02 m/uL (4.30-5.90); RDW 17.8 % (11.5-15.5)
[2020-05-12 07:16] LABS: Calcium 8.5 mg/dL (8.4-10.2); Potassium 4.1 mmol/L (3.5-5.1)
[2020-05-12] MEDS: ATORVASTATIN 80 MG TAB PO SCH (09:04)
[2020-05-12] MEDS: ASPIRIN 81 MG PO SCH (09:04)
[2020-05-12] MEDS: ISOSORBIDE MONONITRATE ER 30 MG TAB.ER.24H PO SCH (09:04)
[2020-05-12] MEDS: FUROSEMIDE 40 MG TAB PO SCH (09:04)
--- NOTE | 2020-05-12 10:20 | P.PN ---
Subjective Progress Note Date: 05/12/20 This pleasant 79-year-old gentleman who follows with Dr. Alejo in the office. He has a history of CAD, status post percutaneous revascularization of the LAD done by Dr. Lynn in January 2019. Was initially evaluated by Dr. Lancaster recently and was scheduled to undergo elective cardiac catheterization but p resented to the hospital with symptoms of worsening exertional chest discomfort as well as dyspnea on exertion. Underwent cardiac catheterization yesterday revealed patent stent in the LAD with mild to moderate narrowing distal to the stent of about 40-50% which is unchanged compared to cardiac catheterization done in 2018. Symptoms felt likely not related to CAD and more likely related to anemia. GI has been consulted. Overall the patient is feeling fairly well today. Denies complaints of chest discomfort and his breathing is stable. Hemoglobin this morning is 7.5 with a BUN of 21 and creatinine 1.17. He was seen in consultation yesterday by Dr. Vivien Alejo who is recommending iron studies, stool for occult blood and possible endoscopic workup depending on the results. 05/11/2020 Seen and examined this morning resting in bed. This morning he complains of some wheezing, nonproductive cough and some shortness of breath. He feels warm but is afebrile. Vital signs are stable and he's satting 95% on room air. Labs this morning show a hemoglobin of 7.6, BUN 19, creatinine 1.18. 05/12/2020 The patient was seen and examined this morning resting in bed. Continues to complain of some wheezing and shortness of breath. Does not verbalize any significant improvement after IV Lasix yesterday. Chest x-ray yesterday showed basilar atelectasis or infiltrate with tiny left effusion that stable. Labs this morning showed stable hemoglobin at 8.3, BUN 19 and creatinine 1.29. GI is following with no plans for endoscopic evaluation at this time. Urine culture finalized yesterday and showed ESBL Klebsiella pneumoniae and infectious disease has been consulted. Planning for 3 day course of IV Invanz. Objective - Vital Signs Vital signs: Vital Signs Temp 98.4 F 05/12/20 09:00 Pulse 56 L 05/12/20 09:00 Resp 18 05/12/20 09:00 BP 125/77 05/12/20 09:00 Pulse Ox 98 05/12/20 09:00 Intake & Output 05/11/20 05/12/20 05/12/20 18:59 06:59 18:59 Intake Total 720 1020 240 Output Total 375 1150 Balance 345 -130 240 Weight 89.3 kg Intake: Oral 720 1020 240 Output: Urine 375 1150 Other: Voiding Method Toilet Toilet Urinal Urinal # Voids 1 4 - Exam PHYSICAL EXAMINATION: HEENT: Head is atraumatic, normocephalic. Pupils equal, round. Neck is supple. There is no elevated jugular venous pressure. HEART EXAMINATION: Heart sounds regular, S1 and S2 with a systolic ejection murmur. CHEST EXAMINATION: Lungs reveal diminished air entry bilaterally with faint expiratory wheezing throughout. No chest wall tenderness is noted on palpation or with deep breathing. ABDOMEN: Soft, nontender. Bowel sounds are heard. No organomegaly noted. EXTREMITIES: 2+ peripheral pulses with no evidence of peripheral edema and no calf tenderness noted. Right femoral puncture site soft without hematoma or ecchymosis. NEUROLOGIC patient is awake, alert and oriented x3. . - Labs CBC & Chem 7: 05/12/20 05:59 05/12/20 05:59 Labs: Abnormal Lab Results - Last 24 Hours (Table) 05/11/20 05/12/20 05/12/20 Range/Units 11:45 05:59 05:59 RBC 3.02 L (4.30-5.90) m/uL Hgb 8.3 L (13.0-17.5) gm/dL Hct 26.4 L (39.0-53.0) % RDW 17.8 H (11.5-15.5) % Creatinine 1.29 H (0.66-1.25) mg/dL Glucose 118 H (74-99) mg/dL Urine Protein 1+ H (Negative) Urine Blood Small H (Negative) Ur Leukocyte Esterase Large H (Negative) Urine RBC 15 H (0-5) /hpf Urine WBC >182 H (0-5) /hpf Urine WBC Clumps Many H (None) /hpf Urine Bacteria Many H (None) /hpf Hyaline Casts 29 H (0-2) /lpf Urine Mucus Rare H (None) /hpf Microbiology - Last 24 Hours (Table) 05/09/20 00:25 Urine Culture - Final Urine,Voided Klebsiella pneumoniae Assessment and Plan Assessment: #1 chest discomfort with elevation of troponins, felt to be more related to anemia as cardiac catheterization showed patent stent with no change in 40-50% lesion distal to the stented portion #2 anemia #3 hyperlipidemia #4 hypertension #5 abnormal renal functions #6 symptoms or shortness of breath and wheezing with cough #7 UTI with multidrug resistant Klebsiella pneumoniae on IV Invanz being followed by ID Plan: From cardiology's perspective, medications were reviewed and we will continue the same. At this time we'll follow the patient on an as-needed basis. Please do not hesitate to contact us with questions. [employer] note has been reviewed, I agree with a documented findings and plan of care. Patient was seen and examined.
--- NOTE | 2020-05-12 12:28 | P.PN ---
Subjective Progress Note Date: 05/12/20 Principal diagnosis: 79-year-old male is admitted for possible non-ST elevation microinfarction with mildly elevated troponin, underwent diagnostic catheterization which did not re quire any intervention Constitutional: Denied any fatigue denied any fever. Cardio vascular: denied any chest pain, palpitations Gastrointestinal denied any nausea vomiting Pulmonary: Denied any shortness of breath cough Neurologic denied any new focal deficits All inpatient medications were reviewed and appropriate changes in these medications as dictated in the interval history and assessment and plan. 05/11/2020 Patient is seen and evaluated in follow-up and is having some shortness of rocky ath with wheezing noted. Patient had a chest x-ray which shows some basilar atelectasis or infiltrate with tiny left effusion is stable. Patient will be given a dose of IV Lasix and will be resumed on oral Lasix. Patient being evaluated by PT/OT as he was requiring assistance and having trouble with gait. Patient still adamant about going home and does not want to go to rehab although is concerned about safely going home. Patient and family may be agreeable to home care with physical therapy in the outpatient setting. Currently no reports of chest pain or palpitations. Patient is afebrile. No reports of nausea or vomiting and patient is tolerating diet. Cardiology and GI following the patient as well. 05/12/2020 Patient is seen and evaluated in follow-up today and states his shortness of breath has slightly improved although continues to notice the wheezing and intermittent shortness of breath with exertion. Physical therapy to work with the patient again as patient continues to refuse rehab but will be going home with home care when stabilized and discharged. Patient's urine culture finalized showing Klebsiella pneumonia and infectious disease is following. Given patient's history of frequent UTIs with ESBL patient will continue on Invanz for 3 days prior to discharge. Currently no reports of chest pain or palpitations. Patient is afebrile. No reports of nausea or vomiting and patient is tolerating diet. Patient is having bowel movements and states he had one yesterday with no blood noted. Hemoglobin is stable this morning at 8.3. Current creatinine slightly elevated at 1.29 although was given a dose of Lasix yesterday. Patient was resumed on oral Lasix dose that he normally takes. Will repeat a.m. labs. Instructed the patient to continue to increase activity as tolerated. Objective - Vital Signs Vital signs: Vital Signs Temp 98.4 F 05/12/20 09:00 Pulse 57 L 05/12/20 11:40 Resp 16 05/12/20 11:40 BP 123/58 05/12/20 11:40 Pulse Ox 96 05/12/20 11:40 Intake & Output 05/11/20 05/12/20 05/12/20 18:59 06:59 18:59 Intake Total 720 1020 240 Output Total 375 1150 200 Balance 345 -130 40 Weight 89.3 kg Intake: Oral 720 1020 240 Output: Urine 375 1150 200 Other: Voiding Method Toilet Toilet Toilet Urinal Urinal Urinal # Voids 1 4 - Exam GENERAL: The patient is alert and oriented x3, not in any acute distress. Well developed, well nourished. HEENT: Pupils are round and equally reacting to light. EOMI. No scleral icterus. No conjunctival pallor. Normocephalic, atraumatic. No pharyngeal erythema. No thyromegaly. CARDIOVASCULAR: S1 and S2 present. No murmurs, rubs, or gallops. PULMONARY: Diminished breath sounds at the bases with minimal expiratory wheezing noted. Approved from yesterday ABDOMEN: Soft, nontender, nondistended, normoactive bowel sounds. No palpable organomegaly. MUSCULOSKELETAL: No joint swelling or deformity. EXTREMITIES: No cyanosis, clubbing, or pedal edema. NEUROLOGICAL: Gross neurological examination did not reveal any focal deficits. SKIN: No rashes. - Labs CBC & Chem 7: 05/12/20 05:59 05/12/20 05:59 Labs: Abnormal Lab Results - Last 24 Hours (Table) 05/12/20 05/12/20 Range/Units 05:59 05:59 RBC 3.02 L (4.30-5.90) m/uL Hgb 8.3 L (13.0-17.5) gm/dL Hct 26.4 L (39.0-53.0) % RDW 17.8 H (11.5-15.5) % Creatinine 1.29 H (0.66-1.25) mg/dL Glucose 118 H (74-99) mg/dL Microbiology - Last 24 Hours (Table) 05/09/20 00:25 Urine Culture - Final Urine,Voided Klebsiella pneumoniae Assessment and Plan Assessment: -chest pain with mildly elevated troponins with possibility of acute non-ST elevation myocardial infarction: Status post cardiac catheterization with no further interventions and continue with medical management. Cardiology fol lowing -hypertension -Hyperlipidemia -Acute urinary tract infection, culture showing Klebsiella pneumonia with ESBL -mild hypokalemia, resolved -history of DVT in the past -coronary artery diseasee -History of PE in the past -benign prostatic hypertrophy Plan: Patient to continue with current medications and symptomatic treatment. PT/OT following. Urine cultures finalized showing Klebsiella pneumonia and infectious disease is following. Given patient's history of ESBL and frequent UTIs patient will continue on Invanz for 3 days. Will repeat a.m. labs and monitor hemoglobin. Patient's hemoglobin is 8.3 today with no bleeding noted. Instructed the patient to increase activity as tolerated. Patient continues to refuse rehab but is agreeable to home care when stabilized and discharged. Case Management following and assisting with discharge planning needs. Further recommendations to follow. Anticipate discharge in 24-48 hours.
--- NOTE | 2020-05-12 15:53 | PN ---
PROGRESS NOTE DATE OF SERVICE: 05/12/2020 REASON FOR FOLLOWUP: ESBL E coli urinary tract infection. INTERVAL HISTORY: The patient is currently afebrile. The patient is breathing more comfortably. Denies having any chest pain or shortness of breath or cough. No abdominal pain. Did mention he was about to go to urinate but did not make enough urine; does not feel full, though. No diarrhea. PHYSICAL EXAMINATION: The patient's blood pressure is 123/58 with a pulse of 57, temperature 98.4. He is 96% on room air. General description is an elderly male up in the chair in no distress. RESPIRATORY SYSTEM: Unlabored breathing. Clear to auscultation anteriorly. HEART: S1, S2. Regular rate and rhythm. ABDOMEN: Soft. No tenderness. LABS: Hemoglobin 8.3, white count 8.0, BUN of 17, creatinine 1.29. DIAGNOSTIC IMPRESSION AND PLAN: Patient with a positive urine culture with extended-spectrum beta-lactamase Klebsiella in this patient who has a previous history of complicated urinary tract infection with secondary diskitis. Patient is currently on Invanz 1 gram daily while waiting for the repeat culture to finalize. Continue with supportive care. MMODL / IJN: [id number] /
[2020-05-12] MEDS: ERTAPENEM 1 GM in SODIUM CHLORIDE 0.9% 50 ML IVPB SCH (16:56)
--- NOTE | 2020-05-12 17:29 | CDI ---
Documentation Clarification Form Date: 05/12/2020 02:27 PM From: Katherine Trevizo RN CCDS Admit Date: 05/08/2020 09:48:00 PM Patient Name: Rafiq Cook Visit Number: [id number] Discharge Date: ATTENTION: The Clinical Documentation Specialists (CDI) and [facility] Coding Staff appreciate your assistance in clarifying documentation. Please respond to the clarification below the line at the bottom and electronically sign. The CDI & [facility] Coding staff will review the response and follow-up if needed. Please note: Queries are made part of the Legal Health Record. If you have any questions, please contact the author of this message via ITS. Dr. Marine Hurtado Chest Pain with mildly elevated troponins with possibility for acute non-St elevation OK documented in Internal Medicine progress notes 05/11 and 05/12 Patient History/Risk Factors: 79-year-old male presents to the ED for persistent weakness and chest pain. Scheduled for heart catheterization. Medical history CHF, HTN, HLD Clinical Indicators: 05/09 Cardiac Cath: Patients symptoms are probably not related to the coronary artery disease. They are more likely related to the anemia. 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 Troponin: 05/08 0.235; 05/09 02.31; 05/09 0.218 HGB 05/08 9.1; 05/09 - 8.7; 05/10 - 7.5; 05/12 - 8.3 05/08 EKG Results: Sinus rhythm with premature atrial complexes. Rightward axis Prolonged QT GI Progress note Normocytic anemia and __. not consistent with iron deficiency anemia most likely dealing with anemia of chronic disease. Treatment: 05/08 Heparin Ivpb d/c 05/09, 05/09 Nitrostat Sublingual Prn, 05/08 0.9ns 2L bolus. Cardiac Catheterization For accurate documentation please indicate the Type and underlying etiology of the OK: OK Type 2 secondary to (please specify) __XXXX OK Ruled Out Unable to determine Other Condition, (please specify) (Last Revision: December 2019) MTDD
--- NOTE | 2020-05-12 17:30 | CDI ---
Documentation Clarification Form Date: 05/12/2020 02:23:24 PM From: Katherine Trevizo Admit Date: 05/08/2020 09:48:00 PM Patient Name: Rafiq Cook Visit Number: [id number] Discharge Date: ATTENTION: The Clinical Documentation Specialists (CDI) and [facility] Coding Staff appreciate your assistance in clarifying documentation. Please respond to the clarification below the line at the bottom and electronically sign. The CDI & [facility] Coding staff will review the response and follow-up if needed. Please note: Queries are made part of the Legal Health Record. If you have any questions, please contact the author of this message via ITS. Dr. Marine Hurtado CHF is documented in the H&P 05/08 under medical history. History/Risk Factors: 79-year-old male presents to the ED for persistent weakness and chest pain. Scheduled for heart catheterization. Medical history CHF, HTN, HLD Clinical Indicators: 05/08 VS/Pulse OX: B/P 71/45; HR 63; T 98 F; RR 18; SpO2 94% room air 05/08 BNP: 3560 02/16/2019 Echocardiogram Results: Moderate concentric left ventricular hypertrophy. Overall left ventricular systolic function is normal with, an EF 55-60% Mild aortic regurgitation. Trace tricuspid regurgitation. Trace mitral regurgitation. 05/08 Chest X Ray: mild atelectasis left lung base Treatment: 05/09 Imdur PO Daily; 05/11 Lasix 40mg Iv x1; 05/12 Lasix 40mg PO Daily In your professional opinion, can you please clarify the acuity and type of CHF if known? Acute on Chronic Diastolic CHF Chronic Diastolic CHF XXXX Heart failure ruled out Unable to Determine Other, please specify (Last Revision: March 2018) MTDD
--- NOTE | 2020-05-12 18:19 | PN ---
PROGRESS NOTE DATE OF DICTATION: 05/12/2020 This patient is a 79-year-old pleasant white male admitted to the hospital with chest pain, shortness of breath, underwent cardiac catheterization 3 days ago that was unremarkable. He was noted to have anemia and hence we were consulted. We have been following the patient closely. He denies any abdominal pain. No nausea, vomiting. His shortness of breath has significantly improved. He reports decreased appetite, fatigue and weakness. PHYSICAL EXAMINATION: Vital signs are stable. Blood pressure is 123/58, pulse rate 57, temperature 98.4. HEENT examination unremarkable. Conjunctivae pink. Sclerae anicteric. Oral cavity no lesions. NECK: No JVD or lymph node enlargement. CHEST: Clear to auscultation. HEART: Regular rate and rhythm. ABDOMEN: Soft. Bowel sounds are positive. No organomegaly. EXTREMITIES: No pedal edema. NEUROLOGIC: Alert and oriented x3. No focal deficits. LABS: Labs from today show WBC 8, hemoglobin 8.3, platelets 191. BUN 19, creatinine 1.27. IMPRESSION: 1. Symptomatic anemia with a hemoglobin of 8.3 g/dL. Continues to remain stable. No active bleeding noted. Iron indices not consistent with iron deficiency anemia. 2. History of coronary artery disease. 3. Hypertension. 4. Hyperlipidemia. 5. Acute urinary tract infection, on broad-spectrum antibiotics. RECOMMENDATIONS: 1. Monitor CBC daily. 2. Continue with symptomatic and supportive care. 3. No plans for any endoscopic intervention at the present time. 4. Will sign off at this time. Please call us if needed. Thank you for this consultation. MMODL / IJN: [id number] /
[2020-05-13] MEDS: PANTOPRAZOLE 40 MG TABLET PO SCH (05:53)
[2020-05-13 07:04] LABS: Anisocytosis Slight; Basophils % (A) 0 %; Eosinophils # (A) 0.3 k/uL (0-0.7); Eosinophils % (A) 5 %; HGB 8.2 gm/dL (13.0-17.5); Hypochromasia Slight; Lymphocytes # (A) 1.2 k/uL (1.0-4.8); Lymphocytes % (A) 18 %; MCH 28.7 pg (25.0-35.0); MCHC 32.7 g/dL (31.0-37.0); MCV 87.7 fL (80.0-100.0); Mean Platelet Volume 7.8; Monocytes # (A) 0.4 k/uL (0-1.0); Monocytes % (A) 6 %; Neutrophils # (A) 4.6 k/uL (1.3-7.7); Neutrophils % (A) 69 %; Platelet Count 209 k/uL (150-450); RBC 2.85 m/uL (4.30-5.90); RDW 17.6 % (11.5-15.5); WBC 6.6 k/uL (3.8-10.6)
[2020-05-13 07:18] LABS: Calcium 8.4 mg/dL (8.4-10.2)
[2020-05-13] MEDS: ISOSORBIDE MONONITRATE ER 30 MG TAB.ER.24H PO SCH (08:24)
[2020-05-13] MEDS: FUROSEMIDE 40 MG TAB PO SCH (08:24)
[2020-05-13] MEDS: ASPIRIN 81 MG PO SCH (08:24)
[2020-05-13] MEDS: ATORVASTATIN 80 MG TAB PO SCH (08:24)
[2020-05-13] MEDS: ERTAPENEM 1 GM in SODIUM CHLORIDE 0.9% 50 ML IVPB SCH (16:30)
[2020-05-13] MEDS: SODIUM FERRIC GLUCONAT-SUCROSE 125 MG in SODIUM CHLORIDE 0.9% 100 ML IVPB SCH (16:38)
--- NOTE | 2020-05-13 22:42 | PN ---
PROGRESS NOTE DATE OF SERVICE: 05/13/2020 REASON FOR FOLLOWUP: ESBL E coli urinary tract infection. INTERVAL HISTORY: The patient is currently afebrile, has been breathing comfortably. Denies having any chest pain or shortness of breath on exertion. No nausea, vomiting. No abdominal pain or diarrhea. PHYSICAL EXAMINATION: Blood pressure 106/58 with a pulse of 49, temperature is 97.8. He is 95% on room air. General description is an elderly male lying in bed in no distress. Respiratory system: Unlabored breathing, decreased breath sounds, no wheeze. Heart S1, S2. Regular rate and rhythm. Abdomen soft, no tenderness. LAB: Repeat urine was ordered, not done. DIAGNOSTIC IMPRESSION AND PLAN: Patient with ESBL Klebsiella positive urine culture, question of cystitis. This patient did have a history of complicated UTI, currently on Invanz to continue while waiting for urine repeat to finalize. Continue supportive care. MMODL / IJN: [id number] /
[2020-05-14] MEDS: PANTOPRAZOLE 40 MG TABLET PO SCH ×2 (05:24→08:38)
[2020-05-14] MEDS: ATORVASTATIN 80 MG TAB PO SCH (08:37)
[2020-05-14] MEDS: ASPIRIN 81 MG PO SCH (08:38)
[2020-05-14] MEDS: FUROSEMIDE 40 MG TAB PO SCH (08:38)
[2020-05-14] MEDS: ISOSORBIDE MONONITRATE ER 30 MG TAB.ER.24H PO SCH (08:38)
[2020-05-14] MEDS: SODIUM FERRIC GLUCONAT-SUCROSE 125 MG in SODIUM CHLORIDE 0.9% 100 ML IVPB SCH (11:47)
[2020-05-14] MEDS: IPRATROPIUM-ALBUTEROL 3 ML NEB INHALATION PRN ×2 (12:05→20:30)
[2020-05-14] MEDS: FLUTICASONE 50MCG/SPRAY NASAL 16GM EA NOSTRIL SCH (13:03)
[2020-05-14] MEDS: ERTAPENEM 1 GM in SODIUM CHLORIDE 0.9% 50 ML IVPB SCH (16:43)
[2020-05-14 19:15] LABS: Appearance,Urine Clear (Clear); Bilirubin,Urine Negative (Negative); Blood,Urine Negative (Negative); Color,Urine Yellow; Glucose,Urine (UA) Negative (Negative); Ketones,Urine Negative (Negative); Leukocyte Esterase,Urine Moderate (Negative); Mucus,Urine Rare /hpf; Nitrite,Urine Negative (Negative); Protein,Urine Trace (Negative); RBC,Urine 1 /hpf (0-5); Specific Gravity,Urine 1.014 (1.001-1.035); Squamous Epithelial Cell,Urine <1 /hpf (0-4); WBC,Urine 23 /hpf (0-5)
--- NOTE | 2020-05-15 00:04 | P.PN ---
Subjective Progress Note Date: 05/13/20 Principal diagnosis: chest pain ESBL UTI 79-year-old male is admitted for possible non-ST elevation microinfarction with mildly elevated troponin, underwent diagnostic catheterization which did not require any intervention Constitutional: Denied any fatigue denied any fever. Cardio vascular: denied any chest pain, palpitations Gastrointestinal denied any nausea vomiting Pulmonary: Denied any shortness of breath cough Neurologic denied any new focal deficits All inpatient medications were reviewed and appropriate changes in these medications as dictated in the interval history and assessment and plan. 05/11/2020 Patient is seen and evaluated in follow-up and is having some shortness of breath with wheezing noted. Patient had a chest x-ray which shows some basilar atelectasis or infiltrate with tiny left effusion is stable. Patient will be given a dose of IV Lasix and will be resumed on oral Lasix. Patient being evaluated by PT/OT as he was requiring assistance and having trouble with gait. Patient still adamant about going home and does not want to go to rehab although is concerned about safely going home. Patient and family may be agreeable to home care with physical therapy in the outpatient setting. Currently no reports of chest pain or palpitations. Patient is afebrile. No reports of nausea or vomiting and patient is tolerating diet. Cardiology and GI following the patient as well. 05/12/2020 Patient is seen and evaluated in follow-up today and states his shortness of breath has slightly improved although continues to notice the wheezing and intermittent shortness of breath with exertion. Physical therapy to work with the patient again as patient continues to refuse rehab but will be going home with home care when stabilized and discharged. Patient's urine culture finalized showing Klebsiella pneumonia and infectious disease is following. Given patient's history of frequent UTIs with ESBL patient will continue on Invanz for 3 days prior to discharge. Currently no reports of chest pain or palpitations. Patient is afebrile. No reports of nausea or vomiting and patient is tolerating diet. Patient is having bowel movements and states he had one yesterday with no blood noted. Hemoglobin is stable this morning at 8.3. Current creatinine slightly elevated at 1.29 although was given a dose of Lasix yesterday. Patient was resumed on oral Lasix dose that he normally takes. Will repeat a.m. labs. Instructed the patient to continue to increase activity as tolerated. 05/13/2020 Patient is currently sitting on the side of the bed comfortably. Does have shortness of breath with ambulation. Hemoglobin is fairly stable. Patient is being continued on antibiotics in the form of ertapenem for ESBL urinary tract infection. Repeat urine cultures are no growth so far. ID is following. No complaints of chest pain. No nausea vomiting abdominal pain or diarrhea. Creatinine level improved to 0.99 hemoglobin is 8.2. Current medications reviewed. Objective - Vital Signs Vital signs: Vital Signs Temp 97.8 F 05/13/20 19:57 Pulse 49 L 05/13/20 19:57 Resp 18 05/13/20 19:59 BP 106/58 05/13/20 19:57 Pulse Ox 95 05/13/20 19:57 Intake & Output 05/13/20 05/13/20 05/14/20 06:59 18:59 06:59 Intake Total 600 Balance 600 Weight 89.2 kg Intake: Oral 600 Other: Voiding Method Toilet Urinal # Voids 2 1 - Exam GENERAL: The patient is alert and oriented x3, not in any acute distress. Well developed, well nourished. HEENT: Pupils are round and equally reacting to light. EOMI. No scleral icterus. No conjunctival pallor. Normocephalic, atraumatic. No pharyngeal erythema. No thyromegaly. CARDIOVASCULAR: S1 and S2 present. No murmurs, rubs, or gallops. PULMONARY: Diminished breath sounds at the bases with minimal expiratory wheezing noted. Approved from yesterday ABDOMEN: Soft, nontender, nondistended, normoactive bowel sounds. No palpable organomegaly. MUSCULOSKELETAL: No joint swelling or deformity. EXTREMITIES: No cyanosis, clubbing, or pedal edema. NEUROLOGICAL: Gross neurological examination did not reveal any focal deficits. SKIN: No rashes. - Labs CBC & Chem 7: 05/13/20 06:45 05/13/20 06:45 Labs: Abnormal Lab Results - Last 24 Hours (Table) 05/13/20 05/13/20 Range/Units 06:45 06:45 RBC 2.85 L (4.30-5.90) m/uL Hgb 8.2 L (13.0-17.5) gm/dL Hct 25.0 L (39.0-53.0) % RDW 17.6 H (11.5-15.5) % BUN 21 H (9-20) mg/dL Glucose 113 H (74-99) mg/dL Assessment and Plan Assessment: -chest pain with mildly elevated troponins with possibility of acute non-ST elevation myocardial infarction: Status post cardiac catheterization with no further interventions and continue with medical management. Cardiology following -hypertension -Hyperlipidemia -Acute urinary tract infection, culture showing Klebsiella pneumonia with ESBL -Iron deff Anemia -mild hypokalemia, resolved -history of DVT in the past -coronary artery diseasee -History of PE in the past -benign prostatic hypertrophy Plan: Patient to continue with current medications and symptomatic treatment. PT/OT following. Urine cultures finalized showing Klebsiella pneumonia and infectious disease is following. Given patient's history of ESBL and frequent UTIs patient will continue on Invanz . repeat urine cx not finalized. Patient's hemoglobin is 8.3 today with no bleeding noted. Instructed the patient to increase activity as tolerated. Patient continues to refuse rehab but is agreeable to home care when stabilized and discharged. Case Management following and assisting with discharge planning needs. Further recommendations to follow. Anticipate discharge in 24-48 hours. Time with Patient: Greater than 30
--- NOTE | 2020-05-15 00:08 | P.PN ---
Subjective Progress Note Date: 05/14/20 Principal diagnosis: chest pain ESBL UTI 79-year-old male is admitted for possible non-ST elevation microinfarction with mildly elevated troponin, underwent diagnostic catheterization which did not require any intervention Constitutional: Denied any fatigue denied any fever. Cardio vascular: denied any chest pain, palpitations Gastrointestinal denied any nausea vomiting Pulmonary: Denied any shortness of breath cough Neurologic denied any new focal deficits All inpatient medications were reviewed and appropriate changes in these medications as dictated in the interval history and assessment and plan. 05/11/2020 Patient is seen and evaluated in follow-up and is having some shortness of breath with wheezing noted. Patient had a chest x-ray which shows some basilar atelectasis or infiltrate with tiny left effusion is stable. Patient will be given a dose of IV Lasix and will be resumed on oral Lasix. Patient being evaluated by PT/OT as he was requiring assistance and having trouble with gait. Patient still adamant about going home and does not want to go to rehab although is concerned about safely going home. Patient and family may be agreeable to home care with physical therapy in the outpatient setting. Currently no reports of chest pain or palpitations. Patient is afebrile. No reports of nausea or vomiting and patient is tolerating diet. Cardiology and GI following the patient as well. 05/12/2020 Patient is seen and evaluated in follow-up today and states his shortness of breath has slightly improved although continues to notice the wheezing and intermittent shortness of breath with exertion. Physical therapy to work with the patient again as patient continues to refuse rehab but will be going home with home care when stabilized and discharged. Patient's urine culture finalized showing Klebsiella pneumonia and infectious disease is following. Given patient's history of frequent UTIs with ESBL patient will continue on Invanz for 3 days prior to discharge. Currently no reports of chest pain or palpitations. Patient is afebrile. No reports of nausea or vomiting and patient is tolerating diet. Patient is having bowel movements and states he had one yesterday with no blood noted. Hemoglobin is stable this morning at 8.3. Current creatinine slightly elevated at 1.29 although was given a dose of Lasix yesterday. Patient was resumed on oral Lasix dose that he normally takes. Will repeat a.m. labs. Instructed the patient to continue to increase activity as tolerated. 05/13/2020 Patient is currently sitting on the side of the bed comfortably. Does have shortness of breath with ambulation. Hemoglobin is fairly stable. Patient is being continued on antibiotics in the form of ertapenem for ESBL urinary tract infection. Repeat urine cultures are no growth so far. ID is following. No complaints of chest pain. No nausea vomiting abdominal pain or diarrhea. Creatinine level improved to 0.99 hemoglobin is 8.2. 05/14/2020 Patient is awake alert and oriented x3. Does have some exertional dyspnea. Mild wheezing was noted on examination. Patient was started on breathing treatments. Patient is otherwise continued on IV iron supplementation due to iron deficiency. Repeat urine cultures are not finalized yet. Currently being continued on antibiotics in the form of ertapenem. ID is following. Follow-up hemoglobin tomorrow. Current medications reviewed. Objective - Vital Signs Vital signs: Vital Signs Temp 98 F 05/14/20 19:27 Pulse 54 L 05/14/20 20:32 Resp 20 05/14/20 19:27 BP 112/63 05/14/20 19:27 Pulse Ox 95 05/14/20 19:27 Intake & Output 05/14/20 05/14/20 05/15/20 06:59 18:59 06:59 Intake Total 956 Output Total 200 Balance -200 956 Weight 90.4 kg Intake: Oral 956 Output: Urine 200 Other: Voiding Method Toilet Toilet Urinal Urinal # Voids 1 3 - Exam GENERAL: The patient is alert and oriented x3, not in any acute distress. Well developed, well nourished. HEENT: Pupils are round and equally reacting to light. EOMI. No scleral icterus. No conjunctival pallor. Normocephalic, atraumatic. No pharyngeal erythema. No thyromegaly. CARDIOVASCULAR: S1 and S2 present. No murmurs, rubs, or gallops. PULMONARY: Diminished breath sounds at the bases with minimal expiratory wheezing noted. Approved from yesterday ABDOMEN: Soft, nontender, nondistended, normoactive bowel sounds. No palpable organomegaly. MUSCULOSKELETAL: No joint swelling or deformity. EXTREMITIES: No cyanosis, clubbing, or pedal edema. NEUROLOGICAL: Gross neurological examination did not reveal any focal deficits. SKIN: No rashes. - Labs CBC & Chem 7: 05/13/20 06:45 05/13/20 06:45 Labs: Abnormal Lab Results - Last 24 Hours (Table) 05/14/20 Range/Units 18:00 Urine Protein Trace H (Negative) Ur Leukocyte Esterase Moderate H (Negative) Urine WBC 23 H (0-5) /hpf Urine Mucus Rare H (None) /hpf Assessment and Plan Assessment: -chest pain with mildly elevated troponins with possibility of acute non-ST elevation myocardial infarction: Status post cardiac catheterization with no further interventions and continue with medical management. Cardiology following -hypertension -Hyperlipidemia -Acute urinary tract infection, culture showing Klebsiella pneumonia with ESBL -Iron deff Anemia -mild hypokalemia, resolved -history of DVT in the past -coronary artery diseasee -History of PE in the past -benign prostatic hypertrophy Plan: Patient to continue with current medications and symptomatic treatment. PT/OT following. Urine cultures finalized showing Klebsiella pneumonia and infectious disease is following. Given patient's history of ESBL and frequent UTIs patient will continue on Invanz . repeat urine cx not finalized. Patient's hemoglobin is 8.3 today with no bleeding noted. Instructed the patient to increase activity as tolerated. Patient continues to refuse rehab but is agreeable to home care when stabilized and discharged. Case Management following and assisting with discharge planning needs. Further recommendations to follow. Anticipate discharge in 24-48 hours. Time with Patient: Greater than 30
--- NOTE | 2020-05-15 00:57 | PN ---
PROGRESS NOTE DATE OF SERVICE: 05/14/2020 REASON FOR FOLLOWUP: ESBL Klebsiella urinary tract infection. INTERVAL HISTORY: The patient is currently afebrile. The patient is breathing comfortably. Patient denies having any chest pain or shortness of breath or cough. No abdominal pain and no urinary symptoms. PHYSICAL EXAMINATION: Blood pressure 112/63 with a pulse of 51, temperature of 98. He is 95% on room air. General description is an elderly male up in the chair in no distress. RESPIRATORY SYSTEM: Unlabored breathing, clear to auscultation anteriorly. HEART: S1, S2. Regular rate and rhythm. ABDOMEN: Soft, no tenderness. LABS: is relatively clear with a white count 6.6. DIAGNOSTIC IMPRESSION AND PLAN: Patient with ESBL Klebsiella urinary tract infection, possible cystitis adequately treated. not significantly positive. Plan at this time is to discontinue the ertapenem on discharge and monitor clinical course closely. MMODL / IJN: [id number] /
[2020-05-15 06:37] LABS: Anisocytosis Slight; Basophils % (A) 0 %; Eosinophils # (A) 0.2 k/uL (0-0.7); Eosinophils % (A) 4 %; HCT 25.3 % (39.0-53.0); HGB 8.2 gm/dL (13.0-17.5); Hypochromasia Moderate; Lymphocytes # (A) 1.4 k/uL (1.0-4.8); Lymphocytes % (A) 22 %; MCH 28.7 pg (25.0-35.0); MCHC 32.4 g/dL (31.0-37.0); MCV 88.5 fL (80.0-100.0); Mean Platelet Volume 7.6; Monocytes # (A) 0.4 k/uL (0-1.0); Monocytes % (A) 6 %; Neutrophils # (A) 4.3 k/uL (1.3-7.7); Neutrophils % (A) 67 %; Platelet Count 234 k/uL (150-450); RBC 2.86 m/uL (4.30-5.90); RDW 18.1 % (11.5-15.5); WBC 6.4 k/uL (3.8-10.6)
[2020-05-15 06:45] LABS: Calcium 8.6 mg/dL (8.4-10.2)
[2020-05-15] MEDS: IPRATROPIUM-ALBUTEROL 3 ML NEB INHALATION PRN (07:38)
[2020-05-15 08:22] VITALS: TEMP 97.5
[2020-05-15] MEDS: ATORVASTATIN 80 MG TAB PO SCH (08:56)
[2020-05-15] MEDS: FUROSEMIDE 40 MG TAB PO SCH (08:56)
[2020-05-15] MEDS: ASPIRIN 81 MG PO SCH (08:56)
[2020-05-15] MEDS: ISOSORBIDE MONONITRATE ER 30 MG TAB.ER.24H PO SCH (08:56)
[2020-05-15] MEDS: FLUTICASONE 50MCG/SPRAY NASAL 16GM EA NOSTRIL SCH (08:56)
[2020-05-15] MEDS: SODIUM FERRIC GLUCONAT-SUCROSE 125 MG in SODIUM CHLORIDE 0.9% 100 ML IVPB SCH (08:57)
[2020-05-15 12:08] VITALS: BP 122/70; PULSE 55; RESP 20
--- NOTE | 2020-05-15 17:12 | PN ---
PROGRESS NOTE DATE OF SERVICE: 05/15/2020 REASON FOR FOLLOWUP: ESBL E coli urinary tract infection. INTERVAL HISTORY: The patient is currently afebrile, has been breathing comfortably. Denies having any chest pain. No shortness of breath or cough. No nausea, no abdominal pain or diarrhea. Urinary symptoms no. PHYSICAL EXAMINATION: Blood pressure 120/70 with a pulse of 55, temperature 97.5. He is 97% on room air. General description is an elderly male, up in the chair in no distress. RESPIRATORY SYSTEM: Unlabored breathing, clear to auscultation anteriorly. HEART: S1, S2. Regular rate and rhythm. ABDOMEN: Soft, no tenderness. LABS: Hemoglobin 8.8, white count 6.4, creatinine 1.16. DIAGNOSTIC IMPRESSION AND PLAN: Patient with ESBL Klebsiella urinary tract infection, possible cystitis. Clinically doubt deep infection, adequately treated. Repeat urine is not significantly positive, no need for antibiotic on discharge. Continue supportive care. MMODL / IJN: [id number] /
== END 2020-05-15 15:24 | disposition home health service (06) | DRG 811 ==
LOC: EC 18:39 → 3SCARD 21:48 → 2SICU 05-09 00:42 → 3SCARD 05-09 12:43
PROVIDERS: ADMIT Hospitalist; ATTEND Hospitalist
PROC: B2111ZZ Fluoroscopy of Multiple Coronary Arteries using Low Osmolar Contrast (ICD-10-PCS; principal; 2020-05-09 08:20)
PROC: 4A023N7 Measurement of Cardiac Sampling and Pressure, Left Heart, Percutaneous Approach (ICD-10-PCS; principal; 2020-05-09 08:20)
DX: D63.8 Anemia in other chronic diseases classified elsewhere (principal); I21.A1 Myocardial infarction type 2; I13.0 Hypertensive heart and chronic kidney disease with heart failure and stage 1 through stage 4 chronic kidney disease, or unspecified chronic kidney disease; E87.1 Hypo-osmolality and hyponatremia; J98.11 Atelectasis; Z16.12 Extended spectrum beta lactamase (ESBL) resistance; Z16.24 Resistance to multiple antibiotics; I50.9 Heart failure, unspecified; N30.90 Cystitis, unspecified without hematuria; N18.9 Chronic kidney disease, unspecified; I25.10 Atherosclerotic heart disease of native coronary artery without angina pectoris; Z95.5 Presence of coronary angioplasty implant and graft; B96.20 Unspecified Escherichia coli [E. coli] as the cause of diseases classified elsewhere; E66.9 Obesity, unspecified; E78.5 Hyperlipidemia, unspecified; E87.6 Hypokalemia; Z86.711 Personal history of pulmonary embolism; Z86.718 Personal history of other venous thrombosis and embolism; Z11.59 Encounter for screening for other viral diseases; B96.1 Klebsiella pneumoniae [K. pneumoniae] as the cause of diseases classified elsewhere; N40.0 Benign prostatic hyperplasia without lower urinary tract symptoms; Z68.31 Body mass index [BMI] 31.0-31.9, adult; Z79.82 Long term (current) use of aspirin; Z79.899 Other long term (current) drug therapy; Z82.49 Family history of ischemic heart disease and other diseases of the circulatory system; Z87.01 Personal history of pneumonia (recurrent); Z87.440 Personal history of urinary (tract) infections; Z87.442 Personal history of urinary calculi; Z90.49 Acquired absence of other specified parts of digestive tract; G89.29 Other chronic pain; M54.5 Low back pain; G62.9 Polyneuropathy, unspecified; M19.90 Unspecified osteoarthritis, unspecified site; K04.7 Periapical abscess without sinus; Z90.79 Acquired absence of other genital organ(s)
CPT/HCPCS: 36415; 71046; 80048; 80051; 80053; 80061; 81001; 82565; 82607; 82728; 82746; 83540; 83550; 83605; 83735; 83880; 84100; 84132; 84484; 84520; 85025; 85027; 85045; 85610; 85730; 87077; 87086; 87186; 93005; 93458; 94640; 96361; 96365; 96366; 96376; 99291

== ENCOUNTER → 2020-05-08 | Outpatient (CLI) | payer MEDICARE ==
[2020-05-08 12:41] LABS: Potassium 3.9 mmol/L (3.5-5.1)
[2020-05-08 12:44] LABS: Anisocytosis Slight; HCT 27.9 % (39.0-53.0); HGB 9.2 gm/dL (13.0-17.5); Hypochromasia Slight; MCH 28.9 pg (25.0-35.0); MCHC 33.1 g/dL (31.0-37.0); MCV 87.2 fL (80.0-100.0); Platelet Count 270 k/uL (150-450); RBC 3.19 m/uL (4.30-5.90); RDW 17.4 % (11.5-15.5); WBC 13.2 k/uL (3.8-10.6)
== END | disposition home or self-care (01) ==
LOC: LABPAT 10:48
PROVIDERS: ATTEND Internal Medicine Cardiovascular Disease
DX: Z01.818 Encounter for other preprocedural examination (principal); U07.1 COVID-19
CPT/HCPCS: 80051; 82565; 84520; 85027; U0003

== ENCOUNTER → 2020-05-18 | Outpatient (CLI) | payer MEDICARE ==
[2020-05-18 19:12] LABS: African American GFR (CKD) 46.8 (60.0-200.0); Anion Gap 11.8 mmol/L (4.00-12.00); BUN/Creat Ratio 25.63 Ratio (12.00-20.00); Calcium 8.9 mg/dL (8.7-10.3); Carbon Dioxide 24.2 mmol/L (21.6-31.8); Non-African American GFR(CKD) 40.4 (60.0-200.0); Potassium 4.6 mmol/L (3.5-5.5)
== END | disposition home or self-care (01) ==
LOC: LABWHC1 10:26
PROVIDERS: ATTEND Internal Medicine
DX: E87.1 Hypo-osmolality and hyponatremia (principal); I21.A1 Myocardial infarction type 2
CPT/HCPCS: 36415; 80048

== ENCOUNTER → 2020-05-24 | Outpatient (CLI) | payer MEDICARE ==
[2020-05-24 14:04] LABS: Anisocytosis Slight; HCT 33.5 % (39.0-53.0); HGB 10.6 gm/dL (13.0-17.5); Hypochromasia Moderate; MCHC 31.5 g/dL (31.0-37.0); Mean Platelet Volume 7.4; Platelet Count 299 k/uL (150-450); RBC 3.64 m/uL (4.30-5.90); RDW 19.6 % (11.5-15.5)
[2020-05-24 21:04] LABS: % Iron Saturation 22.26 (15.00-50.00); Ferritin 376.7 ng/mL (22.0-322.0)
== END | disposition home or self-care (01) ==
LOC: LABWHC1 12:18
PROVIDERS: ATTEND Physician Assistant
DX: D50.0 Iron deficiency anemia secondary to blood loss (chronic) (principal)
CPT/HCPCS: 36415; 82728; 83540; 83550; 85027

== ENCOUNTER → 2020-06-20 | Outpatient (CLI) | payer MEDICARE ==
[2020-06-20 13:46] LABS: Anisocytosis Slight; Basophils % (A) 0 %; Eosinophils # (A) 0.1 k/uL (0-0.7); Eosinophils % (A) 1 %; HCT 30.6 % (39.0-53.0); HGB 9.3 gm/dL (13.0-17.5); Hypochromasia Marked; Lymphocytes # (A) 1.4 k/uL (1.0-4.8); Lymphocytes % (A) 14 %; MCH 28.9 pg (25.0-35.0); MCHC 30.5 g/dL (31.0-37.0); MCV 94.8 fL (80.0-100.0); Mean Platelet Volume 7.3; Monocytes # (A) 0.5 k/uL (0-1.0); Monocytes % (A) 5 %; Neutrophils # (A) 7.3 k/uL (1.3-7.7); Neutrophils % (A) 77 %; Platelet Count 280 k/uL (150-450); RBC 3.22 m/uL (4.30-5.90); RDW 17.8 % (11.5-15.5); WBC 9.5 k/uL (3.8-10.6)
[2020-06-20 19:35] LABS: African American GFR (CKD) 46.8 (60.0-200.0); Anion Gap 9.7 mmol/L (4.00-12.00); Carbon Dioxide 24.3 mmol/L (21.6-31.8); Non-African American GFR(CKD) 40.4 (60.0-200.0); Potassium 4.9 mmol/L (3.5-5.5)
[2020-06-21 18:48] LABS: % Iron Saturation 13.25 (15.00-50.00)
== END | disposition home or self-care (01) ==
LOC: LABWHC1 12:00
PROVIDERS: ATTEND Internal Medicine
DX: N28.9 Disorder of kidney and ureter, unspecified (principal); D72.829 Elevated white blood cell count, unspecified
CPT/HCPCS: 36415; 80051; 82565; 83540; 83550; 84520; 85025

== ENCOUNTER → 2020-07-07 | Outpatient (CLI) | payer MEDICARE ==
--- NOTE | 2020-07-07 20:57 | XR ---
EXAMINATION TYPE: XR bone survey complete DATE OF EXAM: 07/07/2020 COMPARISON: NONE HISTORY: Monoclonal gammopathy, anemia-Red cell hyperplasia, arthritis, essential hypertension. Bony calvarium : 2 views of the bony calvarium demonstrate no aggressive sclerotic or lytic bone lesi ons. Spine: Two views of the cervical, thoracic and lumbar spines are submitted. No aggressive sclerotic or lytic bone lesions. Degenerative changes diffusely involving the spine. PELVIS: Single view of the pelvis demonstrates no aggressive sclerotic or lytic bone lesions. There is asymmetric left hip degenerative joint space narrowing. UPPER EXTREMITIES: Two views of the upper extremities. No aggressive sclerotic or lytic bone lesions. Degenerative changes of the bilateral shoulders. LOWER EXTREMITIES: 2 views of the lower extremities. A few well-corticated sclerotic lesions of the distal right femur are seen, as well as a few tiny subcentimeter well-circumscribed lytic lesions wit hin the same region. No aggressive sclerotic or lytic bone lesions of the left lower extremity. Degen erative changes of the bilateral knees. IMPRESSION: A few subcentimeter sclerotic lesions and subcentimeter lytic lesions of the distal right femur are s een. Recommend dedicated radiographic examination of the right knee for further characterization.
== END | disposition home or self-care (01) ==
LOC: RADXRMAIN 14:57
PROVIDERS: ATTEND Internal Medicine Hematology & Oncology
DX: M89.8X5 Other specified disorders of bone, thigh (principal); I10 Essential (primary) hypertension
CPT/HCPCS: 77075

== ENCOUNTER → 2020-09-05 | Outpatient (CLI) | payer MEDICARE ==
[2020-09-05 21:29] LABS: African American GFR (CKD) 65.8 (60.0-200.0); Anion Gap 9.8 mmol/L (4.00-12.00); BUN/Creat Ratio 19.17 Ratio (12.00-20.00); Calcium 8.7 mg/dL (8.7-10.3); Carbon Dioxide 24.2 mmol/L (21.6-31.8); Non-African American GFR(CKD) 56.8 (60.0-200.0); Potassium 4.2 mmol/L (3.5-5.5)
== END | disposition home or self-care (01) ==
LOC: LABWHC1 13:24
PROVIDERS: ATTEND Internal Medicine Nephrology
DX: N18.32 Chronic kidney disease, stage 3b (principal)
CPT/HCPCS: 36415; 80048

== ENCOUNTER → 2020-09-11 | Outpatient (CLI) | payer MEDICARE ==
[2020-09-11 11:09] LABS: HCT 36.1 % (39.0-53.0); HGB 11.6 gm/dL (13.0-17.5); Hypochromasia Slight; MCH 29.9 pg (25.0-35.0); MCHC 32.1 g/dL (31.0-37.0); MCV 93.2 fL (80.0-100.0); Mean Platelet Volume 7.6; Platelet Count 239 k/uL (150-450); RBC 3.88 m/uL (4.30-5.90); WBC 5.5 k/uL (3.8-10.6)
[2020-09-11 11:22] LABS: Albumin 3.8 g/dL (3.5-5.0); Calcium 9.1 mg/dL (8.4-10.2); Potassium 4.1 mmol/L (3.5-5.1); Total Bilirubin 1.4 mg/dL (0.2-1.3); Total Protein 7.1 g/dL (6.3-8.2)
[2020-09-11 11:49] LABS: Appearance,Urine Turbid (Clear); Bacteria,Urine Many /hpf; Bilirubin,Urine Negative (Negative); Blood,Urine Small (Negative); Color,Urine Yellow; Glucose,Urine (UA) Negative (Negative); Hyaline Casts,Urine 34 /lpf (0-2); Ketones,Urine Negative (Negative); Leukocyte Esterase,Urine Large (Negative); Mucus,Urine Occasional /hpf; Nitrite,Urine Negative (Negative); Protein,Urine 1+ (Negative); RBC,Urine 18 /hpf (0-5); Specific Gravity,Urine 1.017 (1.001-1.035); Urobilinogen,Urine <2.0 mg/dL (<2.0); WBC,Urine >182 /hpf (0-5)
[2020-09-11 12:03] LABS: INR 1.2 (<1.2); Partial Thromboplastin Time 24.3 sec (22.0-30.0); Prothrombin Time 11.9 sec (9.0-12.0)
== END | disposition home or self-care (01) ==
LOC: LABPAT 10:22
PROVIDERS: ATTEND Orthopaedic Surgery
DX: Z01.818 Encounter for other preprocedural examination (principal); Z01.812 Encounter for preprocedural laboratory examination
CPT/HCPCS: 80053; 81001; 85027; 85610; 85730; 87070

== ENCOUNTER → 2020-09-12 | Outpatient (CLI) | payer MEDICARE ==
--- NOTE | 2020-09-12 09:00 | US ---
EXAMINATION TYPE: US kidneys/renal and bladder DATE OF EXAM: 09/12/2020 COMPARISON: NONE CLINICAL HISTORY: N18.32 CKD STAGE 3. h/o renal stones and cysts EXAM MEASUREMENTS: Right Kidney: 10.5 x 4.2 x 4.0 cm Left Kidney: 9.2 x 3.2 x 4.4 cm Right Kidney: 2.6cm cyst mid pole Left Kidney: No hydronephrosis or masses seen Bladder: wnl Bilateral Jets seen: only right There is no evidence for hydronephrosis at this point in time. No nephrolithiasis is seen. No solid masses are identified. The urinary bladder is anechoic. Bilateral ureteral jets are seen. IMPRESSION: Simple cyst right kidney. Otherwise unremarkable study.
== END | disposition home or self-care (01) ==
LOC: RADUSWWP 08:27
PROVIDERS: ATTEND Internal Medicine Nephrology
DX: N18.32 Chronic kidney disease, stage 3b (principal); N28.1 Cyst of kidney, acquired
CPT/HCPCS: 76770

== ENCOUNTER 2020-10-02 08:12 | Inpatient (IN) | payer MEDICARE ==
[2020-10-02] MEDS: SENNOSIDES-DOCUSATE SODIUM 1 EACH TAB PO SCH ×2 (07:50→19:22)
[~2020-10-02 08:12] MED LIST changes: -AMPICILLIN 1,000 MG in SODIUM CHLORIDE 0.9% 50 ML IVPB ONE; -DEXAMETHASONE SOD PHOSPHATE 10 MG/ML 1 ML VIAL IV ONE; -GENTAMICIN 120 MG in SODIUM CHLORIDE 0.9% 100 ML IVPB ONE; -LACTATED RINGERS 1,000 ML IV SCH; -LIDOCAINE 1% 20 ML VIAL (10MG/ML) FOR IV START INTRADERMA PRN; +MAGNESIUM HYDROXIDE 2,400 MG/10 ML CUP PO PRN; -MIDAZOLAM 2 MG/2 ML VIAL IV PRN; +NALOXONE 0.4 MG/ML 1 ML VIAL IV PRN; -ONDANSETRON 4 MG/2 ML VIAL IVP ONE; +ONDANSETRON 4 MG/2 ML VIAL IVP PRN
[2020-10-02] MEDS: SODIUM CHLORIDE 0.9% 1,000 ML IV SCH (10:41)
--- NOTE | 2020-10-02 12:13 | P.HPOR ---
History of Present Illness H&P Date: 10/02/20 This is an 80 year-old male who is scheduled for left total hip arthroplasty on Friday10/03/2020. Patient is admitted prior to surgery for IV antibiotics for management of chronic recurrent UTIs. Urology is on consult to manage this. Patient is seen and evaluated at bedside today. Patient denies any fever/chills, abdominal pain, headache, cough, shortness of breath, numbness, weakness or tingling. Patient's past medical history significant for coronary artery disease, heart failure, history of DVT, history of pulmonary embolism, hyperlipidemia, prostate disorder, recurrent UTIs, history of kidney stones, chronic low back pain, neuropathy of the right foot, history of discitis and chronic anemia. Review of Systems See HPI. Past Medical History Past Medical History: Coronary Artery Disease (CAD), Heart Failure, Deep Vein Thrombosis (DVT), Hyperlipidemia, Pneumonia, Prostate Disorder, Pulmonary Embolus (PE) Additional Past Medical History / Comment(s): recurrent UTIs,UTI with sepsis, bladder stones and kidney stones, chronic anemia, chronic low back pain, neuropathy R foot,discitis T 10 12 w/ iv abx History of Any Multi-Drug Resistant Organisms: ESBL Date of last positivie culture/infection: 09/13/20 MDRO Source:: ESBL URINE Past Surgical History: Appendectomy, Heart Catheterization, Heart Catheterization With Stent, Prostate Surgery Additional Past Surgical History / Comment(s): lithotripsy 12-08-19,Bladder stone removal 03/2018, TURP, colonoscopy, . Past Anesthesia/Blood Transfusion Reactions: No Reported Reaction Date of Last Stent Placement:: January 2019 Additional Psychological History / Comment(s): Pt resides with his spouse. He uses no assistive device but they do own a cane and a walker. 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 - Past Family History Father Family Medical History: No Reported History Additional Family Medical History / Comment(s): Father was healthy and lived to be 95 yrs old. Mother Family Medical History: No Reported History Additional Family Medical History / Comment(s): . Medications and Allergies Home Medications Medication Instructions Recorded Confirmed Type Aspirin 81 mg PO DAILY #30 chew 02/24/18 10/02/20 Rx Atorvastatin [Lipitor] 80 mg PO HS 05/06/19 10/02/20 History Potassium Chloride ER [K-Dur 10] 10 meq PO DAILY #30 tab 05/10/20 10/02/20 Rx Ferrous Sulfate [Iron (65 MG 325 mg PO DAILY #30 tab 05/15/20 10/02/20 Rx Elemental)] Furosemide [Lasix] 40 mg PO DAILY 09/15/20 10/02/20 History lisinopriL [Zestril] 5 mg PO DAILY 09/15/20 10/02/20 History Diclofenac Sodium Gel [Voltaren 2 gm TOPICAL TID PRN 10/02/20 10/02/20 History Gel] Famotidine [Pepcid] 20 mg PO BID 10/02/20 10/02/20 History Allergies Allergy/AdvReac Type Severity Reaction Status Date / Time No Known Allergies Allergy Verified 10/02/20 09:50 Physical Examination On exam patient is lying comfortably in bed in no acute distress. Patient is alert and oriented x3. Exam of the left lower extremity reveals skin is intact. No erythema. Calf is soft and nontender to palpation. Sensation intact. Patient has full range of motion of the foot and ankle. Neurovascular status and circulatory status are intact. Head is normocephalic and atraumatic. Exams of the right lower extremity and bilateral upper extremities are within normal limits. Assessment and Plan (1) Osteoarthritis of left hip Current Visit: Yes Status: Acute Code(s): M16.12 - UNILATERAL PRIMARY OSTEOARTHRITIS, LEFT HIP SNOMED Code(s): 255217068434704 (2) Recurrent UTI Current Visit: Yes Status: Acute Code(s): N39.0 - URINARY TRACT INFECTION, SITE NOT SPECIFIED SNOMED Code(s): 565936870 Plan: 1. NPO after midnight 2. Urology on consult for management of preop IV antibiotics and peralta catheter placement. 3. Appreciate input from medicine. 4. Hibiclens to be used for bathing tonight and tomorrow prior to surgery. 5. Patient is scheduled for left total hip arthroplasty w/ cell saver on 10/03/[address] Ming Byrne.
[2020-10-02] MEDS: PIPERACILLIN-TAZOBACTAM 3.375 GM in SODIUM CHLORIDE 0.9% 100 ML IVPB SCH ×2 (15:34→23:50)
--- NOTE | 2020-10-02 22:23 | P.CON ---
Consult Note - . Consult date: 10/02/20 Assessment/Plan:: Reason for consult - Medical management Mr. Cook is an 80-year-old male with a past medical history of coronary artery disease status post stenting, DVT PE, hyperlipidemia, recurrent UTI, nephrolithiasis, chronic low back pain, chronic anemia admitted to the hospital for left total hip arthroplasty. Patient states that he has been having pain in his left groin, so is scheduled for left hip arthroplasty. Patient denies having any chest pain, difficulty in breathing, orthopnea, PND or lower extremity swelling. Patient's physical activity is limited due to pain in his left hip. Patient had NSTEMI in May 2020, had a cardiac catheterization showing patent LAD with a stent. Patient also has history of chronic anemia and is on iron supplements. REVIEW OF SYSTEMS: PSYCH: N0 Anxiety or depression NEURO:No c/o weakness of the extremties, No facial droop, No speech abnormalities. VASCULAR: no edema HEMATOLOGIC: No history of easy bleeding and bruising . RESPIRATORY: No cough, No SOB, No chest discomfort. IMMUNE: h/o recurrent UTI INTEGUMENT: no rashes OPHTHALMOLOGIC: No blurry vision and no eye discharge : No dysuria or hematuria SPECIAL PROCEDURE TECH: No bleeding PV CARDIAC: No chest pain , shortness of breath , paroxysmal nocturnal dyspnea MUSCULOSKELETAL : as per HPI GI: No abdominal pain, Nausea or vomiting. No constipation or diarrhea. Past Medical History Past Medical History: Coronary Artery Disease (CAD), Heart Failure, Deep Vein Thrombosis (DVT), Hyperlipidemia, Pneumonia, Prostate Disorder, Pulmonary Embolus (PE) Additional Past Medical History / Comment(s): recurrent UTIs,UTI with sepsis, bladder stones and kidney stones, chronic anemia, chronic low back pain, neuropathy R foot,discitis T 11 12 w/ iv abx History of Any Multi-Drug Resistant Organisms: ESBL Date of last positivie culture/infection: 09/13/20 MDRO Source:: ESBL URINE Past Surgical History: Appendectomy, Heart Catheterization, Heart Catheterization With Stent, Prostate Surgery Additional Past Surgical History / Comment(s): lithotripsy 12-08-19,Bladder stone removal 03/2018, TURP, colonoscopy, . Past Anesthesia/Blood Transfusion Reactions: No Reported Reaction Date of Last Stent Placement:: January 2019 Additional Psychological History / Comment(s): Pt resides with his spouse. He uses no assistive device but they do own a cane and a walker. 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 - Past Family History Father Family Medical History: No Reported History Additional Family Medical History / Comment(s): Father was healthy and lived to be 95 yrs old. Mother Family Medical History: No Reported History Additional Family Medical History / Comment(s): . Medications and Allergies Home Medications Medication Instructions Recorded Confirmed Type Aspirin 81 mg PO DAILY #30 chew 02/24/18 10/02/20 Rx Atorvastatin [Lipitor] 80 mg PO HS 05/06/19 10/02/20 History Potassium Chloride ER [K-Dur 10] 10 meq PO DAILY #30 tab 05/10/20 10/02/20 Rx Ferrous Sulfate [Iron (65 MG 325 mg PO DAILY #30 tab 05/15/20 10/02/20 Rx Elemental)] Furosemide [Lasix] 40 mg PO DAILY 09/15/20 10/02/20 History lisinopriL [Zestril] 5 mg PO DAILY 09/15/20 10/02/20 History Diclofenac Sodium Gel [Voltaren 2 gm TOPICAL TID PRN 10/02/20 10/02/20 History Gel] Famotidine [Pepcid] 20 mg PO BID 10/02/20 10/02/20 History Allergies Allergy/AdvReac Type Severity Reaction Status Date / Time No Known Allergies Allergy Verified 10/02/20 09:50 Physical Exam Vitals: Vital Signs Temp Pulse Resp BP Pulse Ox 10/02/20 16:00 18 10/02/20 14:38 97.8 F 51 L 18 94/53 95 10/02/20 08:41 97.5 F L 61 18 93/64 95 Intake and Output 10/02/20 10/02/20 10/02/20 06:59 14:59 22:59 Intake Total 200 Balance 200 Intake: Oral 200 Other: Voiding Method Indwelling Catheter # Voids 2 Weight 81.9 kg GENERAL EXAM GEN. APPEARANCE: alert, in no apparent distress HEAD EXAM: atraumatic, normocephalic, normal inspection EYE EXAM: No pallor, No icterus ENT EXAM: normal exam, mucous membranes moist NECK EXAM: normal inspection. Absent: tenderness, meningismus, full ROM, lymphadenopathy RESPIRATORY EXAM: diminished at the lower lung bases. No wheeze or crackles CARDIOVASCULAR EXAM: regular rate, normal rhythm, normal heart sounds. GI/ABDOMINAL EXAM: soft, normal bowel sounds. no distension or tenderness. EXTREMITIES EXAM: no edema NEUROLOGICAL EXAM: alert, oriented X3, no focal deficit PSYCHIATRIC EXAM: normal affect, normal mood SKIN EXAM: no rash ASSESSMENT Coronary artery disease status post stenting History of DVT/PE NSTEMI in Recuurent UTIs Chronic anemia History of nephrolithiasis Hyperlipidemia Chronic low back pain Neuropathy of right foot History of discitis PLAN: Patient has multiple chronic medical issues, along with history of NSTEMI in May 2020, so will require cardiology to assess his cardiac risk. Will order CBC, CMP, urine analysis and EKG. Urology has been consulted for his history of recurrent urinary tract infections. Thank you for the consultation. Thrombosis Risk Factor Assmnt - Choose All That Apply Any of the Below Risk Factors Present?: Yes Each Risk Factor Represents 3 Points: Age 75 years or older, History of DVT/PE Thrombosis Risk Factor Assessment Total Risk Factor Score: 6 Thrombosis Risk Factor Assessment Level: High Risk
[2020-10-03] MEDS: SODIUM CHLORIDE 0.9% 1,000 ML IV SCH ×4 (03:13→17:49)
[2020-10-03] MEDS ORDERED: IV FLUID CONTINUATION 600 ML IV ONE (06:16)
[2020-10-03] MEDS ORDERED: ACETAMINOPHEN TAB 500 MG TAB PO ONE (06:19)
[2020-10-03] MEDS ORDERED: GABAPENTIN 300 MG CAP PO ONE (06:20)
[2020-10-03] MEDS ORDERED: MELOXICAM 7.5 MG TAB PO ONE (06:20)
[2020-10-03] MEDS ORDERED: ONDANSETRON 4 MG/2 ML VIAL IVP ONE (06:31)
[2020-10-03] MEDS ORDERED: SODIUM CHLORIDE 0.9% IRRIG 1,000 ML BTL IRRIGATION ONE (06:51)
[2020-10-03] MEDS ORDERED: PHENYLEPHRINE-0.9% NACL SYG 1 MG/10 ML SYRINGE ONE (06:51)
[2020-10-03] MEDS ORDERED: SODIUM CHLORIDE 0.9% 100 ML BAG ONE (06:51)
[2020-10-03] MEDS ORDERED: PROPOFOL 10 MG/ML 20 ML VIAL IV ONE (06:51)
[2020-10-03] MEDS ORDERED: ePHEDrine SULFATE/0.9% NACL/PF 50 MG/5 ML SYRINGE IV ONE (06:51)
[2020-10-03] MEDS ORDERED: fentaNYL (PF) 50 MCG/ML 2 ML AMP ONE (06:51)
[2020-10-03] MEDS ORDERED: MIDAZOLAM 2 MG/2 ML VIAL ONE (06:51)
[2020-10-03] MEDS ORDERED: HEPARIN SODIUM,PORCINE 10,000 UNIT/ML 1 ML VIAL ONE (06:51)
[2020-10-03] MEDS ORDERED: TRANEXAMIC ACID 1,000 MG/10 ML VIAL ONE (06:51)
[2020-10-03 06:54] LABS: Basophils % (A) 0 %; Eosinophils # (A) 0.2 k/uL (0-0.7); Eosinophils % (A) 2 %; HCT 41.3 % (39.0-53.0); HGB 12.8 gm/dL (13.0-17.5); Lymphocytes # (A) 0.7 k/uL (1.0-4.8); Lymphocytes % (A) 6 %; MCH 29.2 pg (25.0-35.0); MCHC 31.1 g/dL (31.0-37.0); MCV 93.9 fL (80.0-100.0); Mean Platelet Volume 7.5; Monocytes # (A) 0.6 k/uL (0-1.0); Monocytes % (A) 5 %; Neutrophils # (A) 10.7 k/uL (1.3-7.7); Neutrophils % (A) 87 %; Platelet Count 218 k/uL (150-450); RDW 14.5 % (11.5-15.5); WBC 12.3 k/uL (3.8-10.6)
[2020-10-03] MEDS ORDERED: ceFAZolin 3,000 MG in SODIUM CHLORIDE 0.9% IRRIGATIO 3,000 ML IRRIGATION ONE (06:57)
[2020-10-03] MEDS ORDERED: SODIUM CHLORIDE 0.9% 100 ML with ceFAZolin 2,000 MG IV ONE ×2 (06:57)
[2020-10-03] MEDS ORDERED: LACTATED RINGERS 1,000 ML IV ONE (07:15)
[2020-10-03] MEDS ORDERED: ROPIVACAINE 246.25 MG, EPINEPHrine 0.5 MG, KETOROLAC 30 MG, cloNIDine HCL/PF 80 MCG, WA... MISCELLANE ONE ×5 (07:45)
--- NOTE | 2020-10-03 08:13 | P.GSCN ---
History of Present Illness Consult date: 10/03/20 History of present illness: 80 male , known to me for bph with obtruction, incomplete emptying and recurrent utis. The patient has had a turp He has had a persistent uti due to incomplete bladder emptying. He had a cystoscopy recently that identified an open prostate and an inflammed bladder THe upper tracts are normal The issue is due to incomplete bladder emptying and incomplete treatment I explained to the patient and dr Byrne et sabrina that the treatment of choice would be longer treatment with culture specific antibiotics and a catheter for a while yet to be determined. He is in the hospital for hip surgery due too an arthritic and very painful hip Review of Systems All systems: negative - Constitutional Reports as per HPI, Denies fever, Denies weight loss - EENT Eyes: denies blurred vision Ears, nose, mouth and throat: Denies dysphagia - Cardiovascular Denies chest pain, Denies shortness of breath - Respiratory Denies cough, Denies 7 - Gastrointestinal Reports as per HPI - Genitourinary Reports as per HPI, Denies dysuria, Denies hematuria - Musculoskeletal Reports as per HPI - Integumentary Denies rash, Denies unusual bruising - Neurological Denies headaches, Denies syncope - Hematologic/Lymphatic Denies easy bleeding, Denies easy bruising Past Medical History Past Medical History: Coronary Artery Disease (CAD), Heart Failure, Deep Vein Thrombosis (DVT), Hyperlipidemia, Pneumonia, Prostate Disorder, Pulmonary Embolus (PE) Additional Past Medical History / Comment(s): recurrent UTIs,UTI with sepsis, bladder stones and kidney stones, chronic anemia, chronic low back pain, neuropathy R foot,discitis T 11 12 w/ iv abx History of Any Multi-Drug Resistant Organisms: ESBL Year Discovered:: 09/13/20 MDRO Source:: ESBL URINE Past Surgical History: Appendectomy, Heart Catheterization, Heart Catheterization With Stent, Prostate Surgery Additional Past Surgical History / Comment(s): lithotripsy 12-08-19,Bladder stone removal 03/2018, TURP, colonoscopy, . Past Anesthesia/Blood Transfusion Reactions: No Reported Reaction Date of Last Stent Placement:: January 2019 Additional Psychological History / Comment(s): Pt resides with his spouse. He uses no assistive device but they do own a cane and a walker. 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 - Past Family History Father Family Medical History: No Reported History Additional Family Medical History / Comment(s): Father was healthy and lived to be 95 yrs old. Mother Family Medical History: No Reported History Additional Family Medical History / Comment(s): . Medications and Allergies Home Medications Medication Instructions Recorded Confirmed Type Aspirin 81 mg PO DAILY #30 chew 02/24/18 10/02/20 Rx Atorvastatin [Lipitor] 80 mg PO HS 05/06/19 10/02/20 History Potassium Chloride ER [K-Dur 10] 10 meq PO DAILY #30 tab 05/10/20 10/02/20 Rx Ferrous Sulfate [Iron (65 MG 325 mg PO DAILY #30 tab 05/15/20 10/02/20 Rx Elemental)] Furosemide [Lasix] 40 mg PO DAILY 09/15/20 10/02/20 History lisinopriL [Zestril] 5 mg PO DAILY 09/15/20 10/02/20 History Diclofenac Sodium Gel [Voltaren 2 gm TOPICAL TID PRN 10/02/20 10/02/20 History Gel] Famotidine [Pepcid] 20 mg PO BID 10/02/20 10/02/20 History Allergies Allergy/AdvReac Type Severity Reaction Status Date / Time No Known Allergies Allergy Verified 10/02/20 09:50 Surgical - Exam Vital Signs Temp Pulse Resp BP Pulse Ox 97.5 F L 61 18 93/64 95 10/02/20 08:41 10/02/20 08:41 10/02/20 08:41 10/02/20 08:41 10/02/20 08:41 - General well developed, well nourished, no distress - Eyes PERRL - ENT no hearing loss - Neck no masses - Respiratory normal expansion, normal respiratory effort - Cardiovascular Rhythm: regular - Abdomen Abdomen: soft, non tender - Genitourinary normal penis with no external lesions, testicles present - Integumentary no rash, no growths - Neurologic normal coordination, normal sensation - Musculoskeletal normal posture - Psychiatric oriented to time, oriented to person, oriented to place, speech is normal, memory intact Results - Labs 10/03/20 06:07 Abnormal Lab Results - Last 24 Hours (Table) 10/03/20 Range/Units 06:07 WBC 12.3 H (3.8-10.6) k/uL Hgb 12.8 L (13.0-17.5) gm/dL Neutrophils # 10.7 H (1.3-7.7) k/uL Lymphocytes # 0.7 L (1.0-4.8) k/uL Assessment and Plan Assessment: Impression: 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
--- NOTE | 2020-10-03 08:26 | P.OP ---
Date of Procedure: 10/03/20 Preoperative Diagnosis: Severe osteoarthritis left hip Postoperative Diagnosis: Severe osteoarthritis left hip Procedure(s) Performed: Left total hip arthroplasty with a direct anterior approach Implants: Diaz and nephew Polarstem size 4 standard Diaz [employer] Nephew R3, 3 hole acetabular shell, 52 mm Diaz [employer] Nephew reflection 6.5 mm cancellus screw, 20 mm 2 Diaz [employer] Nephew R3, XLPE 20 acetabular liner Diaz & Nephew Oxinium femoral head 36 m, +0 All components were press-fit. The articulation is Oxinium on polyethylene. Anesthesia: spinal Surgeon: Ming Byrne Custom Bookbinder #1: Bekah Lemon Estimated Blood Loss (ml): 100 Pathology: other (Femoral head) Condition: stable Disposition: PACU Indications for Procedure: After failure of conservative treatment we discussed the surgical and nonsurgical treatment options at length. Patient wishes to proceed with a total hip arthroplasty with a direct anterior approach. Complications specific to this procedure were discussed at length, including but not limited to infection, leg length discrepancy, dislocation, and nerve injury. Covid-19 was also discussed at length with the patient, and they are aware of the current policies and procedures. The patient was given the option of delaying surgery, but they elect to proceed knowing these risks. Patient is aware of all these complications and informed consent was obtained Operative Findings: The operative findings are consistent with severe osteoarthritis of the left hip Description of Procedure: Patient was seen and evaluated in the preoperative area, consent was reviewed, and the surgical site was marked with a skin marker. Patient was then brought to the operating room and given prophylactic antibiotics intravenously. 1 g of Tranexamic acid was also given. A spinal anesthetic was administered by the anesthesia department. The patient was then placed on the Flushing table with the bony prominences well-padded. The hip area was then prepped and draped in usual sterile fashion. A universal timeout was then performed, which confirmed the patient's name, surgical site, ALLERGIES, and procedure being performed. Next the incision site was located at 1 cm distal and 1 cm lateral to the anterior superior iliac spine. The skin and subcutaneous tissues were sharply incised. Incision was carefully dissected down to the fascia overlying the tensor fascia homar muscle. This fascia was then incised in line with the incision. Next, using blunt finger dissection, the tensor fascia homar muscle was dissected off its investing fascia. The muscle was then carefully retracted laterally with a cobra retractor over the lateral neck of the femur. Next, the circumflex vessels were identified and cauterized using the AquaMantis device. The anterior hip capsule was then exposed. The capsule was then opened and an inverted T fashion. Cobra retractors were then placed intracapsularly. The proximal femur was then visualized. The femoral neck was then osteotomized appropriate level above the lesser trochanter. Small amount of traction was placed with the Flushing table. A small wedge of bone was then removed from the remaining femoral head. Next, using a corkscrew femoral head was easily removed from the acetabulum. On gross visual inspection, the femoral head had complete loss of articular cartilage in multiple periarticular osteophytes. Attention was then turned to the acetabulum. the acetabulum was exposed and any remaining labrum was excised. Sequential reaming of the acetabulum was performed using fluoroscopic guidance. When the appropriate size was reached, a trial was then placed. The position and fit of the trial was checked with fluoroscopy. The trial was then removed. Then, using fluoroscopic guidance, the final implant was impacted at 20 of anteversion and 40 of abduction, and fully seated in the acetabulum. 2 screws were then placed in the acetabulum. Again fluoroscopy was used to check pos ition of the screws. Next, the liner was then impacted, with a 20 elevated liner located in the anterior superior quadrant. Component locking was confirmed. Attention was then directed to the femur. With the aid of the Flushing table, the femur was externally rotated to approximately 130, extended, and abducted under the opposite leg. A side hook was then placed under the proximal femur, and the side hook elevator was used to elevate the proximal femur. Retractors were then placed. A capsular release was performed, as well as a release of the conjoined tendon, which afforded excellent visualization of the proximal femur. Next, a box osteotome was used to lateralize the proximal femur. A dipper clock and watch hands was then used to locate the femoral canal. Sequential broaching was then performed with appropriate size which afforded excellent fixation in the proximal femur. A trial was then placed with appropriate head and neck, and the hip was gently reduced with the aid of the Flushing table. Fluoroscopy was then used to check position of the components, as well as to ensure equal leg lengths. The hip was then gently dislocated and the trials were then removed. Final implants were then impacted and the hip was again reduced. Final fluoroscopic x-rays confirmed that the components were in anatomic position, as well as equal leg lengths. The hip was also taken through range of motion, and found to be stable. The hip was then copiously irrigated with antibiotic solution with pulsatile lavage. The hip was then irrigated with Irrisept solution. The soft tissues were then injected with a ropivacaine solution, which consisted of 246.25 mg of ropivacaine, 0.5 mg of epinephrine, 30 mg of Toradol, 80 g of clonidine, and 48.45 mL of sterile water, for a total of 100 mL of fluid injected. A second dose of 1 g of Tranexamic acid was also given. the fascia was then closed with 2-0 strata fix suture. The subcutaneous tissue was closed with 3-0 Vicryl. The subcuticular tissue was closed with 3-0 strata fix suture. The skin was then closed with Dermabond glue and a sterile silver dressing. The patient was then transferred to the recovery room in stable condition. The assistant hvac mechanic ODETTE Blackburn was required due to the complexity of surgery, and the need for skilled surgical endoscopist for positioning, draping, exposure, retraction, and closure of the wound.
--- NOTE | 2020-10-03 08:39 | FL ---
Fluoroscopy and limited left hip HISTORY: Hip replacement 40 seconds fluoroscopy time supplied to the referring clinician. 2 intraoperative C-arm images docum ent the procedure. See dictated report from orthopedic surgery.
[2020-10-03] MEDS ORDERED: HYDROmorphone 0.5 MG/0.5 ML SYRINGE IVP PRN ×3 (08:56)
[2020-10-03] MEDS ORDERED: HYDROcodone/APAP 5-325MG 1 EACH TAB PO PRN (08:56)
[2020-10-03] MEDS ORDERED: NALOXONE 0.4 MG/ML 1 ML VIAL IV PRN (08:56)
[2020-10-03 09:04] LABS: INR 1.08 (0.90-1.11); Prothrombin Time 11.5 sec (9.9-11.9)
[2020-10-03 09:09] LABS: African American GFR (CKD) 35.5 (60.0-200.0); Albumin 4.1 g/dL (3.80-4.90); Albumin/Globulin Ratio 1.32 (1.60-3.17); Anion Gap 8.6 mmol/L (4.00-12.00); Calcium 9.4 mg/dL (8.7-10.3); Carbon Dioxide 25.4 mmol/L (21.6-31.8); Globulin 3.1 g/dL (1.6-3.3); Non-African American GFR(CKD) 30.6 (60.0-200.0); Total Bilirubin 1.2 mg/dL (0.3-1.2); Total Protein 7.2 g/dL (6.2-8.2)
[2020-10-03] MEDS: PIPERACILLIN-TAZOBACTAM 3.375 GM in SODIUM CHLORIDE 0.9% 100 ML IVPB SCH ×2 (09:30→17:45)
--- NOTE | 2020-10-03 11:01 | XR ---
Limited left hip HISTORY: Postop Single frontal view of the left hip Patient is status post left hip arthroplasty. There is anatomic alignment. Lucency is present in the soft tissues. IMPRESSION: Orthopedic follow-up.
--- NOTE | 2020-10-03 11:25 | P.HPIM ---
History of Present Illness This is a pleasant 80 years old male with past medical history of coronary artery disease, status post stent placement, chronic heart failure, deep venous thrombosis, hyperlipidemia, pulmonary embolism on anticoagulation. Patient was admitted for severe left hip osteoarthritis status post left total hip arthroplasty. Today is postoperative day #0. Currently patient lying in bed comfortable, daughter at bedside, he denies chest pain or dyspnea, no abdominal pain, no nausea vomiting Hair catheter is in place Patient states that he has history of right leg DVT and PE in 2007 and that currently he is not on anticoagulation Vitas looks stable, blood pressure is 93/52. Labs showing mild leukocytosis of 12.3 K, creatinine is elevated at 2.0, baseline is 1.2-1.6. Rest of BMP and liver enzymes were unremarkable. Patient also has been evaluated by neurologist Dr. Zuñiga for his UTI, as per Dr. Zuñiga patient has chronic cystitis and need culture specific antibiotics and continue with indwelling Hair catheter for incomplete bladder emptying. Currently he is on Zosyn. Also patient is on normal saline 60-65 mL/h Patient also was started on Eliquis 2.5 mg twice daily Review of Systems CONSTITUTIONAL: No fever, no malaise, no fatigue. HEENT: No recent visual problems or hearing problems. Denied any sore throat. CARDIOVASCULAR: No orthopnea, PND, no palpitations, no syncope. PULMONARY: No shortness of breath, no cough, no hemoptysis. GASTROINTESTINAL: No diarrhea, no nausea, no vomiting, no abdominal pain. Normoactive bowel sounds. NEUROLOGICAL: No headaches, no weakness, no numbness. HEMATOLOGICAL: Denies any bleeding or petechiae. GENITOURINARY: Denies any burning micturition, frequency, or urgency. MUSCULOSKELETAL/RHEUMATOLOGICAL: Denies any joint pain, swelling, or any muscle pain. ENDOCRINE: Denies any polyuria or polydipsia. Past Medical History Past Medical History: Coronary Artery Disease (CAD), Heart Failure, Deep Vein Thrombosis (DVT), Hyperlipidemia, Pneumonia, Prostate Disorder, Pulmonary Embolus (PE) Additional Past Medical History / Comment(s): recurrent UTIs,UTI with sepsis, bladder stones and kidney stones, chronic anemia, chronic low back pain, neuropathy R foot,discitis T 11 12 w/ iv abx History of Any Multi-Drug Resistant Organisms: ESBL Date of last positivie culture/infection: 09/13/20 MDRO Source:: ESBL URINE Past Surgical History: Appendectomy, Heart Catheterization, Heart Catheterization With Stent, Prostate Surgery Additional Past Surgical History / Comment(s): lithotripsy 12-08-19,Bladder stone removal 03/2018, TURP, colonoscopy, . Past Anesthesia/Blood Transfusion Reactions: No Reported Reaction Date of Last Stent Placement:: January 2019 Additional Psychological History / Comment(s): Pt resides with his spouse. He uses no assistive device but they do own a cane and a walker. 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 - Past Family History Father Family Medical History: No Reported History Additional Family Medical History / Comment(s): Father was healthy and lived to be 95 yrs old. Mother Family Medical History: No Reported History Additional Family Medical History / Comment(s): . Medications and Allergies Home Medications Medication Instructions Recorded Confirmed Type Aspirin 81 mg PO DAILY #30 chew 02/24/18 10/02/20 Rx Atorvastatin [Lipitor] 80 mg PO HS 05/06/19 10/02/20 History Potassium Chloride ER [K-Dur 10] 10 meq PO DAILY #30 tab 05/10/20 10/02/20 Rx Ferrous Sulfate [Iron (65 MG 325 mg PO DAILY #30 tab 05/15/20 10/02/20 Rx Elemental)] Furosemide [Lasix] 40 mg PO DAILY 09/15/20 10/02/20 History lisinopriL [Zestril] 5 mg PO DAILY 09/15/20 10/02/20 History Diclofenac Sodium Gel [Voltaren 2 gm TOPICAL TID PRN 10/02/20 10/02/20 History Gel] Famotidine [Pepcid] 20 mg PO BID 10/02/20 10/02/20 History Allergies Allergy/AdvReac Type Severity Reaction Status Date / Time No Known Allergies Allergy Verified 10/02/20 09:50 Physical Exam Vitals: Vital Signs Temp Pulse Pulse Resp BP Pulse Ox 10/03/20 09:30 97.4 F L 74 20 93/52 97 10/03/20 09:12 73 16 96/62 97 10/03/20 08:59 65 16 95/52 96 10/03/20 08:44 76 16 110/51 97 10/03/20 08:29 75 16 125/58 96 10/03/20 06:26 97.3 F L 56 L 106/64 96 10/03/20 00:57 97.8 F 51 L 14 92/58 94 L 10/02/20 19:09 98.1 F 52 L 15 101/57 96 10/02/20 16:00 18 10/02/20 14:38 97.8 F 51 L 18 94/53 95 Intake and Output 10/02/20 10/03/20 10/03/20 22:59 06:59 14:59 Intake Total 602 1000 Output Total 600 450 200 Balance -600 152 800 Intake: IV 602 1000 Output: Urine 600 450 100 Estimated Blood Loss 100 Other: Voiding Method Indwelling Catheter Indwelling Catheter Indwelling Catheter # Bowel Movements 1 GENERAL: The patient is alert and oriented x3, not in any acute distress. Well developed, well nourished. HEENT: Pupils are round and equally reacting to light. EOMI. No scleral icterus. No conjunctival pallor. Normocephalic, atraumatic. No pharyngeal erythema. No thyromegaly. CARDIOVASCULAR: S1 and S2 present. No murmurs, rubs, or gallops. PULMONARY: Chest is clear to auscultation, no wheezing or crackles. -ABDOMEN: Soft, nontender, nondistended, normoactive bowel sounds. No palpable organomegaly. Hair catheter MUSCULOSKELETAL: No joint swelling or deformity. -EXTREMITIES: No cyanosis, clubbing, or pedal edema. Left hip surgery wound looks clean 1) dressing is in place NEUROLOGICAL: Gross neurological examination did not reveal any focal deficits. SKIN: No rashes. No petechiae Results CBC & Chem 7: 10/03/20 06:07 10/03/20 06:07 Labs: Abnormal Lab Results - Last 24 Hours (Table) 10/03/20 10/03/20 Range/Units 06:07 06:07 WBC 12.3 H (3.8-10.6) k/uL Hgb 12.8 L (13.0-17.5) gm/dL Neutrophils # 10.7 H (1.3-7.7) k/uL Lymphocytes # 0.7 L (1.0-4.8) k/uL BUN 56.0 H (9.0-27.0) mg/dL Creatinine 2.0 H (0.6-1.5) mg/dL Est GFR (CKD-EPI)AfAm 35.5 L (60.0-200.0) Est GFR (CKD-EPI)NonAf 30.6 L (60.0-200.0) BUN/Creatinine Ratio 28.00 H (12.00-20.00) Ratio Albumin/Globulin Ratio 1.32 L (1.60-3.17) g/dL Thrombosis Risk Factor Assmnt - Choose All That Apply Each Risk Factor Represents 3 Points: Age 75 years or older, History of DVT/PE Each Risk Factor Represents 5 Points: Elective major lower extremity arthoplasty Thrombosis Risk Factor Assessment Total Risk Factor Score: 11 Thrombosis Risk Factor Assessment Level: High Risk Assessment and Plan Assessment: severe left hip osteoarthritis status post left total hip arthroplasty Acute kidney injury Chronic cystitis due to incomplete bladder emptying Hyperlipidemia Chronic heart failure History of coronary artery disease status post stent Chronic kidney disease, stage III history of DVT, PE, not on anticoagulation Plan: This is a pleasant 80 years old male who presents with left hip arthroplasty. Continue with postop care. Continue with gentle hydration Continue with Hair catheter as per urology service recommendation and follow-up as an outpatient Pain management and DVT prophylaxis as per surgery primary team Labs and medication were reviewed.. Continue same treatment. Continue with symptomatic treatment. Resume home medication. Monitor lytes and vitals. DVT and GI prophylaxis. Further recommendations depends on the clinical course of the patient DVT prophylaxis Eliquis GI Prophylaxis: Pepcid PT/OT: Pending Thank you for consulting us, we will follow up
[2020-10-03] MEDS: HYDROcodone/APAP 5-325MG 1 EACH TAB PO PRN (14:43)
[2020-10-03] MEDS: SENNOSIDES-DOCUSATE SODIUM 1 EACH TAB PO SCH (20:25)
[2020-10-03] MEDS: ATORVASTATIN 80 MG TAB PO SCH (20:25)
[2020-10-03] MEDS ORDERED: SODIUM CHLORIDE 0.9% 500 ML 250 ML IV ONE (20:58)
[2020-10-03] MEDS ORDERED: FAMOTIDINE 20 MG/2 ML VIAL IV SCH (21:00)
[2020-10-04] MEDS: PIPERACILLIN-TAZOBACTAM 3.375 GM in SODIUM CHLORIDE 0.9% 100 ML IVPB SCH ×3 (00:12→16:33)
[2020-10-04 06:35] LABS: Basophils % (A) 0 %; Eosinophils # (A) 0.3 k/uL (0-0.7); Eosinophils % (A) 3 %; HCT 33.3 % (39.0-53.0); HGB 10.5 gm/dL (13.0-17.5); Lymphocytes # (A) 0.7 k/uL (1.0-4.8); Lymphocytes % (A) 7 %; MCH 29.8 pg (25.0-35.0); MCHC 31.4 g/dL (31.0-37.0); MCV 94.9 fL (80.0-100.0); Mean Platelet Volume 7.5; Monocytes # (A) 0.6 k/uL (0-1.0); Monocytes % (A) 6 %; Neutrophils # (A) 8.2 k/uL (1.3-7.7); Neutrophils % (A) 82 %; Platelet Count 159 k/uL (150-450); RDW 14.5 % (11.5-15.5)
[2020-10-04] MEDS: FAMOTIDINE 20 MG TAB PO SCH (07:56)
[2020-10-04] MEDS: APIXABAN 2.5 MG TABLET PO SCH ×2 (07:56→20:54)
--- NOTE | 2020-10-04 08:02 | P.PN ---
Subjective Progress Note Date: 10/04/20 The patient is status post left hip arthroplasty. The Hair catheter is in. He is on culture specific antibiotics. The urine is clearing. I reviewed his x- rays and do not see any stones in the upper tract. We will continue with the Hair catheter for now. Objective - Vital Signs Vital signs: Vital Signs Temp 98.3 F 10/04/20 07:36 Pulse 62 10/04/20 07:36 Resp 18 10/04/20 07:36 BP 92/51 10/04/20 07:36 Pulse Ox 97 10/04/20 07:36 Intake & Output 10/03/20 10/04/20 10/04/20 18:59 06:59 18:59 Intake Total 1530 Output Total 600 600 Balance 930 -600 Intake: IV 1000 Intake, IV Titration 530 Amount Sodium Chloride 0.9% 1, 480 000 ml @ 60 mls/hr IV . [id number] [facility] Rx#:[id number] ceFAZolin 2 gm In Sodium 50 Chloride 0.9% 50 ml @ 100 mls/hr IVPB Q8HR [facility] Rx# :[id number] Output: Urine 500 600 Estimated Blood Loss 100 Other: Voiding Method Indwelling Catheter Indwelling Catheter - Labs CBC & Chem 7: 10/04/20 06:10 10/03/20 06:07 Labs: Abnormal Lab Results - Last 24 Hours (Table) 10/03/20 10/04/20 Range/Units 06:07 06:10 RBC 3.50 L (4.30-5.90) m/uL Hgb 10.5 L (13.0-17.5) gm/dL Hct 33.3 L (39.0-53.0) % Neutrophils # 8.2 H (1.3-7.7) k/uL Lymphocytes # 0.7 L (1.0-4.8) k/uL BUN 56.0 H (9.0-27.0) mg/dL Creatinine 2.0 H (0.6-1.5) mg/dL Est GFR (CKD-EPI)AfAm 35.5 L (60.0-200.0) Est GFR (CKD-EPI)NonAf 30.6 L (60.0-200.0) BUN/Creatinine Ratio 28.00 H (12.00-20.00) Ratio Albumin/Globulin Ratio 1.32 L (1.60-3.17) g/dL
[2020-10-04] MEDS: HYDROcodone/APAP 5-325MG 1 EACH TAB PO PRN (09:02)
--- NOTE | 2020-10-04 09:09 | P.PN ---
Subjective Progress Note Date: 10/04/20 This is an 80-year-old male who is status post left total hip arthroplasty. This is postoperative day #1 and patient is seen and evaluated at bedside with Dr. Ming Byrne. Patient reports some soreness in the left hip today. Patient states that he tried walking today, his blood pressure dropped. Otherwise patient denies any new complaints today. Patient denies any fever/chills, numbness, weakness, tingling, abdominal pain, shortness of breath or chest pain. Objective - Vital Signs Vital signs: Vital Signs Temp 98.3 F 10/04/20 07:36 Pulse 62 10/04/20 07:36 Resp 18 10/04/20 07:36 BP 92/51 10/04/20 07:36 Pulse Ox 97 10/04/20 07:36 Intake & Output 10/03/20 10/04/20 10/04/20 18:59 06:59 18:59 Intake Total 1530 Output Total 600 600 Balance 930 -600 Intake: IV 1000 Intake, IV Titration 530 Amount Sodium Chloride 0.9% 1, 480 000 ml @ 60 mls/hr IV . [id number] [facility] Rx#:[id number] ceFAZolin 2 gm In Sodium 50 Chloride 0.9% 50 ml @ 100 mls/hr IVPB Q8HR [facility] Rx# :[id number] Output: Urine 500 600 Estimated Blood Loss 100 Other: Voiding Method Indwelling Catheter Indwelling Catheter Indwelling Catheter - Exam Vital signs are stable. Patient is in no acute distress and is alert and oriented 3. Calf is soft and nontender to palpation. Dressing is clean, dry, and intact. Patient has full foot and ankle motion without pain or difficulty. Neurovascular status and circulatory status are intact. - Labs CBC & Chem 7: 10/04/20 06:10 10/03/20 06:07 Labs: Abnormal Lab Results - Last 24 Hours (Table) 10/03/20 10/04/20 Range/Units 06:07 06:10 RBC 3.50 L (4.30-5.90) m/uL Hgb 10.5 L (13.0-17.5) gm/dL Hct 33.3 L (39.0-53.0) % Neutrophils # 8.2 H (1.3-7.7) k/uL Lymphocytes # 0.7 L (1.0-4.8) k/uL BUN 56.0 H (9.0-27.0) mg/dL Creatinine 2.0 H (0.6-1.5) mg/dL Est GFR (CKD-EPI)AfAm 35.5 L (60.0-200.0) Est GFR (CKD-EPI)NonAf 30.6 L (60.0-200.0) BUN/Creatinine Ratio 28.00 H (12.00-20.00) Ratio Albumin/Globulin Ratio 1.32 L (1.60-3.17) g/dL Assessment and Plan (1) Osteoarthritis of left hip Current Visit: Yes Status: Acute Code(s): M16.12 - UNILATERAL PRIMARY OSTEOARTHRITIS, LEFT HIP SNOMED Code(s): 298291093861522 (2) Recurrent UTI Current Visit: Yes Status: Acute Code(s): N39.0 - URINARY TRACT INFECTION, SITE NOT SPECIFIED SNOMED Code(s): 448845273 Plan: Continue routine postop care and pain control. Continue anticoagulation with Eliquis due to history of DVT. Weightbearing as tolerated with a walker. Leave dressing in place for 10 days. Appreciate input from medicine and urology. Patient has Hair catheter in place and is receiving IV antibiotics per urology. Anticipate discharge home with homecare tomorrow.
[2020-10-04 10:07] LABS: African American GFR (CKD) 35.5 (60.0-200.0); Anion Gap 6.9 mmol/L (4.00-12.00); Calcium 8.5 mg/dL (8.7-10.3); Carbon Dioxide 24.1 mmol/L (21.6-31.8); Non-African American GFR(CKD) 30.6 (60.0-200.0); Potassium 5.4 mmol/L (3.5-5.5)
--- NOTE | 2020-10-04 13:59 | CDI ---
Documentation Clarification Form Date: 10/04/2020 01:29:27 PM From: Brenda Tavera RN, CCDS Admit Date: 10/02/2020 08:12:00 AM Patient Name: Rafiq Cook Visit Number: [id number] Discharge Date: ATTENTION: The Clinical Documentation Specialists (CDI) and [facility] Coding Staff appreciate your assistance in clarifying documentation. Please respond to the clarification below the line at the bottom and electronically sign. The CDI & [facility] Coding staff will review the response and follow-up if needed. Please note: Queries are made part of the Legal Health Record. If you have any questions, please contact the author of this message via ITS. Dr. Hogan E Sheet Chronic heart failure is documented in the progress note on 09/02. Please provide further specific for the type of chronic heart failure if known. History/Risk Factors: Coronary Artery disease (CAD), Heart failure, DVT, Prostate disorder chronic anemia, NSTEMI in May 2020 Clinical Indicators: 80-year-old male present on 10/02 for treatment of UTI. Past medical history and progress note has chronic heart failure. 10/02 VS/Pulse OX: 93/64 61 18 97.5 95 % RA Echocardiogram Results: 02/16/2019 Moderate concentric left ventricular hypertrophy. Overall left ventricular systolic function is normal with, an EF 55-60 % Treatment: Lipitor 80 mg po HS Lasix 40 mg po daily (home med) In your professional opinion, can you please clarify the acuity and type of CHF if known? Chronic Diastolic Heart Failure Unable to Determine Other, please specify (Last Revision: March 2018) Chronic Diastolic Heart Failure MTDD
[2020-10-04] MEDS: SODIUM CHLORIDE 0.9% 1,000 ML IV SCH (16:33)
[2020-10-04 20:13] LABS: Appearance,Urine Cloudy (Clear); Bacteria,Urine Rare /hpf; Bilirubin,Urine Negative (Negative); Blood,Urine Moderate (Negative); Color,Urine Yellow; Glucose,Urine (UA) 3+ (Negative); Hyaline Casts,Urine 1 /lpf (0-2); Ketones,Urine Negative (Negative); Leukocyte Esterase,Urine Large (Negative); Mucus,Urine Rare /hpf; Nitrite,Urine Negative (Negative); PH, Urine 5.5 (5.0-8.0); Protein,Urine 1+ (Negative); RBC,Urine 47 /hpf (0-5); Specific Gravity,Urine 1.019 (1.001-1.035); Squamous Epithelial Cell,Urine <1 /hpf (0-4); Urobilinogen,Urine <2.0 mg/dL (<2.0); WBC,Urine 79 /hpf (0-5)
--- NOTE | 2020-10-04 20:33 | P.PN ---
Subjective This is a pleasant 80 years old male with past medical history of coronary artery disease, status post stent placement, chronic heart failure, deep venous thrombosis, hyperlipidemia, pulmonary embolism on anticoagulation. Patient was admitted for severe left hip osteoarthritis status post left total hip arthroplasty. Today is postoperative day #0. Currently patient lying in bed comfortable, daughter at bedside, he denies chest pain or dyspnea, no abdominal pain, no nausea vomiting Hair catheter is in place Patient states that he has history of right leg DVT and PE in 2007 and that currently he is not on anticoagulation Vitas looks stable, blood pressure is 93/52. Labs showing mild leukocytosis of 12.3 K, creatinine is elevated at 2.0, baseline is 1.2-1.6. Rest of BMP and liver enzymes were unremarkable. Patient also has been evaluated by neurologist Dr. Zuñiga for his UTI, as per Dr. Zuñiga patient has chronic cystitis and need culture specific antibiotics and continue with indwelling Hair catheter for incomplete bladder emptying. Currently he is on Zosyn. Also patient is on normal saline 60-65 mL/h Patient also was started on Eliquis 2.5 mg twice daily 10/04/2020 Consulting sitting in bed, not in distress with no complaint, he denies dizziness or chest pain or dyspnea. He's with expected pain at the left hip surgical site, patient states that he woke today with physical therapist and he was doing well. He is a still hypotensive with blood pressure low-normal with slight improvement today, his IV fluid is normal saline at 75 mL/h TSH normal at 1.0, cortisol is normal at 18.2. Creatinine is still elevated at 2.0, urine analysis was suspicious for infection. proCalcitonin elevated at 0.2, patient remains on Zosyn. WBC back to normal today at 10.0. Also he is on normal saline at 75 ml/h and Eliquis 2.5 Consult nephrology for acute kidney injury Review of Systems CONSTITUTIONAL: No fever, no malaise, no fatigue. HEENT: No recent visual problems or hearing problems. Denied any sore throat. CARDIOVASCULAR: No orthopnea, PND, no palpitations, no syncope. PULMONARY: No shortness of breath, no cough, no hemoptysis. GASTROINTESTINAL: No diarrhea, no nausea, no vomiting, no abdominal pain. Normoactive bowel sounds. NEUROLOGICAL: No headaches, no weakness, no numbness. Active Medications Generic Name Dose Route Start Last Admin Trade Name Freq PRN Reason Stop Dose Admin Hydrocodone Bitart/Acetaminophen 1 each 10/03/20 08:56 10/04/20 09:02 Hydrocodone/Apap 5-325mg 1 Each Tab PO 1 each Q6HR PRN Administration Pain Scale 1 to 5 Hydrocodone Bitart/Acetaminophen 2 each 10/03/20 08:56 10/04/20 19:17 Hydrocodone/Apap 5-325mg 1 Each Tab PO 2 each Q6HR PRN Administration Pain Scale 6 to 10 Apixaban 2.5 mg 10/04/20 09:00 10/04/20 07:56 Apixaban 2.5 Mg Tablet PO 2.5 mg BID [facility] Administration Atorvastatin Calcium 80 mg 10/03/20 21:00 10/03/20 20:25 Atorvastatin 80 Mg Tab PO 80 mg HS [facility] Administration Famotidine 20 mg 10/04/20 09:00 10/04/20 07:56 Famotidine 20 Mg Tab PO 20 mg DAILY [facility] Administration Hydromorphone HCl 0.125 mg 10/03/20 08:56 Hydromorphone 0.5 Mg/0.5 Ml Syringe IVP Q3HR PRN Pain Scale 1 to 3 Hydromorphone HCl 0.25 mg 10/03/20 08:56 Hydromorphone 0.5 Mg/0.5 Ml Syringe IVP Q3HR PRN Pain Scale 4 to 6 Hydromorphone HCl 0.5 mg 10/03/20 08:56 10/03/20 17:44 Hydromorphone 0.5 Mg/0.5 Ml Syringe IVP 0.5 mg Q3HR PRN Administration Pain Scale 7 to 10 Piperacillin Sod/Tazobactam 100 mls @ 25 mls/hr 10/02/20 16:00 10/04/20 16:33 Sod 3.375 gm/ Sodium Chloride IVPB 25 mls/hr Q8HR [facility] Administration Sodium Chloride 1,000 mls @ 75 mls/hr 10/03/20 09:00 10/04/20 16:33 Saline 0.9% IV 75 mls/hr .[id number] [facility] Administration Magnesium Hydroxide 2,400 mg 10/02/20 08:00 Magnesium Hydroxide 2,400 Mg/10 Ml Cup PO DAILY PRN Constipation Naloxone HCl 0.2 mg 10/02/20 08:00 Naloxone 0.4 Mg/Ml 1 Ml Vial IV Q2M PRN Opioid Reversal Naloxone HCl 0.2 mg 10/03/20 08:56 Naloxone 0.4 Mg/Ml 1 Ml Vial IV Q2M PRN Opioid Reversal Ondansetron HCl 4 mg 10/02/20 08:00 Ondansetron 4 Mg/2 Ml Vial IVP Q8H PRN Nausea And Vomiting Senna/Docusate Sodium 2 each 10/02/20 08:00 10/03/20 20:25 Sennosides-Docusate Sodium 1 Each Tab PO 2 each HS [facility] Administration Objective - Vital Signs Vital signs: Vital Signs Temp 98.1 F 10/04/20 16:15 Pulse 56 L 10/04/20 16:15 Resp 17 10/04/20 16:15 BP 87/48 10/04/20 16:15 Pulse Ox 96 10/04/20 16:15 Intake & Output 10/03/20 10/04/20 10/04/20 18:59 06:59 18:59 Intake Total 1530 Output Total 600 600 Balance 930 -600 Intake: IV 1000 Intake, IV Titration 530 Amount Sodium Chloride 0.9% 1, 480 000 ml @ 60 mls/hr IV . [id number] [facility] Rx#:[id number] ceFAZolin 2 gm In Sodium 50 Chloride 0.9% 50 ml @ 100 mls/hr IVPB Q8HR [facility] Rx# :[id number] Output: Urine 500 600 Estimated Blood Loss 100 Other: Voiding Method Indwelling Catheter Indwelling Catheter Indwelling Catheter - Exam GENERAL: The patient is alert and oriented x3, not in any acute distress. Well developed, well nourished. HEENT: Pupils are round and equally reacting to light. EOMI. No scleral icterus. No conjunctival pallor. Normocephalic, atraumatic. No pharyngeal erythema. No thyromegaly. CARDIOVASCULAR: S1 and S2 present. No murmurs, rubs, or gallops. PULMONARY: Chest is clear to auscultation, no wheezing or crackles. -ABDOMEN: Soft, nontender, nondistended, normoactive bowel sounds. No palpable organomegaly. Hair catheter is in place MUSCULOSKELETAL: No joint swelling or deformity. EXTREMITIES: No cyanosis, clubbing, or pedal edema. NEUROLOGICAL: Gross neurological examination did not reveal any focal deficits. SKIN: No rashes. no petechiae. - Labs CBC & Chem 7: 10/04/20 06:10 10/04/20 06:10 Labs: Abnormal Lab Results - Last 24 Hours (Table) 10/04/20 10/04/20 10/04/20 Range/Units 06:10 06:10 06:10 RBC 3.50 L (4.30-5.90) m/uL Hgb 10.5 L (13.0-17.5) gm/dL Hct 33.3 L (39.0-53.0) % Neutrophils # 8.2 H (1.3-7.7) k/uL Lymphocytes # 0.7 L (1.0-4.8) k/uL BUN 46.0 H (9.0-27.0) mg/dL Creatinine 2.0 H (0.6-1.5) mg/dL Est GFR (CKD-EPI)AfAm 35.5 L (60.0-200.0) Est GFR (CKD-EPI)NonAf 30.6 L (60.0-200.0) BUN/Creatinine Ratio 23.00 H (12.00-20.00) Ratio Glucose 118 H (70-110) mg/dL Calcium 8.5 L (8.7-10.3) mg/dL Procalcitonin 0.20 H (0.02-0.09) ng/mL Assessment and Plan Assessment: severe left hip osteoarthritis status post left total hip arthroplasty Acute kidney injury Chronic cystitis due to incomplete bladder emptying Hyperlipidemia Chronic heart failure History of coronary artery disease status post stent Chronic kidney disease, stage III history of DVT, PE, not on anticoagulation Plan: This is a pleasant 80 years old male who presents with left hip arthroplasty. Continue with postop care. Continue with gentle hydration Continue with Hair catheter as per urology service recommendation and follow-up as an outpatient Continue with Zosyn and follow-up culture results. Nephrology consult for high creatinine Pain management and DVT prophylaxis as per surgery primary team Labs and medication were reviewed.. Continue same treatment. Continue with symptomatic treatment. Resume home medication. Monitor lytes and vitals. DVT and GI prophylaxis. Further recommendations depends on the clinical course of the patient DVT prophylaxis Eliquis GI Prophylaxis: Pepcid PT/OT: Pending Thank you for consulting us, we will follow up
[2020-10-04] MEDS: SENNOSIDES-DOCUSATE SODIUM 1 EACH TAB PO SCH (20:54)
[2020-10-04] MEDS: ATORVASTATIN 80 MG TAB PO SCH (20:54)
[2020-10-05] MEDS: PIPERACILLIN-TAZOBACTAM 3.375 GM in SODIUM CHLORIDE 0.9% 100 ML IVPB SCH ×4 (00:45→23:41)
[2020-10-05] MEDS: SODIUM CHLORIDE 0.9% 1,000 ML IV SCH ×2 (05:49→16:52)
[2020-10-05] MEDS: FAMOTIDINE 20 MG TAB PO SCH (07:18)
[2020-10-05] MEDS: APIXABAN 2.5 MG TABLET PO SCH ×2 (07:18→21:03)
[2020-10-05] MEDS: HYDROcodone/APAP 5-325MG 1 EACH TAB PO PRN ×2 (08:52→17:08)
--- NOTE | 2020-10-05 08:56 | P.PN ---
Subjective Progress Note Date: 10/05/20 This is an 80-year-old male who is status post left total hip arthroplasty. This is postoperative day #2 and patient is seen and evaluated at bedside today. Patient reports soreness in the left hip today. Patient states that he has been up and walking with physical therapy. Patient states that he has not had a bowel movement yet. Patient denies any dizziness, fever/chills, numbness, weakness, tingling, abdominal pain, shortness of breath or chest pain. Objective - Vital Signs Vital signs: Vital Signs Temp 97.9 F 10/05/20 07:36 Pulse 53 L 10/05/20 07:36 Resp 18 10/05/20 07:36 BP 108/55 10/05/20 07:36 Pulse Ox 100 10/05/20 07:36 Intake & Output 10/04/20 10/05/20 10/05/20 18:59 06:59 18:59 Intake Total 500 200 Output Total 1500 Balance 500 -1500 200 Intake: Oral 500 200 Output: Urine 1500 Other: Voiding Method Indwelling Catheter Indwelling Catheter Indwelling Catheter - Exam Vital signs are stable. Patient is in no acute distress and is alert and oriented 3. Calf is soft and nontender to palpation. Dressing is clean, dry, and intact. Patient has full foot and ankle motion without pain or difficulty. Neurovascular status and circulatory status are intact. - Labs CBC & Chem 7: 10/04/20 06:10 10/04/20 06:10 Labs: Abnormal Lab Results - Last 24 Hours (Table) 10/04/20 10/04/20 10/04/20 Range/Units 06:10 06:10 19:50 BUN 46.0 H (9.0-27.0) mg/dL Creatinine 2.0 H (0.6-1.5) mg/dL Est GFR (CKD-EPI)AfAm 35.5 L (60.0-200.0) Est GFR (CKD-EPI)NonAf 30.6 L (60.0-200.0) BUN/Creatinine Ratio 23.00 H (12.00-20.00) Ratio Glucose 118 H (70-110) mg/dL Calcium 8.5 L (8.7-10.3) mg/dL Procalcitonin 0.20 H (0.02-0.09) ng/mL Urine Protein 1+ H (Negative) Urine Glucose (UA) 3+ H (Negative) Urine Blood Moderate H (Negative) Ur Leukocyte Esterase Large H (Negative) Urine RBC 47 H (0-5) /hpf Urine WBC 79 H (0-5) /hpf Urine WBC Clumps Few H (None) /hpf Urine Bacteria Rare H (None) /hpf Urine Mucus Rare H (None) /hpf Microbiology - Last 24 Hours (Table) 10/04/20 20:55 Urine Culture - Preliminary Urine,Catheterized Assessment and Plan (1) Osteoarthritis of left hip Current Visit: Yes Status: Acute Code(s): M16.12 - UNILATERAL PRIMARY OSTEOARTHRITIS, LEFT HIP SNOMED Code(s): 662947837355078 (2) Recurrent UTI Current Visit: Yes Status: Acute Code(s): N39.0 - URINARY TRACT INFECTION, SITE NOT SPECIFIED SNOMED Code(s): 417748996 Plan: Continue routine postop care and pain control. Continue anticoagulation with Eliquis due to history of DVT. Weightbearing as tolerated with a walker. Leave dressing in place for 10 days. Appreciate input from medicine and urology. Patient has Hair catheter in place and is receiving IV antibiotics per urology. Anticipate discharge home with homecare tomorrow.
[2020-10-05 10:49] LABS: African American GFR (CKD) 59.7 (60.0-200.0); Anion Gap 3.9 mmol/L (4.00-12.00); BUN/Creat Ratio 23.85 Ratio (12.00-20.00); Calcium 8.4 mg/dL (8.7-10.3); Carbon Dioxide 24.1 mmol/L (21.6-31.8); Non-African American GFR(CKD) 51.5 (60.0-200.0); Potassium 4.8 mmol/L (3.5-5.5)
--- NOTE | 2020-10-05 13:08 | P.NPCON ---
History of Present Illness - Reason for Consult acute renal failure - History of Present Illness Reason for consultation: Acute kidney injury History of present illness: Patient is a 80-year-old male seen in renal consultation for acute kidney injury. Patient's baseline creatinine is near 1. It was elevated at 2.0 on admission. It is down to 1.3 today. He is currently maintained on normal saline at 75 mL an hour. His blood pressure has also been low mostly in the systolic 80s to 90s. Patient has history of hypertension and was maintained on Lasix as well as lisinopril outpatient. Both are currently held. Patient has history of severe osteoarthritis of the left hip and underwent left total hip arthroplasty on 10/03/2020. He has a Hair catheter in place. Nonoliguric. Oral intake is good. Denies vomiting or diarrhea. Denies chest pain or shortness of breath. No edema. Currently in no pain. No history of diabetes. No active complaints. Vital signs are stable. General: The patient appeared well nourished and normally developed. HEENT: Head exam is unremarkable. Neck is without jugular venous distension. LUNGS: Breath sounds decreased. HEART: Rate and Rhythm are regular. ABDOMEN: Soft, nontender. EXTREMITITES: No edema. Past Medical History Past Medical History: Coronary Artery Disease (CAD), Heart Failure, Deep Vein Thrombosis (DVT), Hyperlipidemia, Pneumonia, Prostate Disorder, Pulmonary Embolus (PE) Additional Past Medical History / Comment(s): recurrent UTIs,UTI with sepsis, bladder stones and kidney stones, chronic anemia, chronic low back pain, neuropathy R foot,discitis T 11 12 w/ iv abx History of Any Multi-Drug Resistant Organisms: ESBL Date of last positivie culture/infection: 09/13/20 MDRO Source:: ESBL URINE Past Surgical History: Appendectomy, Heart Catheterization, Heart Catheteriz ation With Stent, Prostate Surgery Additional Past Surgical History / Comment(s): lithotripsy 12-08-19,Bladder stone removal 03/2018, TURP, colonoscopy, . Past Anesthesia/Blood Transfusion Reactions: No Reported Reaction Date of Last Stent Placement:: January 2019 Additional Psychological History / Comment(s): Pt resides with his spouse. He uses no assistive device but they do own a cane and a walker. 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 - Past Family History Father Family Medical History: No Reported History Additional Family Medical History / Comment(s): Father was healthy and lived to be 95 yrs old. Mother Family Medical History: No Reported History Additional Family Medical History / Comment(s): . Medications and Allergies Home Medications Medication Instructions Recorded Confirmed Type Aspirin 81 mg PO DAILY #30 chew 02/24/18 10/02/20 Rx Atorvastatin [Lipitor] 80 mg PO HS 05/06/19 10/02/20 History Potassium Chloride ER [K-Dur 10] 10 meq PO DAILY #30 tab 05/10/20 10/02/20 Rx Ferrous Sulfate [Iron (65 MG 325 mg PO DAILY #30 tab 05/15/20 10/02/20 Rx Elemental)] Furosemide [Lasix] 40 mg PO DAILY 09/15/20 10/02/20 History lisinopriL [Zestril] 5 mg PO DAILY 09/15/20 10/02/20 History Diclofenac Sodium Gel [Voltaren 2 gm TOPICAL TID PRN 10/02/20 10/02/20 History Gel] Famotidine [Pepcid] 20 mg PO BID 10/02/20 10/02/20 History Apixaban [Eliquis] 2.5 mg PO BID 35 Days #70 tab 10/04/20 Rx Sennosides [Senokot] 2 tab PO DAILY PRN #60 tablet 10/04/20 Rx Allergies Allergy/AdvReac Type Severity Reaction Status Date / Time No Known Allergies Allergy Verified 10/02/20 09:50 Physical Exam Vitals: Vital Signs Temp Pulse Resp BP Pulse Ox 10/05/20 07:36 97.9 F 53 L 18 108/55 100 10/05/20 07:24 16 10/05/20 00:34 98.3 F 53 L 14 98/59 97 10/04/20 18:58 98.8 F 59 L 15 107/64 92 L 10/04/20 16:15 98.1 F 56 L 17 87/48 96 Intake and Output 10/04/20 10/05/20 10/05/20 22:59 06:59 14:59 Intake Total 500 200 Output Total 1000 500 Balance -500 -500 200 Intake: Oral 500 200 Output: Urine 1000 500 Other: Voiding Method Indwelling Catheter Indwelling Catheter Indwelling Catheter Results - Lab Results Most recent lab results Calcium 8.4 mg/dL (8.7-10.3) L 10/05/20 07:00 10/04/20 06:10 10/05/20 07:00 Assessment and Plan Plan: Assessment: 1. Acute kidney injury mostly prerenal secondary to hypotension. Creatinine was 21 admission and is down to 1.3 today. 2. Left hip osteoarthritis status post left hip arthroplasty in 10/03/2020. 3. Hypotension improving with IV hydration. Lisinopril held. Cortisol level normal. 4. UTI maintained on antibiotics. Urine culture pending. Plan: Maintain normal saline. Encourage oral intake. Check renal ultrasound. Avoid nephrotoxins. Hold antihypertensives. Repeat electrolytes in the morning. Thank you for the consultation. I will continue to follow the patient with you during his hospital stay.
--- NOTE | 2020-10-05 14:03 | US ---
EXAMINATION TYPE: US kidneys/renal and bladder DATE OF EXAM: 10/05/2020 COMPARISON: US, CT CLINICAL HISTORY: violetta. UTI, left hip replacement; prior renal stones EXAM MEASUREMENTS: Right Kidney: 9.6 x 5.5 x 4.0 cm Left Kidney: 9.1 x 4.5 x 4.2 cm Post Void Residual Volume: not assessed on inpatient with indwelling bladder catheter Incidental finding: right lobe liver cyst cluster noted = 1.3 x 1.2 x 1.0cm Right Kidney: mid lower pole cortical cyst = 2..0 x 2.1 x 2.2cm Left Kidney: No hydronephrosis or masses seen Bladder: echogenic bladder wall/contents noted with indwelling bladder catheter present. IMPRESSION: 1. No hydronephrosis or hydronephrosis. 2. Bladder is limited assessment due to Hair catheter. Echogenic bladder wall contents noted which a re nonspecific could be correlated with CAT scan. Thickened bladder wall or mucosal lesion not exclud ed
--- NOTE | 2020-10-05 18:52 | P.PN ---
Subjective This is a pleasant 80 years old male with past medical history of coronary artery disease, status post stent placement, chronic heart failure, deep venous thrombosis, hyperlipidemia, pulmonary embolism on anticoagulation. Patient was admitted for severe left hip osteoarthritis status post left total hip arthroplasty. Today is postoperative day #0. Currently patient lying in bed comfortable, daughter at bedside, he denies chest pain or dyspnea, no abdominal pain, no nausea vomiting Hair catheter is in place Patient states that he has history of right leg DVT and PE in 2007 and that currently he is not on anticoagulation Vitas looks stable, blood pressure is 93/52. Labs showing mild leukocytosis of 12.3 K, creatinine is elevated at 2.0, baseline is 1.2-1.6. Rest of BMP and liver enzymes were unremarkable. Patient also has been evaluated by neurologist Dr. Zuñiga for his UTI, as per Dr. Zuñiga patient has chronic cystitis and need culture specific antibiotics and continue with indwelling Hair catheter for incomplete bladder emptying. Currently he is on Zosyn. Also patient is on normal saline 60-65 mL/h Patient also was started on Eliquis 2.5 mg twice daily 10/04/2020 Consulting sitting in bed, not in distress with no complaint, he denies dizziness or chest pain or dyspnea. He's with expected pain at the left hip surgical site, patient states that he woke today with physical therapist and he was doing well. He is a still hypotensive with blood pressure low-normal with slight improvement today, his IV fluid is normal saline at 75 mL/h TSH normal at 1.0, cortisol is normal at 18.2. Creatinine is still elevated at 2.0, urine analysis was suspicious for infection. proCalcitonin elevated at 0.2, patient remains on Zosyn. WBC back to normal today at 10.0. Also he is on normal saline at 75 ml/h and Eliquis 2.5 Consult nephrology for acute kidney injury 10/05/2020 Patient complaining of from pain at his left hip surgical site, no other new complaints. Vital signs stable Renal ultrasound showed no hydronephrosis, echogenic contents and the bladder cannot be excluded and the recommended to correlate with CAT scan, thickened bladder wall mucosal thickening excluded as well. WBC is back to normal as well as his creatinine came down to 1.3. Nephrology input is appreciated patient remains on Zosyn for UTI, urine culture is pending keep monitor labs. We will keep monitoring Objective - Vital Signs Vital signs: Vital Signs Temp 98.4 F 10/05/20 15:01 Pulse 57 L 10/05/20 15:01 Resp 16 10/05/20 16:00 BP 108/55 10/05/20 15:01 Pulse Ox 96 10/05/20 15:01 Intake & Output 10/04/20 10/05/20 10/05/20 18:59 06:59 18:59 Intake Total 500 400 Output Total 1500 Balance 500 -1500 400 Intake: Intake, IV Titration 100 Amount Piperacillin-Tazobactam 3 100 .375 gm In Sodium Chloride 0.9% 100 ml @ 25 mls/hr IVPB Q8HR [facility] Rx# :[id number] Oral 500 300 Output: Urine 1500 Other: Voiding Method Indwelling Catheter Indwelling Catheter Indwelling Catheter - Exam GENERAL: The patient is alert and oriented x3, not in any acute distress. Well developed, well nourished. HEENT: Pupils are round and equally reacting to light. EOMI. No scleral icterus. No conjunctival pallor. Normocephalic, atraumatic. No pharyngeal erythema. No thyromegaly. CARDIOVASCULAR: S1 and S2 present. No murmurs, rubs, or gallops. PULMONARY: Chest is clear to auscultation, no wheezing or crackles. -ABDOMEN: Soft, nontender, nondistended, normoactive bowel sounds. No palpable organomegaly. Hair catheter is in place MUSCULOSKELETAL: No joint swelling or deformity. EXTREMITIES: No cyanosis, clubbing, or pedal edema. NEUROLOGICAL: Gross neurological examination did not reveal any focal deficits. SKIN: No rashes. no petechiae. - Labs CBC & Chem 7: 10/04/20 06:10 10/05/20 07:00 Labs: Abnormal Lab Results - Last 24 Hours (Table) 10/04/20 10/05/20 Range/Units 19:50 07:00 Anion Gap 3.90 L (4.00-12.00) mmol/L BUN 31.0 H (9.0-27.0) mg/dL Est GFR (CKD-EPI)AfAm 59.7 L (60.0-200.0) Est GFR (CKD-EPI)NonAf 51.5 L (60.0-200.0) BUN/Creatinine Ratio 23.85 H (12.00-20.00) Ratio Calcium 8.4 L (8.7-10.3) mg/dL Urine Protein 1+ H (Negative) Urine Glucose (UA) 3+ H (Negative) Urine Blood Moderate H (Negative) Ur Leukocyte Esterase Large H (Negative) Urine RBC 47 H (0-5) /hpf Urine WBC 79 H (0-5) /hpf Urine WBC Clumps Few H (None) /hpf Urine Bacteria Rare H (None) /hpf Urine Mucus Rare H (None) /hpf Microbiology - Last 24 Hours (Table) 10/04/20 20:55 Urine Culture - Preliminary Urine,Catheterized Assessment and Plan Assessment: severe left hip osteoarthritis status post left total hip arthroplasty Acute kidney injury Chronic cystitis due to incomplete bladder emptying Hyperlipidemia Chronic heart failure History of coronary artery disease status post stent Chronic kidney disease, stage III history of DVT, PE, not on anticoagulation Plan: This is a pleasant 80 years old male who presents with left hip arthroplasty. Continue with postop care. Continue with gentle hydration Continue with Hair catheter as per urology service recommendation and follow-up as an outpatient Continue with Zosyn and follow-up culture results. Nephrology consult for high creatinine Pain management and DVT prophylaxis as per surgery primary team Labs and medication were reviewed.. Continue same treatment. Continue with symptomatic treatment. Resume home medication. Monitor lytes and vitals. DVT and GI prophylaxis. Further recommendations depends on the clinical course of the patient DVT prophylaxis Eliquis GI Prophylaxis: Pepcid PT/OT: Pending Thank you for consulting us, we will follow up
[2020-10-05] MEDS: ATORVASTATIN 80 MG TAB PO SCH (21:03)
[2020-10-05] MEDS: SENNOSIDES-DOCUSATE SODIUM 1 EACH TAB PO SCH (21:03)
[2020-10-06] MEDS: HYDROcodone/APAP 5-325MG 1 EACH TAB PO PRN ×2 (06:26→17:50)
[2020-10-06 07:33] LABS: Basophils % (A) 0 %; Eosinophils # (A) 0.4 k/uL (0-0.7); Eosinophils % (A) 5 %; HCT 32.1 % (39.0-53.0); HGB 10.1 gm/dL (13.0-17.5); Lymphocytes # (A) 0.8 k/uL (1.0-4.8); Lymphocytes % (A) 11 %; MCH 29.6 pg (25.0-35.0); MCHC 31.6 g/dL (31.0-37.0); MCV 93.7 fL (80.0-100.0); Mean Platelet Volume 7.7; Monocytes # (A) 0.4 k/uL (0-1.0); Monocytes % (A) 6 %; Neutrophils # (A) 5.2 k/uL (1.3-7.7); Neutrophils % (A) 75 %; Platelet Count 147 k/uL (150-450); RBC 3.42 m/uL (4.30-5.90); RDW 14.4 % (11.5-15.5)
--- NOTE | 2020-10-06 07:33 | P.PN ---
Subjective Progress Note Date: 10/06/20 the patient has recurrent utis due to incomplete emptying of his bladder He recently has cystoscopy identifying chronic cystitis without intraluminal lesion He does not need a ct scan for bladder assessment. Objective - Vital Signs Vital signs: Vital Signs Temp 97.5 F L 10/06/20 01:47 Pulse 89 10/06/20 01:47 Resp 19 10/06/20 01:47 BP 99/62 10/06/20 01:47 Pulse Ox 94 L 10/06/20 01:47 Intake & Output 10/05/20 10/06/20 10/06/20 18:59 06:59 18:59 Intake Total 400 Output Total 1350 Balance 400 -1350 Intake: Intake, IV Titration 100 Amount Piperacillin-Tazobactam 3 100 .375 gm In Sodium Chloride 0.9% 100 ml @ 25 mls/hr IVPB Q8HR [facility] Rx# :[id number] Oral 300 Output: Urine 1350 Other: Voiding Method Indwelling Catheter Indwelling Catheter # Voids 1 # Bowel Movements 1 - Labs CBC & Chem 7: 10/04/20 06:10 10/05/20 07:00 Labs: Abnormal Lab Results - Last 24 Hours (Table) 10/05/20 Range/Units 07:00 Anion Gap 3.90 L (4.00-12.00) mmol/L BUN 31.0 H (9.0-27.0) mg/dL Est GFR (CKD-EPI)AfAm 59.7 L (60.0-200.0) Est GFR (CKD-EPI)NonAf 51.5 L (60.0-200.0) BUN/Creatinine Ratio 23.85 H (12.00-20.00) Ratio Calcium 8.4 L (8.7-10.3) mg/dL Microbiology - Last 24 Hours (Table) 10/04/20 20:55 Urine Culture - Final Urine,Catheterized
--- NOTE | 2020-10-06 08:14 | P.DS ---
Providers Date of admission: 10/02/20 08:12 Expected date of discharge: 10/06/20 Attending physician: Ming Byrne Consults: 09/29/20 14:22 Consult Physician Routine Consulting Provider: Melissa Dubon Consult Reason/Comments: medical management Do you want consulting provider notified?: Yes 10/02/20 08:00 Consult Physician Routine Consulting Provider: Cam Ryan Consult Reason/Comments: IV antibiotics and peralta for UTI Do you want consulting provider notified?: Yes 10/04/20 13:37 Consult Physician Urgent Consulting Provider: Se Norton Consult Reason/Comments: violetta Do you want consulting provider notified?: Yes Primary care physician: Wanda Jameson - Discharge Diagnosis(es) (1) Osteoarthritis of left hip Current Visit: Yes Status: Acute (2) Recurrent UTI Current Visit: Yes Status: Acute Hospital Course: This is a 80-year-old male with known history of degenerative arthritis of the left hip. The patient presented for evaluation as an outpatient. After discussion and consideration patient elects to proceed with total hip arthroplasty. The patient is seen preoperatively by Dr. Byrne and medically cleared for surgery by their primary care physician. Patient is [facility] on 10/02/2020 for preoperative IV antibiotics and Peralta placement per urology due to chronic UTI. Left total hip arthroplasty is performed on 10/03/2020. The procedure is performed without complication or sequelae. The patient is doing well postoperatively. Labs and vital signs are stable on day of discharge. On day of discharge patient's hip incision is healing well. There is minimal erythema. There is no drainage noted at this time. There is minimal soft tissue swelling to the hip and thigh. Patient has full foot and ankle motion without difficulty or pain. Calf is soft and nontender to palpation. Neurovascular status to the left lower extremity is intact. Patient is discharged home in good condition. Opioid start talking form is reviewed and signed. Please see med rec for accurate list of home medications. Plan - Discharge Summary Discharge Rx Participant: Yes New Discharge Prescriptions: New Apixaban [Eliquis] 2.5 mg PO BID 35 Days #70 tab Sennosides [Senokot] 2 tab PO DAILY PRN #60 tablet PRN Reason: Constipation HYDROcodone/APAP 7.5-325MG [[place] 7.5-325] 1 - 2 tab PO Q6H PRN #32 tab PRN Reason: Pain No Action Aspirin 81 mg PO DAILY #30 chew Atorvastatin [Lipitor] 80 mg PO HS Potassium Chloride ER [K-Dur 10] 10 meq PO DAILY #30 tab Ferrous Sulfate [Iron (65 MG Elemental)] 325 mg PO DAILY #30 tab Furosemide [Lasix] 40 mg PO DAILY lisinopriL [Zestril] 5 mg PO DAILY Famotidine [Pepcid] 20 mg PO BID Diclofenac Sodium Gel [Voltaren Gel] 2 gm TOPICAL TID PRN PRN Reason: Pain Discharge Medication List Aspirin 81 mg PO DAILY #30 chew 02/24/18 [Rx] Atorvastatin [Lipitor] 80 mg PO HS 05/06/19 [History] Potassium Chloride ER [K-Dur 10] 10 meq PO DAILY #30 tab 05/10/20 [Rx] Ferrous Sulfate [Iron (65 MG Elemental)] 325 mg PO DAILY #30 tab 05/15/20 [Rx] Furosemide [Lasix] 40 mg PO DAILY 09/15/20 [History] lisinopriL [Zestril] 5 mg PO DAILY 09/15/20 [History] Diclofenac Sodium Gel [Voltaren Gel] 2 gm TOPICAL TID PRN 10/02/20 [History] Famotidine [Pepcid] 20 mg PO BID 10/02/20 [History] Apixaban [Eliquis] 2.5 mg PO BID 35 Days #70 tab 10/04/20 [Rx] Sennosides [Senokot] 2 tab PO DAILY PRN #60 tablet 10/04/20 [Rx] HYDROcodone/APAP 7.5-325MG [[place] 7.5-325] 1 - 2 tab PO Q6H PRN #32 tab 10/06/20 [Rx] Follow up Appointment(s)/Referral(s): Bekah Lemon PAC [PHYSICIAN PLASMA SPECIALIST] - 10/16/20 1:45 pm Trino Muñoz MD [Primary Care Provider] - 1 Week [facility], [NON-STAFF] - As Needed Cam Ryan MD [STAFF PHYSICIAN] - 1 Week Activity/Diet/Wound Care/Special Instructions: Weightbearing as tolerated with walker. Leave dressing intact. Dressing may be removed by home care nurse or by patient in 10 days. May shower with dressing on. Please take Eliquis twice daily for 35 days to help prevent blood clots. Recommend use of compression stockings daily until follow up to help prevent swelling and blood clots. May remove at night before sleeping. Please follow-up with [facility] in 2 weeks and call with any questions or concerns, . Discharge Disposition: HOME WITH HOME HEALTH SERVICES
[2020-10-06] MEDS: FAMOTIDINE 20 MG TAB PO SCH (08:53)
[2020-10-06] MEDS: APIXABAN 2.5 MG TABLET PO SCH (08:53)
[2020-10-06] MEDS: SODIUM CHLORIDE 0.9% 1,000 ML IV SCH (08:56)
[2020-10-06] MEDS: PIPERACILLIN-TAZOBACTAM 3.375 GM in SODIUM CHLORIDE 0.9% 100 ML IVPB SCH ×2 (08:58→17:49)
[2020-10-06 09:24] VITALS: BP 112/60; PULSE 73; RESP 16; TEMP 98.3
[2020-10-06 11:01] LABS: African American GFR (CKD) 54.6 (60.0-200.0); BUN/Creat Ratio 17.14 Ratio (12.00-20.00); Calcium 8.4 mg/dL (8.7-10.3); Non-African American GFR(CKD) 47.1 (60.0-200.0); Potassium 4.6 mmol/L (3.5-5.5)
--- NOTE | 2020-10-06 11:23 | P.PN ---
Subjective Patient is seen in follow for acute kidney injury. Renal function is stable. Good urine output. Has a Hair catheter. Oral intake fair. No chest pain or shortness of breath. Vital signs are stable. General: The patient appeared well nourished and normally developed. HEENT: Head exam is unremarkable. Neck is without jugular venous distension. LUNGS: Lungs are clear to auscultation and percussion. Breath sounds decreased. HEART: Rate and Rhythm are regular. ABDOMEN: Soft, nontender. EXTREMITITES: No edema. Objective - Vital Signs Vital signs: Vital Signs Temp 98.3 F 10/06/20 09:21 Pulse 73 10/06/20 09:21 Resp 16 10/06/20 09:21 BP 112/60 10/06/20 09:21 Pulse Ox 96 10/06/20 09:21 Intake & Output 10/05/20 10/06/20 10/06/20 18:59 06:59 18:59 Intake Total 400 Output Total 1350 Balance 400 -1350 Intake: Intake, IV Titration 100 Amount Piperacillin-Tazobactam 3 100 .375 gm In Sodium Chloride 0.9% 100 ml @ 25 mls/hr IVPB Q8HR [facility] Rx# :[id number] Oral 300 Output: Urine 1350 Other: Voiding Method Indwelling Catheter Indwelling Catheter Indwelling Catheter # Voids 1 # Bowel Movements 1 - Labs CBC & Chem 7: 10/06/20 06:47 10/06/20 06:47 Labs: Abnormal Lab Results - Last 24 Hours (Table) 10/06/20 10/06/20 Range/Units 06:47 06:47 RBC 3.42 L (4.30-5.90) m/uL Hgb 10.1 L (13.0-17.5) gm/dL Hct 32.1 L (39.0-53.0) % Plt Count 147 L (150-450) k/uL Lymphocytes # 0.8 L (1.0-4.8) k/uL Est GFR (CKD-EPI)AfAm 54.6 L (60.0-200.0) Est GFR (CKD-EPI)NonAf 47.1 L (60.0-200.0) Calcium 8.4 L (8.7-10.3) mg/dL Microbiology - Last 24 Hours (Table) 10/04/20 20:55 Urine Culture - Final Urine,Catheterized Assessment and Plan Plan: Assessment: 1. Acute kidney injury mostly prerenal secondary to hypotension. Creatinine was 21 admission and is stable at 1.4 today. No hydronephrosis noted on kidney ultrasound. 2. Left hip osteoarthritis status post left hip arthroplasty in 10/03/2020. 3. Hypotension improving with IV hydration. Lisinopril held. Cortisol level normal. 4. UTI maintained on antibiotics. Urine culture shows no growth so far. Plan: Hep-Lock IV fluids. Encourage oral intake. Avoid nephrotoxins. Hold antihypertensives. Anticipate discharge soon. Follow up outpatient in 1-2 weeks.
[2020-10-06 14:27] LABS: Appearance,Urine Clear (Clear); Bilirubin,Urine Negative (Negative); Blood,Urine Moderate (Negative); Color,Urine Light Yellow; Glucose,Urine (UA) 2+ (Negative); Hyaline Casts,Urine 1 /lpf (0-2); Ketones,Urine Negative (Negative); Leukocyte Esterase,Urine Moderate (Negative); Mucus,Urine Rare /hpf; Nitrite,Urine Negative (Negative); Protein,Urine 1+ (Negative); RBC,Urine 28 /hpf (0-5); Specific Gravity,Urine 1.016 (1.001-1.035); Urobilinogen,Urine <2.0 mg/dL (<2.0); WBC,Urine 9 /hpf (0-5)
--- NOTE | 2020-10-06 15:28 | P.PN ---
Subjective This is a pleasant 80 years old male with past medical history of coronary artery disease, status post stent placement, chronic heart failure, deep venous thrombosis, hyperlipidemia, pulmonary embolism on anticoagulation. Patient was admitted for severe left hip osteoarthritis status post left total hip arthroplasty. Today is postoperative day #0. Currently patient lying in bed comfortable, daughter at bedside, he denies chest pain or dyspnea, no abdominal pain, no nausea vomiting Hair catheter is in place Patient states that he has history of right leg DVT and PE in 2007 and that currently he is not on anticoagulation Vitas looks stable, blood pressure is 93/52. Labs showing mild leukocytosis of 12.3 K, creatinine is elevated at 2.0, baseline is 1.2-1.6. Rest of BMP and liver enzymes were unremarkable. Patient also has been evaluated by neurologist Dr. Zuñiga for his UTI, as per Dr. Zuñiga patient has chronic cystitis and need culture specific antibiotics and continue with indwelling Hair catheter for incomplete bladder emptying. Currently he is on Zosyn. Also patient is on normal saline 60-65 mL/h Patient also was started on Eliquis 2.5 mg twice daily 10/04/2020 Consulting sitting in bed, not in distress with no complaint, he denies dizziness or chest pain or dyspnea. He's with expected pain at the left hip surgical site, patient states that he woke today with physical therapist and he was doing well. He is a still hypotensive with blood pressure low-normal with slight improvement today, his IV fluid is normal saline at 75 mL/h TSH normal at 1.0, cortisol is normal at 18.2. Creatinine is still elevated at 2.0, urine analysis was suspicious for infection. proCalcitonin elevated at 0.2, patient remains on Zosyn. WBC back to normal today at 10.0. Also he is on normal saline at 75 ml/h and Eliquis 2.5 Consult nephrology for acute kidney injury 10/05/2020 Patient complaining of from pain at his left hip surgical site, no other new complaints. Vital signs stable Renal ultrasound showed no hydronephrosis, echogenic contents and the bladder cannot be excluded and the recommended to correlate with CAT scan, thickened bladder wall mucosal thickening excluded as well. WBC is back to normal as well as his creatinine came down to 1.3. Nephrology input is appreciated patient remains on Zosyn for UTI, urine culture is pending keep monitor labs. We will keep monitoring 10/06/2020 Patient today also with no symptoms other than pain Vitas has been stable at the surgical sites which is expected, it has been the same for the last few days.Also with no abdominal pain or nausea vomiting. Vitals has been stable, blood pressure improved with IV hydration which is a stop now per nephrology team and I agree with this labs from today showing normal WBC at 7.0K, hemoglobin 10.1, platelet count is 140 7K, BMP is unremarkable and creatinine stable and normal at 1.4. Urine culture: No growth after 18 hours, however urine culture is obtained while patient is on Zosyn.Repeat urine analysis today showing ordered blood, moderate leukocytes esterase Physical has Hair catheter Patient currently is still on Zosyn and/or muscle and was stopped Nephrology, urology cases are on the case Objective - Vital Signs Vital signs: Vital Signs Temp 98.3 F 10/06/20 09:21 Pulse 73 10/06/20 09:21 Resp 16 10/06/20 09:21 BP 112/60 10/06/20 09:21 Pulse Ox 96 10/06/20 09:21 Intake & Output 10/05/20 10/06/20 10/06/20 18:59 06:59 18:59 Intake Total 400 Output Total 1350 Balance 400 -1350 Intake: Intake, IV Titration 100 Amount Piperacillin-Tazobactam 3 100 .375 gm In Sodium Chloride 0.9% 100 ml @ 25 mls/hr IVPB Q8HR [facility] Rx# :[id number] Oral 300 Output: Urine 1350 Other: Voiding Method Indwelling Catheter Indwelling Catheter Indwelling Catheter # Voids 1 # Bowel Movements 1 - Exam GENERAL: The patient is alert and oriented x3, not in any acute distress. Well developed, well nourished. HEENT: Pupils are round and equally reacting to light. EOMI. No scleral icterus. No conjunctival pallor. Normocephalic, atraumatic. No pharyngeal erythema. No thyromegaly. CARDIOVASCULAR: S1 and S2 present. No murmurs, rubs, or gallops. PULMONARY: Chest is clear to auscultation, no wheezing or crackles. -ABDOMEN: Soft, nontender, nondistended, normoactive bowel sounds. No palpable organomegaly. Hair catheter is in place MUSCULOSKELETAL: No joint swelling or deformity. EXTREMITIES: No cyanosis, clubbing, or pedal edema. NEUROLOGICAL: Gross neurological examination did not reveal any focal deficits. SKIN: No rashes. no petechiae. - Labs CBC & Chem 7: 10/06/20 06:47 11 06:47 Labs: Abnormal Lab Results - Last 24 Hours (Table) 10/06/20 10/06/20 10/06/20 Range/Units 06:47 06:47 14:15 RBC 3.42 L (4.30-5.90) m/uL Hgb 10.1 L (13.0-17.5) gm/dL Hct 32.1 L (39.0-53.0) % Plt Count 147 L (150-450) k/uL Lymphocytes # 0.8 L (1.0-4.8) k/uL Est GFR (CKD-EPI)AfAm 54.6 L (60.0-200.0) Est GFR (CKD-EPI)NonAf 47.1 L (60.0-200.0) Calcium 8.4 L (8.7-10.3) mg/dL Urine Protein 1+ H (Negative) Urine Glucose (UA) 2+ H (Negative) Urine Blood Moderate H (Negative) Ur Leukocyte Esterase Moderate H (Negative) Urine RBC 28 H (0-5) /hpf Urine WBC 9 H (0-5) /hpf Urine Mucus Rare H (None) /hpf Microbiology - Last 24 Hours (Table) 10/04/20 20:55 Urine Culture - Final Urine,Catheterized Assessment and Plan Assessment: severe left hip osteoarthritis status post left total hip arthroplasty Acute kidney injury Chronic cystitis due to incomplete bladder emptying Hyperlipidemia Chronic heart failure History of coronary artery disease status post stent Chronic kidney disease, stage III history of DVT, PE, not on anticoagulation Plan: This is a pleasant 80 years old male who presents with left hip arthroplasty. Continue with postop care. Discontinue IV fluid gentle hydration. Patient looks medically stable. Continue with Hair catheter as per urology service recommendation and follow-up as an outpatient. Nephrology input is appreciated patient currently on Zosyn, his repeat urine analysis still abnormal although it shows improvement. Patient is asymptomatic. Management of antibiotic upon discharge should be as per urology team as per recommendation from orthopedics primary team, otherwise I would recommend infectious disease consult given his history of ESBL Klebsiella. This was discussed with the bed side nurse today I agree with close follow-up appointment with urology upon discharge. Patient has an appointment with Dr. Ryan on 10/13 Pain management and DVT prophylaxis as per surgery primary team Labs and medication were reviewed.. Continue same treatment. Continue with symptomatic treatment. Resume home medication. Monitor lytes and vitals. DVT and GI prophylaxis. Further recommendations depends on the clinical course of the patient DVT prophylaxis Eliquis GI Prophylaxis: Pepcid PT/OT: Pending Thank you for consulting us,please let me know if if I can be of any further help
--- NOTE | 2020-10-09 08:07 | CDI ---
Documentation Clarification Form Date: 10/09/20 From: Alexia Kearns CCS Phone: If you have a question about this query, please contact Iris Chang, Library Clerical Assistant at [phone] between 8am and 5pm. Admit Date: 10/02/20 Discharge Date:10/06/20 Patient Name: Rafiq Cook Visit Number: [id number] ATTENTION: The Clinical Documentation Specialists (CDI) and [facility] Coding Staff appreciate your assistance in clarifying documentation. Please respond to the clarification below the line at the bottom and electronically sign. The CDI & [facility] Coding staff will review the response and follow-up if needed. Please note: Queries are made part of the Legal Health Record. If you have any questions, please contact the author of this message via ITS. Dear Dr. Byrne, Hypotension is documented in the 10/05 Consult, PNs. PNs document: He is a still hypotensive with blood pressure low-normal with slight improvement today, his IV fluid is normal saline at 75 mL/h TSH normal at 1.0, cortisol is normal at 18.2 Consult 10/05 documents: Acute kidney injury mostly prerenal secondary to hypotension. Hypotension improving with IV hydration. History/Risk Factors: Chronic cystitis, CKD, HTN, CHF, BPH, CAD, Post Op Arthroplasty Clinical Indicators: Hypotensive postoperatively Patients B/P: 87/48, 98/59 Treatment: Monitor, IV hydration In your professional opinion, can you please specify the etiology of the hypotension if known? Orthostatic Hypotension Postural Hypotension Idiopathic Hypotension Drug Induced Hypotension (please specify drug) Postoperative Hypotension - Expected Outcome Postoperative Hypotension- Unexpected Outcome Other Condition, please specify Unable to determine Unable to determine MTDD
== END 2020-10-06 19:21 | disposition home health service (06) | DRG 470 ==
LOC: 4SSUR 08:12
PROVIDERS: ADMIT Orthopaedic Surgery; ATTEND Orthopaedic Surgery
PROC: 0SRB06A Replacement of Left Hip Joint with Oxidized Zirconium on Polyethylene Synthetic Substitute, Uncemented, Open Approach (ICD-10-PCS; principal; 2020-10-03 07:00)
DX: M16.12 Unilateral primary osteoarthritis, left hip (principal); N17.9 Acute kidney failure, unspecified; I13.0 Hypertensive heart and chronic kidney disease with heart failure and stage 1 through stage 4 chronic kidney disease, or unspecified chronic kidney disease; I50.32 Chronic diastolic (congestive) heart failure; D63.1 Anemia in chronic kidney disease; I95.9 Hypotension, unspecified; N18.30 Chronic kidney disease, stage 3 unspecified; N30.20 Other chronic cystitis without hematuria; E78.5 Hyperlipidemia, unspecified; G89.29 Other chronic pain; I25.10 Atherosclerotic heart disease of native coronary artery without angina pectoris; G57.91 Unspecified mononeuropathy of right lower limb; M54.5 Low back pain; N40.1 Benign prostatic hyperplasia with lower urinary tract symptoms; R39.14 Feeling of incomplete bladder emptying; K59.00 Constipation, unspecified; I25.2 Old myocardial infarction; Z79.82 Long term (current) use of aspirin; Z79.899 Other long term (current) drug therapy; Z87.440 Personal history of urinary (tract) infections; Z86.711 Personal history of pulmonary embolism; Z86.718 Personal history of other venous thrombosis and embolism; Z87.442 Personal history of urinary calculi; Z87.01 Personal history of pneumonia (recurrent); Z90.49 Acquired absence of other specified parts of digestive tract; Z95.5 Presence of coronary angioplasty implant and graft; Z98.890 Other specified postprocedural states; Z90.79 Acquired absence of other genital organ(s)
CPT/HCPCS: 73501; 76770; 80048; 80053; 81001; 82533; 83735; 84145; 84443; 85025; 85610; 86891; 87086; 88300

== ENCOUNTER → 2020-11-28 | Outpatient (CLI) | payer MEDICARE ==
--- NOTE | 2020-11-28 13:43 | CT ---
EXAMINATION TYPE: CT abdomen pelvis wo con DATE OF EXAM: 11/28/2020 HISTORY: Mid abdominal and bilateral flank pain. CT DLP: 612.7 mGycm. Automated Exposure Control for Dose Reduction was Utilized. TECHNIQUE: CT scan of the abdomen and pelvis is performed without oral or IV contrast. COMPARISON: CT abdomen and pelvis March 01, 2019 FINDINGS: Within the limitations of a non-contrast study, the following observations are made. LUNG BASES: Some motion artifact degradation. Mild linear scarring and/or atelectasis redemonstrated. Coronary artery calcification and/or stents redemonstrated. Small degree of right-sided gynecomastia . LIVER/GB: Several simple appearing thin-walled cysts of varying size and shape throughout the liver r edemonstrated. PANCREAS: No significant abnormality is seen. SPLEEN: No significant abnormality is seen. ADRENALS: No significant abnormality is seen. KIDNEYS: There is 4 mm calculus left kidney lower pole level coronal image 63 redemonstrated. Other s maller calculi are not clearly seen. Bladder shows mild/moderate wall thickening greatest along the l eft aspect. Stable 2.0 cm partially exophytic low dense lesion anteriorly right kidney mid to lower p ole level axial image 61 presumed simple thin-walled cyst. BOWEL: Mild distal colonic diverticulosis. No convincing CT evidence for acute diverticulitis. GENITAL ORGANS: Markedly enlarged prostate gland consistent with BPH. LYMPH NODES: No greater than 1cm abdominal or pelvic lymph nodes are appreciated. OSSEOUS STRUCTURES: Metallic hardware from total left hip arthroplasty causes streak artifact limitin g evaluation of pelvic structures. Multilevel spurring and disc space narrowing along with facet arth ropathy causes multilevel spinal canal effacement in the mid to lower lumbar spine. OTHER: Mild to moderate calcified plaque of the aorta extends into branch vessels. IMPRESSION: No new or acute findings identified.
== END | disposition home or self-care (01) ==
LOC: RADCTMAIN 11:24
PROVIDERS: ATTEND Urology
DX: N20.0 Calculus of kidney (principal)
CPT/HCPCS: 74176

== ENCOUNTER → 2021-07-18 | Outpatient (CLI) | payer MEDICARE ==
[2021-07-18 18:27] LABS: Chol/HDL Ratio 2.68
== END | disposition home or self-care (01) ==
LOC: LABWHC1 09:33
PROVIDERS: ATTEND Internal Medicine Cardiovascular Disease
DX: E78.2 Mixed hyperlipidemia (principal)
CPT/HCPCS: 36415; 80061; 84450; 84460

== ENCOUNTER → 2022-01-08 | Outpatient (CLI) | payer MEDICARE ==
[2022-01-08 14:55] LABS: HDL Cholesterol 49.7 mg/dL (40.00-60.00); Triglycerides 44.6 mg/dL (0.00-149.00)
[2022-01-08 15:12] LABS: Chol/HDL Ratio 2.37 Ratio; LDL Cholesterol,Direct Reflex 59.3 mg/dL (0.00-129.00)
== END | disposition home or self-care (01) ==
LOC: LABWHC1 09:40
PROVIDERS: ATTEND Internal Medicine Cardiovascular Disease
DX: E78.2 Mixed hyperlipidemia (principal)
CPT/HCPCS: 36415; 80061; 83721; 84450; 84460

== ENCOUNTER 2022-03-27 17:00 | Inpatient (IN) | payer MEDICARE ==
[2022-03-27] MEDS ORDERED: SODIUM CHLORIDE 0.9% 1,000 ML IV STA (17:31)
--- NOTE | 2022-03-27 17:40 | ED ---
General Adult HPI - General Chief complaint: Fall Stated complaint: Weakness Time Seen by Provider: 03/27/22 17:12 Source: patient, EMS, RN notes reviewed Mode of arrival: EMS Limitations: no limitations - History of Present Illness Initial comments: Patient is a pleasant 81-year-old male presenting to the emergency Department with generalized weakness. Patient was using the restroom and follow-up. Patient was unable to get up on his own. No isolated area of weakness or confusion. Patient does have some mild abdominal discomfort however states that is chronic and not new for him. Patient has been feeling generally weak for the past several days. - Related Data Home Medications Medication Instructions Recorded Confirmed Atorvastatin [Lipitor] 80 mg PO HS 05/06/19 03/27/22 Furosemide [Lasix] 20 mg PO DAILY 09/15/20 03/27/22 Potassium Chloride ER [K-Dur 10] 10 meq PO BID 03/27/22 03/27/22 amLODIPine [Norvasc] 10 mg PO DAILY 03/27/22 03/27/22 lisinopriL [Zestril] 2.5 mg PO DAILY 03/27/22 03/27/22 Previous Rx's Medication Instructions Recorded Ferrous Sulfate [Iron (65 MG 325 mg PO DAILY #30 tab 05/15/20 Elemental)] Allergies Allergy/AdvReac Type Severity Reaction Status Date / Time No Known Allergies Allergy Verified 03/27/22 19:00 Review of Systems ROS Statement: Those systems with pertinent positive or pertinent negative responses have been documented in the HPI. ROS Other: All systems not noted in ROS Statement are negative. Constitutional: Denies: fever Eyes: Denies: eye pain ENT: Denies: ear pain Respiratory: Denies: cough, dyspnea Cardiovascular: Denies: chest pain Endocrine: Denies: fatigue Gastrointestinal: Reports: as per HPI, abdominal pain Genitourinary: Denies: dysuria Musculoskeletal: Denies: arthralgia Skin: Denies: rash Neurological: Reports: as per HPI Past Medical History Past Medical History: Coronary Artery Disease (CAD), Heart Failure, Deep Vein Thrombosis (DVT), Hyperlipidemia, Pneumonia, Prostate Disorder, Pulmonary Embolus (PE) Additional Past Medical History / Comment(s): recurrent UTIs,UTI with sepsis, bladder stones and kidney stones, chronic anemia, chronic low back pain, neuropathy R foot,discitis T 11 12 w/ iv abx History of Any Multi-Drug Resistant Organisms: ESBL Date of last positivie culture/infection: 10/20/20 MDRO Source:: ESBL URINE Past Surgical History: Appendectomy, Heart Catheterization, Heart Catheterization With Stent, Prostate Surgery Additional Past Surgical History / Comment(s): lithotripsy 12-08-19,Bladder stone removal 03/2018, TURP, colonoscopy, . Past Anesthesia/Blood Transfusion Reactions: No Reported Reaction Date of Last Stent Placement:: January 2019 Past Psychological History: No Psychological Hx Reported Smoking Status: Never smoker - Past Family History Father Family Medical History: No Reported History Additional Family Medical History / Comment(s): Father was healthy and lived to be 95 yrs old. Mother Family Medical History: No Reported History Additional Family Medical History / Comment(s): . General Exam Limitations: no limitations General appearance: alert, in no apparent distress Head exam: Present: normocephalic Eye exam: Present: normal appearance Neck exam: Present: normal inspection Respiratory exam: Present: normal lung sounds bilaterally Cardiovascular Exam: Present: regular rate, normal rhythm GI/Abdominal exam: Present: soft, tenderness (Minimal tenderness lower abdomen). Absent: distended Extremities exam: Present: normal inspection, full ROM. Absent: tenderness Neurological exam: Present: alert, CN II-XII intact. Absent: motor sensory deficit Expanded Neurological exam: Present: protecting the airway Speech: Present: fluid speech Motor strength exam: RUE: 5, LUE: 5, RLE: 5, LLE: 5 Eye Response: (4) open spontaneously Motor Response: (6) obeys commands Verbal Response: (5) oriented Psychiatric exam: Present: normal affect, normal mood Skin exam: Present: normal color Course Vital Signs 03/27/22 17:12 Temperature 99.4 F Pulse Rate 58 L Respiratory 18 Rate Blood Pressure 117/69 O2 Sat by Pulse 97 Oximetry EKG Findings - EKG Comments: EKG Findings:: Size pericardial 59. Premature supraventricular Flushing. CT 185. QRS 113. QT 472. QTC 472. Left axis. Incomplete right bundle-branch block. No acute ST change. Medical Decision Making - Medical Decision Making Patient reevaluated. Patient and family updated. Case discussed in detail with practitioner Anna, covering with Dr. Dubon, who will admit covering Dr. camara. He is aware of pending CBC. Heparin will not be started at this time secondary to concern of possible abnormalities however otherwise would likely be started. He is aware of this and will discuss later with nursing. CBC has arty clotted several times and lab is coming to collect sample. - Lab Data Result diagrams: 03/27/22 17:31 Lab Results 03/27/22 03/27/22 03/27/22 Range/Units 17:31 17:31 17:31 PT (9.0-12.0) sec INR (<1.2) APTT (22.0-30.0) sec Sodium 136 L (137-145) mmol/L Potassium 4.3 (3.5-5.1) mmol/L Chloride 104 (98-107) mmol/L Carbon Dioxide 23 (22-30) mmol/L Anion Gap 9 mmol/L BUN 35 H (9-20) mg/dL Creatinine 1.98 H (0.66-1.25) mg/dL Est GFR (CKD-EPI)AfAm 36 (>60 ml/min/1.73 sqM) Est GFR (CKD-EPI)NonAf 31 (>60 ml/min/1.73 sqM) Glucose 120 H (74-99) mg/dL Plasma Lactic Acid Jensen 1.5 (0.7-2.0) mmol/L Calcium 8.3 L (8.4-10.2) mg/dL Magnesium 2.0 (1.6-2.3) mg/dL Total Bilirubin 2.4 H (0.2-1.3) mg/dL AST 33 (17-59) U/L ALT 13 (4-49) U/L Alkaline Phosphatase 60 (38-126) U/L Creatine Kinase (55-170) U/L Troponin I 0.282 H* (0.000-0.034) ng/mL Total Protein 6.7 (6.3-8.2) g/dL Albumin 3.6 (3.5-5.0) g/dL TSH 1.430 (0.465-4.680) mIU/L Free T4 1.39 (0.78-2.19) ng/dL Free T3 pg/mL 2.6 L (2.8-5.3) pg/ml Urine Color Urine Appearance (Clear) Urine pH (5.0-8.0) Ur Specific [place] (1.001-1.035) Urine Protein (Negative) Urine Glucose (UA) (Negative) Urine Ketones (Negative) Urine Blood (Negative) Urine Nitrite (Negative) Urine Bilirubin (Negative) Urine Urobilinogen (<2.0) mg/dL Ur Leukocyte Esterase (Negative) Urine RBC (0-5) /hpf Urine WBC (0-5) /hpf Urine WBC Clumps (None) /hpf Urine Bacteria (None) /hpf Urine Mucus (None) /hpf 03/27/22 03/27/22 03/27/22 Range/Units 17:32 17:40 19:18 PT 11.7 (9.0-12.0) sec INR 1.1 (<1.2) APTT 15.9 L (22.0-30.0) sec Sodium (137-145) mmol/L Potassium (3.5-5.1) mmol/L Chloride (98-107) mmol/L Carbon Dioxide (22-30) mmol/L Anion Gap mmol/L BUN (9-20) mg/dL Creatinine (0.66-1.25) mg/dL Est GFR (CKD-EPI)AfAm (>60 ml/min/1.73 sqM) Est GFR (CKD-EPI)NonAf (>60 ml/min/1.73 sqM) Glucose (74-99) mg/dL Plasma Lactic Acid Jensen (0.7-2.0) mmol/L Calcium (8.4-10.2) mg/dL Magnesium (1.6-2.3) mg/dL Total Bilirubin (0.2-1.3) mg/dL AST (17-59) U/L ALT (4-49) U/L Alkaline Phosphatase (38-126) U/L Creatine Kinase 462 H (55-170) U/L Troponin I (0.000-0.034) ng/mL Total Protein (6.3-8.2) g/dL Albumin (3.5-5.0) g/dL TSH (0.465-4.680) mIU/L Free T4 (0.78-2.19) ng/dL Free T3 pg/mL (2.8-5.3) pg/ml Urine Color Yellow Urine Appearance Turbid (Clear) Urine pH 5.5 (5.0-8.0) Ur Specific [place] 1.015 (1.001-1.035) Urine Protein 1+ H (Negative) Urine Glucose (UA) Negative (Negative) Urine Ketones Negative (Negative) Urine Blood Moderate H (Negative) Urine Nitrite Positive (Negative) Urine Bilirubin Negative (Negative) Urine Urobilinogen <2.0 (<2.0) mg/dL Ur Leukocyte Esterase Large H (Negative) Urine RBC 36 H (0-5) /hpf Urine WBC >182 H (0-5) /hpf Urine WBC Clumps Many H (None) /hpf Urine Bacteria Many H (None) /hpf Urine Mucus Occasional H (None) /hpf - Radiology Data Radiology results: report reviewed (CT brain shows no acute process. Computed tomography scan abdomen and pelvis shows probable chronic cystitis.), image re viewed (Chest x-ray shows no acute process) Disposition Clinical Impression: Fall, Weakness, Urinary tract infection Disposition: ADMITTED IP TO THIS HOSP Is patient prescribed a controlled substance at d/c from ED?: No Referrals: Trino Camara MD [Primary Care Provider] - 1-2 days Time of Disposition: 20:31
[2022-03-27 17:51] LABS: Albumin 3.6 g/dL (3.5-5.0); Calcium 8.3 mg/dL (8.4-10.2); Potassium 4.3 mmol/L (3.5-5.1); Total Bilirubin 2.4 mg/dL (0.2-1.3); Total Protein 6.7 g/dL (6.3-8.2)
--- NOTE | 2022-03-27 18:07 | XR ---
EXAMINATION TYPE: XR chest 2V DATE OF EXAM: 03/27/2022 COMPARISON: NONE HISTORY: Short of breath TECHNIQUE: 2 views FINDINGS: Heart size is normal. There are no hilar masses. Thoracic aorta is atheromatous. There is s light blunting left costophrenic angle. The bony thorax is intact. IMPRESSION: There is minimal pleural reaction left lung base without change. No heart failure. Normal heart.
[2022-03-27 18:08] LABS: T4, Free (Free Thyroxine) 1.39 ng/dL (0.78-2.19)
--- NOTE | 2022-03-27 19:08 | CT ---
EXAMINATION TYPE: CT brain wo con DATE OF EXAM: 03/27/2022 COMPARISON: 04/03/2013 HISTORY: Weakness CT DLP: 1119.4 mGycm Automated exposure control for dose reduction was used. There is some cerebral cortical atrophy. There is no mass effect nor midline shift. There is no sign of intracranial hemorrhage. Calvarium is intact. Skull base is intact. IMPRESSION: Mild atrophy. No acute intracranial abnormality. No change.
--- NOTE | 2022-03-27 19:35 | CT ---
EXAMINATION TYPE: CT abdomen pelvis wo con DATE OF EXAM: 03/27/2022 COMPARISON: 11/28/2020 HISTORY: Abd pain CT DLP: 1237.4 mGycm Automated exposure control for dose reduction was used. Images obtained from the diaphragm to the floor the pelvis with no contrast. Heart is enlarged. There is coronary artery calcification. There is some mild atelectasis at the lung bases. No pleural effusion. Spleen is intact. There are multiple cystic masses in the liver that joseph sure up to 6.5 cm. Stomach is intact. There is no pancreatic mass. Gallbladder appears normal. There is no adrenal mass. Kidneys have normal size. No hydronephrosis. Ureters are not dilated. There is a 3 cm cyst right kidney. Bladder distends smoothly. There is slight thickening of the posterior and right lateral wall of the urinary bladder. Detail limited by metal artifact from the hip prosthes is. There is no free fluid in the pelvis. No mesenteric edema. No ascites or free air. No bowel obstr uction. Appendix not seen. No sign of thickened appendix. The lumbar vertebrae have normal alignment. There is degenerative disc space narrowing throughout the lumbar spine with spur formation. There is no compression fracture. Bony pelvis is intact. IMPRESSION: Multiple hepatic cysts without change. Right renal cortical cyst without change. Patchy atelectasis a t the lung bases which is increased compared to old exam. There are some chronic urinary bladder wall thickening similar to the old exam. This could relate to some chronic cystitis.
[2022-03-27 19:49] LABS: INR 1.1 (<1.2); Prothrombin Time 11.7 sec (9.0-12.0)
[2022-03-27 19:53] LABS: Partial Thromboplastin Time 15.9 sec (22.0-30.0)
[2022-03-27 20:08] LABS: Appearance,Urine Turbid (Clear); Bacteria,Urine Many /hpf; Bilirubin,Urine Negative (Negative); Blood,Urine Moderate (Negative); Color,Urine Yellow; Glucose,Urine (UA) Negative (Negative); Ketones,Urine Negative (Negative); Leukocyte Esterase,Urine Large (Negative); Mucus,Urine Occasional /hpf; Nitrite,Urine Positive (Negative); PH, Urine 5.5 (5.0-8.0); Protein,Urine 1+ (Negative); RBC,Urine 36 /hpf (0-5); Specific Gravity,Urine 1.015 (1.001-1.035); Urobilinogen,Urine <2.0 mg/dL (<2.0); WBC,Urine >182 /hpf (0-5)
[2022-03-27] MEDS ORDERED: ACETAMINOPHEN TAB 325 MG TAB PO PRN (20:31)
[2022-03-27] MEDS ORDERED: NALOXONE 0.4 MG/ML 1 ML VIAL IV PRN (20:31)
[2022-03-27 21:21] LABS: Basophils % (A) 0 %; Eosinophils % (A) 0 %; HCT 34.6 % (39.0-53.0); HGB 11.3 gm/dL (13.0-17.5); Lymphocytes # (A) 0.9 k/uL (1.0-4.8); Lymphocytes % (A) 7 %; MCH 31.2 pg (25.0-35.0); MCHC 32.7 g/dL (31.0-37.0); MCV 95.5 fL (80.0-100.0); Mean Platelet Volume 8.1; Monocytes # (A) 1.1 k/uL (0-1.0); Monocytes % (A) 8 %; Neutrophils # (A) 10.4 k/uL (1.3-7.7); Neutrophils % (A) 82 %; Platelet Count 171 k/uL (150-450); RBC 3.62 m/uL (4.30-5.90); RDW 14.1 % (11.5-15.5); WBC 12.7 k/uL (3.8-10.6)
[2022-03-27 22:14] LABS: Ovalocytes Present; Poikilocytosis (M) Present
[2022-03-27 22:18] LABS: INR 1.1 (<1.2)
[2022-03-27] MEDS ORDERED: HEPARIN SODIUM 1,000 UN/ML (10ML VL) IV ONE (22:33)
[2022-03-27] MEDS ORDERED: HEPARIN SODIUM 1,000 UN/ML (10ML VL) IV PRN (22:33)
[2022-03-27] MEDS ORDERED: FUROSEMIDE 10 MG/ML 4 ML VIAL IV STA (22:34)
[2022-03-27] MEDS ORDERED: MELATONIN 5 MG TABLET PO PRN (22:35)
[2022-03-27] MEDS ORDERED: HEPARIN SOD,PORK IN 0.45% NACL 25,000 UNIT in 0.45% NACL 1 250ML.BAG IV SCH (22:45)
[2022-03-27] MEDS: ATORVASTATIN 80 MG TAB PO SCH (22:58)
[2022-03-28 05:11] LABS: Basophils % (A) 0 %; Eosinophils % (A) 0 %; HCT 35.4 % (39.0-53.0); HGB 11.7 gm/dL (13.0-17.5); Lymphocytes # (A) 1.3 k/uL (1.0-4.8); Lymphocytes % (A) 11 %; MCH 31.3 pg (25.0-35.0); MCHC 32.9 g/dL (31.0-37.0); Mean Platelet Volume 8.2; Monocytes # (A) 1.1 k/uL (0-1.0); Monocytes % (A) 9 %; Neutrophils # (A) 8.9 k/uL (1.3-7.7); Neutrophils % (A) 75 %; Platelet Count 179 k/uL (150-450); RBC 3.73 m/uL (4.30-5.90); RDW 14.8 % (11.5-15.5); WBC 11.9 k/uL (3.8-10.6)
[2022-03-28 05:19] LABS: INR 1.1 (<1.2); Partial Thromboplastin Time 43.9 sec (22.0-30.0); Prothrombin Time 12.2 sec (9.0-12.0)
[2022-03-28 05:51] LABS: Albumin 3.5 g/dL (3.5-5.0); Calcium 8.2 mg/dL (8.4-10.2); Magnesium 2.2 mg/dL (1.6-2.3); Potassium 4.3 mmol/L (3.5-5.1); Total Protein 6.7 g/dL (6.3-8.2)
[2022-03-28] MEDS: FUROSEMIDE 20 MG TAB PO SCH (08:59)
[2022-03-28] MEDS: FAMOTIDINE 20 MG/2 ML VIAL IV SCH ×2 (08:59→21:00)
[2022-03-28] MEDS: FERROUS SULFATE 325 MG TAB PO SCH (08:59)
[2022-03-28] MEDS ORDERED: amLODIPine 10 MG TAB PO SCH (09:00)
--- NOTE | 2022-03-28 09:27 | P.HPIM ---
History of Present Illness This is a pleasant 81 years old male with past medical history of hypertension, hyperlipidemia, Coronary Artery Disease (status post stent, Heart Failure, Deep Vein Thrombosis not on anticoagulation, Prostate Disorder, Pulmonary Embolus on anticoagulation. History with UTI secondary to ESBL Mo, history of bladder stones and kidney stones, status post lithotripsy, chronic anemia, chronic low back pain, neuropathy R foot,discitis Patient presents because she fell down between the toilet in the wall without losing consciousness or feeling dizzy. Patient states that he was trying to sit on the commode when he missed. He denies head trauma. Complaining of from some shoulder pain. No headache or weakness or numbness. He has some dry cough. In some dyspnea for the last 2 days but no chest pain. Patient states that he has diarrhea for 3 days but no abdominal pain, no vomiting. He denies dysuria but he complains from some suprapubic pain with increased frequency of urination. He has chronic back pain Patient has history of 3 stents before. 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 Alejo Vitals are stable, mildly bradycardic but not febrile. Labs showing mild leukocytosis of 12.7. Hemoglobin 11.3, platelets normal. INR normal Creatinine is elevated at 1.9 which is baseline of 1.3-2.0 Liver enzymes not elevated. Elevated troponin 0.28 and 0.327 TSH is normal at 1.4 as well as free T4 at 1.3. Urinalysis is suspicious for infection EKG showing sinus bradycardia at [address]-T changes CT of the abdomen and pelvis without contrast showing multiple hepatic cysts without change. Right renal cortical cyst without change. Patchy atelectasis of the lung bases. There are some chronic urinary bladder wall thickening similar to old exam. This could be related to chronic cholecystitis. Chest x-ray: No acute process CT of the brain negative for acute process showing cerebral atrophy. Emergency room patient started on ceftriaxone and heparin drip. Normal saline at 130 mL/h Cardiology team consulted. Review of Systems CONSTITUTIONAL: No fever, no malaise, no fatigue. HEENT: No recent visual problems or hearing problems. Denied any sore throat. CARDIOVASCULAR: No orthopnea, PND, no palpitations, no syncope. PULMONARY: No shortness of breath, no cough, no hemoptysis. GASTROINTESTINAL: No diarrhea, no nausea, no vomiting, no abdominal pain. Normoactive bowel sounds. NEUROLOGICAL: No headaches, no weakness, no numbness. HEMATOLOGICAL: Denies any bleeding or petechiae. GENITOURINARY: Denies any burning micturition, frequency, or urgency. MUSCULOSKELETAL/RHEUMATOLOGICAL: Denies any joint pain, swelling, or any muscle pain. ENDOCRINE: Denies any polyuria or polydipsia. Past Medical History Past Medical History: Coronary Artery Disease (CAD), Heart Failure, Deep Vein Thrombosis (DVT), Hyperlipidemia, Pneumonia, Prostate Disorder, Pulmonary Embolus (PE) Additional Past Medical History / Comment(s): recurrent UTIs,UTI with sepsis, bladder stones and kidney stones, chronic anemia, chronic low back pain, neuropathy R foot,discitis T 11 12 w/ iv abx History of Any Multi-Drug Resistant Organisms: ESBL Date of last positivie culture/infection: 10/20/20 MDRO Source:: ESBL URINE Past Surgical History: Appendectomy, Heart Catheterization, Heart Catheterization With Stent, Prostate Surgery Additional Past Surgical History / Comment(s): lithotripsy 12-08-19,Bladder stone removal 03/2018, TURP, colonoscopy, . Past Anesthesia/Blood Transfusion Reactions: No Reported Reaction Date of Last Stent Placement:: January 2019 Past Psychological History: No Psychological Hx Reported Additional Psychological History / Comment(s): Pt resides with his spouse. He uses no assistive device but they do own a cane and a walker. 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 Smoking Status: Never smoker Past Alcohol Use History: None Reported Past Drug Use History: None Reported - Past Family History Father Family Medical History: No Reported History Additional Family Medical History / Comment(s): Father was healthy and lived to be 95 yrs old. Mother Family Medical History: No Reported History Additional Family Medical History / Comment(s): . Medications and Allergies Home Medications Medication Instructions Recorded Confirmed Type Atorvastatin [Lipitor] 80 mg PO HS 05/06/19 03/27/22 History Ferrous Sulfate [Iron (65 MG 325 mg PO DAILY #30 tab 05/15/20 03/27/22 Rx Elemental)] Furosemide [Lasix] 20 mg PO DAILY 09/15/20 03/27/22 History Potassium Chloride ER [K-Dur 10] 10 meq PO BID 03/27/22 03/27/22 History amLODIPine [Norvasc] 10 mg PO DAILY 03/27/22 03/27/22 History lisinopriL [Zestril] 2.5 mg PO DAILY 03/27/22 03/27/22 History Allergies Allergy/AdvReac Type Severity Reaction Status Date / Time No Known Allergies Allergy Verified 03/27/22 19:00 Physical Exam Vitals: Vital Signs Temp Pulse Pulse Resp BP BP BP 03/28/22 04:17 105/56 03/28/22 04:15 98.2 F 46 L 24 136/65 03/27/22 23:05 98.1 F 51 L 24 99/60 03/27/22 21:30 98 F 54 L 28 H 129/69 03/27/22 21:07 97.7 F 51 L 18 115/71 03/27/22 20:31 53 L 18 121/62 03/27/22 17:12 99.4 F 58 L 18 117/69 BP BP Pulse Ox 03/28/22 04:17 122/56 130/69 03/28/22 04:15 98 03/27/22 23:05 96 03/27/22 21:30 97 03/27/22 21:07 99 03/27/22 20:31 99 03/27/22 17:12 97 Intake and Output 03/27/22 03/27/22 03/28/22 14:59 22:59 06:59 Intake Total 65.69 Output Total 0 950 Balance 0 -884.31 Intake: Intake, IV Titration 65.69 Amount Heparin Sod,Pork in 0.45% 65.69 NaCl 25,000 unit In 0.45 % NaCl 1 250ml.bag @ 10.6 UNITS/KG/HR 9.953 mls/hr IV .Q24H [facility] Rx#: [id number] Output: Urine 0 950 Other: Voiding Method Toilet Toilet Urinal Urinal Diaper Diaper # Voids 0 Weight 93.894 kg 93 kg -GENERAL: The patient is alert and oriented x3, not in any acute distress. Generalized weakness HEENT: Pupils are round and equally reacting to light. EOMI. No scleral icterus. No conjunctival pallor. Normocephalic, atraumatic. No pharyngeal erythema. No thyromegaly. CARDIOVASCULAR: S1 and S2 present. No murmurs, rubs, or gallops. PULMONARY: Chest is clear to auscultation, no wheezing or crackles. -ABDOMEN: Soft, lower abd tenderness, no rebound tenderness. No guarding, nondistended, normoactive bowel sounds. No palpable organomegaly. MUSCULOSKELETAL: No joint swelling or deformity. EXTREMITIES: No cyanosis, clubbing, or pedal edema. NEUROLOGICAL: Gross neurological examination did not reveal any focal deficits. SKIN: No rashes. No petechiae Results CBC & Chem 7: 03/28/22 04:47 03/28/22 04:47 Labs: Abnormal Lab Results - Last 24 Hours (Table) 03/27/22 03/27/22 03/27/22 Range/Units 17:31 17:31 17:32 WBC (3.8-10.6) k/uL RBC (4.30-5.90) m/uL Hgb (13.0-17.5) gm/dL Hct (39.0-53.0) % Neutrophils # (1.3-7.7) k/uL Lymphocytes # (1.0-4.8) k/uL Monocytes # (0-1.0) k/uL PT (9.0-12.0) sec APTT (22.0-30.0) sec Sodium 136 L (137-145) mmol/L BUN 35 H (9-20) mg/dL Creatinine 1.98 H (0.66-1.25) mg/dL Glucose 120 H (74-99) mg/dL Calcium 8.3 L (8.4-10.2) mg/dL Total Bilirubin 2.4 H (0.2-1.3) mg/dL Creatine Kinase (55-170) U/L Troponin I 0.282 H* (0.000-0.034) ng/mL Free T3 pg/mL 2.6 L (2.8-5.3) pg/ml Urine Protein 1+ H (Negative) Urine Blood Moderate H (Negative) Ur Leukocyte Esterase Large H (Negative) Urine RBC 36 H (0-5) /hpf Urine WBC >182 H (0-5) /hpf Urine WBC Clumps Many H (None) /hpf Urine Bacteria Many H (None) /hpf Urine Mucus Occasional H (None) /hpf 03/27/22 03/27/22 03/27/22 Range/Units 17:40 19:18 21:02 WBC 12.7 H (3.8-10.6) k/uL RBC 3.62 L (4.30-5.90) m/uL Hgb 11.3 L (13.0-17.5) gm/dL Hct 34.6 L (39.0-53.0) % Neutrophils # 10.4 H (1.3-7.7) k/uL Lymphocytes # 0.9 L (1.0-4.8) k/uL Monocytes # 1.1 H (0-1.0) k/uL PT (9.0-12.0) sec APTT 15.9 L (22.0-30.0) sec Sodium (137-145) mmol/L BUN (9-20) mg/dL Creatinine (0.66-1.25) mg/dL Glucose (74-99) mg/dL Calcium (8.4-10.2) mg/dL Total Bilirubin (0.2-1.3) mg/dL Creatine Kinase 462 H (55-170) U/L Troponin I (0.000-0.034) ng/mL Free T3 pg/mL (2.8-5.3) pg/ml Urine Protein (Negative) Urine Blood (Negative) Ur Leukocyte Esterase (Negative) Urine RBC (0-5) /hpf Urine WBC (0-5) /hpf Urine WBC Clumps (None) /hpf Urine Bacteria (None) /hpf Urine Mucus (None) /hpf 03/27/22 03/28/22 03/28/22 Range/Units 21:02 00:53 04:47 WBC 11.9 H (3.8-10.6) k/uL RBC 3.73 L (4.30-5.90) m/uL Hgb 11.7 L (13.0-17.5) gm/dL Hct 35.4 L (39.0-53.0) % Neutrophils # 8.9 H (1.3-7.7) k/uL Lymphocytes # (1.0-4.8) k/uL Monocytes # 1.1 H (0-1.0) k/uL PT (9.0-12.0) sec APTT (22.0-30.0) sec Sodium (137-145) mmol/L BUN (9-20) mg/dL Creatinine (0.66-1.25) mg/dL Glucose (74-99) mg/dL Calcium (8.4-10.2) mg/dL Total Bilirubin (0.2-1.3) mg/dL Creatine Kinase (55-170) U/L Troponin I 0.327 H* 0.325 H* (0.000-0.034) ng/mL Free T3 pg/mL (2.8-5.3) pg/ml Urine Protein (Negative) Urine Blood (Negative) Ur Leukocyte Esterase (Negative) Urine RBC (0-5) /hpf Urine WBC (0-5) /hpf Urine WBC Clumps (None) /hpf Urine Bacteria (None) /hpf Urine Mucus (None) /hpf 03/28/22 03/28/22 Range/Units 04:47 04:47 WBC (3.8-10.6) k/uL RBC (4.30-5.90) m/uL Hgb (13.0-17.5) gm/dL Hct (39.0-53.0) % Neutrophils # (1.3-7.7) k/uL Lymphocytes # (1.0-4.8) k/uL Monocytes # (0-1.0) k/uL PT 12.2 H (9.0-12.0) sec APTT 43.9 H (22.0-30.0) sec Sodium (137-145) mmol/L BUN 35 H (9-20) mg/dL Creatinine 1.84 H (0.66-1.25) mg/dL Glucose 116 H (74-99) mg/dL Calcium 8.2 L (8.4-10.2) mg/dL Total Bilirubin 2.0 H (0.2-1.3) mg/dL Creatine Kinase (55-170) U/L Troponin I (0.000-0.034) ng/mL Free T3 pg/mL (2.8-5.3) pg/ml Urine Protein (Negative) Urine Blood (Negative) Ur Leukocyte Esterase (Negative) Urine RBC (0-5) /hpf Urine WBC (0-5) /hpf Urine WBC Clumps (None) /hpf Urine Bacteria (None) /hpf Urine Mucus (None) /hpf Microbiology - Last 24 Hours (Table) 03/27/22 17:32 Urine Culture - Preliminary Urine,Voided Thrombosis Risk Factor Assmnt - Choose All That Apply Each Risk Factor Represents 3 Points: Age 75 years or older, History of DVT/PE Thrombosis Risk Factor Assessment Total Risk Factor Score: 6 Thrombosis Risk Factor Assessment Level: High Risk Assessment and Plan Assessment: Acute urinary tract infection Elevated troponin, most likely secondary to kidney disease. Rule out cardiac disease. reactive gastroenteritis fall secondary to above Chronic kidney disease, stage III Hypertension Hyperlipidemia History of coronary artery disease status post PCI History of DVT/PE, not on anticoagulation History of kidney stone status post lithotripsy Chronic back pain Plan: This is a pleasant 81 years old male who presents with UTI diarrhea, dehydration and fall. Continue with antibiotic. Currently with ceftriaxone Follow-up urine culture Continue with normal saline Cardiology team consult Labs and medication were reviewed.. Continue same treatment. Continue with symptomatic treatment. Resume home medication. Monitor lytes and vitals. DVT and GI prophylaxis. Further recommendations as per clinical course of the patient DVT prophylaxis: Subcutaneous heparin GI Prophylaxis: Pepcid PT/OT: Pending Prognosis is guarded
[2022-03-28] MEDS: SODIUM CHLORIDE 0.9% 1,000 ML IV SCH (09:49)
--- NOTE | 2022-03-28 09:59 | XR ---
Left shoulder HISTORY: Trauma and pain 2 views of left shoulder There is somewhat inferior displacement of the distal clavicle in relation to the acromion, there is arthropathy change. Left lung apex as visualized is normal. Posterior left seventh rib shows cortical thickening which may be due to healed left rib fracture, correlate for remote history of trauma. Ali gnment and bone mineralization are maintained. IMPRESSION: No evident fracture of the left shoulder, correlate to exclude acromioclavicular separati on, there is acromioclavicular arthropathy change.
--- NOTE | 2022-03-28 11:38 | P.CRDCN ---
History of Present Illness Consult date: 03/28/22 History of present illness: HISTORY OF PRESENT ILLNESS: This is a 81-year-old male with a past medical history significant for coronary artery disease with previous stenting, hypertension, and hyperlipidemia. Patient follows in the office with Dr. Alejo. We have been asked to see the patient in consultation for abnormal troponins. Patient examined at the bedside. Patient states he came to the hospital with a chief complaint of generalized weakness. Patient reports that he was at home and fell off the toilet. He reports having diarrhea at home for a few days. He denies any chest pain or pressure. Reports mild SOB. Reports left shoulder discomfort secondary to his fall. He does report falling 2-3 times over the past week. No syncopal episodes. He was up ambulating this morning with PT in the hallways. * EKG reveals sinus mechanism with no signs of acute ischemia * Chest xray minimal pleural reaction left lung base without change. No heart failure. Normal heart. * Laboratory data: WBC 11.9. Hemoglobin 11.7. Platelet Count 179. Sodium 138. Potassium 4.3. BUN 35. Creatinine 1.84. Troponin 0.282. 0.327. 0.325. * Current home cardiac medications include lisinopril 2.5 mg daily, Norvasc 10 mg daily, Lasix 20 mg daily, and Lipitor 80 mg at night * Patient underwent Lexiscan stress test in January 2020 which revealed fixed inferior wall defect with no acute reversible ischemia * Most recent echocardiogram obtained in July 2021 revealed ejection fraction 55% with [id number] MR and mild TR * Cardiac catheterization history: May 2020 with patent stent within the LAD with a moderate area of stenosis distal to the stent which has remained unchanged over the last 2 years. REVIEW OF SYSTEMS: At the time of my exam: CONSTITUTIONAL: Denies fever or chills. HEENT: Denies blurred vision, vision changes, or eye pain. Denies hemoptysis CARDIOVASCULAR: Denies chest pain. Denies orthopnea. Denies PND. Denies palpitations RESPIRATORY: Denies shortness of breath. GASTROINTESTINAL: Denies abdominal pain. Denies nausea or vomiting. HEMATOLOGIC: Denies bleeding disorders. GENITOURINARY: Denies any blood in urine. SKIN: Denies pruitis. Denies rash. PHYSICAL EXAM: VITAL SIGNS: Reviewed. GENERAL: Well-developed in no acute distress. HEENT: Head is normocephalic. Pupils are equal, round. Sclerae anicteric. Mucous membranes of the mouth are moist. Neck supple. No JVD or thyromegaly LUNGS: Respirations even and unlabored. Lungs essentially clear to auscultation bilaterally. HEART: Regular rate and rhythm. S1 and S2 heard. ABDOMEN: Soft. Nondistended. Nontender. EXTREMITIES: Normal range of motion. No clubbing or cyanosis. Peripheral pulses intact. No lower extremity edema NEUROLOGIC: Awake and alert. Oriented x 3. ASSESSMENT: Generalized weakness S/P Fall Leukocytosis Acute kidney injury Abnormal troponins, likely secondary to leukocytosis and acute kidney injury, not consistent with acute coronary syndrome Coronary artery disease with previous stenting Hypertension Hyperlipidemia History of sinus bradycardia, not on beta blockers on an outpatient basis PLAN: Acute coronary and has been ruled out Discontinue IV heparin Resume home cardiac medications Obtain 2-D echo to assess cardiac structure and function Further recommendations pending patient's course Nurse practitioner note has been reviewed by physician. Signing provider agrees with the documented findings, assessment, and plan of care. Past Medical History Past Medical History: Coronary Artery Disease (CAD), Heart Failure, Deep Vein Thrombosis (DVT), Hyperlipidemia, Pneumonia, Prostate Disorder, Pulmonary Embolus (PE) Additional Past Medical History / Comment(s): recurrent UTIs,UTI with sepsis, bladder stones and kidney stones, chronic anemia, chronic low back pain, neuropathy R foot,discitis T 11 12 w/ iv abx History of Any Multi-Drug Resistant Organisms: ESBL Date of last positivie culture/infection: 10/20/20 MDRO Source:: ESBL URINE Past Surgical History: Appendectomy, Heart Catheterization, Heart Catheterization With Stent, Prostate Surgery Additional Past Surgical History / Comment(s): lithotripsy 12-08-19,Bladder stone removal 03/2018, TURP, colonoscopy, . Past Anesthesia/Blood Transfusion Reactions: No Reported Reaction Date of Last Stent Placement:: January 2019 Past Psychological History: No Psychological Hx Reported Additional Psychological History / Comment(s): Pt resides with his spouse. He uses no assistive device but they do own a cane and a walker. 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 Smoking Status: Never smoker Past Alcohol Use History: None Reported Past Drug Use History: None Reported - Past Family History Father Family Medical History: No Reported History Additional Family Medical History / Comment(s): Father was healthy and lived to be 95 yrs old. Mother Family Medical History: No Reported History Additional Family Medical History / Comment(s): . Medications and Allergies Home Medications Medication Instructions Recorded Confirmed Type Atorvastatin [Lipitor] 80 mg PO HS 05/06/19 03/27/22 History Ferrous Sulfate [Iron (65 MG 325 mg PO DAILY #30 tab 05/15/20 03/27/22 Rx Elemental)] Furosemide [Lasix] 20 mg PO DAILY 09/15/20 03/27/22 History Potassium Chloride ER [K-Dur 10] 10 meq PO BID 03/27/22 03/27/22 History amLODIPine [Norvasc] 10 mg PO DAILY 03/27/22 03/27/22 History lisinopriL [Zestril] 2.5 mg PO DAILY 03/27/22 03/27/22 History Allergies Allergy/AdvReac Type Severity Reaction Status Date / Time No Known Allergies Allergy Verified 03/27/22 19:00 Physical Exam Vitals: Vital Signs Temp Pulse Pulse Resp BP BP BP 03/28/22 07:55 98.1 F 47 L 20 128/67 03/28/22 04:17 105/56 03/28/22 04:15 98.2 F 46 L 24 136/65 03/27/22 23:05 98.1 F 51 L 24 99/60 03/27/22 21:30 98 F 54 L 28 H 129/69 03/27/22 21:07 97.7 F 51 L 18 115/71 03/27/22 20:31 53 L 18 121/62 03/27/22 17:12 99.4 F 58 L 18 117/69 BP BP Pulse Ox 03/28/22 07:55 97 03/28/22 04:17 122/56 130/69 03/28/22 04:15 98 03/27/22 23:05 96 03/27/22 21:30 97 03/27/22 21:07 99 03/27/22 20:31 99 03/27/22 17:12 97 Intake and Output 03/27/22 03/28/22 03/28/22 22:59 06:59 14:59 Intake Total 65.69 Output Total 0 950 Balance 0 -884.31 Intake: Intake, IV Titration 65.69 Amount Heparin Sod,Pork in 0.45% 65.69 NaCl 25,000 unit In 0.45 % NaCl 1 250ml.bag @ 10.6 UNITS/KG/HR 9.953 mls/hr IV .Q24H [facility] Rx#: [id number] Output: Urine 0 950 Other: Voiding Method Toilet Toilet Toilet Urinal Urinal Urinal Diaper Diaper Diaper # Voids 0 Weight 93.894 kg 93 kg Results 03/28/22 04:47 03/28/22 04:47 Cardiac Enzymes 03/27/22 03/27/22 03/27/22 Range/Units 17:31 17:31 21:02 AST 33 (17-59) U/L Troponin I 0.282 H* 0.327 H* (0.000-0.034) ng/mL 03/28/22 03/28/22 Range/Units 00:53 04:47 AST 55 (17-59) U/L Troponin I 0.325 H* (0.000-0.034) ng/mL Coagulation 03/27/22 03/27/22 03/28/22 Range/Units 19:18 22:08 04:47 PT 11.7 12.0 12.2 H (9.0-12.0) sec APTT 15.9 L 27.0 43.9 H (22.0-30.0) sec CBC 03/27/22 03/28/22 Range/Units 21:02 04:47 WBC 12.7 H 11.9 H (3.8-10.6) k/uL RBC 3.62 L 3.73 L (4.30-5.90) m/uL Hgb 11.3 L 11.7 L (13.0-17.5) gm/dL Hct 34.6 L 35.4 L (39.0-53.0) % Plt Count 171 179 (150-450) k/uL Comprehensive Metabolic Panel 03/27/22 03/28/22 Range/Units 17:31 04:47 Sodium 136 L 138 (137-145) mmol/L Potassium 4.3 4.3 (3.5-5.1) mmol/L Chloride 104 104 (98-107) mmol/L Carbon Dioxide 23 27 (22-30) mmol/L BUN 35 H 35 H (9-20) mg/dL Creatinine 1.98 H 1.84 H (0.66-1.25) mg/dL Glucose 120 H 116 H (74-99) mg/dL Calcium 8.3 L 8.2 L (8.4-10.2) mg/dL AST 33 55 (17-59) U/L ALT 13 16 (4-49) U/L Alkaline Phosphatase 60 67 (38-126) U/L Total Protein 6.7 6.7 (6.3-8.2) g/dL Albumin 3.6 3.5 (3.5-5.0) g/dL Current Medications Generic Name Dose Route Start Last Admin Trade Name Freq PRN Reason Stop Dose Admin Acetaminophen 650 mg 03/27/22 20:31 Acetaminophen Tab 325 Mg Tab PO Q6HR PRN Mild Pain or Fever > 100.5 Hydrocodone Bitart/Acetaminophen 1 each 03/27/22 22:36 Hydrocodone/Apap 5-325mg 1 Each Tab PO Q6HR PRN Pain Atorvastatin Calcium 80 mg 03/27/22 22:45 03/27/22 22:58 Atorvastatin 80 Mg Tab PO 80 mg HS [facility] Administration Famotidine 10 mg 03/28/22 09:00 03/28/22 08:59 Famotidine 20 Mg/2 Ml Vial IV 10 mg Q12HR [facility] Administration Ferrous Sulfate 325 mg 03/28/22 09:00 03/28/22 08:59 Ferrous Sulfate 325 Mg Tab PO 325 mg DAILY [facility] Administration Furosemide 20 mg 03/28/22 09:00 03/28/22 08:59 Furosemide 20 Mg Tab PO 20 mg DAILY [facility] Administration Heparin Sodium (Porcine) 0 unit 03/27/22 22:33 Heparin Sodium 1,000 Un/Ml (10ml Vl) IV PER PROTOCOL PRN Low PTT Protocol Heparin Sodium (Porcine) 5,000 unit 03/28/22 21:00 Heparin Sodium,Porcine/Pf 5,000 Unit/0.5 Ml Syringe SQ Q12HR [facility] Ceftriaxone Sodium 1 gm/ 50 mls @ 100 mls/hr 03/27/22 21:00 03/28/22 08:59 Sodium Chloride IVPB 100 mls/hr Q12HR [facility] Administration Protocol Sodium Chloride 1,000 mls @ 75 mls/hr 03/28/22 09:30 03/28/22 09:49 Saline 0.9% IV 03/29/22 09:31 75 mls/hr .[id number] [facility] Administration Lisinopril 2.5 mg 03/28/22 09:00 03/28/22 08:59 Lisinopril 2.5 Mg Tab PO 2.5 mg DAILY [facility] Administration Melatonin 5 mg 03/27/22 22:35 Melatonin 5 Mg Tablet PO HS PRN Insomnia Naloxone HCl 0.2 mg 03/27/22 20:31 Naloxone 0.4 Mg/Ml 1 Ml Vial IV Q2M PRN Opioid Reversal Intake and Output 03/27/22 03/28/22 03/28/22 22:59 06:59 14:59 Intake Total 65.69 Output Total 0 950 Balance 0 -884.31 Intake: Intake, IV Titration 65.69 Amount Heparin Sod,Pork in 0.45% 65.69 NaCl 25,000 unit In 0.45 % NaCl 1 250ml.bag @ 10.6 UNITS/KG/HR 9.953 mls/hr IV .Q24H [facility] Rx#: [id number] Output: Urine 0 950 Other: Voiding Method Toilet Toilet Toilet Urinal Urinal Urinal Diaper Diaper Diaper # Voids 0 Weight 93.894 kg 93 kg 03/28/22 04:47 03/28/22 04:47
--- NOTE | 2022-03-28 11:38 | CA ---
Transthoracic Echo Report Name: Rafiq Cook Age: 81 Gender: M : 1940 Exam Date: 03/28/2022 09:45 Exam Location: [facility] Ht (in): 68 Wt (lb): 205 Ordering Physician: Michelle Salgado Attending/Referring Phys: [id number], Damian Tester Regulator Talita Gatica RDCS Procedure CPT: Indications: LV function Cardiac Hx: Technical Quality: Fair Contrast 1: Total Dose (mL): Contrast 2: Total Dose (mL): MEASUREMENTS (Male / Female) Normal Values 2D ECHO LV Diastolic Diameter PLAX 4.6 cm 4.2 - 5.9 / 3.9 - 5.3 cm LV Systolic Diameter PLAX 3.2 cm IVS Diastolic Thickness 1.9 cm 0.6 - 1.0 / 0.6 - 0.9 cm LVPW Diastolic Thickness 2.1 cm 0.6 - 1.0 / 0.6 - 0.9 cm LV Relative Wall Thickness 0.9 RV Internal Dim ED PLAX 3.9 cm LA Volume 88.8 cm 18 - 58 / 22 - 52 cm M-MODE Aortic Root Diameter MM 4.0 cm LA Systolic Diameter MM 5.4 cm LA Ao Ratio MM 1.4 AV Cusp Separation MM 2.5 cm DOPPLER AV Peak Velocity 148.2 cm/s AV Peak Gradient 8.8 mmHg AI Peak Velocity 366.3 cm/s AI Peak Gradient 53.7 mmHg AI Pressure Half Time 685.1 ms MV Area PHT 4.0 cm Mitral E Point Velocity 84.4 cm/s Mitral A Point Velocity 51.3 cm/s Mitral E to A Ratio 1.6 MV Deceleration Time 190.3 ms TR Peak Velocity 303.9 cm/s TR Peak Gradient 36.9 mmHg Right Ventricular Systolic Press 41.6 mmHg FINDINGS Left Ventricle Severely increased left ventricular wall thickness. Left ventricular ejection fraction is estimated at 50-55 %. Right Ventricle Mild right ventricular dilatation. Mild to Moderate pulmonary hypertension. Right Atrium Normal right atrial size. Left Atrium Severely increased left atrial volume. Mildly increased left atrial area. Mitral Valve Moderate mitral regurgitation Aortic Valve Mild aortic regurgitation. Tricuspid Valve [id number] tricuspid regurgitation. Pulmonic Valve Structurally normal pulmonic valve. Pericardium No pericardial effusion. Fat pad noted. Aorta Aortic dilatation. 3.9 cm CONCLUSIONS Normal LV size with moderate concentric LVH and normal systolic function. Mild right ventricular enlargement moderate mitral regurgitation. Mild pulmonary hypertension. Mild to moderate tricuspid and mild aortic insufficiency Pericardial effusion Previewed by: Dr. Christian Loaiza MD (Electronically Signed) Final Date: 28 March 2022 11:36
[2022-03-28] MEDS: HYDROcodone/APAP 5-325MG 1 EACH TAB PO PRN (20:52)
[2022-03-28] MEDS: ATORVASTATIN 80 MG TAB PO SCH (20:53)
[2022-03-28] MEDS: HEPARIN SODIUM,PORCINE/PF 5,000 UNIT/0.5 ML SYRINGE SQ SCH (20:54)
[2022-03-29 01:09] VITALS: RESP 18
[2022-03-29] MEDS: SODIUM CHLORIDE 0.9% 1,000 ML IV SCH (01:45)
[2022-03-29] MEDS: HYDROcodone/APAP 5-325MG 1 EACH TAB PO PRN ×3 (03:49→21:01)
[2022-03-29 06:35] LABS: Basophils % (A) 0 %; Eosinophils # (A) 0.1 k/uL (0-0.7); Eosinophils % (A) 2 %; HCT 33.8 % (39.0-53.0); HGB 10.5 gm/dL (13.0-17.5); Lymphocytes # (A) 0.7 k/uL (1.0-4.8); Lymphocytes % (A) 9 %; MCH 29.9 pg (25.0-35.0); MCHC 31.1 g/dL (31.0-37.0); MCV 96.2 fL (80.0-100.0); Mean Platelet Volume 8.4; Monocytes # (A) 0.7 k/uL (0-1.0); Monocytes % (A) 9 %; Neutrophils # (A) 6.1 k/uL (1.3-7.7); Neutrophils % (A) 76 %; Platelet Count 172 k/uL (150-450); RBC 3.51 m/uL (4.30-5.90); RDW 14.2 % (11.5-15.5); WBC 7.9 k/uL (3.8-10.6)
[2022-03-29 06:54] LABS: Calcium 7.7 mg/dL (8.4-10.2); Potassium 3.8 mmol/L (3.5-5.1)
[2022-03-29] MEDS: FAMOTIDINE 20 MG/2 ML VIAL IV SCH (09:11)
[2022-03-29] MEDS: FUROSEMIDE 20 MG TAB PO SCH (09:12)
[2022-03-29] MEDS: HEPARIN SODIUM,PORCINE/PF 5,000 UNIT/0.5 ML SYRINGE SQ SCH ×2 (09:12→20:59)
[2022-03-29] MEDS: FERROUS SULFATE 325 MG TAB PO SCH (09:12)
--- NOTE | 2022-03-29 11:25 | P.PN ---
Subjective Progress Note Date: 03/29/22 HISTORY OF PRESENT ILLNESS: This is a 81-year-old male with a past medical history significant for coronary artery disease with previous stenting, hypertension, and hyperlipidemia. Patient follows in the office with Dr. Alejo. We have been asked to see the patient in consultation for abnormal troponins. Patient examined at the bedside. Patient states he came to the hospital with a chief complaint of generalized weakness. Patient reports that he was at home and fell off the toilet. He reports having diarrhea at home for a few days. He denies any chest pain or pressure. Reports mild SOB. Reports left shoulder discomfort secondary to his fall. He does report falling 2-3 times over the past week. No syncopal episodes. He was up ambulating this morning with PT in the hallways. * EKG reveals sinus mechanism with no signs of acute ischemia * Chest xray minimal pleural reaction left lung base without change. No heart failure. Normal heart. * Laboratory data: WBC 11.9. Hemoglobin 11.7. Platelet Count 179. Sodium 138. Potassium 4.3. BUN 35. Creatinine 1.84. Troponin 0.282. 0.327. 0.325. * Current home cardiac medications include lisinopril 2.5 mg daily, Norvasc 10 m g daily, Lasix 20 mg daily, and Lipitor 80 mg at night * Patient underwent Lexiscan stress test in January 2020 which revealed fixed inferior wall defect with no acute reversible ischemia * Most recent echocardiogram obtained in July 2021 revealed ejection fraction 55% with [id number] MR and mild TR * Cardiac catheterization history: May 2020 with patent stent within the LAD with a moderate area of stenosis distal to the stent which has remained unchanged over the last 2 years. 03/29/2022 patient examined this morning at the bedside. Patient denies chest pain or pressure. He reports minimal shortness of breath. He denies dizziness or lightheadedness. Vital signs are stable. Echocardiogram completed revealing ejection fraction 50-55% PHYSICAL EXAM: VITAL SIGNS: Reviewed. GENERAL: Well-developed in no acute distress. HEENT: Head is normocephalic. Pupils are equal, round. Sclerae anicteric. Mucous membranes of the mouth are moist. Neck supple. No JVD or thyromegaly LUNGS: Respirations even and unlabored. Lungs essentially clear to auscultation bilaterally. HEART: Regular rate and rhythm. S1 and S2 heard. ABDOMEN: Soft. Nondistended. Nontender. EXTREMITIES: Normal range of motion. No clubbing or cyanosis. Peripheral pulses intact. No lower extremity edema NEUROLOGIC: Awake and alert. Oriented x 3. ASSESSMENT: Generalized weakness S/P Fall Leukocytosis Acute kidney injury Abnormal troponins, likely secondary to leukocytosis and acute kidney injury, not consistent with acute coronary syndrome Coronary artery disease with previous stenting Hypertension Hyperlipidemia History of sinus bradycardia, not on beta blockers on an outpatient basis PLAN: Continue current cardiac medications Patient is currently stable from a cardiac perspective Further recommendations pending patient's course Nurse practitioner note has been reviewed by physician. Signing provider agrees with the documented findings, assessment, and plan of care. Objective - Vital Signs Vital signs: Vital Signs Temp 98 F 03/29/22 07:55 Pulse 54 L 03/29/22 07:55 Resp 18 03/29/22 07:55 BP 149/72 03/29/22 07:55 Pulse Ox 96 03/29/22 07:55 Intake & Output 03/28/22 03/29/22 03/29/22 18:59 06:59 18:59 Intake Total 960 525 Output Total 700 150 Balance 960 -175 -150 Weight 93.7 kg Intake: Intake, IV Titration 525 Amount Sodium Chloride 0.9% 1, 525 000 ml @ 75 mls/hr IV . [id number] [facility] Rx#:[id number] Oral 960 Output: Urine 700 150 Other: Voiding Method Toilet Urinal Urinal Urinal Diaper # Voids 2 - Labs CBC & Chem 7: 03/29/22 06:04 03/29/22 06:04 Labs: Abnormal Lab Results - Last 24 Hours (Table) 03/29/22 03/29/22 Range/Units 06:04 06:04 RBC 3.51 L (4.30-5.90) m/uL Hgb 10.5 L (13.0-17.5) gm/dL Hct 33.8 L (39.0-53.0) % Lymphocytes # 0.7 L (1.0-4.8) k/uL BUN 31 H (9-20) mg/dL Creatinine 1.60 H (0.66-1.25) mg/dL Glucose 121 H (74-99) mg/dL Calcium 7.7 L (8.4-10.2) mg/dL Microbiology - Last 24 Hours (Table) 03/27/22 17:32 Urine Culture - Preliminary Urine,Voided Gram Neg Bacilli
--- NOTE | 2022-03-29 11:56 | XR ---
Lumbar spine HISTORY: Trauma, pain, numbness 3 views of the lumbar spine Correlation to prior exam 03/02/2019 CT abdomen pelvis 03/27/2022 Lumbar vertebral bodies show preserved bone mineralization. There is multilevel spondylosis. Loss of disc height is present at intervertebral levels. Sclerosis is present in the posterior elements simil ar to prior exam. Atheromatous calcification in the aorta iliac distribution. Patient is post hip art hroplasty. Probable vacuum phenomenon present at L5-S1. There is a kyphosis centered near T11-12, mil d wedge deformity of questionable age, also noted on prior CT. IMPRESSION: Degenerative disc disease, facet arthropathy and additional findings above. There may be some underlying spinal stenosis.
--- NOTE | 2022-03-29 12:34 | P.PN ---
Subjective This is a pleasant 81 years old male with past medical history of hypertension, hyperlipidemia, Coronary Artery Disease (status post stent, Heart Failure, Deep Vein Thrombosis not on anticoagulation, Prostate Disorder, Pulmonary Embolus on anticoagulation. History with UTI secondary to ESBL Mo, history of bladder stones and kidney stones, status post lithotripsy, chronic anemia, chronic low back pain, neuropathy R foot,discitis Patient presents because she fell down between the toilet in the wall without losing consciousness or feeling dizzy. Patient states that he was trying to sit on the commode when he missed. He denies head trauma. Complaining of from some shoulder pain. No headache or weakness or numbness. He has some dry cough. In some dyspnea for the last 2 days but no chest pain. Patient states that he has diarrhea for 3 days but no abdominal pain, no vomiting. He denies dysuria but he complains from some suprapubic pain with increased frequency of urination. He has chronic back pain Patient has history of 3 stents before. His public relations senior associate is Dr. Alejo Vitals are stable, mildly bradycardic but not febrile. Labs showing mild leukocytosis of 12.7. Hemoglobin 11.3, platelets normal. INR normal Creatinine is elevated at 1.9 which is baseline of 1.3-2.0 Liver enzymes not elevated. Elevated troponin 0.28 and 0.327 TSH is normal at 1.4 as well as free T4 at 1.3. Urinalysis is suspicious for infection EKG showing sinus bradycardia at [address]-T changes CT of the abdomen and pelvis without contrast showing multiple hepatic cysts without change. Right renal cortical cyst without change. Patchy atelectasis of the lung bases. There are some chronic urinary bladder wall thickening similar to old exam. This could be related to chronic cholecystitis. Chest x-ray: No acute process CT of the brain negative for acute process showing cerebral atrophy. Emergency room patient started on ceftriaxone and heparin drip. Normal saline at 130 mL/h Cardiology team consulted. 03/29/2022 patient has no UTI symptoms today. Lower abdominal pain resolved. Discontinue for low back pain and asked for x-ray. X-ray did not show any fracture but degenerative changes. Also was complaining of from numbness in his left leg. Orthopedic team consulted Relief Docking Master team cleared the patient for discharge Follow-up urine culture and creatinine PT/OT recommended home health care Possible discharge in 24-48 hours if he keeps improving Objective - Vital Signs Vital signs: Vital Signs Temp 98 F 03/29/22 07:55 Pulse 54 L 03/29/22 07:55 Resp 18 03/29/22 07:55 BP 149/72 03/29/22 07:55 Pulse Ox 96 03/29/22 07:55 Intake & Output 03/28/22 03/29/22 03/29/22 18:59 06:59 18:59 Intake Total 960 525 Output Total 700 150 Balance 960 -175 -150 Weight 93.7 kg Intake: Intake, IV Titration 525 Amount Sodium Chloride 0.9% 1, 525 000 ml @ 75 mls/hr IV . [id number] [facility] Rx#:[id number] Oral 960 Output: Urine 700 150 Other: Voiding Method Toilet Urinal Urinal Urinal Diaper # Voids 2 - Exam GENERAL: The patient is alert and oriented x3, not in any acute distress. Well developed, well nourished. HEENT: Pupils are round and equally reacting to light. EOMI. No scleral icterus. No conjunctival pallor. Normocephalic, atraumatic. No pharyngeal erythema. No thyromegaly. CARDIOVASCULAR: S1 and S2 present. No murmurs, rubs, or gallops. PULMONARY: Chest is clear to auscultation, no wheezing or crackles. ABDOMEN: Soft, nontender, nondistended, normoactive bowel sounds. No palpable organomegaly. MUSCULOSKELETAL: No joint swelling or deformity. EXTREMITIES: No cyanosis, clubbing, or pedal edema. NEUROLOGICAL: Gross neurological examination did not reveal any focal deficits. SKIN: No rashes. no petechiae. - Labs CBC & Chem 7: 03/29/22 06:04 03/29/22 06:04 Labs: Abnormal Lab Results - Last 24 Hours (Table) 03/29/22 03/29/22 Range/Units 06:04 06:04 RBC 3.51 L (4.30-5.90) m/uL Hgb 10.5 L (13.0-17.5) gm/dL Hct 33.8 L (39.0-53.0) % Lymphocytes # 0.7 L (1.0-4.8) k/uL BUN 31 H (9-20) mg/dL Creatinine 1.60 H (0.66-1.25) mg/dL Glucose 121 H (74-99) mg/dL Calcium 7.7 L (8.4-10.2) mg/dL Microbiology - Last 24 Hours (Table) 03/27/22 17:32 Urine Culture - Preliminary Urine,Voided Gram Neg Bacilli Assessment and Plan Assessment: Acute urinary tract infection Elevated troponin, most likely secondary to kidney disease. Cardiac causes CARDIOLOGY for discharge Lower back pain secondary to fall. Acute on chronic. With left leg numbness. reactive gastroenteritis fall secondary to above Chronic kidney disease, stage III Hypertension Hyperlipidemia History of coronary artery disease status post PCI History of DVT/PE, not on anticoagulation History of kidney stone status post lithotripsy Chronic back pain Plan: This is a pleasant 81 years old male who presents with UTI diarrhea, dehydration and fall. Continue with antibiotic. Currently with ceftriaxone. Follow-up urine culture Consults orthopedic team Cardiology team cleared the patient for discharge Labs and medication were reviewed.. Continue same treatment. Continue with symptomatic treatment. Resume home medication. Monitor lytes and vitals. DVT and GI prophylaxis. Further recommendations as per clinical course of the patient DVT prophylaxis: Subcutaneous heparin GI Prophylaxis: Pepcid PT/OT: Home health care Possible discharge in 24-48 hours he keeps improving
[2022-03-29] MEDS ORDERED: CYCLOBENZAPRINE 5 MG TAB PO PRN (13:30)
[2022-03-29] MEDS: methylPREDNISolone SOD SUCCI 125 MG/2 ML VIAL IV SCH ×2 (13:58→22:25)
[2022-03-29] MEDS: FAMOTIDINE 20 MG TAB PO SCH (20:59)
[2022-03-29] MEDS: ATORVASTATIN 80 MG TAB PO SCH (21:00)
[2022-03-30] MEDS: HYDROcodone/APAP 5-325MG 1 EACH TAB PO PRN (05:43)
--- NOTE | 2022-03-30 09:07 | P.CNOR ---
History of Present Illness - [facility] Consult date: 03/30/22 Consult reason: low back pain History of present illness: Patient is a very pleasant 81-year-old male who seen and examined today at bedside. The patient has a long history of low back pain on and off for the past 40 years but had exacerbation of his pain at his back and his left lower extremity since . On he was at home and he fell off his toilet no was stuck between the toilet and the wall for about 45 minutes before he was found to help. He was having some weakness along his left leg and some increased back pain. He has been admitted to the hospital in regards to the fall and workup with some elevated troponins and we are asked to see him in regards to his leg weakness in his back pain. The patient says that his back and legs are doing much better today. He says he is making good progress and it seems to be going back in place. He says he is able lift his leg and is happy with his improvement in his strength in his leg thus far. He has been able to ambulate he feels like he can ambulatory on his own. He says his back usually has pain on and off the same spot that he cur rently has pain and it is improving now. He is unaware of any other specific injury in his back but says that he has had pain on and off over the past 40 years. He says currently his back is somewhat comfortable. He is not complaining of any new pain in his low back. Review of Systems As stated per HPI. He has no new weakness. He feels his leg is getting stronger had is able lift his left leg quite well. He does not have any new or pain in his lower back. He is not having changes bowel bladder function. He is not having any new numbness or tingling. He feels his leg is making good improvements with his strength today. Past Medical History Past Medical History: Coronary Artery Disease (CAD), Heart Failure, Deep Vein Thrombosis (DVT), Hyperlipidemia, Pneumonia, Prostate Disorder, Pulmonary Embolus (PE) Additional Past Medical History / Comment(s): recurrent UTIs,UTI with sepsis, bladder stones and kidney stones, chronic anemia, chronic low back pain, neuropathy R foot,discitis T 11 12 w/ iv abx History of Any Multi-Drug Resistant Organisms: ESBL Year Discovered:: 10/20/20 MDRO Source:: ESBL URINE Past Surgical History: Appendectomy, Heart Catheterization, Heart Catheterization With Stent, Prostate Surgery Additional Past Surgical History / Comment(s): lithotripsy 12-08-19,Bladder stone removal 03/2018, TURP, colonoscopy, . Past Anesthesia/Blood Transfusion Reactions: No Reported Reaction Date of Last Stent Placement:: January 2019 Past Psychological History: No Psychological Hx Reported Additional Psychological History / Comment(s): Pt resides with his spouse. He uses no assistive device but they do own a cane and a walker. 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 Smoking Status: Never smoker Past Alcohol Use History: None Reported Past Drug Use History: None Reported - Past Family History Father Family Medical History: No Reported History Additional Family Medical History / Comment(s): Father was healthy and lived to be 95 yrs old. Mother Family Medical History: No Reported History Additional Family Medical History / Comment(s): . Medications and Allergies Home Medications Medication Instructions Recorded Confirmed Type Atorvastatin [Lipitor] 80 mg PO HS 05/06/19 03/27/22 History Ferrous Sulfate [Iron (65 MG 325 mg PO DAILY #30 tab 05/15/20 03/27/22 Rx Elemental)] Furosemide [Lasix] 20 mg PO DAILY 09/15/20 03/27/22 History Potassium Chloride ER [K-Dur 10] 10 meq PO BID 03/27/22 03/27/22 History amLODIPine [Norvasc] 10 mg PO DAILY 03/27/22 03/27/22 History lisinopriL [Zestril] 2.5 mg PO DAILY 03/27/22 03/27/22 History Allergies Allergy/AdvReac Type Severity Reaction Status Date / Time No Known Allergies Allergy Verified 03/27/22 19:00 Physical Examination Osteopathic Statement: *. No significant issues noted on an osteopathic structural exam other than those noted in the History and Physical/Consult. - L Spine: dermatomal strength & reflexes bilateral Strength: hip flexion: 5/5 (He is able to lift his legs up off the bed independently with essentially 5 out of 5 strength. No pain with internal rotation of his hips. He has good sensation in his legs. He has sustained dorsal flexion plantarflexion and EHL bilaterally.) Strength: knee flexion: 5/5 (His back does not have any point tenderness. He has some diffuse tenderness at his paraspinals particularly at his thoracolumbar junction. There is no open wounds lacerations or abrasions.) Results - Labs Labs: Microbiology - Last 24 Hours (Table) 03/27/22 17:32 Urine Culture - Final Urine,Voided Klebsiella pneumoniae H & H 03/27/22 03/28/22 03/29/22 Range/Units 21:02 04:47 06:04 Hgb 11.3 L 11.7 L 10.5 L (13.0-17.5) gm/dL Hct 34.6 L 35.4 L 33.8 L (39.0-53.0) % Coagulation 03/27/22 03/27/22 03/28/22 Range/Units 19:18 22:08 04:47 INR 1.1 1.1 1.1 (<1.2) Result Diagrams: 03/29/22 06:04 03/29/22 06:04 - Diagnostic results CT Scan - lumbar: report reviewed (Imaging of the spine on the chest abdomen to this CT shows severe degenerative changes throughout his lumbar spine. He has a chronic compression fracture at T11 which was visualized on MRI from 2019. He also has severe stenosis L3 4 and L4 5 and facet arthrosis with degenerative disc disease), image reviewed Assessment and Plan Assessment: Status post fall at home Lower extremity weakness significant improving Acute exacerbation of chronic low back pain and lower extremity radiculopathy Chronic compression deformity at T11, without evidence of acute fracture Severe degenerative disc disease and spondylosis Spinal stenosis most severe at L3 4 and L4 5 with facet arthrosis Overall improving appropriately with conservative treatment Plan: Status post fall at home Lower extremity weakness significant improving Acute exacerbation of chronic low back pain and lower extremity radiculopathy Chronic compression deformity at T11, without evidence of acute fracture Severe degenerative disc disease and spondylosis Spinal stenosis most severe at L3 4 and L4 5 with facet arthrosis Overall improving appropriately with conservative treatment The patient is making good improvement overall with conservative treatment in terms of his back and his lower extremities. He says his pain is significant only subsiding and his strength is significantly improved where he feels almost essentially normal. He has been able to ambulate with standby assist and is eager to try to go home today. He says the pain is significant improved. He does not have any new pains of his back. The compression deformity noted at T11 was also seen on prior imaging from 2019 and I do not see any new fractures. I do not think he requires any bracing. I don't have any plans for surgical intervention at this point. Given his improvement I would continue to see how he does with oral conservative care. He could be a candidate for interventional pain management if his symptoms were to worsen but I think it is okay for him to be discharged home today with close follow-up and oral tapering steroid. I discussed this with Dr. colmenares he agrees as well.
[2022-03-30 09:16] VITALS: BP 141/64; PULSE 58; TEMP 98
[2022-03-30] MEDS: HEPARIN SODIUM,PORCINE/PF 5,000 UNIT/0.5 ML SYRINGE SQ SCH (09:17)
[2022-03-30] MEDS: FAMOTIDINE 20 MG TAB PO SCH (09:17)
[2022-03-30] MEDS: FUROSEMIDE 20 MG TAB PO SCH (09:17)
[2022-03-30] MEDS: FERROUS SULFATE 325 MG TAB PO SCH (09:17)
[2022-03-30] MEDS: methylPREDNISolone SOD SUCCI 125 MG/2 ML VIAL IV SCH (09:17)
[2022-03-30] MEDS ORDERED: lisinopriL 5 MG TAB PO SCH (09:30)
[2022-03-30] MEDS ORDERED: LIDOCAINE 5% PATCH TOPICAL SCH (10:15)
--- NOTE | 2022-03-30 10:49 | P.CNOR ---
History of Present Illness - [facility] Consult date: 03/29/22 Consult reason: low back pain History of present illness: Patient is 81 yo male seen at bedside this am in consultation for low back pain after a fall at home yesterday 03/28/2022. He was admitted through the Emergency Department with complaints of low back pain and generalized weakness. Patient was using the restroom at home when he fell and was unable to get up on his own. Patient has been feeling generally weak for the past several days. He states that he has had chronic low back pain. He denies acute numbness, bowel or bladder loss, saddle anesthesia or other. Review of Systems All systems: negative Constitutional: Denies chills, Denies fever Eyes: denies blurred vision, denies pain Ears, nose, mouth and throat: Denies headache, Denies sore throat Cardiovascular: Denies chest pain, Denies shortness of breath Respiratory: Denies cough Gastrointestinal: Denies abdominal pain, Denies diarrhea, Denies nausea, Denies vomiting Musculoskeletal: Denies myalgias Integumentary: Denies pruritus, Denies rash Neurological: Denies numbness, Denies weakness Psychiatric: Denies anxiety, Denies depression Endocrine: Denies fatigue, Denies weight change Past Medical History Past Medical History: Coronary Artery Disease (CAD), Heart Failure, Deep Vein Thrombosis (DVT), Hyperlipidemia, Pneumonia, Prostate Disorder, Pulmonary Embolus (PE) Additional Past Medical History / Comment(s): recurrent UTIs,UTI with sepsis, bladder stones and kidney stones, chronic anemia, chronic low back pain, neuropathy R foot,discitis T 11 12 w/ iv abx History of Any Multi-Drug Resistant Organisms: ESBL Year Discovered:: 10/20/20 MDRO Source:: ESBL URINE Past Surgical History: Appendectomy, Heart Catheterization, Heart Catheterization With Stent, Prostate Surgery Additional Past Surgical History / Comment(s): lithotripsy 12-08-19,Bladder stone removal 03/2018, TURP, colonoscopy, . Past Anesthesia/Blood Transfusion Reactions: No Reported Reaction Date of Last Stent Placement:: January 2019 Past Psychological History: No Psychological Hx Reported Additional Psychological History / Comment(s): Pt resides with his spouse. He uses no assistive device but they do own a cane and a walker. 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 Smoking Status: Never smoker Past Alcohol Use History: None Reported Past Drug Use History: None Reported - Past Family History Father Family Medical History: No Reported History Additional Family Medical History / Comment(s): Father was healthy and lived to be 95 yrs old. Mother Family Medical History: No Reported History Additional Family Medical History / Comment(s): . Medications and Allergies Home Medications Medication Instructions Recorded Confirmed Type Atorvastatin [Lipitor] 80 mg PO HS 05/06/19 03/27/22 History Ferrous Sulfate [Iron (65 MG 325 mg PO DAILY #30 tab 05/15/20 03/27/22 Rx Elemental)] Furosemide [Lasix] 20 mg PO DAILY 09/15/20 03/27/22 History Cefuroxime Axetil [Ceftin] 500 mg PO BID 4 Days #8 tab 03/30/22 Rx Famotidine [Pepcid] 20 mg PO DAILY #12 tablet 03/30/22 Rx lisinopriL [Zestril] 5 mg PO DAILY 30 Days #30 tab 03/30/22 Rx predniSONE 10 mg PO DAILY #24 tab 03/30/22 Rx Allergies Allergy/AdvReac Type Severity Reaction Status Date / Time No Known Allergies Allergy Verified 03/27/22 19:00 Physical Examination Tender at mid/low lumbar paraspinal. No wounds, fluctuance, deformity, stepoff, erythema or echymoses. Exam of the back reveals no dimples, patches, lacerations, or abrasions. There is some paravertebral spasm. Motion of the lumbar spine reveals flexion is to 60 degrees and extension is to 10 degrees. No pain on internal or external rotation of bilateral hips. Right Lower extremity: Motor strength of the lower extremity is 5/5 including dorsiflexion, plantar flexion, extensor hallucis longus, hip flexion, knee extension abduction and adduction. Left Lower extremity: Motor strength of the lower extremity is 5/5 including dorsiflexion, plantar flexion, extensor hallucis longus, hip flexion, knee extension abduction and adduction. Lower extremities grossly intact neurologically. Results Xrays show no fracture or instability. Chronic changes. CT abdomen pelvis show stenosis at L4-5 - Labs Labs: Abnormal Lab Results - Last 24 Hours (Table) 03/29/22 03/29/22 Range/Units 06:04 06:04 RBC 3.51 L (4.30-5.90) m/uL Hgb 10.5 L (13.0-17.5) gm/dL Hct 33.8 L (39.0-53.0) % Lymphocytes # 0.7 L (1.0-4.8) k/uL BUN 31 H (9-20) mg/dL Creatinine 1.60 H (0.66-1.25) mg/dL Glucose 121 H (74-99) mg/dL Calcium 7.7 L (8.4-10.2) mg/dL Microbiology - Last 24 Hours (Table) 03/27/22 17:32 Urine Culture - Preliminary Urine,Voided Gram Neg Bacilli H & H 03/27/22 03/28/22 03/29/22 Range/Units 21:02 04:47 06:04 Hgb 11.3 L 11.7 L 10.5 L (13.0-17.5) gm/dL Hct 34.6 L 35.4 L 33.8 L (39.0-53.0) % Coagulation 03/27/22 03/27/22 03/28/22 Range/Units 19:18 22:08 04:47 INR 1.1 1.1 1.1 (<1.2) Result Diagrams: 03/29/22 06:04 03/29/22 06:04 - Diagnostic results Lumbar AP/lateral x-ray: report reviewed, image reviewed Assessment and Plan (1) Lumbar degenerative disc disease Narrative/Plan: Patient discussed with Dr. Buckner. No plans for immediate surgical intervention. He has recommended short term IV corticosteroids, PT and pain management. Will follow. Current Visit: Yes Status: Acute Priority: Medium Code(s): M51.36 - OTHER INTERVERTEBRAL DISC DEGENERATION, LUMBAR REGION SNOMED Code(s): 27258241 (2) Degenerative lumbar spinal stenosis Current Visit: Yes Status: Acute Priority: Medium Code(s): M48.061 - SPINAL STENOSIS, LUMBAR REGION WITHOUT NEUROGENIC SHASHI SNOMED Code(s): 754135483 Time with Patient: Less than 30
--- NOTE | 2022-03-30 11:35 | P.PN ---
Subjective Progress Note Date: 03/30/22 Patient is seen today sitting in the chair doing well. He denies chest pain or shortness of breath patient's blood pressure is poorly controlled. Will increase his lisinopril 5 mg daily. Continue with Lasix 20 mg by mouth BUN and creatinine continue to improving, BUN was 31 creatinine was 1.6. Will continue to follow kidney function Objective - Vital Signs Vital signs: Vital Signs Temp 98.0 F 03/30/22 09:14 Pulse 58 L 03/30/22 09:14 Resp 18 03/30/22 09:14 BP 141/64 03/30/22 09:14 Pulse Ox 93 L 03/30/22 09:14 Intake & Output 03/29/22 03/30/22 03/30/22 18:59 06:59 18:59 Intake Total 120 120 Output Total 500 500 Balance -380 -500 120 Intake: Oral 120 120 Output: Urine 500 500 Other: Voiding Method Urinal Urinal Diaper # Voids 0 0 # Emeses 0 - Exam PHYSICAL EXAM: VITAL SIGNS: Reviewed. GENERAL: Well-developed in no acute distress. HEENT: Head is normocephalic. Pupils are equal, round. Sclerae anicteric. Mucous membranes of the mouth are moist. NECK: Supple. No JVD or thyromegaly RESPIRATORY: Respirations even and unlabored. Lungs diminished to auscultation bilaterally. CARDIO: Regular rate and rhythm. S1 and S2 heard. No murmur or gallops. EXTREMITIES: Normal range of motion. No clubbing or cyanosis. Peripheral pulses intact. Negative for bilateral lower extremity edema NEURO: Orientated to person, time, mood is appropriate - Labs CBC & Chem 7: 03/29/22 06:04 03/29/22 06:04 Labs: Microbiology - Last 24 Hours (Table) 03/27/22 17:32 Urine Culture - Final Urine,Voided Klebsiella pneumoniae Assessment and Plan Assessment: Abnormal troponins, likely secondary to leukocytosis and acute kidney injury, not consistent with acute coronary syndrome Acute kidney injury Coronary artery disease with previous stenting Hypertension Hyperlipidemia History of sinus bradycardia, not on beta blockers on an outpatient basis Plan: Increase lisinopril to 5 mg daily Continue with all other current cardiac medications Further recommendations based on clinical course The above impression and plan of care have been discussed and directed by the signing physician. Bekah Caceres, nurse practitioner, acting as scribe for signing physician.
--- NOTE | 2022-03-30 21:21 | P.DS ---
Providers Date of admission: 03/27/22 20:31 Attending physician: Melissa Dubon Consults: 03/27/22 20:32 Consult Physician Urgent Consulting Provider: Tera Alejo Consult Reason/Comments: weak, elevted troponin Do you want consulting provider notified?: Yes 03/29/22 09:32 Consult Physician Urgent Consulting Provider: Devante Buckner Consult Reason/Comments: back pain and numbness secondary to fall Do you want consulting provider notified?: Yes Primary care physician: Wanda Jameson Hospital Course: Diagnoses: Acute urinary tract infection Elevated troponin, most likely secondary to kidney disease. CARDIOLOGY team. Patient for discharge Lower back pain secondary to fall. Acute on chronic. With left leg numbness. Improved significantly upon discharge reactive gastroenteritis fall secondary to above Chronic kidney disease, stage III Hypertension Hyperlipidemia History of coronary artery disease status post PCI History of DVT/PE, not on anticoagulation History of kidney stone status post lithotripsy Chronic back pain Hospital course: This is a pleasant 81 years old male with past medical history of hypertension, hyperlipidemia, Coronary Artery Disease (status post stent), Heart Failure, Deep Vein Thrombosis not on anticoagulation, Prostate Disorder, Pulmonary Embolus not on anticoagulation. History with UTI secondary to ESBL Mo, history of bladder stones and kidney stones, status post lithotripsy, chronic anemia, chronic low back pain, neuropathy R foot,discitis Patient presents because she fell down between the toilet in the wall without losing consciousness or feeling dizzy. Patient found to have generalized weakness secondary to UTI with culture growing Klebsiella he was treated with ceftriaxone which showed interval improvement in his back to his baseline. Kacie ent will be discharged on short course of oral Ceftin. Physical therapist recommended home health care however patient declined stress this service. Also orthopedic team evaluated the patient because he was complaining of from worsening lower back pain with some numbness in his left leg, he received steroids and his pain and numbness significantly improved. Patient with no weakness and can ambulate at baseline. Orthopedic team recommended conservative management and follow-up as an outpatient in one week, patient informed and he agrees. Orthopedic team prescribed oral prednisone and Pepcid for him upon discharge. Machine Bunch Maker evaluated the patient for high troponin which is felt secondary to kidney function impairment rather than cardiac disease. Patient has CKD stage III. Patient today is back to baseline and he denies any chest pain or dyspnea, no abdominal pain. No urinary symptoms. No nausea vomiting. No fever. Patient is to go home today. Problems and management plan were discussed with the patient and he verbalized understanding and acceptance Patient was found stable and can be discharged home however he needs follow-up as an outpatient. Patient was instructed to follow up with PCP Dr. Muñoz within one week and patient agrees Patient was instructed to follow up with spine surgeon Dr. Buckner in one week and concrete engineering technician Dr. Alejo in 2 weeks and he agrees to follow and make appointment as today is week Physical exam Gen: patient is a AAOx3, no distress CVS: S1-S2, RRR, no murmur Lungs: B/L CTA, no wheezing Abdomen: soft, no distention, no tenderness, positive bowel sounds Extremity: no leg edema or induration Time spent more than 35 minutes Plan - Discharge Summary Discharge Rx Participant: No New Discharge Prescriptions: New predniSONE 10 mg PO DAILY #24 tab lisinopriL [Zestril] 5 mg PO DAILY 30 Days #30 tab Famotidine [Pepcid] 20 mg PO DAILY #12 tablet Cefuroxime Axetil [Ceftin] 500 mg PO BID 4 Days #8 tab Continue Atorvastatin [Lipitor] 80 mg PO HS Ferrous Sulfate [Iron (65 MG Elemental)] 325 mg PO DAILY #30 tab Furosemide [Lasix] 20 mg PO DAILY Discontinued lisinopriL [Zestril] 2.5 mg PO DAILY amLODIPine [Norvasc] 10 mg PO DAILY Potassium Chloride ER [K-Dur 10] 10 meq PO BID Discharge Medication List Atorvastatin [Lipitor] 80 mg PO HS 05/06/19 [History] Ferrous Sulfate [Iron (65 MG Elemental)] 325 mg PO DAILY #30 tab 05/15/20 [Rx] Furosemide [Lasix] 20 mg PO DAILY 09/15/20 [History] Cefuroxime Axetil [Ceftin] 500 mg PO BID 4 Days #8 tab 03/30/22 [Rx] Famotidine [Pepcid] 20 mg PO DAILY #12 tablet 03/30/22 [Rx] lisinopriL [Zestril] 5 mg PO DAILY 30 Days #30 tab 03/30/22 [Rx] predniSONE 10 mg PO DAILY #24 tab 03/30/22 [Rx] Follow up Appointment(s)/Referral(s): Trino Muñoz MD [Primary Care Provider] - 04/05/22 10:00 am (- We recommend to check your blood test including kidney function and potassium and electrolytes in one week with your doctor) Devante Buckner DO [Doctor of Osteopathic Medicine] - 2 Weeks (Office is closed. Please call to make follow up appoitment. ) Tera Alejo MD [STAFF PHYSICIAN] - 2 Weeks (Office is closed. Please call to make follow up appoitment. ) Patient Instructions/Handouts: Low Back Strain (GEN), Fall Prevention (GEN) Activity/Diet/Wound Care/Special Instructions: Heart healthy diet Activity is restricted till you see your doctor - We recommend to check your blood test including kidney function and potassium and electrolytes in one week with your doctor Discharge Disposition: HOME SELF-CARE
== END 2022-03-30 13:46 | disposition home or self-care (01) | DRG 690 ==
LOC: EC 17:00 → 3SCARD 20:31
PROVIDERS: ADMIT Hospitalist; ATTEND Hospitalist
DX: N39.0 Urinary tract infection, site not specified (principal); I13.0 Hypertensive heart and chronic kidney disease with heart failure and stage 1 through stage 4 chronic kidney disease, or unspecified chronic kidney disease; J98.11 Atelectasis; M48.54XA Collapsed vertebra, not elsewhere classified, thoracic region, initial encounter for fracture; N17.9 Acute kidney failure, unspecified; B96.1 Klebsiella pneumoniae [K. pneumoniae] as the cause of diseases classified elsewhere; E78.5 Hyperlipidemia, unspecified; E86.0 Dehydration; G89.29 Other chronic pain; I25.10 Atherosclerotic heart disease of native coronary artery without angina pectoris; I50.9 Heart failure, unspecified; K52.9 Noninfective gastroenteritis and colitis, unspecified; M47.819 Spondylosis without myelopathy or radiculopathy, site unspecified; M48.061 Spinal stenosis, lumbar region without neurogenic claudication; I45.10 Unspecified right bundle-branch block; M51.16 Intervertebral disc disorders with radiculopathy, lumbar region; G62.9 Polyneuropathy, unspecified; R00.1 Bradycardia, unspecified; N18.30 Chronic kidney disease, stage 3 unspecified; R77.8 Other specified abnormalities of plasma proteins; Z28.310 Unvaccinated for COVID-19; N28.1 Cyst of kidney, acquired; W18.11XA Fall from or off toilet without subsequent striking against object, initial encounter; Y92.002 Bathroom of unspecified non-institutional (private) residence as the place of occurrence of the external cause; Z79.899 Other long term (current) drug therapy; Z86.711 Personal history of pulmonary embolism; Z86.718 Personal history of other venous thrombosis and embolism; Z87.440 Personal history of urinary (tract) infections; Z87.442 Personal history of urinary calculi; Z95.5 Presence of coronary angioplasty implant and graft; Z90.79 Acquired absence of other genital organ(s)
CPT/HCPCS: 36415; 70450; 71046; 72100; 74176; 80048; 80053; 81001; 82550; 83605; 83735; 84439; 84443; 84481; 84484; 85025; 85610; 85730; 87077; 87086; 87186; 93005; 93306; 94760; 96361; 96365; 99285

== ENCOUNTER → 2022-12-20 | Outpatient (CLI) | payer MEDICARE ==
[2022-12-20 18:17] LABS: ALT 19 U/L (10-49); AST 34 U/L (14-35); Chol/HDL Ratio 2.39 Ratio; LDL Cholesterol,Calculated 59.5 mg/dL (0.0-131.0); VLDL Calculation 9.66 mg/dL (5.00-40.00)
== END | disposition home or self-care (01) ==
LOC: LABWHC1 11:45
PROVIDERS: ATTEND Internal Medicine Interventional Cardiology
DX: E78.2 Mixed hyperlipidemia (principal)
CPT/HCPCS: 36415; 80061; 84450; 84460

== ENCOUNTER → 2023-07-14 | Outpatient (CLI) | payer MEDICARE ==
[2023-07-14 19:56] LABS: ALT 18 U/L (10-49); AST 30 U/L (14-35); Chol/HDL Ratio 2.26 Ratio; LDL Cholesterol,Calculated 53.8 mg/dL (0.0-131.0); VLDL Calculation 9.16 mg/dL (5.00-40.00)
== END | disposition home or self-care (01) ==
LOC: LABWHC1 10:39
PROVIDERS: ATTEND Internal Medicine Cardiovascular Disease
DX: E78.2 Mixed hyperlipidemia (principal)
CPT/HCPCS: 36415; 80061; 84450; 84460

== ENCOUNTER 2023-09-22 11:00 | Emergency (ER) | payer MEDICARE ==
--- NOTE | 2023-09-22 11:52 | XR ---
EXAMINATION TYPE: XR chest 2V DATE OF EXAM: 09/22/2023 11:48 AM COMPARISON: Chest radiographs from 03/27/2022 TECHNIQUE: XR chest 2V Frontal and lateral views of the chest. CLINICAL INDICATION:Male, 83 years old with history of Cough; FINDINGS: Lungs/Pleura: There is no evidence of pleural effusion, focal consolidation, or pneumothorax. Chroni c senescent parenchymal change. Pulmonary vascularity: Unremarkable. Heart/mediastinum: Cardiomediastinal silhouette is unremarkable. Atherosclerotic calcifications are seen in the aorta. Musculoskeletal: Multiple level degenerative disc disease changes seen throughout the spine. IMPRESSION: No acute cardiopulmonary disease/process.
[2023-09-22 11:55] LABS: ALT 17 U/L (4-49); AST 28 U/L (17-59); African American GFR (CKD) 54 (>60 ml/min/1.73 sqM); Albumin 3.9 g/dL (3.5-5.0); Alkaline Phosphatase 73 U/L (38-126); Anion Gap 9 mmol/L; Blood Urea Nitrogen 34 mg/dL (9-20); Calcium 8.8 mg/dL (8.4-10.2); Carbon Dioxide 24 mmol/L (22-30); Chloride 106 mmol/L (98-107); Glucose 107 mg/dL (74-99); Non-African American GFR(CKD) 47 (>60 ml/min/1.73 sqM); Sodium 139 mmol/L (137-145); Total Bilirubin 1.2 mg/dL (0.2-1.3); Total Protein 6.9 g/dL (6.3-8.2)
[2023-09-22 12:09] LABS: Basophils % (A) 0 %; Eosinophils # (A) 0.2 k/uL (0-0.7); Eosinophils % (A) 3 %; HCT 36.7 % (39.0-53.0); HGB 12.4 gm/dL (13.0-17.5); Lymphocytes # (A) 1.2 k/uL (1.0-4.8); Lymphocytes % (A) 19 %; MCH 31.5 pg (25.0-35.0); MCHC 33.9 g/dL (31.0-37.0); Monocytes # (A) 0.4 k/uL (0-1.0); Monocytes % (A) 7 %; Neutrophils # (A) 4.2 k/uL (1.3-7.7); Neutrophils % (A) 70 %; Platelet Count 168 k/uL (150-450); RBC 3.95 m/uL (4.30-5.90); RDW 14.7 % (11.5-15.5)
[2023-09-22 12:27] LABS: INR 1.2 (<1.2); Partial Thromboplastin Time 26.9 sec (22.0-30.0); Prothrombin Time 12.3 sec (10.0-12.5)
--- NOTE | 2023-09-22 12:29 | ED ---
General Adult HPI - General Chief complaint: Dizziness Stated complaint: dizzy, Time Seen by Provider: 09/22/23 12:19 Source: patient, RN notes reviewed, old records reviewed Mode of arrival: ambulatory Limitations: no limitations - History of Present Illness Initial comments: 83-year-old male presenting with generalized weakness, fatigue and dizziness. Symptoms 7 present for the past 5 days. He does report headache associated with symptoms. Patient's has been sick with cold symptoms for the past one week. He does have history of coronary artery disease. He denies dyspnea. Denies vomiting. States he has been eating and drinking well. No fevers. No focal numbness or weakness. - Related Data Home Medications Medication Instructions Recorded Confirmed Atorvastatin [Lipitor] 80 mg PO HS 05/06/19 03/27/22 Furosemide [Lasix] 20 mg PO DAILY 09/15/20 03/27/22 Previous Rx's Medication Instructions Recorded Ferrous Sulfate [Iron (65 MG 325 mg PO DAILY #30 tab 05/15/20 Elemental)] Famotidine [Pepcid] 20 mg PO DAILY #12 tablet 03/30/22 cefUROXime axetiL [Ceftin] 500 mg PO BID 4 Days #8 tab 03/30/22 lisinopriL [Zestril] 5 mg PO DAILY 30 Days #30 tab 03/30/22 predniSONE 10 mg PO DAILY #24 tab 03/30/22 Cephalexin [Keflex] 500 mg PO Q12HR #20 cap 09/22/23 Allergies Allergy/AdvReac Type Severity Reaction Status Date / Time No Known Allergies Allergy Verified 09/22/23 11:17 Review of Systems ROS Statement: Those systems with pertinent positive or pertinent negative responses have been documented in the HPI. ROS Other: All systems not noted in ROS Statement are negative. Past Medical History Past Medical History: Coronary Artery Disease (CAD), Heart Failure, Deep Vein Thrombosis (DVT), Hyperlipidemia, Pneumonia, Prostate Disorder, Pulmonary Embolus (PE) Additional Past Medical History / Comment(s): recurrent UTIs,UTI with sepsis, bladder stones and kidney stones, chronic anemia, chronic low back pain, neuropathy R foot,discitis T 11 12 w/ iv abx History of Any Multi-Drug Resistant Organisms: ESBL Date of last positivie culture/infection: 10/20/20 MDRO Source:: ESBL URINE Past Surgical History: Appendectomy, Heart Catheterization, Heart Catheterization With Stent, Prostate Surgery Additional Past Surgical History / Comment(s): lithotripsy 12-08-19,Bladder stone removal 03/2018, TURP, colonoscopy, . Past Anesthesia/Blood Transfusion Reactions: No Reported Reaction Date of Last Stent Placement:: January 2019 Past Psychological History: No Psychological Hx Reported Smoking Status: Never smoker Past Alcohol Use History: None Reported Past Drug Use History: None Reported - Past Family History Father Family Medical History: No Reported History Additional Family Medical History / Comment(s): Father was healthy and lived to be 95 yrs old. Mother Family Medical History: No Reported History Additional Family Medical History / Comment(s): . General Exam Limitations: no limitations General appearance: alert, in no apparent distress Head exam: Present: atraumatic, normocephalic Eye exam: Present: normal appearance, PERRL ENT exam: Present: mucous membranes dry Neck exam: Present: normal inspection. Absent: tenderness, meningismus Respiratory exam: Present: normal lung sounds bilaterally. Absent: respiratory distress, wheezes Cardiovascular Exam: Present: regular rate, normal rhythm GI/Abdominal exam: Present: soft. Absent: distended, tenderness Extremities exam: Present: normal inspection, normal capillary refill. Absent: pedal edema, calf tenderness Neurological exam: Present: alert, oriented X3, CN II-XII intact. Absent: motor sensory deficit Psychiatric exam: Present: normal affect, normal mood Skin exam: Present: warm, dry, intact. Absent: cyanosis, diaphoretic Course Vital Signs 09/22/23 09/22/23 11:14 13:02 Temperature 98.8 F Pulse Rate 63 55 L Respiratory 20 22 Rate Blood Pressure 106/66 113/70 O2 Sat by Pulse 97 98 Oximetry Medical Decision Making - Medical Decision Making Was pt. sent in by a medical professional or institution (, PA, SDE, urgent care, hospital, or care home...) When possible be specific @ -No Did you speak to anyone other than the patient for history (EMS, parent, family, police, friend...)? What history was obtained from this source @ -Patient's daughter Did you review nursing and triage notes (agree or disagree)? Why? @ -I reviewed and agree with nursing and triage notes Were old charts reviewed (outside hosp., previous admission, EMS record, old EKG, old radiological studies, urgent care reports/EKG's, care home records)? Report findings @ -No old charts were reviewed Differential Diagnosis (chest pain, altered mental status, abdominal pain women, abdominal pain men, vaginal bleeding, weakness, fever, dyspnea, syncope, headache, dizziness, GI bleed, back pain, seizure, CVA, palpatations, mental health, musculoskeletal)? @ -[Differential Weakness: Hypoglycemia, shock, sepsis, hyponatremia, anemia, infection, CT, ETOH, adverse medicine reaction, overdose, stroke, this is not meant to be an all-inclusive list. EKG interpreted by me (3pts min.). @ -EKG: Atrial fibrillation, left anterior fascicular block, rate of 60, QRS duration 127, QTC 506 X-rays interpreted by me (1pt min.). @ Chest x-ray, no acute cardio pulmonary findings CT interpreted by me (1pt min.). @ -[CT brain negative for intracranial hemorrhage or mass effect U/S interpreted by me (1pt. min.). @ -None done What testing was considered but not performed or refused? (CT, X-rays, U/S, labs)? Why? @ -None What meds were considered but not given or refused? Why? @ -None Did you discuss the management of the patient with other professionals (professionals i.e. , PA, SDE, lab, RT, psych nurse, social services technician, double end production grinder, teacher, weapons officer naval activity, case mgr)? Give summary @ -No Was smoking cessation discussed for >3mins.? @ -No Was critical care preformed (if so, how long)? @ -No Were there social determinants of health that impacted care today? How? (Homelessness, low income, unemployed, alcoholism, drug addiction, transportation, low edu. Level, literacy, decrease access to med. care, alf, rehab)? @ -No Was there de-escalation of care discussed even if they declined (Discuss DNR or withdrawal of care, Hospice)? DNR status @ -No What co-morbidities impacted this encounter? (DM, HTN, Smoking, COPD, CAD, Cancer, CVA, ARF, Chemo, Hep., AIDS, mental health diagnosis, sleep apnea, morbid obesity)? @ -Coronary artery disease, recurrent UTI, atrial fibrillation Was patient admitted / discharged? Hospital course, mention meds given and route, prescriptions, significant lab abnormalities, going to OR and other pertinent info. @ -83-year-old male who presented with fatigue. Patient has stable vitals. No specific complaints otherwise. He does have history of recurrent UTI and an has urinary tract infection currently. He is treated with antibiotics for this. Additionally he has stable anemia, stable chronic kidney disease. He has a troponin elevation which is elevated his chronic troponin elevation. He also test positive for coronavirus. I did offer admission to this patient with multiple comorbidities and multiple reasons for fatigue. He declines and prefers to be discharged home. He states his is at home. His daughter is at bedside and they're both agreeable with discharge. There are given strict return parameters. He will be treated for urinary tract infection. His coronavirus has been present for at least 5 days. Undiagnosed new problem with uncertain prognosis? @ -No Drug Therapy requiring intensive monitoring for toxicity (Heparin, Nitro, Insulin, Cardizem)? @ -No Were any procedures done? @ -No Diagnosis/symptom? @ -UTI, coronavirus Acute, or Chronic, or Acute on Chronic? @ -[Acute Uncomplicated (without systemic symptoms) or Complicated (systemic symptoms)? @ -default Side effects of treatment? @ -No Exacerbation, Progression, or Severe Exacerbation? @ -No Poses a threat to life or bodily function? How? (Chest pain, USA, CT, pneumonia, PE, COPD, DKA, ARF, appy, cholecystitis, CVA, Diverticulitis, Homicidal, Suicidal, threat to staff... and all critical care pts) @ -[Low risk at this time - Lab Data Result diagrams: 09/22/23 11:25 09/22/23 11:25 Lab Results 09/22/23 09/22/23 09/22/23 Range/Units 11:25 11:25 11:25 WBC 6.0 (3.8-10.6) k/uL RBC 3.95 L (4.30-5.90) m/uL Hgb 12.4 L (13.0-17.5) gm/dL Hct 36.7 L (39.0-53.0) % MCV 93.0 (80.0-100.0) fL MCH 31.5 (25.0-35.0) pg MCHC 33.9 (31.0-37.0) g/dL RDW 14.7 (11.5-15.5) % Plt Count 168 (150-450) k/uL MPV 8.0 Neutrophils % 70 % Lymphocytes % 19 % Monocytes % 7 % Eosinophils % 3 % Basophils % 0 % Neutrophils # 4.2 (1.3-7.7) k/uL Lymphocytes # 1.2 (1.0-4.8) k/uL Monocytes # 0.4 (0-1.0) k/uL Eosinophils # 0.2 (0-0.7) k/uL Basophils # 0.0 (0-0.2) k/uL PT 12.3 (10.0-12.5) sec INR 1.2 H (<1.2) APTT 26.9 (22.0-30.0) sec Sodium 139 (137-145) mmol/L Potassium 4.0 (3.5-5.1) mmol/L Chloride 106 (98-107) mmol/L Carbon Dioxide 24 (22-30) mmol/L Anion Gap 9 mmol/L BUN 34 H (9-20) mg/dL Creatinine 1.38 H (0.66-1.25) mg/dL Est GFR (CKD-EPI)AfAm 54 (>60 ml/min/1.73 sqM) Est GFR (CKD-EPI)NonAf 47 (>60 ml/min/1.73 sqM) Glucose 107 H (74-99) mg/dL Calcium 8.8 (8.4-10.2) mg/dL Magnesium 2.0 (1.6-2.3) mg/dL Total Bilirubin 1.2 (0.2-1.3) mg/dL AST 28 (17-59) U/L ALT 17 (4-49) U/L Alkaline Phosphatase 73 (38-126) U/L Troponin I (0.000-0.034) ng/mL NT-Pro-B Natriuret Pep pg/mL Total Protein 6.9 (6.3-8.2) g/dL Albumin 3.9 (3.5-5.0) g/dL Urine Color Urine Appearance (Clear) Urine pH (5.0-8.0) Ur Specific [place] (1.001-1.035) Urine Protein (Negative) Urine Glucose (UA) (Negative) Urine Ketones (Negative) Urine Blood (Negative) Urine Nitrite (Negative) Urine Bilirubin (Negative) Urine Urobilinogen (<2.0) mg/dL Ur Leukocyte Esterase (Negative) Urine RBC (0-5) /hpf Urine WBC (0-5) /hpf Urine WBC Clumps (None) /hpf Ur Squamous Epith Cells (0-4) /hpf Urine Bacteria (None) /hpf Hyaline Casts (0-2) /lpf Urine Mucus (None) /hpf Influenza Type A (PCR) (Not Detectd) Influenza Type B (PCR) (Not Detectd) RSV (PCR) (Not Detectd) SARS-CoV-2 (PCR) (Not Detectd) 09/22/23 09/22/23 09/22/23 Range/Units 11:25 11:25 11:25 WBC (3.8-10.6) k/uL RBC (4.30-5.90) m/uL Hgb (13.0-17.5) gm/dL Hct (39.0-53.0) % MCV (80.0-100.0) fL MCH (25.0-35.0) pg MCHC (31.0-37.0) g/dL RDW (11.5-15.5) % Plt Count (150-450) k/uL MPV Neutrophils % % Lymphocytes % % Monocytes % % Eosinophils % % Basophils % % Neutrophils # (1.3-7.7) k/uL Lymphocytes # (1.0-4.8) k/uL Monocytes # (0-1.0) k/uL Eosinophils # (0-0.7) k/uL Basophils # (0-0.2) k/uL PT (10.0-12.5) sec INR (<1.2) APTT (22.0-30.0) sec Sodium (137-145) mmol/L Potassium (3.5-5.1) mmol/L Chloride (98-107) mmol/L Carbon Dioxide (22-30) mmol/L Anion Gap mmol/L BUN (9-20) mg/dL Creatinine (0.66-1.25) mg/dL Est GFR (CKD-EPI)AfAm (>60 ml/min/1.73 sqM) Est GFR (CKD-EPI)NonAf (>60 ml/min/1.73 sqM) Glucose (74-99) mg/dL Calcium (8.4-10.2) mg/dL Magnesium (1.6-2.3) mg/dL Total Bilirubin (0.2-1.3) mg/dL AST (17-59) U/L ALT (4-49) U/L Alkaline Phosphatase (38-126) U/L Troponin I 0.077 H* (0.000-0.034) ng/mL NT-Pro-B Natriuret Pep 6020 pg/mL Total Protein (6.3-8.2) g/dL Albumin (3.5-5.0) g/dL Urine Color Urine Appearance (Clear) Urine pH (5.0-8.0) Ur Specific [place] (1.001-1.035) Urine Protein (Negative) Urine Glucose (UA) (Negative) Urine Ketones (Negative) Urine Blood (Negative) Urine Nitrite (Negative) Urine Bilirubin (Negative) Urine Urobilinogen (<2.0) mg/dL Ur Leukocyte Esterase (Negative) Urine RBC (0-5) /hpf Urine WBC (0-5) /hpf Urine WBC Clumps (None) /hpf Ur Squamous Epith Cells (0-4) /hpf Urine Bacteria (None) /hpf Hyaline Casts (0-2) /lpf Urine Mucus (None) /hpf Influenza Type A (PCR) Not Detected (Not Detectd) Influenza Type B (PCR) Not Detected (Not Detectd) RSV (PCR) Not Detected (Not Detectd) SARS-CoV-2 (PCR) Detected A (Not Detectd) 09/22/23 Range/Units 12:59 WBC (3.8-10.6) k/uL RBC (4.30-5.90) m/uL Hgb (13.0-17.5) gm/dL Hct (39.0-53.0) % MCV (80.0-100.0) fL MCH (25.0-35.0) pg MCHC (31.0-37.0) g/dL RDW (11.5-15.5) % Plt Count (150-450) k/uL MPV Neutrophils % % Lymphocytes % % Monocytes % % Eosinophils % % Basophils % % Neutrophils # (1.3-7.7) k/uL Lymphocytes # (1.0-4.8) k/uL Monocytes # (0-1.0) k/uL Eosinophils # (0-0.7) k/uL Basophils # (0-0.2) k/uL PT (10.0-12.5) sec INR (<1.2) APTT (22.0-30.0) sec Sodium (137-145) mmol/L Potassium (3.5-5.1) mmol/L Chloride (98-107) mmol/L Carbon Dioxide (22-30) mmol/L Anion Gap mmol/L BUN (9-20) mg/dL Creatinine (0.66-1.25) mg/dL Est GFR (CKD-EPI)AfAm (>60 ml/min/1.73 sqM) Est GFR (CKD-EPI)NonAf (>60 ml/min/1.73 sqM) Glucose (74-99) mg/dL Calcium (8.4-10.2) mg/dL Magnesium (1.6-2.3) mg/dL Total Bilirubin (0.2-1.3) mg/dL AST (17-59) U/L ALT (4-49) U/L Alkaline Phosphatase (38-126) U/L Troponin I (0.000-0.034) ng/mL NT-Pro-B Natriuret Pep pg/mL Total Protein (6.3-8.2) g/dL Albumin (3.5-5.0) g/dL Urine Color Yellow Urine Appearance Cloudy (Clear) Urine pH 5.0 (5.0-8.0) Ur Specific [place] 1.015 (1.001-1.035) Urine Protein Trace (Negative) Urine Glucose (UA) Negative (Negative) Urine Ketones Negative (Negative) Urine Blood Small (Negative) Urine Nitrite Negative (Negative) Urine Bilirubin Negative (Negative) Urine Urobilinogen <2.0 (<2.0) mg/dL Ur Leukocyte Esterase Large (Negative) Urine RBC 11 H (0-5) /hpf Urine WBC >182 H (0-5) /hpf Urine WBC Clumps Many H (None) /hpf Ur Squamous Epith Cells <1 (0-4) /hpf Urine Bacteria Moderate H (None) /hpf Hyaline Casts 3 H (0-2) /lpf Urine Mucus Rare H (None) /hpf Influenza Type A (PCR) (Not Detectd) Influenza Type B (PCR) (Not Detectd) RSV (PCR) (Not Detectd) SARS-CoV-2 (PCR) (Not Detectd) Disposition Clinical Impression: Recurrent UTI, Troponin level elevated, COVID-19 Disposition: HOME SELF-CARE Condition: Good Instructions (If sedation given, give patient instructions): Urinary Tract Infection in Men (ED), COVID-19 (Coronavirus Disease 2019) (ED) Prescriptions: Cephalexin [Keflex] 500 mg PO Q12HR #20 cap Is patient prescribed a controlled substance at d/c from ED?: No Referrals: Trino Muñoz MD [Primary Care Provider] - 1-2 days Time of Disposition: 14:02
--- NOTE | 2023-09-22 12:44 | CT ---
EXAMINATION TYPE: CT brain wo con CT DLP: 1218.4 mGycm, Automated exposure control for dose reduction was used. DATE OF EXAM: 09/22/2023 12:39 PM COMPARISON: CT brain 03/27/2022 CLINICAL INDICATION:Male, 83 years old with history of dizzy/MOLINA, dizzy/headache TECHNIQUE: Brain: Multiple axial CT images of the brain were obtained without IV contrast. FINDINGS: Brain: Extra-axial spaces: No abnormal extra-axial fluid collections. Ventricular system: Within normal limits Cerebral parenchyma: No acute intraparenchymal hemorrhage or mass effect. The nuno-white junction is well differentiated. Cerebellum: Unremarkable. Mass effect: No evidence of midline shift. Intracranial vasculature: Atherosclerotic calcifications of the intracranial vessels. Soft tissues: Normal. Calvarium/osseous structures: No depressed skull fracture. Paranasal sinuses and mastoid air cells: Clear Visualized orbits: Bilateral aphakia IMPRESSION: 1. No acute intracranial process. 2. Nonspecific white matter changes, likely secondary to chronic small vessel ischemic disease.
[2023-09-22 13:36] LABS: Bacteria,Urine Moderate /hpf; Hyaline Casts,Urine 3 /lpf (0-2); Mucus,Urine Rare /hpf; RBC,Urine 11 /hpf (0-5); Squamous Epithelial Cell,Urine <1 /hpf (0-4); WBC,Urine >182 /hpf (0-5)
[2023-09-22 13:43] LABS: Appearance,Urine Cloudy (Clear); Bilirubin,Urine Negative (Negative); Color,Urine Yellow; Glucose,Urine (UA) Negative (Negative); Ketones,Urine Negative (Negative); Protein,Urine Trace (Negative); Specific Gravity,Urine 1.015 (1.001-1.035)
[2023-09-22 13:44] LABS: Blood,Urine Small (Negative); Leukocyte Esterase,Urine Large (Negative); Nitrite,Urine Negative (Negative); Urobilinogen,Urine <2.0 mg/dL (<2.0)
[2023-09-22] MEDS ORDERED: cefTRIAXone IN SWFI 1,000 MG/10 ML SYRINGE IVP STA (14:00)
[2023-09-22 14:41] VITALS: BP 133/85; PULSE 88; RESP 18; TEMP 97.2
== END 2023-09-22 14:33 | disposition home or self-care (01) ==
LOC: EC 11:00
DX: U07.1 COVID-19 (principal); R79.89 Other specified abnormal findings of blood chemistry; N39.0 Urinary tract infection, site not specified; E78.5 Hyperlipidemia, unspecified; I25.10 Atherosclerotic heart disease of native coronary artery without angina pectoris; I50.9 Heart failure, unspecified; Z79.899 Other long term (current) drug therapy; Z95.5 Presence of coronary angioplasty implant and graft
CPT/HCPCS: 96374 ×2; 99284 ×2; 36415; 93005; 83880; 80053; 83735; 84484; 85025; 85610; 85730; 81001; 87086; 87077; 87186; 87636; 71046; 70450; J0696

== ENCOUNTER → 2023-11-15 | Outpatient (CLI) | payer MEDICARE ==
--- NOTE | 2023-11-15 13:07 | XR ---
EXAMINATION TYPE: XR chest 2V DATE OF EXAM: 11/15/2023 12:37 PM CLINICAL INDICATION:Male, 83 years old with history of R07.9; COMPARISON: Chest radiographs from 09/22/2023 TECHNIQUE: XR chest 2V Frontal and lateral views of the chest. FINDINGS: Lungs/Pleura: There is no evidence of pleural effusion, focal consolidation, or pneumothorax. Pulmonary vascularity: Pulmonary vascular congestion. Heart/mediastinum: Cardiomediastinal silhouette is prominent in size. Musculoskeletal: No acute osseous pathology. Other findings: None IMPRESSION: Chronic changes without acute pulmonary process. No significant change from prior.
[2023-11-15 23:08] LABS: HCT 38.8 % (39.6-50.0); HGB 11.9 g/dL (13.0-17.0); MCH 29.8 pg (27.0-32.0); MCHC 30.7 g/dL (32.0-37.0); Mean Platelet Volume 10.2 FL (9.5-12.2); NRBC Per 100 WBC 0 X 10*3/uL (0.00-0.01); Platelet Count 184 X 10*3/uL (140-440); RDW 15.3 % (11.5-14.5); WBC 5.93 X 10*3/uL (4.50-10.00)
[2023-11-16 13:02] LABS: ALT 21 U/L (10-49); AST 27 U/L (14-35); BUN/Creat Ratio 24.27 Ratio (12.00-20.00); Blood Urea Nitrogen 36.4 mg/dL (9.0-27.0); Calcium 9.8 mg/dL (8.7-10.3); Carbon Dioxide 22.1 mmol/L (21.6-31.8); Chloride 109 mmol/L (96-109); Chol/HDL Ratio 2.18 Ratio; Glucose 94 mg/dL (70-110); LDL Cholesterol,Calculated 50.1 mg/dL (0.0-131.0); Sodium 144 mmol/L (135-145)
== END | disposition home or self-care (01) ==
LOC: LABWHC1 11:50
PROVIDERS: ATTEND Internal Medicine Cardiovascular Disease
DX: I25.10 Atherosclerotic heart disease of native coronary artery without angina pectoris (principal); E78.2 Mixed hyperlipidemia; R06.02 Shortness of breath
CPT/HCPCS: 36415; 71046; 80048; 80061; 84443; 84450; 84460; 85027

== ENCOUNTER → 2023-12-11 | Day surgery (SDC) | payer MEDICARE ==
[~2023-12-11] MED LIST changes: +ALPRAZolam 0.25 MG TAB PO PRN; +ALPRAZolam 0.5 MG TAB PO PRN; +ASPIRIN 325 MG TAB PO STA; +ASPIRIN 81 MG ONE; +ATORVASTATIN 80 MG TAB PO STA; +HEPARIN SODIUM,PORCINE (1 ML) 2,500 UNIT in SODIUM CHLORIDE 0.9% 250 ML IRRIGATION PRN; +HEPARIN SODIUM,PORCINE 10,000 UNIT in SODIUM CHLORIDE 0.9% 1,000 ML IRRIGATION PRN; +IOPAMIDOL-370 100ML BTL INJ ONE; +LIDOCAINE 1% INJ 10MG/ML (30 ML VIAL-PF) SQ ONE; -MAGNESIUM HYDROXIDE 2,400 MG/10 ML CUP PO PRN; +MIDAZOLAM 2 MG/2 ML VIAL IVP ONE; -NALOXONE 0.4 MG/ML 1 ML VIAL IV PRN; +NITROGLYCERIN SL TABS 0.4 MG TAB SUBLINGUAL PRN; -ONDANSETRON 4 MG/2 ML VIAL IVP PRN; +SODIUM CHLORIDE 0.9% 1,000 ML in EMPTY BAG 1 BAG IV ONE; +fentaNYL (PF) 50 MCG/ML 2 ML AMP IVP ONE
[2023-12-11 09:18] VITALS: RESP 18; TEMP 97.8
--- NOTE | 2023-12-11 11:52 | CC ---
CARDIAC CATHETERIZATION REPORT INDICATIONS: Unstable angina. This 83-year-old gentleman with history of coronary artery disease status post angioplasty of the proximal LAD, who presented to me with progressively worsening shortness of breath which we thought was anginal equivalent. I did a stress test on him that did not reveal any ischemia in the LAD distribution, but there was a new significant inferior wall defect. Due to this, I advised him to undergo cardiac catheterization for further evaluation. The patient was explained of risks, benefits, and alternatives, understood and accepted. PROCEDURE NOTE: After obtaining informed consent, left heart catheterization and coronary angiogram were performed via the right femoral artery using standard Napoleon catheters. We did not do a radial catheterization as we had problems doing radial catheterization last time because of a very tortuous subclavian artery. He has very tortuous iliac vessels also. Due to this, I used a long 23 cm length sheet to perform the cardiac catheterization. Procedure was completed uneventfully. Received moderate conscious sedation. Total sedation time was 20 minutes. A femoral angiogram was performed, but the site of entry into the femoral arteries below the bifurcation. Due to this, we opted for manual hemostasis. FINDINGS: 1. Hemodynamics: Central aortic pressure 130/70 mm. 2. Left Ventriculogram: Not performed. 3. Angiographic Data: a.Right Coronary Artery: Right coronary artery is a large dominant vessel that shows mild nonobstructive disease. b.Left main coronary artery appears calcified but is free of significant disease, divides into left anterior descending coronary artery and circumflex coronary artery. LAD was previously stented in the proximal portion. The stent appears patent. Distal to the stent, there is mild nonobstructive disease. There is a large caliber diagonal branch that has a 50% stenosis. Circumflex coronary artery is a nondominant vessel that shows [id number] nonobstructive disease. CONCLUSIONS: Patent stent within the LAD, 50% disease within the diagonal branch. Mild nonobstructive disease involving the circumflex coronary artery and right coronary artery. PLAN: I reviewed angiographic data with Dr. Beckman, the on-call media supervisor, and we decided on medical therapy at this time. The patient does not have any angina and it is difficult to explain his shortness of breath based on the angiographic data. MMODL / IJN: [id number] /
[2023-12-11 17:03] VITALS: BP 148/76; PULSE 48
== END | disposition home or self-care (01) ==
LOC: CATHCVL 08:54
PROVIDERS: ATTEND Internal Medicine Cardiovascular Disease
DX: I25.110 Atherosclerotic heart disease of native coronary artery with unstable angina pectoris (principal); Z95.5 Presence of coronary angioplasty implant and graft
CPT/HCPCS: 93454; 99152; C1769 ×2; C1894; J2250; J2001; J3010; Q9967

== ENCOUNTER 2024-06-15 16:53 | Emergency (ER) | payer MEDICARE ==
[2024-06-15 17:26] VITALS: TEMP 97.6
--- NOTE | 2024-06-15 17:56 | ED ---
General Adult HPI - General Source: patient, family, RN notes reviewed Limitations: physical limitation <Letitia Dixon - Last Filed: 06/15/24 18:18> - General Source: RN notes reviewed, old records reviewed Limitations: no limitations, physical limitation - History of Present Illness -: hour(s) Location: head, left, right, lower extremity Radiation: non-radiation Quality: stabbing, aching Consistency: constant, intermittent Improves with: none Worsens with: none Associated Symptoms: denies other symptoms <Theodore Hunter - Last Filed: 06/22/24 03:16> - General Chief complaint: Chest Pain Stated complaint: Fall on thinner-R knee Time Seen by Provider: 06/15/24 17:10 - History of Present Illness Initial comments: Quick note- 83 year old male with syncopal event and fall. States that he will occasionally pass out and he fell himself to the ground and hit his knees. Patient's daughter at bedside states that he was unresponsive for roughly 1 minute. Currently patient is stating that he has shortness of breath. Is on eliquis. (eLtitia Dixon) This is an 83-year-old male after a fall. Patient thinks he may have passed out but unsure his knee pain chest pain and did not hit his head. Patient is on Eliquis (Theodore Hunter) - Related Data Home Medications Medication Instructions Recorded Confirmed Atorvastatin [Lipitor] 80 mg PO HS 05/06/19 12/10/23 Furosemide [Lasix] 40 mg PO DAILY 09/15/20 12/10/23 Aspirin 81 mg PO DAILY 12/10/23 12/10/23 Eliquis(Unknown Dose) 1 tab PO BID 12/10/23 12/11/23 Lidocaine Patch 1 dose TOPICAL DAILY 12/10/23 amLODIPine [Norvasc] 5 mg PO DAILY 12/10/23 12/10/23 lisinopriL [Zestril] 2.5 mg PO DAILY 12/10/23 12/10/23 Previous Rx's Medication Instructions Recorded Ferrous Sulfate [Iron (65 MG 325 mg PO DAILY #30 tab 05/15/20 Elemental)] Allergies Allergy/AdvReac Type Severity Reaction Status Date / Time No Known Allergies Allergy Verified 06/15/24 17:26 Review of Systems ROS Other: All systems not noted in ROS Statement are negative. <Letitia Dixon - Last Filed: 06/15/24 18:18> ROS Other: All systems not noted in ROS Statement are negative. <Theodoer Hunter - Last Filed: 06/22/24 03:16> ROS Statement: Those systems with pertinent positive or pertinent negative responses have been documented in the HPI. Past Medical History Past Medical History: Coronary Artery Disease (CAD), Heart Failure, Deep Vein Thrombosis (DVT), Hyperlipidemia, Hypertension, Osteoarthritis (OA), Pneumonia, Prostate Disorder, Pulmonary Embolus (PE), Renal Disease Additional Past Medical History / Comment(s): recurrent UTIs,UTI with sepsis, bladder stones and kidney stones, mild decreased kidney function, DVT,PE after knee surg. years ago, chronic anemia, chronic low back pain, neuropathy R foot, recent SOB w/exertion, recent stress test History of Any Multi-Drug Resistant Organisms: ESBL Date of last positivie culture/infection: 09/22/23 MDRO Source:: URINE Past Surgical History: Appendectomy, Heart Catheterization, Heart Catheterization With Stent, Joint Replacement, Prostate Surgery Additional Past Surgical History / Comment(s): lithotripsy, Bladder stone removal, TURP, colonoscopy, left hip replaced Past Anesthesia/Blood Transfusion Reactions: No Reported Reaction Date of Last Stent Placement:: January 2019 Past Psychological History: No Psychological Hx Reported Smoking Status: Never smoker - Past Family History Father Family Medical History: No Reported History Additional Family Medical History / Comment(s): Father was healthy and lived to be 95 yrs old. Mother Family Medical History: No Reported History Additional Family Medical History / Comment(s): . <Letitia Dixon - Last Filed: 06/15/24 18:18> General Exam Limitations: physical limitation <Letitia Dixon - Last Filed: 06/15/24 18:18> General appearance: alert, in no apparent distress Head exam: Present: atraumatic, normocephalic, normal inspection Eye exam: Present: normal appearance, PERRL, EOMI. Absent: scleral icterus, conjunctival injection, periorbital swelling ENT exam: Present: normal exam, mucous membranes moist Neck exam: Present: normal inspection. Absent: tenderness, meningismus, lymphadenopathy Respiratory exam: Present: normal lung sounds bilaterally. Absent: respiratory distress, wheezes, rales, rhonchi, stridor Cardiovascular Exam: Present: regular rate, normal rhythm, normal heart sounds. Absent: systolic murmur, diastolic murmur, rubs, gallop, clicks GI/Abdominal exam: Present: soft, normal bowel sounds. Absent: distended, tenderness, guarding, rebound, rigid Extremities exam: Present: normal inspection, full ROM, normal capillary refill. Absent: tenderness, pedal edema, joint swelling, calf tenderness Back exam: Present: normal inspection Neurological exam: Present: alert, oriented X3, CN II-XII intact Psychiatric exam: Present: normal affect, normal mood Skin exam: Present: warm, dry, intact, normal color. Absent: rash <Theodore Hunter - Last Filed: 06/22/24 03:16> - General Exam Comments Initial Comments: Visual Physical Exam Vital signs reviewed General: Well-appearing, nontoxic, no acute distress. Head: Normocephalic, atraumatic Eyes: PERRLA, EOMI ENT: Airway patent Chest: Nonlabored breathing Skin: No visual rash, normal skin tone Neuro: Alert and oriented 3 Musculoskeletal: No gross abnormalities (Stieler,Letitia) Course <Theodore Hunter - Last Filed: 06/22/24 03:16> Vital Signs 06/15/24 06/15/24 06/15/24 17:22 21:32 21:52 Temperature 97.6 F Pulse Rate 54 L 54 L 58 L Respiratory 18 16 16 Rate Blood Pressure 126/75 137/92 143/78 O2 Sat by Pulse 97 100 97 Oximetry - Reevaluation(s) Reevaluation #1: Records reviewed (Theodore Hunter) Reevaluation #2: Symptoms unchanged (Theodore Hunter) Reevaluation #3: Patient informed of results and questions answered (Theodore Hunter) Reevaluation #4: Was pt. sent in by a medical professional or institution (, PA, SERVICE GIRL, urgent care, hospital, or half-way...) When possible be specific @ -no Did you speak to anyone other than the patient for history (EMS, parent, family, police, friend...)? What history was obtained from this source @ -no Did you review nursing and triage notes (agree or disagree)? Why? @ -agree Are old charts reviewed (outside hosp., previous admission, EMS record, old EKG, old radiological studies, urgent care reports/EKG's, half-way records)? Report findings @ -yes Differential Diagnosis (chest pain, altered mental status, abdominal pain women, abdominal pain men, vaginal bleeding, weakness, fever, dyspnea, syncope, headache, dizziness, GI bleed, back pain, seizure, CVA, palpatations, mental health, musculoskeletal)? @ -prior EKG interpreted by me (3pts min.). @ -yes X-rays interpreted by me (1pt min.). @ -yes negative for acute disease CT interpreted by me (1pt min.). @ -Chest negative for acute disease U/S interpreted by me (1pt. min.). @ -no What testing was considered but not performed or refused? (CT, X-rays, U/S, labs)? Why? @ -none What meds were considered but not given or refused? Why? @ -none Did you discuss the management of the patient with other professionals (professionals i.e. , PA, SERVICE GIRL, lab, RT, psych nurse, social work faculty member, safe and vault installer, teacher, executive officer special warfare team, catalytic case operator)? Give summary @ -no Was smoking cessation discussed for >3mins.? @ -no Was critical care preformed (if so, how long)? @ -no Were there social determinants of health that impacted care today? How? (Homelessness, low income, unemployed, alcoholism, drug addiction, transportation, low edu. Level, literacy, decrease access to med. care, [facility], rehab)? @ -none Was there de-escalation of care discussed even if they declined (Discuss DNR or withdrawal of care, Hospice)? DNR status @ -no What co-morbidities impacted this encounter? (DM, HTN, Smoking, COPD, CAD, Cancer, CVA, ARF, Chemo, Hep., AIDS, mental health diagnosis, sleep apnea, morbid obesity)? @ -none Was patient admitted / discharged? Hospital course, mention meds given and route, prescriptions, significant lab abnormalities, going to OR and other pertinent info. @ - 83 male with a fall. No acute traumatic injury noted here in the ER patient feels well can be discharged home Discharge Undiagnosed new problem with uncertain prognosis? @ -no Drug Therapy requiring intensive monitoring for toxicity (Heparin, Nitro, Insulin, Cardizem)? @ -no Were any procedures done? @ -no Diagnosis/symptom? @ -FAll Acute, or Chronic, or Acute on Chronic? @ -Acute Uncomplicated (without systemic symptoms) or Complicated (systemic symptoms)? @ -Complicated Side effects of treatment? @ -no Exacerbation, Progression, or Severe Exacerbation? @ -exacerbation Poses a threat to life or bodily function? How? (Chest pain, USA, ID, pneumonia, PE, COPD, DKA, ARF, appy, cholecystitis, CVA, Diverticulitis, Homicidal, Suicidal, threat to staff... and all critical care pts) @ -yes extremes of age (Theodore Hunter) EKG Findings - EKG Comments: EKG Findings:: EKG is A-fib 59 QRS 117 QTc 496 - EKG Results: EKG: interpreted by ERMD <Theodore Hunter - Last Filed: 06/22/24 03:16> Medical Decision Making <Letitia Dixon - Last Filed: 06/15/24 18:18> - Lab Data Result diagrams: 06/15/24 18:51 06/15/24 18:51 - EKG Data -: EKG Interpreted by Me - Radiology Data Radiology results: report reviewed (CT brain chest and the x-ray negative for acute traumatic injury), image reviewed <Theodore Hunter - Last Filed: 06/22/24 03:16> - Medical Decision Making I completed the quick note portion of this chart signed Letitia Dixon PA-C (Letitia Dixon) 83 male with a fall. No acute traumatic injury noted here in the ER patient feels well can be discharged home (Theodore Hunter) - Lab Data Lab Results 06/15/24 06/15/24 06/15/24 Range/Units 18:51 18:51 18:51 WBC 6.8 (3.8-10.6) k/uL RBC 3.70 L (4.30-5.90) m/uL Hgb 11.9 L (13.0-17.5) gm/dL Hct 36.6 L (39.0-53.0) % MCV 99.0 (80.0-100.0) fL MCH 32.1 (25.0-35.0) pg MCHC 32.4 (31.0-37.0) g/dL RDW 13.9 (11.5-15.5) % Plt Count 171 (150-450) k/uL MPV 8.2 Neutrophils % 70 % Lymphocytes % 18 % Monocytes % 8 % Eosinophils % 2 % Basophils % 0 % Neutrophils # 4.8 (1.3-7.7) k/uL Lymphocytes # 1.2 (1.0-4.8) k/uL Monocytes # 0.5 (0-1.0) k/uL Eosinophils # 0.1 (0-0.7) k/uL Basophils # 0.0 (0-0.2) k/uL PT 14.4 H (10.0-12.5) sec INR 1.4 H (<1.2) APTT 28.0 (22.0-30.0) sec Sodium 144 (137-145) mmol/L Potassium 4.9 (3.5-5.1) mmol/L Chloride 110 H (98-107) mmol/L Carbon Dioxide 25 (22-30) mmol/L Anion Gap 9 mmol/L BUN 41 H (9-20) mg/dL Creatinine 1.71 H (0.66-1.25) mg/dL Est GFR (CKD-EPI)AfAm 42 (>60 ml/min/1.73 sqM) Est GFR (CKD-EPI)NonAf 36 (>60 ml/min/1.73 sqM) Glucose 88 (74-99) mg/dL Calcium 9.5 (8.4-10.2) mg/dL Magnesium 2.4 H (1.6-2.3) mg/dL Total Bilirubin 1.7 H (0.2-1.3) mg/dL AST 36 (17-59) U/L ALT 24 (4-49) U/L Alkaline Phosphatase 69 (38-126) U/L Troponin I (0.000-0.034) ng/mL Total Protein 7.2 (6.3-8.2) g/dL Albumin 4.4 (3.5-5.0) g/dL 06/15/24 Range/Units 18:51 WBC (3.8-10.6) k/uL RBC (4.30-5.90) m/uL Hgb (13.0-17.5) gm/dL Hct (39.0-53.0) % MCV (80.0-100.0) fL MCH (25.0-35.0) pg MCHC (31.0-37.0) g/dL RDW (11.5-15.5) % Plt Count (150-450) k/uL MPV Neutrophils % % Lymphocytes % % Monocytes % % Eosinophils % % Basophils % % Neutrophils # (1.3-7.7) k/uL Lymphocytes # (1.0-4.8) k/uL Monocytes # (0-1.0) k/uL Eosinophils # (0-0.7) k/uL Basophils # (0-0.2) k/uL PT (10.0-12.5) sec INR (<1.2) APTT (22.0-30.0) sec Sodium (137-145) mmol/L Potassium (3.5-5.1) mmol/L Chloride (98-107) mmol/L Carbon Dioxide (22-30) mmol/L Anion Gap mmol/L BUN (9-20) mg/dL Creatinine (0.66-1.25) mg/dL Est GFR (CKD-EPI)AfAm (>60 ml/min/1.73 sqM) Est GFR (CKD-EPI)NonAf (>60 ml/min/1.73 sqM) Glucose (74-99) mg/dL Calcium (8.4-10.2) mg/dL Magnesium (1.6-2.3) mg/dL Total Bilirubin (0.2-1.3) mg/dL AST (17-59) U/L ALT (4-49) U/L Alkaline Phosphatase (38-126) U/L Troponin I 0.059 H* (0.000-0.034) ng/mL Total Protein (6.3-8.2) g/dL Albumin (3.5-5.0) g/dL Disposition <Letitia Dixon - Last Filed: 06/15/24 18:18> Is patient prescribed a controlled substance at d/c from ED?: No Time of Disposition: 21:40 <Theodore Hunter - Last Filed: 06/22/24 03:16> Clinical Impression: Fall, Weakness, Head injury, Syncope Disposition: HOME SELF-CARE Condition: Good Instructions (If sedation given, give patient instructions): Fall Prevention for Older Adults (ED) Referrals: Viola Kamara [Primary Care Provider] - 1-2 days
[2024-06-15 19:00] LABS: Basophils % (A) 0 %; Eosinophils # (A) 0.1 k/uL (0-0.7); Eosinophils % (A) 2 %; HCT 36.6 % (39.0-53.0); HGB 11.9 gm/dL (13.0-17.5); Lymphocytes # (A) 1.2 k/uL (1.0-4.8); Lymphocytes % (A) 18 %; MCH 32.1 pg (25.0-35.0); MCHC 32.4 g/dL (31.0-37.0); Mean Platelet Volume 8.2; Monocytes # (A) 0.5 k/uL (0-1.0); Monocytes % (A) 8 %; Neutrophils # (A) 4.8 k/uL (1.3-7.7); Neutrophils % (A) 70 %; Platelet Count 171 k/uL (150-450); RDW 13.9 % (11.5-15.5); WBC 6.8 k/uL (3.8-10.6)
--- NOTE | 2024-06-15 19:09 | CT ---
EXAMINATION TYPE: CT brain wo con CT DLP: 1095.5 mGycm, Automated exposure control for dose reduction was used. DATE OF EXAM: 06/15/2024 7:04 PM COMPARISON: 09/22/2023. CLINICAL INDICATION:Male, 83 years old with history of syncope, fall, fell today/landed on his knees TECHNIQUE: Brain: Axial CT images of the brain were obtained with coronal and sagittal reformats created and rev iewed. Contrast used: None. Oral contrast used: None. FINDINGS: Brain: Extra-axial spaces: No abnormal extra-axial fluid collections. Ventricular system: Dilatation in proportion to cerebral atrophy. Cerebral parenchyma: Cerebral atrophy. No acute intraparenchymal hemorrhage or mass effect. The nuno -white junction is well differentiated. Scattered hypoattenuating areas are seen within the white mat ter. Cerebellum: Unremarkable. Mass effect: No evidence of midline shift. Intracranial vasculature: unremarkable Soft tissues: Normal. Calvarium/osseous structures: No depressed skull fracture. Paranasal sinuses and mastoid air cells: Mild scattered paranasal sinus disease. Visualized orbits: Bilateral aphakia IMPRESSION: 1. No acute intracranial process. 2. Nonspecific white matter changes, likely secondary to chronic small vessel ischemic disease.
[2024-06-15 19:11] LABS: ALT 24 U/L (4-49); AST 36 U/L (17-59); African American GFR (CKD) 42 (>60 ml/min/1.73 sqM); Albumin 4.4 g/dL (3.5-5.0); Alkaline Phosphatase 69 U/L (38-126); Anion Gap 9 mmol/L; Blood Urea Nitrogen 41 mg/dL (9-20); Calcium 9.5 mg/dL (8.4-10.2); Carbon Dioxide 25 mmol/L (22-30); Chloride 110 mmol/L (98-107); Glucose 88 mg/dL (74-99); INR 1.4 (<1.2); Magnesium 2.4 mg/dL (1.6-2.3); Non-African American GFR(CKD) 36 (>60 ml/min/1.73 sqM); Potassium 4.9 mmol/L (3.5-5.1); Prothrombin Time 14.4 sec (10.0-12.5); Sodium 144 mmol/L (137-145); Total Bilirubin 1.7 mg/dL (0.2-1.3); Total Protein 7.2 g/dL (6.3-8.2)
--- NOTE | 2024-06-15 19:18 | XR ---
EXAMINATION TYPE: XR chest 2V DATE OF EXAM: 06/15/2024 6:19 PM CLINICAL INDICATION:Male, 83 years old with history of syncope; [facility] COMPARISON: Chest radiographs from 11/15/2023 TECHNIQUE: XR chest 2V Frontal view of the chest. FINDINGS: Lungs/Pleura: There is no evidence of pleural effusion, focal consolidation, or pneumothorax. Pulmonary vascularity: Unremarkable. Heart/mediastinum: Cardiomediastinal silhouette is unremarkable. Musculoskeletal: Degenerative changes of the shoulder joints. Other findings: None IMPRESSION: No acute cardiopulmonary disease/process.
--- NOTE | 2024-06-15 19:19 | XR ---
EXAMINATION TYPE: XR knee complete bilateral DATE OF EXAM: 06/15/2024 6:19 PM CLINICAL INDICATION:Male, 83 years old with history of fall, pain; [facility] COMPARISON: None. TECHNIQUE: XR knee complete bilateral; examined in Frontal, lateral and oblique projections. FINDINGS: No evidence of any acute osseous pathology, soft tissue swelling, or joint effusion is no ruben. Tricompartmental osteophyte formation involving the femoral condyles, tibial plateau and patella . Mild joint space narrowing. A fabella is present bilaterally. Calcifications along the quadriceps i nsertion onto the patella on the right. Enthesophyte formation of the left. IMPRESSION: 1. No acute osseous pathology. 2. Moderate to severe tricompartmental osteoarthritic changes bilaterally.
[2024-06-15 21:33] VITALS: RESP 16
[2024-06-15 21:53] VITALS: BP 143/78; PULSE 58
== END 2024-06-15 21:53 | disposition home or self-care (01) ==
LOC: EC 16:53
DX: S09.90XA Unspecified injury of head, initial encounter (principal); R55 Syncope and collapse; R53.1 Weakness; W22.8XXA Striking against or struck by other objects, initial encounter
CPT/HCPCS: 36415; 70450; 71046; 80053; 83735; 84484; 85025; 85610; 85730; 93005; 99285

== ENCOUNTER 2024-07-08 23:10 | Inpatient (IN) | payer MEDICARE ==
[~2024-07-08 23:10] MED LIST changes: +ACETAMINOPHEN TAB 500 MG TAB ONE; -ALPRAZolam 0.25 MG TAB PO PRN; -ALPRAZolam 0.5 MG TAB PO PRN; +APIXABAN 2.5 MG TABLET ONE; -ASPIRIN 325 MG TAB PO STA; -ASPIRIN 81 MG ONE; -ATORVASTATIN 80 MG TAB PO STA; +CALCIUM GLUCONATE IN NACL 100 ML IVPB ONE; -HEPARIN SODIUM,PORCINE (1 ML) 2,500 UNIT in SODIUM CHLORIDE 0.9% 250 ML IRRIGATION PRN; -HEPARIN SODIUM,PORCINE 10,000 UNIT in SODIUM CHLORIDE 0.9% 1,000 ML IRRIGATION PRN; -IOPAMIDOL-370 100ML BTL INJ ONE; -LIDOCAINE 1% INJ 10MG/ML (30 ML VIAL-PF) SQ ONE; -MIDAZOLAM 2 MG/2 ML VIAL IVP ONE; -NITROGLYCERIN SL TABS 0.4 MG TAB SUBLINGUAL PRN; +ORPHENADRINE 30 MG/ML 2 ML VIAL ONE; -SODIUM CHLORIDE 0.9% 1,000 ML in EMPTY BAG 1 BAG IV ONE; +SODIUM ZIRCONIUM CYCLOSILICATE 10 GM PACKET ONE; -fentaNYL (PF) 50 MCG/ML 2 ML AMP IVP ONE; +tiZANidine 4 MG TAB ONE
[2024-07-09] MEDS ORDERED: ACETAMINOPHEN TAB 325 MG TAB ONE (09:16)
[2024-07-09] MEDS ORDERED: APIXABAN 5 MG TAB ONE (09:39)
[2024-07-09] MEDS ORDERED: ASPIRIN 81 MG ONE (09:41)
[2024-07-09] MEDS ORDERED: ASPIRIN 325 MG TAB ONE (09:41)
[2024-07-09] MEDS ORDERED: APIXABAN 2.5 MG TABLET ONE ×2 (09:49→20:05)
[2024-07-09] MEDS ORDERED: CYCLOBENZAPRINE 10 MG TAB ONE (20:05)
[2024-07-09] MEDS ORDERED: ATORVASTATIN 40 MG TAB ONE (20:05)
[2024-07-10] MEDS ORDERED: ASPIRIN 81 MG ONE (09:13)
[2024-07-10] MEDS ORDERED: APIXABAN 2.5 MG TABLET ONE (09:13)
--- NOTE | 2024-07-26 11:59 | CT ---
Rafiq Cook : 1940 EXAMINATION TYPE: CT head without contrast CTA head and neck DATE OF EXAM: 07/08/2024 COMPARISON: None available during downtime HISTORY: 83-year-old male CVA, left-sided weakness and pain TECHNIQUE: CT of the brain without contrast. Coronal and sagittal reconstructions performed. Subseque nt scanning of the head and neck following administration of 65 mL Isovue 370 IV contrast. Coronal an d sagittal reconstructions performed. 3-D reconstructions generated on a dedicated independent workst [employer]. CT DLP: 1600.2 mGycm Automated exposure control for dose reduction was used. FINDINGS: Brain: No evidence for acute intracranial hemorrhage, acute ischemic change, mass, mass effect, midline shif t, or extra-axial fluid collection. There is mild ventricular prominence likely due to central cerebr al atrophy. No effacement of cerebral sulci or basal subarachnoid cisterns. Granda-white matter differe ntiation is preserved. Rightward nasal septal deviation. Paranasal sinuses and mastoid air cells are well pneumatized. Orbit s and globes are intact. CTA NECK: Mild atherosclerotic calcifications at the aortic arch. Conventional arch vessel branching anatomy. T ortuous brachiocephalic artery. There is moderate atherosclerotic narrowing at the origin of the righ t subclavian artery. Otherwise, the right vertebral artery is slightly more dominant but both are patent throughout their course. The bilateral common and bilateral internal carotid arteries are widely patent. Only minimal scattere d atherosclerotic calcifications are present throughout. NASCET criteria was utilized. Moderate to advanced spondylotic change throughout the cervical spine. Degenerative grade 1 anterolis thesis C4-C5. No high-grade canal compromise seen. Hypertrophic facet and uncovertebral joint arthrop athy. Moderate to severe left neuroforaminal stenosis at C3-C4. Very minimal moderate neural foramina l stenoses elsewhere throughout the cervical spine. There is a 1.2 cm calcification in the right submandibular space, possible large sialolith. No inflam matory changes are seen here. CTA brain: The V4 segment left vertebral artery becomes slightly more hypoplastic. There is focal calcification in midportion of the basilar artery causing a mild stenosis. No significant narrowing of either verte bral basilar arteries otherwise seen. Remainder of the posterior circulation is patent. Anatomic variation with a hypoplastic left transverse sinus. Otherwise, dural venous sinuses are patrick nt. Atherosclerotic calcifications in the bilateral carotid siphons. There is segmental mild stenosis in the supraclinoid ICAs on both sides. No significant narrowing. Remainder of the anterior circulation is patent. No aneurysmal change is seen. IMPRESSION: BRAIN: 1. Mild central cerebral atrophy. No acute intracranial abnormality seen. Some anatomic variation wit h a hypoplastic left transverse sinus. CTA NECK: 2. Moderate stenosis at the origin of the right subclavian artery. 3. Slightly dominant right vertebral artery. 4. No significant stenosis of either vertebral or carotid arteries. 5. Moderate to advanced spondylotic change throughout the cervical spine. Moderate to severe left az roforaminal stenosis at C3-C4. Variable moderate neural foraminal narrowing elsewhere throughout the cervical spine. 6. A 1.2 cm calcification right submandibular space, possible large sialolith. No inflammatory change s are seen here. CTA HEAD: 7. No large vessel intracranial arterial occlusion, significant stenosis, or aneurysmal change is see n.
--- NOTE | 2024-07-26 12:47 | CT ---
EXAM: CT abdomen pelvis without contrast. DATE OF EXAM: 07/08/2024 INDICATION: Patient age:SHERIN WIN : 1940; Reason for study: WEAKNESS COMPARISON: None, please note PACS downtime occurred during the radiologist interpretation of these i mages with limited priors/reports. . TECHNIQUE: CT abdomen pelvis, with axial imaging and sagittal and coronal reformats without IV or oral contrast. Lack of IV or oral contrast limits evaluation of solid and hollow organ viscera.. One or more CT dos e reduction strategies were utilized during this examination. Total DLP administered was 1169.4 mGyc m. FINDINGS: LOWER CHEST: The heart is enlarged for size. Elevated left diaphragm. ABDOMEN LIVER: Scattered hepatic cysts present GALLBLADDER AND BILE DUCTS: Unremarkable. PANCREAS: Unremarkable. SPLEEN: Unremarkable. ADRENAL GLANDS: Unremarkable. KIDNEYS AND URETERS: No evidence of hydronephrosis or renal calculus. The ureters are unremarkable. R ight renal cortical cyst. PELVIS BLADDER: Trabeculations in the wall. REPRODUCTIVE: Prostatomegaly with TURP surgical changes ABDOMEN & PELVIS STOMACH AND BOWEL: Stomach and duodenum are unremarkable. No evidence of bowel obstruction. PERITONEUM: No evidence of pneumoperitoneum or free fluid. VASCULATURE: Moderate atherosclerotic calcifications are present throughout the abdominal aorta and i ts branches. MUSCULOSKELETAL: Moderate disc degeneration changes are present throughout the thoracolumbar spine. L eft hip arthroplasty with hardware intact. LYMPH NODES: No gross evidence for lymphadenopathy. SOFT TISSUE/ABDOMINAL WALL: Unremarkable IMPRESSION: Motion limited exam. No evidence for acute process. 1. Post TURP changes to the prostate gland. 2. Trabeculations of the bladder wall compatible with chronic bladder outlet obstruction changes. 3. Simple hepatic and right renal cortical cysts.
--- NOTE | 2024-08-06 20:05 | MR ---
Rafiq Cook : 1940 EXAM: MRI brain without contrast MRI cervical spine without contrast DATE: 07/19/2024 CLINICAL HISTORY: 83-year-old male with left arm weakness and pain TECHNIQUE: Multiplanar, multisequence imaging of the brain followed by the cervical spine is performe d without IV contrast. Diffusion-weighted imaging is performed. COMPARISON: None available during downtime FINDINGS: BRAIN: No evidence for acute infarction, hemorrhage, mass, mass effect, midline shift, herniation, effacemen t of basal cisterns, or extra-axial fluid collection. There is cxqi-ab-tbrdeszt ventriculomegaly, Jordan's ratio calculated at 0.37. Mild volume loss overlyi ng the bilateral cerebral convexities. Major intracranial flow voids are intact. No significant white matter signal abnormality. Midline structures demonstrate normal morphology. The craniocervical junction is normal. Trace mucosal thickening ethmoid air cells. Globes are intact. CERVICAL SPINE: No craniocervical junction abnormalities, predental space widening, or prevertebral soft tissue swell ing. There is moderate disc/endplate degenerative change throughout greatest in the lower cervical spine f rom C5 through C7 levels. Desiccated, narrowed discs with disc osteophyte complex formation. Ligamentum flavum thickening particularly at C2-C3 but also lesser extent throughout the remainder of the cervical spine. There is reversal of the normal cervical lordosis with degenerative grade 1 anterolisthesis at C4-C5. Remaining alignment is maintained. Heterogeneous marrow signal relating to degenerative endplate change including edematous Modic type I endplate change at C5-C6 and C6-C7. Uncovertebral joint and facet arthropathy is present. Changes result in moderate narrowing of the spinal canal at C2-C3 with thickened ligamentum flavum ab utting and mildly flattening the dorsal cord. Disc osteophyte complexes contributing to mild narrowing of the spinal canal at C4-C5, C5-C6, C6-C7. No high-grade canal compromise. At C2-C3, changes result in severe right and moderate to severe left neural foraminal stenosis. At C3-C4, changes result in moderate right greater than left neuroforaminal stenosis. At C4-C5, changes result in moderate left and mild right neuroforaminal stenosis. At C5-C6, results in severe bilateral neuroforaminal stenosis. At C6-7, changes result in severe left and moderate right neural foraminal stenosis. COMBINED IMPRESSION: BRAIN: 1. MODERATE CEREBRAL ATROPHY. VENTRICULOMEGALY PROBABLY ON AN EX VACUO BASIS FROM CENTRAL VOLUME LOSS . CORRELATE TO EXCLUDE A COMPONENT OF NPH. 2. OTHERWISE, NO ACUTE INTRACRANIAL ABNORMALITY SEEN. CERVICAL SPINE: 3. Moderate to advanced multilevel spondylotic change with reversal of the normal cervical lordosis a nd degenerative grade 1 anterolisthesis at C4-C5. 4. Moderate narrowing of the spinal canal at C2-C3 with abutment and flattening of the dorsal cord bu t no cord compression or myelopathic cord signal change. Mild spinal canal stenoses from C4 through C 7 levels. 5. Variable neuroforaminal stenoses as outlined above, severe on both sides at C5-C6. Severe on the l eft at C6-C7.
--- NOTE | 2024-08-18 09:40 | XR ---
Patient: Rafiq CookLela Ordering Physician: Unknown, Unknown ID: [id number] Phone, Pager: Phone : N/A Pager: N/A : 1940 Age/Gender: 83Y, M Primary Location: N/A Procedure: XR HUMERUS LT [place] Date: 07/08/2024 5:17:25 PM EXAMINATION TYPE: XR humerus LT DATE OF EXAM: 07/25/2024 11:30 AM CLINICAL INDICATION: Pain COMPARISON: None TECHNIQUE: XR humerus LT examined in frontal and lateral projections. FINDINGS: No evidence of acute osseous pathology, joint dislocation, or soft tissue swelling. The rem aining portions of the visualized chest are unremarkable. IMPRESSION: No acute osseous pathology.
--- NOTE | 2024-08-18 09:40 | XR ---
Patient: Rafiq Cook Lela Ordering Physician: Unknown, Unknown ID: [id number] Phone, Pager: Phone : N/A Pager: N/A : 1940 Age/Gender: 83Y, M Primary Location: N/A Procedure: XR SHOULDER LT [facility] Date: 07/08/2024 5:15:04 PM EXAMINATION TYPE: XR shoulder complete LT DATE OF EXAM: 07/25/2024 11:27 AM CLINICAL INDICATION: Pain COMPARISON: None TECHNIQUE: XR shoulder complete LT; examined in AP, internally rotated and scapular Y projections. FINDINGS: No evidence of acute osseous pathology, joint dislocation, or soft tissue swelling. The remaining po rtions of the visualized chest are unremarkable. Degeneration changes of the acromion, distal clavic le with osteophyte formation. There is osteophyte formation of the glenoid and humeral head. There is joint space narrowing of glenohumeral joint. Acetabularization of the acromion and high riding humer al head. IMPRESSION: 1. No acute osseous pathology. 2. Mild shoulder osteoarthrosis. 3. Findings suggestive of left rotator cuff tear correlate with MRI.
--- NOTE | 2024-08-18 09:41 | XR ---
Patient: Rafiq Cook Lela Ordering Physician: Unknown, Unknown ID: [id number] Phone, Pager: Phone : N/A Pager: N/A : 1940 Age/Gender: 83Y, M Primary Location: N/A Procedure: XR chest 2V Study Date: 07/08/2024 2:27:31 PM EXAMINATION TYPE: XR chest 2V DATE OF EXAM: 07/25/2024 11:23 AM CLINICAL INDICATION: Strokelike symptom COMPARISON: Chest radiographs from 06/15/2024 TECHNIQUE: XR chest 2V Frontal view of the chest. FINDINGS: Lungs/Pleura: There is no evidence of pleural effusion, focal consolidation, or pneumothorax. Pulmonary vascularity: Unremarkable. Heart/mediastinum: Cardiomediastinal silhouette is unremarkable. Musculoskeletal: No acute osseous pathology. IMPRESSION: Low lung volumes with a generalized hazy appearance which could represent atelectasis versus pulmonar y edema correlate with serum BNP.
--- NOTE | 2024-08-18 09:41 | XR ---
Patient: Rafiq CookLela Ordering Physician: Unknown, Unknown ID: [id number] Phone, Pager: Phone : N/A Pager: N/A : 1940 Age/Gender: 83Y, M Primary Location: N/A Procedure: XR ELBOW LT Study Date: 07/08/2024 5:19:36 PM EXAMINATION TYPE: XR elbow complete LT DATE OF EXAM: 07/25/2024 11:31 AM CLINICAL INDICATION: Pain COMPARISON: None TECHNIQUE: XR elbow complete LT; elbow was examined in AP, lateral, and oblique projections. FINDINGS: No evidence of any acute osseous pathology, joint dislocation, or soft tissue swelling is n oted. No evidence of joint effusion is present. Severe degeneration changes of the joints of the elb ow with osteophyte formation and probable joint bodies in the elbow joint measuring up to 9 mm. IMPRESSION: 1. No evidence of acute fracture. 2. 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
== END 2024-07-10 14:24 | disposition home or self-care (01) | DRG 65 ==
LOC: DISRECOVER 23:10 → 3NCARDOBS 07-10 14:24 → UNDOADMIN 07-10 14:24 → UNDODISIN 07-10 14:24
PROVIDERS: ADMIT Internal Medicine; ATTEND Internal Medicine
DX: I63.9 Cerebral infarction, unspecified (principal); G81.94 Hemiplegia, unspecified affecting left nondominant side; J34.2 Deviated nasal septum; I65.23 Occlusion and stenosis of bilateral carotid arteries; M47.892 Other spondylosis, cervical region; M48.02 Spinal stenosis, cervical region
CPT/HCPCS: 70496; 70498; 70551; 71046; 72141; 74176; 80053; 80320; 81003; 84439; 84443; 84484; 85025; 85610; 85730; 93005; 93306; 99285

== ENCOUNTER → 2024-10-18 | Outpatient (CLI) | payer MEDICARE ==
[2024-10-18 14:23] LABS: INR 1.3 (<1.2); Partial Thromboplastin Time 29.3 sec (22.0-30.0); Prothrombin Time 13.3 sec (10.0-12.5)
[2024-10-18 19:11] LABS: HCT 38.1 % (39.6-50.0); HGB 11.9 g/dL (13.0-17.0); MCH 29.5 pg (27.0-32.0); MCHC 31.2 g/dL (32.0-37.0); MCV 94.5 FL (80.0-97.0); Mean Platelet Volume 10.5 FL (9.5-12.2); NRBC Per 100 WBC 0 X 10*3/uL (0.00-0.01); Platelet Count 199 X 10*3/uL (140-440); RBC 4.03 X 10*6/uL (4.40-5.60); RDW 15.4 % (11.5-14.5); WBC 5.71 X 10*3/uL (4.50-10.00)
[2024-10-18 20:04] LABS: BUN/Creat Ratio 23.43 Ratio (12.00-20.00); Blood Urea Nitrogen 32.8 mg/dL (9.0-27.0); Chloride 108 mmol/L (96-109); Glucose 90 mg/dL (70-110); Potassium 4.5 mmol/L (3.5-5.5); Sodium 143 mmol/L (135-145)
[2024-10-18 20:05] LABS: ALT 28 U/L (10-49); AST 31 U/L (14-35); Albumin 4.2 g/dL (3.8-4.9); Alkaline Phosphatase 83 U/L (41-126); Calcium 9.3 mg/dL (8.7-10.3); Carbon Dioxide 23.3 mmol/L (21.6-31.8); Globulin 2.8 g/dL (1.6-3.3); Total Bilirubin 1.1 mg/dL (0.3-1.2)
== END | disposition home or self-care (01) ==
LOC: LABPAT 12:40
PROVIDERS: ATTEND Orthopaedic Surgery
DX: Z01.818 Encounter for other preprocedural examination (principal); I45.10 Unspecified right bundle-branch block; I44.4 Left anterior fascicular block; I45.2 Bifascicular block; I48.91 Unspecified atrial fibrillation; R94.31 Abnormal electrocardiogram [ECG] [EKG]
CPT/HCPCS: 80053; 85027; 85610; 85730; 86850; 86900; 86901; 87070; 93005

== ENCOUNTER 2024-10-26 11:28 | Observation (INO) | payer MEDICARE ==
[~2024-10-26 11:28] MED LIST changes: -ACETAMINOPHEN TAB 500 MG TAB ONE; -APIXABAN 2.5 MG TABLET ONE; -CALCIUM GLUCONATE IN NACL 100 ML IVPB ONE; +HYDROmorphone 0.5 MG/0.5 ML SYRINGE IVP PRN; +LIDOCAINE 1% (10MG/ML) FOR IV START INTRADERMA PRN; -ORPHENADRINE 30 MG/ML 2 ML VIAL ONE; -SODIUM ZIRCONIUM CYCLOSILICATE 10 GM PACKET ONE; +TRANEXAMIC 1,000 MG/100ML-NACL 1,000 MG in SALINE 1 100ML.BAG IVPB PRN; +fentaNYL (PF) 50 MCG/ML 2 ML AMP IVP PRN; -tiZANidine 4 MG TAB ONE
[2024-10-26] MEDS: MELOXICAM 7.5 MG TAB PO PRN (12:22)
[2024-10-26] MEDS: ACETAMINOPHEN TAB 500 MG TAB PO PRN (12:22)
[2024-10-26] MEDS: GABAPENTIN 300 MG CAP PO PRN (12:23)
[2024-10-26] MEDS: ONDANSETRON 4 MG/2 ML VIAL IVP ONE (12:38)
[2024-10-26] MEDS: LACTATED RINGERS 1,000 ML IV SCH (12:38)
[2024-10-26] MEDS: IV FLUID CONTINUATION 1,000 ML IV ONE (12:39)
[2024-10-26] MEDS: DEXAMETHASONE SOD PHOSPHATE 4 MG/ML 1 ML VIAL IV ONE (12:39)
[2024-10-26] MEDS: MIDAZOLAM 2 MG/2 ML VIAL IV PRN (12:53)
--- NOTE | 2024-10-26 13:04 | P.ANPRN ---
Procedure Note - Anesthesia - Nerve Block Performed Right Max Single Time Out Performed: Yes Date of Procedure: 10/26/24 Procedure Start Time: 12:53 Procedure Stop Time: 13:01 Location of Patient: PreOp Indication: Acute Post-Operative Pain, Requested by Surgeon Sedation Type: Sedate with meaningful contact maintained Preparation: Sterile Prep Position: Supine Needle Types: Pajunk Needle Gauge: 21 Ultrasound used to visualize needle placement: Yes Ultrasound used to observe medication spread: Yes Injectate: 0.5% Ropivacaine (see comment for volume) (30 ml + 4 mg Dexametha sone) Blood Aspirated: No Pain Paresthesia on Injection Noted: No Resistance on Injection: Normal Image Stored and Saved: Yes Events: Uneventful and Well Tolerated
[2024-10-26] MEDS ORDERED: NALOXONE 0.4 MG/ML 1 ML VIAL IV PRN (13:15)
[2024-10-26] MEDS ORDERED: MAGNESIUM HYDROXIDE 2,400 MG/30 ML CUP PO PRN (13:15)
[2024-10-26] MEDS ORDERED: ONDANSETRON 4 MG/2 ML VIAL IVP PRN (13:15)
[2024-10-26] MEDS ORDERED: diazePAM 5 MG TAB PO PRN (13:15)
[2024-10-26] MEDS ORDERED: HYDROmorphone 0.5 MG/0.5 ML SYRINGE IVP PRN ×2 (13:15)
[2024-10-26] MEDS ORDERED: HYDROcodone/APAP 7.5-325MG 1 EACH TAB PO PRN (13:19)
[2024-10-26] MEDS ORDERED: LIDOCAINE 1% INJ 10MG/ML (20 ML MDV) ONE (13:33)
[2024-10-26] MEDS ORDERED: SUCCINYLCHOLINE CHLORIDE 200 MG/10 ML VIAL IV ONE (13:33)
[2024-10-26] MEDS ORDERED: NEOSTIGMINE 1 MG/ML 10 ML VIAL ONE (13:33)
[2024-10-26] MEDS ORDERED: ROCURONIUM 10 MG/ML (5 ML VIAL) IV ONE (13:33)
[2024-10-26] MEDS ORDERED: fentaNYL (PF) 50 MCG/ML 2 ML AMP ONE (13:33)
[2024-10-26] MEDS ORDERED: ROPIVACAINE 5 MG/ML 30 ML VIAL ONE (13:33)
[2024-10-26] MEDS ORDERED: PROPOFOL 10 MG/ML 20 ML VIAL IV ONE (13:33)
[2024-10-26] MEDS ORDERED: TRANEXAMIC 1,000 MG/100ML-NACL PREMIX BAG ONE (13:33)
[2024-10-26] MEDS ORDERED: HYDROmorphone (PF) 1 MG/ML ONE (13:33)
[2024-10-26] MEDS ORDERED: DEXAMETHASONE SOD PHOSPHATE 4 MG/ML 1 ML VIAL ONE (13:33)
[2024-10-26] MEDS ORDERED: GLYCOPYRROLATE 0.2 MG/ML 2 ML VIAL ONE (13:33)
[2024-10-26] MEDS: ROPIVACAINE 5 MG/ML 30 ML VIAL MISCELLANE ONE ×2 (14:03→14:39)
[2024-10-26] MEDS: ceFAZolin 1,000 MG in SODIUM CHLORIDE 0.9% 1,000 ML IRRIGATION ONE (14:04)
--- NOTE | 2024-10-26 14:48 | P.OP ---
Date of Procedure: 10/26/24 Preoperative Diagnosis: Severe osteoarthritis right hip Postoperative Diagnosis: Severe osteoarthritis right hip Procedure(s) Performed: Right total hip arthroplasty with a direct anterior approach Implants: [employer] Polarstem standard size 3 with a collar [employer] R3, 3 hole hemispherical acetabular shell, 52 mm [employer]hew Reflection 6.5 mm cancellus screws, 20 mm, 25 mm [employer]hew R3, XLPE 20 acetabular liner [employer] Nephew Oxinium femoral head 36 mm, -3 All components were press-fit. The articulation is Oxinium on polyethylene. Anesthesia: GETA Surgeon: Ming Byrne Laundry [employer] Counter Clerk #1: Garo Montiel Estimated Blood Loss (ml): 350 Pathology: none sent Condition: stable Disposition: PACU Indications for Procedure: After failure of conservative treatment we discussed the surgical and non surgical treatment options at length. Patient wishes to proceed with a total hip arthroplasty with a direct anterior approach. Complications specific to this procedure were discussed at length, including but not limited to infection, leg length discrepancy, dislocation, nerve injury, and fracture. Covid-19 was also discussed at length with the patient, and they are aware of the current policies and procedures. The patient was given the option of delaying surgery, but they elect to proceed knowing these risks. Patient is aware of all these complications and informed consent was obtained Operative Findings: The operative findings are consistent with severe osteoarthritis of the right hip Description of Procedure: The patient was seen and evaluated in the preoperative area and the consent was reviewed. The operative site was marked with a skin marker. The patient verified the procedure and operative site. A SRIDEVI block was placed by anesthesia in the preoperative area. The patient was then brought to the operating room and given preoperative antibiotics intravenously. 1 g of Tranexamic acid was also given intravenously. A general anesthetic was administered by the anesthesia department. The patient was then placed on the [place] table with the bony prominences well-padded. The hip area was then prepped with a ChloraPrep solution and draped in the usual sterile fashion. A universal timeout was then performed, which confirmed the patient's name, surgical site, ALLERGIES, and procedure being performed on the consent. Next the incision site was located at 1 cm distal and 4 cm lateral to the anterior superior iliac spine. The skin and subcutaneous tissues were sharply incised. Incision was carefully dissected down to the fascia overlying the tensor fascia homar muscle. This fascia was then incised in line with the muscle fibers. Care was taken to stay laterally in order to avoid injuring the lateral femoral cutaneous nerve. Next, using blunt finger dissection, the tensor fascia homar muscle was dissected off its investing fascia. The muscle was then carefully retracted laterally with a cobra retractor over the lateral neck of the femur. Next, the circumflex vessels were identified and cauterized using the Aquamantis device. The anterior hip capsule was then exposed. The capsule was then opened and an inverted T fashion. The retractors were then placed intracapsularly. The retractors were maintained intracapsular throughout the procedure. The proximal femur was then visualized. Fluoroscopic x-rays were then taken in order to evaluate the preoperative leg lengths. A small amount of traction was placed on the leg. The femoral neck was then osteotomized at the appropriate level above the lesser trochanter. A small wedge of bone was then removed from the remaining femoral head. Next, using a corkscrew the femoral head was removed from the acetabulum. On gross visual inspection, the femoral head had complete loss of articular cartilage and multiple periarticular osteophytes. The femoral head was then measured. Attention was then turned to the acetabulum. The acetabulum was exposed and any remaining labrum was excised. Sequential reaming of the acetabulum was performed using fluoroscopic guidance until there was a good bed of bleeding cancellus bone. When the appropriate size was reached, a trial was then placed. The position and fit of the trial was checked with fluoroscopy. The trial was then removed. Then, using fluoroscopic guidance, the final implant was impacted at 20 of anteversion and 40 of abduction, and fully seated in the acetabulum. 2 screws were then placed in the acetabulum. Again fluoroscopy was used to check position of the screws. Next, the liner was then impacted, with a 20 elevated liner located in the anterior superior quadrant. Component locking was confirmed. Attention was then directed to the femur. With the aid of the [place] table, the femur was externally rotated to approximately 130, extended, and adducted under the opposite leg. A side hook was then placed under the proximal femur, and the side hook elevator was used to elevate the proximal femur while releasing the capsule. Retractors were then placed. A capsular release was performed, as well as a release of the conjoined tendon, which afforded excellent visualization of the proximal femur. Next, a box osteotome was used to lateralize the proximal femur. A hand miter operator was then used to locate the femoral canal. Sequential broaching was then performed with appropriate size which afforded excellent fixation in the proximal femur. A trial was then placed with appropriate head and neck, and the hip was gently reduced with the aid of the [place] table. Fluoroscopy was then used to check position of the components, as well as to evaluate the leg lengths and offset. The leg lengths and offset were measured as closely as possible to ensure stability of the hip. The hip was then gently dislocated and the trials were then removed. Final implants were then impacted and the hip was again reduced. Final fluoroscopic x-rays confirmed that the components were in anatomic position. The leg lengths and offset were measured and were found to coincide with the trial measurements. The hip was also taken through range of motion, and found to be stable. The hip was then copiously irrigated with antibiotic solution with pulsatile lavage. The hip was then irrigated with Irrisept solution. The soft tissues were then injected with a ropivacaine solution. A second dose of 1 g of Tranexamic acid was also given intravenously. The fascia was then closed with 2-0 strata fix suture. The subcutaneous tissue was closed with 3-0 Vicryl. The subcuticular tissue was closed with 3-0 moncryl suture. The skin was then closed with Exofin skin glue. After the glue and dried, and Optifoam silver impregnated dressing was applied. The patient was t hen transferred to the recovery room in stable condition. The desk assistant ODETTE Raines was required due to the complexity of surgery, and the need for skilled licensed loan officer assistant for positioning, draping, exposure, retraction, and closure of the wound.
--- NOTE | 2024-10-26 15:00 | XR ---
EXAMINATION TYPE: XR Hip Limited RT DATE OF EXAM: 10/26/2024 COMPARISON: NONE CLINICAL INDICATION: Male, 84 years old with history of Rt Hip-Ant; TECHNIQUE: 5 view submitted. FINDINGS: There is postsurgical change compatible hip replacement surgery. IMPRESSION: 1. Postoperative change. [facility], , 10/26/2024 2:57 PM
--- NOTE | 2024-10-26 15:00 | FL ---
EXAMINATION TYPE: FL guidance operating room DATE OF EXAM: 10/26/2024 HISTORY: Fluoroscopy time Total dose area product (DAP) in uGy*m?, mGy*cm? (or similar): .18730 IMPRESSION: 1. Fluoroscopy time. [facility], , 10/26/2024 2:58 PM
--- NOTE | 2024-10-26 15:56 | XR ---
EXAMINATION TYPE: XR Hip Limited RT DATE OF EXAM: 10/26/2024 3:49 PM COMPARISON: 03/02/2019 CLINICAL INDICATION: Male, 84 years old with history of Status post hip surgery, assess surgical royer de león [facility] TECHNIQUE: XR Hip Limited RT; Frontal view FINDINGS/IMPRESSION: Post hip arthroplasty changes with bony calcification near the medial aspect of the acetabular compon ent suggesting fracture. Further evaluation with CT recommended. [facility], , 10/26/2024 3:54 PM
[2024-10-26] MEDS: SENNOSIDES-DOCUSATE SODIUM 1 EACH TAB PO SCH (20:28)
[2024-10-27] MEDS: HYDROcodone/APAP 7.5-325MG 1 EACH TAB PO PRN (05:40)
[2024-10-27] MEDS: APIXABAN 5 MG TAB PO SCH (07:47)
[2024-10-27 09:24] LABS: Basophils # (A) 0.01 X 10*3/uL (0.00-0.10); Basophils % (A) 0.1 %; Eosinophils # (A) 0 X 10*3/uL (0.04-0.35); Eosinophils % (A) 0 %; HCT 32.4 % (39.6-50.0); Lymphocytes # (A) 0.81 X 10*3/uL (0.90-5.00); Lymphocytes % (A) 7.3 %; MCH 28.7 pg (27.0-32.0); MCHC 30.9 g/dL (32.0-37.0); MCV 93.1 FL (80.0-97.0); Mean Platelet Volume 10.2 FL (9.5-12.2); Monocytes # (A) 0.96 X 10*3/uL (0.20-1.00); Monocytes % (A) 8.7 %; NRBC Per 100 WBC 0 X 10*3/uL (0.00-0.01); Neutrophils # (A) 9.21 X 10*3/uL (1.80-7.70); Neutrophils % (A) 83.4 %; Platelet Count 195 X 10*3/uL (140-440); RBC 3.48 X 10*6/uL (4.40-5.60); RDW 15.5 % (11.5-14.5); WBC 11.04 X 10*3/uL (4.50-10.00)
--- NOTE | 2024-10-27 11:07 | P.DS ---
Providers Date of admission: 10/26/24 11:29 Expected date of discharge: 10/27/24 Attending physician: Ming Byrne Consults: 10/26/24 13:15 Consult Physician Routine Consulting Provider: Melissa Dubon Consult Reason/Comments: medical management Do you want consulting provider notified?: Yes Primary care physician: Stated None - Discharge Diagnosis(es) (1) Osteoarthritis of right hip Current Visit: Yes Status: Acute (2) S/P total hip arthroplasty Current Visit: Yes Status: Acute Hospital Course: This is an 84-year-old male with known history of degenerative arthritis of the right hip. The patient presented for evaluation as an outpatient. After discussion and consideration patient elects to proceed with total hip arthroplasty. The patient is seen preoperatively by Dr. Byrne and medically cleared for surgery by their primary care physician. Patient is admitted to [facility] on 10/26/2024 for total hip arthroplasty. The procedure is performed without complication or sequelae. The patient is doing well postoperatively. Labs and vital signs are stable on day of discharge. On day of discharge patient's hip incision is healing well. There is minimal erythema. There is no drainage noted at this time. There is minimal soft tissue swelling to the hip and thigh. Patient has full foot and ankle motion without difficulty or pain. Calf is soft and nontender to palpation. Neurovascular status to the right lower extremity is intact. Patient is discharged home in good condition. Please see med rec for accurate list of home medications. Plan - Discharge Summary Discharge Rx Participant: No New Discharge Prescriptions: New HYDROcodone/APAP 7.5-325MG [[place] 7.5-325] 1 - 2 tab PO Q6H PRN #32 tab PRN Reason: Pain Sennosides [Senokot] 2 tab PO DAILY PRN #60 tablet PRN Reason: Constipation No Action Atorvastatin [Lipitor] 80 mg PO HS Ferrous Sulfate [Iron (65 MG Elemental)] 325 mg PO DAILY #30 tab Furosemide [Lasix] 40 mg PO DAILY Aspirin 81 mg PO DAILY lisinopriL [Zestril] 2.5 mg PO DAILY amLODIPine [Norvasc] 5 mg PO DAILY Eliquis(Unknown Dose) 1 tab PO BID Discharge Medication List Atorvastatin [Lipitor] 80 mg PO HS 05/06/19 [History] Ferrous Sulfate [Iron (65 MG Elemental)] 325 mg PO DAILY #30 tab 05/15/20 [Rx] Furosemide [Lasix] 40 mg PO DAILY 09/15/20 [History] Aspirin 81 mg PO DAILY 12/10/23 [History] Eliquis(Unknown Dose) 1 tab PO BID 12/10/23 [History] amLODIPine [Norvasc] 5 mg PO DAILY 12/10/23 [History] lisinopriL [Zestril] 2.5 mg PO DAILY 12/10/23 [History] HYDROcodone/APAP 7.5-325MG [[place] 7.5-325] 1 - 2 tab PO Q6H PRN #32 tab 10/27/24 [Rx] Sennosides [Senokot] 2 tab PO DAILY PRN #60 tablet 10/27/24 [Rx] Follow up Appointment(s)/Referral(s): [facility] [[facility]] - Ming Byrne DO [Doctor of Osteopathic Medicine] - 2 Weeks Activity/Diet/Wound Care/Special Instructions: Weightbearing as tolerated with walker. Leave dressing intact. Dressing may be removed by home care nurse or by patient in 7 days. Then change dressing twice daily until follow up. May shower with initial dressing intact and after removal. If dressing become saturated, please remove. Please resume Eliquis and aspirin. Recommend use of compression stockings daily until follow up to help prevent swelling and blood clots. May remove at night before sleeping. [facility] with [facility] and call with any questions or concerns, . Discharge Disposition: HOME WITH HOME HEALTH SERVICES
[2024-10-27] MEDS: FERROUS SULFATE 325 MG TAB PO SCH (11:25)
[2024-10-27] MEDS: TAMSULOSIN 0.4 MG CAP.ER.24H PO STA (12:58)
[2024-10-27 13:58] VITALS: BP 103/57; PULSE 63; RESP 16; TEMP 98.1
[2024-10-27] MEDS ORDERED: ATORVASTATIN 80 MG TAB PO SCH (21:00)
--- NOTE | 2024-10-31 11:22 | P.CONS ---
History of Present Illness - Reason for Consult Consult date: 10/27/24 Medical management, status post right hip arthroplasty - History of Present Illness This is a pleasant 84-year-old male who was admitted under orthopedic services status post right total hip arthroplasty. Patient follows with Dr. Dawn's office and did obtain presurgical clearance along with cardiology clearance for surg raquel. Patient has a past medical history of coronary artery disease, heart failure, DVT, hyperlipidemia, hypertension, OA, prostate disorder, previous pulmonary embolism, renal disease. Patient reports to feeling well denies any chest pain or shortness of breath on exam has minimal pain in the right hip although is reporting some mild urinary retention. Patient did have Hair catheter removed and is dribbling and output being monitored. Will add Flomax and will continue on discharge for short period. Incentive spirometer at the bedside and patient encouraged to continue using including taking home. REVIEW OF SYSTEMS: CONSTITUTIONAL: No fever, no malaise, no fatigue. HEENT: No recent visual problems or hearing problems. Denied any sore throat. CARDIOVASCULAR: No chest pain, orthopnea, PND, no palpitations, no syncope. PULMONARY: No shortness of breath, no cough, no hemoptysis. GASTROINTESTINAL: No diarrhea, no nausea, no vomiting, no abdominal pain. NEUROLOGICAL: No headaches, no weakness, no numbness. HEMATOLOGICAL: Denies any bleeding or petechiae. GENITOURINARY: Denies any burning micturition, frequency, or urgency. Reporting dribbling and reports history of difficulty with urination after surgeries MUSCULOSKELETAL/RHEUMATOLOGICAL: Denies any joint pain, swelling, or any muscle pain. ENDOCRINE: Denies any polyuria or polydipsia. The rest of the 14-point review of systems is negative. PHYSICAL EXAMINATION: GENERAL: The patient is alert and oriented x3, not in any acute distress. Well developed, elderly appearing, obese HEENT: Pupils are round and equally reacting to light. EOMI. No scleral icterus. No conjunctival pallor. Normocephalic, atraumatic. No pharyngeal erythema. No thyromegaly. CARDIOVASCULAR: S1 and S2 present. No murmurs, rubs, or gallops. PULMONARY: Chest is clear to auscultation, no wheezing or crackles. ABDOMEN: Soft, nontender, nondistended, normoactive bowel sounds. No palpable organomegaly. MUSCULOSKELETAL: No joint swelling or deformity. EXTREMITIES: No cyanosis, clubbing, or pedal edema. Right hip surgical dressing is dry and intact with no significant swelling noted NEUROLOGICAL: Gross neurological examination did not reveal any focal deficits. SKIN: No rashes. Assessment: Status post right total hip arthroplasty History of heart failure, not in exacerbation History of coronary artery disease History of previous DVT and PE History of osteoarthritis History of renal disease Mild urinary retention, likely secondary to anesthesia effects as well as history of prostate disorder. Patient reports this has occurred previously with post surgeries History of prostate disorder Obesity with a BMI 31.3 GI prophylaxis DVT prophylaxis Full code Plan: Patient admitted under orthopedic services status post right total hip arthroplasty doing relatively well reports was able to work with physical therapy and will be going home Patient having some mild retention, is dribbling and having small amounts of urine although reports this frequently happens after surgeries. Will add Flomax and continue on discharge for short stent. Patient may need urology follow-up outpatient Encouraged incentive spirometer use at least 10 times every hour while awake Home medications reviewed and resumed as appropriate Patient did undergo presurgical clearance with cardiology and primary care provider. Instructed to follow-up with primary care provider on discharge Patient is medically stable once cleared by orthopedics for discharge Thank you kindly for this consultation. We will continue to follow with orthopedics during hospitalization. The impression and plan of care has been dictated by Lary Reyna, Nurse Practitioner as directed. Dr. Angela MD I have performed a history and examination and MDM of this patient, discussed the same with the dictator, and agree with the dictator's assessment and plan as written ,documented as a scribe. Based on total visit time, I have performed more than 50% of the visit. Past Medical History Past Medical History: Coronary Artery Disease (CAD), Heart Failure, Deep Vein Thrombosis (DVT), Hyperlipidemia, Hypertension, Osteoarthritis (OA), Pneumonia, Prostate Disorder, Pulmonary Embolus (PE), Renal Disease Additional Past Medical History / Comment(s): recurrent UTIs,UTI with sepsis, bladder stones and kidney stones, mild decreased kidney function, DVT,PE after knee surg. years ago, chronic anemia, chronic low back pain, neuropathy R foot, recent SOB w/exertion, recent stress test History of Any Multi-Drug Resistant Organisms: ESBL Year Discovered:: 09/22/23 MDRO Source:: URINE Past Surgical History: Appendectomy, Heart Catheterization, Heart Catheterization With Stent, Joint Replacement, Prostate Surgery Additional Past Surgical History / Comment(s): lithotripsy, Bladder stone removal, TURP, colonoscopy, left hip replaced Past Anesthesia/Blood Transfusion Reactions: No Reported Reaction Additional Past Anesthesia/Blood Transfusion Reaction / Comm: no reaction to blood transfusion Date of Last Stent Placement:: January 2019 Smoking Status: Former smoker - Past Family History Father Family Medical History: No Reported History Additional Family Medical History / Comment(s): Father was healthy and lived to be 95 yrs old. Mother Family Medical History: No Reported History Additional Family Medical History / Comment(s): . Medications and Allergies Home Medications Medication Instructions Recorded Confirmed Type Atorvastatin [Lipitor] 80 mg PO HS 05/06/19 10/26/24 History Ferrous Sulfate [Iron (65 MG 325 mg PO DAILY #30 tab 05/15/20 10/26/24 Rx Elemental)] Furosemide [Lasix] 40 mg PO DAILY 09/15/20 10/26/24 History Aspirin 81 mg PO DAILY 12/10/23 10/26/24 History amLODIPine [Norvasc] 5 mg PO DAILY 12/10/23 10/26/24 History Apixaban [Eliquis] 5 mg PO BID #60 tab 10/27/24 Rx HYDROcodone/APAP 7.5-325MG [Ida 1 - 2 tab PO Q6H PRN #32 tab 10/27/24 Rx 7.5-325] Magnesium Hydroxide [Milk of 2,400 mg PO DAILY PRN ml 10/27/24 Rx Magnesia] Sennosides [Senokot] 2 tab PO DAILY PRN #60 tablet 10/27/24 Rx Tamsulosin [Flomax] 0.4 mg PO DAILY 10 Days #10 cap 10/27/24 Rx Allergies Allergy/AdvReac Type Severity Reaction Status Date / Time No Known Allergies Allergy Verified 10/26/24 12:05 Physical Exam Vitals: Vital Signs Temp Pulse Pulse Resp BP BP Pulse Ox 10/27/24 06:59 97.5 F L 65 17 101/63 96 10/27/24 00:49 97.3 F L 62 17 119/72 91 L 10/26/24 19:28 97.4 F L 63 17 125/74 95 10/26/24 17:03 97.6 F 74 16 127/78 95 10/26/24 16:27 86 18 148/63 94 L 10/26/24 16:12 58 L 18 148/63 93 L 10/26/24 15:57 60 18 116/58 95 10/26/24 15:42 59 L 18 129/62 96 10/26/24 15:27 48 L 18 130/62 98 10/26/24 15:12 97.6 F 21 132/72 97 10/26/24 13:03 59 L 16 138/75 100 10/26/24 12:42 97.6 F 57 L 18 138/75 99 Intake and Output 10/26/24 10/27/24 10/27/24 22:59 06:59 14:59 Intake Total 0 Output Total 820 Balance 0 -820 Intake: IV 0 Output: Post Void Residual 820 Other: # Voids 0 0 Weight 90.6 kg Results CBC & Chem 7: 10/27/24 03:04 Labs: Abnormal Lab Results - Last 24 Hours (Table) 10/27/24 Range/Units 03:04 WBC 11.04 H (4.50-10.00) X 10*3/uL RBC 3.48 L (4.40-5.60) X 10*6/uL Hgb 10.0 L (13.0-17.0) g/dL Hct 32.4 L (39.6-50.0) % MCHC 30.9 L (32.0-37.0) g/dL RDW 15.5 H (11.5-14.5) % Immature Gran # 0.05 H (0.00-0.04) X 10*3/uL Neutrophils # 9.21 H (1.80-7.70) X 10*3/uL Lymphocytes # 0.81 L (0.90-5.00) X 10*3/uL Eosinophils # 0 L (0.04-0.35) X 10*3/uL
== END 2024-10-27 16:02 | disposition home health service (06) ==
LOC: OR 11:28 → 4SSUR 11:29
PROVIDERS: ADMIT Orthopaedic Surgery; ATTEND Orthopaedic Surgery
DX: M16.11 Unilateral primary osteoarthritis, right hip (principal)
CPT/HCPCS: 97162; 97166; 64999; 85025; 73501; 27130; G0378; C1776; J2250; J0330; J1100; J2710; J0690 ×3; J2405; J2003; J3010; J1171; J2795; J2704; J1596